=== PATIENT | female | born 1975 | race Caucasian/White ===

== ENCOUNTER 2019-10-02 15:37 | Emergency (ER) | payer SELFPAY ==
[2019-10-02 15:43] VITALS: BP 131/87; PULSE 88; RESP 18; TEMP 36.7; O2SAT 96
--- NOTE | 2019-10-02 16:16 | ED.GENADUL_ITS ---
Discharge Plan Disposition Patient Disposition: HOME Condition: Stable Discharge Details Chief Complaint: Orthopedic Clinical Impression: Contusion of elbow Primary Care Provider: Arlen Ryan ED Provider: Dena Honeycutt Home Meds and New Rx's Prescriptions: Continued amiloride 5 MG tablet 5 mg PO DAILY RF: 0 sumatriptan succinate 100 MG tablet 100 mg PO PRN PRNRF: 0 lisinopril 2.5 MG tablet 2.5 mg PO DAILY RF: 0 hydrochlorothiazide 12.5 MG tablet 12.5 mg PO DAILY RF: 0 naproxen 500 MG tablet 500 mg PO BID Qty: 60 RF: 0 potassium chloride [Klor-Con M10] 10 MEQ tablet,ER particles/crystals 20 meq PO DAILY Qty: 90 RF: 0 magnesium oxide 400 MG capsule 800 mg PO DAILY Qty: 90 RF: 0 pantoprazole [Protonix] 40 MG tablet,delayed release (DR/EC) 40 mg PO DAILY Qty: 30 RF: 0 oxycodone-acetaminophen 1 EACH tablet 1 ea PO QID PRN PRN (Reason: Pain) Qty: 10 RF: 0 ondansetron 4 MG tablet,disintegrating 4 mg PO QID PRN PRN (Reason: Nausea) Qty: 6 RF: 0 Discharge Instructions Instructions: Contusion in Adults (ED) Additional Instructions: Follow up with primary care provider in 3-5 days. Return to ED sooner if any worsening or concerns. Please take Tylenol or Ibuprofen with food every 4-6 hours as needed for pain and swelling. Rest ice compression elevation Referrals: Arlen Ryan [Primary Care Provider] - Discharge Data Discharge Date/Time-TO BE ENTERED AT DEPARTURE: 10/02/19 17:50 Medical Decision Making Radiology Report Call: [phone] assistance Online chat: [email or web address] Patient Name: CECILE HUNT Institution Name: [place] [address] Study Type: XR ELBOW COMPLETE MIN OF 3 VIEWS Ordered As: XR RIGHT ELBOW COMPLETE Date of Dictation: 02 Oct 2019 EST Date of Exam: 02 Oct 2019 EST Account Number: Patient : [id number] Patient Location: er Lead Fire Protection Engineer: Referring Physician: Dena HONEYCUTT This interpretation is based upon the receipt of 3 images. MILKING MACHINE MECHANIC (QA) DISCREPANCY? If there is a discrepancy between the preliminary and final interpretation, please notify [facility] via [email or web address]. If you do not have access to our QA portal, call our QA team at [phone] CONFIDENTIALITY STATEMENT This report is intended only for the use of the referring physician, and only in accordance with law, If you received this in error, call [phone] Page 1 of 1 PROCEDURE INFORMATION: Exam: XR Right Elbow Exam date and time: 10/02/2019 4:25 PM Age: 43 years old Clinical indication: Elbow; Right; Patient HX: Fall 14 days ago, pain. TECHNIQUE: Imaging protocol: XR Right elbow. Views: 3 or more views. COMPARISON: No relevant prior studies available. FINDINGS: Bones/joints: There is no evidence of acute fracture.There is no evidence of malalignment or dislocation. Soft tissues: Normal. IMPRESSION: There is no evidence of acute fracture.There is no evidence of malalignment or dislocation. Thank you for allowing us to participate in the care of your patient. Dictated and Authenticated by: Avery Roberts MD 10/02/2019 4:44 PM Eastern Time ([place] & [place]) No evidence of acute fracture, XR noted above. Patient given sling and nando wrap.Instructed on [facility] home care and follow up with PCP. HPI General Date/Time Provider Initiated Documentation: 10/02/19 16:13 . Limitations to Documentation: no limitations . Information obtained by: patient . HPI Narrative: 43-year-old female presents with right elbow contusion after a trip and fall on September 22 hitting her right elbow on the lip of cement. Denies any other complaints or injuries, no neck pain back pain or LOC. On exam she does have a contusion noted to the posterior part of her elbow. Has full range of motion distal pulses intact. Related Data Home Medications Medication Instructions Recorded Confirmed amiloride 5 mg PO DAILY 03/20/14 02/27/16 sumatriptan succinate 100 mg PO PRN PRN 01/05/15 02/27/16 hydrochlorothiazide 12.5 mg PO DAILY 10/05/15 02/27/16 lisinopril 2.5 mg PO DAILY 10/05/15 02/27/16 magnesium oxide 800 mg PO DAILY #90 capsule 10/06/15 02/27/16 naproxen 500 mg PO BID #60 tablet 10/06/15 02/27/16 pantoprazole [Protonix] 40 mg PO DAILY #30 tablet. 10/06/15 02/27/16 potassium chloride [Klor-Con M10] 20 meq PO DAILY #90 tabcr 10/06/15 02/27/16 ondansetron 4 mg PO QID PRN PRN #6 tabef 02/27/16 oxycodone-acetaminophen 1 ea PO QID PRN PRN #10 tablet 02/27/16 Previous Rx's Medication Instructions Recorded magnesium oxide 800 mg PO DAILY #90 capsule 10/06/15 naproxen 500 mg PO BID #60 tablet 10/06/15 pantoprazole [Protonix] 40 mg PO DAILY #30 tablet. 10/06/15 potassium chloride [Klor-Con M10] 20 meq PO DAILY #90 tabcr 10/06/15 ondansetron 4 mg PO QID PRN PRN #6 tabef 02/27/16 oxycodone-acetaminophen 1 ea PO QID PRN PRN #10 tablet 02/27/16 Allergies Allergy/AdvReac Type Severity Reaction Status Date / Time adhesive Allergy rash/bliste Unverified 10/02/19 15:48 rs Penicillins Allergy Hives Unverified 10/02/19 15:48 eggplant Allergy Skin Rash Uncoded 10/02/19 15:48 peppers Allergy Skin Rash Uncoded 10/02/19 15:48 potatoes Allergy Skin Rash Uncoded 10/02/19 15:48 tomatoes Allergy Skin Rash Uncoded 10/02/19 15:48 General Stated Complaint: Orthopedic PJ: 4 Review of Systems Narrative: Constitutional: Negative for weight loss, alert and oriented, well groomed, normal body habitus, appears comfortable. HEENT: Denies trauma, headaches, blurry vision, nasal discharge, sore throat, trouble swallowing. Chest: Denies chest pain, palpitations, irregular rhythm, hypertension. Respiratory: Denies Shortness of breath, cough, hemoptysis. GI: Denies abdominal pain, nausea, vomiting, diarrhea, constipation. : Denies dysuria, hematuria, flank pain, vaginal bleeding, rectal bleeding. Neuro: Denies dizziness, blurry vision, weakness, syncope, headache or facial numbness. Hematologic: Denies easy bruising, intolerance to heat or cold, hair loss. PFSH Social History Smoking/Tobacco Use Status: Never Drug use: Daily Substance use type: marijuana Do you feel safe at home: Yes Do you feel safe in your relationship?: Yes Exam Const General: cooperative Nutritional Appearance: average body habitus Orientation: alert, awake and oriented x3 Extrem Right upper extremity: full ROM, normal capillary refill and elbow/forearm Details: tenderness and ecchymosis; ROM normal, no abrasions, no crepitus and no deformity; no edema Course Vital Signs Vital signs: Vital Signs Temperature 36.7 C 10/02/19 15:43 Pulse 88 10/02/19 15:43 Respiratory Rate 18 10/02/19 15:43 Blood Pressure 131/87 10/02/19 15:43 Pulse Oximetry 96 10/02/19 15:43 Temperature 36.7 C 10/02/19 15:43 Temperature Source Skin 10/02/19 15:43 Pulse 88 10/02/19 15:43 Respiratory Rate 18 10/02/19 15:43 Respiratory Effort Non-Labored 10/02/19 15:47 Blood Pressure 131/87 10/02/19 15:43 Blood Pressure Position Sitting 10/02/19 15:43 Pulse Oximetry 96 10/02/19 15:43 Oxygen Delivery Method Room Air 10/02/19 15:43 Oxygen Flow Rate 0 10/02/19 15:43 Pain Level 7 10/02/19 15:43
--- NOTE | 2019-10-02 16:24 | DI.RAD_ITS ---
EXAM: XR ELBOW RT COMPLETE CLINICAL HISTORY: Fall, injury. TECHNIQUE: 2D digital imaging was performed. COMPARISON: No exams were available for comparison FINDINGS: BONES: No acute fracture is present. No bony destructive lesion is seen. JOINTS: The elbow is normally aligned. No joint effusion is seen. SOFT TISSUE: Normal. IMPRESSION: Unremarkable radiographs of the right elbow.
--- NOTE | 2019-10-02 16:43 | DI.VRAD_ITS ---
PROCEDURE INFORMATION: Exam: XR Right Elbow Exam date and time: 10/02/2019 4:25 PM Age: 43 years old Clinical indication: Elbow; Right; Patient HX: Fall 14 days ago, pain. TECHNIQUE: Imaging protocol: XR Right elbow. Views: 3 or more views. COMPARISON: No relevant prior studies available. FINDINGS: Bones/joints: There is no evidence of acute fracture.There is no evidence of malalignment or dislocation. Soft tissues: Normal. IMPRESSION: There is no evidence of acute fracture.There is no evidence of malalignment or dislocation. Dictated and Authenticated by: Avery Roberts MD. Ordering:GIANFRANCO Fernandes MD
[2019-10-02] MEDS: Ibuprofen 400 MG TAB PO (17:26)
[2019-10-02 17:36] VITALS: BP 131/87; PULSE 88; RESP 18; TEMP 36.7; O2SAT 96
== END 2019-10-02 17:50 | disposition home or self-care (01) ==
PROVIDERS: Emergency Provider Registered Nurse Emergency; PCP Naturopath
DX: S50.01XA Contusion of right elbow, initial encounter (principal); W01.0XXA Fall on same level from slipping, tripping and stumbling without subsequent striking against object, initial encounter
CPT/HCPCS: 99283; 73080; L3650

== ENCOUNTER 2020-06-19 19:22 | Outpatient (REF) | payer MEDICAID, SELFPAY ==
[2020-06-19 19:44] LABS: HCT 39.3 % (36.0-46.0); HGB 13.7 g/dL (11.2-15.7); MCH 31.6 pg (27.0-33.0); MCHC 34.9 % (32.0-36.0); MCV 90.6 fL (80-95); MPV 11.6 fL (8.0-11.0); Platelet Count 264 10^3/uL (130-400); RBC 4.34 10^6/uL (3.93-5.22); RDW 12.5 % (11.7-14.6); RDW-SD 41.2 fL; WBC 5.42 10^3/uL (4.4-10.8)
[2020-06-19 20:02] LABS: Anion Gap 6.9 mmol/L (3-11); BUN 12 mg/dL (7-18); C-Reactive Protein 0.24 mg/dL (0.0-0.3); CO2 31.1 mmol/L (21.0-32.0); CREATININE 0.84 mg/dL (0.55-1.02); Calcium 9.6 mg/dL (8.5-10.1); Chloride 102 mmol/L (98-107); Glucose 101 mg/dL (74-106); Sodium 140 mmol/L (136-145)
[2020-06-19 20:08] LABS: Potassium 2.9 mmol/L (3.5-5.1)
[2020-06-19 20:43] LABS: ESR 16 mm/hr (0-20)
[2020-06-21 15:07] LABS: ANA Interpretation Positive (Negative); ANA Titer Pattern 1:160 Speckled
== END 2020-06-19 19:42 ==
LOC: NCHCN 19:22
PROVIDERS: PCP Naturopath; Visit Provider Nurse Practitioner Family
DX: M25.59 Pain in other specified joint (principal)
CPT/HCPCS: 80048; 85027; 85652; 84443; 86038; 86140

== ENCOUNTER 2020-07-04 21:24 | Outpatient (REF) | payer MEDICAID, SELFPAY ==
[2020-07-04 19:44] LABS: Potassium 3.2 mmol/L (3.5-5.1)
== END 2020-07-04 21:44 ==
LOC: NCHCN 21:24
PROVIDERS: PCP Naturopath; Visit Provider Nurse Practitioner Family
DX: E87.6 Hypokalemia (principal)
CPT/HCPCS: 84132

== ENCOUNTER 2020-07-25 10:17 | Outpatient (REF) | payer MEDICAID, SELFPAY ==
[2020-07-25 19:29] LABS: Potassium 3.6 mmol/L (3.5-5.1)
== END 2020-07-25 10:37 ==
LOC: NCHCN 10:17
PROVIDERS: PCP Naturopath; Visit Provider Nurse Practitioner Family
DX: E87.6 Hypokalemia (principal)
CPT/HCPCS: 84132

== ENCOUNTER 2020-10-04 00:29 | Outpatient (CLI) | payer MEDICAID, SELFPAY ==
--- NOTE | 2020-10-04 | DI.MRI_ITS ---
EXAM: MR LUMBAR SPINE WO CLINICAL HISTORY: LUMBAR RADICULITIS,M54.16. TECHNIQUE: Multiplanar multisequence MRI of the Lumbar spine was performed. COMPARISON: CT ABD PELVIS WITH CONTRAST from 02/27/2016 FINDINGS: Bones: The last intervertebral disc space is designated the L5/S1 level for the numbering purpose of this examination. The vertebral body heights are well maintained. Alignment is satisfactory. Mild d egenerative endplate signal changes are seen from L1-L2 through L4-L5. There is a Schmorl's node in t he superior endplate of L4. Cord: The conus tip ends at the L1 level. It is of normal size and signal intensity. T12-L1: No disc herniations or bulges are present. No central spinal canal or neural foraminal stenos is. L1-2: No disc herniations or bulges are present. No central spinal canal or neural foraminal stenosis . L2-3: No disc herniations or bulges are present. No central spinal canal or neural foraminal stenosis . L3-4: There is disc desiccation and a small diffuse disc bulge. No central spinal canal or neural fo raminal stenosis. L4-5: There is disc desiccation and a small diffuse disc bulge. No central spinal canal or neural fo raminal stenosis. L5-S1: No disc herniations or bulges are present. No central spinal canal or neural foraminal stenosi s. Soft tissues: The visualized SI joints and sacrum are well maintained. The paraspinal soft tissues ar e unremarkable. IMPRESSION: Mild degenerative changes in the lumbar spine but no central spinal canal stenosis, focal disc hernia tion or neural foraminal stenosis. DATA REPOSITORY:
== END 2020-10-04 00:30 | disposition home or self-care (01) ==
LOC: DI 00:30
PROVIDERS: PCP Nurse Practitioner Family; Visit Provider Nurse Practitioner Family
DX: M47.816 Spondylosis without myelopathy or radiculopathy, lumbar region (principal); M54.16 Radiculopathy, lumbar region
CPT/HCPCS: 72148

== ENCOUNTER 2020-10-23 11:12 | Outpatient (REF) | payer MEDICAID, SELFPAY ==
[2020-10-23 16:55] LABS: Anion Gap 10.1 mmol/L (3-11); BUN 15 mg/dL (7-18); CO2 28.9 mmol/L (21.0-32.0); CREATININE 0.7 mg/dL (0.55-1.02); Calcium 9.1 mg/dL (8.5-10.1); Chloride 101 mmol/L (98-107); Glucose 97 mg/dL (74-106); Magnesium 1.9 mg/dL (1.8-2.4); Sodium 140 mmol/L (136-145)
[2020-10-23 17:27] LABS: Iron 76 ug/dL (50-170); Total Iron Binding Capacity 314 ug/dL (250-450); Transferrin Sat 24 % (15-50)
[2020-10-23 18:55] LABS: Potassium 2.9 mmol/L (3.5-5.1)
[2020-10-25 04:42] LABS: Vitamin D 25 Total 24.9 ng/ml (30-100)
== END 2020-10-23 11:13 | disposition home or self-care (01) ==
LOC: NCHCN 11:12
PROVIDERS: PCP Nurse Practitioner Family; Visit Provider Nurse Practitioner Family
DX: R53.83 Other fatigue (principal); E55.9 Vitamin D deficiency, unspecified
CPT/HCPCS: 80048; 82306; 83540; 83550; 83735

== ENCOUNTER 2020-11-02 13:50 | Outpatient (REF) | payer MEDICAID, SELFPAY ==
[2020-11-02 15:59] LABS: Potassium 3.6 mmol/L (3.5-5.1)
== END 2020-11-02 13:51 | disposition home or self-care (01) ==
LOC: NCHCN 13:50
PROVIDERS: PCP Nurse Practitioner Family; Visit Provider Nurse Practitioner Family
DX: E87.6 Hypokalemia (principal)
CPT/HCPCS: 84132

== ENCOUNTER 2020-11-27 09:29 | Outpatient (CLI) | payer MEDICAID, SELFPAY ==
[2020-11-27 09:38] VITALS: BP 118/82; PULSE 77; RESP 16; TEMP 36.5; O2SAT 97
[2020-11-27] MEDS: Omnipaque 240 MG/ML 50 ML BTL IJ (10:30)
[2020-11-27] MEDS: methylPREDNISolone ACETATE 80 MG/ML VIAL IJ (10:34)
--- NOTE | 2020-11-27 10:35 | DI.RAD_ITS ---
EXAM: XR PAIN CLINIC SACRIOILIAC 2V CLINICAL HISTORY: Dx: Sacroiliac Joint Dysfunction. TECHNIQUE: Fluoroscopy was provided for the referring physician for guidance with performing injecti on procedure. COMPARISON: No exams were available for comparison FINDINGS: Please see procedure note for details. RADIATION DOSE DELIVERED: Fluoro time 36 seconds.
--- NOTE | 2020-11-27 10:36 | PDOC.PAIN_ITS ---
Pain Clinic Procedure Note Procedure Note Procedure Note: INTRA-ARTICULAR SI JOINT INJECTION CECILE HUNT has been referred to the [facility] for intra- articular SI joint injection. pre-operative diagnosis: sacroiliac joint dysfunction post-operative diagnosis: same as above Patient was interviewed and the medical record reviewed. There were no medical, pharmacologic, radiographic or other structural contraindications to attempting fluoroscopically guided intra-articular SI joint injection. Risks and expected side effects as well as potential benefit of the procedure were reviewed and voiced concerns addressed. The printed consent form was signed and witnessed. Standard time-out procedure was performed. Patient was placed in the prone position on the fluoroscopy table and automated blood pressure cuff and pulse oximeter applied. The skin entry point for approaching right SI joints was identified under the most advantageous fluoroscopic view and marked. Following thorough Chlorhexadine preparation of the skin and draping and 1% lidocaine infiltration of the skin entry point and subcutaneous tissues, a 22 gauge spinal needle was placed under fluoroscopic guidance into right SI joints was identified under the most advantageous fluoroscopic view and marked. Following thorough Chlorhexadine preparation of the skin and draping and 1% lidocaine infiltration of the skin entry point and subcutaneous tissues, a 22 gauge spinal needle was placed under fluoroscopic guidance into right SI joint. Intra-articular placement was confirmed by a clear arthrogram resulting from the injection of 0.25ml Omnipaque 240, 1ml 1% lidocaine, and 40mg Depomedrol were injected intra-articularily with an initial reproduction of a significant component of the usual pain. Vital signs were stable throughout the procedure and were as recorded in the docflowsheet by the nursing staff. Follow up plans and appointments were discussed with the patient. Post procedure instruction was given as documented in nursing documentation and having met discharge criteria, and was discharged from the [facility]. COMMENTS: patient tolerated procedure well. Letitia Kilgore MD Pain Management CC: Angelica Murphy
[2020-11-27 10:43] VITALS: BP 124/76; PULSE 82; RESP 18; O2SAT 98
== END 2020-11-27 09:30 | disposition home or self-care (01) ==
LOC: PC 09:29
PROVIDERS: PCP Nurse Practitioner Family; Visit Provider Internal Medicine
DX: M53.3 Sacrococcygeal disorders, not elsewhere classified (principal)
CPT/HCPCS: 27096; 72200; J1040; Q9967

== ENCOUNTER 2020-12-18 14:58 | Outpatient (REF) | payer MEDICAID, SELFPAY ==
[2020-12-18 13:26] LABS: Potassium 3.3 mmol/L (3.5-5.1)
== END 2020-12-18 14:59 | disposition home or self-care (01) ==
LOC: NCHCN 14:58
PROVIDERS: PCP Nurse Practitioner Family; Visit Provider Nurse Practitioner Family
DX: E87.6 Hypokalemia (principal)
CPT/HCPCS: 84132

== ENCOUNTER 2021-01-16 15:20 | Outpatient (REF) | payer MEDICAID, SELFPAY ==
[2021-01-16 16:01] LABS: Potassium 3.6 mmol/L (3.5-5.1)
== END 2021-01-16 15:21 | disposition home or self-care (01) ==
LOC: NCHCN 15:20
PROVIDERS: PCP Nurse Practitioner Family; Visit Provider Nurse Practitioner Family
DX: E87.6 Hypokalemia (principal)
CPT/HCPCS: 84132

== ENCOUNTER 2021-01-17 13:57 | Outpatient (REF) | payer MEDICAID, SELFPAY ==
[2021-01-21 15:16] LABS: 2-Hydroxy Ethyl Flurazepam Not Detected ng/mL (Cutoff: 10); 3,4-methylenedioxyamphetamine Not Detected ng/mL (Cutoff: 100); 3,4-methylenedioxyethylampheta Not Detected ng/mL (Cutoff: 100); 3,4-methylenedioxymethamphetam Not Detected ng/mL (Cutoff: 100); 6-monoacetylmorphine Not Detected ng/mL (Cutoff: 25); Alpha-Hydroxy Midazolam Not Detected ng/mL (Cutoff: 10); Alpha-Hydroxy Triazolam Not Detected ng/mL (Cutoff: 10); Alpha-Hydroxyalprazolam Not Detected ng/mL (Cutoff: 10); Alpha-OH-alprazolam Glucuronid Not Detected ng/mL (Cutoff: 50); Alprazolam Not Detected ng/mL (Cutoff: 10); Amphetamine Not Detected ng/mL (Cutoff: 100); Barbiturates Negative ng/mL (Cutoff: 200); Buprenorphine Not Detected ng/mL (Cutoff: 5); Chlordiazepoxide Not Detected ng/mL (Cutoff: 10); Clobazam Not Detected ng/mL (Cutoff: 10); Clonazepam Not Detected ng/mL (Cutoff: 10); Cocaine Negative ng/mL (Cutoff: 150); Codeine Not Detected ng/mL (Cutoff: 25); Comment Normal; Diazepam Not Detected ng/mL (Cutoff: 10); Dihydrocodeine Not Detected ng/mL (Cutoff: 25); EDDP Not Detected ng/mL (Cutoff: 25); Ephedrine Not Detected ng/mL (Cutoff: 100); Fentanyl Not Detected ng/mL (Cutoff: 2); Flurazepam Not Detected ng/mL (Cutoff: 10); Hydrocodone Not Detected ng/mL (Cutoff: 25); Hydromorphone Not Detected ng/mL (Cutoff: 25); Hydromorphone-3-beta-glucuroni Not Detected ng/mL (Cutoff: 100); Lorazepam Not Detected ng/mL (Cutoff: 10); Lorazepam Glucuronide Not Detected ng/mL (Cutoff: 50); Meperidine Not Detected ng/mL (Cutoff: 25); Methadone Not Detected ng/mL (Cutoff: 25); Methamphetamine Not Detected ng/mL (Cutoff: 100); Methylphenidate Not Detected ng/mL (Cutoff: 20); Midazolam Not Detected ng/mL (Cutoff: 10); Morphine Not Detected ng/mL (Cutoff: 25); N-Desmethylclobazam Not Detected ng/mL (Cutoff: 200); N-desmethyltapentadol Not Detected ng/mL (Cutoff: 50); Naloxone Not Detected ng/mL (Cutoff: 25); Norbuprenorphine Not Detected ng/mL (Cutoff: 5); Norfentanyl Not Detected ng/mL (Cutoff: 2); Norhydrocodone Not Detected ng/mL (Cutoff: 25); Normeperidine Not Detected ng/mL (Cutoff: 25); Noroxycodone Not Detected ng/mL (Cutoff: 25); Noroxymorphone Not Detected ng/mL (Cutoff: 25); O-desmethyltramadol Not Detected ng/mL (Cutoff: 25); Oxazepam Glucuronide Not Detected ng/mL (Cutoff: 50); Phencyclidine (PCP) Not Detected ng/mL (Cutoff: 20); Phentermine Not Detected ng/mL (Cutoff: 100); Prazepam Not Detected ng/mL (Cutoff: 10); Propoxyphene Not Detected ng/mL (Cutoff: 25); Pseudoephedrine Not Detected ng/mL (Cutoff: 100); Ritalinic Acid Not Detected ng/mL (Cutoff: 100); Specific Gravity 1.004; Tapentadol Not Detected ng/mL (Cutoff: 25); Temazepam Not Detected ng/mL (Cutoff: 10); Temazepam Glucuronide Not Detected ng/mL (Cutoff: 50); Tetrahydrocannabinol Presumptive Positive ng/mL (Cutoff: 50); Tramadol Not Detected ng/mL (Cutoff: 25); Triazolam Not Detected ng/mL (Cutoff: 10); Zolpidem Phenyl-4-Carboxy acid Not Detected ng/mL (Cutoff: 10); pH 7.9
[2021-01-22 06:54] LABS: Carboxy-THC Interpretation Positive.; Delta-9 CarboxyThc by LC-MS/MS 224 ng/mL (Cutoff:<3)
== END 2021-01-17 13:58 | disposition home or self-care (01) ==
LOC: LBN 13:57
PROVIDERS: PCP Nurse Practitioner Family; Visit Provider Nurse Practitioner Family
DX: M47.816 Spondylosis without myelopathy or radiculopathy, lumbar region (principal); M53.3 Sacrococcygeal disorders, not elsewhere classified; Z79.899 Other long term (current) drug therapy
CPT/HCPCS: 80307; 80347; 80349; 80364

== ENCOUNTER 2021-02-01 14:52 | Outpatient (CLI) | payer MEDICAID, SELFPAY ==
--- NOTE | 2021-02-01 | DI.RAD_ITS ---
Exam(s) XR KNEE RT 3V AP,LAT,EKATERINA EXAM: XR KNEE RT 3V AP,LAT,EKATERINA CLINICAL HISTORY: RT KNEE PAIN M25.561. TECHNIQUE: 2D digital imaging was performed. COMPARISON: CR CHEST 2 VIEWS PA,LAT from 10/05/2015 FINDINGS: BONES: No acute fracture is present. No bony destructive lesion is seen. JOINTS: The knee is normally aligned. No joint effusion is seen. SOFT TISSUE: Normal. IMPRESSION: Unremarkable radiographs of the right knee. DATA REPOSITORY: RADIATION DOSE DELIVERED:
== END 2021-02-01 15:12 ==
PROVIDERS: PCP Nurse Practitioner Family; Visit Provider Nurse Practitioner Family
DX: M25.561 Pain in right knee (principal)
CPT/HCPCS: 73562

== ENCOUNTER 2021-02-19 09:44 | Outpatient (CLI) | payer MEDICAID, SELFPAY ==
--- NOTE | 2021-02-19 06:00 | DI.RAD_ITS ---
Exam(s) XR PAIN CLINIC LUMBAR SP 2V EXAM: XR PAIN CLINIC LUMBAR SP 2V CLINICAL HISTORY: Dx: Lumbar Spondylosis TECHNIQUE: 2D and realtime digital imaging was performed. COMPARISON: No exams were available for comparison FINDINGS: C-arm fluoroscopy was utilized by Dr. Kilgore during bilateral lumbar medial branch blocks. Hard copies s how needle placement bilaterally adjacent to the neural foramina at the L3-4, L4-5, and L5 S levels b ilaterally. IMPRESSION: RADIATION DOSE DELIVERED: rose marie Diaz= 14.2 mGy
[2021-02-19 10:07] VITALS: BP 123/70; PULSE 85; RESP 14; TEMP 36.6; O2SAT 100
[2021-02-19] MEDS: Omnipaque 240 MG/ML 50 ML BTL IJ (10:43)
[2021-02-19] MEDS: Bupivacaine 0.5% Pres-Free 10 ML VIAL IJ (10:44)
[2021-02-19 10:46] VITALS: BP 139/62; PULSE 76; RESP 17; O2SAT 99
--- NOTE | 2021-02-19 10:56 | PDOC.PAIN ---
Pain Clinic Procedure Note Procedure Note Procedure Note: Lumbar/Sacral Medial Branch Blocks Barbi Ivey has been referred to the [facility] for lumbar/sacral medial branch blocks. Pre-operative diagnosis: lumbar spondylosis Post-operative diagnosis: same as above COMMENTS: patient was evlauated by Ms Leigh Dodge APRN in pain clinic, notes and images were reviewed by me. patient is here for diagnostic lumbar medial branch nerve block. Patient was interviewed and the medical record reviewed. There were no medical, pharmacologic, radiographic or other structural contraindications to attempting fluoroscopically guided local anesthetic lumbar/sacral medial branch blocks. Risks and expected side effects as well as potential benefit of the procedure were reviewed and voiced concerns addressed. The printed consent form was signed and witnessed. Standard time-out procedure was performed. Patient was placed in the prone position on the fluoroscopy table and automated blood pressure cuff and pulse oximeter applied. The skin entry points for approaching the anatomic target points of the segmental medial branches of bilateral L3, L4, L5-DR were identified with anfluoroscopy and marked. Following thorough Chlorhexadine preparation of the skin and draping and 1% lidocaine infiltration of the skin entry points and subcutaneous tissues, a 22 gauge spinal needle was placed under fluoroscopic guidance down on to the target point for each respective segmental medial branch.Position was confirmed in A/P, oblique and lateral views with 0.25ml of omnipaque 240. Coult be this method .5ml 0.5% Bupivacaine was injected . Vital signs were stable throughout the procedure and were as recorded in the docflowsheet by the nursing staff. Follow up plans and appointments were discussed and was instructed to keep careful note of how the usual pain was modified by these injections. Specifically was asked to keep a pain diary for the next 24 hours using a numeric pain scale of 0-10 and report these results at the follow-up visit. Post procedure instruction was given as documented in the nursing documentation and having met discharge criteria. Patient was discharged from the Pain Management Center. Based on the medial branches blocked today, if the patient has adequate relief and we are able to proceed to radiofrequency ablation, the treatment should result in the denervation of the bilateral L4/5 and L5/S1. We would expect to denervate a total of 4 facets during the radiofrequency ablation. COMMENTS: pre-procedure VAS score 7 out of 10, post-procedure VAS score 6/10 Letitia Kilgore MD Pain Management CC: Angelica Murphy
== END 2021-02-19 09:45 | disposition home or self-care (01) ==
LOC: PC 09:45
PROVIDERS: PCP Nurse Practitioner Family; Visit Provider Internal Medicine
DX: M47.816 Spondylosis without myelopathy or radiculopathy, lumbar region (principal)
CPT/HCPCS: 64493; 64494; 72100; Q9967

== ENCOUNTER 2021-02-27 01:21 | Outpatient (CLI) | payer MEDICAID, SELFPAY ==
--- NOTE | 2021-02-27 | DI.MAMMO_ITS ---
Exam(s) MAMMO DIAGNOSTIC BI EXAM: MAMMO DIAGNOSTIC BI CLINICAL HISTORY: DIAGNOSTIC, RT BREAST LUMP. TECHNIQUE: Unilateral spot mammographic images were obtained with 3D [employer] and util izing computer aided detection (CAD). COMPARISON: Prior mammograms dating back to 2014, the most recent being 2015. This 45 year old patie nt feels a lump at approximately 6 o'clock position of right breast where she recently had a bruise w ith skin discoloration (which has decreased) but she does not recall actual trauma to the breast. Den ies fever and denies nipple discharge. FINDINGS: No new significant radiograph findings in left breast. The anterior aspect right breast 6 o'clock position subtle somewhat amorphous density which correspon ds to a palpable finding and the finding on the ultrasound today. There are no malignant-appearing mi crocalcification groups is region or elsewhere in either breast. No new architectural distortion or skin thickening-traction IMPRESSION: Asymmetric amorphous appearing density at 6 o'clock position, this corresponding to a thin fluid jodie ection a seen on today's ultrasound and exactly corresponding to her palpable finding. These findings have benign appearance. Appropriate follow-up is repeat right breast imaging in 3 months, earlier if clinically indicated. The patient was informed of the findings and follow-up recommendations prior to leaving the [facility]. BI-RADS Category 3 - 3 month - Probably Benign Finding: Recommend follow-up mammography in 3 months Breast Density - Category B - Scattered areas of fibroglandular density Breast density Category C or D implies that the patient has dense breast tissue. Dense breast tissue can make it harder to find cancer on a mammogram. Dense breast tissue is also associated with an incr eased risk of breast cancer. This information about the result of the mammogram report was provided to the patient to raise their awareness. Use this report when you speak with the patient about their risks for breast cancer, which includes their family history. At that time, you may recommend additional screening tests (Ultrasoun d or MRI) as these tests may add significant information. A negative radiographic report should not delay biopsy if a dominant or clinically suspicious mass is present. Up to ten percent of cancers are not identified on mammography. A negative report may reinforce clinical impression. Adenosis and dense breasts may obscure an underlying neoplasm. False positive reports average 6 to 10%. Patient will receive a letter notifying them of these results.
--- NOTE | 2021-02-27 | DI.US_ITS ---
Exam(s) US BREAST RT COMPLETE EXAM: US BREAST RT COMPLETE CLINICAL HISTORY: RT BREAST LUMP, F/U MAMMO. TECHNIQUE: Complete ultrasound of the RIGHT breast was performed including all 4 quadrants, the retr oareolar region, and the ipsilateral axilla. COMPARISON: Prior mammograms were reviewed. Today's diagnostic right breast mammogram was reviewed this 45-year-old patient feels a lump in her right breast, apparently in an area of previous skin dis coloration from apparent bruise. She denies fevers and denies nipple discharge. FINDINGS: At the 5-6 o'clock position there is a thin fluid collection which corresponds to the finding on the mammogram. This measures approximately 16 millimeters x 2.5 millimeters. No other focal findings in all 4 quadrants nor in the immediate retroareolar region. Ipsilateral right axilla is negative for significant adenopathy. IMPRESSION: Benign-appearing finding at 5-6 o'clock position as described above, this correspond to the finding o n the mammogram. Appropriate follow-up is repeat right breast ultrasound in 3 months, earlier if clinically indicated. BI-RADS Category 3 - 3 month - Probably Benign Finding: Recommend follow-up ultrasound in 3 months Breast Density - Category B - Scattered areas of fibroglandular density Breast density Category C or D implies that the patient has dense breast tissue. Dense breast tissue can make it harder to find cancer on a mammogram. Dense breast tissue is also associated with an incr eased risk of breast cancer. This information about the result of the mammogram report was provided to the patient to raise their awareness. Use this report when you speak with the patient about their risks for breast cancer, which includes their family history. At that time, you may recommend additional screening tests (Ultrasoun d or MRI) as these tests may add significant information. A negative radiographic report should not delay biopsy if a dominant or clinically suspicious mass is present. Up to ten percent of cancers are not identified on mammography. A negative report may reinforce clinical impression. Adenosis and dense breasts may obscure an underlying neoplasm. False positive reports average 6 to 10%. Patient will receive a letter notifying them of these results.
== END 2021-02-27 01:41 ==
PROVIDERS: PCP Nurse Practitioner Family; Visit Provider Nurse Practitioner Family
DX: N63.15 Unspecified lump in the right breast, overlapping quadrants (principal); R92.8 Other abnormal and inconclusive findings on diagnostic imaging of breast
CPT/HCPCS: 76642; 77062; 77066; G0279

== ENCOUNTER 2021-05-31 02:32 | Outpatient (CLI) | payer MEDICAID, SELFPAY ==
--- NOTE | 2021-05-31 | DI.US_ITS ---
Exam(s) US BREAST RT COMPLETE EXAM: US BREAST RT COMPLETE CLINICAL HISTORY: 3 MO F/U,F/U MAMMO,DENSITY TECHNIQUE: Ultrasound right breast performed using standard protocol. COMPARISON: US US BREAST RT COMPLETE from 02/27/2021 FINDINGS: No solid mass, hypoechoic foci, areas of abnormal shadowing, or areas of skin thickening. The linear thin fluid collection is again seen at the 5 o'clock position of the right breast. This may represen t a duct. There appears to be some internal debris. No definite mass is appreciated. IMPRESSION: 1. No definite evidence for malignancy. Stable appearance of the fluid collection at the 5 o'clock p osition of the right breast. This may represent a duct. 2. A 3 month follow-up right ultrasound is recommended. 3. Findings were discussed with the patient on the date of the examination. BI-RADS Category 3 - Probably Benign Finding: Recommend follow-up imaging in 3 months DATA REPOSITORY:
== END 2021-05-31 02:52 ==
PROVIDERS: PCP Nurse Practitioner Family; Visit Provider Nurse Practitioner Family
DX: R92.8 Other abnormal and inconclusive findings on diagnostic imaging of breast (principal)
CPT/HCPCS: 76642

== ENCOUNTER 2021-09-02 00:32 | Outpatient (CLI) | payer MEDICAID, SELFPAY ==
--- NOTE | 2021-09-02 | DI.US_ITS ---
Exam(s) US BREAST RT COMPLETE EXAM: US BREAST RT COMPLETE CLINICAL HISTORY: RT BREAST LUMP, N63.0, 3 MONTH F/U, R92.8 TECHNIQUE: Ultrasound right breast performed using standard protocol. COMPARISON: MG MG MAMMO DIAGNOSTIC BI from 02/27/2021 US US BREAST RT COMPLETE from 02/27/2021 US US BREAST RT COMPLETE from 02/27/2021 MG MG MAMMO DIAGNOSTIC BI from 02/27/2021 US US BREAST RT COMPLETE from 05/31/2021 US US BREAST RT COMPLETE from 05/31/2021 FINDINGS: No solid or cystic masses, hypoechoic foci, areas of abnormal shadowing, or areas of skin thickening. Previously noted elongated fluid collection or versus dilated duct is no longer seen. IMPRESSION: No sonographically suspicious finding. BI-RADS Category 1 - Negative Bilateral screening mammography is due in January 2022. DATA REPOSITORY:
== END 2021-09-02 00:52 ==
PROVIDERS: PCP Nurse Practitioner Family; Visit Provider Nurse Practitioner Family
DX: R92.8 Other abnormal and inconclusive findings on diagnostic imaging of breast (principal); N63.15 Unspecified lump in the right breast, overlapping quadrants
CPT/HCPCS: 76642

== ENCOUNTER 2021-10-09 01:49 | Outpatient (CLI) | payer MEDICAID, SELFPAY ==
[2021-10-09 10:01] LABS: Iron 87 ug/dL (50-170); Total Iron Binding Capacity 313 ug/dL (250-450)
[2021-10-09 10:10] LABS: ALT 32 U/L (14-59); AST 21 U/L (15-37); Albumin 3.7 g/dL (3.4-5.0); Alkaline Phosphatase 95 U/L (46-116); Anion Gap 9.4 mmol/L (3-11); BUN 17 mg/dL (7-18); Bilirubin, Total 0.5 mg/dL (0.2-1.0); CO2 30.6 mmol/L (21.0-32.0); CREATININE 0.7 mg/dL (0.55-1.02); Calcium 8.8 mg/dL (8.5-10.1); Chloride 102 mmol/L (98-107); Ferritin 46 ng/mL (8-252); Glucose 91 mg/dL (74-106); Potassium 3.2 mmol/L (3.5-5.1); Sodium 142 mmol/L (136-145); TSH 2.88 uIU/mL (0.36-3.74); Total Protein 7.1 g/dL (6.4-8.2)
== END 2021-10-09 01:50 | disposition home or self-care (01) ==
LOC: LBO 01:49
PROVIDERS: PCP Nurse Practitioner Family; Visit Provider Naturopath
DX: R53.83 Other fatigue (principal); E87.8 Other disorders of electrolyte and fluid balance, not elsewhere classified
CPT/HCPCS: 36415; 80053; 82728; 83540; 83550; 83735; 84443

== ENCOUNTER → 2022-03-10 01:41 | Outpatient (CLI) | payer MEDICAID, SELFPAY ==
--- NOTE | 2022-03-10 09:00 | DI.MAMMO_ITS ---
Exam(s) MAMMO SCREENING EXAM: MAMMO SCREENING CLINICAL HISTORY: SCREENING, Z12.39. TECHNIQUE: Bilateral full field digital CC and MLO mammographic images were obtained with 3D tomosyn thesis and utilizing computer aided detection (CAD). COMPARISON: Prior mammograms were reviewed, the most recent being 02/27/2021 and prior ultrasound ex aminations were reviewed, most recent being 09/29/2021. FINDINGS: There are no CAD designations. There are no new spiculated masses nor malignant appearing microcalcification groups. Previously present density anteriorly in the right breast has resolved, as has the previously present finding on ultrasound examination, as per the most recent ultrasound examination of 09/02/2021. The re are no new masses appearing microcalcification breast. There is no significant architectural distortion nor skin thickening-retraction. IMPRESSION: No radiographic evidence of malignancy. BI-RADS Category 1 - Negative Breast Density - Category B - Scattered areas of fibroglandular density Breast density Category C or D implies that the patient has dense breast tissue. Dense breast tissue can make it harder to find cancer on a mammogram. Dense breast tissue is also associated with an incr eased risk of breast cancer. This information about the result of the mammogram report was provided to the patient to raise their awareness. Use this report when you speak with the patient about their risks for breast cancer, which includes their family history. At that time, you may recommend additional screening tests (Ultrasoun d or MRI) as these tests may add significant information. A negative radiographic report should not delay biopsy if a dominant or clinically suspicious mass is present. Up to ten percent of cancers are not identified on mammography. A negative report may reinforce clinical impression. Adenosis and dense breasts may obscure an underlying neoplasm. False positive reports average 6 to 10%. Patient will receive a letter notifying them of these results.
== END ==
PROVIDERS: PCP Nurse Practitioner Family; Visit Provider Nurse Practitioner Family
DX: Z12.31 Encounter for screening mammogram for malignant neoplasm of breast (principal)
CPT/HCPCS: 77063; 77067

== ENCOUNTER 2023-04-08 11:43 | Outpatient (REF) | payer MEDICAID, SELFPAY ==
[2023-04-08 16:25] LABS: HCT 41.6 % (36.0-46.0); HGB 14.3 g/dL (11.2-15.7); MCH 30.6 pg (27.0-33.0); MCHC 34.4 % (32.0-36.0); MCV 89 fL (80-95); MPV 11.2 fL (8.0-11.0); Platelet Count 297 10^3/uL (130-400); RBC 4.67 10^6/uL (3.93-5.22); RDW 14.1 % (11.7-14.6); RDW-SD 45.5 fL; WBC 4.84 10^3/uL (4.4-10.8)
[2023-04-08 16:39] LABS: ALT 40 U/L (14-59); AST 29 U/L (15-37); Albumin 3.9 g/dL (3.4-5.0); Alkaline Phosphatase 95 U/L (46-116); Anion Gap 8.8 mmol/L (3-11); BUN 18 mg/dL (7-18); Bilirubin, Total 0.5 mg/dL (0.2-1.0); CO2 31.2 mmol/L (21.0-32.0); CREATININE 0.8 mg/dL (0.55-1.02); Calcium 9.3 mg/dL (8.5-10.1); Calculated LDL 153 mg/dL (<100); Chloride 102 mmol/L (98-107); Cholesterol 228 mg/dL (<200); Estimated GFR 90.83 (mL/min/1.73m2); Glucose 94 mg/dL (74-106); HDL Cholesterol 53 mg/dL (40-60); Potassium 3.1 mmol/L (3.5-5.1); Sodium 142 mmol/L (136-145); Triglyceride 111 mg/dL (<150)
[2023-04-09 10:57] LABS: Lyme Ab w Rflx to Lyme Confirm Negative (Negative)
[2023-04-10 21:33] LABS: Anaplasma phagocytophilum Negative (Negative); B. miyamotoi PCR Negative (Negative); Babesia divergens/MO-1 Negative (Negative); Babesia duncani Negative (Negative); Babesia microti Negative (Negative); Ehrlichia chaffeensis Negative (Negative); Ehrlichia ewingii/canis Negative (Negative); Ehrlichia muris eauclairensis Negative (Negative)
== END 2023-04-08 11:44 | disposition home or self-care (01) ==
LOC: NCHCN 11:43
PROVIDERS: PCP Orthopaedic Surgery Sports Medicine; Visit Provider Physician Assistant
DX: I10 Essential (primary) hypertension (principal); A93.8 Other specified arthropod-borne viral fevers
CPT/HCPCS: 80053; 80061; 85027; 87798; 86618

== ENCOUNTER 2023-06-03 16:29 | Outpatient (REF) | payer MEDICAID, SELFPAY ==
[2023-06-03 19:49] LABS: Anion Gap 11.2 mmol/L (3-11); BUN 19 mg/dL (7-18); CO2 26.8 mmol/L (21.0-32.0); Calcium 9.5 mg/dL (8.5-10.1); Chloride 102 mmol/L (98-107); Glucose 111 mg/dL (74-106); Sodium 140 mmol/L (136-145)
[2023-06-03 19:53] LABS: Estimated GFR 69.49 (mL/min/1.73m2)
[2023-06-03 20:05] LABS: Potassium 2.8 mmol/L (3.5-5.1)
== END 2023-06-03 16:30 | disposition home or self-care (01) ==
LOC: NCHCN 16:29
PROVIDERS: PCP Physician Assistant; Visit Provider Internal Medicine Gastroenterology
DX: E87.6 Hypokalemia (principal)
CPT/HCPCS: 80048

== ENCOUNTER 2023-06-08 15:06 | Outpatient (REF) | payer MEDICAID, SELFPAY ==
[2023-06-08 16:26] LABS: Anion Gap 11.9 mmol/L (3-11); BUN 17 mg/dL (7-18); CO2 23.1 mmol/L (21.0-32.0); CREATININE 0.9 mg/dL (0.55-1.02); Calcium 9.3 mg/dL (8.5-10.1); Chloride 105 mmol/L (98-107); Estimated GFR 78.86 (mL/min/1.73m2); Glucose 109 mg/dL (74-106); Magnesium 2.2 mg/dL (1.8-2.4); Potassium 3.7 mmol/L (3.5-5.1); Sodium 140 mmol/L (136-145)
== END 2023-06-08 15:07 | disposition home or self-care (01) ==
LOC: NCHCN 15:06
PROVIDERS: PCP Physician Assistant; Visit Provider Physician Assistant
DX: Z00.00 Encounter for general adult medical examination without abnormal findings (principal)
CPT/HCPCS: 80048; 83735

== ENCOUNTER 2023-06-26 06:09 | Day surgery (SDC) | payer MEDICAID, SELFPAY ==
--- NOTE | 2023-06-25 16:29 | HPE_ITS ---
Date of service: 06/25/23 Time of Service: 16:29 Assessment and Plan Assessment and plan (1) GERD (gastroesophageal reflux disease): Status: Chronic (2) Fibromyalgia: Status: Acute (3) Hypertension: (4) Allergic rhinitis: (5) Migraine headache: (6) Lyme disease: (7) Colon cancer screening: Status: Acute Assessment and plan: Plan: Colonoscopy & EGD w/ general & natural airway. Informed consent is obtained for the procedural (explained in simple layman's terms that?the pt and/or family could understand) explaining risks vs benefits and alternatives to the procedure and consequences if we do not do the procedure and need/rational for the procedure. Risks include but are not limited to: bleeding, infection, perforation of colon.? This would necessitate emergency surgery to repair the damage w/ possible ostomy; and other associated complications w/ the required surgery. ? Also complications of anesthesia including aspiration, CA/CVA/, inability to complete the procedure. I discussed with the?patient would they could expect during the procedure, post procedure and recovery time and risks.? The patient understands that they need to have a ride home after the procedure.? The patient was given all this information in writing and expressed understanding. If there are any questions or concerns please feel free to contact our office.? Generally Colonoscopy does not require antibiotics prophylaxis, History of Present Illness Narrative: Today 06/26/23 Patient is here today for colonoscopy for CRC acreening and EGD for GERD.??? They completed a bowel prep with just a clear yellow residual effluent.? They not having any chest pain or shortness of breath, currently.? They are not experiencing any fever or chills.? They deny any productive cough or upper respiratory tract infection signs or symptoms.? They are not having abdominal pain, or nausea and vomiting.? They have not had any changes in medications, past medical history or past surgical history since previously being seen in the office. They have not had any accidents or have been in the ER since the clinic pre-operative evaluation. ??I reviewed the procedure with the patient today, including risks and benefits of the procedure, and what they could expect at home for recovery.? All questions are answered to the patient?s satisfaction today, and they are stable to proceed with the proposed procedure. clinic visit 05/13 Certainly, Barbi's symptoms seems consistent with gastroesophageal reflux disease. I do think she would benefit from EGD to help rule out hiatal hernia, H. pylori, or other pathology that may result in the symptoms. She is also at an appropriate age to undergo screening colonoscopy. We talked about the risks and benefits of both of the procedures, especially as they relate to overall health care, as well as routine health maintenance. I think she has a good understanding of the procedures, and I see no contraindications to proceeding as planned. Is very nice to meet Barbi in the office today. She is referred here for gastroesophageal reflux disease, and my opinion regarding EGD and colonoscopy. By way of some history, she is 47 years old, and she has been experiencing dyspepsia, as well as sharp and gnawing pain mostly in mid thoracic region, but slightly to the left upper quadrant as well. She tells me it associated with basically every meal. Coffee in particular does seem to make it worse, as well as some potassium supplementation that she takes. Raymond crackers seem to help relieve some of the symptoms. She has had some mild improvement with the addition of a medication prescribed by her natural science curator. She does not know the name of that. She denies alcohol use or tobacco smoking. She denies a family history of esophageal cancers. With regards to her colorectal history, she denies melena, hematochezia, or unanticipated weight loss. She denies a family history of colon cancer. Review of Systems All systems reviewed & are unremarkable except as noted in HPI and below PFSH All Active Problems Screening for malignant neoplasm of colon performed (Acute) Colon cancer screening (Acute) GERD (gastroesophageal reflux disease) (Chronic) Fibromyalgia (Acute) Contusion of elbow (Acute) Medical History Aftercare following right shoulder joint replacement surgery Hypertension Allergic rhinitis Neck pain Migraine headache Nephrolithiasis Lumbar radiculitis Lyme disease Abnormal EKG Mitral insufficiency Arthralgia Positive antinuclear antibody Hip pain Fibromyalgia Hot flashes, menopausal Depression Hx of fracture of finger RRF Surgical History H/O: section H/O right wrist surgery Social History (Reviewed 06/25/23 @ 16:33 by LASHAE Mendoza Smoking/Tobacco Use Status: Never Smoking risk assessment performed?: Yes Alcohol Intake: current Alcohol Intake frequency: holidays/special occasions only Details: Not since taking gabapentin Drug use: Daily Substance use type: marijuana Household members: spouse and children Housing: house Number of Children: 3 current occupation: Not Employed Current gender identity: female What type of physical activity do you participate in: walking and independent ambulation Seatbelt use: always Do you feel safe at home: Yes Do you feel safe in your relationship?: Yes Meds Allergies and Home Medications Allergies Allergy/AdvReac Type Severity Reaction Status Date / Time amoxicillin Allergy Mild Verified 06/26/23 06:31 sulfamethoxazole Allergy Mild Verified 06/26/23 06:31 [From Bactrim] trimethoprim [From Bactrim] Allergy Mild Verified 06/26/23 06:31 Milk Containing Products Allergy Unknown Verified 06/26/23 06:31 (Dairy) adhesive Allergy rash/bliste Verified 06/26/23 06:31 rs Penicillins Allergy Hives Verified 06/26/23 06:31 eggplant Allergy Skin Rash Uncoded 06/26/23 06:31 peppers Allergy Skin Rash Uncoded 06/26/23 06:31 potatoes Allergy Skin Rash Uncoded 06/26/23 06:31 tomatoes Allergy Skin Rash Uncoded 06/26/23 06:31 Home Medications Medication Instructions Recorded Confirmed Type amiloride 5 mg tablet 5 mg PO DAILY 03/20/14 06/26/23 History sumatriptan succinate 100 mg tablet 100 mg PO PRN PRN 01/05/15 06/26/23 History magnesium oxide 800 mg (2 x 400 mg magnesium) PO 10/06/15 06/26/23 Rx DAILY #90 caps potassium chloride 10 mEq 20 meq (2 x 10 mEq) PO DAILY ##90 10/06/15 06/26/23 Rx tablet,extended release(part/cryst) (Klor-Con M) cholecalciferol (vitamin D3) 25 25 mcg PO DAILY 10/29/20 06/26/23 History mcg (1,000 unit) capsule hydrochlorothiazide 25 mg tablet 25 mg PO BID 10/29/20 06/26/23 History ibuprofen 800 mg tablet 800 mg PO TID PRN 10/29/20 06/26/23 History duloxetine 60 mg capsule,delayed 60 mg PO DAILY 11/07/20 06/26/23 History release potassium citrate 10 mEq (1,080 2,160 mg PO BID 01/17/21 05/13/23 History mg) tablet,extended release Naltrexone 6 mg PO DAILY 06/11/21 06/26/23 History buspirone 10 mg tablet 10 mg PO BID 05/13/23 06/26/23 History pregabalin 150 mg capsule (Lyrica) 150 mg PO BID 05/13/23 06/26/23 History Exam Const Other: PHYSICAL EXAM GENERAL APPEARANCE: Alert, healthy appearance, oriented, x 3,? in no acute distress HYDRATION: Well hydrated HEAD, EYES, EARS, NECK, THROAT: Head is normocephalic, pupils equal, round, kim ctive to light and accommodation, ocular movement intact, sclera clear and no jaundice. ?Dentition intact. No sore throat.? LUNGS: normal respiration/normal chest excursion. ?Clear to auscultation b ilaterally. ?No wheeze. ?HEART: Regular rate and rhythm. no murmurs ABDOMEN: soft and non-tender to palpation.? Normal bowel sounds.? Time Spent Time spent with Patient: <40 minutes Time was spent: preparing to see the patient(eg.review tests), obtaining and/or reviewing separately otained hiistory, ordering medications,tests, procedures, referring, communicating with other health administrator health care facility, indepentently interpreting results, counseling the patient and care coordination
--- NOTE | 2023-06-25 22:03 | PDOC.DSDIS_ITS ---
Date of service: 06/26/23 Time of Service: 08:30 Discharge Plan Disposition Patient Disposition: Home Condition: Good Discharge Details Reason For Visit: Stomach and colon scope Attending Provider: Vilma Praasd Primary Care Provider: Aníbal Christopher Home Meds and New Rx's Prescriptions: New pantoprazole [Protonix] 40 mg tablet,delayed release (DR/EC) 40 mg PO DAILY Qty: 30 12RF Continued pregabalin [Lyrica] 150 mg capsule 150 mg PO BID buspirone 10 mg tablet 10 mg PO BID hydrochlorothiazide 25 mg Tablet 25 mg PO BID ibuprofen 800 mg Tablet 800 mg PO TID PRN cholecalciferol (vitamin D3) 25 mcg (1,000 unit) Capsule 25 mcg PO DAILY duloxetine 60 mg capsule,delayed release(DR/EC) 60 mg PO DAILY potassium citrate 10 mEq (1,080 mg) tablet extended release 2,160 mg PO BID Naltrexone tablet 6 mg PO DAILY amiloride 5 MG tablet 5 mg PO DAILY sumatriptan succinate 100 MG tablet 100 mg PO PRN PRN potassium chloride [Klor-Con M10] 10 MEQ tablet,ER particles/crystals 20 meq PO DAILY Qty: 90 0RF magnesium oxide 400 MG capsule 800 mg PO DAILY Qty: 90 0RF Discontinued bisacodyl [Dulcolax (bisacodyl)] 5 mg tablet,delayed release (DR/EC) 5 mg PO ONCE Qty: 4 0RF polyethylene glycol 3350 17 gram/dose powder 17 g PO DAILY Qty: 238 0RF Discharge Instructions Additional Instructions: [facility] Colonoscopy Post- Op Instructions Instructions for Everyone who is given Anesthesia: For your safety, please do the following for the next twenty-four (24) hours: *Do Not operate a motor vehicle (car, truck, motorcycle, etc.) *Do Not drink alcoholic beverages or use any recreational drugs for the first 24 hours or while taking pain medications. The medications in your body may have a reaction that can be dangerous. *Do Not make any important decisions or sign any important papers. Findings: GERD Continue with lifestyle modifications: no alcohol, tobacco products, Aspirin or NSAID's (ibuprofen, Motrin, Naprosyn, aleve, etc), soda pop/any carbonated beverages, caffeine (including tea & chocolate), and acidic foods, (tomatoes, citrus, onions, peppermints) spicy or fried/fatty foods. Do not lie down for 30 minutes after eating, and do not eat 2 hours prior to bedtime. Avoid wearing tight fitting clothing/ belts diverticula-make sure you are moving your bowels on a regular basis and not straining to go to the bathroom. If you are find you are having issues with constipation or straining then it is recommended you start a fiber product product daily such as Metamucil Follow up: Repeat colonoscopy in 10 years time 1. No lifting over 20 pounds or strenuous activity for the first 24 hours after your procedure. After 24 hours there are no restrictions on your activity but you may feel fatigued for a few days. 2. After you arrive home you may have a light meal and return to your normal diet as you can tolerate it without feeling sick to your stomach. 3. You may have a bloated, gaseous feeling in your belly (abdomen) after a colonoscopy. Passing gas and belching will help. Walking or lying down on your left side with your knees flexed may relieve the discomfort. Call the office at [phone] (Office) or [phone] (Hospital) right away if you notice any of the following: a.Vomiting of blood or ?coffee ground stools?. b.Rectal bleeding 1Tbsp, blood clots or continuous bleeding. c.Severe belly (abdominal) pain. d.A hard distended belly (abdomen) and an inability to pass gas. 4. Please don?t expect to have a normal BM (bowel movement) for 2-3 days after your procedure. 5. If there are questions regarding the findings of your procedure, please contact your doctor 6. If you are unable to contact your doctor with a problem, contact the hospital at [phone]. 7. Continue all your regular medications unless directed otherwise. I understand the above instructions and have no questions. Signature of Patient or Adult Escort Name of Responsible Adult Escort Signature of Nurse Date/Time DIVERTICULAR DISEASE OVERVIEW???A diverticulum is a pouch-like structure that can form through points of weakness in the muscular wall of the colon (ie, at points where blood vessels pass through the wall). Diverticulosis affects men and women equally. The risk of diverticular disease increases with age. It occurs throughout the world but is seen more commonly in developed countries. WHAT IS DIVERTICULAR DISEASE? Diverticulosis???Diverticulosis merely describes the presence of diverticula. Diverticulosis is often found during a test done for other reasons, such as flexible sigmoidoscopy, colonoscopy, or barium enema. Most people with diverticulosis have no symptoms and will remain symptom free for the rest of their lives. A person with diverticulosis may have diverticulitis, or diverticular bleeding. Diverticulitis???Inflammation of a diverticulum (diverticulitis) occurs when there is thinning and breakdown of the diverticular wall. This may be caused by increased pressure within the colon or by hardened particles of stool, which can become lodged within the diverticulum. The symptoms of diverticulitis depend upon the degree of inflammation present. The most common symptom is pain in the left lower abdomen. Other symptoms can include nausea and vomiting, constipation, diarrhea, and urinary symptoms such as pain or burning when urinating or the frequent need to urinate. Diverticulitis is divided into simple and complicated forms. ?Simple diverticulitis, which accounts for 75 percent of cases, is not associated with complications and typically responds to medical treatment without surgery. ?Complicated diverticulitis occurs in 25 percent of cases and usually requires surgery. Complications associated with diverticulitis can include the following: ?Abscess ? a localized collection of pus ?Fistula ? an abnormal tract between two areas that are not normally connected (eg, bowel and bladder) ?Obstruction ? a blockage of the colon ?Peritonitis ? infection involving the space around the abdominal organ ?Sepsis ? overwhelming body-wide infection that can lead to failure of multiple organs Diverticular bleeding???Diverticular bleeding occurs when a small artery located within a diverticulum is eroded and bleeds into the colon. Diverticular bleeding usually causes painless bleeding from the rectum. In approximately 50 percent of cases, the person will see maroon or bright red bloo d with bowel movements. Is bleeding with a bowel movement normal?It is not normal to see blood in a bowel movement; this can be a sign of several conditions, most of which are not serious (eg, hemorrhoids) but some of which are serious and require immediate treatment. Anyone who sees blood after a bowel movement should consult with their healthcare provider to determine if further testing or evaluation is needed. DIVERTICULOSIS AND DIVERTICULITIS DIAGNOSIS???Diverticulosis is often found during tests performed for other reasons. ?Barium?enema ? This is an x-ray study that uses barium in an enema to view the outline of the lower intestinal tract. This is an older test and has been largely replaced by computed tomography (CT) scan. ?Flexible sigmoidoscopy ? This is an examination of the inside of the sigmoid colon with a thin, flexible tube that contains a camera. ?Colonoscopy ? This is an examination of the inside of the entire colon. ?CT scan ? A CT scan is often used to diagnose diverticulitis and its complications. If diverticulitis (not just diverticulosis) is suspected, the above three tests should not be used because of the risk of perforation. TREATMENT Diverticulosis???People with diverticulosis who do not have symptoms do not require treatment. However, most clinicians recommend increasing fiber in the diet, which can help to bulk the stools and possibly prevent the development of new diverticula, diverticulitis, or diverticular bleeding. Fiber is not proven to prevent these conditions in all patients but may help to control recurrent episodes in some. Increase fiber???Fruits and vegetables are a good source of fiber.? Fiber content of packaged foods can be calculated by reading the nutrition label. Seeds and nuts???Patients with diverticular disease have historically been advised to avoid whole pieces of fiber (such as seeds, corn, and nuts) because of concern that these foods could cause an episode of diverticulitis. However, this belief is completely unproven. We do not suggest that patients with diverticulosis avoid seeds, corn, or nuts. Diverticulitis???Treatment of diverticulitis depends upon how severe your symptoms are. Home treatment???If you have mild symptoms of diverticulitis (mild abdominal pain, usually left lower abdomen), you can be treated at home with a clear liquid diet and oral antibiotics. However, if you develop one or more of the following signs or symptoms, you should seek immediate medical attention: ?Temperature >100.1?F (38?C) ?Worsening or severe abdominal pain ?An inability to tolerate fluids Hospital treatment???If you have moderate to severe symptoms, you may be hospitalized for treatment. During this time, you are not allowed to eat or drink; antibiotics and fluids are given into a vein. If you develop an abscess of the colon, you may require drainage of the abscess (usually performed by placing a drainage tube across the abdominal wall) or by surgically opening the affected area. Surgery???If you develop a generalized infection in the abdomen (peritonitis), you will usually require an emergency operation. A two-part operation may be necessary in some cases. ?The first operation involves removal of the diseased colon and creation of a colostomy. A colostomy is an opening between the colon and the skin, where a bag is attached to collect waste from the intestine. The lower end of the colon is temporarily sewed closed to allow it to heal. ?Approximately three to six months later, a second operation is performed to reconnect the two parts of the colon and close the opening in the skin. You are then able to empty your bowels through the rectum. Sometimes patients require up to a year to recover from the first operation, depending on how sick they were. In non-emergency situations, the diseased area of the colon can be removed and the two ends of the colon can be reconnected in one operation, without the need for a colostomy. Surgery versus medical therapy???An operation to remove the diseased area of the colon may be necessary if you do not improve with medical therapy. After an episode of uncomplicated diverticulitis, elective surgery is generally not required as the risk of another attack or requiring emergency surgery is low. However, patients with persistent symptoms attributable to diverticulitis, a history of complicated diverticulitis, or a compromised immune system should be evaluated for possible surgery to prevent another attack. In such patients, another attack has been associated with a higher risk of complications or . Of course, the decision will also depend in part upon your other medical c onditions and ability to undergo surgery. In many cases, an elective operation can be performed laparoscopically, using small incisions, rather than the typical vertical (up and down) abdominal incisi on. Laparoscopic surgery usually allows you to recover more quickly and shortens the hospital stay. After diverticulitis resolves???After an episode of diverticulitis resolves, if you have not had a recent colonoscopy, the entire length of the colon should be evaluated to determine the extent of disease and to rule out the presence of abnormal lesions such as polyps or cancer. Recommended tests include colonoscopy, barium enema and sigmoidoscopy, or CT colonography. Diverticular bleeding???Most cases of diverticular bleeding resolve on their ow n. However, some people will need further testing or treatment to stop bleeding, which may include a colonoscopy, angiography (a treatment that blocks off the bleeding artery), bleeding scan, or surgery. DIVERTICULAR DISEASE PROGNOSIS Diverticulosis???Over time, diverticulosis may cause no problems or it may cause episodes of bleeding and/or diverticulitis. Approximately 15 to 25 percent of people with diverticulosis will develop diverticulitis, while 5 to 15 percent will develop diverticular bleeding. Diverticulitis???Approximately 85 percent of people with uncomplicated diverticulitis will respond to medical treatment, while approximately 15 percent of patients will need an operation. After successful treatment for a first attack of diverticulitis, one-third of patients will remain asymptomatic, one- third will have episodic cramps without diverticulitis, and one-third will go on to have a second attack of diverticulitis. The prognosis tends to remain similar following a second attack of diverticulitis. Only 10 percent of people remain symptom-free after a second attack. Subsequent attacks tend to be of similar severity, not increasing in severity as previously believed. High Fiber Diet What is Dietary Fiber? All fiber comes from plants, bushes, tari or trees.? Of course, the ones that we eat provide us with fruits, vegetables and grains.? There are many different types of fiber but the three that are most important to the health of the body are: Insoluble Fiber This fiber does not dissolve in water, nor is it fermented by the bacteria residing in the colon.? Rather, it retains water and in so doing, helps to promote a larger, bulkier and more regular bowel activity.? This, in turn, may be important in preventing disorder such as diverticulosis and hemorrhoids, and in sweeping out certain toxins and cancer causing carcinogens.? Sources of insoluble fiber are: ? whole grain wheat and other whole grains ? corn bran, including popcorn, unflavored and unsweetened ? nuts and seeds ? potatoes and the skins from most fruits from trees such as apples, bananas and avocados ? many green vegetables such as green beans, zucchini, celery and cauliflower ? some fruit plants such as tomatoes and kiwi Soluble Fiber These fibers are fermented or used by the colon bacteria as a food source or nourishment.? When these good bacteria grow and thrive, many health benefits occur in both the colon and the body.? Soluble fiber is present in some degree in most edible plant foods, but the ones with the most soluble fiber include: ? legumes such as peas and most beans, including soybeans ? oats, rye and barley ? many fruits such as berries, plums, apples bananas and pears ? certain vegetables such as broccoli and carrots ? most root vegetables ? psyllium husk supplement products Benefits of a High Fiber Diet The health benefits of a high fiber diet, consumed on a regular basis and reaching recommended amounts (below), are now fairly well-defined. There are some additional benefits in the early research stage with the prebiotic soluble fibers. What is now known regarding a high fiber diet include: Bowel Regularity A high fiber diet promotes regularity with a softer, bulkier and regular stool pattern. This decreases the chance of hemorrhoids, diverticulosis and perhaps colon cancer. Cholesterol and Reduced Triglycerides The soluble fibers are the ones that will reduce cholesterol levels when used on a regular basis. Psyllium husk and prebiotic soluble fiber will also reduce cholesterol. They may also reduce the incidence of coronary heart disease. Oats, flax seeds and legumes or beans are the recommended fibers. Colon Polyps and Cancer It is still not certain if a high fiber diet helps prevent colon cancer. Considerable research suggests that this may occur. Certainly it makes sense to increase regularity and so speed the movement of cancer causing carcinogens through the bowel. In addition, reducing a heavy meat diet reduces the bile flow from the liver in a favorable way. This, too, reduces the amount of carcinogens that reach and are manufactured in the colon. Finally, a high fiber diet, including prebiotic soluble fiber, increases the integrity and health of the wall of the colon. The risk of cancer may be reduced. Colon Wall Integrity A high fiber diet changes the bacterial makeup of the colon toward a more favorable balance. For instance, it is known that those people with obesity, diabetes type 2 and inflammatory bowel disease have a predominance of bad bacteria in the colon. This, in turn, may render the bowel wall weak and allow b acteria and, indeed, even toxins to seep through. A high fiber diet with a modest reduction in animal and meat products may return the bacterial makeup to a more positive balance. This, in particular, has been seen when the soluble fiber prebiotics are added to the diet. Blood Sugar Soluble fiber such as in legumes (beans), oats and in prebiotic fibers slows the absorption of blood sugar and so helps regulate the sugar in the blood. Insoluble fiber on a regular basis is associated with reduced risk of type 2 diabetes. Weight Loss High fiber diets are more filling and give a sense of fullness sooner than an animal and meat based diet does. In addition, the soluble prebiotic fibers have been shown to turn off the hunger hormones produced in the wall of the gut and to increase the hormones that give a sense of fullness. Those hormones are made in the wall of the gut. New medical research has shown that the bacterial makeup in the colon in overweight people is abnormal to the extent that they manufacture and absorb almost twice the number of calories through the colon wall as do normals. Prebiotic fibers (below) will help change this hormonal balancein a favorable way. Bacteria and the Function of the Colon The colon finishes the digestive process. Hopefully, the waste products move through in a nice regular manner. Insoluble fibers help this process by retaining water and so producing a bulkier, softer stool, which is easy to pass. The additional role of the colon is to provide a home for an enormous number of micro-organisms, mostly bacteria. Recent research has shown that there are over 1,000 species of bacteria with a total bacterial count ten times the number of cells in the body. These bacteria play a major role in keeping the colon wall itself healthy. In addition, these good bacteria produce a very strong immune system for the body. They significantly increase calcium absorption and bone density. They provide other documented benefits. It is the soluble fibers in the diet that are so effective in stimulating the growth of good colon bacteria. How Much is Enough? The amount of fiber in food is measured in grams.? National nutritional authorities recommend the following amounts of dietary fiber daily. Under Age 50? Over Age 50 Men? 38 grams? 30 grams Women??? 25 grams? 21 grams For a week or so, it is best to tally the amount of fiber you are consuming.? Boxed and packaged foods will have the amount of fiber per serving on the nutrition label. Which Fibers and Which Foods are Best? As noted, healthy fiber is only found in plants. The three major categories are whole grains, fruits and vegetables. Whole Grains Wheat, oats, barley, wild or brown rice, amaranth, buckwheat, bulgur, corn, millet, quinoa, rye, sorghum, teff and triticals. By far, wheat, oats and wild or brown rice are most common. Always buy whole grain products. White bread, baked goods and rolls almost always are made from wheat flour. Wheat flour is white because most of the fiber, vitamins and other nutrients have been removed. Try not buy enriched grains. What this means is that simple white flour has had vitamins added to it by the account financial manager. The word, enriched, implies a good and healthy product. On the contrary, enriched means that most of the fiber has been removed and a few vitamins added. Fruits Fruits come from trees such as apple and pear or from bushes or tari. You should eat a wide variety of fruits, preferably with every meal. In many cases, the skin of a fruit such as apple will contain much of the insoluble fiber while the pulp contains most of the soluble fiber. To the extent possible, buy organic fruits as these will have little or no pesticides. Always wash fruit. Vegetables Eat a wide variety of vegetables. They should be a mainstay of lunch and dinners. Frozen vegetables retain as much nutrition and fiber as fresh vegetables. As with fruit, try to buy organic to reduce any residual pesticide ingestion. Wash fresh vegetables thoroughly. Cruciferous vegetables such as broccoli, [place] sprouts and cauliflower contain certain chemicals such as sulforaphane. This substance has very strong anti-cancer properties and should be eaten frequently. Legumes, Beans, Peas and Soybeans These vegetables have plenty of soluble fiber and should be part of a varied vegetable intake. Beans, in particular, contain a certain type of fiber that may lead to harmless gas or bloating. Nuts and Seeds These are rich sources of fiber and are a good substitute for sweets such as candies and baked sweet goods. While nuts and seeds are rich in fiber, they also contain vegetable fat and so can and do add calories. Read the Labels As noted, fresh and frozen foods are usually better.? They have good nutrition and few, if any, chemicals added to them.? When buying packaged foods and, in particular grains, look for three things: ? The first word on the label should be whole, such as whole wheat or whole grain. ? Check out the calories and the amount of fiber in a serving. ? How many and what other additives or chemicals are added.? Fewer is always better.? Do you know what each additive does?? Some are added not for the benefit of the strategic buyer but rather for manufacturers.? These could and do include sugar, artificial flavor, chemicals to prevent oxidation and spoilage, emulsifiers to blend the product.? You have to be a wealth management consultant. Fiber Facts, Nuggets and Pearls ? For breakfast you can easily get the day started well by using a high fiber, whole grain cereal.? Check the labels.? Add fruit such as blueberries and bananas.? If you are an egg eater, use whole wheat or grain toast.? Adding wheat germ gives you a good fiber kick. ? Always use whole grain or wheat with rolls and sandwiches.? Does your fast food store not have them?? Perhaps you look elsewhere.? Eating an occasional black johnson or veggie burger provides variety. ? Snacks should consist of fruit and/or nuts.? While nuts are loaded with fiber, they are an energy rich food, meaning they have a lot of calories in a small packet. ? Fruit juices should contain pulp.? Clear juices such as clear orange, pear or apple juice contain little fiber and have a lot of fructose.? Prune juice is usually high in fiber. ? Homemade soups ? adding fresh or frozen vegetables to a chicken or vegetable stock is a good way to start homemade soup. ? Salads ? adding cooked and then chilled vegetables provide great flavoring to almost any salad.? Remember, a villarreal salad has lots of cooked corn in it.? Small slices of apples or oranges and nuts such as chopped walnuts or sliced almonds always adds taste, variety and fiber to almost any salad. ? Fruit ? Try to eat fruit of some type with almost every meal. ? Rethink how you place the various foods on your dinner plate.? Reducing the portions of the meat or animal food portion to the side with equal or more portions of vegetables, legumes and fruits portion always allows for more fiber.? There was never anything magic about making the meat or animal food portion the main part of the dinner plate.? Eating from smaller plates can, over time, trick your mind and intermediate manager habit of using a dinner plate.? Again, there is nothing magic in an 11, 12, or 13 inch dinner plate. Fiber Supplements There are a variety of fiber supplements available on the food or pharmacy shelves. Psyllium This soluble plant fiber has been used in [place] for over 2,000 years. It is a soluble fiber with mucilage in it. This acts to retain a lot of water and also is fermented by colon bacteria. When 7 grams a day are used, it does lower cholesterol. Metamucil in various forms is psyllium. Methyl Cellulose All the cellulose products come from finely ground wood chips which are then treated in a variety of ways such as boiling in acids. Methyl cellulose is an insoluble fiber which does dissolve in water. It is also an emulsifier, meaning it blends oils and water. Citrucel is methyl cellulose (MC). MC may not be appropriate for Crohn?s disease or ulcerative colitis as several medical studies have shown that certain emulsifiers dissolve the mucous lining of the colon in animals prone to Crohn?s disease. This then allows bacteria to invade the underlying tissue. Fiber and Gas Everyone has intestinal gas and that is a good thing.? It means that bacteria, hopefully the good ones, are thriving.? The normal amount of flatus passed each day depends on sex and what is eaten.? The normal number of flatus is 10-20 times a day.? When the bacteria that make intestinal gases are growing, it also means that other good bacteria are using the same fibers to grow and produce multiple health benefits, including the production of healthy short-chain fatty acids.? These substances are produced quietly in the colon and produce many health-related outcomes. Soluble fiber should always be used in a gradual manner.? If too much is consumed at any one time, then excess, but harmless, intestinal gas can occur.? People with irritable bowel syndrome are particularly prone to bloating and mild cramping.? In this instance, soluble fiber in the diet or supplement should be used in small doses and increased gradually. Finally, prebiotic fibers tend to cause the production of short-chain fatty acids which acidify the colon.? This, in turn, reduces or stops the growth of bacteria that make the smelly hydrogen sulfide gases that produce noxious flatus.? People who consume many vegetables with prebiotics or take a prebiotic fiber supplement often have non-odoriferous flatus. Fiber and Irritable Bowel Syndrome Irritable bowel syndrome (IBS) is one of the most common disorders of the lower digestive tract.? The symptoms of IBS can be quite varied.? They can be a mix of several symptoms such as constipation, diarrhea, crampy abdominal discomfort, bloating and gas.? An attack of IBS can be triggered by emotional tension and anxiety, poor dietary habits and certain medications.? It is now known that infections in the intestine can lead to long-term IBS symptoms.? Increased amounts of fiber in the diet can help relieve the symptoms of irritable bowel syndrome by producing soft, bulky stools.? This helps to normalize the time it takes for the stool to pass through the colon.? Recent medical research with newer techniques has shown some surprising and dramatic findings for IBS patients.? Specifically, there is a very significant and abnormal shift of bacteria from those that provide health benefits to those bad bacteria that we really do not want in the gut.? The technical name for this bad group of bacteria is called Firmicutes.? Along with this abnormal bacterial collection, there is a smoldering low-grade inflammation in the gut wall that may contribute to symptoms.? The goal for IBS patients should be to gradually increase the soluble dietary fibers in the diet so as to promote the growth of good bacteria and so suppress the bad ones along with the associated inflammation. IBS patients need to be careful of the amount of soluble fiber they consume.? The reason for this is that, while the good colon bacteria thrive on these fibers and produce health benefits, other gas-forming bacteria may generate excessive but harmless gas and subsequent bloating.? Thus, soluble plant fibers or a dietary prebiotic supplement should be taken in small initial doses and then gradually increased to tolerance. Fiber and Colon Polyps/Cancer Colon cancer is a major health problem. This disease is most common in Western cultures. It is not seen very often in rural cultures where the diet is mostly plant based. Usually, colon cancer starts out as a colon polyp, a benign mushroom-shaped growth. In time it grows, and in some people it becomes cancerous. Colon cancer is usually always curable if polyps are removed when found or if surgery is performed at an early stage. It is now known that people can inherit the risk of developing colon cancer, but diet is important, too. As noted, there is a very low rate of colon cancer in residents of countries where grains are unprocessed and retain their fiber. It seems that in the Western world, cancer-containing agents (carcinogens) remain in contact with the colon wall for a longer time and in higher concentrations. So, a large bulky stool may act to dilute these carcinogens by moving them through the bowel more quickly. Less carcinogenic exposure to the colon may mean fewer colon polyps and less cancer. A very current review of the entire world?s literature on the effect of fiber on colon polyps and cancer prevention has shown rather clearly that for every 10 grams of fiber added to the diet, there is a 10% reduction in incidence of colon cancer. So the recommended 30 gram fiber diet would result in a 30% less chance of getting these tumors. There are also substances produced in the colon by the good bacteria that seem to retard certain pre-cancer factors from developing. They are called short- chain fatty acids (SCFA). See above for description of SCFAs. A high fiber diet increases these substances. So, the combination of dietary fiber and the production of short-chain fatty acids have a clear health benefit. Fiber and Diverticulosis Prolonged, vigorous contraction of the colon over a long period of time may result in diverticulosis.? This increased pressure causes small and, eventually, larger ballooning pockets to form.? These pockets by themselves cause no problem.? However, sometimes they become infected (diverticulitis) or even break open (perforate) causing infection or inflammation within the abdomen (peritonitis).? A high fiber diet increases the bulk in the stool and thereby reduces the pressure within the colon.? By so doing, the formation of pockets may be reduced or possibly even stopped. In the past, many physicians were fearful that seeds as in tomatoes, nuts or berries were harmful and could get inside these pockets and rattle around, causing damage. We now know that this has never been the case and that these foods contain lots of fiber and are actually beneficial for diverticulosis patients. Certain bulking agents such as psyllium are traditional types of bulk producing supplements.? Psyllium is a soluble fiber.? Combining it with insoluble fiber as in wheat bran or corn bran (no gluten) can enhance this bulking effect even more.? A product containing a prebiotic, psyllium and wheat bran is probably a very good combination for bowel regularity. Prebiotin https://www.prebiotin.com/ Regularity/Diverticulosis is one such product. Starting a Fiber Supplement ?When consumed at recommended levels,?dietary fiber https://www.[facility] .org/healthy-lifestyle/ledofxngg-gkl-diackgt-eating/in-depth/fiber/art-68248092? mc_id=us&utm_source=newsnetwork&utm_medium=l&utm_content=content&utm_campaign=ak vibha&herbert=[facility]&placementsite=catawba&zeokb=530975 ?is widely recognized to have health benefits, including relief of?constipation https://www.[facility].org/diseases-conditions/constipation/symptom s-causes/syc-94627607?mc_id=us&utm_source=newsnetwork&utm_medium=l&utm_content=c ontent&utm_campaign=[facility]&herbert=[facility]&placementsite=catawba&zdmcd=47296 1 . Adult women 50 and younger should consume at least 25 grams of fiber a day. Women 51 and older should have at least 21 grams a day. Adult men need at least 38 grams of fiber a day if they are younger than 50 and at least 30 grams of fiber a day if they are 51 and older. Ninety percent of the [place] population consumes far below those recommendations, averaging only 15 grams of daily fiber. Fiber-rich foods include fruits, vegetables, whole grains and legumes. Many cereals, such as bran flakes, are good sources of fiber. Although fiber supplements can fill the daily fiber gap, they usually have only one type of fiber, rather than a variety of fibers and micronutrients, and they may not provide all the health benefits associated with fiber in food. Therefore, boost your fiber intake in your diet first by eating a wide variety of high-fiber foods. If you still can?t get enough fiber to meet the daily recommendation, consider using a supplement. Many fiber supplements can be used regularly intermediate manager. Fiber is classified as soluble or insoluble. Soluble fibers are more fermentable and may cause gas. Insoluble fibers move through the digestive system largely intact, and that can increase stool bulk. Most fiber supplements are exclusively soluble or insoluble fiber. For example, FiberCon (calcium polycarbophil) and Benefiber (wheat dextrin) are mainly soluble fiber. They tend to cause more bloating and flatulence. Citrucel (methylcellulose) is mainly insoluble fibers that are nonfermentable, so it?s less likely to contribute to bloating and gas. Psyllium husk (Metamucil and Konsyl) is rich in both soluble and insoluble fiber. Generally, fiber supplements with mainly insoluble fiber may be a better option for constipation. Before taking a fiber supplement, ask your health care provider or pharmacist to review your medications. Fiber supplements can decrease the absorption of certain medications, including drugs that treat thyroid disorders,?depression https://www.[facility].org/ diseases-conditions/depression/symptoms-causes/[facility]-[email or web address]?mc_id=us&utm_source= Run3Dnetwork&utm_medium=l&utm_content=content&utm_campaign=[facility]&herbert=[facility]&placementsite=catawba&ftyag=[id number] ,?diabetes https://www.[facility].org/diseases-conditions/diabetes/symptoms-causes/[facility] 1444?mc_id=us&utm_source=newsnetwork&utm_medium=l&utm_content=content&utm_ca mpaign=[facility]&herbert=[facility]&placementsite=catawba&ntvsf=402450 ,?high cholesterol https://www.[facility].org/diseases-conditions/btcf-ghrkb-nsdgeplxyxx/symptoms- causes/[facility]- [id number]?mc_id=us&utm_source=newsnetwork&utm_medium=l&utm_content=content&utm_ca mpaign=[facility]&herbert=[facility]&placementsite=c[place]ba&lxkcq=867874 ,?seizures https://www.[facility].org/diseases-conditions/seizure/symptoms-causes/[facility]93583 711?mc_id=us&utm_source=newsnetwork&utm_medium=l&utm_content=content&utm_campaig n=[facility]&herbert=[facility]&placementsite=[place]&towsu=639573 ?and various heart ailments. Even common medications such as aspirin, ibuprofen and penicillin can be affected by an increase in fiber. You may take your medicati ons one hour before or two hours after eating fiber to minimize the interaction. Some fiber supplements may not be appropriate for people with certain medical conditions. For example, if you have celiac disease, you may need to stay away from fiber products derived from wheat. If you have diabetes, you may need to use a flavorless formula to avoid extra sugar. Consult your health care provider for guidance about the appropriate fiber supplement. Go slow as you begin fiber therapy. Fiber supplements may cause abdominal bloating, cramping and flatulence, especially if you start at a high dose. Begin with a low dose, gradually increasing the amount of fiber. Don?t add more than 50 grams of fiber in a supplement per day, as that may affect how your body absorbs nutrients. Your health care provider can help determine what?s right for you. Drinking plenty of water and exercising regularly can help ease constipation, too. If increasing fiber doesn?t improve your symptoms, see your health care provider. Constipation can be a symptom of various underlying medical disorders, such as pelvic floor muscle dysfunction, slow gastrointestinal motility, anatomical abnormalities or endocrine dysfunction that may require different treatment.? Activity:: See above Diet:: See above Discharge Orders Discharge Orders: Discharge Order (Routine); Ordered 06/26/23 Ordered By: Vilma Prasad DS: Diagnosis Discharge Diagnosis (1) GERD (gastroesophageal reflux disease): Status: Chronic (2) Fibromyalgia: Status: Acute (3) Hypertension: (4) Allergic rhinitis: (5) Migraine headache: (6) Lyme disease: (7) Colon cancer screening: Status: Acute Asessment and Plan: The patient is seen and examined after their colonoscopy.? The patient has been able to pass gas.? They are not having abdominal pain.? They have been able to tolerate liquids and a snack.? They do not have any nausea or vomiting.? They are not having any chest pain or shortness of breath.??? They are not having any rectal bleeding. Their vital signs have been stable-see nursing notes. We discussed findings during their colonoscopy, and any biopsies that were done/polyps that were removed. The patient will be sent a letter with any biopsy results, and when to repeat the colonoscopy.-see discharge instructions. Patient was given explicit instructions to follow-up regarding colonoscopy-refer to discharge instructions.? We reviewed resumption of medications. Patient verbalized understanding and discharged in stable and satisfactory condition- See nursing notes. (8) Screening for malignant neoplasm of colon performed: Status: Acute (9) Diverticula of colon: Status: Acute
--- NOTE | 2023-06-25 22:08 | COLE_ITS ---
Date of service: 06/26/23 Time of Service: 08:30 Colonoscopy Report Date of procedure: 06/26/23 Pre-op diagnosis general: Colorectal cancer screening Surgeon: Vilma Prasad Anesthesia Type: General:No Airway Estimated blood loss (mL): 0 Pathology: none sent Complications: None Disposition: same day Prep: Miralax/Dulcolax Retraction Time: 8 Procedure Description: After informed consent was obtained the patient was taken to the procedure room and placed in a left decubitous position. Monitors were applied and a time out was done. The patients name, date of , procedure, allergies to medications and metal in their body was reviewed. The patient was then sedated. Once sedated and comfortable a rectal exam was done. External exam was normal. Internal exam revealed a normal sphincter tone and no palpable masses. The scope was then introduced and retrofelexed. No internal hemorrhoids were identified. The scope was then advanced to the cecum without difficulty. The TI and appendiceal orifice were identified. The prep was BBPS 3 in all segments for total of 9. The scope was then slowly retracted over 8 minutes back into the rectum. There are no polyps or AVMs visualized. She has a few small minute diverticula confined to the sigmoid colon.. The scope was removed and the patient was woken up and taken back to Same day surgery in stable condition. The patient tolerated the procedure well and there were no immediate c omplications. Follow up: The patient should follow up in 10 years unless they develop changes in bowel habits or other new gastrointestinal complaints.
--- NOTE | 2023-06-25 22:10 | ENDO_ITS ---
Date of service: 06/26/23 Time of Service: 08:25 Endoscopy Report DATE OF PROCEDURE: 06/26/23 PRE-OP DIAGNOSIS: GERD POST-OP DIAGNOSIS: other (Mild gastritis in the upper portion of the stomach. 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 Monitors were applied and a time out was done. The patients name, date of , procedure type, allergies to medications and metal in their body was reviewed. A bite block was placed and the patient was sedated. Once sedated and comfortable the gastroscope was advanced through the oropharynx which was grossly normal into the esophagus. The proximal and mid- esophagus were normal. In the distal esophagus there was there is no esophageal erosions, varices, diverticula or stricture. She has what appears to be x1 tongue of Muhammad's that is 0.5 cm at the 9 o'clock position. This is biopsied. the scope was advanced into the stomach and through the pylorus into the 3rd portion of the duodenum. The duodenum was noted to be normal. Biopsies were done, all specimen is retrieved and no bleeding is noted. The scope was retracted back into the stomach and biopsies were done to rule out H. pylori. There is some mild gastritis noted in the upper portion of the stomach along the greater curvature and up into the cardia and fundus. The scope was retroflexed. No hiatal hernia noted. The scope was retracted back into the esophagus and biopsies were done of the GE junction to rule out Muhammad's. The Z line was irregular. The GE junction was at 38 cm from the lips. The scope was removed and the patient was woken up and taken back to [facility] in stable condition.
[2023-06-26 06:15] VITALS: BP 138/97; PULSE 70; RESP 18; TEMP 36.2; O2SAT 96
[2023-06-26] MEDS: Lactated Ringers 1,000 ML 80 ML IV (06:51)
--- NOTE | 2023-06-26 07:19 | W.ANESPRE ---
General Info Date of Service Date Performed: 06/26/23 Height: 5 ft 4 in Weight: 86.8 kg Body Mass Index (BMI): 32.8 Surgical Procedure: Operation Date: 06/26/23 07:35 Proposed Procedure Side Surgeon p Colonoscopy/Gastroscopy Vilma Prasad, Meds Allergies and Home Medications Allergies Allergy/AdvReac Type Severity Reaction Status Date / Time amoxicillin Allergy Mild Verified 06/26/23 06:31 sulfamethoxazole Allergy Mild Verified 06/26/23 06:31 [From Bactrim] trimethoprim [From Bactrim] Allergy Mild Verified 06/26/23 06:31 Milk Containing Products Allergy Unknown Verified 06/26/23 06:31 (Dairy) adhesive Allergy rash/bliste Verified 06/26/23 06:31 rs Penicillins Allergy Hives Verified 06/26/23 06:31 eggplant Allergy Skin Rash Uncoded 06/26/23 06:31 peppers Allergy Skin Rash Uncoded 06/26/23 06:31 potatoes Allergy Skin Rash Uncoded 06/26/23 06:31 tomatoes Allergy Skin Rash Uncoded 06/26/23 06:31 Home Medication Medication Instructions Recorded amiloride 5 mg tablet 5 mg PO DAILY 03/20/14 sumatriptan succinate 100 mg tablet 100 mg PO PRN PRN 01/05/15 magnesium oxide 800 mg (2 x 400 mg magnesium) PO 10/06/15 DAILY #90 caps potassium chloride 10 mEq 20 meq (2 x 10 mEq) PO DAILY ##90 10/06/15 tablet,extended release(part/cryst) (Klor-Con M) cholecalciferol (vitamin D3) 25 25 mcg PO DAILY 10/29/20 mcg (1,000 unit) capsule hydrochlorothiazide 25 mg tablet 25 mg PO BID 10/29/20 ibuprofen 800 mg tablet 800 mg PO TID PRN 10/29/20 duloxetine 60 mg capsule,delayed 60 mg PO DAILY 11/07/20 release potassium citrate 10 mEq (1,080 2,160 mg PO BID 01/17/21 mg) tablet,extended release Naltrexone 6 mg PO DAILY 06/11/21 buspirone 10 mg tablet 10 mg PO BID 05/13/23 pregabalin 150 mg capsule (Lyrica) 150 mg PO BID 05/13/23 Current Visit Medications: Current Medications Generic Name Dose Route Start Last Admin Trade Name Freq PRN Reason Stop Dose Admin Hyoscyamine Sulfate 0.125 mg 06/26/23 10:10 Hyoscyamine 0.125 Mg Sl/Oral/Chew SL 07/26/23 10:09 DIRECTED PRN Ringer's Solution 1,000 mls @ 80 mls/hr 06/26/23 06:00 06/26/23 06:51 IV 06/26/23 23:59 80 mls/hr INFUSION DENNIS Administration IV Miscellaneous Supplies 1 each 06/26/23 06:00 Iv Access IV 06/26/23 23:59 DIRECTED DENNIS Ondansetron HCl 4 mg 06/26/23 10:16 Ondansetron 4 Mg/2 Ml Vial IVP 07/26/23 10:15 Q4H PRN PRN Nausea / Vomiting Sodium Chloride 0 ml 06/26/23 06:00 Normal Saline Flush 10 Ml Syr IV 06/26/23 23:59 PRN PRN Sodium Chloride 0 ml 06/26/23 06:00 Normal Saline 10 Ml Vial IJ 06/26/23 23:59 DIRECTED PRN Sterile Water 0 ml 06/26/23 06:00 Water,Injection,Sterile 10 Ml Vial IJ 06/26/23 23:59 DIRECTED PRN PFSH Active Problems Active Problems: Problem Status Onset Code Screening for malignant neoplasm of colon performed Z12.11 Colon cancer screening Z12.11 GERD (gastroesophageal reflux disease) K21.9 Fibromyalgia M79.7 Contusion of elbow S50.00XA Medical History Medical History Aftercare following right shoulder joint replacement surgery Hypertension Allergic rhinitis Neck pain Migraine headache Nephrolithiasis Lumbar radiculitis Lyme disease Abnormal EKG Mitral insufficiency Arthralgia Positive antinuclear antibody Hip pain Fibromyalgia Hot flashes, menopausal Depression Hx of fracture of finger RRF Surgical History Surgical History H/O: section H/O right wrist surgery Tobacco Smoking/Tobacco Use Status: Never Alcohol Alcohol Intake: current Alcohol intake frequency: holidays/special occasions only Details: Not since taking gabapentin Substance Use Substance use: Daily Substance use type: marijuana Vital Signs and Lab Results Vital Signs Most Recent Vital Signs in EMR: Most Recent Vital Signs Temp Pulse Resp BP Pulse Ox 36.2 C L 70 18 138/97 H 96 06/26/23 06:15 06/26/23 06:15 06/26/23 06:15 06/26/23 06:15 06/26/23 06:15 Lab Results Blood Type / Crossmatch: No Data to Display Complete Blood Count: No Data to Display Complete Metabolic Panel: Sodium 140 mmol/L (136-145) 06/08/23 08:10 Potassium 3.7 mmol/L (3.5-5.1) 06/08/23 08:10 Chloride 105 mmol/L (98-107) 06/08/23 08:10 Carbon Dioxide 23.1 mmol/L (21.0-32.0) 06/08/23 08:10 BUN 17 mg/dL (7-18) 06/08/23 08:10 Creatinine 0.9 mg/dL (0.55-1.02) 06/08/23 08:10 Est GFR (CKD-EPI 2020) 78.86 (mL/min/1.73m2) 06/08/23 08:10 Magnesium 2.2 mg/dL (1.8-2.4) 06/08/23 08:10 Calcium 9.3 mg/dL (8.5-10.1) 06/08/23 08:10 Glucose 109 mg/dL (74-106) H 06/08/23 08:10 Liver Function Panel: No Data to Display Coagulation Panel: No Data to Display Cardiac Panel: No Data to Display Arterial Blood Gas: No Data to Display Venous Blood Gas: No Data to Display Pancreas Panel: No Data to Display Thyroid Panel: No Data to Display Infectious Disease: No Data to Display Blood Cultures: No Data to Display Toxicology Panel: No Data to Display Panel: No Data to Display Anesthesia Assessment and Plan Anesthesia History Personal History: No History of Anesthesia Complications Family History: No Family History of Anesthesia Complications Exercise Tolerance Exercise Tolerance: Metabolic Equivalents>4 Pertinent Negatives Pertinent Negatives: No Symptoms of GERD Cardiac & Pulmonary Exam Cardiac Exam: Normal S1/S2 Heart Sounds Pulmonary Exam: Clear Bilateral Breath Sounds Implantable Cardiac Device Does patient have a Pacemaker or an ICD?: No Airway Exam Known Difficult Airway: No Mallampati Class: 2 Mouth Opening: Normal (> 3cm) Thyromental Distance: Greater than 3 cm Neck Range of Motion: Full ROM Neck Circumference: Normal Teeth Condition: Normal Dentition ASA Classification ASA Score: ASA 2 Emergency Case?: No NPO Status NPO Status: NPO Clears >2 hours, Solids >8 hours Status Status: Not Relevant due to Medical History Anesthesia Plan Resuscitation Status: Full Code Anesthesia Technique: General Anesthesia Airway Planned: Natural Airway Monitors Used: Standard Monitors
[2023-06-26 07:20] VITALS: BMI 32.8
--- NOTE | 2023-06-26 07:51 | STOM_PTH ---
PATIENT: Barbi Ivey LOC: [facility] U#:[id number] AGE/SX: 47/F ROOM: RE06/26/[address]: Vilma Prasad : 1975 BED: DIS: 06/26/2023 SPEC #: [id number] RECD: 06/26/23 12:21 STATUS: VIKAS RE #: [id number] WILLEM: 06/26/23 07:[address]: Vilma Prasad DEPT: Surgical Specimen RECD BY: Lizet Morris ENTERED: 06/26/23 12:23 SP TYPE: STOMACH OTHR DR: Aníbal Christopher Tissues: 1 - BIOPSY BOWEL 2 - BIOPSY BOWEL 3 - STOMACH BIOPSY 4 - STOMACH BIOPSY 5 - STOMACH BIOPSY 6 - ESOPHAGUS BIOPSY 7 - ESOPHAGUS BIOPSY Procedures: GROSS AND MICRO LEVEL 4 IMMUNOPEROXIDASE STAIN Comments: [id number]
[2023-06-26 08:23] VITALS: BP 115/81; PULSE 63; RESP 16; TEMP 36.4; O2SAT 95
--- NOTE | 2023-06-26 08:28 | W.ANESPOSTOP ---
Postoperative Evaluation Date, Time and Location Date Performed: 06/26/23 Time Performed: 08: Patient Location: Day [facility] Unit Vital Signs Most Recent Imported Vital Signs: Most Recent Vital Signs Temp Pulse Resp BP Pulse Ox 36.4 C L 63 16 115/81 95 06/26/23 08:23 06/26/23 08:23 06/26/23 08:23 06/26/23 08:23 06/26/23 08:23 Pain Score Most Recent Pain Score: Most Recent Pain Score Pain Level 0 06/26/23 08:23 Assessment Mental Status: Awake (Alert & Oriented to Patient Baseline) Airway and Respiratory Function: Patent airway with normal (patient baseline) respiratory exam Cardiovascular Function: Hemodynamically Stable Hydration Status: Adequately Hydrated Nausea & Vomiting: No Nausea or Vomiting Pain: Pt. Denies Any Pain Peripheral Nerve Block: Patient did not receive a nerve block
[2023-06-26 08:53] VITALS: BP 147/91; PULSE 53; RESP 16; TEMP 36.4; O2SAT 95
== END 2023-06-26 09:00 | disposition home or self-care (01) ==
LOC: SUR 06:11
PROVIDERS: PCP Physician Assistant; Visit Provider Surgery
PROC: (CPT 45378; principal; 2023-06-26 07:30)
DX: Z12.11 Encounter for screening for malignant neoplasm of colon; K21.9 Gastro-esophageal reflux disease without esophagitis; K57.30 Diverticulosis of large intestine without perforation or abscess without bleeding; K29.70 Gastritis, unspecified, without bleeding
CPT/HCPCS: 45378; 43239; 88305; 88361; J2001; J2704

== ENCOUNTER → 2023-08-06 01:16 | Outpatient (CLI) | payer MEDICAID, SELFPAY ==
--- NOTE | 2023-08-06 12:45 | DI.MAMMO_ITS ---
Exam(s) MAMMO SCREENING EXAM: MAMMO SCREENING CLINICAL HISTORY: Screening Z12.39 TECHNIQUE: Mammograms were interpreted according to the usual protocol including computer analysis w [employer] CAD system, tomosynthesis and C-view imaging. COMPARISON: 2014 through 2021 FINDINGS: The breasts are composed of mainly fatty density , Breast Density category A. No suspicious masses or suspicious microcalcifications are seen. No skin thickening or abnormal axillary lymph nodes are seen. There has been no significant change from prior exams. IMPRESSION: BI-RADS Category 1, Negative mammogram Yearly screening mammography is recommended. Breast Density - Category A, fatty density. A negative radiographic report should not delay biopsy if a dominant or clinically suspicious mass is present. Up to ten percent of cancers are not identified on mammography. A negative report may reinforce clinical impression. Adenosis and dense breasts may obscure an underlying neoplasm. False positive reports average 6 to 10%. Patient will receive a letter notifying them of these results.
== END ==
PROVIDERS: PCP Physician Assistant; Visit Provider Physician Assistant
DX: Z12.31 Encounter for screening mammogram for malignant neoplasm of breast (principal); R92.313 Mammographic fatty tissue density, bilateral breasts
CPT/HCPCS: 77063; 77067

== ENCOUNTER → 2023-08-19 01:26 | Outpatient (CLI) | payer MEDICAID, SELFPAY ==
--- NOTE | 2023-08-19 08:30 | DI.RAD_ITS ---
Exam(s) XR HIP RT COMPLETE AP PELVIS EXAM: XR HIP RT COMPLETE AP PELVIS CLINICAL HISTORY: PAIN IN RT HIP, M25.551, PAIN WITH PELVIC COMPRESSION. TECHNIQUE: 2D digital imaging was performed. COMPARISON: No exams were available for comparison FINDINGS: Two views. No evidence of pelvic nor hip fractures. No hip joint space narrowing. No osseous lesions. Additio nal lateral view of the right hip does not reveal joint space narrowing nor osteophytes. IMPRESSION: No significant osseous findings in the pelvis and hips. DATA REPOSITORY: RADIATION DOSE DELIVERED:
== END ==
PROVIDERS: PCP Physician Assistant; Visit Provider Nurse Practitioner Family
DX: M25.551 Pain in right hip (principal)
CPT/HCPCS: 73502

== ENCOUNTER 2023-08-24 18:37 | Emergency (ER) | payer MEDICAID, SELFPAY ==
[2023-08-24 18:41] VITALS: BP 118/75; PULSE 86; RESP 18; TEMP 36.8; O2SAT 97
--- NOTE | 2023-08-24 18:45 | DI.CT_ITS ---
Exam(s) CT RENAL COLIC WO EXAM: CT RENAL COLIC WO CLINICAL HISTORY: right flank pain. TECHNIQUE: Imaging Protocol: Axial computed tomography images with coronal and sagittal reformatted images were created and reviewed. CONTRAST MATERIAL: Noncontrast COMPARISON: CT ABD PELVIS WITH CONTRAST from 02/27/2016 FINDINGS: ABDOMEN: Lung Bases: Normal where visualized. Liver: Fatty infiltration no measurable mass. Gallbladder and biliary tract: No radiodense calculus or dilation. Pancreas: Normal density, no calcifications or inflammatory process. Spleen: Normal. Kidneys: Normal size, contour and axis. No radiodense stones or obstructive uropathy. No masses seen. Adrenal glands: No masses seen. Abdominal Aorta: Abdominal portion non-dilated. Soft tissues: Unremarkable. PELVIS: Bladder: Symmetric distention, no gross wall thickening. No evidence of stones.No visible mass. Bowel: No obstruction or bowel wall thickening. Mild sigmoid diverticulosis. No evidence of divertic ulitis. No evidence of appendicitis. Moderate quantity of stool. Reproductive: Unremarkable. Peritoneal cavity: No ascites, collection or mesenteric inflammatory response. Bones: Mild degenerative changes. Limbus vertebra at L4. IMPRESSION: No acute abnormality in the abdomen and pelvis. RADIATION DOSE DELIVERED: Total DLP DATA REPOSITORY: All CT scans at this facility are submitted to the National Radiology Data Registry (NRDR) Dose Index Registry (DIR) with the [employer] (ACR). RADIATION OPTIMIZATION: All CT scans at this facility use at least one of these dose optimization te chniques: automated exposure control; mA and/or kV adjustment per patient size (includes targeted exa ms where dose is matched to clinical indication); or iterative reconstruction.
[2023-08-24 19:38] LABS: Abs Immature Grans 0.01 10^3/uL (0.0-0.06); Absolute Basophil Count 0.05 10^3/uL (0.0-0.2); Absolute Eosinophil Count 0.19 10^3/uL (0.0-0.7); Absolute Lymphocyte Count 1.27 10^3/uL (1.2-3.4); Absolute Monocyte Count 0.65 10^3/uL (0.1-0.8); Absolute Neutrophil Count 5.16 10^3/uL (1.2-6.7); Basophils % 0.7; Eosinophils % 2.6; HCT 37.6 % (36.0-46.0); HGB 13.2 g/dL (11.2-15.7); Immature Grans % 0.1; Lymphocytes % 17.3; MCH 30.9 pg (27.0-33.0); MCHC 35.1 % (32.0-36.0); MCV 88 fL (80-95); MPV 10.8 fL (8.0-11.0); Monocytes % 8.9; Neutrophils % 70.4; Platelet Count 244 10^3/uL (130-400); RBC 4.27 10^6/uL (3.93-5.22); RDW 13.3 % (11.7-14.6); RDW-SD 42.7 fL; WBC 7.33 10^3/uL (4.4-10.8)
[2023-08-24] MEDS: Ketorolac 30 MG/ML VIAL IVP (19:48)
[2023-08-24] MEDS: Normal Saline 1,000 ML 1000 ML IV (19:49)
[2023-08-24 19:54] LABS: ALT 29 U/L (14-59); AST 16 U/L (15-37); Albumin 3.7 g/dL (3.4-5.0); Alkaline Phosphatase 95 U/L (46-116); Anion Gap 9.1 mmol/L (3-11); BUN 11 mg/dL (7-18); Bilirubin, Total 0.4 mg/dL (0.2-1.0); CO2 27.9 mmol/L (21.0-32.0); CREATININE 0.9 mg/dL (0.55-1.02); Calcium 8.8 mg/dL (8.5-10.1); Chloride 103 mmol/L (98-107); Estimated GFR 78.86 (mL/min/1.73m2); Glucose 101 mg/dL (74-106); Potassium 3.2 mmol/L (3.5-5.1); Sodium 140 mmol/L (136-145); Total Protein 7.1 g/dL (6.4-8.2)
[2023-08-24 19:57] LABS: Bilirubin Negative (Negative); Blood Negative (Negative); Clarity Clear (Clear); Glucose Negative (Negative); Ketones Negative (Negative); Leukocyte Esterase Negative (Negative); Nitrite Negative (Negative); Specific Gravity 1.015 (1.005-1.025); Urobilinogen 0.2 mg/dL (Up to 0.2); pH 7.5 (5-8)
--- NOTE | 2023-08-24 20:58 | DI.VRAD_ITS ---
PROCEDURE INFORMATION: Exam: CT Abdomen And Pelvis Without Contrast Exam date and time: 08/24/2023 7:50 PM Age: 47 years old Clinical indication: Abdominal pain TECHNIQUE: Imaging protocol: Computed tomography of the abdomen and pelvis without contrast. COMPARISON: CR XR HIP RT COMPLETE AP PELVIS 08/19/2023 8:27 AM FINDINGS: Lungs: Lung bases are clear. Liver: Diffuse hypoattenuation of the liver with scattered areas of focal fatty sparing consistent with hepatic steatosis. Liver is not enlarged. No obvious mass however lack of contrast limits evaluation. Gallbladder and bile ducts: No significant pericholecystic inflammatory stranding. No calcified stones. No ductal dilation. Pancreas: Unremarkable unhanced appearance of the pancreas. No ductal dilation. Spleen: Unremarkable unenhanced appearance of the spleen. No splenomegaly. Adrenal glands: No adrenal mass. Kidneys and ureters: Unremarkable unenhanced appearance. No hydronephrosis. No renal calcifications. Ureters are normal in course and caliber. Stomach and bowel: Stomach mildly distended by ingested material without focal gastric mural thickening. No evidence of bowel obstruction. Mild sigmoid diverticulosis without evidence of acute sigmoid diverticulitis. No focal bowel wall thickening. Appendix: No evidence of acute appendicitis. Intraperitoneal space: No free fluid in the abdomen or pelvis. No free air. Vasculature: There are mild scattered atherosclerotic calcifications of the abdominal aorta and its major branches, no abdominal aortic aneurysm. Lymph nodes: No pathologically enlarged lymph nodes. Urinary bladder: Unremarkable as visualized. Reproductive: Unremarkable as visualized. Bones/joints: Limbus vertebra of L4. Mild multilevel degenerative changes of the spine. No acute fracture. Soft tissues: No focal abnormality. IMPRESSION: 1. No acute, unenhanced CT finding of the abdomen or pelvis. 2. Hepatic steatosis. Dictated and Authenticated by: Sanchez Belcher MD. Ordering:LUCIA Walters MD
--- NOTE | 2023-08-24 21:06 | ED.GENADUL_ITS ---
Discharge Plan Disposition Patient Disposition: Home Discharge Details Clinical Impression: Acute right flank pain Primary Care Provider: Aníbal Christopher ED Provider: Romeo Diaz Home Meds and New Rx's Prescriptions: Continued buspirone 10 mg tablet 10 mg PO BID hydrochlorothiazide 25 mg Tablet 25 mg PO DAILY ibuprofen 800 mg Tablet 800 mg PO TID PRN duloxetine 60 mg capsule,delayed release(DR/EC) 60 mg PO DAILY amiloride 5 MG tablet 5 mg PO DAILY potassium chloride [Klor-Con M10] 10 MEQ tablet,ER particles/crystals 20 meq PO DAILY Qty: 90 0RF magnesium oxide 400 MG capsule 800 mg PO DAILY Qty: 90 0RF nabumetone 750 mg tablet 750 mg PO BID pantoprazole [Protonix] 40 mg tablet,delayed release (DR/EC) 40 mg PO DAILY Qty: 30 12RF Discharge Instructions Instructions: Flank Pain (ED) Additional Instructions: At this time your workup was negative for any emergent or life-threatening findings. You may continue to take your normally prescribed medication along with any irzc-vrc-thmltyl pain medication that you typically take. If you have any new or significant worsening of your condition feel free to return to the emergency department for reassessment otherwise follow-up with your primary care provider if not improving. Referrals: Aníbal Christopher [Primary Care Provider] - 1 week (As needed for reassessment if not improving) Medical Decision Making Patient presenting to the emergency department for chief complaint of right flank pain radiating into lower abdomen. Patient states that this started 2 days ago. She does state couple weeks ago she did fall injuring her right buttock and pelvis which has also been aggravated recently but this seems somewhat separate. Patient with past medical history of kidney stones, fibromyalgia, Lyme disease. Physical exam shows right CVA tenderness, mild right upper quadrant and lower quadrant tenderness with most tenderness noted was with CVA testing. Patient has clear lung sounds, not tachycardic, and normotensive with normal vital signs. Will check labs and renal study imaging given history of kidney stones and significant right CVA tenderness. Pending results will give fluids and ketorolac. Review of labs show a completely unremarkable CBC, CMP has slightly decreased potassium at 3.2 which will orally replete, patient is not and urine is unremarkable. CT imaging was performed and shows no acute abdominal findings. Patient reassessed and patient does state some improvement of overall symptoms. With history of fibromyalgia and Lyme disease do still consider potential muscle skeletal type pain so we will put lidocaine patches on area of most pain and outpatient follow-up with primary care provider. After discussion of diagnosis and plan of care patient has no further needs, questions, or concerns and states clear understanding to return to the emergency department for any worsening symptoms. This documentation was generated using [employer] dictation system, please disregard any oddities of phrase or misspellings. Imaging Data Radiologic Study: Imaging: X-Ray Radiologist's impression: Exam(s) PROCEDURE INFORMATION: Exam: CT Abdomen And Pelvis Without Contrast Exam date and time: 08/24/2023 7:50 PM Age: 47 years old Clinical indication: Abdominal pain TECHNIQUE: Imaging protocol: Computed tomography of the abdomen and pelvis without contrast. COMPARISON: CR XR HIP RT COMPLETE AP PELVIS 08/19/2023 8:27 AM FINDINGS: Lungs: Lung bases are clear. Liver: Diffuse hypoattenuation of the liver with scattered areas of focal fatty sparing consistent with hepatic steatosis. Liver is not enlarged. No obvious mass however lack of contrast limits evaluation. Gallbladder and bile ducts: No significant pericholecystic inflammatory stranding. No calcified stones. No ductal dilation. Pancreas: Unremarkable unhanced appearance of the pancreas. No ductal dilation. Spleen: Unremarkable unenhanced appearance of the spleen. No splenomegaly. Adrenal glands: No adrenal mass. Kidneys and ureters: Unremarkable unenhanced appearance. No hydronephrosis. No renal calcifications. Ureters are normal in course and caliber. Stomach and bowel: Stomach mildly distended by ingested material without focal gastric mural thickening. No evidence of bowel obstruction. Mild sigmoid diverticulosis without evidence of acute sigmoid diverticulitis. No focal bowel wall thickening. Appendix: No evidence of acute appendicitis. Intraperitoneal space: No free fluid in the abdomen or pelvis. No free air. Vasculature: There are mild scattered atherosclerotic calcifications of the abdominal aorta and its major branches, no abdominal aortic aneurysm. Lymph nodes: No pathologically enlarged lymph nodes. Urinary bladder: Unremarkable as visualized. Reproductive: Unremarkable as visualized. Bones/joints: Limbus vertebra of L4. Mild multilevel degenerative changes of the spine. No acute fracture. Soft tissues: No focal abnormality. IMPRESSION: 1. No acute, unenhanced CT finding of the abdomen or pelvis. 2. Hepatic steatosis. Dictated and Authenticated by: Sanchez Belcher MD. Lab Data Lab results reviewed: Yes I reviewed the patient's lab results. HPI General Mode of arrival: ambulatory . Date/Time Provider Initiated Documentation: 08/24/23 18:38 . Limitations to Documentation: no limitations . Information obtained by: patient and RN notes reviewed . History of Present Illness 47 year old F presents to the emergency department with the chief complaint of Right flank and back pain, described as moderate, and is localized to the back and abdomen. Patient started experiencing this day(s) (2) and it has been constant. No relieving factors improve symptom(s), No exacerbating factors reported . Patient did receive the following treatments prior to arrival, none Related Data Home Medications Medication Instructions Recorded Confirmed amiloride 5 mg tablet 5 mg PO DAILY 03/20/14 08/24/23 magnesium oxide 800 mg (2 x 400 mg magnesium) PO 10/06/15 08/24/23 DAILY #90 caps potassium chloride 10 mEq 20 meq (2 x 10 mEq) PO DAILY ##90 10/06/15 08/24/23 tablet,extended release(part/cryst) (Klor-Con M) hydrochlorothiazide 25 mg tablet 25 mg PO DAILY 10/29/20 08/24/23 ibuprofen 800 mg tablet 800 mg PO TID PRN 10/29/20 08/24/23 duloxetine 60 mg capsule,delayed 60 mg PO DAILY 11/07/20 08/24/23 release buspirone 10 mg tablet 10 mg PO BID 05/13/23 08/24/23 pantoprazole 40 mg tablet,delayed 40 mg PO DAILY #30 tabs 06/26/23 08/24/23 release (Protonix) nabumetone 750 mg tablet 750 mg PO BID 08/24/23 08/24/23 Previous Rx's Medication Instructions Recorded magnesium oxide 800 mg (2 x 400 mg magnesium) PO 10/06/15 DAILY #90 caps potassium chloride 10 mEq 20 meq (2 x 10 mEq) PO DAILY ##90 10/06/15 tablet,extended release(part/cryst) (Klor-Con M) pantoprazole 40 mg tablet,delayed 40 mg PO DAILY #30 tabs 06/26/23 release (Protonix) Allergies Allergy/AdvReac Type Severity Reaction Status Date / Time amoxicillin Allergy Mild Verified 08/24/23 18:43 sulfamethoxazole Allergy Mild Verified 08/24/23 18:43 [From Bactrim] trimethoprim [From Bactrim] Allergy Mild Verified 08/24/23 18:43 Milk Containing Products Allergy Unknown Verified 08/24/23 18:43 (Dairy) adhesive Allergy rash/bliste Verified 08/24/23 18:43 rs Penicillins Allergy Hives Verified 08/24/23 18:43 eggplant Allergy Skin Rash Uncoded 08/24/23 18:43 peppers Allergy Skin Rash Uncoded 08/24/23 18:43 potatoes Allergy Skin Rash Uncoded 08/24/23 18:43 tomatoes Allergy Skin Rash Uncoded 08/24/23 18:43 General Stated Complaint: FlankPain PJ: 3 Review of Systems Constitutional Constitutional: Reports chills and Reports poor appetite Cardiovascular Cardiovascular: Denies chest pain and Denies dyspnea Respiratory Respiratory: Denies cough and Denies dyspnea Gastrointestinal Gastrointestinal: Reports abdominal pain, Denies change in bowel habits, Denies diarrhea, Reports nausea and Denies vomiting Genitourinary Genitourinary: Denies hematuria, Denies dysuria, Denies pelvic pain, Reports flank pain and Denies urinary incontinence PFSH All Active Problems (Updated 08/24/23 @ 21:20 by Romeo Diaz NP) Acute right flank pain (Acute) Diverticula of colon (Acute) Screening for malignant neoplasm of colon performed (Acute) Colon cancer screening (Acute) GERD (gastroesophageal reflux disease) (Chronic) Fibromyalgia (Acute) Contusion of elbow (Acute) Medical History (Updated 08/24/23 @ 21:20 by Romeo Diaz NP) Aftercare following right shoulder joint replacement surgery Hypertension Allergic rhinitis Neck pain Migraine headache Nephrolithiasis Lumbar radiculitis Lyme disease Abnormal EKG Mitral insufficiency Arthralgia Positive antinuclear antibody Hip pain Fibromyalgia Hot flashes, menopausal Depression Hx of fracture of finger RRF Surgical History (Updated 06/29/23 @ 10:28 by Cathy Rubi) History of colonoscopy (~05/2023) History of esophagogastroduodenoscopy (~05/2023) Biopies taken H/O: section H/O right wrist surgery Social History Smoking/Tobacco Use Status: Never Smoking risk assessment performed?: Yes Alcohol Intake: current Alcohol Intake frequency: holidays/special occasions only Details: Not since taking gabapentin Drug use: Daily Substance use type: marijuana Household members: spouse and children Housing: house Number of Children: 3 current occupation: Not Employed Current gender identity: female What type of physical activity do you participate in: walking and independent ambulation Seatbelt use: always Do you feel safe at home: Yes Do you feel safe in your relationship?: Yes Exam Const General: cooperative Orientation: alert, awake and oriented x3 Resp Effort & Inspection: normal respiratory effort and able to speak in complete sentences Auscultation: clear to auscultation bilaterally Cardio Rate: regular rate Rhythm: regular rhythm Heart Sounds: S1 normal and S2 normal GI Palpation: soft, not firm, no guarding, no masses, no pulsatile masses, not rigid, no splenomegaly and tender in the RLQ and in the RUQ; not at McBurney's point, not suprapubicly, Elizondo's sign negative, psoas sign negative, with no r ebound tenderness and Rovsing's sign negative Auscultation: normal bowel sounds General: CVA tenderness on the right Back/Spine/Pelvis Back: no CVA tenderness Neuro General: patient alert, patient awake, patient oriented x3, gait normal and moves all extremities Course Vital Signs Vital signs: Vital Signs Temperature 36.8 C 08/24/23 18:41 Pulse 86 08/24/23 18:41 Respiratory Rate 18 08/24/23 18:41 Blood Pressure 118/75 08/24/23 18:41 Pulse Oximetry 97 08/24/23 18:41 Temperature 36.8 C 08/24/23 18:41 Temperature Source Oral 08/24/23 18:41 Pulse 86 08/24/23 18:41 Respiratory Rate 18 08/24/23 18:41 Respiratory Effort Normal, Non-Labored 08/24/23 18:50 Blood Pressure 118/75 08/24/23 18:41 Blood Pressure Position Sitting 08/24/23 18:41 Pulse Oximetry 97 08/24/23 18:41 Oxygen Delivery Method Room Air 08/24/23 18:41 Oxygen Flow Rate 0 08/24/23 18:41 Pain Level 6 08/24/23 19:48 Lab/Test Results Lab/Test Results: Laboratory Tests Range/Units 08/24/23 08/24/23 19:23 19:28 WBC (4.4-10.8) 10^3/uL 7.33 RBC (3.93-5.22) 10^6/uL 4.27 Hgb (11.2-15.7) g/dL 13.2 Hct (36.0-46.0) % 37.6 MCV (80-95) fL 88 MCH (27.0-33.0) pg 30.9 MCHC (32.0-36.0) % 35.1 RDW (11.7-14.6) % 13.3 Plt Count (130-400) 10^3/uL 244 MPV (8.0-11.0) fL 10.8 Immature Gran % 0.1 Neutrophils % 70.4 Lymphocytes % 17.3 Monocytes % 8.9 Eosinophils % 2.6 Basophils % 0.7 Nucleated RBC % (0.0-0.3) % 0.0 Absolute Neutrophils (1.2-6.7) 10^3/uL 5.16 Absolute Lymphocytes (1.2-3.4) 10^3/uL 1.27 Absolute Monocytes (0.1-0.8) 10^3/uL 0.65 Absolute Eosinophils (0.0-0.7) 10^3/uL 0.19 Absolute Basophils (0.0-0.2) 10^3/uL 0.05 Sodium (136-145) mmol/L 140 Potassium (3.5-5.1) mmol/L 3.2 L Chloride (98-107) mmol/L 103 Carbon Dioxide (21.0-32.0) mmol/L 27.9 Anion Gap (3-11) mmol/L 9.1 BUN (7-18) mg/dL 11 Creatinine (0.55-1.02) mg/dL 0.9 Est GFR (CKD-EPI 2020) (mL/min/1.73m2) 78.86 Glucose (74-106) mg/dL 101 Calcium (8.5-10.1) mg/dL 8.8 Total Bilirubin (0.2-1.0) mg/dL 0.4 AST (15-37) U/L 16 ALT (14-59) U/L 29 Alkaline Phosphatase (46-116) U/L 95 Total Protein (6.4-8.2) g/dL 7.1 Albumin (3.4-5.0) g/dL 3.7 Urine Color (Yellow) Yellow Urine Clarity (Clear) Clear Urine pH (5-8) 7.5 Ur Specific Allison (1.005-1.025) 1.015 Urine Protein (Negative) mg/dL Negative Urine Ketones (Negative) mg/dL Negative Urine Blood (Negative) Negative Urine Nitrite (Negative) Negative Urine Bilirubin (Negative) Negative Urine Urobilinogen (Up to 0.2) mg/dL 0.2 Ur Leukocyte Esterase (Negative) Negative Urine Glucose (Negative) mg/dL Negative POC- Test(urine) Negative
[2023-08-24] MEDS: Potassium Chloride 20 MEQ TABCR 40 MEQ PO (21:20)
[2023-08-24] MEDS: Lidocaine 5% Patch 2 PATCH TP (21:33)
[2023-08-24 21:34] VITALS: BP 157/102; PULSE 78; RESP 16; O2SAT 99
== END 2023-08-24 21:35 | disposition home or self-care (01) ==
PROVIDERS: Emergency Provider Nurse Practitioner Family; PCP Physician Assistant
DX: R10.9 Unspecified abdominal pain (principal)
CPT/HCPCS: 80053; 81025; 96361; 96374; 99284; 74176; 81003; 85025; J1885

== ENCOUNTER 2023-10-30 12:18 | Outpatient (REF) | payer MEDICAID, SELFPAY ==
--- NOTE | 2023-10-30 12:21 | PAPFT_PTH ---
PATIENT: Barbi Ivey LOC: [facility] U#:[id number] AGE/SX: 47/F ROOM: RE10/30/[address]: Jammie Jameson MD : 1975 BED: DIS: 10/30/2023 SPEC #: [id number] RECD: 10/30/23 13:09 STATUS: VIKAS REDamien #: [id number] WILLEM: 10/30/23 12:[address]: Jammie Jameson [facility]PT[facility] Cytology RECD BY: Lizet Morris ENTERED: 10/30/23 13:10 SP TYPE: PAPFT OTHR DR: Aníbal Christopher Tissues: 1 - CX/ENDOCX FOR PAP SMEARS Procedures: PAP THIN PREP/[facility] Screening HPV DNA PROBE Comments: [id number]
== END 2023-10-30 12:19 | disposition home or self-care (01) ==
LOC: LBN 12:18
PROVIDERS: PCP Physician Assistant; Visit Provider Obstetrics & Gynecology
DX: Z12.4 Encounter for screening for malignant neoplasm of cervix (principal); Z11.51 Encounter for screening for human papillomavirus (HPV)
CPT/HCPCS: 88142; 87624

== ENCOUNTER 2023-10-31 08:53 | Emergency (ER) | payer MEDICAID, SELFPAY ==
[2023-10-31] VITALS (38 sets, daily range): BP systolic 148–200; BP diastolic 84–121; PULSE 58–98; RESP 12–23; TEMP 36.5; O2SAT 94–96
--- NOTE | 2023-10-31 09:00 | RT.EKG_ITS ---
APPROVED REPORT Exam: Resting ECG Reason for Exam: chest pain Patient Location: E HR:64 bpm ECG Measurements Heart Rate 64 AXIS OR 153 P 16 QRSd 92 QRS 13 QT 426 T 28 QTc 440 Conclusion Sinus rhythm...normal P axis, V-rate 60- 99 sinus rhtyhm, normal axis, normal intervals, non ischemic
--- NOTE | 2023-10-31 09:14 | ED.GENADUL_ITS ---
Discharge Plan Disposition Patient Disposition: Home Condition: Stable Discharge Details Clinical Impression: Neck pain Primary Care Provider: Aníbal Christopher ED Provider: Yoav Bergeron Home Meds and New Rx's Prescriptions: Continued buspirone 10 mg tablet 10 mg PO BID hydrochlorothiazide 25 mg Tablet 25 mg PO DAILY ibuprofen 800 mg Tablet 800 mg PO TID PRN duloxetine 60 mg capsule,delayed release(DR/EC) 60 mg PO DAILY amiloride 5 MG tablet 5 mg PO DAILY potassium chloride [Klor-Con M10] 10 MEQ tablet,ER particles/crystals 20 meq PO DAILY Qty: 90 0RF magnesium oxide 400 MG capsule 800 mg PO DAILY Qty: 90 0RF pantoprazole [Protonix] 40 mg tablet,delayed release (DR/EC) 40 mg PO DAILY Qty: 30 12RF pregabalin [Lyrica] 75 mg capsule 75 mg PO BID Discharge Instructions Instructions: Cyclobenzaprine (By mouth), Noncardiac Chest Pain (ED), Neck Pain (ED) Additional Instructions: You were seen in the emergency department for your noncardiac chest pain, you have lateral neck pain and we are providing you with a muscle relaxer cyclobenzaprine. You can apply lidocaine patch to the area and perform gentle massage as well as warm compresses to the area. Please do not drive on the cyclobenzaprine. There was no evidence for blood clot in your lungs and multiple troponin tests were performed that confirmed this is not likely any cardiac chest pain, your EKG was normal and you have no signs of major infection. You do have elevated blood pressure which resolved here in the department. You had a recent reduction in your dose of hydrochlorothiazide, I suggest that you go back to 25 mg. Referrals: Aníbal Christopher [Primary Care Provider] - Discharge Data Discharge Date/Time-TO BE ENTERED AT DEPARTURE: 10/31/23 13:12 HPI General Date/Time Provider Initiated Documentation: 10/31/23 09:03 . HPI Narrative: 47 year-old female presents to ED today by POV/ambulating with a chief complaint of headache, L lateral neck pain, pain in breast/chest pain, with shortness of breath- notes that her BP is elevated, has been checking it serially- with recent dose reduction in her HCTZ with onset yesterday- but chest pain onset about 2 hours prior to arrival with some palpitations. Quality described as sharp pains, no radiation to near syncope, excessive sweating, vomiting, endorses fatigue, denies recent URI/fevers. Severity is described as moderate. Palliating factors include nothing specific attempted. Provoking factors include nothing specific. Events leading up to the incident/Associated Symptoms: Patient denies cardiac history. Patient not anticoagulated. Related Data Home Medications Medication Instructions Recorded Confirmed amiloride 5 mg tablet 5 mg PO DAILY 03/20/14 10/31/23 magnesium oxide 800 mg (2 x 400 mg magnesium) PO 10/06/15 10/31/23 DAILY #90 caps potassium chloride 10 mEq 20 meq (2 x 10 mEq) PO DAILY ##90 10/06/15 10/31/23 tablet,extended release(part/cryst) (Klor-Con M) hydrochlorothiazide 25 mg tablet 25 mg PO DAILY 10/29/20 10/31/23 ibuprofen 800 mg tablet 800 mg PO TID PRN 10/29/20 10/31/23 duloxetine 60 mg capsule,delayed 60 mg PO DAILY 11/07/20 10/31/23 release buspirone 10 mg tablet 10 mg PO BID 05/13/23 10/31/23 pantoprazole 40 mg tablet,delayed 40 mg PO DAILY #30 tabs 06/26/23 10/31/23 release (Protonix) pregabalin 75 mg capsule (Lyrica) 75 mg PO BID 10/31/23 10/31/23 Previous Rx's Medication Instructions Recorded magnesium oxide 800 mg (2 x 400 mg magnesium) PO 10/06/15 DAILY #90 caps potassium chloride 10 mEq 20 meq (2 x 10 mEq) PO DAILY ##90 10/06/15 tablet,extended release(part/cryst) (Klor-Con M) pantoprazole 40 mg tablet,delayed 40 mg PO DAILY #30 tabs 06/26/23 release (Protonix) Allergies Allergy/AdvReac Type Severity Reaction Status Date / Time amoxicillin Allergy Mild Hives Verified 10/31/23 09:59 sulfamethoxazole Allergy Mild hives Verified 10/31/23 09:59 [From Bactrim] trimethoprim [From Bactrim] Allergy Mild hives Verified 10/31/23 09:59 Milk Containing Products Allergy Unknown stomache Verified 10/31/23 09:59 (Dairy) issues adhesive Allergy rash/bliste Verified 10/31/23 09:59 rs Penicillins Allergy Hives Verified 10/31/23 09:59 eggplant Allergy Skin Rash Uncoded 10/31/23 09:59 peppers Allergy Skin Rash Uncoded 10/31/23 09:59 potatoes Allergy Skin Rash Uncoded 10/31/23 09:59 tomatoes Allergy Skin Rash Uncoded 10/31/23 09:59 General Stated Complaint: Chest Pain PJ: 2 Review of Systems All systems reviewed & are unremarkable except as noted in HPI and below Exam Narrative Exam Narrative: GENERAL APPEARANCE: Well-nourished, non-toxic, awake and alert, atraumatic, no acute distress. SKIN: Warm, pink, dry, intact, without rashes/lesions/ulcerations. HEAD: Normocephalic, atraumatic, normal hair distribution for gender/age. EYES: Pupils PERRLA, EOMs intact without nystagmus, normal conjunctiva, no exudates on lids/lashes. ENT: Nares patent, no circumoral cyanosis, no facial swelling NECK: Supple, trachea midline, painless cervical ROM, L lateral neck pain in L trapezius. LUNGS/CHEST: Lungs CTA bilaterally- no rhonchi/rales/wheezes diffusely, non- labored respirations, normal A/P diameter, symmetrical expansion, no chest wall deformity HEART (CV/PV): Regular rate and rhythm without murmur, no peripheral edema, mild JVD. ABDOMEN: Soft, non-distended, no guarding, no tenderness. MSK: Normal ROM, no swelling/deformity to bilateral UEs or LEs, moving all extremities without weakness, no cyanosis, spine midline without tenderness, normal curvature. NEURO: Mental Status AAOx4 - alert to person, place, time, events No facial droop, no forehead involvement. Motor: No focal weakness - strength 5/5 in bilateral UEs and LEs, proximal and distal, symmetric. Sensory: sensation intact to light touch globally. Gait normal: patient ambulated without ataxia into ED room. PSYCH: euthymic, cooperative, pleasant, appropriate speech Course Vital Signs Vital signs: Vital Signs Temperature 36.5 C 10/31/23 08:57 Pulse 66 10/31/23 08:57 Respiratory Rate 18 10/31/23 08:57 Blood Pressure 191/117 H 10/31/23 08:57 Pulse Oximetry 96 10/31/23 08:57 Temperature 36.5 C 10/31/23 08:57 Temperature Source Temporal Artery Scan 10/31/23 08:57 Pulse 66 10/31/23 08:57 Respiratory Rate 18 10/31/23 09:08 Respiratory Effort Short of Breath 10/31/23 09:08 Respiratory Depth Normal 10/31/23 09:08 Respiratory Pattern Normal 10/31/23 09:08 Blood Pressure 191/117 H 10/31/23 08:57 Blood Pressure Position Sitting 10/31/23 08:57 Pulse Oximetry 96 10/31/23 08:57 Oxygen Delivery Method Room Air 10/31/23 08:57 Oxygen Flow Rate 0 10/31/23 08:57 Medical Decision Making This dictation utilizes [id number] dictation software and may contain unedited grammatical errors. 47 y/o M presents to ED today with a chief complaint of constellation of complaints- FLORES, neck pain (lateral), palpitations, high BP readings. Denies cardiac history, non-exertional in nature, pleuritic. Patients' medical history: Hypertension, migraine headache, mitral insufficiency, fibromyalgia. Family and social history: non-smoker, eats well. Pertinent exam findings / vital signs include mild JVD, otherwise benign cardiac exam, lungs CTA, benign abdomen, neuro intact, nontoxic- hypertensive, resolving without intervention. Differential / pathologies of concern include hypertensive urgency, anxiety, costochondritis, ACS, PE, pneumonia. Diagnostic studies of: -CBC, CMP, troponin, BNP, lipase, D-dimer, TSH, EKG, chest x-ray. -delta troponin neg -BNP wnl -D-dimer neg -TSH mild elev -CBC no leukocytosis, no anemia -CMP no major electrolyte abnormalities -EKG NSR, normal axis, no ST changes, narrow QRS, no arrhythmia -CXR negative Interventions of: -IVF, cyclobenzaprine to go. ED Course/Assessment/Plan: 47-year-old female presents with hypertension, constellation of complaints, has been taking excessive BP readings, endorses lateral neck pain and headache as well as some chest pain with palpitations that is nonexertional. Counseled that this was noncardiac with multiple negative troponins, D-dimer not elevated do not suspect PE, no tachycardia. Patient has a clear chest x-ray, no signs of infection, I counseled on attempted relief for musculoskeletal neck and costochondral pain. Counseled on following up with PCP and discussion for possible echocardiogram with a heart score of the low risk. Findings not consistent with ACS, PE, pneumothorax, cardiac chest pain, pneumonia. Disposition of neck pain. Patient verbalized understanding of the plan and return to ED criteria and engaged in shared decision making. Medical Records Medical records reviewed: Yes I reviewed the patient's medical records. Imaging Data Radiologic Study: Attestation: I personally reviewed and interpreted this imaging study as follows: Imaging: X-Ray Radiologist's impression: XR CHEST 2V PA LATERAL EXAM: XR CHEST 2V PA LATERAL CLINICAL HISTORY: chest L shoulder pain TECHNIQUE: 2D digital imaging was performed. COMPARISON: CR CHEST 2 VIEWS PA,LAT from 10/05/2015 FINDINGS: HEART: Normal size. Aorta: Not dilated. PULMONARY VASCULATURE: Normal. LUNGS: Clear. PLEURAL SPACE: No pleural effusion or pneumothorax. BONE:Unremarkable for age. Soft tissues: Unremarkable. IMPRESSION: No acute abnormality. Lab Data Lab results reviewed: Yes I reviewed the patient's lab results. Labs: Laboratory Tests Range/Units 10/31/23 10/31/23 10/31/23 09:15 09:25 12:09 WBC (4.4-10.8) 10^3/uL 5.11 RBC (3.93-5.22) 10^6/uL 4.78 Hgb (11.2-15.7) g/dL 14.9 Hct (36.0-46.0) % 42.4 MCV (80-95) fL 89 MCH (27.0-33.0) pg 31.2 MCHC (32.0-36.0) % 35.1 RDW (11.7-14.6) % 13.7 Plt Count (130-400) 10^3/uL 250 MPV (8.0-11.0) fL 11.0 Immature Gran % 0.2 Neutrophils % 60.3 Lymphocytes % 25.6 Monocytes % 10.0 Eosinophils % 2.7 Basophils % 1.2 Nucleated RBC % (0.0-0.3) % 0.0 Absolute Neutrophils (1.2-6.7) 10^3/uL 3.08 Absolute Lymphocytes (1.2-3.4) 10^3/uL 1.31 Absolute Monocytes (0.1-0.8) 10^3/uL 0.51 Absolute Eosinophils (0.0-0.7) 10^3/uL 0.14 Absolute Basophils (0.0-0.2) 10^3/uL 0.06 D-Dimer (<500) ng/mlFEU 380 Sodium (136-145) mmol/L 140 Potassium (3.5-5.1) mmol/L 3.2 L Chloride (98-107) mmol/L 102 Carbon Dioxide (21.0-32.0) mmol/L 27.0 Anion Gap (3-11) mmol/L 11.0 BUN (7-18) mg/dL 13 Creatinine (0.55-1.02) mg/dL 0.8 Est GFR (CKD-EPI 2020) (mL/min/1.73m2) 90.83 Glucose (74-106) mg/dL 96 Calcium (8.5-10.1) mg/dL 9.1 Magnesium (1.8-2.4) mg/dL 1.9 Total Bilirubin (0.2-1.0) mg/dL 0.5 AST (15-37) U/L 23 ALT (14-59) U/L 35 Alkaline Phosphatase (46-116) U/L 117 H Troponin I Cancelled < 50 < 50 NT-Pro-B Natriuret Pep Cancelled 113 Total Protein (6.4-8.2) g/dL 7.6 Albumin (3.4-5.0) g/dL 3.9 Lipase Cancelled 26 TSH Cancelled 4.06 H Free T4 (0.76-1.46) ng/dL 0.86 Quality:SDOH Health Related Social Needs: No Data to Display PFSH All Active Problems (Updated 10/31/23 @ 12:54 by NATO Tian) Neck pain (Acute) Diverticula of colon (Acute) GERD (gastroesophageal reflux disease) (Chronic) Fibromyalgia (Acute) Contusion of elbow (Acute) Medical History (Updated 10/31/23 @ 12:54 by NATO Tian) Eating disorder Screening for malignant neoplasm of colon performed Colon cancer screening Aftercare following right shoulder joint replacement surgery Hypertension Allergic rhinitis Neck pain Migraine headache Nephrolithiasis Lumbar radiculitis Lyme disease Abnormal EKG Mitral insufficiency Arthralgia Positive antinuclear antibody Hip pain Fibromyalgia Hot flashes, menopausal Depression Hx of fracture of finger RRF Surgical History (Updated 10/30/23 @ 17:25 by Jammie Jameson MD) History of D&C x2 after SAB and MAB H/O laparoscopy BTL 08/10/2003 [facility] History of colonoscopy (~05/2023) History of esophagogastroduodenoscopy (~05/2023) Biopies taken H/O: section 1998, 2001 H/O right wrist surgery Family History (Updated 10/30/23 @ 17:27 by Jammie Jameson MD) Other Heart disease Hyperlipidemia Hypertension Osteoporosis Stroke Thyroid disorder Social History (Updated 10/30/23 @ 17:30 by Jammie Jameson MD) Smoking/Tobacco Use Status: Never Smoking risk assessment performed?: Yes Alcohol Intake: current Alcohol Intake frequency: holidays/special occasions only Details: Not since taking gabapentin Drug use: Daily Substance use type: marijuana Household members: spouse, significant other and children Housing: house Number of Children: 3 current occupation: Not Employed Current gender identity: female What type of physical activity do you participate in: walking and independent ambulation Seatbelt use: always Do you feel safe at home: Yes Do you feel safe in your relationship?: Yes Female Reproductive History Menstrual Age of Menarche: 12 Menopause type: natural Date of menopause: 08/31/17 History History 4 Para 2 Hx # Term Pregnancies 1 Multiple births Hx # Pregnancies 1 Ectopic pregnancies AB induced Hx Number of Living Children 2 AB spontaneous 2 Past Pregnancies Del. Date GA/Weeks # Preg Succ Route Wgt Sex Labor Lgth Anesth esia Location Prov Complic Unknown 8 No Unknown 13 No 02/20/99 No Yes Female [facility] 08/16/02 36 No Yes Male [place] Delivery Date: Last Updated by: Jammie Jameson MD SAB - D&C Delivery Date: Last Updated by: Jammie Jameson MD MAB - D&C
[2023-10-31 09:35] LABS: Abs Immature Grans 0.01 10^3/uL (0.0-0.06); Absolute Basophil Count 0.06 10^3/uL (0.0-0.2); Absolute Eosinophil Count 0.14 10^3/uL (0.0-0.7); Absolute Lymphocyte Count 1.31 10^3/uL (1.2-3.4); Absolute Monocyte Count 0.51 10^3/uL (0.1-0.8); Absolute Neutrophil Count 3.08 10^3/uL (1.2-6.7); Basophils % 1.2; Eosinophils % 2.7; HCT 42.4 % (36.0-46.0); HGB 14.9 g/dL (11.2-15.7); Immature Grans % 0.2; Lymphocytes % 25.6; MCH 31.2 pg (27.0-33.0); MCHC 35.1 % (32.0-36.0); MCV 89 fL (80-95); Neutrophils % 60.3; Platelet Count 250 10^3/uL (130-400); RBC 4.78 10^6/uL (3.93-5.22); RDW 13.7 % (11.7-14.6); RDW-SD 45.1 fL; WBC 5.11 10^3/uL (4.4-10.8)
[2023-10-31 10:00] LABS: ALT 35 U/L (14-59); AST 23 U/L (15-37); Albumin 3.9 g/dL (3.4-5.0); Alkaline Phosphatase 117 U/L (46-116); BUN 13 mg/dL (7-18); Bilirubin, Total 0.5 mg/dL (0.2-1.0); CREATININE 0.8 mg/dL (0.55-1.02); Calcium 9.1 mg/dL (8.5-10.1); Chloride 102 mmol/L (98-107); Estimated GFR 90.83 (mL/min/1.73m2); Glucose 96 mg/dL (74-106); Lipase 26 U/L (16-77); Magnesium 1.9 mg/dL (1.8-2.4); NT-proBNP 113 pg/mL (<300); Potassium 3.2 mmol/L (3.5-5.1); Sodium 140 mmol/L (136-145); TSH (W/Ref FT4) 4.06 uIU/mL (0.36-3.74); Total Protein 7.6 g/dL (6.4-8.2); Troponin I < 50 ng/L (< or =60)
--- NOTE | 2023-10-31 10:00 | DI.RAD_ITS ---
Exam(s) XR CHEST 2V PA LATERAL EXAM: XR CHEST 2V PA LATERAL CLINICAL HISTORY: chest L shoulder pain TECHNIQUE: 2D digital imaging was performed. COMPARISON: CR CHEST 2 VIEWS PA,LAT from 10/05/2015 FINDINGS: HEART: Normal size. Aorta: Not dilated. PULMONARY VASCULATURE: Normal. LUNGS: Clear. PLEURAL SPACE: No pleural effusion or pneumothorax. BONE:Unremarkable for age. Soft tissues: Unremarkable. IMPRESSION: No acute abnormality. DATA REPOSITORY: RADIATION DOSE DELIVERED:
[2023-10-31 10:04] LABS: D-Dimer 380 ng/mlFEU (<500)
[2023-10-31 10:16] LABS: FREE T4 0.86 ng/dL (0.76-1.46)
--- NOTE | 2023-10-31 11:48 | DI.VRAD_ITS ---
PROCEDURE INFORMATION: Exam: XR Chest Exam date and time: 10/31/2023 10:49 AM Age: 47 years old Clinical indication: Other: Chest L shoulder pain TECHNIQUE: Imaging protocol: Radiologic exam of the chest. Views: 2 views. COMPARISON: CT RENAL COLIC WO 08/24/2023 7:50 PM FINDINGS: Lungs: Slight opacity over right lung base, right perihilar region possibly due to overlap. Otherwise, no focal infiltrates seen of the lungs. Pleural spaces: No pneumothorax and no pleural effusion seen. Heart/Mediastinum: Heart size appears within normal. Vasculature: Tortuous aorta. Bones/joints: Mild degenerative changes spine. Intraperitoneal space: No free intraperitoneal air seen beneath the diaphragm. IMPRESSION: No acute findings seen of the chest. Dictated and Authenticated by: Theron Knight MD. Ordering:KENJI Cason MD
[2023-10-31 12:44] LABS: Troponin I < 50 ng/L (< or =60)
[2023-10-31] MEDS: Cyclobenzaprine 10 MG TAB, 3 TABS/BTL PO (13:10)
== END 2023-10-31 13:12 | disposition home or self-care (01) ==
PROVIDERS: Emergency Provider Physician Assistant; PCP Physician Assistant
DX: R51.9 Headache, unspecified (principal); M54.2 Cervicalgia; R07.9 Chest pain, unspecified; I10 Essential (primary) hypertension; E78.5 Hyperlipidemia, unspecified
CPT/HCPCS: 36415; 80053; 83690; 93005; 99285; 71046; 83735; 83880; 84439; 84443; 84484; 85025; 85379; 93010; 99284

== ENCOUNTER 2023-12-02 08:30 | Outpatient (REF) | payer MEDICAID, SELFPAY ==
[2023-12-02 15:42] LABS: ALT 39 U/L (14-59); AST 26 U/L (15-37); Albumin 3.9 g/dL (3.4-5.0); Alkaline Phosphatase 122 U/L (46-116); Anion Gap 12.1 mmol/L (3-11); BUN 18 mg/dL (7-18); Bilirubin, Total 0.4 mg/dL (0.2-1.0); CO2 26.9 mmol/L (21.0-32.0); CREATININE 0.8 mg/dL (0.55-1.02); Calcium 9.3 mg/dL (8.5-10.1); Calculated LDL 167 mg/dL (<100); Chloride 106 mmol/L (98-107); Cholesterol 258 mg/dL (<200); Estimated GFR 90.27 (mL/min/1.73m2); Glucose 97 mg/dL (74-106); HDL Cholesterol 56 mg/dL (40-60); Potassium 3.8 mmol/L (3.5-5.1); Sodium 145 mmol/L (136-145); Total Protein 7.1 g/dL (6.4-8.2); Triglyceride 179 mg/dL (<150)
== END 2023-12-02 08:31 | disposition home or self-care (01) ==
LOC: NCHCN 08:30
PROVIDERS: PCP Physician Assistant; Visit Provider Physician Assistant
DX: E78.5 Hyperlipidemia, unspecified (principal)
CPT/HCPCS: 80053; 80061

== ENCOUNTER → 2024-02-29 01:58 | Outpatient (CLI) | payer MEDICAID, SELFPAY ==
--- NOTE | 2024-02-29 | DI.RAD_ITS ---
Exam(s) XR LUMBAR SPINE COMPLETE EXAM: XR LUMBAR SPINE COMPLETE CLINICAL HISTORY: PAIN IN LUMBAR SPINE, M54.51, VERTEBROGENIC LOW BACK PAIN, M25.552. TECHNIQUE: 2D digital imaging was performed. COMPARISON: No exams were available for comparison FINDINGS: Five views. There is a defect in the anterosuperior aspect of the L4 vertebral body which may be remnant of limbu s vertebra. There is disc space narrowing at L3-4 level. Some disc space narrowing is also noted at T12-L1, L1-2 and L5-S1 levels. Facet joints exhibit minim al degenerative changes. None there is no scoliosis. No osseous lesions. Sacroiliac joints appear unremarkable. IMPRESSION: Multilevel disc space narrowing. Density projected over the right side of the sacrum is probably an undigested pill within bowel loops in the pelvis. DATA REPOSITORY: RADIATION DOSE DELIVERED:
--- NOTE | 2024-02-29 | DI.RAD_ITS ---
Exam(s) XR HIP LT COMPLETE AP PELVIS EXAM: XR HIP LT COMPLETE AP PELVIS CLINICAL HISTORY: PAIN LT LEG,HIP,LS SPINE,M79.605,H/O FALL,?FX. TECHNIQUE: 2D digital imaging was performed. COMPARISON: CR XR HIP RT COMPLETE AP PELVIS from 08/19/2023 FINDINGS: Two views. No evidence of pelvic nor hip fractures. No obvious degenerative changes in the hips. Additional la teral view of the left hip does not reveal osteophytes nor joint space narrowing. Sacroiliac joints appear unremarkable. A radiopaque density which is probably an undigested pill is noted in the central right side of the p percy. IMPRESSION: No acute osseous findings in the pelvis and hips. DATA REPOSITORY: RADIATION DOSE DELIVERED:
== END ==
PROVIDERS: PCP Physician Assistant; Visit Provider Naturopath
DX: M54.51 Vertebrogenic low back pain (principal); M79.605 Pain in left leg; M25.552 Pain in left hip
CPT/HCPCS: 72110; 73502

== ENCOUNTER 2024-05-23 09:44 | Outpatient (CLI) | payer MEDICAID, SELFPAY ==
[2024-05-23 10:11] LABS: ALT 34 U/L (14-59); AST 24 U/L (15-37); Albumin 3.9 g/dL (3.4-5.0); Alkaline Phosphatase 137 U/L (46-116); Anion Gap 11.5 mmol/L (3-11); BUN 13 mg/dL (7-18); Bilirubin, Total 0.74 mg/dL (0.2-1.0); CO2 28.5 mmol/L (21.0-32.0); CREATININE 0.8 mg/dL (0.55-1.02); Chloride 101 mmol/L (98-107); Estimated GFR 90.27 (mL/min/1.73m2); Glucose 105 mg/dL (74-106); Sodium 141 mmol/L (136-145); Total Protein 7.5 g/dL (6.4-8.2)
[2024-05-23 10:20] LABS: Potassium 2.8 mmol/L (3.5-5.1)
== END 2024-05-23 09:45 | disposition home or self-care (01) ==
LOC: LBO 09:44
PROVIDERS: PCP Physician Assistant; Visit Provider Naturopath
DX: R79.0 Abnormal level of blood mineral (principal)
CPT/HCPCS: 36415; 80053

== ENCOUNTER 2024-05-27 02:26 | Outpatient (CLI) | payer MEDICAID, SELFPAY ==
--- OUTSIDE RECORDS SUMMARY | 2024-05-27 02:33 | XMS_ITS | Clinical Summary ---
Author Organization [facility] Address [facility] [place] [address] Care Team Providers Care Medical Leader Name Role Phone SheriblakeAlex mascorrohanie FIORELLA Primary Care Provider + Allergies Active Allergy Reactions Criticality Noted Date Comments Adhesive Dermatitis Medium 09/08/2012 Rash and blisters. Fine with paper tape Lisinopril Other (See Comments) hypotension Penicillins Hives Medications Medication Sig Dispensed Refills Start Date End Date Status SUMAtriptan (IMITREX) 100 mg tablet Take by mouth as needed. Active cetirizine (ZYRTEC) 10 mg Tablet Take 10 mg by mouth daily. Active aMILoride (MIDAMOR) 5 mg TabletIndications:N ephrolithiasis,Hypo kalemia Take 1 tablet by mouth daily. 90 tablet 3 04/09/2016 Active potassium Citrate (UROCIT) 10 mEq (1,080 mg) Tablet Sustained ReleaseIndications: calcium oxalate renal calculi,calcium phosphate renal calculi Take 1 tablet by mouth 3 times daily (with meals). Indications: Calcium Oxalate Renal Calculi, Calcium Phosphate Renal Calculi 270 tablet 3 12/18/2016 Active hydroCHLOROthiazide (HYDRODIURIL) 12.5 mg TabletIndications:N ephrolithiasis Take 2 tablets by mouth 2 times daily. 120 tablet 11 03/27/2017 Active venlafaxine (Effexor) 25 mg Tablet Take 25 mg by mouth 3 times daily. Active fish oil-omega-3 fatty acids 1,000 mg Capsule Take 1 g by mouth daily. Active cholecalciferol, Vitamin D3, (Vitamin D-3) 125 mcg (5,000 unit) Tablet Take 5,000 Units by mouth. Active Active Problems Problem Noted Date Diagnosed Date Kidney stones 02/11/2017 Hypokalemia 02/11/2017 Hematuria 07/24/2015 Hypertension 03/26/2011 History of kidney stones 03/26/2011 Right shoulder pain 03/25/2011 Resolved Problems Problem Noted Date Diagnosed Date Resolved Date half-way current use of opiate analgesic 09/05/2011 10/17/2011 Family History Medical History Relation Comments Alcohol Use Disorder Father Nephrolithiasis Neg Hx Relation Status Comments Father Social History Tobacco Use Types Packs/Day Years Used Date Smoking Tobacco: Never Smokeless Tobacco: Never Alcohol Use Standard Drinks/Week Comments Yes 0 (1 standard drink = 0.6 oz pur e alcohol) occasional Sex and Gender Information Value Date Recorded Sex Assigned at Not on file Gender Identity Not on file Sexual Orientation Not on file Last Filed Vital Signs Vital Sign Reading Time Taken Comments Blood Pressure 121/70 03/13/2020 1:00 PM EDT Pulse 95 03/13/2020 1:00 PM EDT Temperature 36.8 ??C (98.3 ??F) 12/08/2017 10:26 AM E DT Respiratory Rate 20 03/13/2020 1:00 PM EDT Oxygen Saturation 98% 05/10/2019 4:28 PM EDT Inhaled Oxygen Concentration - - Weight 74.8 kg (165 lb) 03/13/2020 1:00 PM EDT Height 162.6 cm (5' 4) 03/13/2020 1:00 PM EDT Body Mass Index 28.32 03/13/2020 1:00 PM EDT Plan of Treatment Health Maintenance Due Date Last Done Comments CT Colonography 1974 Colonoscopy 1974 Colorectal Cancer Screening 1974 FIT DNA 1974 FIT 1974 Sigmoidoscopy (10 year) with FIT yearly 1974 Sigmoidoscopy 1974 HIV screen 1992 Hepatitis C Screening 1992 Lipid Screening 1992 Hepatitis B vaccine (0-59 yr s) (1) 1993 Tetanus/Diphtheria/Pertussis Vaccines (1 - Tdap) 1993 HPV test 2004 PAP Smear 2004 Breast Cancer Share Decision Needed 2014 Breast Cancer screening 2014 Covid-19 Vaccine (1 - 2022-2 4 season) 2024 Influenza (Flu) vaccine (1 o f 1 - Influenza standard series) 05/01/2024 Diabetes Screening (HgbA1C o r Glucose) Discontinued 03/13/2020, 12/08/2017, 02/11/2017, Additional history exists Medical Devices Implanted Type Area Officer Lieutenant Device Identifier Shelf Expiration Date Model / Serial / Lot Stent,Contour -[id number] cm ([id number]) - [id number] Implanted:Qty : 1 on 02/01/2015 by Justin Grayson MD at [facility] IMPLANTS Left: Ureter DO NOT USE [employer] - [id number] 10/28/2017 [id number] / / [id number] Explanted Type Area Officer Lieutenant Device Identifier Shelf Expiration Date Model / Serial / Lot Stent,Contour -[id number] cm ([id number]) - [id number] Implanted:Qty : 1 on 01/11/2015 by Emeka Hernandez Jr., MD at [facility] Explanted:Qty : 1 on 02/01/2015 by Justin Grayson MD at [facility] IMPLANTS Left: Ureter DO NOT USE [employer] - [id number] 05/14/2017 [id number] / / [id number] Procedures Procedure Name Priority Date/Time Associated Diagnosis Comments HC VENIPUNCTURE STAT 03/13/2020 1:48 PM EDT Nephrolithiasis from Last 3 Months or Most Recently Relevant to Health Maintenance Results * (ABNORMAL) Basic Metabolic Panel (non-fasting) (03/13/2020 1:48 PM EDT) Glucose 91 65 - 199 mg/dL [facility] Comment:Diabetes: >=200 mg/d L plus symptoms Blood Urea Nitrogen 14 8 - 18 mg/dL [facility] Creatinine 0.75 0.70 - 1.20 mg/dL [facility] Sodium 142 135 - 145 mmol/L [facility] Potassium 3.0(Criti dalia) 3.5 - 5.0 mmol/L [facility] Comment: Called by: OCTAVIO, Read back by: janina vazquez, Date/Time:03/13/20 14:41. Please note: ??Patients with WBC >100,000 may have falsely elevated Potassium levels. ??For accurate Potassium quantification in these patients send serum separator tube (gold top) for subsequent determinations. ??Contact the Clinical Chemistry Laboratory if there are any questions. Chloride 102 98 - 107 mmol/L [facility] Carbon Dioxide 31 22 - 31 mmol/L [facility] Anion Gap 9 5 - 15 mmol/L [facility] Calcium 9.5 8.5 - 10.5 mg/dL [facility] Est Glomerular Filtration Rate 96 >=60 mL/min/1. 73 m?? [facility] Comment: The eGFR was calculated using the CKD-EPI equation. As with all creatinine based estimates of kidney function, eGFR values calculated with the CKD-EPI equation are not accurate in patients with acute kidney failure, extremes of body mass or the acutely ill. [email or web address] eGFR 112 >=60 mL/min/1. 73 m?? [facility] Comment: The eGFR was calculated using the CKD-EPI equation. As with all creatinine based estimates of kidney function, eGFR values calculated with the CKD-EPI equation are not accurate in patients with acute kidney failure, extremes of body mass or the acutely ill. [email or web address] Blood specimen (specimen) 03/13/2020 1:48 PM EDT 03/13/2020 1:56 PM EDT Narrative Resulting Agency Comment Spec In Lab Emeka Hernandez Jr., MD CHEMISTRY ORDERABL ES [facility] [place] [address] from Last 3 Months or Most Recently Relevant to Health Maintenance Advance Directives * Full Code (Latest Code Status on File) Date Activated Date Inactivated Comments 02/01/2015 10:42 AM 02/02/2015 7:22 PM Question Answer Comments Does patient have decision m aking capacity? Yes, order is based on Patient wishes. Care Teams Medical Leader Relationship Specialty Start Date End Date Arlen Ryan ND PCP - General Naturopathic Medicine 04/09/16 [facility] [place] [address] [address] [place] [address] Dock ClerkStaking Technician Medicine 03/26/11
--- OUTSIDE RECORDS SUMMARY | 2024-05-27 02:33 | XMS_ITS | Encounter Summary ---
Author Organization [facility] Address [facility] [place] [address] Care Team Providers Care Stable Hand Name Role Phone ShelbyAlexArlen FIORELLA Primary Care Provider + Encounter Details Date Type Department Care Team (Late st Contact Info) Description 02/22/2019 [place] [id number] Emeka Hernandez Jr., MD [facility] [place] [address] Social History Tobacco Use Types Packs/Day Years Used Date Smoking Tobacco: Never Smokeless Tobacco: Never Alcohol Use Standard Drinks/Week Comments Yes 0 (1 standard drink = 0.6 oz pur e alcohol) occasional Sex and Gender Information Value Date Recorded Sex Assigned at Not on file Gender Identity Not on file Sexual Orientation Not on file documented as of this encounter Miscellaneous Notes * Telephone Encounter - Shu Centeno - 02/22/2019 3:00 PM EDT Called PT and LLMOM asking PT to please call back. [facility] T[facility]P. Looking at 05/10/19. documented in this encounter Plan of Treatment Not on file documented as of this encounter Visit Diagnoses Not on filedocumented in this encounter Care Teams Stable Hand Relationship Specialty Start Date End Date Wawrzyniak, Arlen, ND PCP - General Naturopathic Medicine 04/09/16 [facility] [address] [address] [place] [address] Roundhouse Firer/FiremanMove Coordinator Medicine 03/26/11 documented as of this encounter
--- OUTSIDE RECORDS SUMMARY | 2024-05-27 02:33 | XMS_ITS | Encounter Summary ---
Author Organization [facility] Address [facility] [place] [address] Care Team Providers Care Adjustment Clerk Name Role Phone Arlen Ryan ND Primary Care Provider + Encounter Details Date Type Department Care Team (Late st Contact Info) Description 12/08/2017 11:00 AM EDT Office [place] [address] Pramod Gregory MD [facility] [address] Nephrolithiasis Social History Tobacco Use Types Packs/Day Years Used Date Smoking Tobacco: Never Smokeless Tobacco: Never Alcohol Use Standard Drinks/Week Comments Yes 0 (1 standard drink = 0.6 oz pur e alcohol) occasional Sex and Gender Information Value Date Recorded Sex Assigned at Not on file Gender Identity Not on file Sexual Orientation Not on file documented as of this encounter Last Filed Vital Signs Vital Sign Reading Time Taken Comments Blood Pressure 120/69 12/08/2017 10:57 AM EDT Pulse 72 12/08/2017 10:57 AM EDT Temperature - - Respiratory Rate - - Oxygen Saturation - - Inhaled Oxygen Concentration - - Weight - - Height - - Body Mass Index - - documented in this encounter Progress Notes * Pramod Gregory MD - 12/08/2017 11:00 AM EDT 42 y/o woman for follow up of urolithiasis The patient has been feeling well with no stone episode since her last visit, short episode of flank pain recently that resolved, no complaint offered, no muscle cramps, no urine changes observed, a review of systems was negative Medications: Current Outpatient Prescriptions: ??? hydroCHLOROthiazide (HYDRODIURIL) 12.5 mg Tablet, Take 2 tablets by mouth 2 times daily., Disp:120 tablet, Rfl: 11 ??? potassium Citrate (UROCIT) 10 mEq (1,080 mg) Tablet Sustained Release, Take 1 tablet by mouth 3times daily (with meals). Indications: Calcium Oxalate Renal Calculi, Calcium Phosphate Renal Calculi, Disp: 270 tablet, Rfl: 3 ??? aMILoride (MIDAMOR) 5 mg Tablet, Take 1 tablet by mouth daily., Disp: 90 tablet, Rfl: 3 ??? cetirizine (ZYRTEC) 10 mg Tablet, Take 10 mg by mouth daily., Disp: , Rfl: ??? SUMAtriptan (IMITREX) 100 mg tablet, Take by mouth as needed., Disp: , Rfl: Allergies Allergen Reactions ??? Adhesive Dermatitis Rash and blisters. Fine with paper tape ??? Lisinopril Other (See Comments) hypotension ??? Penicillins Hives Physical exam: Most Recent Vitals: 12/08/17 1057 BP: 120/69 Pulse: 72 normal color Heart regular rhythm No edema Labs: Results for BARBI IVEY ( ) as of 12/08/2017 13:24 Ref. Range 12/08/2017 11:24 WBC Latest Ref Range: 4.0 - 9.5 x10(3)/mcL 7.4 RBC Latest Ref Range: 4.00 - 5.21 x10(6)/mcL 4.62 Hemoglobin Latest Ref Range: 11.7 - 15.5 gm/dL 14.5 Hematocrit Latest Ref Range: 35.7 - 45.8 % 42.4 MCV Latest Ref Range: 82.6 - 94.4 fL 91.8 MCH Latest Ref Range: 27.1 - 32.0 pg 31.4 MCHC Latest Ref Range: 31.7 - 35.0 gm/dL 34.2 RDWSD Latest Ref Range: 37.0 - 46.0 fL 42.5 RDWCV Latest Ref Range: 11.5 - 14.1 % 12.7 Platelets Latest Ref Range: 145 - 357 x10(3)/mcL 255 MPV Latest Ref Range: 7.6 - 12.9 fL 11.3 nRBC % Auto Latest Units: % 0.0 nRBC Abs Auto Latest Ref Range: 0.000 - 0.000 x10(3)/mcL 0.000 Neutr Abs (ANC) Latest Ref Range: 1.70 - 6.10 x10(3)/mcL 4.13 Neutrophils % Latest Units: % 55.9 Immature Gran % Latest Units: % 0.10 Lymphocytes % Latest Units: % 31.9 Monocytes % Latest Units: % 9.1 Eosinophils % Latest Units: % 2.2 Basophils % Latest Units: % 0.8 Sienna Gran Abs Latest Ref Range: 0.00 - 0.04 x10(3)/mcL 0.01 Lymphocytes Abs Latest Ref Range: 0.9 - 3.2 x10(3)/mcL 2.4 Monocyte Abs Latest Ref Range: 0.3 - 0.9 x10(3)/mcL 0.7 Eosinophils Abs Latest Ref Range: 0.0 - 0.4 x10(3)/mcL 0.2 Basophils Abs Latest Ref Range: 0.0 - 0.1 x10(3)/mcL 0.1 Sodium Latest Ref Range: 135 - 145 mmol/L 141 Potassium Latest Ref Range: 3.5 - 5.0 mmol/L 3.4 (L) Chloride Latest Ref Range: 98 - 107 mmol/L 97 (L) CO2 Latest Ref Range: 22 - 31 mmol/L 30 Anion Gap Latest Ref Range: 5 - 15 mmol/L 14 BUN Latest Ref Range: 8 - 18 mg/dL 14 Creatinine Latest Ref Range: 0.70 - 1.20 mg/dL 0.71 Estimated GFR Latest Ref Range: >=60 >60 Glucose Lvl Latest Ref Range: 65 - 199 mg/dL 93 Calcium Latest Ref Range: 8.5 - 10.5 mg/dL 9.3 Magnesium Latest Ref Range: 0.69 - 1.07 mmol/L 0.78 Renal ultrasound: RIGHT KIDNEY: Size (cm) L: 10.1 Cortical Thickness: mild upper pole thinning Cortical Echogenicity: Normal Hydronephrosis: No sonographic evidence ?? LEFT KIDNEY: Size (cm) L: 10.9 Cortical Thickness: Upper pole thinning Cortical Echogenicity: Normal Hydronephrosis: No sonographic evidence ?? URINARY BLADDER: Pre-void (cm) L: 1.7 AP: 2.4 TV: 4.9 Vol (ml): 10.5 ?? Comment: Partially distended, normal contour ?? IMPRESSION 1. No evidence for nephrolithiasis.2. There remains areas of renal cortical scarring most prominent in the upperpole with upper pole thinning.3. No evidence for pelvic caliectasis or hydronephrosis. A/P: Doing well with no nephrolithiasis on recent ultrasound Repeat labs with potassium check today, added magnesium as well, labs reveal borderline low potassium, added a potassium supplement to the patients medications, called and left message 24hr Litholink collection before next visit documented in this encounter Plan of Treatment Not on file documented as of this encounter Procedures Procedure Name Priority Date/Time Associated Diagnosis Comments HEMOGRAM Routine 12/08/2017 11:24 AM EDT Nephrolithiasis DIFFERENTIAL, AUTOMATED Routine 12/08/2017 11:24 AM EDT Nephrolithiasis CBC (WITH DIFF) Routine 12/08/2017 11:24 AM EDT Nephrolithiasis MAGNESIUM Routine 12/08/2017 11:24 AM EDT Nephrolithiasis BASIC METABOLIC PANEL Routine 12/08/2017 11:24 AM EDT Nephrolithiasis documented in this encounter Results * Differential, Automated (12/08/2017 11:24 AM EDT) Neutrophil % 55.9 % [facility] Neutrophil Absolute 4.13 1.70 - 6.10 x10(3)/[facility] Lymph % 31.9 % [facility] Lymphocytes Abs 2.4 0.9 - 3.2 x10(3)/[facility] Monocyte % 9.1 % [facility] Monocyte Abs 0.7 0.3 - 0.9 x10(3)/[facility] Eos % 2.2 % [facility] Eosinophils Abs 0.2 0.0 - 0.4 x10(3)/[facility] Basophil % 0.8 % [facility] Baso Absolute 0.1 0.0 - 0.1 x10(3)/[facility] Immature Gran % 0.10 % [facility] Comment: Immature granulocytes(IG's)percentage and absolute count will include metamyelocytes, myelocytes, and promyelocytes. Blood smears from CBCs yielding IG's will be scanned manually for concordance. If this scan disagrees with the automated IG or if promyelocytes are noted, a manual differential will be performed. Immature Gran Absolute 0.01 0.00 - 0.04 x10(3)/[facility] Blood specimen (specimen) 12/08/2017 11:24 AM EDT 12/08/2017 11:29 AM EDT Narrative Resulting Agency Comment Spec In Lab Pramod Gregory MD HEMATOLOGY ORDERABLE S [facility] [place] [address] * Hemogram (12/08/2017 11:24 AM EDT) White Blood Cell 7.4 4.0 - 9.5 x10(3)/[facility] Red Blood Cell 4.62 4.00 - 5.21 x10(6)/[facility] Hemoglobin 14.5 11.7 - 15.5 gm/dL [facility] Hematocrit 42.4 35.7 - 45.8 % [facility] Mean Cell Volume 91.8 82.6 - 94.4 fL [facility] Mean Cell Hemoglobin 31.4 27.1 - 32.0 pg [facility] Mean Cell Hemoglobin Concentration 34.2 31.7 - 35.0 gm/dL [facility] Platelet 255 145 - 357 x10(3)/[facility] RDW Standard Deviation 42.5 37.0 - 46.0 fL [facility] RDW coefficient of variation 12.7 11.5 - 14.1 % [facility] Mean Platelet Volume 11.3 7.6 - 12.9 fL [facility] NRBC% auto 0.0 % [facility] NRBC Absolute 0.000 0.000 - 0.000 x10(3)/[facility] Blood specimen (specimen) 12/08/2017 11:24 AM EDT 12/08/2017 11:29 AM EDT Narrative Resulting Agency Comment Spec In Lab Pramod Gregory MD HEMATOLOGY ORDERABLE S Performing Organization Address City/[facility]/ZIP Co de Phone Number [facility] [place] [address] * Magnesium (12/08/2017 11:24 AM EDT) Magnesium 0.78 0.69 - 1.07 mmol/L [facility] Blood specimen (specimen) 12/08/2017 11:24 AM EDT 12/08/2017 11:29 AM EDT Narrative Resulting Agency Comment Spec In Lab Pramod Gregory MD CHEMISTRY ORDERABLES Performing Organization Address [facility]/ZIP Co de Phone Number [facility] [place] [address] * (ABNORMAL) Basic Metabolic Panel (non-fasting) (12/08/2017 11:24 AM EDT) Glucose 93 65 - 199 mg/dL [facility] Comment:Diabetes: >=200 mg/d L plus symptoms Blood Urea Nitrogen 14 8 - 18 mg/dL [facility] Creatinine 0.71 0.70 - 1.20 mg/dL [facility] Sodium 141 135 - 145 mmol/L [facility] Potassium 3.4(L) 3.5 - 5.0 mmol/L [facility] Comment: Please note: ??Patients with WBC >100,000 may have falsely elevated Potassium levels. ??For accurate Potassium quantification in these patients send serum separator tube (gold top) for subsequent determinations. ??Contact the Clinical Chemistry Laboratory if there are any questions. Chloride 97(L) 98 - 107 mmol/L [facility] Carbon Dioxide 30 22 - 31 mmol/L [facility] Anion Gap 14 5 - 15 mmol/L [facility] Calcium 9.3 8.5 - 10.5 mg/dL [facility] Est Glomerular Filtration Rate >60 >=60 [facility] Comment: The reported eGFR should be multiplied by 1.2 for patients. The MDRD is not an appropriate measure of renal function for patients with body mass extremes or in patients with acute kidney failure. [email or web address] [email or web address] Blood specimen (specimen) 12/08/2017 11:24 AM EDT 12/08/2017 11:29 AM EDT Narrative Resulting Agency Comment Spec In Lab Pramod Gregory MD CHEMISTRY ORDERABLES [facility] [place] [address] documented in this encounter Visit Diagnoses Diagnosis Nephrolithiasis Calculus of kidney documented in this encounter Care Teams Adjustment Clerk Relationship Specialty Start Date End Date Arlen Ryan ND PCP - General Naturopathic Medicine 04/09/16 [facility] [address] [address] [place] [address] Ios ProgrammerRoll Edge Stitcher Hand Medicine 03/26/11 documented as of this encounter
--- OUTSIDE RECORDS SUMMARY | 2024-05-27 02:33 | XMS_ITS | Encounter Summary ---
Author Organization [facility] Address [facility] [address] [place] [address] Care Team Providers Care Retail And Restaurant Associate Name Role Phone Arlen Ryan FIORELLA Primary Care Provider + Encounter Details Date Type Department Care Team (Late st Contact Info) Description 04/09/2016 Orders Only [place]phrology [place] [address] Marlene Caputo MD [facility] [place] [address] Hypokalemia Social History Tobacco Use Types Packs/Day Years Used Date Smoking Tobacco: Never Smokeless Tobacco: Never Alcohol Use Standard Drinks/Week Comments Yes 0 (1 standard drink = 0.6 oz pur e alcohol) occasional Sex and Gender Information Value Date Recorded Sex Assigned at Not on file Gender Identity Not on file Sexual Orientation Not on file documented as of this encounter Plan of Treatment Not on file documented as of this encounter Results * (ABNORMAL) Basic Metabolic Panel (non-fasting) (04/09/2016 11:57 AM EDT) Glucose 87 65 - 199 mg/dL [facility] Comment:Diabetes: >=200 mg/d L plus symptoms Blood Urea Nitrogen 11 8 - 18 mg/dL [facility] Creatinine 0.73 0.70 - 1.20 mg/dL [facility] Comment: Please note that the pediatric reference intervals supplied above were not validated at [facility]. Results from pediatric patients should be interpreted in conjunction to the patient's age, height and muscle mass. Sodium 137 135 - 145 mmol/L [facility] Potassium 2.7(Criti dalia) 3.5 - 5.0 mmol/L [facility] Comment: Results rechecked-gisselle Called by: gisselle, Read back by: Dr. Caputo_, Date/Time:04/09/16 13:14. Please note: ??Patients with WBC >100,000 may have falsely elevated Potassium levels. ??For accurate Potassium quantification in these patients send serum separator tube (gold top) for subsequent determinations. ??Contact the Clinical Chemistry Laboratory if there are any questions. Chloride 95(L) 98 - 107 mmol/L [facility] Carbon Dioxide 28 22 - 31 mmol/L [facility] Anion Gap 14 5 - 15 mmol/L [facility] Calcium 9.4 8.5 - 10.5 mg/dL [facility] Est Glomerular Filtration Rate >60 >=60 [facility] Comment: This estimated GFR (eGFR) value was calculated using the MDRD equation which has been validated on patients between the ages of 18 and 70. The MDRD should not be used to assess kidney function in patients < 18 years of age or in patients with extremes of body mass, or in patients with acute kidney failure. This value should be multiplied by 1.2 for patients. For further information please copy and paste the following links into your internet browser. [email or web address]/DHnkdep [email or web address] Blood specimen (specimen) 04/09/2016 11:57 AM EDT 04/09/2016 12:22 PM EDT Narrative Resulting Agency Comment Spec In Lab Matthew Melvin MD CHEMISTRY ORDERAB LES [facility] [place] [address] documented in this encounter Visit Diagnoses Diagnosis Hypokalemia Hypopotassemia documented in this encounter Care Teams Retail And Restaurant Associate Relationship Specialty Start Date End Date WawrzynkaitlinArlen nails ND PCP - General Naturopathic Medicine 04/09/16 [facility] [address] [address] [place] [address] Health PsychologistCommercial Announcer Medicine 03/26/11 documented as of this encounter
--- OUTSIDE RECORDS SUMMARY | 2024-05-27 02:33 | XMS_ITS | Encounter Summary ---
Author Organization [facility] Address [facility] [place] [address] Care Team Providers Care Java Solutions Architect Name Role Phone Arlen Ryan ND Primary Care Provider + Reason for Visit * Reason Onset Date Comments Medication Refill 12/18/2016 Encounter Details Date Type Department Care Team (Late st Contact Info) Description 12/18/2016 [place] [address] Emeka Hernandez Jr., MD [facility] [place] [address] Nephrolithiasis Social History Tobacco Use Types Packs/Day [...] documented as of this encounter Visit Diagnoses Diagnosis Nephrolithiasis Calculus of kidney documented in this encounter Care Teams Java Solutions Architect Relationship Specialty Start Date End Date Arlen Ryan ND PCP - General Naturopathic Medicine 04/09/16 [facility] [address] [address] [place] [address] [employer] Slabs SawyerExerciser Medicine 03/26/11 documented as of this encounter
--- OUTSIDE RECORDS SUMMARY | 2024-05-27 02:33 | XMS_ITS | Encounter Summary ---
Author Organization [facility] Address [facility] [address] [place] [address] Care Team Providers Care Supervisor Intelligence Analyst Name Role Phone Arlen Ryan ND Primary Care Provider + Reason for Visit * Reason Comments Nephrolithiasis Encounter Details Date Type Department Care Team (Late st Contact Info) Description 12/08/2017 10:30 AM EDT [place] [address] Emeka Hernandez Jr., MD [facility] [place] [address] Nephrolithiasis Social History Tobacco Use Types Packs/Day [...] Time Taken Comments Blood Pressure 120/69 12/08/2017 10:26 AM EDT Pulse 74 12/08/2017 10:26 AM EDT Temperature 36.8 ??C (98.3 ??F) 12/08/2017 10:26 AM E DT Respiratory Rate - - Oxygen Saturation 96% 12/08/2017 10:26 AM EDT Inhaled Oxygen Concentration - - Weight - - Height - - Body Mass Index - - documented in this encounter Patient Instructions * Patient Instructions* Emeka Hernandez Jr., MD - 12/08/2017 10:30 AM EDT The following information is a good reference guide on reducing and maintaining a low oxalate diet. Low Oxalate Diet Kidney stones are caused by a buildup of minerals in the urine. Calcium, oxalate (OX-uh-layt), and uric acid may lead to kidney stones in some people. A low- oxalate diet is for people who have calcium oxalate kidney stones. Cutting back on high-oxalate foods and salt (sodium) and drinking plenty ofwater may help prevent kidney stones from forming. Here are some important points to remember: Oxalates are found in a wide variety of foods. Foods that come from animals usually have little or no oxalate Drink plenty of fluids. Drink more than 8 cups of fluid every day. Your urine should be as clear aswater. If it isn???t, drink more fluids. To help prevent oxalate stones from forming, limit oxalates to 40 to 50 mg per day. Use the chart below as a guide. Low-oxalate foods have less than 2mg of oxalate per serving. You can eat as much of these foods as you like. Moderate-oxalate foods have 2 to 6 mg of oxalate per serving. You should eat no more than three of these foods per day. High Oxalate foods have more than 7mg of oxalate per serving. Avoid these foods. Low oxalate foods: Drinks Low oxalate Moderate Oxalate High Oxalate -apple juice -coffee (limit to 8oz/day) -any juice made from high-oxalate fruits -beer, bottled or canned -cola (limit to 12oz per day -beer, draft -cider -cranberry juice -chocolate, plain -distilled alcohol -grape juice -chocolate milk -lynnette naun -orange juice -cocoa -grapefruit juice -orangeade -coffee powder (instant) -lemon juice -Ovaltine -lemonade/limeade -tea, brewed (made without peel) -stony river juice -milk (skim, 2%, whole) -orange soda -pineapple -root beer -water -wine Dairy Low Oxalate Moderate Oxalate High Oxalate -milk (skim, 2%,whole) -none -chocolate milk -buttermilk -yogurt with allowed fruit -cheese For calcium restrictions, limit above (low oxalate) to one serving per day Meat Low Oxalate Moderate Oxalate High Oxalate -beef, silverman, pork -beef kidney -none -eggs -liver -fish/shellfish -poultry Meat Substitutes, Beans, Nuts and Seeds Low Oxalate Moderate Oxalate High Oxalate -eggs -garbanzo beans, canned - almonds -lentils -campos - baked beans canned -water chestnuts -split rosa elena,cooked - tomato sauce - cashews - green beans, waxed and dried - peanut butter - peanuts - pecans - sesame seeds - sunflower seeds - tofu (soybean curd) - walnuts Fats and Oils Low Oxalate Moderate Oxalate High Oxalate -all -none -none Fruit Low Oxalate Moderate Oxalate High Oxalate -apples, peeled -apples with peals -blackberries -avocado -apricots -black raspberries -bananas -black currants -blueberries -cantaloupe -cranberries, dried -red currants -casaba -grapefruit -dewberies -cherries, yordy -oranges -figs, dried -coconut -peaches -grapes, purple -cranberries, canned -pears -gooseberries -grapes, green -pineapple -kiwi -honeydew -plums -lemon peel -mangoes -prunes -stony river peel -nectarines -orange peel -papaya -red raspberries -raisins -rhubarb -watermelon -strawberries -tangerines -any juice made from above fruits Breads and Starches Low Oxalate Moderate Oxalate High Oxalate -bread -barley, cooked -Fig Newtons -breakfast cereals -corn bread -fruit cake -noodles, egg or -corn tortilla -spencer crackers Macaroni -cornmeal -grits, white corn -rice, white or wild -cornstarch -kamut -flour, white or wheat -marmalade -oatmeal -soybean crackers -rice, brown -wheat germ -Unsalted saltine or soda -Crackers -Spaghetti in tomato sauce -sponge cake Vegetables Low Oxalate Moderate Oxalate High Oxalate -acorn squash -asparagus -beans -alfalfa sprouts -artichokes -beets -cabbage -brussel sprouts -celery -caulifower -broccoli -chives -peas, frozen and fresh -carrots -collards -peppers, red -corn -dandelion -radishes -cucumbers, peeled -eggplant -turnips, roots -kohlrabi -escarole -zucchini -lettuce -kale -squash -campos beans -leeks -mushrooms -mustard greens -onions -okra -potatoes,white -parsley -peas, canned -peppers, green -snow peas -pokeweed -tomato, fresh -rutabagas -tomoato sauce -sorrel -spinach -summer squash -sweet potatoes -Belgian chard -tomato soup -watercress -yams Condiments Low Oxalate Moderate Oxalate High Oxalate -any not listed -basil, fresh -cinnamon, ground -malt, powder -parsley, raw -pepper -pepper, more than 1tsp/day -lynnette -soy sauce documented in this encounter Progress Notes * Emeka Hernandez Jr., MD - 12/08/2017 10:30 AM EDT HPI: Ms Ivey is a very pleasant 42 yo woman who returns for urologic follow up to the multi-disciplinary metabolic stone clinic . She has a history notable for hypercalciuric mixed calcium phosphateurolithiasis. Metabolic evaluation has been notable for hypercalciuria, borderline normal urinary citrate, isolated low volume and hyperoxaluria. She had reduced oxalate and sodium intake and was rest arted on HCTZ as well as amiloride by Dr Melvin. 24 hour urine reviewed today confirms continuing overall improvement in her metabolic profile. Her most recent surgical intervention for stone was left PCNL 02/01/2015, notable for left renal lower pole staghorn stone. Postop CT confirmed she had been rendered stone free. Follow up Ct in 07/2015confirmed she remained stone free. She is managed with 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 During first week of November, she noted left sided back pain radiating anterior, no associated hematuria, mild nausea, no fever, no gross hematuria, improved but not fully resolved. Current stone related meds: HCTZ (12.5mg/d) as per Dr Melvin urocit k 10meq bid as per Dr Melvin Amiloride per Dr eMlvin Review of Systems Constitution: Negative for fever. Gastrointestinal: Negative for abdominal pain. Genitourinary: Negative for flank pain (resolved). Past medical history: HTN, urolithiasis. Past surgical history: right ureteroscopy; Left PCNL Family history: no fam hx of stones Social History: no tobacco, social EtOH. Son Devendra Physical Exam Constitutional: She is oriented to person, place, and time. She appears well- developed and well-nourished. No distress. HENT: Head: Normocephalic and atraumatic. Cardiovascular: Normal rate. Pulmonary/Chest: Effort normal. Abdominal: Soft. She exhibits no distension. There is no tenderness. There is no rebound and no guarding. Genitourinary: Genitourinary Comments: Scant left low back and CVA tenderness to percussion on left Neurological: She is alert and oriented to person, place, and time. Skin: Skin is warm and dry. She is not diaphoretic. Psychiatric: She has a normal mood and affect. Her behavior is normal. Stone analysis: 60% Calcium phosphate (apatite); 30% Magnesium ammonium phosphate (struvite); 10% Calcium oxalate dihydrate Imaging studies: I independently reviewed the renal ultrasound from today. This reveals no evidenceof hydronephrosis, hydroureter, or new stones. U/A: no leuk esterase, nitrite, or heme Date of Collection: 07/13/15 02/06/17 Volume (L/day): 3.01 2.46 Calcium (mg/day): 321 168 Oxalate (mg/day): 33 29 Citrate (mg/day): 550 660 uric acid (gm/day): 0.489 0.02 pH: 6.95 7.487 sodium (mmol/day): 194 150 sulfate (mmol/day): 32 28 UUN (gm/day): 6.7 8.97 ss CaOx: 5.02 2.93 ss CaPhos: 2 1.53 ssUA: 0.489 0.02 Impression/Plan: hypercalciuric nephro We reviewed that her pain is of unclear etiology. Given absence of stones or hydronephrosis and normal u/a today, we discussed that it is less likely to be related to stone or infection. I offered CTto better evaluate, but she declines. She will contact us if pain increases/recurs. Regarding metabolic management of stones, she will meet with Dr Gregory today for nephrology consultation. She will collect 24h urine prior to next visit. Declines nutrition consult today. I reviewed low oxalate diet and provided her with oxalate content of foods handout. Plan repeat renal u/s and follow up in 9 months (ordered today), sooner prn. documented in this encounter Plan of Treatment Not on file documented as of this encounter Visit Diagnoses Diagnosis Nephrolithiasis Calculus of kidney documented in this encounter Care Teams Supervisor Intelligence Analyst Relationship Specialty Start Date End Date Arlen Ryan ND PCP - General Naturopathic Medicine 04/09/16 [facility] [address] [address] [place] [address] Certified Coatings InspectorCustoms And Immigration Officer Medicine 03/26/11 documented as of this encounter
--- OUTSIDE RECORDS SUMMARY | 2024-05-27 02:33 | XMS_ITS | Encounter Summary ---
Author Organization [facility] Address [facility] [address] [place] [address] Care Team Providers Care Bicycle Fitter Name Role Phone Arlen Ryan ND Primary Care Provider + Encounter Details Date Type Department Care Team (Latest Contact Info) Description 03/13/2020 11:25 AM EDT - 03/13/2020 11:59 PM EDT Hospital [place] [address] Sowmya Hernandez Jr., MD [facility] [place] [address] Nephrolithiasis Discharge Disposition: Home Social History Tobacco Use Types Packs/Day Years Used Date Smoking Tobacco: Never Smokeless Tobacco: Never Alcohol Use Standard Drinks/Week Comments Yes 0 (1 standard drink = 0.6 oz pur e alcohol) occasional Sex and Gender Information Value Date Recorded Sex Assigned at Not on file Gender Identity Not on file Sexual Orientation Not on file documented as of this encounter Medications at Time of Discharge Medication Sig Dispensed Refills Start Date End Date venlafaxine (Effexor) 25 mg Tablet Take 25 mg by mouth 3 times daily. fish oil-omega-3 fatty acids 1,000 mg Capsule Take 1 g by mouth daily. cholecalciferol, Vitamin D3, (Vitamin D-3) 125 mcg (5,000 unit) Tablet Take 5,000 Units by mouth. hydroCHLOROthiazide (HYDRODIURIL) 12.5 mg TabletIndications:Nephr olithiasis Take 2 tablets by mouth 2 times daily. 120 tablet 11 03/27/2017 potassium Citrate (UROCIT) 10 mEq (1,080 mg) Tablet Sustained ReleaseIndications:calc ium oxalate renal calculi,calcium phosphate renal calculi Take 1 tablet by mouth 3 times daily (with meals). Indications: Calcium Oxalate Renal Calculi, Calcium Phosphate Renal Calculi 270 tablet 3 12/18/2016 aMILoride (MIDAMOR) 5 mg TabletIndications:Nephr olithiasis,Hypokalemia Take 1 tablet by mouth daily. 90 tablet 3 04/09/2016 cetirizine (ZYRTEC) 10 mg Tablet Take 10 mg by mouth daily. SUMAtriptan (IMITREX) 100 mg tablet Take by mouth as needed. documented as of this encounter Plan of Treatment Not on file documented as of this encounter Procedures Procedure Name Priority Date/Time Associated Diagnosis Comments US RETROPERITONEAL COMPLETE Routine 03/13/2020 11:51 AM EDT Nephrolithiasis documented in this encounter Results * US Retroperitoneal Complete (03/13/2020 11:51 AM EDT) Anatomical Region Laterality Modality Abdomen Ultrasound 03/13/2020 11:4 9 AM EDT Impressions 03/13/2020 12:09 PM EDT 1. No evidence for nephrolithiasis. Unchanged appearance to the scarring in the RIGHT upper pole. The small LEFT nonobstructing no calculus is not identified currently. 2. Partially distended normal contour bladder. Thank you for letting us participate in the care of this patient. For questions regarding this report, please contact the number below. ?Laurie Rowland, Staff Physician Electronically Signed Final Report ?? 03/13/2020 12:08 pm Narrative 03/13/2020 12:09 PM EDT Renal ? (Signed Final 03/13/2020 12:08 pm) PATIENT INFO: ID #: ? [id number] ?: ??[birth year] (44 yrs)(F) Name: ? BARBI IVEY ?Visit Date: 03/13/2020 11:49 am PERFORMED BY: Performed By: ? Karen Arellano RDMS Attending: ?Kashif MILNER, Laurie Cooper Resident: ? Heber MILNER, Zoie Padron Referred By: ?SOWMYA HERNANDEZ JR Location: ? [place] SERVICE(S) PROVIDED: ??URETRO - Retroperitoneal Complete - [id number] ? [id number] INDICATIONS: ???stones, ? hydronephrosis RIGHT KIDNEY: Size (cm) ?L: ??9.5 Cortical Thickness: ?Normal Cortical Echogenicity: ?? Normal Hydronephrosis: ?No sonographic evidence LEFT KIDNEY: Size (cm) ?L: ??10.6 Cortical Thickness: ?Normal Cortical Echogenicity: ?? Normal Hydronephrosis: ?No sonographic evidence Comment: ?mild separation to renal pelvis. URINARY BLADDER: Pre-void (cm) ? L: ??2.7 ? AP: ??3.3 ? TV: ??7.0 Vol (ml): ?32.7 Comment: ?Partially distended, normal contour Procedure Note Laurie Rowland MD - 03/13/2020 Renal (Signed Final 03/13/2020 12:08 pm) PATIENT INFO: ID #: [id number] : [birth year] (44 yrs)(F) Name: BARBI IVEY Visit Date: 03/13/2020 11:49 am PERFORMED BY: Performed By: Karen Arellano RDMS Attending: Laurie Rowland MD Resident: Zoie Buck MD Referred By: SOWMYA HERNANDEZ JR Location: [place] SERVICE(S) PROVIDED: URETRO - Retroperitoneal Complete - [id number] INDICATIONS: ?stones, ? hydronephrosis RIGHT KIDNEY: Size (cm) L: 9.5 Cortical Thickness: Normal Cortical Echogenicity: Normal Hydronephrosis: No sonographic evidence LEFT KIDNEY: Size (cm) L: 10.6 Cortical Thickness: Normal Cortical Echogenicity: Normal Hydronephrosis: No sonographic evidence Comment: mild separation to renal pelvis. URINARY BLADDER: Pre-void (cm) L: 2.7 AP: 3.3 TV: 7.0 Vol (ml): 32.7 Comment: Partially distended, normal contour IMPRESSION 1. No evidence for nephrolithiasis. Unchanged appearance to the scarring in the RIGHT upper pole. The small LEFT nonobstructing no calculus is not identified currently. 2. Partially distended normal contour bladder. Thank you for letting us participate in the care of this patient. For questions regarding this report, please contact the number below. Electronically signed by: Laurie Rowland MD, [facility] ([phone]), at 03/13/2020 12:02 PM Laurie Rowland, Staff Physician Electronically Signed Final Report 03/13/2020 12:08 pm Sowmya Hernandez Jr., MD IMG US GEN ORDERAB LES documented in this encounter Visit Diagnoses Diagnosis Nephrolithiasis Calculus of kidney documented in this encounter Care Teams Bicycle Fitter Relationship Specialty Start Date End Date Arlen Ryan ND PCP - General Naturopathic Medicine 04/09/16 [facility] [address] [address] [place] [address] Sammying Machine OperatorSkein Drier Medicine 03/26/11 documented as of this encounter
--- OUTSIDE RECORDS SUMMARY | 2024-05-27 02:33 | XMS_ITS | Encounter Summary ---
Author [facility] [place] [address] Care Team Providers Care Carbonation Tester Name Role Phone Arlen Ryan ND Primary Care Provider + Reason for Visit * Reason Onset Date Comments Medication Refill 01/08/2017 Encounter Details Date Type Department Care Team (Late st Contact Info) Description 01/08/2017 Refill [place]ph[place] [address] Matthew Melvin MD [facility] [place] [address] Nephrolithiasis Social History Tobacco Use Types Packs/Day [...] kidney documented in this encounter Care Teams Carbonation Tester Relationship Specialty Start Date End Date Arlen Ryan ND PCP - General Naturopathic Medicine 04/09/16 [facility] [address] [address] [place] [address] Unit CoordinatorHighway Technician Medicine 03/26/11 documented as of this encounter
--- OUTSIDE RECORDS SUMMARY | 2024-05-27 02:33 | XMS_ITS | Encounter Summary ---
Author Organization [facility] Address [facility] Marib[address] mu[address] [place] [address] Care Team Providers Care Security Dispatcher Name Role Phone Arlen Ryan ND Primary Care Provider + Reason for Visit * Reason Comments Nephrolithiasis Encounter Details Date Type Department Care Team (Late st Contact Info) Description 02/11/2017 10:00 AM EDT Office [place] [address] Sowmya Hernandez Jr., MD [facility] [place] [address] Nephrolithiasis Social History Tobacco Use Types Packs/Day Years Used Date Smoking Tobacco: Never Smokeless Tobacco: Never Alcohol Use Standard Drinks/Week Comments Yes 0 (1 standard drink = 0.6 oz pur e alcohol) occasional Sex and Gender Information Value Date Recorded Sex Assigned at Not on file Gender Identity Not on file Sexual Orientation Not on file documented as of this encounter Progress Notes * Sowmya Hernandez Jr., MD - 02/11/2017 10:00 AM EDT HPI: Ms Ivey is a pleasant 41 yo woman who returns for urologic follow up to the multi-disciplinary metabolic stone clinic . She has a history notable for hypercalciuric mixed calcium phosphate urolithiasis. Metabolic evaluation has been notable for hypercalciuria, borderline normal urinary citrate, isolated low volume and hyperoxaluria. She had reduced oxalate and sodium intake and was restarted on HCTZ as well as amiloride by Dr Melvin. 24 hour urine reviewed today confirms continuing overall improvement in her metabolic profile. Her most recent surgical intervention for stone was left PCNL 02/01/2015, notable for left renal lower pole staghorn stone. Postop CT confirmed she had been rendered stone free. Follow up Ct in 07/2015confirmed she remained stone free, although renal u/s 03/2016 suggested possible 4mm lower pole stone. She is managed with 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 In the interval since last visit, she has not had recurrent renal colic or stone passage. Today she feels well, denies medical complaints. Current stone related meds: HCTZ (12.5mg/d) as per Dr Melvin urocit k 10meq bid as per Dr Melvin Amiloride per Dr Melvin Review of Systems Constitution: Negative for chills and fever. Gastrointestinal: Negative for abdominal pain. Genitourinary: Negative for flank pain and hematuria. Past medical history: HTN, urolithiasis. Past surgical history: right ureteroscopy; Left PCNL Family history: no fam hx of stones Social History: no tobacco, social EtOH. Physical Exam Constitutional: She is oriented to person, place, and time. She appears well- developed and well-nourished. No distress. HENT: Head: Normocephalic and atraumatic. Cardiovascular: Normal rate. Pulmonary/Chest: Effort normal. Abdominal: Soft. She exhibits no distension. There is no tenderness. There is no rebound. Genitourinary: Genitourinary Comments: No CVA tenderness to percussion bilaterally Neurological: She is alert and oriented to person, place, and time. Skin: Skin is warm and dry. She is not diaphoretic. Psychiatric: She has a normal mood and affect. Her behavior is normal. Vitals reviewed. Stone analysis: 60% Calcium phosphate (apatite); 30% Magnesium ammonium phosphate (struvite); 10% Calcium oxalate dihydrate Imaging studies: I independently reviewed the renal ultrasound from today. This reveals no evidenceof hydronephrosis, hydroureter, or new stones. Date of Collection: 07/13/15 02/06/17 Volume (L/day): 3.01 2.46 Calcium (mg/day): 321 168 Oxalate (mg/day): 33 29 Citrate (mg/day): 550 660 uric acid (gm/day): 0.489 0.02 pH: 6.95 7.487 sodium (mmol/day): 194 150 sulfate (mmol/day): 32 28 UUN (gm/day): 6.7 8.97 ss CaOx: 5.02 2.93 ss CaPhos: 2 1.53 ssUA: 0.489 0.02 Impression/Plan: hypercalciuric nephrolithiasis - -currently stone free She is well, denies current complaints. She will continue current dietary interventions. Per Dr Melvin, she will have potassium citrate reduced in order to reduce urinary alkalinization. Plan repeat renal u/s in 1 year (ordered today), followup 1 year, sooner prn. documented in this encounter Plan of Treatment Not on file documented as of this encounter Results * US Retroperitoneal Complete (12/08/2017 8:55 AM EDT) Anatomical Region Laterality Modality Abdomen Ultrasound 12/08/2017 8:56 AM EDT Impressions 12/08/2017 9:19 AM EDT ??1. No evidence for nephrolithiasis.2. There remains areas of renal cortical scarring most prominent in the upperpole with upper pole thinning.3. No evidence for pelvic caliectasis or hydronephrosis. ? Laurie Rowlnad MD Electronically Signed Final Report ?? 12/08/2017 09:18 am Narrative 12/08/2017 9:19 AM EDT Renal ? (Signed Final 12/08/2017 09:18 am) PATIENT INFO: ID #: ? [id number] ?: ??[birth year] (42 yrs) Name: ? BARBI IVEY ?Visit Date: 12/08/2017 08:56 am PERFORMED BY: Performed By: ? Jennie Celaya RDMS Attending: ?Kashif MILNER, Laurie J. Referred By: ?SOWMYA HERNANDEZ Location: ? [place] SERVICE(S) PROVIDED: ??URETRO - Retroperitoneal Complete - [id number] ? [id number] INDICATIONS: ??? stones COMPARISON: US: 02/11/17 RIGHT KIDNEY: Size (cm) ?L: ??10.1 Cortical Thickness: ?mild upper pole thinning Cortical Echogenicity: ?? Normal Hydronephrosis: ?No sonographic evidence LEFT KIDNEY: Size (cm) ?L: ??10.9 Cortical Thickness: ?Upper pole thinning Cortical Echogenicity: ?? Normal Hydronephrosis: ?No sonographic evidence URINARY BLADDER: Pre-void (cm) ? L: ??1.7 ? AP: ??2.4 ? TV: ??4.9 Vol (ml): ?10.5 Comment: ?Partially distended, normal contour Procedure Note Laurie Rowland MD - 12/08/2017 Renal (Signed Final 12/08/2017 09:18 am) PATIENT INFO: ID #: [id number] : [birth year] (42 yrs) Name: BARBI IVEY Visit Date: 12/08/2017 08:56 am PERFORMED BY: Performed By: Jennie Celaya RDMS Attending: Laurie Rowland MD Referred By: SOWMYA HERNANDEZ JR Location: [place] SERVICE(S) PROVIDED: URETRO - Retroperitoneal Complete - [id number] INDICATIONS: ? stones COMPARISON: US: 02/11/17 RIGHT KIDNEY: Size (cm) L: 10.1 Cortical Thickness: mild upper pole thinning Cortical Echogenicity: Normal Hydronephrosis: No sonographic evidence LEFT KIDNEY: Size (cm) L: 10.9 Cortical Thickness: Upper pole thinning Cortical Echogenicity: Normal Hydronephrosis: No sonographic evidence URINARY BLADDER: Pre-void (cm) L: 1.7 AP: 2.4 TV: 4.9 Vol (ml): 10.5 Comment: Partially distended, normal contour IMPRESSION 1. No evidence for nephrolithiasis.2. There remains areas of renal cortical scarring most prominent in the upperpole with upper pole thinning.3. No evidence for pelvic caliectasis or hydronephrosis. Laurie Rowland MD Electronically Signed Final Report 12/08/2017 09:18 am Sowmya Hernandez Jr., MD IMG US GEN ORDERAB LES documented in this encounter Visit Diagnoses Diagnosis Nephrolithiasis Calculus of kidney Nephrolithiasis Calculus of kidney documented in this encounter Care Teams Security Dispatcher Relationship Specialty Start Date End Date Arlen Ryan ND PCP - General Naturopathic Medicine 04/09/16 [facility] [address] [address] [place] [address] Mechanical Facilities TechnicianAdvanced Manufacturing Engineer Medicine 03/26/11 documented as of this encounter
--- OUTSIDE RECORDS SUMMARY | 2024-05-27 02:33 | XMS_ITS | Encounter Summary ---
[place] [address] Care Team Providers Care Cylinder Dyer Name Role Phone Arlen Ryan ND Primary Care Provider + Reason for Visit * Reason Onset Date Comments Medication Refill 04/09/2016 Encounter Details Date Type Department Care Team (Late st Contact Info) Description 04/09/2016 Refill [place]ph[place] [address] Marlene Caputo MD [facility] [place] [address] Social History Tobacco Use Types Packs/Day Years [...] on filedocumented in this encounter Care Teams Cylinder Dyer Relationship Specialty Start Date End Date Arlen Ryan ND PCP - General Naturopathic Medicine 04/09/16 [facility] [address] [address] [place] [address] Director Global IntelligenceCensus Clerk Medicine 03/26/11 documented as of this encounter
--- OUTSIDE RECORDS SUMMARY | 2024-05-27 02:33 | XMS_ITS | Encounter Summary ---
Author Organization Formerly [facility] Address [facility] [address] [place] [address] Care Team Providers Care Tie Man Name Role Phone Arlen Ryan ND Primary Care Provider + Encounter Details Date Type Department Care Team (Latest Contact Info) Description 12/08/2017 8:19 AM EDT - 12/08/2017 11:59 PM EDT Hospital [place] [address] Sowmya Hernandez Jr., MD [facility] [place] [address] Nephrolithiasis Discharge Disposition: Home Social History Tobacco [...] Sig Dispensed Refills Start Date End Date hydroCHLOROthiazide (HYDRODIURIL) 12.5 mg TabletIndications:Neph rolithiasis Take 2 tablets by mouth 2 times daily. 120 tablet 11 03/27/2017 potassium Citrate (UROCIT) 10 mEq (1,080 mg) Tablet Sustained ReleaseIndications:dalia cium oxalate renal calculi,calcium phosphate renal calculi Take 1 tablet by mouth 3 times daily (with meals). Indications: Calcium Oxalate Renal Calculi, Calcium Phosphate Renal Calculi 270 tablet 3 12/18/2016 aMILoride (MIDAMOR) 5 mg TabletIndications:Neph rolithiasis,Hypokalemi a Take 1 tablet by mouth daily. 90 tablet 3 04/09/2016 cetirizine (ZYRTEC) 10 mg Tablet Take 10 mg by mouth daily. SUMAtriptan (IMITREX) 100 mg tablet Take by mouth as needed. potassium chloride SA (K-DUR;KLOR-CON) 10 mEq Tab Sust.Rel. Particle/CrystalIndica tions:Nephrolithiasis Take 1 tablet by mouth 2 times daily. 30 tablet 5 12/08/2017 03/13/2020 documented as of this encounter Plan of Treatment Not on file documented as of this encounter Procedures Procedure Name Priority Date/Time Associated Diagnosis Comments US RETROPERITONEAL COMPLETE Routine 12/08/2017 8:55 AM EDT Nephrolithiasis documented in this encounter Results * US Retroperitoneal Complete (12/08/2017 8:55 AM EDT) Anatomical Region Laterality Modality Abdomen Ultrasound 12/08/2017 8:56 AM EDT Impressions 12/08/2017 9:19 AM EDT ??1. No evidence for nephrolithiasis.2. There remains areas of renal cortical scarring most prominent in the upperpole with upper pole thinning.3. No evidence for pelvic caliectasis or hydronephrosis. ? Laurie Rowland MD Electronically Signed Final Report ?? 12/08/2017 09:18 am Narrative 12/08/2017 9:19 AM EDT Renal ? (Signed Final 12/08/2017 09:18 am) PATIENT INFO: ID #: ? [id number] ?: ??[birth year] (42 yrs) Name: ? BARBI IVEY ?Visit Date: 12/08/2017 08:56 am PERFORMED BY: Performed By: ? Jennie Celaya RDMS Attending: ?Kashif MILNER, Laurie Cooper Referred By: ?SOWMYA HERNANDEZ JR Location: ? [place] SERVICE(S) PROVIDED: ??URETRO - Retroperitoneal Complete - [id number] ? [id number] INDICATIONS: ??? stones COMPARISON: US: 02/11/17 RIGHT [...] 12/08/2017 09:18 am) PATIENT INFO: ID #: [id number] : [birth year] (42 yrs) Name: BARBI IEVY Visit Date: 12/08/2017 08:56 am PERFORMED BY: Performed By: Jennie Celaya RDMS Attending: Laurie Rowland MD Referred By: SOWMYA HERNANDEZ JR Location: [place] SERVICE(S) PROVIDED: URETRO - Retroperitoneal Complete - [id number] INDICATIONS: ? stones COMPARISON: US: 02/11/17 RIGHT [...] 12/08/2017 09:18 am [facility]a Hernandez Jr., [facility] ORDERAB LES documented in this encounter Visit Diagnoses Diagnosis Nephrolithiasis Calculus of kidney documented in this encounter Care Teams Tie Man Relationship Specialty Start Date End Date Arlen Ryan ND PCP - General Naturopathic Medicine 04/09/16 [facility] [address] [address] [place] [address] Saw SetterMachine Tool Dresser Medicine 03/26/11 documented as of this encounter
--- OUTSIDE RECORDS SUMMARY | 2024-05-27 02:33 | XMS_ITS | Encounter Summary ---
[place] [address] Care Team Providers Care Clinical Resource Manager Name Role Phone Arlen Ryan ND Primary Care Provider + Reason for Visit * Reason Onset Date Comments Medication Refill 03/27/2017 Encounter Details Date Type Department Care Team (Late st Contact Info) Description 03/27/2017 Refill Nephrology [place] [address] Fran Dhillon, [facility] [place] [address] Nephrolithiasis Social History Tobacco Use Types Packs/Day [...] kidney documented in this encounter Care Teams Clinical Resource Manager Relationship Specialty Start Date End Date Arlen Ryan ND PCP - General Naturopathic Medicine 04/09/16 [facility] [address] [address] [place] [address] Molded Rubber Goods CutterVending Machine Mechanic Medicine 03/26/11 documented as of this encounter
--- OUTSIDE RECORDS SUMMARY | 2024-05-27 02:33 | XMS_ITS | Encounter Summary ---
Author Organization [facility] Address [facility] Maribeth muñoz [place] [address] Care Team Providers Care Senior Regulatory Affairs Specialist Name Role Phone Arlen Ryan ND Primary Care Provider + Encounter Details Date Type Department Care Team (Late st Contact Info) Description 07/27/2017 [place] [phone] Emeka Hernandez Jr., MD [facility] [place] [address] Social History Tobacco Use Types Packs/Day Years [...] encounter Miscellaneous Notes * Telephone Encounter - Davie Houser RN - 07/27/2017 3:37 PM EST Verified patient name and date of Spoke with the pt who says that she has been having issues with her potassium being on the low sideand her PCP advising her to make a follow-up appointment with Dr Hernandez to discuss this and her diet.Pt transferred to [facility] to schedule an appointment. documented in this encounter Plan of Treatment Not on file documented as of this encounter Visit Diagnoses Not on filedocumented in this encounter Care Teams Senior Regulatory Affairs Specialist Relationship Specialty Start Date End Date Arlen Ryan ND PCP - General Naturopathic Medicine 04/09/16 [facility] [address] [address] [place] [address] Senior Management ConsultantDermatology Procedural Physician Medicine 03/26/11 documented as of this encounter
--- OUTSIDE RECORDS SUMMARY | 2024-05-27 02:33 | XMS_ITS | Encounter Summary ---
Author Organization [facility] Address [facility] [address] [address] Care Team Providers Care River Boat Captain Name Role Phone Arlen Ryan ND Primary Care Provider + Reason for Visit * Reason Comments Nephrolithiasis Encounter Details Date Type Department Care Team (Late st Contact Info) Description 03/13/2020 1:00 PM EDT Office [place] [address] Emeka Hernandez Jr., MD [facility] [place] [address] Nephrolithiasis Social History Tobacco Use Types Packs/Day [...] Pulse 95 03/13/2020 1:00 PM EDT Temperature - - Respiratory Rate 20 03/13/2020 1:00 PM EDT Oxygen Saturation - - Inhaled Oxygen Concentration - - Weight 74.8 kg (165 lb) 03/13/2020 1:00 PM EDT Height 162.6 cm (5' 4) 03/13/2020 1:00 PM EDT Body Mass Index 28.32 03/13/2020 1:00 PM EDT documented in this encounter Progress Notes * Emeka Hernandez Jr., MD - 03/13/2020 1:00 PM EDT Images from the original note were not included. HPI: Ms Ivey is a very pleasant 44 yo woman who returns for urologic follow up to the multi-disciplinary metabolic stone clinic. She has a history notable for hypercalciuric mixed calcium phosphate urolithiasis. Metabolic evaluation has been notable for hypercalciuria, borderline normal urinary citrate, isolated low volume and hyperoxaluria. She had reduced oxalate and sodium intake and was restarted on HCTZ as well as amiloride by Dr Melvin. Most recent 24 hour urine (2017) demonstrated continued overall improvement in her metabolic profile. Her most recent surgical intervention for stone was left PCNL 02/01/2015, notable for left renal lower pole staghorn stone. Postop CT confirmed she had been rendered stone free. Follow up Ct in 07/2015confirmed she remained stone free. She is managed with 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 in the interval since her last visit of May 2019, she has been doing well from a urologic standpoint. She specifically denies witnessed stone passage or suspected renal colic. She notes occasional increased urinary frequency and urgency. She also notes low back pain that is bilateral as well as central. She occasionally has left-sided hip pain as well. She has been seeing a chiropractor forthis after having hip films which she reports were negative. She is repeated a 24-hour urine. She notes that she has not been routinely taking the potassium citrate as the co-pays have jumped dramatically in [place]. Current stone related meds: HCTZ (25mg/bid) as per Dr Melvin urocit k 10meq bid as per Dr Melvin (has been on hold) Amiloride 5mg daily per Dr Melvin REVIEW OF SYSTEMS 03/13/2020 Constitutional Weight gain, Fatigue, lack of energy, Hot flashes, Pain Ear / nose / throat / mouth None of the above Eyes None of the above Respiratory None of the above Cardiovascular None of the above Gastrointestinal Constipation Skin, hair Dry skin Musculoskeletal Joint stiffness, Back pain, Joint pain, Other symptoms with joints or muscles Neurological Headaches Hematologic / Lymphatic None of the above Genitourinary Frequent urination, Urinary incontinence Past medical history: HTN, urolithiasis. Past surgical history: right ureteroscopy; Left PCNL Family history: no fam hx of stones Social History: no tobacco, social EtOH. Son Devendra Physical Exam Constitutional: She is oriented to person, place, and time. She appears well- developed and well-nourished. No distress. HENT: Head: Normocephalic and atraumatic. Cardiovascular: Normal rate. Pulmonary/Chest: Effort normal. No respiratory distress. Abdominal: Soft. She exhibits no distension. There is no abdominal tenderness. There is no rebound and no guarding. Genitourinary: Genitourinary Comments: Mild bilateral CVA (as well as paraspinous) tenderness to percussion bilaterally Neurological: She is [...] from today. This reveals no evidenceof hydronephrosis, hydroureter or stone. 24 hour urine Impression/Plan: history of hypercalciuric nephrolithiasis, now without evident stone Hypercalciuria--resolved Hypocitraturia -- mildly decreased. We reviewed options including resumption of potassium citrate as well as alternate citrate preparations. Due to the cost she wishes to hold off on this. We discussed the role of lemon juice and lemonade therapy. She will add 3 to 4 ounces of lemon juice to 3 to4 L of water to consume daily. We will plan repeat 24-hour urine to assess its efficacy. As she has not been taking potassium citrate we will recheck BMP today to assess her current serum potassium. Back pain: We reviewed that her back pain is of unclear etiology and that it was been persistent. Absence of stones on u/s suggests against nephrolithiasis as source. She will contact us if pain increases/recurs. She declines nephrology and nutrition consults today. Plan repeat renal u/s and 24 hour urine and BMP in 1 year, sooner prn. With urinary frequency and urgency, we will collect a urine for urinalysis and urine culture. She will follow-up by phone regarding these results. documented in this encounter Plan of Treatment Not on file documented as of this encounter Procedures Procedure Name Priority Date/Time Associated Diagnosis Comments HC VENIPUNCTURE STAT 03/13/2020 1:48 PM EDT Nephrolithiasis HC URINALYSIS ROUTINE Routine 03/13/2020 1:38 PM EDT Nephrolithiasis HC URINE CULTURE Routine 03/13/2020 1:38 PM EDT Nephrolithiasis documented in this encounter Results * (ABNORMAL) Basic Metabolic Panel (non-fasting) (03/13/2020 1:48 PM EDT) Glucose 91 65 - 199 mg/dL [facility] Comment:Diabetes: >=200 mg/d L plus symptoms Blood Urea Nitrogen 14 8 - 18 mg/dL [facility] Creatinine 0.75 0.70 - 1.20 mg/dL [facility] Sodium 142 135 - 145 mmol/L [facility] Potassium 3.0(Criti dalia) 3.5 - 5.0 mmol/L [facility] Comment: Called by: OCTAVIO, Read back by: janina vazquez, Date/Time:03/13/20 14:41. Please note: ??Patients with WBC >100,000 may have falsely elevated Potassium levels. ??For accurate Potassium quantification in these patients send serum separator tube (gold top) for subsequent determinations. ??Contact the Clinical Chemistry Laboratory if there are any questions. Chloride 102 98 - 107 mmol/L [facility] Carbon Dioxide 31 22 - 31 mmol/L [facility] Anion Gap 9 5 - 15 mmol/L [facility] Calcium 9.5 8.5 - 10.5 mg/dL [facility] Est Glomerular Filtration Rate 96 >=60 mL/min/1. 73 m?? [facility] Comment: The eGFR was calculated using the CKD-EPI equation. As with all creatinine based estimates of kidney function, eGFR values calculated with the CKD-EPI equation are not accurate in patients with acute kidney failure, extremes of body mass or the acutely ill. [email or web address] eGFR 112 >=60 mL/min/1. 73 m?? [facility] Comment: The eGFR was calculated using the CKD-EPI equation. As with all creatinine based estimates of kidney function, eGFR values calculated with the CKD-EPI equation are not accurate in patients with acute kidney failure, extremes of body mass or the acutely ill. [email or web address]://Adap.[email or web address]/[email or web address] Blood specimen (specimen) 03/13/2020 1:48 PM EDT 03/13/2020 1:56 PM EDT Narrative Resulting Agency Comment Spec In Lab Emeka Hernandez Jr., MD CHEMISTRY ORDERABL ES [facility] [place] [address] * _Urinalysis with microscopic (03/13/2020 1:38 PM EDT) Glucose, Urine Dipstick Negative Negative mg/dL [facility] Protein, Urine Dipstick Negative Negative mg/dL [facility] Bilirubin, Urine Dipstick Negative Negative mg/dL [facility] Comment: Clinical correlation required for positive Urine Bilirubin results as false positive may occur with some drugs and drug related products. If a false positive is suspected a serum total bilirubin should be considered if clinically indicated. Urobilinogen, Urine Dipstick Normal Normal mg/dL [facility] pH, Urn (dipstick) 7.5 5.0 - 8.0 [facility] Blood, Urine Dipstick Negative Negative mg/dL [facility] Ketone, Urine Dipstick Negative Negative mg/dL [facility] Nitrite, Urine Dipstick Negative Negative [facility] Leukocytes, Urine Dipstick Negative Negative [facility] Appearance, Urine Dipstick Clear Clear [facility] Specific [place] Urine Automated 1.013 1.006 - 1.030 [facility] Color, Urine Dipstick Yellow Yellow [facility] RBC, Urine 2 0 - 4 /HPF [facility] WBC, Urine 0 0 - 5 /HPF [facility] Hyaline Casts, Urine 1 0 - 2 /LPF [facility] Urine specimen (specimen) 03/13/2020 1:38 PM EDT 03/13/2020 2:57 PM EDT Narrative Resulting Agency Comment Spec In Lab Emeka Hernandez Jr., MD URINE ORDERABLES Performing Organization Address [facility] Co de Phone Number [facility] [place] [address] * (ABNORMAL) Urine culture Clean Catch Urine (03/13/2020 1:38 PM EDT) Urine Culture 10,000-49,000 cfu/ml mixed mucosal sarita Note: Culture shows multiple bacterial species suggesting mucosal contamination. If symptoms continue to indicate urinary tract infection, submit a new specimen. (A) [facility] Urine specimen obtained by clean catch procedure (specimen) 03/13/2020 1:38 PM EDT 03/13/2020 3:57 PM EDT Narrative Resulting Agency Comment Spec In Lab Emeka Hernandez Jr., MD MICROBIOLOGY - GEN ERAL ORDERABLES Performing Organization Address City/[facility] Co de Phone Number [facility] [place] [address] documented in this encounter Visit Diagnoses Diagnosis Nephrolithiasis Calculus of kidney documented in this encounter Care Teams River Boat Captain Relationship Specialty Start Date End Date Arlen Ryan ND PCP - General Naturopathic Medicine 04/09/16 [facility] [address] [address] [place] [address] Accounting Manager CpaGrip Assembler Medicine 03/26/11 documented as of this encounter
--- OUTSIDE RECORDS SUMMARY | 2024-05-27 02:33 | XMS_ITS | Encounter Summary ---
Author Organization [facility] [place] [address] Care Team Providers Care Bloom Conveyor Operator Name Role Phone Arlen Ryan ND Primary Care Provider + Encounter Details Date Type Department Care Team (Late st Contact Info) Description 03/16/2020 [place] [phone] David Mcneill LPN Social History Tobacco Use Types Packs/Day Years [...] on filedocumented in this encounter Care Teams Bloom Conveyor Operator Relationship Specialty Start Date End Date Arlen Ryan ND PCP - General Naturopathic Medicine 04/09/16 [facility] [address] [address] [place] [address] Housing DirectorSleeve Wheel Maker Medicine 03/26/11 documented as of this encounter
--- OUTSIDE RECORDS SUMMARY | 2024-05-27 02:33 | XMS_ITS | Encounter Summary ---
Author Organization [facility] [place] [address] Care Team Providers Care Community Engagement Representative Name Role Phone Arlen Ryan ND Primary Care Provider + Encounter Details Date Type Department Care Team (Late st Contact Info) Description 02/22/2019 Orders [place] [id number] David Mcneill LPN Nephrolithiasis Social History Tobacco Use Types Packs/Day [...] this encounter Results * US Retroperitoneal Complete (05/10/2019 3:42 PM EDT) Anatomical Region Laterality Modality Abdomen Ultrasound 05/10/2019 3:40 PM EDT Impressions 05/10/2019 4:04 PM EDT ?? No collecting system dilation bilaterally. Right upper and left lower pole renal cortical scar. 4 mm left nonobstructing interpolar renal calculus. Thank you for letting us participate in the care of this patient. For questions regarding this report, please contact the number below. ? Sweetie Banks, Staff Physician Electronically Signed Final Report ?? 05/10/2019 04:03 pm Narrative 05/10/2019 4:04 PM EDT Renal ?(Signed Final 05/10/2019 04:03 pm) PATIENT INFO: ID #: ? [id number] ?: ??[birth year] (43 yrs) Name: ? BARBI IVEY ?Visit Date: 05/10/2019 03:40 pm PERFORMED BY: Performed By: ? Drea MARRUFO, ??Lyn Attending: ?Darren MILNER, Sweetie Mendoza Referred By: ?SOWMYA HERNANDEZ JR Location: ? [place] SERVICE(S) PROVIDED: ??URETRO - Retroperitoneal Complete - [id number] ? [id number] INDICATIONS: ??stones RIGHT KIDNEY: Size (cm) ?L: ??9.2 Cortical Thickness: ?Mild upper pole scarring Cortical Echogenicity: ?? Normal Hydronephrosis: ?No sonographic evidence LEFT KIDNEY: Size (cm) ?L: ??10.6 Cortical Thickness: ?Lower pole scarring Cortical Echogenicity: ?? Normal Hydronephrosis: ?No sonographic evidence Comment: ?Single non-obstructing renal calculi seen, mid pole ? measuring 4 mm. URINARY BLADDER: Pre-void (cm) ? L: ??2.8 ? AP: ??1.3 ? TV: ??4.2 Vol (ml): ?8.0 Comment: ?Partially distended, normal contour Procedure Note Sweetie Banks MD - 05/10/2019 Renal (Signed Final 05/10/2019 04:03 pm) PATIENT INFO: ID #: [id number] : [birth year] (43 yrs) Name: BARBI IVEY Visit Date: 05/10/2019 03:40 pm PERFORMED BY: Performed By: Lyn Shepard RDMS Attending: Sweetie Banks MD Referred By: SOWMYA HERNANDEZ Location: [place] SERVICE(S) PROVIDED: URETRO - Retroperitoneal Complete - [id number] INDICATIONS: stones RIGHT KIDNEY: Size (cm) L: 9.2 Cortical Thickness: Mild upper pole scarring Cortical Echogenicity: Normal Hydronephrosis: No sonographic evidence LEFT KIDNEY: Size (cm) L: 10.6 Cortical Thickness: Lower pole scarring Cortical Echogenicity: Normal Hydronephrosis: No sonographic evidence Comment: Single non-obstructing renal calculi seen, mid pole measuring 4 mm. URINARY BLADDER: Pre-void (cm) L: 2.8 AP: 1.3 TV: 4.2 Vol (ml): 8.0 Comment: Partially distended, normal contour IMPRESSION No collecting system dilation bilaterally. Right upper and left lower pole renal cortical scar. 4 mm left nonobstructing interpolar renal calculus. Thank you for letting us participate in the care of this patient. For questions regarding this report, please contact the number below. Sweetie Banks, Staff Physician Electronically Signed Final Report 05/10/2019 04:03 pm Sowmya Hernandez Jr., MD [facility] GEN ORDERAB LES documented in this encounter Visit Diagnoses Diagnosis Nephrolithiasis Calculus of kidney Nephrolithiasis Calculus of kidney documented in this encounter Care Teams Community Engagement Representative Relationship Specialty Start Date End Date NancyArlen villafana FIORELLA PCP - General Naturopathic Medicine 04/09/16 [facility] [address] [address] [place] [address] Child Day Care TeacherHuman Resources Recruiter Medicine 03/26/11 documented as of this encounter
--- OUTSIDE RECORDS SUMMARY | 2024-05-27 02:33 | XMS_ITS | Encounter Summary ---
Author Organization [facility] Address [facility] [place] [address] Care Team Providers Care Lining Cementer Name Role Phone Arlen Ryan ND Primary Care Provider + Encounter Details Date Type Department Care Team (Late st Contact Info) Description 06/02/2019 [place] [phone] Emeka Hernandez Jr., MD [facility] [place] [address] Social History Tobacco Use Types Packs/Day Years [...] encounter Miscellaneous Notes * Telephone Encounter - Benny Gordillo - 06/02/2019 9:36 AM EDT LMOM - Need to schedule [facility] appt in about 5 mo (Oct 2019) with renal ultrasound and review of 24 hrurine. documented in this encounter Plan of Treatment Not on file documented as of this encounter Visit Diagnoses Not on filedocumented in this encounter Care Teams Lining Cementer Relationship Specialty Start Date End Date Arlen Ryan ND PCP - General Naturopathic Medicine 04/09/16 [facility] [address] [address] [place] [address] Controller MechanicMainframe Consultant Medicine 03/26/11 documented as of this encounter
--- OUTSIDE RECORDS SUMMARY | 2024-05-27 02:33 | XMS_ITS | Encounter Summary ---
Author Organization [facility] Address [facility] [address] [place] [address] Care Team Providers Care Independent Living Advisor Name Role Phone Arlen Ryan ND Primary Care Provider + Encounter Details Date Type Department Care Team (Latest Contact Info) Description 02/11/2017 8:55 AM EDT - 02/11/2017 11:59 PM EDT Hospital [place] [address] Sowmya Hernandez Jr., MD [facility] [address] Nephrolithiasis Discharge Disposition: Home Social History Tobacco [...] Sig Dispensed Refills Start Date End Date potassium Citrate (UROCIT) 10 mEq (1,080 mg) [...] Take by mouth as needed. potassium chloride (K-DUR/KLOR-CON) 20 mEq Tab Sust.Rel. Particle/CrystalIndica tions:Hypokalemia,Kidn ey stones Take 1 tablet by mouth daily. 30 tablet 11 02/11/2017 12/08/2017 hydroCHLOROthiazide (HYDRODIURIL) 12.5 mg TabletIndications:Neph rolithiasis Take 2 tablets by mouth 2 times daily. 120 tablet 3 01/08/2017 03/27/2017 potassium chloride (K-DUR/KLOR-CON) 20 mEq Tab Sust.Rel. Particle/Crystal Take 1 tablet by mouth 2 times daily. Take 1 tablets 3 times a day on the first day only. 30 tablet 04/09/2016 12/08/2017 oxyCODONE (ROXICODONE) 5 mg Tablet Take 1-2 tablets by mouth every 4 hours as needed for Pain. 30 tablet 0 02/02/2015 12/08/2017 documented as of this encounter Plan of Treatment Not on file documented as of this encounter Procedures Procedure Name Priority Date/Time Associated Diagnosis Comments US RETROPERITONEAL COMPLETE Routine 02/11/2017 9:24 AM EDT Nephrolithiasis documented in this encounter Results * US Retroperitoneal Complete (02/11/2017 9:24 AM EDT) Anatomical Region Laterality Modality Abdomen Ultrasound 02/11/2017 9:20 AM EDT Impressions 02/11/2017 9:45 AM EDT ??1. ??Previously noted 4 mm nonobstructing right lower pole calculus notvisualized on today's exam.2. ??No new renal calculi. No hydronephrosis.I have personally reviewed the image(s) and the residents interpretation andagree with the findings, Sweetie Banks at 02/11/2017 9:37 AM ?Sweetie Banks MD Electronically Signed Final Report ?? 02/11/2017 09:44 am Narrative 02/11/2017 9:45 AM EDT Renal ? (Signed Final 02/11/2017 09:44 am) PATIENT INFO: ID #: ? [id number] ?: ??[birth year] (41 yrs) Name: ? BARBI IVEY ?Visit Date: 02/11/2017 09:20 am PERFORMED BY: Performed By: ? Maryam MARRUFO, ??Patrizia Attending: ?Darren MILNER, Sweetie Mendoza Resident: ? Ang Rivero DO Referred By: ?SOWMYA HERNANDEZ JR Location: ? [place] SERVICE(S) PROVIDED: ??URETRO - Retroperitoneal Complete - [id number] ? [id number] INDICATIONS: ??? stones COMPARISON: Ultrasound: 04/09/16 RIGHT KIDNEY: Size (cm) ?L: ??10.9 Cortical Thickness: ?Normal Cortical Echogenicity: ?? Normal Hydronephrosis: ?No sonographic evidence LEFT KIDNEY: Size (cm) ?L: ??11.2 Cortical Thickness: ?Upper pole cortical thinning Cortical Echogenicity: ?? Normal Hydronephrosis: ?No sonographic evidence URINARY BLADDER: Pre-void (cm) ? L: ??5.6 ? AP: ??6.6 ? TV: ??8.3 Vol (ml): ?160.6 Comment: ?Partially distended, normal contour Procedure Note Sweetie Banks MD - 02/11/2017 Renal (Signed Final 02/11/2017 09:44 am) PATIENT INFO: ID #: [id number] : [birth year] (41 yrs) Name: BARBI IVEY Visit Date: 02/11/2017 09:20 am PERFORMED BY: Performed By: Patrizia Francisco RDMS Attending: Sweetie Banks MD Resident: Ang Rivero DO Referred By: SOWMYA HERNANDEZ JR Location: [place] SERVICE(S) PROVIDED: URETRO - Retroperitoneal Complete - [id number] INDICATIONS: ? stones COMPARISON: Ultrasound: 04/09/16 RIGHT KIDNEY: Size (cm) L: 10.9 Cortical Thickness: Normal Cortical Echogenicity: Normal Hydronephrosis: No sonographic evidence LEFT KIDNEY: Size (cm) L: 11.2 Cortical Thickness: Upper pole cortical thinning Cortical Echogenicity: Normal Hydronephrosis: No sonographic evidence URINARY BLADDER: Pre-void (cm) L: 5.6 AP: 6.6 TV: 8.3 Vol (ml): 160.6 Comment: Partially distended, normal contour IMPRESSION 1. Previously noted 4 mm nonobstructing right lower pole calculus notvisualized on today's exam.2. No new renal calculi. No hydronephrosis.I have personally reviewed the image(s) and the residents interpretation andagree with the findings, Sweetie Banks at 02/11/2017 9:37 AM Sweetie Banks MD Electronically Signed Final Report 02/11/2017 09:44 am Sowmya Hernandez Jr., MD IMG US GEN ORDERAB LES documented in this encounter Visit Diagnoses Diagnosis Nephrolithiasis Calculus of kidney documented in this encounter Care Teams Independent Living Advisor Relationship Specialty Start Date End Date Arlen Ryan ND PCP - General Naturopathic Medicine 04/09/16 [facility] [address] [address] [place] [address] Money ExaminerIsotope Technologist Medicine 03/26/11 documented as of this encounter
--- OUTSIDE RECORDS SUMMARY | 2024-05-27 02:33 | XMS_ITS | Encounter Summary ---
Author Organization [facility] Address [facility] [address] [place] [address] Care Team Providers Care Architectural Wood Model Maker Name Role Phone Arlen Ryan ND Primary Care Provider + Encounter Details Date Type Department Care Team (Latest Contact Info) Description 05/10/2019 3:25 PM EDT - 05/10/2019 11:59 PM EDT Hospital En[place] [address] Sowmya Hernandez Jr., MD [facility] [place] [address] Nephrolithiasis Discharge Disposition: Home Social History Tobacco [...] Associated Diagnosis Comments US RETROPERITONEAL COMPLETE Routine 05/10/2019 3:42 PM EDT Nephrolithiasis documented in this encounter [...] 04:03 pm) PATIENT INFO: ID #: ? [id number] ?: ??[birth year] (43 yrs) Name: ? BARBI IVEY ?Visit Date: 05/10/2019 03:40 pm PERFORMED BY: Performed By: ? Drea MARRUFO, ??Lyn Attending: ?Darren MILNER, Sweetie Mendoza Referred By: ?SOWMYA HERNANDEZ Location: ? [place] SERVICE(S) PROVIDED: ??URETRO - Retroperitoneal Complete - [id number] ? [id number] INDICATIONS: ??stones RIGHT KIDNEY: Size (cm) ?L: [...] 05/10/2019 04:03 pm) PATIENT INFO: ID #: [id number] : 73 (43 yrs) Name: BARBI IVEY Visit Date: 05/10/2019 03:40 pm PERFORMED BY: Performed By: Lyn Shepard RDMS Attending: Sweetie Banks MD Referred By: SOWMYA HERNANDEZ Location: [place] SERVICE(S) PROVIDED: URETRO - Retroperitoneal Complete - [id number] INDICATIONS: stones RIGHT KIDNEY: Size (cm) L: [...] 05/10/2019 04:03 pm Sowmya Hernandez Jr., MD IMG US GEN ORDERAB LES documented in this encounter Visit Diagnoses Diagnosis Nephrolithiasis Calculus of kidney documented in this encounter Care Teams Architectural Wood Model Maker Relationship Specialty Start Date End Date Arlen Ryan ND PCP - General Naturopathic Medicine 04/09/16 [facility] [address] [address] [place] [address] Audit OfficerCoronary Clinical Specialist Medicine 03/26/11 documented as of this encounter
--- OUTSIDE RECORDS SUMMARY | 2024-05-27 02:33 | XMS_ITS | Encounter Summary ---
Author Organization [facility] Address [facility] [address] [place] [address] Care Team Providers Care Environmental Sampler Name Role Phone Arlen Ryan ND Primary Care Provider + Encounter Details Date Type Department Care Team (Latest Contact Info) Description 04/09/2016 9:14 AM EDT - 04/09/2016 11:59 PM EDT Hospital Encounter [place] [address] Sowmya Hernandez Jr., MD [facility] [address] Nephrolithiasis Discharge Disposition: Home Social History Tobacco [...] Sig Dispensed Refills Start Date End Date aMILoride (MIDAMOR) 5 mg TabletIndications:Neph rolithiasis,Hypokalemi a Take 1 tablet by mouth daily. 90 tablet 3 04/09/2016 cetirizine (ZYRTEC) 10 mg Tablet Take 10 mg by mouth daily. SUMAtriptan (IMITREX) 100 mg tablet Take by mouth as needed. potassium Citrate (UROCIT) 10 mEq (1,080 mg) Tablet Sustained ReleaseIndications:dalia cium oxalate renal calculi,calcium phosphate renal calculi Take 1 tablet by mouth 3 times daily (with meals). Indications: Calcium Oxalate Renal Calculi, Calcium Phosphate Renal Calculi 270 tablet 3 04/09/2016 12/18/2016 hydrochlorothiazide (HYDRODIURIL) 12.5 mg Tablet Take 2 tablets by mouth 2 times daily. 180 tablet 3 04/09/2016 11/24/2016 potassium chloride (K-DUR/KLOR-CON) 20 mEq Tab Sust.Rel. [...] Associated Diagnosis Comments US RETROPERITONEAL COMPLETE Routine 04/09/2016 10:04 AM EDT Nephrolithiasis documented in this encounter Results * US Retroperitoneal Complete (04/09/2016 10:04 AM EDT) Anatomical Region Laterality Modality Abdomen Ultrasound 04/09/2016 10:0 2 AM EDT Impressions 04/09/2016 1:47 PM EDT ??Ultrasound Dictation: 1. ??Previously demonstrated 5 mm nonobstructing left lower pole renal calculus is not visualized on today's exam. No sonographically evident left nephrolithiasis today. Trace left-sided pelvicaliectasis. 2. ??Possible interval 4 mm right lower pole nonobstructing renal calculus. No right collecting system dilatation. 3. ??Bladder unremarkable for degree of distention. ?Arlen Vaughn MD Electronically Signed Final Report ?? 04/09/2016 01:47 pm Narrative 04/09/2016 1:47 PM EDT Renal ?(Signed Final 04/09/2016 01:47 pm) PATIENT INFO: ID #: ? [id number] ?: ??[birth year] (40 yrs) Name: ? BARBI IVEY ?Visit Date: 04/09/2016 10:02 am PERFORMED BY: Performed By: ? Marilee Vyas RDMS Attending: ?Johana MILNER, Arlen Ruth Referred By: ?SOWMYA HERNANDEZ MD SERVICE(S) PROVIDED: ??URETRO - Retroperitoneal Complete - [id number] ? [id number] INDICATIONS: ??? stone growth COMPARISON: Renal/bladder ultrasound 10/09/15. RIGHT KIDNEY: Size (cm) ?L: ??9.9 Cortical Thickness: ?Normal Cortical Echogenicity: ?? Normal Hydronephrosis: ?No sonographic evidence Comment ? 4 mm possible lower pole renal calculus. : LEFT KIDNEY: Size (cm) ?L: ??11.3 Cortical Thickness: ?Thinning/scarring ??mid-upper pole Cortical Echogenicity: ?? Normal Hydronephrosis: ?Trace pelvicaliectasis Comment ? No renal calculi seen. : URINARY BLADDER: Right Urinary Jet: Visualized Left Urinary Jet: ??Visualized Pre-void (cm) ? L: ??6.3 ? AP: ??5.7 ? TV: ??9.1 Vol (ml): ?171.1 Comment ? Partially distended, normal contour : Procedure Note Arlen Vaughn MD - 04/09/2016 Renal (Signed Final 04/09/2016 01:47 pm) PATIENT INFO: ID #: [id number] : [birth year] (40 yrs) Name: BARBI IVEY Visit Date: 04/09/2016 10:02 am PERFORMED BY: Performed By: Marilee Vyas RDMS Attending: Arlen Vaughn MD Referred By: SOWMYA HERNANDEZ MD SERVICE(S) PROVIDED: URETRO - Retroperitoneal Complete - [id number] INDICATIONS: ? stone growth COMPARISON: Renal/bladder ultrasound 10/09/15. RIGHT KIDNEY: Size (cm) L: 9.9 Cortical Thickness: Normal Cortical Echogenicity: Normal Hydronephrosis: No sonographic evidence Comment 4 mm possible lower pole renal calculus. : LEFT KIDNEY: Size (cm) L: 11.3 Cortical Thickness: Thinning/scarring mid-upper pole Cortical Echogenicity: Normal Hydronephrosis: Trace pelvicaliectasis Comment No renal calculi seen. : URINARY BLADDER: Right Urinary Jet: Visualized Left Urinary Jet: Visualized Pre-void (cm) L: 6.3 AP: 5.7 TV: 9.1 Vol (ml): 171.1 Comment Partially distended, normal contour : IMPRESSION Ultrasound Dictation: 1. Previously demonstrated 5 mm nonobstructing left lower pole renal calculus is not visualized on today's exam. No sonographically evident left nephrolithiasis today. Trace left-sided pelvicaliectasis. 2. Possible interval 4 mm right lower pole nonobstructing renal calculus. No right collecting system dilatation. 3. Bladder unremarkable for degree of distention. Arlen Vaughn MD Electronically Signed Final Report 04/09/2016 01:47 pm Sowmya Hernandez Jr., MD IMG US GEN ORDERAB LES documented in this encounter Visit Diagnoses Diagnosis Nephrolithiasis Calculus of kidney documented in this encounter Care Teams Environmental Sampler Relationship Specialty Start Date End Date Arlen Ryan ND PCP - General Naturopathic Medicine 04/09/16 [facility] [address] [address] [place] [address] Machine Maintenance ServicerRegistered Sales Assistant Medicine 03/26/11 documented as of this encounter
--- OUTSIDE RECORDS SUMMARY | 2024-05-27 02:33 | XMS_ITS | Encounter Summary ---
Author Organization [facility] Address [facility] [address] [place] [address] Care Team Providers Care Staking Technician Name Role Phone Arlen Ryan ND Primary Care Provider + Reason for Visit * Reason Comments Nephrolithiasis Encounter Details Date Type Department Care Team (Late st Contact Info) Description 05/10/2019 4:30 PM EDT [place] [address] Sowmya Hernandez Jr., MD [facility] [place] [address] Nephrolithiasis Social History Tobacco Use Types Packs/Day [...] Sign Reading Time Taken Comments Blood Pressure 126/89 05/10/2019 4:28 PM EDT Pulse 110 05/10/2019 4:28 PM EDT Temperature - - Respiratory Rate - - Oxygen Saturation 98% 05/10/2019 4:28 PM EDT Inhaled Oxygen Concentration - - Weight - - Height - - Body Mass Index - - documented in this encounter Progress Notes * Amor Ca MD - 05/10/2019 4:30 PM EDT HPI: Ms Ivey is a very pleasant 43 yo woman who returns for urologic follow [...] 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 She denies any stone passages. She has had some bilateral flank pain, mild in severity, dull in nature, variable in duration, and completely resolved without specific intervention. She has not had any witnessed stone passage, UTI, or hematuria. She has not yet repeated a 24 hour urine. Current stone related meds: HCTZ (25mg/bid) as per Dr Melvin urocit k 10meq bid as per Dr Melvin Amiloride per Dr Melvin Review of Systems Constitution: Negative for fever. Gastrointestinal: Negative for abdominal pain. Genitourinary: Negative for flank pain. Past medical history: HTN, urolithiasis. Past surgical history: right ureteroscopy; Left PCNL Family history: no fam hx of stones Social History: no tobacco, social EtOH. Son Devendra Physical Exam Constitutional: She is oriented to person, place, and time. She appears well- developed and well-nourished. No distress. HENT: Head: Normocephalic and atraumatic. Pulmonary/Chest: Effort normal. No respiratory distress. Abdominal: Soft. She exhibits no distension. There is no tenderness. There is no rebound and no guarding. Genitourinary: Genitourinary Comments: No CVA tenderness to [...] ultrasound from today. This reveals no evidenceof hydronephrosis. She has a left 4mm non-obstructing stone. Date of Collection: 07/13/15 02/06/17 Volume (L/day): 3.01 2.46 Calcium (mg/day): 321 168 Oxalate (mg/day): 33 29 Citrate (mg/day): 550 660 uric acid (gm/day): 0.489 0.02 pH: 6.95 7.487 sodium (mmol/day): 194 150 sulfate (mmol/day): 32 28 UUN (gm/day): 6.7 8.97 ss CaOx: 5.02 2.93 ss CaPhos: 2 1.53 ssUA: 0.489 0.02 Impression/Plan: hypercalciuric nephro We reviewed that her pain is of unclear etiology and that it was present at her last visit. We again offered CT to better evaluate, but she declines. She will contact us if pain increases/recurs. Possible left renal stone--We reviewed management options, including watchful waiting, shock wave lithotripsy, and ureteroscopy. We discussed the relative risks, benefits, stone-free success rate, and limitations of each. For now she declines surgical intervention and is content to monitor. We willthus plan 6 month follow up with renal ultrasound, sooner prn. She has been instructed to call or return in the interval if new signs or symptoms of stone passage/renal colic should develop. Regarding metabolic management of stones, she will meet with Dr Real today for nephrology consultation. She will collect 24h urine prior to next visit. Declines nutrition consult today. Plan repeat renal u/s and 24 hour urine and BMP and follow up in 3 months, sooner prn. STAFF ADDENDUM: I saw and examined Cecile Ivey with Dr. Ca, have independently reviewed her u/s, and concur with history, exam, impression, and plan as noted. SOWMYA HERNANDEZ JR, MD * Sowmya Hernandez Jr., MD - 05/10/2019 4:30 PM EDT I saw and examined Cecile Ivey with Dr. Ca and have independently reviewed her imagingstudies. I agree with history, exam, impression, and plan as noted. Ultrasound shows left non obstructing 4mm mid-renal stone. We reviewed mgmt options and she opts to simply monitor. We discussed role of updating 24h urine, with which she would like to proceed. I ordered repeat 24hurine and follow up renal u/s, and she will follow up in approximately 4-5 months, sooner if needed. documented in this encounter Plan of Treatment [...] 12:08 pm) PATIENT INFO: ID #: ? [id number] ?: ??[birth year] (44 yrs)(F) Name: ? CECILE IVEY ?Visit Date: 03/13/2020 11:49 am PERFORMED BY: Performed By: ? Karen Arellano RDMS Attending: ?Kashif MILNER, Laurie Cooper Resident: ? Heber MILNER, Zoie Padron Referred By: ?SOWMYA HERNANDEZ JR Location: ? [place] SERVICE(S) PROVIDED: ??URETRO - Retroperitoneal Complete - [id number] ? [id number] INDICATIONS: ???stones, ? hydronephrosis RIGHT KIDNEY: Size [...] 03/13/2020 12:08 pm) PATIENT INFO: ID #: [id number] : [birth year] (44 yrs)(F) Name: CECILE IVEY Visit Date: 03/13/2020 11:49 am PERFORMED BY: Performed By: Karen Arellano RDMS Attending: Laurie Rowland MD Resident: Zoie Buck MD Referred By: SOWMYA HERNANDEZ JR Location: [place] SERVICE(S) PROVIDED: URETRO - Retroperitoneal Complete - [id number] INDICATIONS: ?stones, ? hydronephrosis RIGHT KIDNEY: Size [...] this report, please contact the number below. Laurie Rowland, Staff Physician Electronically Signed Final Report 03/13/2020 12:08 pm Sowmya Hernandez Jr., MD [facility] GEN ORDERAB LES documented in this encounter Visit Diagnoses Diagnosis Nephrolithiasis Calculus of kidney Nephrolithiasis Calculus of kidney documented in this encounter Care Teams Staking Technician Relationship Specialty Start Date End Date AlisaAlex lopezFIORELLA pitt PCP - General Naturopathic Medicine 04/09/16 [facility] [address] [address] [place] [address] Package ReinspectorInsurance Job Titles Medicine 03/26/11 documented as of this encounter
--- OUTSIDE RECORDS SUMMARY | 2024-05-27 02:33 | XMS_ITS | Encounter Summary ---
Author Organization [facility] Address [facility] [address] mu[address] [address] Care Team Providers Care Vendor Management Consultant Name Role Phone Arlen Ryan ND Primary Care Provider + Encounter Details Date Type Department Care Team (Late st Contact Info) Description 04/09/2016 11:30 AM EDT [place] [address] Matthew Melvin MD [facility] [place] [address] Nephrolithiasis; Hypokalemia Social History Tobacco Use Types Packs/Day [...] Sign Reading Time Taken Comments Blood Pressure 114/77 04/09/2016 10:58 AM EDT Pulse 76 04/09/2016 10:58 AM EDT Temperature - - Respiratory Rate - - Oxygen Saturation - - Inhaled Oxygen Concentration - - Weight 86.2 kg (190 lb) 04/09/2016 10:58 AM EDT Height 162.6 cm (5' 4) 04/09/2016 10:58 AM EDT Body Mass Index 32.61 04/09/2016 10:58 AM EDT documented in this encounter Progress Notes * Marlene Caputo MD - 04/09/2016 11:30 AM EDT [facility] Nephrology/Metabolic renal stone Follow Up Barbi Ivey [id number] 1975 ID: 40 y.o. female for follow up of nephrolithiasis. Water intake is adequate. PAST MEDICAL HX: Past Medical History Diagnosis Date ??? Hypertension ??? Kidney stone Lyme disease Hypokalemia Subjective: There is no flank pain, back pain, belly pain, hematuria. ROS: -no fever, chills, night sweats -no headache, blurring of vision, diplopia -no dysphagia, hearing problems -no chest pain, palpitation, no NICHOLE, orthopnea -no cough or SOB -no abdominal pain, nausea, vomiting or diarrhea -no rash -no neuropathy -no LE swelling -no change in mood -no heat or cold intolerance Medications: Prior to Admission medications Medication Sig Start Date End Date Taking? Authorizing Provider hydrochlorothiazide (HYDRODIURIL) 12.5 mg Tablet Take 1 tablet by mouth 2 times daily. 10/09/15 Yes Matthew Melvin MD potassium Citrate (UROCIT) 10 mEq (1,080 mg) Tablet Sustained Release Take 2 tablets by mouth 2 times daily (with meals). Indications: Calcium Oxalate Renal Calculi, Calcium Phosphate Renal Calculi 10/09/15 Yes Matthew Melvin MD cetirizine (ZYRTEC) 10 mg Tablet Take 10 mg by mouth daily. Yes PROVIDER, HISTORICAL oxyCODONE (ROXICODONE) 5 mg Tablet Take 1-2 tablets by mouth every 4 hours as needed for Pain. 02/02/15 Yes Sweetie English PA SUMAtriptan (IMITREX) 100 mg tablet Take by mouth as needed. Yes PROVIDER, HISTORICAL amiloride (MIDAMOR) 5 mg tablet Take 1 tablet by mouth daily. 03/16/13 Yes Matthew Melvin MD Allergies / ADRs: Allergies Allergen Reactions ??? Adhesive Dermatitis Rash and blisters. Fine with paper tape ??? Lisinopril Other (See Comments) hypotension ??? Penicillins Hives PHYSICAL EXAM: Vitals: 04/09/16 1058 BP: 114/77 Pulse: 76 Gen - AAO x 3 in NAD Skin - No rash HEENT - Moist mucous membranes Chest: Lungs clear to auscultation, no wheezes/ rhonchi/ crackles. Heart - S1/S2 normal, no murmur, gallop, or rub. JVP not elevated. Abd - Soft. + BS. No bruit. Non tender. No organomegaly. Ext - Warm. No cyanosis. No dependent edema. Labs/ Imagin03/31/2016: 24 hour urine collection Vol 24; 2.24 SS Ca Ox 6.61 Ca 24: 260 Ox 24 Cit: 581 SS CaP : 3.06 PH: 7.09 SS UA: 0.03 UA 24: 0.333 Impression/ Plan: Nephrolithiasis, calcium phosphate/magnesium ammonium phosphate/calcium oxalate, with risk factors hypercalciuria, hyperoxaluria, hypocitraturia, and high urine sodium. Hypercalciuria is better, as is urinary sodium. Plan: Decrease K citrate from 4 tablets to 3 a day Increase HCTZ from 12.5 daily to 25 mg PO BID Continue active rehydration Continue amiloride Continue low protein diet Check BMP today. Repeat K critical low 2.7. KCl ordered. Follow up with PCP in 2-3 days. Follow up: 6 months Seen and Discussed w/ Dr. Olegario Caputo MD Nephrology Fellow ROSANNE LOPEZ MD [address] [address] * Matthew Melvin MD - 04/09/2016 11:30 AM EDT The relevant details regarding Barbi Ivey were reviewed with Dr. Caputo. The assessment and planwere formulated in discussion with me and I agree with them as documented, with the following additions. I have seen and examined the patient, providing the lira components as outlined below. I agree with Dr. Caputo's exam findings. She had run out of amiloride a number of days ago. Serum potassium islow at 2.7 mmol/l. Dr. Caputo called her, had her resume amiloride, start KCl and decrease dose of potassium citrate. Repeat electrolytes to be checked early next week. documented in this encounter Plan of Treatment Not on file documented as of this encounter Procedures Procedure Name Priority Date/Time Associated Diagnosis Comments BASIC METABOLIC PANEL Routine 04/09/2016 11:57 AM EDT Hypokalemia documented in this encounter Results * (ABNORMAL) Basic Metabolic Panel (non-fasting) (04/09/2016 11:57 AM EDT) Glucose 87 65 - 199 mg/dL [facility] Comment:Diabetes: >=200 mg/d L plus symptoms Blood Urea Nitrogen 11 8 - 18 mg/dL [facility] Creatinine 0.73 0.70 - 1.20 mg/dL [facility] Comment: Please note that the pediatric reference intervals supplied above were not validated [place] [facility]. Results from pediatric patients should be interpreted in conjunction to the patient's age, height and muscle mass. Sodium 137 135 - 145 mmol/L [facility] Potassium 2.7(Criti dalia) 3.5 - 5.0 mmol/L [facility] Comment: Results rechecked-gisselle Called by: gisselle, Read back by: Dr. Cruz, Date/Time:04/09/16 13:14. Please note: ??Patients with WBC >100,000 may have falsely elevated Potassium levels. ??For accurate Potassium quantification in these patients send serum separator tube (gold top) for subsequent determinations. ??Contact the Clinical Chemistry Laboratory if there are any questions. Chloride 95(L) 98 - 107 mmol/L [facility] Carbon Dioxide 28 22 - 31 mmol/L [facility] Anion Gap 14 5 - 15 mmol/L [facility] Calcium 9.4 8.5 - 10.5 mg/dL [facility] Est Glomerular Filtration Rate >60 >=60 [facility] Comment: This estimated GFR (eGFR) value [...] the following links into your internet browser. [email or web address] Blood specimen (specimen) 04/09/2016 11:57 AM EDT 04/09/2016 12:22 PM EDT Narrative Resulting Agency Comment Spec In Lab Matthew Melvin MD CHEMISTRY ORDERAB LES [facility] [place] [address] documented in this encounter Visit Diagnoses Diagnosis Nephrolithiasis Calculus of kidney Hypokalemia Hypopotassemia documented in this encounter Care Teams Vendor Management Consultant Relationship Specialty Start Date End Date Arlen Ryan ND PCP - General Naturopathic Medicine 04/09/16 [facility] [address] [address] [place] [address] Research InternSite Safety Coordinator Medicine 03/26/11 documented as of this encounter
--- OUTSIDE RECORDS SUMMARY | 2024-05-27 02:33 | XMS_ITS | Encounter Summary ---
Author Organization [facility] Address [facility] [address] [place] [address] Care Team Providers Care Instructional Design Manager Name Role Phone Arlen Ryan ND Primary Care Provider + Encounter Details Date Type Department Care Team (Late st Contact Info) Description 05/10/2019 5:00 PM EDT [place] [address] La Real MD [facility] [place] [address] Nephrolithiasis; Hypertension, unspecified type; Hypokalemia Social History Tobacco Use Types Packs/Day [...] as of this encounter Progress Notes * La Real MD - 05/10/2019 5:00 PM EDT Images from the original note were not included. I had the pleasure of seeing your patient Barbi Ivey 1975 [id number] Chief Complaint: This is a multidisciplinary metabolic stone clinic visit for this 43 y.o. year oldman/ woman . ?? History of Present Illness/Recent events including relevant review of systems: Barbi Ivey reports that had an episode of L flankpain in November 2018. Pain is improved but not resolved. Renal US today shows single non-obstructing stone L mid pole and no hydronephrosis. Maintaining good water intake. Reports home BP well controlled ?? 43 year old woman with history of hypercalciuric mixed calcium phosphate urolithiasis. Metabolicevaluation has been notable for hypercalciuria, borderline normal urinary citrate, isolated low volume and hyperoxaluria. She had reduced oxalate and sodium intake and was restarted on HCTZ as well as amiloride by Dr Melvin. Please see ' note for detailed urologic history. Her most recent surgical intervention for stone was left PCNL 02/01/2015, notable for left renal lower pole staghorn stone. Postop CT confirmed she had been rendered stone free. Follow up Ct in 07/2015 confirmed sheremained stone free. ?? She is managed with 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24 hour urine reviewed today confirms continuing overall improvement in her metabolic profile. 24-hour urine studies most recent 01/2018(see details below). Will repeat 24 hour studies prior to next visit. Note adequate water intake, relatively low K Intake, possible need for further alkalinization ?? Hypokalemia with normal magnesium, relatively low K intake, 44 mEq/24 h ( 1700 mmol/24), with supplementary KCl and HCTZ + amiloride. Positive FH hypokalemia in mother. Kelvin:renin ratio normal 2012 (see below). Recommend Continue amiloride. Recommend increase dietary potassium intake ?? Hypertension currently unclear duration well controlled ?? UTI for many years, Frequent in her 30s ?? M2 with toxemia both pregnancies. Prematurity at 36 weeks Patient Active Problem List Diagnosis Code ??? Right shoulder pain M25.511 ??? Hypertension I10 ??? History of kidney stones Z87.442 ??? Hematuria R31.9 ??? Kidney stones N20.0 ??? Hypokalemia E87.6 Medications Current Outpatient Medications on File Prior to Visit Medication Sig Dispense Refill ??? potassium chloride SA (K-DUR;KLOR-CON) 10 mEq Tab Sust.Rel. Particle/Crystal Take 1 tablet by mouth 2 times daily. 30 tablet 5 ??? hydroCHLOROthiazide (HYDRODIURIL) 12.5 mg Tablet Take 2 tablets by mouth 2 times daily. 120 tablet 11 ??? potassium Citrate (UROCIT) 10 mEq (1,080 mg) Tablet Sustained Release Take 1 tablet by mouth 3 times daily (with meals). Indications: Calcium Oxalate Renal Calculi, Calcium Phosphate Renal Calculi 270 tablet 3 ??? aMILoride (MIDAMOR) 5 mg Tablet Take 1 tablet by mouth daily. 90 tablet 3 ??? cetirizine (ZYRTEC) 10 mg Tablet Take 10 mg by mouth daily. ??? SUMAtriptan (IMITREX) 100 mg tablet Take by mouth as needed. No current facility-administered medications on file prior to visit. Non-steroidal anti-inflammatory medications: None Past Medical History, Family and Social History Reviewed in CIS and/or paper chart Physical Exam Barbi Ivey appears well B/P 126/89 The oropharynx and neck are unremarkable There is no peripheral edema and no sacral edema. The chest is clear to auscultation posteriorly R = L. The heart sound are S1 plus S2 with no rubs, murmurs or gallops. The abdomen is soft and nontender with no masses or organomegaly appreciated. Laboratory and other data: Results for BARBI IVEY ( ) as of 05/10/2019 17:08 Ref. Range 01/11/2014 12:48 01/10/2015 11:37 02/01/2015 10:38 02/02/2015 03:30 04/09/2016 11:57 02/11/2017 11:08 12/08/2017 11:24 Sodium Latest Ref Range: 135 - 145 mmol/L 141 138 143 137 137 137 141 Potassium Latest Ref Range: 3.5 - 5.0 mmol/L 3.1 (L) 3.7 3.6 3.6 2.7 (CRIT) 3.4 (L) 3.4 (L) Chloride Latest Ref Range: 98 - 107 mmol/L 104 100 104 98 95 (L) 95 (L) 97 (L) CO2 Latest Ref Range: 22 - 31 mmol/L 21 (L) 24 24 25 28 28 30 Anion Gap Latest Ref Range: 5 - 15 mmol/L 16 (H) 14 15 14 14 14 14 BUN Latest Ref Range: 8 - 18 mg/dL 11 11 12 6 (L) 11 16 14 Creatinine Latest Ref Range: 0.70 - 1.20 mg/dL 0.79 0.71 0.68 (L) 0.63 (L) 0.73 0.78 0.71 eGFR Latest Ref Range: >=60 >60 >60 >60 >60 >60 >60 >60 Glucose Lvl Latest Ref Range: 65 - 199 mg/dL 97 91 117 123 87 89 93 Calcium Latest Ref Range: 8.5 - 10.5 mg/dL 8.8 8.7 8.1 (L) 8.9 9.4 9.2 9.3 Magnesium Latest Ref Range: 0.69 - 1.07 mmol/L 0.78 Results for BARBI IVEY ( ) as of 05/21/2019 07:40 Ref. Range 03/23/2013 08:05 Aldosterone Latest Ref Range: <=21 ng/dL 22 (H) Renin Activity Latest Units: ng/ml/hr 3.6 Radiology studies: Images personally reviewed. RIGHT KIDNEY: Size (cm) L: 9.2 Cortical Thickness: Mild upper pole scarring Cortical Echogenicity: Normal Hydronephrosis: No sonographic evidence ?? LEFT KIDNEY: Size (cm) L: 10.6 Cortical Thickness: Lower pole scarring Cortical Echogenicity: Normal Hydronephrosis: No sonographic evidence ?? Comment: Single non-obstructing renal calculi seen, mid pole measuring 4 mm. Diagnosis, Medical decision making and Recommendations: ?? 43 year old woman with history of hypercalciuric mixed calcium phosphate urolithiasis. Metabolicevaluation has been notable for hypercalciuria, borderline normal urinary citrate, isolated low volume and hyperoxaluria. She had reduced oxalate and sodium intake and was restarted on HCTZ as well as amiloride by Dr Melvin. Please see ' note for detailed urologic history. Her most recent surgical intervention for stone was left PCNL 02/01/2015, notable for left renal lower pole staghorn stone. Postop CT confirmed she had been rendered stone free. Follow up Ct in 07/2015 confirmed sheremained stone free. ?? She is managed with 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24 hour urine reviewed today confirms continuing overall improvement in her metabolic profile. 24-hour urine studies most recent 01/2018(see details below). Will repeat 24 hour studies prior to next visit. Note adequate water intake, relatively low K Intake, possible need for further alkalinization ?? Hypokalemia with normal magnesium, relatively low K intake, 44 mEq/24 h ( 1700 mmol/24), with supplementary KCl and HCTZ + amiloride. Positive FH hypokalemia in mother. Kelvin:renin ratio normal 2012 (see below). Recommend Continue amiloride. Recommend increase dietary potassium intake ?? Hypertension currently unclear duration well controlled ?? UTI for many years, Frequent in her 30s ?? M2 with toxemia both pregnancies. Prematurity at 36 weeks ?? I have asked the patient to have medications renewed by your office as needed. ?? Followup stone clinic per urology. Labs ordered via [employer] and eDH Thank you for involving me in the care of this interesting patient CC: Arlen Ryan ND @PCPADD@ documented in this encounter Plan of Treatment Not on file documented as of this encounter Visit Diagnoses Diagnosis Nephrolithiasis Calculus of kidney Hypertension, unspecified type Hypokalemia Hypopotassemia documented in this encounter Care Teams Instructional Design Manager Relationship Specialty Start Date End Date Arlen Ryan ND PCP - General Naturopathic Medicine 04/09/16 [facility] [address] [address] [place] [address] Hose CementerCommutator Tester Medicine 03/26/11 documented as of this encounter
--- OUTSIDE RECORDS SUMMARY | 2024-05-27 02:33 | XMS_ITS | Encounter Summary ---
Author Organization [facility] [address] [place] [address] Care Team Providers Care Airline Security Representative Name Role Phone Arlen Ryan ND Primary Care Provider + Reason for Visit * Reason Comments Kidney Stone Encounter Details Date Type Department Care Team (Late st Contact Info) Description 02/11/2017 10:30 AM EDT [place] [address] Matthew Melvin MD [facility] [place] [address] Kidney stones; Hypokalemia Social History Tobacco Use Types Packs/Day [...] Sign Reading Time Taken Comments Blood Pressure 126/83 02/11/2017 9:56 AM EDT Pulse 75 02/11/2017 9:56 AM EDT Temperature - - Respiratory Rate - - Oxygen Saturation - - Inhaled Oxygen Concentration - - Weight - - Height - - Body Mass Index - - documented in this encounter Progress Notes * Fran Dhillon, - 02/11/2017 10:30 AM EDT [facility] Nephrology/Hypertension Follow Up Barbi Ivey [id number] 1975 Patient seen in follow-up of nephrolithiasis. ID: 41 y.o. female who presents for follow-up at stone clinic due to nephrolithiasis. Previous composition of kidney stone was 60% CaPhos, 30% MagAmmoniumPhos, and 10% CaOx. Patient was started on Potassium Chloride on previous stone clinic visit (03/2016) due to profound serum hypokalemia (K 2.7), however this was discontinued by PCP due to normal serum K levels on outpatient labs. Patient also had K Citrate decreased due to increased urinary pH from QID --> TID. Patient describes that she is compliant with her meds, but will occasionally miss a dose of K citrate. Patient describes feelingwell and denies any current medical complaints this AM. Patient denies flank pain, hematuria, passage of stone or gravel in urine. Patent remains on both HCTZ and amiloride. Patient had 24hr urine performed prior last month prior to this clinic visit. Results show --> hypercalciuria, borderline normal urinary citrate, and hyperoxaluria. Imaging today shows resolution of previously noted right lower pole non-obstructing stone. PAST MEDICAL HX: Past Medical History: Diagnosis Date ??? Hypertension ??? Kidney stone ROS: Per HPI Medications: Prior to Admission medications Medication Sig Start Date End Date Taking? Authorizing Provider hydroCHLOROthiazide (HYDRODIURIL) 12.5 mg Tablet Take 2 tablets by mouth 2 times daily. 01/08/17 YesSchMatthew gibbons MD potassium Citrate (UROCIT) 10 mEq (1,080 mg) Tablet Sustained Release Take 1 tablet by mouth 3 times daily (with meals). Indications: Calcium Oxalate Renal Calculi, Calcium Phosphate Renal Calculi 12/18/16 Yes Emeka Hernandez Jr., MD aMILoride (MIDAMOR) 5 mg Tablet Take 1 tablet by mouth daily. 04/09/16 Yes Matthew Melvin MD cetirizine (ZYRTEC) 10 mg Tablet Take 10 mg by mouth daily. Yes PROVIDER, HISTORICAL SUMAtriptan (IMITREX) 100 mg tablet Take by mouth as needed. Yes PROVIDER, HISTORICAL potassium chloride (K-DUR/KLOR-CON) 20 mEq Tab Sust.Rel. Particle/Crystal Take 1 tablet by mouth 2 times daily. Take 1 tablets 3 times a day on the first day only. 04/09/16 Marlene Caputo MD oxyCODONE (ROXICODONE) 5 mg Tablet Take 1-2 tablets by mouth every 4 hours as needed for Pain. Patient not taking: Reported on 02/11/2017 02/02/15 Sweetie English PA Allergies / ADRs: Allergies Allergen Reactions ??? Adhesive Dermatitis Rash and blisters. Fine with paper tape ??? Lisinopril Other (See Comments) hypotension ??? Penicillins Hives PHYSICAL EXAM: Vitals: 02/11/17 0956 BP: 126/83 Pulse: 75 Gen - AAO x 3 in NAD Skin - No rash HEENT - Moist mucous membranes Chest: Lungs clear to auscultation, no wheezes/ rhonchi/ crackles. Heart - S1/S2 normal, no murmur, gallop, or rub. JVP not elevated. Abd - Soft. + BS. No bruit. Non tender. No organomegaly. Ext - Warm. No cyanosis. No dependent edema. Labs/ Imaging: Recent Results (from the past 24 hour(s)) Basic Metabolic Panel (non-fasting) Result Value Ref Range Glucose Lvl 89 65 - 199 mg/dL BUN 16 8 - 18 mg/dL Creatinine 0.78 0.70 - 1.20 mg/dL Sodium 137 135 - 145 mmol/L Potassium 3.4 (L) 3.5 - 5.0 mmol/L Chloride 95 (L) 98 - 107 mmol/L CO2 28 22 - 31 mmol/L Anion Gap 14 5 - 15 mmol/L Calcium 9.2 8.5 - 10.5 mg/dL Estimated GFR >60 >=60 24hr Urine Collection (01/2017) Vol 2.46 liters SSCaOx 2.93 Ca24 168 mg Ox24 29 mg Cit 660 mg SSCaP 1.53 pH 7.48 SSUA 0.02 UA24 0.478 g Renal U/S (02/11/2017): 1. Previously noted 4 mm nonobstructing right lower pole calculus notvisualized on today's exam 2. No new renal calculi. No hydronephrosis Assessment/ Plan: 41 y/o WF with a history of hypercalciuric mixed calcium phosphate urolithiasis remains symptom free and presents for routine follow-up Nephrolithiasis: -composition of kidney stones includes --> CaPhos/ Magnesium Ammonium Phos/ CaOx -repeat 24hr urine shows --> hypercalciuria, hyperoxaluria, borderline decreased urinary citrate, with mildly elevated dietary sodium when comparing to last study. Urine was more alkaline (which will increase risk of CaP stone formation) even with the decrease of K citrate from QID --> TID last clinic visit -recommend decreasing K citrate from TID --> BID -will need to repeat serum K --> and labs this AM showed that patient is hypokalemic with serum K of 3.4. Will start patient on 20mEq daily of KCl -continue current dosing of HCTZ (25mg BID) -will also continue amiloride --> especially in light of serum hypokalemia -recommend continued low Na diet Follow up --> RTC in 1 year with repeat 24hr urine Seen and Discussed w/ Dr. Olegario Dhillon, DO Nephrology Fellow [facility] [address], [place] [address] * Matthew Melvin MD - 02/11/2017 10:30 AM EDT The relevant details regarding Barbi Ivey were reviewed with Dr. Dhillon. The assessment and plan were formulated in discussion with me and I agree with them as documented, with the following additions. I have seen and examined the patient, providing the lira components as outlined below. I agreewith Dr. Dhillon's exam findings. Plans as outlined. documented in this encounter Plan of Treatment Not on file documented as of this encounter Procedures Procedure Name Priority Date/Time Associated Diagnosis Comments BASIC METABOLIC PANEL Routine 02/11/2017 11:08 AM EDT Hypokalemia Kidney stones documented in this encounter Results * (ABNORMAL) Basic Metabolic Panel (non-fasting) (02/11/2017 11:08 AM EDT) Glucose 89 65 - 199 mg/dL [facility] Comment:Diabetes: >=200 mg/d L plus symptoms Blood Urea Nitrogen 16 8 - 18 mg/dL [facility] Creatinine 0.78 0.70 - 1.20 mg/dL [facility] Comment: Please note that the pediatric reference intervals supplied above were not validated at [facility]. Results from pediatric patients should be interpreted in conjunction to the patient's age, height and muscle mass. Sodium 137 135 - 145 mmol/L [facility] Potassium 3.4(L) 3.5 - 5.0 mmol/L [facility] Comment: Please note: ??Patients with WBC >100,000 may have falsely elevated Potassium levels. ??For accurate Potassium quantification in these patients send serum separator tube (gold top) for subsequent determinations. ??Contact the Clinical Chemistry Laboratory if there are any questions. Chloride 95(L) 98 - 107 mmol/L [facility] Carbon Dioxide 28 22 - 31 mmol/L [facility] Anion Gap 14 5 - 15 mmol/L [facility] Calcium 9.2 8.5 - 10.5 mg/dL [facility] Est Glomerular Filtration Rate >60 >=60 [facility] Comment: This estimated GFR [...] the following links into your internet browser. [email or web address] Blood specimen (specimen) 02/11/2017 11:08 AM EDT 02/11/2017 11:11 AM EDT Narrative Resulting Agency Comment Spec In Lab Matthew Melvin MD CHEMISTRY ORDERAB LES [facility] [place] [address] documented in this encounter Visit Diagnoses Diagnosis Kidney stones Calculus of kidney Hypokalemia Hypopotassemia documented in this encounter Care Teams Airline Security Representative Relationship Specialty Start Date End Date Arlen Ryan ND PCP - General Naturopathic Medicine 04/09/16 [facility] [address] [address] [place] [address] Grocery Store ManagerParts Expediter Medicine 03/26/11 documented as of this encounter
--- OUTSIDE RECORDS SUMMARY | 2024-05-27 02:33 | XMS_ITS | Encounter Summary ---
Author Organization [facility] [place] [address] Care Team Providers Care Rebar Worker Name Role Phone Arlen Ryan ND Primary Care Provider + Reason for Visit * Reason Onset Date Comments Medication Refill 11/24/2016 Encounter Details Date Type Department Care Team (Late st Contact Info) Description 11/24/2016 Refill Nephrology [place] [address] Matthew Melvin MD [facility] [place] [address] Social History Tobacco Use Types Packs/Day Years [...] on filedocumented in this encounter Care Teams Rebar Worker Relationship Specialty Start Date End Date Arlen yRan ND PCP - General Naturopathic Medicine 04/09/16 [facility] [address] [address] [place] [address] Hoop Riveting Machine OperatorVp Treasurer Medicine 03/26/11 documented as of this encounter
--- OUTSIDE RECORDS SUMMARY | 2024-05-27 02:33 | XMS_ITS | Encounter Summary ---
Author Organization [facility] Address [facility] [place] [address] Care Team Providers Care Mud Jack Nozzle Worker Name Role Phone Arlen Ryan ND Primary Care Provider + Encounter Details Date Type Department Care Team (Late st Contact Info) Description 03/13/2020 1:30 PM EDT [place] [address] La Real MD [facility] [place] [address] PATIENT NOT SEEN Social History Tobacco Use Types Packs/Day Years [...] Progress Notes * La Real MD - 03/13/2020 1:30 PM EDT This patient was not seen in this encounter. documented in this encounter Plan of Treatment Not on file documented as of this encounter Visit Diagnoses Diagnosis DH PATIENT NOT SEEN documented in this encounter Care Teams Mud Jack Nozzle Worker Relationship Specialty Start Date End Date Arlen Ryan ND PCP - General Naturopathic Medicine 04/09/16 [facility] [address] [address] [place] [address] Occupational Therapist Home BasedWelding Robot Operator Medicine 03/26/11 documented as of this encounter
--- OUTSIDE RECORDS SUMMARY | 2024-05-27 02:34 | XMS_ITS | Encounter Summary ---
Author Organization [facility] Address [facility] [place] [address] Care Team Providers Care Saddle Maker Name Role Phone Jim Wei MD Primary Care Provider [phone] Encounter Details Date Type Department Care Team (Late st Contact Info) Description 07/12/2014 9:30 AM EST - 07/12/2014 11:59 PM [facility] Hospital Encounter [place] [address] Urolithiasis Social History Tobacco Use Types Packs/Day Years Used Date Smoking Tobacco: Never Alcohol Use Standard Drinks/Week Comments Yes 0 (1 standard drink = 0.6 oz pur e alcohol) occasional Sex and Gender Information Value Date Recorded Sex Assigned at Not on file Gender Identity Not on file Sexual Orientation Not on file documented as of this encounter Medications at Time of Discharge Medication Sig Dispensed Refills Start Date End Date SUMAtriptan (IMITREX) 100 mg tablet Take by mouth as needed. nitrofurantoin, macrocrystal-monohydrat e, (MACROBID) 100 mg Capsule Take 100 mg by mouth 2 times daily. 10/09/2015 metoprolol succinate (TOPROL-XL) 25 mg Tablet Sustained Release 24 hr Take 25 mg by mouth daily. 10/09/2015 potassium chloride (K-DUR/KLOR-CON) 20 mEq Tab Sust.Rel. Particle/Crystal Take 20 mEq by mouth 2 times daily. 02/01/2015 potassium Citrate (UROCIT) 10 mEq Tablet Sustained ReleaseIndications:Neph rolithiasis Take 1 tablet by mouth 3 times daily. 270 tablet 10 07/12/2014 10/09/2015 topiramate (TOPAMAX) 25 mg tablet Take 50 mg by mouth 2 times daily. 01/10/2015 amiloride (MIDAMOR) 5 mg tabletIndications:Nephr olithiasis,Hypokalemia Take 1 tablet by mouth daily. 90 tablet 3 03/16/2013 04/09/2016 hydrochlorothiazide (HYDRODIURIL) 12.5 mg tablet 12.5 MG = 1 Tablet(s), PO, Twice daily 04/18/2010 10/09/2015 documented as of this encounter Plan of Treatment Not on file documented as of this encounter Procedures Procedure Name Priority Date/Time Associated Diagnosis Comments US RETROPERITONEAL COMPLETE Routine 07/12/2014 10:23 AM EST Urolithiasis documented in this encounter Results * US retroperitoneal complete (07/12/2014 10:23 AM EST) Anatomical Region Laterality Modality Abdomen Ultrasound 07/12/2014 10:2 3 AM EST Narrative 07/12/2014 12:24 PM EST Renal ?(Signed Final 07/12/2014 12:24 ? pm) Patient Info ID #: ? [id number] ?: ??[birth year] (38 yrs) Name: ? BARBI Stephani IVEY ?Visit Date: 07/12/2014 10:21 am Performed By Performed By: ?George Singletary RDMS Associate: ? Reagan Goetz MD Attending: ? Arlen Vaughn MD Referred By: ? SOWMYA HERNANDEZ MD Service(s) Provided ??URETRO - Retroperitoneal Complete - [id number] ? [id number] Indications ??? new stones Comparison Renal/bladder ultrasound 01/11/14; noncontrast CT abdomen/pelvis 07/20/13. Right Kidney Size (cm) ?L: ??10.2 Cortical Thickness: ?Normal Cortical Echogenicity: ?? Normal Hydronephrosis: ?No sonographic evidence Comment: ?No renal calculi seen. Left Kidney Size (cm) ?L: ??12.0 Cortical Thickness: ?Normal Cortical Echogenicity: ?? Normal Hydronephrosis: ?No sonographic evidence Comment: ?6 mm mid pole stone visualized. Urinary Bladder Pre-void (cm) ? L: ??6.1 ? AP: ??2.1 ? TV: ??5.3 Vol (ml): ?35.5 Comment: ?Partially distended, normal contour Impression Ultrasound - ??Retroperitoneal Complete - Summary 1. ??6 mm non-obstructing renal calculus in the interpolar region of the left kidney, not seen on the prior 01/11/14 ultrasound, but similar in appearance to the CT from 07/20/2013. 2. ??Normal right kidney and bladder. I ??viewed the images and agree with the above interpretation. ?Arlen Vaughn MD Electronically Signed Final Report ?? 07/12/2014 12:24 pm Film and interpretation reviewed by the attending Procedure Note Arlen Vaughn MD - 07/12/2014 Renal (Signed Final 07/12/2014 12:24 pm) Patient Info ID #: [id number] : [id number] (38 yrs) Name: BARBI IVEY Visit Date: 07/12/2014 10:21 am Performed By Performed By: George Singletary RDMS Associate: Reagan Goetz MD Attending: Arlen Vaughn MD Referred By: SOWMYA HERNANDEZ MD Service(s) Provided URETRO - Retroperitoneal Complete - [id number] Indications ? new stones Comparison Renal/bladder ultrasound 01/11/14; noncontrast CT abdomen/pelvis 07/20/13. Right Kidney Size (cm) L: 10.2 Cortical Thickness: Normal Cortical Echogenicity: Normal Hydronephrosis: No sonographic evidence Comment: No renal calculi seen. Left Kidney Size (cm) L: 12.0 Cortical Thickness: Normal Cortical Echogenicity: Normal Hydronephrosis: No sonographic evidence Comment: 6 mm mid pole stone visualized. Urinary Bladder Pre-void (cm) L: 6.1 AP: 2.1 TV: 5.3 Vol (ml): 35.5 Comment: Partially distended, normal contour Impression Ultrasound - Retroperitoneal Complete - Summary 1. 6 mm non-obstructing renal calculus in the interpolar region of the left kidney, not seen on the prior 01/11/14 ultrasound, but similar in appearance to the CT from 07/20/2013. 2. Normal right kidney and bladder. I viewed the images and agree with the above interpretation. Arlen Vaughn MD Electronically Signed Final Report 07/12/2014 12:24 pm Film and interpretation reviewed by the attending Sowmya Hernandez Jr., MD IMG US GEN ORDERAB LES documented in this encounter Visit Diagnoses Diagnosis Urolithiasis Urinary calculus, unspecified documented in this encounter Care Teams Saddle Maker Relationship Specialty Start Date End Date Jim Wei MD [address] [place] [address] PCP - General 07/23/10 10/08/15 [facility] [address] [address] [place] [address] Hybrid Corn BreederProduction Tester Medicine 03/26/11 documented as of this encounter
--- OUTSIDE RECORDS SUMMARY | 2024-05-27 02:34 | XMS_ITS | Encounter Summary ---
Author Organization [facility] [place] [address] Care Team Providers Care Community Marketing Manager Name Role Phone Jim Wei MD Primary Care Provider [phone] Reason for Referral * Diagnostic Test (Routine) - Closed Specialty Diagnoses / Procedures Referred By Contac t Referred To Contact Radiology Diagnoses History of kidney stones Hematuria Procedures CT Abdomen & Pelvis Wo Contrast (GENERIC) Mahad Mccullough MD [facility] [place] [address] [facility] [place] [address] Referral ID Status Reason Start Date Expiration Date V isits Requested Visits Authorized [id number] Closed Specialty Service Requested 07/24/2015 10/22/2015 1 1 Reason for Visit * Diagnostic Test (Routine) - Closed Specialty Diagnoses / Procedures Referred By Contac t Referred To Contact Radiology Diagnoses History of kidney stones Hematuria Procedures CT Abdomen & Pelvis Wo Contrast (GENERIC) Mahad Mccullough MD [facility] [place] [address] [facility] [place] [address] Referral ID Status Reason Start Date Expiration Date V isits Requested Visits Authorized [id number] Closed Specialty Service Requested 07/24/2015 10/22/2015 1 1 Encounter Details Date Type Department Care Team (Latest Contact Info) Description 07/24/2015 1:55 PM EST - 07/24/2015 11:59 PM EST Hospital Encounter CT Scan at [facility] [place] [address] Emeka Hernandez Jr., MD [facility] [place] [address] History of kidney stones; Hematuria Discharge Disposition: Home Social History Tobacco Use [...] Sig Dispensed Refills Start Date End Date cetirizine (ZYRTEC) 10 mg Tablet Take 10 mg by mouth daily. SUMAtriptan (IMITREX) 100 mg tablet Take by mouth as needed. docusate sodium (COLACE) 100 mg Capsule Take 1 capsule by mouth 2 times daily as needed for Constipation. 02/02/2015 10/09/2015 oxyCODONE (ROXICODONE) 5 mg Tablet Take 1-2 tablets by mouth every 4 hours as needed for Pain. 30 tablet 0 02/02/2015 12/08/2017 tamsulosin (FLOMAX) 0.4 mg Capsule, Sust. Release 24 hr Take 1 capsule by mouth daily. 30 tablet 0 02/02/2015 10/09/2015 oxybutynin (DITROPAN) 5 mg Tablet Take 1 tablet by mouth 3 times daily. 30 tablet 0 02/02/2015 10/09/2015 nitrofurantoin, macrocrystal-monohydrat e, (MACROBID) 100 mg Capsule Take 100 mg by mouth 2 times daily. 10/09/2015 metoprolol succinate (TOPROL-XL) 25 mg Tablet Sustained Release 24 hr Take 25 mg by mouth daily. 10/09/2015 potassium Citrate (UROCIT) 10 mEq Tablet Sustained ReleaseIndications:Neph rolithiasis Take 1 tablet by mouth 3 times daily. 270 tablet 10 07/12/2014 10/09/2015 amiloride (MIDAMOR) 5 mg tabletIndications:Nephr olithiasis,Hypokalemia Take 1 tablet by mouth daily. 90 tablet 3 03/16/2013 04/09/2016 hydrochlorothiazide (HYDRODIURIL) 12.5 mg tablet 12.5 MG = 1 Tablet(s), PO, Twice daily 04/18/2010 10/09/2015 documented as of this encounter Plan of Treatment Not on file documented as of this encounter Procedures Procedure Name Priority Date/Time Associated Diagnosis Comments CT ABDOMEN AND PELVIS WO CONTRAST Routine 07/24/2015 2:15 PM EST History of kidney stones Hematuria documented in this encounter Results * CT Abdomen & Pelvis Wo Contrast (GENERIC) (07/24/2015 2:15 PM EST) Anatomical Region Laterality Modality Abdomen, Pelvis Computed Tomogra phy Impressions 07/24/2015 2:25 PM EST IMPRESSION: No hydronephrosis or urolithiasis. Narrative 07/24/2015 2:25 PM EST EXAMINATION: CT ABDOMEN AND PELVIS WO CONTRAST CLINICAL HISTORY: left flank pain and hematuria, assess for stones TECHNIQUE: Helical CT of the abdomen and pelvis was performed without the use of intravenous contrast. ??Multiplanar reformatted images were generated. COMPARISON: Ultrasound of the kidneys 04/09/[address] scan of the abdomen and pelvis 02/02/2015. FINDINGS: Right kidney/ureter: No collecting system dilation or calculi.. ? Left kidney/ureter: No collecting system dilation or calculi.. ? This examination is limited for the evaluation of solid organs and vasculature structures due to the lack of intravenous contrast. Unenhanced images of the liver, spleen, pancreas, and adrenal glands are within normal limits. Gallbladder: Unremarkable. Lymph Nodes: No lymphadenopathy. GI tract: No bowel dilatation, mural thickening or mesenteric inflammation. Osseous structures: No suspicious lesions. Procedure Note Alvarado Castellon MD - 07/24/2015 EXAMINATION: CT ABDOMEN AND PELVIS WO CONTRAST CLINICAL HISTORY: left flank pain and hematuria, assess for stones TECHNIQUE: Helical CT of the abdomen and pelvis was performed without theuse of intravenous contrast. Multiplanar reformatted images were generated. COMPARISON: Ultrasound of the kidneys 04/09/[address] scan ofthe abdomen and pelvis 02/02/2015. FINDINGS: Right kidney/ureter: No collecting system dilation or calculi.. Left kidney/ureter: No collecting system dilation or calculi.. This examination is limited for the evaluation of solid organs andvasculature structures due to the lack of intravenous contrast. Unenhanced images of the liver, spleen, pancreas, and adrenal glands arewithin normal limits. Gallbladder: Unremarkable. Lymph Nodes: No lymphadenopathy. GI tract: No bowel dilatation, mural thickening or mesentericinflammation. Osseous structures: No suspicious lesions. IMPRESSION IMPRESSION: No hydronephrosis or urolithiasis. Emeka Hernandez Jr., MD IMG CT ORDERABLES documented in this encounter Visit Diagnoses Diagnosis History of kidney stones Personal history of urinary calculi Hematuria Hematuria, unspecified documented in this encounter Care Teams Community Marketing Manager Relationship Specialty Start Date End Date Jim Wei MD [address] [place] [address] PCP - General 07/23/10 10/08/15 [facility] [address] [address] [place] [address] Instrument TesterDeputy Director Medicine 03/26/11 documented as of this encounter
--- OUTSIDE RECORDS SUMMARY | 2024-05-27 02:34 | XMS_ITS | Encounter Summary ---
Author Organization [facility] Address [facility] [place] [address] Care Team Providers Care Gear Inspector Name Role Phone Jim Wei MD Primary Care Provider [phone] Encounter Details Date Type Department Care Team (Late st Contact Info) Description 01/09/2015 [place] [address] Kourtney Clark MD [facility] [place] [address] Social History Tobacco Use Types Packs/Day Years Used Date Smoking Tobacco: Never Alcohol Use Standard Drinks/Week Comments Yes 0 (1 standard drink = 0.6 oz pur e alcohol) occasional Sex and Gender Information Value Date Recorded Sex Assigned at Not on file Gender Identity Not on file Sexual Orientation Not on file documented as of this encounter Miscellaneous Notes * Telephone Encounter - Lori Castle LPN - 01/09/2015 4:54 PM EDT Patient stated that she wanted her antibiotic called into [facility] in [place], [place]. documented in this encounter Plan of Treatment Not on file documented as of this encounter Visit Diagnoses Not on filedocumented in this encounter Care Teams Gear Inspector Relationship Specialty Start Date End Date Jim Wei MD [address] [place] [address] PCP - General 07/23/10 10/08/15 [facility] [address] [address] [place] [address] SensitometristMedical Receptionist Medicine 03/26/11 documented as of this encounter
--- OUTSIDE RECORDS SUMMARY | 2024-05-27 02:34 | XMS_ITS | Encounter Summary ---
Author Organization [facility] Address [facility] [place] [address] Care Team Providers Care Sprinkler Fitter Name Role Phone Jim Wei MD Primary Care Provider [phone] Encounter Details Date Type Department Care Team (Late st Contact Info) Description 02/01/2015 7:37 AM EDT Anesthesia Event [place] [address] Jocelynn Aguilar MD [facility] [place] [address] Yoav Arnett, [facility] [place] [address] Anesthesia Record Procedure Summary Procedure Name Responsible Anesthesiologist Anesthesia Start Time Anesthesia Stop Time NEPHROLITHOTOMY, (PCNL) PERCUTANEOUS, COMPLEX (EG STONE > 2CM) (WRVU 20.91) (Left: Flank) Jocelynn Aguilar MD 02/01/15 0737 02/01/15 1009 Events Date Time Event Comment 02/01/2015 0702 0737 AN Verify 0737 Start 0737 An Start Data 0740 An Induction 0742 An Intubation 0749 Anesthesia Ready 1001 Extubation/LMA Out To Delete (skip) the Extubation event, click the X below. 1001 an stop data 1009 Stop Meds Name Total fentaNYL 100 mcg IV Lidocaine 50 mg Propofol 250 mg Rocuronium 50 mg PHENYLephrine 80 mcg Ondansetron 8 mg Dexamethasone 8 mg Neostigmine 3 mg Glycopyrrolate 0.4 mg clindamycin (CLEOCIN) 600mg in dextrose 5% 50mL 600 mg gentamicin (GARAMYCIN) 82 mg in sodium c hloride 0.9% 102.05 mL 82 mg PHENYLephrine INF 3,830 mcg HYDROmorphone 1.2 mg * Agents Name O2 Air N2O Sevoflurane (et) * Blood No blood administrations on file. Lines, Drains, and Airways Type Details Placement Removal Incision 01/11/15; urethral meatus; cystoscopy; 04/28/22 (LDA cleanup utility RA#[id number]); 1715 (LDA cleanup utility RA#[id number]) 01/11/15 0000 by Patrizia Finney RN 04/28/22 1715 by Slim Simon Urethral Catheter 02/01/15; Urologic surgery, Surgery longer than 2 hours; Physician order; indwelling double lumen catheter; latex, silicone coated; 20; inserted at this facility (Inserted by Dr. Grayson. ); 1; 10; 10; none; drainage bag to dependent drainage; 02/02/15; 1220 02/01/15 0000 by Jana Her RN 02/02/15 1220 by Luis Gibbs RN Incision 02/01/15; flank; 04/28/22 (LDA cleanup utility RA#[id number]); 1715 (LDA cleanup utility RA#[id number]) 02/01/15 0000 by Jana Her RN 04/28/22 1715 by Slim Simon Nephrostomy Tube 02/01/15; left flank ; drainage bag to dependent drainage; 24 [place] Beverly Catheter Inserted ; 02/02/15; 0935 02/01/15 0000 by Jana Her RN 02/02/15 0935 by Evelyn Waters RN (RETIRED) Peripheral IV Line - Single Lumen 02/01/15; 0653; metacarpal vein right (top of hand); 18 gauge; Vilma Reilly RN; distraction, intradermal injection, tolerated well, appears comfortable; 0; 02/02/15; 1524 02/01/15 0653 by Shu Gallagher RN 02/02/15 1524 by Evelyn Waters RN ETT Mask Ventilation: Ea sy (1); ETT Type: Cuffed, Oral; ETT Size: 7.5 mm; Notes: Asleep, Pre-O2, Stylette; Attempts: 2; ETT Placement Verified By: Auscultation, Capnometry, Visual; Secured at Teeth: 22 cm; Inserted by: bryson. Digitial intubation; Removal Date: 02/01/15; Removal Time: 1001 02/01/15 0742 by Yoav Arnett DO 02/01/15 1001 by Yoav Arnett DO documented in this encounter Social History Tobacco Use Types Packs/Day Years Used Date Smoking Tobacco: Never Smokeless Tobacco: Never Alcohol Use Standard Drinks/Week Comments Yes 0 (1 standard drink = 0.6 oz pur e alcohol) occasional Sex and Gender Information Value Date Recorded Sex Assigned at Not on file Gender Identity Not on file Sexual Orientation Not on file documented as of this encounter OR Notes * Anesthesia Postprocedure Evaluation - Yoav Arnett DO - 02/01/2015 10:19 AM EDT Patient: Barbi Ivey Procedure(s) Performed: Procedure(s): NEPHROLITHOTOMY, (PCNL) PERCUTANEOUS, OVER 2CM PERCUTANEOUS INTRO GUIDE WIRE TO ACCESS RENAL PELVIS,AND OR URETER, W\DILATION CYSTO, REMOVAL OF STENT, FOREIGN BODY OR CALCULUS, SIMPLE CYSTOURETEROSCOPY, DIAGNOSTIC Actual Anesthetic: general Patient location: PACU Post-op pain: Adequate analgesia Post-op nausea: no nausea or vomiting Last Vitals: Filed Vitals: 02/01/15 1015 BP: 106/58 Pulse: 75 Temp: Resp: 18 Post-op cardiovascular and respiratory status: is stable Level of consciousness: awake, alert and oriented Complications: no apparent complications and tolerated the procedure well Fluid Status: normal * Anesthesia Preprocedure Evaluation - Yoav Arnett DO - 01/31/2015 2:13 PM EDT Pre-Anesthesia Evaluation for: Barbi Ivey a 39 y.o. female. Procedure(s): NEPHROLITHOTOMY, (PCNL) PERCUTANEOUS, OVER 2CM PERCUTANEOUS INTRO GUIDE WIRE TO ACCESS RENAL PELVIS,AND OR URETER, W\DILATION CYSTO, REMOVAL OF STENT, FOREIGN BODY OR CALCULUS, SIMPLE CYSTOURETEROSCOPY, DIAGNOSTIC Patient Active Problem List Diagnosis ??? Hypertension ??? History of kidney stones ??? Right shoulder pain Past Medical History Diagnosis Date ??? Hypertension ??? Kidney stone Past Surgical History Procedure Laterality Date ??? section X2 ??? Orthopedic surgery Foot ??? Kidney stone surgery Extraction via cystoscopy ??? Lithotripsy ??? Cystoscopy, insert ureteral stent Left 01/11/2015 CYSTO, STENT PLACEMENT performed by Emeka Hernandez Jr., MD at [facility] MA[facility] OR History Substance Use Topics ??? Smoking status: Never Smoker ??? Smokeless tobacco: Not on file ??? Alcohol Use: Yes Comment: occasional History Drug Use No Allergies Allergen Reactions ??? Adhesive ??? Lisinopril Other (See Comments) hypotension ??? Penicillins Hives Medications: MAR and/or home medications have been reviewed. Physical Exam: There were no vitals filed for this visit. There is no weight on file to calculate BMI. Airway Assessment: Mallampati: II TM distance: >3 FB Neck ROM: full Cardiovascular Assessment: Rhythm: regular Pulmonary Assessment: (-) wheezes Dental Assessment: [facility] Assessment: Patient is wearing No contact(s). IV access: Peripheral line Anesthesia Plan: ASA 2 general, with a(n) intravenous induction 39 yr old female with a PM Hx of HTN, and nephrolithiasis presents for PCNL. Pt. . Denies recent URI, denies GERD, denies CP/SOB, reports good functional tolerance (able to ambulate 2 FOS without problems), and is appropriately NPO. Previous anesthetic: Easy mask. Plan: GETA with standard ASA monitors The patient was informed of the risks of anesthesia, and consent was obtained. The risks of anesthesia include, but are not limited to, PONV, pain, post- operative agitation, endotracheal tube placement if necessary, and other rare but serious complications such as major organ damage, allergies, intraoperative awareness, and dental/lip trauma. Additional risk of of blindness due to positioning Region - Other Informed Consent: Anesthetic plan and risks discussed with patient. Plan discussed with attending. Misc. Assessment: documented in this encounter Plan of Treatment Not on file documented as of this encounter Visit Diagnoses Not on filedocumented in this encounter Administered Medications Inactive Administered Medications - up to 3 most recent administrations Medication Order MAR Action Action Date Dose Rate Site clindamycin (CLEOCIN) 600mg in dextrose 5% 50mL 600 mg, Intravenous, EVERY 8 HOURS, First dose on Nithya 02/01/15 at 0700, Until Discontinued, Administer over 20 Minutes, Day of Surgery (Day of Procedure), Indication for (Active or Suspected): Prophylaxis Given 02/01/2015 7:49 AM EDT 600 mg dexamethasone (DECADRON) injection PRN, Starting on Nithya 02/01/15 at 0933, Until Nithya 02/01/15 at 1019, Anesthesia Intra-op, Routine Given 02/01/2015 9:33 AM EDT 8 mg fentaNYL 50 mcg/mL multi-dose injection PRN, Starting on Nithya 02/01/15 at 0740, Until Nithya 02/01/15 at 1019, Pain, Anesthesia Intra-op, Routine Given 02/01/2015 7:40 AM EDT 100 mcg gentamicin (GARAMYCIN) 82 mg in sodium chloride 0.9% 102.05 mL 82 mg (1 mg/kg/dose ? 82 kg Order-specific weight), Intravenous, ONCE, 1 dose, On Nithya 02/01/15 at 0700, Administer over 60 Minutes, This medication may have an associated drug lab level. Please check for lab orders., Day of Surgery (Day of Procedure), Indication for (Active or Suspected): Prophylaxis Given 02/01/2015 7:49 AM EDT 82 mg glycopyrrolate (ROBINUL) multi-dose injection PRN, Starting on Nithya 02/01/15 at 0933, Until Nithya 02/01/15 at 1019, Anesthesia Intra-op, Routine Given 02/01/2015 9:33 AM EDT 0.4 mg HYDROmorphone (DILAUDID) injection PRN, Starting on Nithya 02/01/15 at 0901, Until Nithya 02/01/15 at 1019, Pain, Anesthesia Intra-op, Routine Given 02/01/2015 9:35 AM EDT 0.4 mg Given 02/01/2015 9:33 AM EDT 0.4 mg Given 02/01/2015 9:01 AM EDT 0.4 mg lidocaine (PF) (XYLOCAINE) 100 mg/5 mL (2 %) injection PRN, Starting on Nithya 02/01/15 at 0740, Until Nithya 02/01/15 at 1019, Anesthesia Intra-op, Routine Given 02/01/2015 7:40 AM EDT 50 mg neostigmine (PROSTIGMINE) multi-dose injection PRN, Starting on Nithya 02/01/15 at 0933, Until Nithya 02/01/15 at 1019, Anesthesia Intra-op, Routine Given 02/01/2015 9:33 AM EDT 3 mg ondansetron (ZOFRAN) injection PRN, Starting on Nithya 02/01/15 at 0933, Until Nithya 02/01/15 at 1019, Nausea, Anesthesia Intra-op, Routine Given 02/01/2015 9:33 AM EDT 8 mg PHENYLephrine (EVA-SYNEPHRINE) 20 mg in sodium chloride 250 mL (standard ADULT & Amanda greater than 20kg) infusion CONTINUOUS PRN, Starting on Nithya 02/01/15 at 0830, Until Nithya 02/01/15 at 1019, Anesthesia Intra-op, Routine Rate/Dose Change 02/01/2015 8:43 AM EDT 40 mcg/min 30 mL/hr New Bag 02/01/2015 8:30 AM EDT 30 mcg/min 22.5 mL/hr PHENYLephrine HCl in NS (PF) (EVA-SYNEPHRINE) 0.8 mg/10 mL (80 mcg/mL) multi-dose injection Syrg PRN, Starting on Nithya 02/01/15 at 0822, Until Nithya 02/01/15 at 1019, Anesthesia Intra-op, Routine Given 02/01/2015 8:27 AM EDT 40 mcg Given 02/01/2015 8:22 AM EDT 40 mcg propofol (DIPRIVAN) 10 mg/mL bolus injection (Anesthesia) PRN, Starting on Nithya 02/01/15 at 0740, Until Nithya 02/01/15 at 1019, Anesthesia Intra-op Given 02/01/2015 7:40 AM EDT 250 mg rocuronium (ZEMURON) multi-dose injection PRN, Starting on Nithya 02/01/15 at 0740, Until Nithya 02/01/15 at 1019, Anesthesia Intra-op, Routine Given 02/01/2015 7:40 AM EDT 50 mg documented in this encounter Care Teams Sprinkler Fitter Relationship Specialty Start Date End Date Jim Wei MD [address] [place] [address] PCP - General 07/23/10 10/08/15 [facility] [address] [address] [place] [address] Archival Studies ProfessorHealth Information Assistant Medicine 03/26/11 documented as of this encounter
--- OUTSIDE RECORDS SUMMARY | 2024-05-27 02:34 | XMS_ITS | Encounter Summary ---
Author Organization [facility] Address [facility] [address] [place] [address] Care Team Providers Care Maintenance Team Member Name Role Phone Jim Wei MD Primary Care Provider [phone] Encounter Details Date Type Department Care Team (Latest Contact Info) Description 01/11/2015 1:08 PM EDT - 01/11/2015 4:00 PM EDT Hospital Encounter [place] [address] Sowmya Ingram Jr., MD [facility] [place] [address] Discharge Disposition: Home Social History Tobacco Use [...] Sign Reading Time Taken Comments Blood Pressure 143/92 01/11/2015 3:50 PM EDT RUE Pulse 73 01/11/2015 3:50 PM EDT Temperature 36.4 ??C (97.5 ??F) 01/11/2015 2:33 PM ED T Respiratory Rate 16 01/11/2015 3:48 PM EDT Oxygen Saturation 98% 01/11/2015 3:50 PM EDT Inhaled Oxygen Concentration - - Weight 81.6 kg (180 lb) 01/11/2015 1:40 PM EDT Height 162.6 cm (5' 4.02) 01/11/2015 1:40 PM ED T Body Mass Index 30.88 01/11/2015 1:40 PM EDT documented in this encounter Discharge Instructions * Discharge Instructions* Kylee Westbrook RN - 01/11/2015 3:27 PM EDT POST ANESTHESIA INSTRUCTIONS Go home, rest, use caution on stairs. Change positions slowly. Do not smoke if you are alone. Diet light to regular as tolerated today. If nausea occurs start with clear liquids and progress slowly. No driving, operating machinery, alcoholic beverages and no important decisions for 24 hours. Monitor IV site for signs and symptoms of infection: increasing redness, swelling, foul drainage, if occurs contact M.D. Patients who have had endotrachial tubes (this tube, used by anesthesia department, is passed down your throat after you are asleep, to ensure safe air passage during your operation). A sore throat is normal due to the tube. Cold liquids or soothing lozenges will help ease the discomfort. The generalized muscle aches are due to the medication given to you just before the tube is inserted. As the medication wears off, you may develop muscle soreness, which usually goes away in 12-24 hours. * Patient Instructions* KenanJustin Rhianna - 01/11/2015 2:34 PM EDT Instructions following Cystoscopic Surgery Wound Care: None needed Activity: As tolerated by your comfort level. Urination: You will likely have a small amount of blood in your urine for the next several days, upto 10-14 days. This is normal; however, if you are passing large amounts of blood clots or are bleeding an unable to urinate please call our office at [phone] before 5PM or [phone] after hours. Ureteral Stent Patients: You have a ureteral stent in place. It is normal for it to cause some irritation in your bladder. You may feel that you need to urinate often or with urgency, also there may be irritation when you urinate. This is normal. If you cannot tolerate this irritation or if you have severe back or side pain, you should call our office [phone] before 5PM or [phone] afterhours. Stent removal: The stent will be exchanged at the time of your stone surgery, February 01. Call Doctor for: Please call if you have copious blood in your urine, severe back or side pain, pain not controlled by pain medications, persistent nausea and vomiting, or for any fevers greater [id number] F. The number for questions is [phone] before 5 PM weekdays and [phone] after 5 PM and weekends. Pain Medication: No driving for 8 hours after any dose of opioid pain medication if one was prescribed for you. You may use ibuprofen (motrin, advil) in addition to this medication if your pain is not totally controlled by the opioid. Follow-up: Stone surgery on February 01. documented in this encounter Medications at Time of Discharge [...] times daily. 30 tablet 0 02/02/2015 10/09/2015 oxyCODONE (ROXICODONE) 5 mg Tablet Take 1 tablet by mouth every 4 hours as needed for Pain. 30 tablet 0 01/11/2015 02/02/2015 tamsulosin (FLOMAX) 0.4 mg Capsule, Sust. Release 24 hr Take 1 capsule by mouth daily. 30 tablet 3 01/11/2015 02/02/2015 nitrofurantoin, macrocrystal-monohydrat e, (MACROBID) 100 mg Capsule [...] 04/18/2010 10/09/2015 documented as of this encounter H&P Notes * Justin Grayson - 01/11/2015 1:31 PM EDT Patient Name: Cecile Ivey Patient Age: 39 y.o. Birthdate: 1975 Admit date: 01/11/2015 Attending Physician: Sowmya Ingram Jr., MD No interval change from yesterday's H and P OK to proceed with stent documented in this encounter Miscellaneous Notes * Op Note - Sowmya Ingram Jr., MD - 01/11/2015 9:01 PM EDT [facility] Operative Note Patient Name: Cecile Ivey : [id number] MR#: [id number] Case Date: 01/11/2015 Surgeon: Surgeon(s) and Role: * Sowmya Ingram Jr., MD - Primary * Justin Grayson MD - Resident-Surgeon Chief Preoperative diagnosis: LEFT STAGHORN STONE Postoperative diagnosis: same Procedure(s): CYSTO, STENT PLACEMENT Anesthesia: General Findings: Large left renal stone on fluoroscopy Stent placed with out difficulty Complications: None Fluids: 400 mL Estimated Blood Loss: None Drains: 7 Fr variable ureteral stent Disposition: awakened from anesthesia, extubated and taken to the recovery room in a stable condition, having suffered no apparent untoward event. Condition: doing well without problems Operative Indications: Mrs. Ivey had a branched staghorn stone which was scheduled for definitive surgery in the form of PCNL February 01, 2015. She is quite symptomatic from the stone currently and presented for stent placement. Operative Description: After the patient gave informed consent she was taken to the Operating Room where she underwent general anesthesia, was placed in dorsal lithotomy position, prepped, draped and given IV antibiotics. Timeout was performed where no concerns were raised. We entered the bladder with a 30 degree scope identifying a normal bladder with no lesions, trabeculations or stones. She had orthotopic ureteral orifices. We intubated the left ureteral orifice with a Pollack catheter, we shot a mail sorter and delivery fluoroscopy which clearly identified a large stone in the collecting system, we advanced the Pollack up to 28 cm at which length it was in the collecting system. We performed a pyelogram to identify a non-hydronephrotic but highly branching collecting system. We then placed a GlideWire through the Pollack, removed the Pollack and then placed a 7 Sinhala variable stent under fluoroscopic assisted guidance. Drainage was observed and good curl in the bladder. We emptied the bladder and concluded the case. * Brief Op Note - Sowmya Ingram Jr., MD - 01/11/2015 2:36 PM EDT Brief Operative Note Patient Name: Cecile Ivey : [id number] MR#: [id number] Case Date: 01/11/2015 Surgeon: Surgeon(s) and Role: * Sowmya Ingram Jr., MD - Primary * Justin Grayson MD - Resident-Surgeon Chief Preoperative diagnosis: LEFT STAGHORN STONE Postoperative diagnosis: same Procedure(s): CYSTO, STENT PLACEMENT Anesthesia: General Findings: Large left renal stone on fluoroscopy Stent placed with out difficulty Complications: None Fluids: 400 mL Estimated Blood Loss: None Drains: 7 Fr variable ureteral stent Disposition: awakened from anesthesia, extubated and taken to the recovery room in a stable condition, having suffered no apparent untoward event. Condition: doing well without problems (Please see the Surgical Encounter Summary for any Implant and Specimen details pertinent to this patient.) documented in this encounter Plan of Treatment Pending Results Name Type Priority Associated Diagnoses Date /Time XR Fluoro OR c-arm storage only Imaging Routine 01/11/2015 3:03 PM EDT Scheduled Orders Name Type Priority Associated Diagnoses Orde r Schedule XR Fluoro OR c-arm storage only Imaging Routine Once PRN (for Ra diant use) for 1 Occurrences starting 01/11/2015 until 01/11/2015 documented as of this encounter Procedures Procedure Name Priority Date/Time Associated Diagnosis Comments URINE CULTURE Routine 01/11/2015 2:30 PM EDT CYSTO, STENT PLACEMENT (WRVU 2.82) Yes 01/11/2015 1:54 PM EDT LEFT STAGHORN STONE IMPLANTABLE DEVICES SCAN 01/11/2015 12:00 AM EDT documented in this encounter Results * Urine culture Cystoscopic Urine (01/11/2015 2:30 PM EDT) Urine Culture ? Patient Name: CECILE IVEY ? Ordered By: SOWMYA INGRAM JR ? MR#: [id number] ?LOC: ??SDP ? /Sex: ??1975 (39 years), ? Female ? PROCEDURE: Urine Culture ?SOURCE: U Cysto ? COLLECTED: 01/11/2015 14:30 ? STARTED: 01/11/2015 15:14 ? FINAL REPORT ? Final Report ? Verified:2014 11:35 ? No growth (Less than 100 cfu/ml). ? PRELIMINARY REPORT ? Preliminary Report ? Verified:2014 14:23 ? No growth to date. ? [facility] Urine specimen (specimen) 01/11/2015 2:30 PM EDT 01/11/2015 3:14 PM EDT Narrative Resulting Agency Comment Spec In Lab Sowmya Ingram Jr., MD MICROBIOLOGY - GEN ERAL ORDERABLES [facility] * SCAN DOC: IMPLANTABLE DEVICES (01/11/2015 12:00 AM EDT) Scanning Provider MEDIA MGR SCAN EXT O RDR/RSLT documented in this encounter Visit Diagnoses Not on filedocumented in this encounter Administered Medications Inactive Administered Medications - up to 3 most recent administrations Medication Order MAR Action Action Date Dose Rate Site acetaminophen (TYLENOL) tablet 650 mg 650 mg, Oral, EVERY 4 HOURS PRN, Starting on Nithya 01/11/15 at 1516, Until Nithya 01/11/15 at 1921, Pain, Maximum dose of acetaminophen is 4000 mg from all sources in 24 hours., Routine Given 01/11/2015 3:24 PM EDT 650 mg fentaNYL (PF) 50 mcg/mL 2mL syringe 25 mcg, Intravenous, EVERY 5 MIN PRN, Pain, for breakthrough pain, Starting on Nithya 01/11/15 at 1438, Until Nithya 01/11/15 at 1601, Hold for respiratory rate less than 10 per minute. Maximum dose: 250 mcg over one hour., PACU Recovery Given 01/11/2015 3:02 PM EDT 25 mcg lactated ringers infusion 1,000 mL 1,000 mL, at 100 mL/hr, Intravenous, CONTINUOUS, Starting on Nithya 01/11/15 at 1400, Until Nithya 01/11/15 at 1601, Day of Surgery (Day of Procedure) New Bag 01/11/2015 1:48 PM EDT 1,000 mLs 100 mL/hr oxyCODONE (ROXICODONE) immediate release tablet 5 mg 5 mg, Oral, EVERY 4 HOURS PRN, Starting on Nithya 01/11/15 at 1516, Until Nithya 01/11/15 at 1921, Pain, mild to moderate pain (1-6), May give an additional 5 mg in 30 minutes once if pain not relieved., Routine Given 01/11/2015 3:24 PM EDT 5 mg documented in this encounter Active and Recently Administered Medications Times are shown in EDT. Scheduled Medication Order 01/09/2015 01/10/2015 01/11/2015 ciprofloxacin (CIPRO) 400mg in dextrose 5% 200mL (COMPLETED) 400 mg, Intravenous, ONCE, 1 dose, On Nithya 01/11/15 at 1400, Administer over 60 Minutes, Day of Surgery (Day of Procedure), Indication for (Active or Suspected): Prophylaxis, Restricted Antibiotic: Please indicate the most appropriate choice: Pre-approved Indication (State the indication in Comments field) 1408 (Given - Provid er: Anoop Hernandez MD) Continuous Medication Order 01/09/2015 01/10/2015 01/11/2015 lactated ringers infusion 1,000 mL (CANCELED) 1,000 mL, at 100 mL/hr, Intravenous, CONTINUOUS, Starting on Nithya 01/11/15 at 1400, Until Nithya 01/11/15 at 1601, Day of Surgery (Day of Procedure) 1348 (New Bag - Prov ider: Angelina Mesa RN)1411 (Anesthesia Volume Adjustment - Provider: Anoop Hernandez MD)1424 (Anesthesia Volume Adjustment - Provider: Anoop Hernandez MD) PRN Medication Order 01/09/2015 01/10/2015 01/11/2015 acetaminophen (TYLENOL) tablet 650 mg (CANCELED) 650 mg, Oral, EVERY 4 HOURS PRN, Starting on Ntihya 01/11/15 at 1516, Until Nithya 01/11/15 at 1921, Pain, Maximum dose of acetaminophen is 4000 mg from all sources in 24 hours., Routine 1524 (Given - Provid er: Kylee Westbrook RN) fentaNYL (PF) 50 mcg/mL 2mL syringe (CANCELED) 25 mcg, Intravenous, EVERY 5 MIN PRN, Pain, for breakthrough pain, Starting on Nithya 5/14/15 at 1438, Until Nithya 5/14/15 at 1601, Hold for respiratory rate less than 10 per minute. Maximum dose: 250 mcg over one hour., PACU Recovery 1502 (Given - Provid er: Kylee Westbrook RN) iohexol (OMNIPAQUE) 300 mg/mL solution (CANCELED) ONCE PRN, Starting on Nithya 514/15 at 1435, Until Nithya 5/14/15 at 1601, Intra-Operative (Intra-Procedure), Routine 1435 (Given - Provid er: Sowmya Ingram Jr., MD - Comment: diluted 1 to 1 with 0.9% normal saline) oxyCODONE (ROXICODONE) immediate release tablet 5 mg (CANCELED)(Linked Group 1) 5 mg, Oral, EVERY 4 HOURS PRN, Starting on Nithya 5/14/15 at 1516, Until Nithya 5/14/15 at 1921, Pain, mild to moderate pain (1-6), May give an additional 5 mg in 30 minutes once if pain not relieved., Routine 1524 (Given - Provid er: Kylee Westbrook RN) Linked Groups Order Group 1: oxyCODONE (ROXICODONE) immediate release tablet 5 mg (CANCELED)Jump to med 5 mg, Oral, EVERY 4 HOURS PRN, Starting on Nithya 5/14/15 at 1516, Until Nithya 5/14/15 at 1921, Pain, mild to moderate pain (1-6), May give an additional 5 mg in 30 minutes once if pain not relieved., Routine Or oxyCODONE (ROXICODONE) immediate release tablet 10 mg (CANCELED) 10 mg, Oral, EVERY 4 HOURS PRN, Starting on Nithya 5/14/15 at 1516, Until Nithya 5/14/15 at 1921, Pain, severe pain (7-10), May give an additional 5 mg in 30 minutes once if pain not relieved., Routine documented in this encounter Care Teams Maintenance Team Member Relationship Specialty Start Date End Date Jim Wei MD [address] [place] [address] PCP - General 07/23/10 10/08/15 [facility] [address] [address] [place] [address] Braiding Machine OperatorTank Tester Medicine 03/26/11 documented as of this encounter
--- OUTSIDE RECORDS SUMMARY | 2024-05-27 02:34 | XMS_ITS | Encounter Summary ---
Author Organization [place] [address] Care Team Providers Care French Comber Name Role Phone Jim Wei MD Primary Care Provider [phone] Encounter Details Date Type Department Care Team (Late st Contact Info) Description 01/14/2015 [place] [id number] Anoop Li MD [facility] [place] [address] Social History Tobacco Use Types Packs/Day Years Used Date Smoking Tobacco: Never Alcohol Use Standard Drinks/Week Comments Yes 0 (1 standard drink = 0.6 oz pur e alcohol) occasional Sex and Gender Information Value Date Recorded Sex Assigned at Not on file Gender Identity Not on file Sexual Orientation Not on file documented as of this encounter Miscellaneous Notes * Telephone Encounter - Anoop Li - 01/14/2015 7:54 AM EDT Patient called with stent pain with associated chills. No fever by home thermometer, chills associated with pain, negative culture from 01/11. She will take temp if she experiences chills again and call if it is elevated at which time we will culture and treat empirically. documented in this encounter Plan of Treatment Not on file documented as of this encounter Visit Diagnoses Not on filedocumented in this encounter Care Teams French Comber Relationship Specialty Start Date End Date Jim Wei MD [address] [place] [address] PCP - General 07/23/10 10/08/15 [facility] [address] [address] [place] [address] Turn OutDredge Mechanic Medicine 03/26/11 documented as of this encounter
--- OUTSIDE RECORDS SUMMARY | 2024-05-27 02:34 | XMS_ITS | Encounter Summary ---
Author Organization [facility] Address [facility] [place] [address] Care Team Providers Care Supervisor Powdered Metal Name Role Phone Jim Wei MD Primary Care Provider [phone] Encounter Details Date Type Department Care Team (Late st Contact Info) Description 01/09/2015 [place] [address] Kourtney Clark MD [facility] [place] [address] Social History Tobacco Use Types Packs/Day Years Used Date Smoking Tobacco: Never Alcohol Use Standard Drinks/Week Comments Yes 0 (1 standard drink = 0.6 oz pur e alcohol) occasional Sex and Gender Information Value Date Recorded Sex Assigned at Not on file Gender Identity Not on file Sexual Orientation Not on file documented as of this encounter Progress Notes * Lori Castle LPN - 01/09/2015 3:59 PM EDT Macrobid 100 mg BID x 7 days called in to patient pharmacy. documented in this encounter Plan of Treatment Not on file documented as of this encounter Visit Diagnoses Not on filedocumented in this encounter Care Teams Supervisor Powdered Metal Relationship Specialty Start Date End Date Jim Wei MD [address] [place], [place] [id number] PCP - General 07/23/10 10/08/15 [facility] [address] [address] [place] [address] Door ManagerSpray Gun Operator Medicine 03/26/11 documented as of this encounter
--- OUTSIDE RECORDS SUMMARY | 2024-05-27 02:34 | XMS_ITS | Encounter Summary ---
Author Organization [facility] Address [facility] [address] [place] [address] Care Team Providers Care Real Estate Transaction Coordinator Name Role Phone Jim Wei MD Primary Care Provider [phone] Reason for Visit * Reason Comments Nephrolithiasis Encounter Details Date Type Department Care Team (Late st Contact Info) Description 01/10/2015 10:30 AM EDT [place] [address] CLINIC, Emeka Baez Jr., MD [facility] [place] [address] Renal calculus, left Discharge Disposition: Home Social History Tobacco Use [...] Sign Reading Time Taken Comments Blood Pressure 137/42 01/10/2015 9:55 AM EDT Pulse 79 01/10/2015 9:55 AM EDT Temperature - - Respiratory Rate - - Oxygen Saturation 97% 01/10/2015 9:55 AM EDT Inhaled Oxygen Concentration - - Weight 81.6 kg (180 lb) 01/10/2015 9:55 AM EDT Height 162.6 cm (5' 4) 01/10/2015 9:55 AM EDT Body Mass Index 30.9 01/10/2015 9:55 AM EDT documented in this encounter Progress Notes * Emeka Hernandez Jr., MD - 01/10/2015 11:08 AM EDT I saw and examined Barbi Ivey with Dr. Grayson and have independently reviewed her imagingstudies. I agree with history, exam, impression, and plan as noted. Ct reveals new branched left renal stone, >2cm. We reviewed mgmt options. She wishes to proceed with PCNL. Given current discomfort, she wishes to have stent placed this week if possible. * Aleja Kaye, ZACHARY - 01/10/2015 11:05 AM EDT Nutrition Intervention for the Management of Kidney Stone Disease Assessment/Nutrition Diagnosis: Pt at increased nutritional lithogenic risk related to: - sub optimal fluid intake - sub optimal calcium intake not timed with meals - intake of high-oxalate foods (spcecially with low calcium intake) 24-hour Urine Results (mL/24 hours): 1.16 L urine output, high calcium oxalate Height: 162.6 cm (5'4) Weight: 81.6 kg (180 lbs) BMI: 31 Patient Interview: Patient believes she is lactose-intolerant and just recently found out she is allergic to a long list of vegetables (potatoes, tomatoes, eggplant, etc). She had lost her low oxalate list of foods and feels she has not been paying close attention to her diet, but knows she needs to now. Drinking almond milk and eating nuts and other high oxalate foods on a regular basis. Can tolerate yogurt and will try having this with some of her meals. Typical Dietary Intake: B: Cereal with almond milk OR yogurt with fruit, cup of coffee L: Tuna sandwich beltrán, spices, pickles OR leftovers (white rice and vegetables) D: Chicken, or steak sometimes pork, and rice, couscous or quinoa, green beans, corn asparagus, or salad (lettuce, olives, feta, cucumbers) Ice cream in the evening S: Fruit (pineapple, ihsan) or Nuts, 2-3 bottles of 22oz water daily - Based on reported fluid intake, patient consuming approximately 2 L/day Goal is to consume approximately 2-3 L/day Will monitor fluid intake at next encounter. Intervention: - Recommended timing of dietary calcium with meals (3-400 grams/serving) - Instructed pt on Low-Oxalate Food choices - Provided diet education materials on Low Oxalate Diet. Monitor/Evaluate: 1) Pt will reduce high oxalate food choices, try yogurt with meals and increase fluid intake. * Justin Grayson - 01/10/2015 10:38 AM EDT HPI: Ms. Ivey is a pleasant 39 year old woman who returns to [facility] evaluation regarding nephrolithiasis. On imaging in July of 2014 she was found to have a 6 mm non obstructing left renal stone which she opted to monitor. In early December, she developed intermittent severe left flank pain. This was initally brought on after garden work so she did not address it. Over the weekend this became worse so she went to [facility] ED where a CT scan showed a >2 cm branched stone (partial staghorn). Shewas discharged with ibuprofen which has partially helped with her pain. Her pain is very movement associated, but currently she is comfortable. She had been on hydrochlorothiazide but this was stopped by her neurologist as they suspected is cristian contributing to her migraines. She states she has not had any improvement in the migraines sincecoming off hydrocholrothiazide. She admits to not taking in large fluid volumes, although she has been actively working to increase her hydration. She has also had history of right flank pain of unknown etiology (prior CT was obtained, confirmingno evidence of right sided stones (Two non-obstructing left renal stones again noted)). Trace possible right pelviectasis was suggested, prompting IVP to assess for any sign of obstruction. IVP was normal, without sign of any abnormality on right. She has known hypercalciuric/hyperoxaluric stone disease. Metabolic evaluation has been notable forhypercalciuria, borderline normal urinary citrate, isolated low volume and hyperoxaluria. With dietary oxalate reduction, she had markedly decreased her urinary oxalate and her calcium oxalate supersaturation. With dietary changes (low sodium, lower protein diet) and HCTZ her hypercalciuria also improved. Due to hypokalemia, KCL was added, but ultimately, reduction in HCTZ and addition of amiloride had normalized her serum electrolytes. In light of this, Dr Melvin also assessed her for secondary hyperaldosteronism, which he then considered not likely after labwork returned. She did collect a 24 urine in November as well. Review of Systems Constitution: Negative for fever. Neuro: Migranes. No helped by metoprolol. Per patient, improved by chiropractor. Musculoskeletal: Positive for back pain. Gastrointestinal: Postive for abdominal pain. Genitourinary: S. Saprophiticus UTI diagnosed at [facility] Past medical history: HTN, urolithiasis. Past surgical history: right ureteroscopy. Family history: no fam hx of stones Social History: no tobacco, social EtOH. Physical Exam Constitutional: She is oriented to person, place, and time. She appears well- developed and well-nourished. No distress. HENT: Head: Normocephalic and atraumatic. Cardiovascular: Normal rate, S1,S2, No murmer, sinus rythm Pulmonary/Chest: Clear auscultation bilaterally. Abdominal: Soft. She exhibits no distension. Left upper quadrant tenderness. There is no rebound and no guarding. Genitourinary: Mild Left CVA discomfort to percussion Neurological: She is alert and oriented to person, place, and time. Skin: She is not diaphoretic. Psychiatric: She has a normal mood and affect. Her behavior is normal. Vitals reviewed. Imaging studies: I independently reviewed the CT from [facility]. This reveals a left renal pelvis branched stone with mild hydronephrosis. Laboratory studies: 24 hour urine: 12/18/14 02/09/13; 09/15/12 01/29/12 (prior 02/13/10, 10/04/09 and 08/14 2009): volume: 2.2 2.71 3.4, 1.98 liters (normal / decreased at 2.35 2.24 and 1.30 liters). Calcium: 258 292, 247, 121 (mildly elevated at 149 271 and 192 mg/day.) Oxalate: 31 39, 40, 54 ( 33 27 and 53 mg/day.) uric acid: 0.67 0.641, 621, 465 (normal at 733 454 and 396 mg/day.) citrate: 460 615, 525, 785 (normal at 522 564 and 544 mg/day.) PH: 6.64 7.655, 7.24, 7.268 (6.656 7.133 and 6.463.) sodium: 140 206, 101 (normal at 78, 156 and 105 mmol/day) supersaturations: calcium oxalate: 6.02 5.19, 4.5, 6.71 (prior markedly improved 3.64, previously elevated at 5.58 and 17.01) calcium phosphate: 2.41 2.35, 1.03, 1.36 (1.39 prior elevated at 2.43 and 2.38) uric acid: 0.17 0.01, 0.03 (normal at 0.17, 0.48 and 0.24) Impression/Plan: 1)Branched left renal stone. I had a long discussion with Barbi Ivey regarding the partial left renal staghorn stone. We discussed at length the natural history of untreated staghorn stones. We discussed management options and the established panel concensus and evidence-based AUA guidelines for management of staghorn calculi. She understands that active treatment is recommended. We discussed management options of watchful waiting, open surgery, PCNL, Ureteroscopy, and SWL and the relative risks and benefits. With regard to left percutaneous nephrolithotomy, we specifically discussed risks of bleeding, infection, injury to or loss of kidney, and injury to surrounding structures including nerves and vasculature, lung, pleura, bowel, and solid organs, as well as risks of anesthesia including heart attack,deep venous thrombosis, pulmonary embolus, stroke, or . We discussed that we may be unable to access the collecting system or may be unable to access or remove all of the stone on the day of initial tract dilation such that multiple stages may be required in order to address the large stone burden. She would like to attempt definitive removal of the left renal staghorn stone, understands the risks and benefits of the options, and has requested that we proceed with left PCNL. Urine will be sent for culture to aid in antibiotic selection. I have asked her to call with any additional questions. We discussed that PCNL cannot be performed in someone actively anticoagulated or taking antiplatelet agents. She has been instructed to not take any aspirin, aspirin containing compounds, or other antiplatelet or anticoagulant agents for the 10 days preoperatively. Given her current intermittent pain, she wishes to proceed with interval cystoscopy and left ureteral stent placement, which we will try to arrange within the next 72 hours. 2)Recurrent urolithiasis. With mild hypercalciuria again noted off of HCTZ, she will meet with Dr Melvin today to discuss restarting a thiazide in order to reduce her hypercalciuria. She will also have hardboard panel printer consultation today as well. documented in this encounter Plan of Treatment Not on file documented as of this encounter Visit Diagnoses Diagnosis Renal calculus, left Calculus of kidney documented in this encounter Care Teams Real Estate Transaction Coordinator Relationship Specialty Start Date End Date Jim Wei MD [address] [place] [address] PCP - General 07/23/10 10/08/15 [facility] [address] [address] [place] [address] Gse MechanicPatch Washer Medicine 03/26/11 documented as of this encounter
--- OUTSIDE RECORDS SUMMARY | 2024-05-27 02:34 | XMS_ITS | Encounter Summary ---
Author Organization [facility] Address [facility] [address] [place] [address] Care Team Providers Care Director Staffing Name Role Phone Belem Mike MD Primary Care Provider [phone] Encounter Details Date Type Department Care Team (Late st Contact Info) Description 02/01/2015 7:30 AM EDT - 02/01/2015 11:58 AM EDT [place] [id number] Emeka Hernandez Jr., MD [facility] [place] [address] NEPHROLITHOTOMY, (PCNL) PERCUTANEOUS, COMPLEX (EG STONE > 2CM) (WRVU 20.91) Social History Tobacco Use Types Packs/Day Years [...] Sign Reading Time Taken Comments Blood Pressure 113/74 02/01/2015 11:57 AM EDT Pulse 76 02/01/2015 11:57 AM EDT Temperature 36.5 ??C (97.7 ??F) 02/01/2015 11:57 AM E DT Respiratory Rate 16 02/01/2015 11:57 AM EDT Oxygen Saturation 95% 02/01/2015 11:57 AM EDT Inhaled Oxygen Concentration - - Weight 81.6 kg (180 lb) 02/01/2015 6:45 AM EDT Height 162.6 cm (5' 4.02) 02/01/2015 6:45 AM ED T Body Mass Index 30.88 02/01/2015 6:45 AM EDT documented in this encounter Discharge Summaries * Sweetie English PA - 02/02/2015 1:53 PM EDT Discharge Summary Patient Name: Barbi Ivey Patient Age: 39 y.o. Language: Prydeinig Race: White Ethnicity: Not nor Admit date: 02/01/2015 Discharge date: 02/02/2015 Attending Physician: Emeka Hernandez Jr., MD Discharge Physician: same Discharge Diagnoses (Hospital Problems) and Secondary Diagnoses (Chronic Problems): Left staghorn renal calculus Active Non-Hospital Problems Diagnosis ??? Hypertension ??? History of kidney stones ??? Right shoulder pain Operations/Major Procedures: Procedure(s): NEPHROLITHOTOMY, (PCNL) PERCUTANEOUS, OVER 2CM PERCUTANEOUS INTRO GUIDE WIRE TO ACCESS RENAL PELVIS,AND OR URETER, W\DILATION CYSTO, REMOVAL OF STENT, FOREIGN BODY OR CALCULUS, SIMPLE CYSTOURETEROSCOPY, DIAGNOSTIC 02/01/2015 History of Presentation (from Dr. Grayson's note 01/10/15): Ms. Ivey is a pleasant 39 year [...] this became worse so she went to [facility] ED where a CT scan showed a >2 cm branched stone (partial staghorn). Shewas discharged with ibuprofen which has partially helped with her pain. Her pain is very movement associated, but currently she is comfortable. Hospital Course: Patient was admitted electively to [facility] via the same day surgery program and underwent the above procedure. She tolerated surgery well and was tranferred from the PACU to the general floor in good condition a few hours after surgery. Patient's hospital course was uncomplicated. She remained afebrile, with stable vital signs throughout her hospital stay. Today, on POD# 1 she has met all criteria for discharge home: her pain is well controlled with medications by mouth, she is tolerating a regular diet, is voiding spontaneously without difficulties, and is up and ambulating without complications. She has been deemed safe for discharge. Vital Signs at Discharge: Weight: Wt Readings from Last 1 Encounters: 02/01/15 81.647 kg (180 lb) Height: Ht Readings from Last 1 Encounters: 02/01/15 162.6 cm (5' 4.02) BMI: Body mass index is 30.88 kg/(m^2). Last value Range last 24 hrs Temperature Temp: 36.7 ??C (98.1 ??F) Temp: [36.5 ??C (97.7 ??F)-37 ??C (98.6 ??F)] Heart Rate Heart Rate: 91 Heart Rate: [71-104] Blood Pressure BP: 124/79 mmHg BP: (117-129)/(57-79) Respiratory Rate Resp: 18 Resp: [16-18] SpO2 SpO2: 95 % SpO2: [94 %-98 %] Exam at Discharge: General: NAD CV: RRR Pulm: CTAB Abd: soft, appropriately tender, nondistended Incision: PCN site with ostomy bag, draining clear pink urine Ext: warm, well perfused Functional and Cognitive Status: Ambulating and cognitively intact. Important Studies and Lab Data: Lab Results Component Value Date WBC 12.5* 02/02/2015 RBC 4.09 02/02/2015 HGB 12.9 02/02/2015 HCT 37.2 02/02/2015 MCV 91.0 02/02/2015 MCH 31.5 02/02/2015 MCHC 34.7 02/02/2015 PLATELET 239 02/02/2015 RDWCV 12.5 02/02/2015 Lab Results Component Value Date NA 137 02/02/2015 K 3.6 02/02/2015 CL 98 02/02/2015 CO2 25 02/02/2015 BUN 6* 02/02/2015 CREATININE 0.63* 02/02/2015 GLUCOSE 123 02/02/2015 CALCIUM 8.9 02/02/2015 Studies: CT Abd/Pelvis without contrast 02/02/15 IMPRESSION: Status post left percutaneous nephrostomy tube placement with left nephroureteral stent. No residual calculi identified in the left renal pelvis or along the course of the left ureter. Pending labs: Kidney stone analysis Discharge Conditions/Prognosis: Stable Discharge to: Home Updated Allergies/ADRs: Allergies Allergen Reactions ??? Adhesive Dermatitis Rash and blisters. Fine with paper tape ??? Lisinopril Other (See Comments) hypotension ??? Penicillins Hives Immunizations Given this Hospitalization: There is no immunization history on file for this patient. Discharge Medications: Your Medications New Medications Dose Details docusate sodium 100 mg Cap Commonly known as: COLACE Take 1 capsule by mouth 2 times daily as needed for Constipation. 100 mg Refills: 0 oxybutynin 5 mg Tab Commonly known as: DITROPAN Take 1 tablet by mouth 3 times daily. 5 mg Quantity: 30 tablet Refills: 0 Continued medications with new dosing Dose Details oxyCODONE 5 mg Tab Commonly known as: ROXICODONE Take 1-2 tablets by mouth every 4 hours as needed for Pain. What changed: how much to take 5-10 mg Quantity: 30 tablet Refills: 0 Continued medications, unchanged Dose Details aMILoride 5 mg Tab Commonly known as: MIDAMOR Take 1 tablet by mouth daily. 5 mg Quantity: 90 tablet Refills: 3 hydrochlorothiazide 12.5 mg Tab Commonly known as: HYDRODIURIL 12.5 MG = 1 Tablet(s), PO, Twice daily Refills: 0 meTOPROLOL succinate 25 mg Tablet sr Commonly known as: TOPROL-XL Take 25 mg by mouth daily. 25 mg Refills: 0 nitrofurantoin (macrocrystal-monohydrate) 100 mg Cap Commonly known as: MACROBID Take 100 mg by mouth 2 times daily. 100 mg Refills: 0 potassium Citrate 10 mEq (1,080 mg) Tbsr Commonly known as: UROCIT Take 1 tablet by mouth 3 times daily. 10 mEq Quantity: 270 tablet Refills: 10 SUMAtriptan 100 mg Tab Commonly known as: IMITREX Take by mouth as needed. Refills: 0 tamsulosin 0.4 mg Cp24 Commonly known as: FLOMAX Take 1 capsule by mouth daily. 0.4 mg Quantity: 30 tablet Refills: 0 STOPPED Medications potassium chloride 20 mEq Tbtq Commonly known as: K-DUR/KLOR-CON Smoking Status at Discharge: History Smoking status ??? Never Smoker Smokeless tobacco ??? Never Used Instructions Given to Patient at Discharge: Patient Instructions DISCHARGE INSTRUCTIONS FOLLOWING PCNL Call your doctor for: ??? fevers greater than 100.5 ??? severe nausea or vomiting ??? increasing pain not controlled by pain medications ??? increasing redness or drainage from incisions ??? decreased urine output our if your catheter is no longer draining. The number for questions is [phone] before 5 PM weekdays and [phone] after 5 PM and weekends. Activity: Gradually increase activity with short frequent walks, three to four times a day. Avoid strenuous activities, like sports, lawn mowing, or heavy lifting more than 10-15 pounds. Wear loose, comfortable clothing that won't pull or kink the tube or tubes. Do not drive while taking pain medication, or until your doctor permits it. Bathing and dressing change: You should not shower for 48 hours after surgery. Do not soak your back in a bathtub. Drainage bag care: for patients with ostomy appliance over incision The drainage bag should be secured such that it never pulls on the nephrostomy tube. It is important to wash your hands before and after emptying the drainage bag to help prevent the spread of infection. The drainage bag should be emptied as needed. When the wound stops draining or it is manageablewith a dry gauze dressing, you can remove the bag. Diet: It is extremely important to drink plenty of fluids after surgery, especially water. You may resumeyour regular diet, unless otherwise instructed Medications: You may take Tylenol (acetaminophen) or Ibuprofen (Advil, Motrin) as directed [id number]. Take any prescriptions as directed. Follow up Appointments: Follow-up appointment will be scheduled with Dr. Hernandez in 2-3 weeks for a hospital check and stent removal. Appointment will be mailed to you. Please call [phone] (clinic number for appointments) to confirm date and time of your appointment if you do not receive it. You have a ureteral stent in place. It is important to remember that a stent is not a permanent device and must be removed in a timely fashion. Failure to remove a stent may result in the need for more procedures. General Instructions None Future Appointments Provider Department Dept Phone 02/22/2015 11:30 AM UROLOGY, PROCEDURE Urology [phone] 02/22/2015 11:40 AM Emeka Hernandez Jr., MD [facility] [phone] 06/13/2015 1:00 PM Matthew Melvin MD Nephrology [phone] 06/13/2015 1:30 PM Emeka Hernandez Jr., MD Urology [phone] Follow-Up: Future Appointments Date Time Provider Department Center 02/22/2015 11:30 AM UROLOGY, PROCEDURE [facility] 02/22/2015 11:40 AM Emeka Hernandez Jr., MD [facility] None 06/13/2015 1:00 PM Matthew Melvin MD [facility] 06/13/2015 1:30 PM Emeka Hernandez Jr., MD [facility] Primary Care Provider: BELEM MIKE MD [phone] Follow-up Recommendations for Providers: Please see discharge instructions. Call your doctor if: Please call your doctor immediately or go to an Emergency Department if you notice worsening pain not controlled by pain medications, uncontrolled headache, vision changes, chest pain, difficulty breathing, persistent nausea and vomiting, new redness or swelling in any extremities, new onset weakness or changes in sensation, or for any fevers greater than 101.3 F. Your care was managed by the Urology Team at [facility]. If you have any questions or concerns, please feel free to contact us. Provider Contact Information: Urology Clinic: [facility] (after business hours): documented in this encounter Discharge Instructions * Patient Instructions* Sweetie English PA - 02/02/2015 1:56 PM EDT DISCHARGE INSTRUCTIONS FOLLOWING PCNL Call your doctor for: ??? fevers greater than 100.5 ??? severe nausea or vomiting ??? increasing pain not controlled by pain medications ??? increasing redness or drainage from incisions ??? decreased urine output our if your catheter is no longer draining. The number for questions is [phone] before 5 PM weekdays and [phone] after 5 PM and weekends. Activity: Gradually increase activity with short frequent walks, three to four times a day. Avoid strenuous activities, like sports, lawn mowing, or heavy lifting more than 10-15 pounds. Wear loose, comfortable clothing that won't pull or kink the tube or tubes. Do not drive while taking pain medication, or until your doctor permits it. Bathing and dressing change: You should not shower for 48 hours after surgery. Do not soak your back in a bathtub. Drainage bag care: for patients with ostomy appliance over incision The drainage bag should be secured such that it never pulls on the nephrostomy tube. It is important to wash your hands before and after emptying the drainage bag to help prevent the spread of infection. The drainage bag should be emptied as needed. When the wound stops draining or it is manageablewith a dry gauze dressing, you can remove the bag. Diet: It is extremely important to drink plenty of fluids after surgery, especially water. You may resumeyour regular diet, unless otherwise instructed Medications: You may take Tylenol (acetaminophen) or Ibuprofen (Advil, Motrin) as directed [id number]. Take any prescriptions as directed. Follow up Appointments: Follow-up appointment will be scheduled with Dr. Hernandez in 2-3 weeks for a hospital check and stent removal. Appointment will be mailed to you. Please call [phone] (clinic number for appointments) to confirm date and time of your appointment if you do not receive it. You have a ureteral stent in place. It is important to remember that a stent is not a permanent device and must be removed in a timely fashion. Failure to remove a stent may result in the need for more procedures. documented in this encounter Medications at Time [...] 04/18/2010 10/09/2015 documented as of this encounter Progress Notes * Evelyn Waters RN - 02/02/2015 9:43 AM EDT Urology CARE TRANSPORT NURSE 0906 removed neph tube min bleeding at site uro-bag applied by CARE TRANSPORT NURSE Pt now OOB in chair -- escalante in place -- will monitor Pt alcides procedure well. Pre med with 5mg oxy PO and 4mg Zofran PO * Frida Pinon RN - 02/01/2015 10:28 AM EDT 1015-Arrival to PACU via bed form OR. Monitors on & alarms set appropriately. Drowsy but arouseable. Reoriented to all surroundings. VSS. L nephrostomy tube c/d/i-draining bloody fluid. Per MD, ok if this 'clots' off. Should call service if notice increase bloody output. Escalante cath draining clear bloody urine. Denies pain at present. 1030-STAT labs drawn & sent as ordered. 1130-Resting. Arouses easily. States nausea resolved. Only c/o soreness to L flank area. SHRIMPING [employer] CAPTAIN initiated w/teaching provided. L flank drsg remains c/d/i. Draining bloody drainage-min amts. Escalante draining lite red urine-no clots noted. Turned for skin assessment & alcides well. Family in to visit. To transfer to at this time. documented in this encounter H&P Notes * Emeka Hernandez Jr., MD - 02/01/2015 7:29 AM EDT Patient Name: Barbi Ivey Patient Age: 39 y.o. Birthdate: 1975 Admit date: 02/01/2015 Attending Physician: Emeka Hernandez Jr., MD See recent full H and P. She has had left ureteral stent placed, otherwise no interval chaand We discussed that PCNL cannot be performed in someone actively anticoagulated or taking antiplatelet agents. She has been instructed to not take any aspirin, aspirin containing compounds, or other antiplatelet or anticoagulant agents for the 10 days preoperatively. HPI: Ms. Ivey is a pleasant 39 [...] this became worse so she went to [facility] ED where a CT scan showed [...] pain. Genitourinary: S. Saprophiticus UTI diagnosed at [facility] Past medical history: HTN, urolithiasis. Past [...] studies: I independently reviewed the CT from [facility]. 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 She will also have senior officer consultation today as well. documented in this encounter Miscellaneous Notes * Plan of Care - Evelyn Waters RN - 02/02/2015 4:20 PM EDT Problem: General Plan of Care Goal: Plan of Care Review Outcome: Outcome (s) achieved Date Met: 02/02/15 02/02/15 3633 Coping/Psychosocial Response Interventions Plan of Care Reviewed with patient;friend Plan of Care Review Plan of Care Outcome Status outcome achieved Progress improving See prog note neph tube d/c 0930 Urostomy bag placed draining lg amts light pink fluid Escalante d/c and pt voiding well indep Ambulating indep Pain control with oxy 5mg PO Nausea decreased with zofran 4mg po AVSS AVS provided, teaching patient and patient's friend re: urosotomy mgmt with demo, and review. Pt verbalized understanding Supplies provided for home care urostomy Goal: Individualization and Mutuality Outcome: Outcome (s) achieved Date Met: 02/02/15 02/02/15 1615 Individualization Individualize the Plan of Care: s/p kidney stone removal/neph tube, escalante cath, pain / nause control Patient Specific Preferences pain tx, nausea tx Patient Specific Goals amb, remove escalante, mitigate pain, d/c teach for urosotomy bag mgmt Patient Specific Interventions see above Mutuality/Individual Preferences What anxieties, fears or concerns do you have about your health or care? none my friends/fam will be helpin gme What questions do you have about your health or care? answered by nurses and WIRE PULLER Goal: Fall Prevention-Safe Patient Handling Outcome: Outcome (s) achieved Date Met: 02/02/15 02/02/15 0602/02/15 1329 Safety Interventions Safety Precautions/Fall Reduction -- fall reduction program maintained;environmental modification;lighting adjusted for task/safety;nonskid shoes/slippers when out of bed;room near unit station;supervised activity Musculoskeletal Interventions Activity/Level of Assistance -- up in malin;up in room;ambulated;with stand by assist;with 1-person assist Positioning -- HOB up 30-45 degrees Muscle Strengthening -- activity/mobility promoted;sitting on edge of bed encouraged Self-Care Promotion -- hygiene assistance provided Mendenhall Fall Risk History of Falling -- 0 Secondary Diagnosis -- 15 Ambulatory Aids -- 0 Intravenous Therapy/Heparin/Saline Lock -- 0 Gait/Transferring -- 0 Mental Status -- 0 Score -- 15 Activity and Safety Assistive Device Other (held onto nurse's hand when oob to keep steady) -- OTHER Mendenhall Fall Risk -- Low Goal: Infection Control Outcome: Outcome (s) achieved Date Met: 02/02/15 02/01/15 1200 02/01/15 1237 02/02/15 1329 Safety Interventions Isolation Precautions -- standard precautions maintained -- Infection Prevention rest/sleep promoted;environmental surveillance;bronchial hygiene promoted -- -- Coping/Psychosocial Response Interventions Counseling -- -- reassurance provided;goal setting facilitated;personal strengths integrated Goal: Discharge Needs Assessment Outcome: Outcome (s) achieved Date Met: 02/02/15 02/02/15 1615 Discharge Needs Assessment Concerns Comments friends/fam will assist with home care Readmission Within the Last 30 Days no previous admission in last 30 days Equipment Needed After Discharge none Discharge Planning Comments see notes Current Health Anticipated Changes Related to Illness none Self-Care Equipment Currently Used at Home none Living Environment Transportation Available car;family or friend will provide * Op Note - Emeka Hernandez Jr., MD - 02/02/2015 4:10 PM EDT Operative Note Patient Name: Barbi Ivey : [id number] MR#: [id number] Case Date: 02/01/2015 Surgeon: Surgeon(s) and Role: * Justin Grayson MD - Resident-Surgeon Chief * Emeka Hernandez Jr., MD - Primary Preoperative diagnosis: LEFT STAGHORN STONE Postoperative diagnosis: LEFT STAGHORN STONE Procedure(s): NEPHROLITHOTOMY, (PCNL) PERCUTANEOUS, OVER 2CM PERCUTANEOUS INTRO GUIDE WIRE TO ACCESS RENAL PELVIS,AND OR URETER, W\DILATION CYSTO, REMOVAL OF STENT, FOREIGN BODY OR CALCULUS, SIMPLE CYSTOURETEROSCOPY, DIAGNOSTIC Anesthesia: General Findings: Left lower pole stag horn Single lower pole stab Complications: None Fluids: 1000 mL Estimated Blood Loss:200 ML Drains: 16 Fr Escalante 7 FR variable length stent, left 24 Fr Paulina Pollack catheter Disposition: awakened from anesthesia, extubated and taken to the recovery room in a stable condition, having suffered no apparent untoward event. Condition: doing well without problems Ms. Ivey has a known left lower pole partial staghorn stone that has caused her symptoms. She has been previously stented and now presents for definitive therapy in the form of PCNL. Operative Description: After the patient had given informed consent, she was taken to the Operating Room where she was placed under general anesthesia, given IV antibiotics, placed in the prone split leg position, prepped, and draped. A time out was performed, and no concerns were raised. We began by doing a prone flexible cystoscopy. We identified a normal bladder and intubated the left ureter with a glidewire up into the renal pelvis. We then advanced a flexible ureteroscope up the ureter into the renal pelvis. By injecting air, we identified the most posterior cayetano in the lower pole and placed our scope there. Then using a 25-degree bull's eye technique through Brodel plane we inserted the needle and observed it through the ureteroscopy entering into the cayetano. The glidewire was advanced through it, and then into the ureter, bladder, and out through the urethra. Through the angiographic catheter, this wire was exchanged out for a super-stiff wire. We then used an 8/10-Honduran dilator to dilate a tract down into the kidney over the super-stiff wire. We removed the inner 8-Honduran sheath and placed another glidewire down through the ureter, bladder, and out the urethra. Over a Pollack catheter, this was then exchanged for another super-stiff wire. We then used a NephroMax balloon dilator over one of the super-stiff wires to dilate up a tract. This was also observed under fluoroscopic and endoscopic direct vision. Once the access had been dilated, we removed the NephroMax balloon and inserted a rigid nephroscope and with lithoclast started fragmenting the stone. The stone was fairly soft and fragmented easily into larger chips, which we could then grab and move out with a two-prong grasper. All the major fragments were removed in this fashion. We then inserted a flexible nephroscope and then a flexible ureteroscope and surveyed the kidney and removed all remaining fragments. Then we used a retrograde ureteroscope and followed down the ureter identifying no further fragments. We finally did a retrograde ureteroscopy to exclude any fragments around the access entry. A mapping pyelogram was performed, and then a 7-Honduran variable-length ureteral stent was placed down into the bladder over a glidewire with a curl in the collecting system. She had a final retrograde showing some extravasation through the lower pole. We then placed a 24-Honduran Paulina catheter on a Pollack through it before removing the wire and securing with stitches. Appropriate dressing was applied, and the case was concluded. * Plan of Care - Lona Nguyen RN - 02/02/2015 11:49 AM EDT Problem: General Plan of Care Goal: Plan of Care Review Outcome: Ongoing (Interventions Implemented as Appropriate) 02/02/15 1148 Coping/Psychosocial Response Interventions Plan of Care Reviewed with patient Plan of Care Review Plan of Care Outcome Status ongoing (interventions implemented as appropriate) Progress improving Goal: Individualization and Mutuality Outcome: Ongoing (Interventions Implemented as Appropriate) 02/01/15 1200 Mutuality/Individual Preferences What anxieties, fears or concerns do you have about your health or care? none at this time What questions do you have about your health or care? I may have some before I go home What information would help us give you more personalized care? none at this time Goal: Fall Prevention-Safe Patient Handling Outcome: Ongoing (Interventions Implemented as Appropriate) 02/01/15 1200 02/01/15 1237 02/02/15 0259 Safety Interventions Safety Precautions/Fall Reduction fall reduction program maintained;family at bedside;low bed;nonskid shoes/slippers when out of bed -- -- Musculoskeletal Interventions Activity/Level of Assistance -- -- -- Positioning -- -- HOB up 15 degrees;left side Muscle Strengthening -- mobility in bed promoted -- Self-Care Promotion -- independence encouraged while providing assistance -- Mendenhall Fall Risk History of Falling 0 -- -- Secondary Diagnosis 15 -- -- Ambulatory Aids 0 -- -- Intravenous Therapy/Heparin/Saline Lock 20 -- -- Gait/Transferring 0 -- -- Mental Status 0 -- -- Score 35 -- -- Activity and Safety Assistive Device -- -- -- OTHER Mendenhall Fall Risk Med -- -- 02/02/15 0600 Safety Interventions Safety Precautions/Fall Reduction -- Musculoskeletal Interventions Activity/Level of Assistance up in malin Positioning -- Muscle Strengthening -- Self-Care Promotion -- Mendenhall Fall Risk History of Falling -- Secondary Diagnosis -- Ambulatory Aids -- Intravenous Therapy/Heparin/Saline Lock -- Gait/Transferring -- Mental Status -- Score -- Activity and Safety Assistive Device Other (held onto nurse's hand when oob to keep steady) OTHER Mendenhall Fall Risk -- Goal: Infection Control Outcome: Ongoing (Interventions Implemented as Appropriate) 02/01/15 1200 02/01/15 1237 Safety Interventions Isolation Precautions -- standard precautions maintained Infection Prevention rest/sleep promoted;environmental surveillance;bronchial hygiene promoted -- Coping/Psychosocial Response Interventions Counseling -- goal setting facilitated;problem solving facilitated Goal: Discharge Needs Assessment Outcome: Ongoing (Interventions Implemented as Appropriate) 02/01/15 1237 Discharge Needs Assessment Concerns to be Addressed other (see comments) (may need assistance if she goes home with any drains/cathete) Readmission Within the Last 30 Days no previous admission in last 30 days Equipment Needed After Discharge none Current Health Anticipated Changes Related to Illness none Self-Care Equipment Currently Used at Home none Living Environment Transportation Available family or friend will provide Comments: OUTCOME EVALUATION NOTE: OUTCOME SUMMARY: Pt.'s pain controlled with SHRIMPING BOAT CAPTAIN but also 5mg's oxycodone,pain averaged 6/10-but 4/10 when oxycodone used in addition to SHRIMPING [employer]TAIN. Pt. Had zofran overnight for ongoing nausea. Pt. oob twice overnight,gait steady though slow and guarded. Pt. On r/a ,lungs clear bilat. Pt. Neph tube clear punch red no clots,qs. Pt.'s escalante patent clear yellow sometimes pink urine. Combined uo. Qs. PLAN MOVING FORWARD: Pt. For later am d/c pending ct scan results from ct scan @ 0645.pt. Will also need to tolerate po without n/v INDIVIDUALIZED FALL PREVENTION: Assistance: ADL's with one assist Supervision: oob with one assist Surveillance: Masimo,bed alarm until first oob,purposeful rounding CPG GOAL OUTCOME EVALUATION: * Plan of Care - Virginia Shaffer RN - 02/01/2015 12:47 PM EDT Problem: General Plan of Care Goal: Plan of Care Review Outcome: Ongoing (Interventions Implemented as Appropriate) 02/01/15 1237 Coping/Psychosocial Response Interventions Plan of Care Reviewed with patient Plan of Care Review Plan of Care Outcome Status ongoing (interventions implemented as appropriate) Progress progress toward functional goals as expected OUTCOME EVALUATION NOTE: OUTCOME SUMMARY: Report received from Frida ESCOBEDO in PACU. Patient arrived to [facility] via bed. Is drowsybut appropriate when awakened and able to answer questions. Dressing is CDI. Neph tube and escalante patent and draining pink/red tinged urine. Able to use SHRIMPING BOAT CAPTAIN appropriately. PLAN MOVING FORWARD: POC reviewed, oriented to call choe system. Using SHRIMPING BOAT CAPTAIN. Taking ice chips. INDIVIDUALIZED FALL PREVENTION: Assistance: Assisted with bed mobility and as needed when OOB. Supervision: Independent after set up. Surveillance: Friends and family at bedside, continuous pulse ox, purposeful rounding. CPG GOAL OUTCOME EVALUATION: Goal: Individualization and Mutuality Outcome: Ongoing (Interventions Implemented as Appropriate) 02/01/15 1200 Mutuality/Individual Preferences What anxieties, fears or concerns do you have about your health or care? none at this time What questions do you have about your health or care? I may have some before I go home What information would help us give you more personalized care? none at this time Goal: Fall Prevention-Safe Patient Handling Outcome: Ongoing (Interventions Implemented as Appropriate) 02/01/15 1100 02/01/15 1200 02/01/15 1237 Safety Interventions Safety Precautions/Fall Reduction -- fall reduction program maintained;family at bedside;low bed;nonskid shoes/slippers when out of bed -- Musculoskeletal Interventions Activity/Level of Assistance -- -- bed rest Positioning HOB up 30 degrees -- -- Muscle Strengthening -- -- mobility in bed promoted Self-Care Promotion -- -- independence encouraged while providing assistance [place] Fall Risk History of Falling -- 0 -- Secondary Diagnosis -- 15 -- Ambulatory Aids -- 0 -- Intravenous Therapy/Heparin/Saline Lock -- 20 -- Gait/Transferring -- 0 -- Mental Status -- 0 -- Score -- 35 -- OTHER [place] Fall Risk -- Med -- Goal: Infection Control Outcome: Ongoing (Interventions Implemented as Appropriate) 02/01/15 1200 02/01/15 1237 Safety Interventions Isolation Precautions -- standard precautions maintained Infection Prevention rest/sleep promoted;environmental surveillance;bronchial hygiene promoted -- Coping/Psychosocial Response Interventions Counseling -- goal setting facilitated;problem solving facilitated Goal: Discharge Needs Assessment Outcome: Ongoing (Interventions Implemented as Appropriate) 02/01/15 1237 Discharge Needs Assessment Concerns to be Addressed other (see comments) (may need assistance if she goes home with any drains/cathete) Readmission Within the Last 30 Days no previous admission in last 30 days Equipment Needed After Discharge none Current Health Anticipated Changes Related to Illness none Self-Care Equipment Currently Used at Home none Living Environment Transportation Available family or friend will provide * Brief Op Note - Justin Grayson - 02/01/2015 10:18 AM EDT Brief Operative Note Patient Name: Barbi Ivey : [id number] MR#: [id number] Case Date: 02/01/2015 Surgeon: Surgeon(s) and Role: * Justin Grayson MD - Resident-Surgeon Chief * Emeka Hernandez Jr., MD - Primary Preoperative diagnosis: LEFT STAGHORN STONE Postoperative diagnosis: LEFT STAGHORN STONE Procedure(s): NEPHROLITHOTOMY, (PCNL) PERCUTANEOUS, OVER 2CM PERCUTANEOUS INTRO GUIDE WIRE TO ACCESS RENAL PELVIS,AND OR URETER, W\DILATION CYSTO, REMOVAL OF STENT, FOREIGN BODY OR CALCULUS, SIMPLE CYSTOURETEROSCOPY, DIAGNOSTIC Anesthesia: General Findings: Left lower pole stag horn Single lower pole stab Complications: None Fluids: 1000 mL Estimated Blood Loss:200 ML Drains: 16 Fr Escalante 7 FR variable length stent, left 24 Fr Paulina Pollack catheter Disposition: awakened from anesthesia, extubated and taken to the recovery room in a stable condition, having suffered no apparent untoward event. Condition: doing well without problems (Please see the Surgical Encounter Summary for any Implant and Specimen details pertinent to this patient.) Associated attestation - Emeka Hernandez Jr., MD - 02/01/2015 10:35 AM EDT I was present and I participated during the entire procedure. documented in this encounter Plan of Treatment Pending Results Name Type Priority Associated Diagnoses Date /Time XR Fluoro OR c-arm storage only Imaging Routine 02/01/2015 9:56 AM EDT Scheduled Orders Name Type Priority Associated Diagnoses Orde r Schedule XR Fluoro OR c-arm storage only Imaging Routine Once PRN (for Ra diant use) for 1 Occurrences starting 02/01/2015 until 02/01/2015 documented as of this encounter Procedures Procedure Name Priority Date/Time Associated Diagnosis Comments CT ABDOMEN AND PELVIS WO CONTRAST STAT 02/02/2015 7:12 AM EDT HEMOGRAM Timed 02/02/2015 3:30 AM EDT DIFFERENTIAL, AUTOMATED Timed 02/02/2015 3:30 AM EDT CBC (WITH DIFF) Timed 02/02/2015 3:30 AM EDT BASIC METABOLIC PANEL Timed 02/02/2015 3:30 AM EDT IMPLANTABLE DEVICES SCAN 02/02/2015 12:00 AM EDT ECG SCAN 02/02/2015 12:00 AM EDT HEMOGRAM STAT 02/01/2015 10:38 AM EDT DIFFERENTIAL, AUTOMATED STAT 02/01/2015 10:38 AM EDT CBC (WITH DIFF) STAT 02/01/2015 10:38 AM EDT BASIC METABOLIC PANEL STAT 02/01/2015 10:38 AM EDT KIDNEY STONE ANALYSIS Routine 02/01/2015 9:50 AM EDT CYSTOURETEROSCOPY, DIAGNOSTIC (WRVU 5.75) 02/01/2015 7:33 AM EDT LEFT STAGHORN STONE CYSTO, REMOVAL OF STENT, FOREIGN BODY OR CALCULUS, SIMPLE (WRVU 2.81) 02/01/2015 7:33 AM EDT LEFT STAGHORN STONE PERCUTANEOUS INTRO GUIDE WIRE TO ACCESS RENAL PELVIS,AND OR URETER, W\DILATION (WRVU 3.37) 02/01/2015 7:33 AM EDT LEFT STAGHORN STONE NEPHROLITHOTOMY, (PCNL) PERCUTANEOUS, COMPLEX (EG STONE > 2CM) (WRVU 20.91) 02/01/2015 7:33 AM EDT LEFT STAGHORN STONE ABO/RH TYPING STAT 02/01/2015 6:31 AM EDT ANTIBODY SCREEN STAT 02/01/2015 6:31 AM EDT TYPE AND SCREEN ([facility]) STAT 02/01/2015 6:31 AM EDT documented in this encounter Results * CT abdomen & pelvis WO contrast (02/02/2015 7:12 AM EDT) Anatomical Region Laterality Modality Abdomen, Pelvis Computed Tomogra phy 02/02/2015 7:12 AM EDT Impressions 02/02/2015 7:47 AM EDT IMPRESSION: Status post left percutaneous nephrostomy tube placement with left nephroureteral stent. No residual calculi identified in the left renal pelvis or along the course of the left ureter. Narrative 02/02/2015 7:47 AM EDT EXAMINATION: CT Abdomen / Pelvis Without Contrast CLINICAL HISTORY: s/p PCNL, check for residual stone, low dose please TECHNIQUE: Helical CT of the abdomen and pelvis was performed without the use of intravenous contrast COMPARISON: CT of the abdomen and pelvis from January 05, 2015 FINDINGS: Right kidney and ureter: No renal calculi or hydronephrosis. Left kidney and ureter: Status post left percutaneous nephrostomy tube placement with nephroureteral stent. There is a small amount of postprocedural air in the renal pelvis. No residual calculus identified in the renal pelvis or along the course of the left nephroureteral stent. Urinary bladder: Decompressed. Distal end of nephroureteral stent and Escalante catheter in place. This examination is limited for the evaluation of solid organs and vasculature structures due to the lack of intravenous contrast. There is minimal bilateral dependent atelectasis, right greater than left. Unenhanced images of the liver, spleen, pancreas, and adrenal glands are within normal limits. No lymphadenopathy. No ??free fluid in the abdomen or pelvis. ??No bowel dilatation or inflammatory changes. Osseous structures: Unremarkable. Procedure Note Angelica Obrien MD - 02/02/2015 EXAMINATION: CT Abdomen / Pelvis Without Contrast CLINICAL HISTORY: s/p PCNL, check for residual stone, low dose please TECHNIQUE: Helical CT of the abdomen and pelvis was performed without theuse of intravenous contrast COMPARISON: CT of the abdomen and pelvis from January 05, 2015 FINDINGS: Right kidney and ureter: No renal calculi or hydronephrosis. Left kidney and ureter: Status post left percutaneous nephrostomy tubeplacement with nephroureteral stent. There is a small amount of postprocedural airin the renal pelvis. No residual calculus identified in the renal pelvis or alongthe course of the left nephroureteral stent. Urinary bladder: Decompressed. Distal end of nephroureteral stent andFoley catheter in place. This examination is limited for the evaluation of solid organs andvasculature structures due to the lack of intravenous contrast. There is minimal bilateral dependent atelectasis, right greater thanleft. Unenhanced images of the liver, spleen, pancreas, and adrenal glands arewithin normal limits. No lymphadenopathy. No free fluid in the abdomen or pelvis. No bowel dilatation orinflammatory changes. Osseous structures: Unremarkable. IMPRESSION IMPRESSION: Status post left percutaneous nephrostomy tube placement with left nephroureteral stent. No residual calculi identified in the left renalpelvis or along the course of the left ureter. Emeka Hernandez Jr., MD IM CT ORDERABLES * (ABNORMAL) Differential, Automated (02/02/2015 3:30 AM EDT) Neutrophil % 88.9 % CERNER MILLENNIUM Neutrophil Absolute 11.15(H) 1.50 - 6.30 x10(3)/mc L CERNER MILLENNIUM Lymph % 6.4 % CERNER MILLENNIUM Lymphocytes Abs 0.8(L) 1.0 - 3.6 x10(3)/mc L CERNER MILLENNIUM Monocyte % 4.5 % CERNER MILLENNIUM Monocyte Abs 0.6 0.2 - 1.0 x10(3)/mc L CERNER MILLENNIUM Eos % 0.0 % CERNER MILLENNIUM Eosinophils Abs 0.0 0.0 - 0.5 x10(3)/mc L CERNER MILLENNIUM Basophil % 0.0 % CERNER MILLENNIUM Baso Absolute 0.0 0.0 - 0.2 x10(3)/mc L CERNER MILLENNIUM Immature Gran % 0.20 % CERN ER MILLENNIUM Comment: Immature granulocytes(IG's)percentage and absolute count will include metamyelocytes, myelocytes, and promyelocytes. Blood smears from CBCs yielding IG's will be scanned manually for concordance. If this scan disagrees with the automated IG or if promyelocytes are noted, a manual differential will be performed. Immature Gran Absolute 0.03 0.00 - 0.05 x10(3)/mc L CERNER MILLENNIUM Blood specimen (specimen) 02/02/2015 3:30 AM EDT 02/02/2015 4:06 AM EDT Narrative Resulting Agency Comment Spec In Lab Emeka Hernandez Jr., MD HEMATOLOGY ORDERAB LES Performing Organization Address [facility] Co de Phone Number CERNER MILLENNIUM * (ABNORMAL) Hemogram (02/02/2015 3:30 AM EDT) White Blood Cell 12.5(H) 4.0 - 10.0 x10(3)/mc L CERNER MILLENNIUM Red Blood Cell 4.09 3.93 - 5.22 x10(6)/mc L CERNER MILLENNIUM Hemoglobin 12.9 11.2 - 15.7 gm/dL CERNER MILLENNIUM Hematocrit 37.2 34.0 - 45.0 % CERNER MILLENNIUM Mean Cell Volume 91.0 79.0 - 94.0 fL CERNER MILLENNIUM Mean Cell Hemoglobin 31.5 26.6 - 32.2 pg CERNER MILLENNIUM Mean Cell Hemoglobin Concentration 34.7 32.0 - 36.5 gm/dL CERNER MILLENNIUM Platelet 239 145 - 370 x10(3)/mc L CERNER MILLENNIUM RDW Standard Deviation 41.7 35.0 - 46.0 fL CERNER MILLENNIUM RDW coefficient of variation 12.5 10.9 - 14.4 % CERNER MILLENNIUM Mean Platelet Volume 11.7 9.0 - 12.0 fL CERNER MILLENNIUM Blood specimen (specimen) 02/02/2015 3:30 AM EDT 02/02/2015 4:06 AM EDT Narrative Resulting Agency Comment Spec In Lab Emeka Hernandez Jr., MD HEMATOLOGY ORDERAB LES Performing Organization Address City/[facility]/ZIP Co de Phone Number CERINES REILLYENNIUM * (ABNORMAL) Basic Metabolic Panel (non-fasting) (02/02/2015 3:30 AM EDT) [facility] Glucose 123 65 - 199 mg/dL CERNER MILLENNIUM Comment:Diabetes: >=200 mg/d L plus symptoms Blood Urea Nitrogen 6(L) 8 - 18 mg/dL CERNER MILLENNIUM Creatinine 0.63(L) 0.70 - 1.20 mg/dL CERNER MILLENNIUM Comment: Please note that the pediatric reference intervals supplied above were not validated at [facility]. Results from pediatric patients should be interpreted in conjunction to the patient's age, height and muscle mass. Sodium 137 135 - 145 mmol/L CERNER MILLENNIUM Potassium 3.6 3.5 - 5.0 mmol/L CERNER MILLENNIUM Comment: Please note: ??Patients with WBC >100,000 may have falsely elevated Potassium levels. ??For accurate Potassium quantification in these patients send serum separator tube (gold top) for subsequent determinations. ??Contact the Clinical Chemistry Laboratory if there are any questions. Chloride 98 98 - 107 mmol/L CERNER MILLENNIUM Carbon Dioxide 25 22 - 31 mmol/L CERNER MILLENNIUM Anion Gap 14 5 - 15 mmol/L CERNER MILLENNIUM Calcium 8.9 8.5 - 10.5 mg/dL CERNER MILLENNIUM Est Glomerular Filtration Rate >60 >=60 CERNER MILLENNIUM Comment: This estimated GFR (eGFR) value was [...] the following links into your internet browser. [email or web address] Blood specimen (specimen) 02/02/2015 3:30 AM EDT 02/02/2015 4:06 AM EDT Narrative Resulting Agency Comment Spec In Lab Emeka Hernandez Jr., MD CHEMISTRY ORDERABL ES [facility] * SCAN DOC: IMPLANTABLE DEVICES (02/02/2015 12:00 AM EDT) Scanning Provider MEDIA MGR SCAN EXT O RDR/RSLT * SCAN DOC: ECG (02/02/2015 12:00 AM EDT) Scanning Provider MEDIA MGR SCAN EXT O RDR/RSLT * Differential, Automated (02/01/2015 10:38 AM EDT) Neutrophil % 67.6 % CERNER MILLENNIUM Neutrophil Absolute 4.23 1.50 - 6.30 x10(3)/mcL CERNER MILLENNIUM Lymph % 21.9 % CERNER MILLENNIUM Lymphocytes Abs 1.4 1.0 - 3.6 x10(3)/mcL CERNER MILLENNIUM Monocyte % 5.6 % CERNER MILLENNIUM Monocyte Abs 0.4 0.2 - 1.0 x10(3)/mcL CERNER MILLENNIUM Eos % 4.2 % CERNER MILLENNIUM Eosinophils Abs 0.3 0.0 - 0.5 x10(3)/mcL CERNER MILLENNIUM Basophil % 0.5 % CERNER MILLENNIUM Baso Absolute 0.0 0.0 - 0.2 x10(3)/mcL CERNER MILLENNIUM Immature Gran % 0.20 % CERN ER MILLENNIUM Comment: Immature granulocytes(IG's)percentage and absolute count will include metamyelocytes, myelocytes, and promyelocytes. Blood smears from CBCs yielding IG's will be scanned manually for concordance. If this scan disagrees with the automated IG or if promyelocytes are noted, a manual differential will be performed. Immature Gran Absolute 0.01 0.00 - 0.05 x10(3)/mcL CERNER MILLENNIUM Blood specimen (specimen) 02/01/2015 10:38 AM EDT 02/01/2015 10:38 AM EDT Narrative Resulting Agency Comment Spec In Lab Emeka Hernandez Jr., MD HEMATOLOGY ORDERAB LES CERNER MILLENNIUM * Hemogram (02/01/2015 10:38 AM EDT) [facility] White Blood Cell 6.2 4.0 - 10.0 x10(3)/mcL CERNER MILLENNIUM Red Blood Cell 3.98 3.93 - 5.22 x10(6)/mcL CERNER MILLENNIUM Hemoglobin 12.6 11.2 - 15.7 gm/dL CERNER MILLENNIUM Hematocrit 36.8 34.0 - 45.0 % CERNER MILLENNIUM Mean Cell Volume 92.5 79.0 - 94.0 fL CERNER MILLENNIUM Mean Cell Hemoglobin 31.7 26.6 - 32.2 pg CERNER MILLENNIUM Mean Cell Hemoglobin Concentration 34.2 32.0 - 36.5 gm/dL CERNER MILLENNIUM Platelet 201 145 - 370 x10(3)/mcL CERNER MILLENNIUM RDW Standard Deviation 43.1 35.0 - 46.0 fL CERNER MILLENNIUM RDW coefficient of variation 12.7 10.9 - 14.4 % CERNER MILLENNIUM Mean Platelet Volume 11.4 9.0 - 12.0 fL CERNER MILLENNIUM Blood specimen (specimen) 02/01/2015 10:38 AM EDT 02/01/2015 10:38 AM EDT Narrative Resulting Agency Comment Spec In Lab Emeka Hernandez Jr., MD HEMATOLOGY ORDERAB LES [facility] * (ABNORMAL) Basic Metabolic Panel (non-fasting) (02/01/2015 10:38 AM EDT) [facility] Glucose 117 65 - 199 mg/dL CERNER MILLENNIUM Comment:Diabetes: >=200 mg/d L plus symptoms Blood Urea Nitrogen 12 8 - 18 mg/dL [facility] MILL[facility] Creatinine 0.68(L) 0.70 - 1.20 mg/dL CERNER MILLENNIUM Comment: Please note that the pediatric reference intervals supplied above were not validated at [facility]. Results from pediatric patients should be interpreted in conjunction to the patient's age, height and muscle mass. Sodium 143 135 - 145 mmol/L [facility] MILLENNIUM Potassium 3.6 3.5 - 5.0 mmol/L CERNER MILLENNIUM Comment: Please note: ??Patients with WBC >100,000 may have falsely elevated Potassium levels. ??For accurate Potassium quantification in these patients send serum separator tube (gold top) for subsequent determinations. ??Contact the Clinical Chemistry Laboratory if there are any questions. Chloride 104 98 - 107 mmol/L CERNER MILLENNIUM Carbon Dioxide 24 22 - 31 mmol/L CERNER MILLENNIUM Anion Gap 15 5 - 15 mmol/L CERNER MILLENNIUM Calcium 8.1(L) 8.5 - 10.5 mg/dL CERNER MILLENNIUM Est Glomerular Filtration Rate >60 >=60 CERNER MILLENNIUM Comment: This estimated GFR (eGFR) value was [...] the following links into your internet browser. [email or web address] Blood specimen (specimen) 02/01/2015 10:38 AM EDT 02/01/2015 10:38 AM EDT Narrative Resulting Agency Comment Spec In Lab Emeka Hernandez Jr., MD CHEMISTRY ORDERABL ES [facility] * Kidney Stone Analysis (02/01/2015 9:50 AM EDT) Kidney Stone Analysis (MAY) Test ?Result ?Flag ??Unit ??RefValue Kidney Stone Analysis ??Source: ? Left Kidney ??1st Constituent: 60% Calcium phosphate (apatite) ??2nd Constituent: 30% Magnesium ammonium phosphate (struvite) ??3rd Constituent: 10% Calcium oxalate dihydrate ??Comment calcium carbonate present Test Performed by: [place] [address] [employer] Supervisor: Foreign Guerrero II, M.D., Ph.D. [facility] Calculus specimen (specimen) Other / Unknown 02/01/2015 9:50 AM EDT 02/01/2015 11:29 AM EDT Narrative Resulting Agency Comment Spec In Lab Emeka Hernandez Jr., MD LAB SEND OUT ORDER JU Performing Organization Address [facility] Co de Phone Number [facility]ER FREDERICK * Antibody screen (02/01/2015 6:31 AM EDT) Ab Screen Interp Negative [facility]ER[facility] Expires at [id number] on: [id number] [facility] Blood specimen (specimen) 02/01/2015 6:31 AM EDT 02/01/2015 6:38 AM EDT Narrative Resulting Agency Comment Spec In Lab Emeka Hernandez Jr., MD BLOOD BANK LAB ORD ERABLES Performing Organization Address [facility] de Phone Number ASTER FREDERICK * ABO/Rh Typing (02/01/2015 6:31 AM EDT) ABORH Type O Neg [facility] Blood specimen (specimen) 02/01/2015 6:31 AM EDT 02/01/2015 6:38 AM EDT Narrative Resulting Agency Comment Spec In Lab Emeka Hernandez Jr., MD BLOOD BANK LAB ORD ERABLES Performing Organization Address [facility] Co de Phone Number [facility] FR[facility] documented in this encounter Visit Diagnoses Not on filedocumented in this encounter Administered Medications Inactive Administered Medications - up to 3 most recent administrations Medication Order MAR Action Action Date Dose Rate Site aMILoride (MIDAMOR) tablet 5 mg 5 mg, Oral, DAILY, First dose on Nithya 02/01/15 at 1300, Until Discontinued, Routine Given 02/02/2015 9:08 AM EDT 5 mg Given 02/01/2015 3:03 PM EDT 5 mg BUpivacaine (PF) (MARCAINE) 0.5 % (5 mg/mL) injection ONCE PRN, Starting on Nithya 02/01/15 at 1004, Until Nithya 02/01/15 at 1142, Intra-Operative (Intra-Procedure), Routine Given 02/01/2015 10:04 AM EDT 10 mLs 19- Surgical Site docusate sodium (COLACE) capsule 100 mg 100 mg, Oral, 2 TIMES DAILY, First dose on Nithya 02/01/15 at 1215, Until Discontinued, Recovery (Recovery-Hospital Unit), Routine Given 02/02/2015 9:00 AM EDT 100 mg Given 02/01/2015 9:58 PM EDT 100 mg Given 02/01/2015 1:54 PM EDT 100 mg hydrochlorothiazide (HYDRODIURIL) tablet 12.5 mg 12.5 mg, Oral, 2 TIMES DAILY, First dose on Nithya 02/01/15 at 1300, Until Discontinued, Recovery (Recovery-Hospital Unit), Routine Given 02/02/2015 9:08 AM ED T 12.5 mg Given 02/01/2015 3:01 PM EDT 12.5 mg HYDROmorphone (DILAUDID) 1 mg/mL SHRIMPING [employer]AT CAPTAIN 30 mL Intravenous, SHRIMPING BOAT CAPTAIN ONLY, Starting on Nithya 02/01/15 at 1100, Until Thu02/02/15 at 1922, Recovery (Recovery-Hospital Unit) New Syringe/Cartridge 02/01/2015 11:00 AM EDT HYDROmorphone (DILAUDID) syringe 0.2-0.4 mg 0.2-0.4 mg, Intravenous, EVERY 5 MIN PRN, Pain, Starting on Nithya 02/01/15 at 0955, Until Nithya 02/01/15 at 1142, For moderate pain (4-6) give: 0.2 mg every 5 minute prn For severe pain (7-10) give: 0.4 mg every 5 minutes prn Maximum dose: 4 mg per hour Hold for respiratory rate less than 10 per minute., PACU Recovery Given 02/01/2015 10:54 AM EDT 0.2 mg Given 02/01/2015 10:36 AM EDT 0.2 mg iohexol (OMNIPAQUE) 300 mg/mL solution ONCE PRN, Starting on Nithya 02/01/15 at 0910, Until Nithya 02/01/15 at 1142, Intra-Operative (Intra-Procedure), Routine Given 02/01/2015 9:10 AM EDT 250 mLs 19- Surgical Site lactated ringers infusion 1,000 mL 1,000 mL, at 100 mL/hr, Intravenous, CONTINUOUS, Starting on Nithya 02/01/15 at 0700, Until Nithya 02/01/15 at 1142, Day of Surgery (Day of Procedure) New Bag 02/01/2015 6:53 AM EDT 1,000 mLs 100 mL/hr lidocaine-EPINEPHrine 1 %-1:200,000 injection ONCE PRN, Starting on Nithya 02/01/15 at 1005, Until Nithya 02/01/15 at 1142, Intra-Operative (Intra-Procedure), Routine Given 02/01/2015 10:05 AM EDT 10 mLs 19- Surgical Site ondansetron (ZOFRAN) injection 4 mg 4 mg, Intravenous, EVERY 8 HOURS PRN, Starting on Nithya 02/01/15 at 1042, Until Thu02/02/15 at 1922, Nausea, May repeat times one in 30 minutes if ineffective. If multiple antiemetics are ordered, use ondansetron first., Recovery (Recovery-Hospital Unit) Given 02/02/2015 1:56 AM EDT 4 mg Given 02/01/2015 5:16 PM EDT 4 mg ondansetron (ZOFRAN) tablet 4 mg 4 mg, Oral, EVERY 8 HOURS PRN, Starting on Nithya 02/01/15 at 1042, Until Thu02/02/15 at 1922, Nausea, Vomiting, If multiple antiemetics are ordered, use ondansetron first. PO Preferred. If patient unable to take PO, may give IV if ordered. May repeat times one in 45 minutes if ineffective., Recovery (Recovery-Hospital Unit), Routine Given 02/02/2015 9:06 AM EDT 4 mg oxyCODONE (ROXICODONE) immediate release tablet 5 mg 5 mg, Oral, EVERY 4 HOURS PRN, Starting on Nithya 02/01/15 at 1042, Until Thu02/02/15 at 1922, Pain, Recovery (Recovery-Hospital Unit), Routine Given 02/02/2015 1:29 PM EDT 5 mg Given 02/02/2015 9:05 AM EDT 5 mg Given 02/02/2015 3:04 AM EDT 5 mg potassium chloride (K-DUR/KLOR-CON) extended release tablet 20 mEq 20 mEq, Oral, 2 TIMES DAILY, First dose on Nithya 02/01/15 at 1215, Until Discontinued, 20 mEq tablet may be dissolved in water for administration, Recovery (Recovery-Hospital Unit), Routine Given 02/01/2015 1:55 PM EDT 20 mEq potassium Citrate (UROCIT) tablet SR TbSR 10 mEq 10 mEq, Oral, 3 TIMES DAILY, First dose on Nithya 02/01/15 at 1500, Until Discontinued, Recovery (Recovery-Hospital Unit), Routine Given 02/02/2015 2:48 PM EDT 1 0 mEq Given 02/02/2015 9:09 AM EDT 10 mEq Given 02/01/2015 10:42 PM EDT 10 mEq sodium chloride 0.9 % flush 5 mL 5 mL, Intravenous, 2 TIMES DAILY, First dose on Nithya 02/01/15 at 1215, Until Discontinued, Recovery (Recovery-Hospital Unit), Routine Given 02/02/2015 9:10 AM EDT 5 mLs Given 02/01/2015 9:58 PM EDT 5 mLs sodium chloride 0.9% 500 mL IV bolus Intravenous, ONCE, 1 dose, On Thu02/02/15 at 1230 Given 02/02/2015 12:21 PM EDT sodium chloride 0.9% infusion 125 mL/hr, Intravenous, CONTINUOUS, Starting on Nithya 02/01/15 at 1100, Until Thu02/02/15 at 1922, Recovery (Recovery-Hospital Unit) New Bag 02/02/2015 10:20 AM EDT 125 mL/hr 125 m L/hr New Bag 02/02/2015 2:04 AM EDT 125 mL/hr 125 mL/hr New Bag 02/01/2015 6:54 PM EDT 125 mL/hr 125 mL/hr SUMAtriptan (IMITREX) tablet 50 mg 50 mg, Oral, EVERY 8 HOURS PRN, Starting on Nithya 02/01/15 at 1155, Until Thu02/02/15 at 1922, Migraine, Recovery (Recovery-Hospital Unit), STAT Given 02/01/2015 10:44 PM EDT 50 mg tamsulosin (FLOMAX) capsule 0.4 mg 0.4 mg, Oral, NIGHTLY, First dose on Nithya 02/01/15 at 2100, Until Discontinued, Recovery (Recovery-Hospital Unit), Routine Given 02/01/2015 9:57 PM EDT 0.4 mg documented in this encounter Active and Recently Administered Medications Times are shown in EDT. Scheduled Medication Order 01/31/2015 02/01/2015 02/02/2015 aMILoride (MIDAMOR) tablet 5 mg (CANCELED) 5 mg, Oral, DAILY, First dose on Nithya 02/01/15 at 1300, Until Discontinued, Routine 1503 (Given - Provider: Virginia Shaffer RN) 0908 (Given - Provider: Evelyn Waters, FANNY) clindamycin (CLEOCIN) 600mg in dextrose 5% 50mL (CANCELED) 600 mg, Intravenous, EVERY 8 HOURS, First dose on Nithya 02/01/15 at 0700, Until Discontinued, Administer over 20 Minutes, Day of Surgery (Day of Procedure), Indication for (Active or Suspected): Prophylaxis 0700 (Due)0749 (Given - Provider: Yoav Arnett DO) docusate sodium (COLACE) capsule 100 mg 100 mg, Oral, 2 TIMES DAILY, First dose on Nithya 02/01/15 at 1215, Until Discontinued, Recovery (Recovery-Hospital Unit), Routine 1354 (Given - Provider: Virginia Shaffer RN)2158 (Given - Provider: Lona Nguyen RN) 0900 (Given - Provider: Evelyn Waters, FANNY) gentamicin (GARAMYCIN) 82 mg in sodium chloride 0.9% 102.05 mL (COMPLETED) 82 mg (1 mg/kg/dose ? 82 kg Order-specific weight), Intravenous, ONCE, 1 dose, On Nithya 02/01/15 at 0700, Administer over 60 Minutes, This medication may have an associated drug lab level. Please check for lab orders., Day of Surgery (Day of Procedure), Indication for (Active or Suspected): Prophylaxis 0749 (Given - Provider: Yoav Arnett DO) hydrochlorothiazide (HYDRODIURIL) tablet 12.5 mg (CANCELED) 12.5 mg, Oral, 2 TIMES DAILY, First dose on Nithya 02/01/15 at 1300, Until Discontinued, Recovery (Recovery-Hospital Unit), Routine 1501 (Given - Provider: Virginia Shaffer RN)2100 (Not Given - Provider: Lona Nguyen RN - Reason: See comment - Comment: pt. refused takes once a day, had prior today) 0908 (Given - Provider: Evelyn Waters RN) potassium chloride (K-DUR/KLOR-CON) extended release tablet 20 mEq (CANCELED) 20 mEq, Oral, 2 TIMES DAILY, First dose on Nithya 02/01/15 at 1215, Until Discontinued, 20 mEq tablet may be dissolved in water for administration, Recovery (Recovery-Hospital Unit), Routine 1355 (Given - Provider: Virginia Shaffer RN)2100 (Not Given - Provider: Lona Nguyen RN - Reason: Medication Discontinued) potassium Citrate (UROCIT) tablet SR TbSR 10 mEq (CANCELED) 10 mEq, Oral, 3 TIMES DAILY, First dose on Nithya 02/01/15 at 1500, Until Discontinued, Recovery (Recovery-Hospital Unit), Routine 1500 (Not Given - Provider: Virginia Shaffer RN - Reason: Medication not available)2242 (Given - Provider: Lona Nguyen RN) 0909 (Given - Provider: Evelyn Waters RN)1448 (Given - Provider: Evelyn Waters RN) sodium chloride 0.9 % flush 5 mL (CANCELED) 5 mL, Intravenous, 2 TIMES DAILY, First dose on Nithya 02/01/15 at 1215, Until Discontinued, Recovery (Recovery-Hospital Unit), Routine 1215 (Not Given - Provider: Virginia Shaffer RN - Reason: See comment - Comment: IV infusing)2158 (Given - Provider: Lona Nguyen RN) 0910 (Given - Provider: Evelyn Waters RN) sodium chloride 0.9% 500 mL IV bolus (COMPLETED) Intravenous, ONCE, 1 dose, On Thu02/02/15 at 1230 1221 (Given - Provid er: Luis Gibbs RN) tamsulosin (FLOMAX) capsule 0.4 mg (CANCELED) 0.4 mg, Oral, NIGHTLY, First dose on Nithya 02/01/15 at 2100, Until Discontinued, Recovery (Recovery-Hospital Unit), Routine 2157 (Given - Provider: Lona Nguyen, FANNY) Continuous Medication Order 01/31/2015 02/01/2015 02/02/2015 HYDROmorphone (DILAUDID) 1 mg/mL SHRIMPING BOAT CAPTAIN 30 mL (CANCELED) Intravenous, SHRIMPING [employer]AT [employer]TAIN ONLY, Starting on Nithya 02/01/15 at 1100, Until Thu02/02/15 at 1922, Recovery (Recovery-Hospital Unit) 1100 (New Syringe/Cartridge - Provider: Frida Pinon, FANNY) lactated ringers infusion 1,000 mL (CANCELED) 1,000 mL, at 100 mL/hr, Intravenous, CONTINUOUS, Starting on Nithya 02/01/15 at 0700, Until Nithya 02/01/15 at 1142, Day of Surgery (Day of Procedure) 0653 (New Bag - Provider: Shu Gallagher RN) sodium chloride 0.9% infusion (CANCELED) 125 mL/hr, Intravenous, CONTINUOUS, Starting on Nithya 02/01/15 at 1100, Until Thu02/02/15 at 1922, Recovery (Recovery-Hospital Unit) 1046 (New Bag - Provider: Frida Pinon, FANNY)1854 (New Bag - Provider: Virginia Shaffer, FANNY) 0204 (New Bag - Provider: Lona Nguyen, FANNY)1020 (New Bag - Provider: Evelyn Waters, RN) PRN Medication Order 01/31/2015 02/01/2015 02/02/2015 BUpivacaine (PF) (MARCAINE) 0.5 % (5 mg/mL) injection (CANCELED) ONCE PRN, Starting on Nithya 02/01/15 at 1004, Until Nithya 02/01/15 at 1142, Intra-Operative (Intra-Procedure), Routine 1004 (Given - Provider: Emeka Hernandez Jr., MD - Comment: Bupivacaine 0.5 % mixed 1:1 with Lidocaine 1% with epinephrine 1:200,000. Total of 20 cc of local aministered.) HYDROmorphone (DILAUDID) syringe 0.2-0.4 mg (CANCELED) 0.2-0.4 mg, Intravenous, EVERY 5 MIN PRN, Pain, Starting on Nithya 6/15 at 0955, Until Nithya 6//15 at 1142, For moderate pain (4-6) give: 0.2 mg every 5 minute prn For severe pain (7-10) give: 0.4 mg every 5 minutes prn Maximum dose: 4 mg per hour Hold for respiratory rate less than 10 per minute., PACU Recovery 1036 (Given - Provider: Frida Pinon, FANNY)1054 (Given - Provider: Frida Pinon RN) iohexol (OMNIPAQUE) 300 mg/mL solution (CANCELED) ONCE PRN, Starting on Nithya 615 at 0910, Until Nithya 6/15 at 1142, Intra-Operative (Intra-Procedure), Routine 0910 (Given - Provider: Emeka Hernandez Jr., MD - Comment: Mixed 1:1 with saline.) lidocaine-EPINEPHrine 1 %-1:200,000 injection (CANCELED) ONCE PRN, Starting on Nithya 615 at 1005, Until Nithya 6//15 at 1142, Intra-Operative (Intra-Procedure), Routine 1005 (Given - Provider: Emeka Hernandez Jr., MD - Comment: Bupivacaine 0.5 % mixed 1:1 with Lidocaine 1% with epinephrine 1:200,000. Total of 20 cc of local aministered.) ondansetron (ZOFRAN) injection 4 mg (CANCELED)(Linked Group 1) 4 mg, Intravenous, EVERY 8 HOURS PRN, Starting on Nithya 615 at 1042, Until Thu02/02/15 at 1922, Nausea, May repeat times one in 30 minutes if ineffective. If multiple antiemetics are ordered, use ondansetron first., Recovery (Recovery-Hospital Unit) 1716 (Given - Provider: Virginia Shaffer RN) 0156 (Given - Provider: Lona Nguyen RN)0906 (See Alternative - Provider: Evelyn Waters RN) ondansetron (ZOFRAN) tablet 4 mg (CANCELED)(Linked Group 1) 4 mg, Oral, EVERY 8 HOURS PRN, Starting on Nithya 6/4/15 at 1042, Until Thu02/02/15 at 1922, Nausea, Vomiting, If multiple antiemetics are ordered, use ondansetron first. PO Preferred. If patient unable to take PO, may give IV if ordered. May repeat times one in 45 minutes if ineffective., Recovery (Recovery-Hospital Unit), Routine 1716 (See Alternative - Provider: Virginia Shaffer, RN) 0156 (See Alternative - Provider: Lona Nguyen RN)0906 (Given - Provider: Evelyn Waters RN) oxyCODONE (ROXICODONE) immediate release tablet 5 mg 5 mg, Oral, EVERY 4 HOURS PRN, Starting on Nithya 02/01/15 at 1042, Until Thu02/02/15 at 1922, Pain, Recovery (Recovery-Hospital Unit), Routine 1849 (Given - Provider: Virginia Shaffer RN) 0304 (Given - Provider: Lona Nguyen RN)0905 (Given - Provider: Evelyn Waters RN)1329 (Given - Provider: Maria D Jackson RN) SUMAtriptan (IMITREX) tablet 50 mg (CANCELED) 50 mg, Oral, EVERY 8 HOURS PRN, Starting on Nithya 02/01/15 at 1155, Until Thu02/02/15 at 1922, Migraine, Recovery (Recovery-Hospital Unit), STAT 2244 (Given - Provider: Lona Nguyen RN - Comment: migraine hd. ache 02/07) Linked Groups Order Group 1: ondansetron (ZOFRAN) tablet 4 mg (CANCELED)Jump to med 4 mg, Oral, EVERY 8 HOURS PRN, Starting on Nithya 02/01/15 at 1042, Until 02/02/15 at 1922, Nausea, Vomiting, If multiple antiemetics are ordered, use ondansetron first. PO Preferred. If patient unable to take PO, may give IV if ordered. May repeat times one in 45 minutes if ineffective., Recovery (Recovery-Hospital Unit), Routine Or ondansetron (ZOFRAN) injection 4 mg (CANCELED)Jump to med 4 mg, Intravenous, EVERY 8 HOURS PRN, Starting on Nithya 02/01/15 at 1042, Until 02/02/15 at 1922, Nausea, May repeat times one in 30 minutes if ineffective. If multiple antiemetics are ordered, use ondansetron first., Recovery (Recovery-Hospital Unit) documented in this encounter Care Teams Director Staffing Relationship Specialty Start Date End Date Belem Mike MD [address] [place] [address] PCP - General 07/23/10 10/08/15 [facility] [address] [address] [place] [address] Product TrainerPlate [employer] 03/26/11 documented as of this encounter
--- OUTSIDE RECORDS SUMMARY | 2024-05-27 02:34 | XMS_ITS | Encounter Summary ---
Author Organization [facility] Address [facility] [address] [place] [address] Care Team Providers Care Senior Android Developer Name Role Phone Jim Wei MD Primary Care Provider [phone] Encounter Details Date Type Department Care Team (Late st Contact Info) Description 01/09/2015 [place] [id number] Kourtney Clark MD [facility] [place] [address] Social History Tobacco Use Types Packs/Day Years Used Date Smoking Tobacco: Never Alcohol Use Standard Drinks/Week Comments Yes 0 (1 standard drink = 0.6 oz pur e alcohol) occasional Sex and Gender Information Value Date Recorded Sex Assigned at Not on file Gender Identity Not on file Sexual Orientation Not on file documented as of this encounter Miscellaneous Notes * Telephone Encounter - Aleisha Stevenson LNA - 01/09/2015 2:02 PM EDT Called patient to discuss urine culture results From [facility] on 01/05/2015. Patient is having pain from her kidney stones on the right side, as well as frequency, urgency and burning. Per Dr. Clark patient will take macrobid 100 mg po bid for seven days. Patient agreed, and will give us a call if her symptoms aren't resolving. 10,000-50,000 Staphylococcus saprophyticus < 10,000 gram positive mixed sarita. documented in this encounter Plan of Treatment Not on file documented as of this encounter Visit Diagnoses Not on filedocumented in this encounter Care Teams Senior Android Developer Relationship Specialty Start Date End Date Jim Wei MD [address] [place] [address] PCP - General 07/23/10 10/08/15 [facility] [address] [address] [place] [address] Truck SpotterWet Process Assistant [facility] 03/26/11 documented as of this encounter
--- OUTSIDE RECORDS SUMMARY | 2024-05-27 02:34 | XMS_ITS | Encounter Summary ---
Author Organization [facility] Address [facility] [address] [place] [address] Care Team Providers Care Senior Art Director Name Role Phone Jim Wei MD Primary Care Provider [phone] Reason for Visit * Reason Comments Nephrolithiasis Encounter Details Date Type Department Care Team (Latest Contact Info) Description 02/22/2015 11:40 AM EDT Procedure [place] [address] Sowmya Ingram Jr., MD [facility] [place] [address] Kidney stone on left side (Primary Dx) Discharge Disposition: Home Social History Tobacco Use [...] Sign Reading Time Taken Comments Blood Pressure 135/89 02/22/2015 11:38 AM EDT Pulse 84 02/22/2015 11:38 AM EDT Temperature - - Respiratory Rate 20 02/22/2015 11:38 AM EDT Oxygen Saturation 98% 02/22/2015 11:38 AM EDT Inhaled Oxygen Concentration - - Weight 81.6 kg (180 lb) 02/22/2015 11:38 AM EDT Height 162.6 cm (5' 4) 02/22/2015 11:38 AM EDT Body Mass Index 30.9 02/22/2015 11:38 AM EDT documented in this encounter Patient Instructions * Patient Instructions* David Mcneill LPN - 02/22/2015 11:55 AM EDT Instructions following Cystoscopy Activity: As tolerated by your comfort level. Fluids: You should increase your water today. Avoid coffee, tea and cola. You do not need to ounces of water today. Urination: You will likely have a small amount of blood in your urine for the next several days. This is normal; however, if you are passing large amounts of blood clots or are unable to void please call our office at [phone] before 5PM or [phone] after hours. Please call if: * you have copious blood in your urine * fevers greater than 101.3 F * you are unable to void The number for questions is [phone] before 5 PM weekdays and [phone] after 5 PM and weekends. Follow-up: With Dr Ingram 4 to 6 weeks documented in this encounter Procedure Notes * Sowmya Ingram Jr., MD - 02/22/2015 12:17 PM EDTAssociated Order(s): CYSTO, STENT REMOVAL Pre-Procedure Diagnose(s): Kidney stone on left side Barbi Ivey returns for left ureteral stent removal after undergoing left pcnl. This pleasant 39 y.o. year old female underwent left pcnl on 02/01/15. Intraoperative findings were notable for lower pole left renal staghorn stone. She was rendered stone free --confirmed on CT --andpresents today for planned stent removal. She has known hypercalciuric/hyperoxaluric stone disease. Metabolic evaluation has been notable forhypercalciuria, borderline normal urinary citrate, isolated low volume and hyperoxaluria. She has reduced oxalate and sodium intake and was restarted on HCTZ as well as amiloride by Dr Melvin. Past medical history: HTN, urolithiasis. Past surgical history: right ureteroscopy; Left PCNL Family history: no fam hx of stones Social History: no tobacco, social EtOH. Stone analysis: 60% Calcium phosphate (apatite); 30% Magnesium ammonium phosphate (struvite); 10% Calcium oxalate dihydrate We discussed the procedure, risks and planned benefit. We discussed the need to remove the stent asthey cannot stay in indefinitely, as well as the risk of possible need for stent or nephrostomy replacement if there was any residual or future ureteral obstruction. Informed consent was obtained. Barbi Ivey was taken to the cystoscopy room and prepped and draped by our urology nurse. Prophylactic antibiotic administration was confirmed. Topical viscous lidocaine gel was applied to the urethra for local anesthetic. A timeout was performed. Flexible cystoscopy was performed. The urethra was without abnormality. The bladder was entered and inspected. No focal mucosal abnormality was seen.The stent was seen emanating from the left ureteral orifice. It was grasped and extracted. It was inspected and found to be intact. She tolerated the procedure well. I instructed Barbi Ivey of the need to return in approximately 6-8 weeks for renal ultrasound toensure that there is no residual hydronephrosis. I cautioned her to contact us immediately with increasing pain, fever, or chills as this could suggest obstruction and may need to be further evaluated on an urgent or emergent basis. I have asked her to call with any additional questions. documented in this encounter Plan of Treatment Not on file documented as of this encounter Procedures Procedure Name Priority Date/Time Associated Diagnosis Comments CYSTO, STENT REMOVAL Routine 02/22/2015 12:44 PM EDT Kidney stone on left side documented in this encounter Results * US retroperitoneal complete (04/09/2015 2:41 PM EDT) Anatomical Region Laterality Modality Abdomen Ultrasound 04/09/2015 2:41 PM EDT Narrative 04/09/2015 2:47 PM EDT Renal ?(Signed Final 04/09/2015 02:46 ? pm) Patient Info ID #: ? [id number] ?: ??[birth year] (39 yrs) Name: ? BARBI IVEY ?Visit Date: 04/09/2015 02:41 pm Performed By Performed By: ?Diamond Vargas RDMS Attending: ? David MILNER, Tracy Cooper Referred By: ? SOWMYA INGRAM MD Service(s) Provided ??URETRO - Retroperitoneal Complete - [id number] ? [id number] Indications ??? hydro or stone Right Kidney Size (cm) ?L: ??10.8 Cortical Thickness: ?Normal Cortical Echogenicity: ?? Normal Hydronephrosis: ?No sonographic evidence Left Kidney Size (cm) ?L: ??10.9 Cortical Thickness: ?Normal Cortical Echogenicity: ?? Normal Hydronephrosis: ?No sonographic evidence Urinary Bladder Pre-void (cm) ? L: ??0.7 ? AP: ??3.2 ? TV: ??4.1 Vol (ml): ?4.8 Comment: ?Partially distended, normal contour Impression Normal study. No stones or hydronephrosis ? Tracy Hernandez MD Electronically Signed Final Report ?? 04/09/2015 02:46 pm Procedure Note Tracy Hernandez MD - 04/09/2015 Renal (Signed Final 04/09/2015 02:46 pm) Patient Info ID #: [id number] : [id number] (39 yrs) Name: BARBI IVEY Visit Date: 04/09/2015 02:41 pm Performed By Performed By: Diamond Vargas RDMS Attending: Tracy Hernandez MD Referred By: SOWMYA INGRAM MD Service(s) Provided URETRO - Retroperitoneal Complete - [id number] Indications ? hydro or stone Right Kidney Size (cm) L: 10.8 Cortical Thickness: Normal Cortical Echogenicity: Normal Hydronephrosis: No sonographic evidence Left Kidney Size (cm) L: 10.9 Cortical Thickness: Normal Cortical Echogenicity: Normal Hydronephrosis: No sonographic evidence Urinary Bladder Pre-void (cm) L: 0.7 AP: 3.2 TV: 4.1 Vol (ml): 4.8 Comment: Partially distended, normal contour Impression Normal study. No stones or hydronephrosis Tracy Hernandez MD Electronically Signed Final Report 04/09/2015 02:46 pm Sowmya Ingram Jr., MD IM US GEN ORDERAB LES * Cysto, Stent Removal, clinic (02/22/2015 12:44 PM EDT) Narrative Sowmya Ingram Jr., MD - 02/22/2015 12:44 PM EDT Sowmya Ingram Jr., MD ? 02/22/2015 12:44 PM Barbi Ivey returns for left ureteral stent removal after undergoing left pcnl. This pleasant ??39 y.o. year old female underwent left pcnl on 02/01/15. ??Intraoperative findings were notable for lower pole left renal staghorn stone. ??She was rendered stone free --confirmed on CT --and presents today for planned stent removal. She has known hypercalciuric/hyperoxaluric stone disease. Metabolic evaluation has been notable for hypercalciuria, borderline normal urinary citrate, isolated low volume and hyperoxaluria. She has reduced oxalate and sodium intake and was restarted on HCTZ as well as amiloride by Dr Melvin. Past medical history: HTN, urolithiasis. Past surgical history: right ureteroscopy; Left PCNL Family history: no fam hx of stones Social History: no tobacco, social EtOH. Stone analysis: 60% Calcium phosphate (apatite); 30% Magnesium ammonium phosphate (struvite); 10% Calcium oxalate dihydrate We discussed the procedure, risks and planned benefit. We discussed the need to remove the stent as they cannot stay in indefinitely, as well as the risk of possible need for stent or nephrostomy replacement if there was any residual or future ureteral obstruction. Informed consent was obtained. Barbi Ivey was taken to the cystoscopy room and prepped and draped by our urology nurse. ??Prophylactic antibiotic administration was confirmed. ??Topical viscous lidocaine gel was applied to the urethra for local anesthetic. A timeout was performed. ??Flexible cystoscopy was performed. ??The urethra was without abnormality. ??The bladder was entered and inspected. ??No focal mucosal abnormality was seen. ??The stent was seen emanating from the left ureteral orifice. ??It was grasped and extracted. ?? It was inspected and found to be intact. ??She tolerated the procedure well. ?? I instructed ??Barbi Loni ??of the need to return in approximately 6-8 weeks for renal ultrasound to ensure that there is no residual hydronephrosis. ??I cautioned her to contact us immediately with increasing pain, fever, or chills as this could suggest obstruction and may need to be further evaluated on an urgent or emergent basis. ??I have asked her to call with any additional questions. Sowmya Ingram Jr., MD URO PROCEDURE W RF L ORDERABLES documented in this encounter Visit Diagnoses Diagnosis Kidney stone on left side- Primary Calculus of kidney Kidney stone on left side Calculus of kidney documented in this encounter Care Teams Senior Art Director Relationship Specialty Start Date End Date Jim Wei MD [address] [place] [address] PCP - General 07/23/10 10/08/15 [facility] [address] [address] [place] [address] Rice Drier OperatorAcquisitions Editor Medicine 03/26/11 documented as of this encounter
--- OUTSIDE RECORDS SUMMARY | 2024-05-27 02:34 | XMS_ITS | Encounter Summary ---
Author Organization Formerly [facility] Address [facility] [address] [address] Care Team Providers Care Button Sewer Hand Name Role Phone Law Santiago MD Primary Care Provider [phone] Encounter Details Date Type Department Care Team (Latest Contact Info) Description 10/09/2015 12:58 PM EST - 10/09/2015 11:59 PM [facility] Hospital [place] [address] Sowmya Hernandez Jr., MD [facility] [place] [address] Recurrent nephrolithiasis Discharge Disposition: Home Social History Tobacco Use [...] mg tablet Take by mouth as needed. hydrochlorothiazide (HYDRODIURIL) 12.5 mg Tablet Take 1 tablet by mouth 2 times daily. 180 tablet 3 10/09/2015 04/09/2016 potassium Citrate (UROCIT) 10 mEq (1,080 mg) Tablet Sustained ReleaseIndications:dalia cium oxalate renal calculi,calcium phosphate renal calculi Take 2 tablets by mouth 2 times daily (with meals). Indications: Calcium Oxalate Renal Calculi, Calcium Phosphate Renal Calculi 360 tablet 3 10/09/2015 04/09/2016 oxyCODONE (ROXICODONE) 5 mg Tablet Take 1-2 tablets by mouth every 4 hours as needed for Pain. 30 tablet 0 02/02/2015 12/08/2017 amiloride (MIDAMOR) 5 mg tabletIndications:Neph rolithiasis,Hypokalemi a Take 1 tablet by mouth daily. 90 tablet 3 03/16/2013 04/09/2016 documented as of this encounter Plan of Treatment Not on file documented as of this encounter Procedures Procedure Name Priority Date/Time Associated Diagnosis Comments US RETROPERITONEAL COMPLETE Routine 10/09/2015 1:22 PM EST Recurrent nephrolithiasis documented in this encounter Results * US Retroperitoneal Complete (10/09/2015 1:22 PM EST) Anatomical Region Laterality Modality Abdomen Ultrasound 10/09/2015 1:18 PM EST Impressions 10/09/2015 1:37 PM EST Impression Ultrasound - ??Retroperitoneal Complete - Summary Approximately 5 mm nonobstructing left inferior pole renal calculus. ??No other sonographically evident renal or bladder calculi. ??No hydronephrosis. I ??viewed the images and agree with the above interpretation. ? Arlen Vaughn MD Electronically Signed Final Report ?? 10/09/2015 01:37 pm Narrative 10/09/2015 1:37 PM EST Renal ?(Signed Final 10/09/2015 01:37 pm) Patient Info ID #: ? [id number] ?: ??[birth year] (39 yrs) Name: ? BARBI IVEY ?Visit Date: 10/09/2015 01:18 pm Performed By Performed By: ? Saranya Love RDMS Attending: ?Johana MILNER, Arlen Ruth Associate: ?Leslie MILNER, Kian Cooper Referred By: ?SOWMYA HERNANDEZ MD Service(s) Provided ??URETRO - Retroperitoneal Complete - [id number] ? [id number] Indications ??? new stone grwth Comparison Renal/bladder ultarsound 04/09/2015. Right Kidney Size (cm) ?L: ??10.2 Cortical Thickness: ?Normal Cortical Echogenicity: ?? Normal Hydronephrosis: ?No sonographic evidence Comment: ?No renal calculi seen. Left Kidney Size (cm) ?L: ??11.5 Cortical Thickness: ?Normal Cortical Echogenicity: ?? Normal Hydronephrosis: ?No sonographic evidence Comment: ?Nonobstructing inferior pole renal calculus ? measuring 5 mm. Urinary Bladder Pre-void (cm) ? L: ??3.0 ? AP: ??1.6 ? TV: ??4.2 Vol (ml): ?10.6 Comment: ?Partially distended, normal contour Procedure Note Arlen Vaughn MD - 10/09/2015 Renal (Signed Final 10/09/2015 01:37 pm) Patient Info ID #: [id number] : [birth year] (39 yrs) Name: BARBI IVEY Visit Date: 10/09/2015 01:18 pm Performed By Performed By: Saranya Love RDMS Attending: Arlen Vaughn MD Associate: Kian Nelson MD Referred By: SOWMYA HERNANDEZ MD Service(s) Provided URETRO - Retroperitoneal Complete - [id number] Indications ? new stone grwth Comparison Renal/bladder ultarsound 04/09/2015. Right Kidney Size (cm) L: 10.2 Cortical Thickness: Normal Cortical Echogenicity: Normal Hydronephrosis: No sonographic evidence Comment: No renal calculi seen. Left Kidney Size (cm) L: 11.5 Cortical Thickness: Normal Cortical Echogenicity: Normal Hydronephrosis: No sonographic evidence Comment: Nonobstructing inferior pole renal calculus measuring 5 mm. Urinary Bladder Pre-void (cm) L: 3.0 AP: 1.6 TV: 4.2 Vol (ml): 10.6 Comment: Partially distended, normal contour IMPRESSION Impression Ultrasound - Retroperitoneal Complete - Summary Approximately 5 mm nonobstructing left inferior pole renal calculus. No other sonographically evident renal or bladder calculi. No hydronephrosis. I viewed the images and agree with the above interpretation. Arlen Vaughn MD Electronically Signed Final Report 10/09/2015 01:37 pm Sowmya Hernandez Jr., MD IMG US GEN ORDERAB LES documented in this encounter Visit Diagnoses Diagnosis Recurrent nephrolithiasis Calculus of kidney documented in this encounter Care Teams Button Sewer Hand Relationship Specialty Start Date End Date Law Santiago MD PCP - General Family Medicine 10/09/15 04/08/16 [facility] [address] [address] [place] [address] Maintenance Department ManagerRouter Operator Radial Medicine 03/26/11 documented as of this encounter
--- OUTSIDE RECORDS SUMMARY | 2024-05-27 02:34 | XMS_ITS | Encounter Summary ---
Author Organization Formerly [facility] [place] [address] Care Team Providers Care Veterinarian Name Role Phone Jim Wei MD Primary Care Provider [phone] Encounter Details Date Type Department Care Team (Late st Contact Info) Description 02/08/2015 [place] [phone] Romel Pedersen MD [facility] [place] [address] Social History Tobacco Use Types Packs/Day Years [...] encounter Miscellaneous Notes * Telephone Encounter - Romel Pedersen - 02/08/2015 10:23 AM EDT Patient had inquiry about pain meds. Called, no answer, left a message Romel Pedersen MD [phone] documented in this encounter Plan of Treatment Not on file documented as of this encounter Visit Diagnoses Not on filedocumented in this encounter Care Teams Veterinarian Relationship Specialty Start Date End Date Jim Wei MD [address] [place] [address] PCP - General 07/23/10 10/08/15 [facility] [address] [address] [place] [address] Interchange AgentProbation Supervisor Medicine 03/26/11 documented as of this encounter
--- OUTSIDE RECORDS SUMMARY | 2024-05-27 02:34 | XMS_ITS | Encounter Summary ---
Author Organization [facility] Address [facility] [address] [address] Care Team Providers Care Printing Engineer Name Role Phone Jim Wei MD Primary Care Provider [phone] Encounter Details Date Type Department Care Team (Late st Contact Info) Description 01/05/2015 [place] [phone] Emeka Hernandez Jr., MD [facility] [place] [address] Social History Tobacco Use Types Packs/Day Years [...] Procedure Name Priority Date/Time Associated Diagnosis Comments FILM LIBRARY STORAGE ONLY CT ABDOMEN Routine 01/05/2015 10:05 AM EDT documented in this encounter Results * Film Library- Storage only CT Abdomen (01/05/2015 10:05 AM EDT) Anatomical Region Laterality Modality Abdomen Other 01/05/2015 10:0 5 AM EDT Narrative 01/08/2015 10:32 AM EDT This is a Non-reportable exam Procedure Note DAXA, UNSIGNED REPORT - 01/08/2015 This is a Non-reportable exam Emeka Hernandez Jr., MD [facility] FILM LIBRARY O RDERABLES documented in this encounter Visit Diagnoses Not on filedocumented in this encounter Care Teams Printing Engineer Relationship Specialty Start Date End Date Jim Wei MD [address] [place] [address] PCP - General 07/23/10 10/08/15 [facility] [address] [address] [place] [address] Sensor TechnicianDemonstrator Electric Gas Appliances Medicine 03/26/11 documented as of this encounter
--- OUTSIDE RECORDS SUMMARY | 2024-05-27 02:34 | XMS_ITS | Encounter Summary ---
Author Organization [facility] Address [facility] [address] [place] [address] Care Team Providers Care Marketing Teacher Name Role Phone Jim Wei MD Primary Care Provider [phone] Encounter Details Date Type Department Care Team (Late st Contact Info) Description 01/11/2015 2:43 PM EDT - 01/11/2015 4:03 PM EDT Surgery [place] [phone] Sowmya Ingram Jr., MD [facility] [place] [address] CYSTO, STENT PLACEMENT (WRVU 2.82) Social History Tobacco Use Types Packs/Day Years [...] away in 12-24 hours. * Patient Instructions* Justin Grayson - 01/11/2015 2:34 PM EDT Instructions following [...] to urinate please call our office at [phone] before 5PM or [phone] after hours. Ureteral Stent Patients: You have [...] side pain, you should call our office [phone] before 5PM or [phone] afterhours. Stent removal: The stent will be exchanged at the time of your stone surgery, February 01. Call Doctor for: Please call if you have copious blood in your urine, severe back or side pain, pain not controlled by pain medications, persistent nausea and vomiting, or for any fevers greater dojj520.3 F. The number for questions is [phone] before 5 PM weekdays and [phone] after 5 PM and weekends. Pain Medication: [...] - 01/11/2015 1:31 PM EDT Patient Name: Barbi Ivey Patient Age: 39 y.o. Birthdate: 1975 Admit date: 01/11/2015 Attending Physician: Sowmya Ingram Jr., MD No interval change from yesterday's H and P OK to proceed with stent documented in this encounter Miscellaneous Notes * Op Note - Sowmya Ingram Jr., MD - 01/11/2015 9:01 PM EDT [facility] [place] Patient Name: Barbi Ivey : [id number] MR#: [id number] Case Date: 01/11/2015 Surgeon: Surgeon(s) and Role: * Sowmya Ingram Jr., MD - Primary * Justin Garyson MD - Resident-Surgeon Chief Preoperative diagnosis: LEFT [...] with a Pollack catheter, we shot a iuss analyst fluoroscopy which clearly identified a large stone in the collecting system, we advanced the Pollack up to 28 cm at which length it was in the collecting system. We performed a pyelogram to identify a non-hydronephrotic but highly branching collecting system. We then placed a GlideWire through the Pollack, removed the Pollack and then placed a 7 Kazakh variable stent under fluoroscopic assisted guidance. Drainage was observed and good curl in the bladder. We emptied the bladder and concluded the case. * Brief Op Note - Sowmya Ingram Jr., MD - 01/11/2015 2:36 PM EDT Brief Operative Note Patient Name: Barbi Ivey : [id number] MR#: [id number] Case Date: 01/11/2015 Surgeon: Surgeon(s) and Role: [...] PM EDT) Urine Culture ? Patient Name: BARBI IVEY ? Ordered By: SOWMYA INGRAM JR ? MR#: [id number] ?LOC: ??SDP ? /Sex: ??1975 (39 years), [...] Given 01/11/2015 3:02 PM EDT 25 mcg iohexol (OMNIPAQUE) 300 mg/mL solution ONCE PRN, Starting on Nithya 01/11/15 at 1435, Until Nithya 01/11/15 at 1601, Intra-Operative (Intra-Procedure), Routine Given 01/11/2015 2:35 PM EDT 50 mLs 19- Surgical Site lactated ringers infusion [...] EVERY 4 HOURS PRN, Starting on Nithya 15 at 1516, Until Nithya 15 at 1921, Pain, Maximum dose of acetaminophen [...] solution (CANCELED) ONCE PRN, Starting on Nithya 01/11/15 at 1435, Until Nithya 15 at 1601, Intra-Operative (Intra-Procedure), Routine 1435 (Given - Provid er: Sowmya Ingram Jr., MD - Comment: diluted 1 to 1 with 0.9% normal saline) oxyCODONE (ROXICODONE) immediate release tablet 5 mg (CANCELED)(Linked Group 1) 5 mg, Oral, EVERY 4 HOURS PRN, Starting on Nithay 01/11/15 at 1516, Until Nithya 15 at 1921, Pain, mild to moderate pain (1-6), May give an additional 5 mg in 30 minutes once if pain not relieved., Routine 1524 (Given - Provid er: Kylee Westbrook RN) Linked Groups Order Group 1: oxyCODONE (ROXICODONE) immediate release tablet 5 mg (CANCELED)Jump to med 5 mg, Oral, EVERY 4 HOURS PRN, Starting on Nithya 15 at 1516, Until Nithya 5/15 at 1921, Pain, mild to moderate pain (1-6), May give an additional 5 mg in 30 minutes once if pain not relieved., Routine Or oxyCODONE (ROXICODONE) immediate release tablet 10 mg (CANCELED) 10 mg, Oral, EVERY 4 HOURS PRN, Starting on Nithya 01/11/15 at 1516, Until Nithya 01/11/15 at 1921, Pain, severe pain (7-10), May give an additional 5 mg in 30 minutes once if pain not relieved., Routine documented in this encounter Care Teams Marketing Teacher Relationship Specialty Start Date End Date Jim Wei MD [address] [place] [address] PCP - General 07/23/10 10/08/15 [facility] [address] [address] [place] [address] Transportation LeadWeb Retailer Medicine 03/26/11 documented as of this encounter
--- OUTSIDE RECORDS SUMMARY | 2024-05-27 02:34 | XMS_ITS | Encounter Summary ---
Author Organization [facility] [place] [address] Care Team Providers Care Scale Model Maker Name Role Phone Jim Wei MD Primary Care Provider [phone] Encounter Details Date Type Department Care Team (Late st Contact Info) Description 02/02/2015 Telephone [place] [phone] Kourtney Clark MD [facility] [place] [address] Social History Tobacco Use Types Packs/Day Years [...] encounter Miscellaneous Notes * Telephone Encounter - Kourtney Clark - 02/02/2015 8:49 PM EDT Pt s/p PCNL yesterday, discharged earlier today. Took her temp and it was 100.2. No other sxs: no redness, chills, nausea, etc. Told her to watch overnight, call back if fevers overnight or any othersymptoms and she would need to come in to the ED and get IV antibiotics. Patient agreed to plan, all questions answered. documented in this encounter Plan of Treatment Not on file documented as of this encounter Visit Diagnoses Not on filedocumented in this encounter Care Teams Scale Model Maker Relationship Specialty Start Date End Date Jim Wei MD [address] [place] [address] PCP - General 07/23/10 10/08/15 [facility] [address] [address] [place] [address] Well Drill Operator Helper Cable ToolGlobal Recruiter Medicine 03/26/11 documented as of this encounter
--- OUTSIDE RECORDS SUMMARY | 2024-05-27 02:34 | XMS_ITS | Encounter Summary ---
Author Organization [facility] Address [facility] [address] [address] Care Team Providers Care Outpatient Dietitian Name Role Phone Jim Wei MD Primary Care Provider [phone] Reason for Visit * Reason Comments Nephrolithiasis Encounter Details Date Type Department Care Team (Latest Contact Info) Description 07/12/2014 10:30 AM EST [place] [address] CLINIC, Sowmya Baez Jr., MD [facility] [address] Nephrolithiasis Discharge Disposition: Home Social History Tobacco [...] Sign Reading Time Taken Comments Blood Pressure 129/76 07/12/2014 10:47 AM EST Pulse 75 07/12/2014 10:47 AM EST Temperature - - Respiratory Rate - - Oxygen Saturation - - Inhaled Oxygen Concentration - - Weight 83 kg (183 lb) 07/12/2014 10:47 AM EST Height 162.6 cm (5' 4) 07/12/2014 10:47 AM EST Body Mass Index 31.41 07/12/2014 10:47 AM EST documented in this encounter Progress Notes * Sowmya Ingram Jr., MD - 07/12/2014 10:58 AM EST HPI: Ms. Ivey is a very pleasant 38 year old woman who [facility] evaluation regarding nephrolithiasis. She has also had history of right flank pain of unknown etiology( prior CT was obtained, confirming no evidence of right sided stones (Two non-obstructing left renal stones again noted)). Trace possible right pelviectasis was suggested, prompting IVP to assess for any sign of obstruction. IVP was normal, without sign of any abnormality on right. Her right sidedpain has fully resolved and has not recurred. She has known hypercalciuric/hyperoxaluric stone disease. Metabolic [...] reduction in HCTZ and addition of amiloride have normalized her serum electrolytes. In light of this, Dr Melvin also assessed her for secondary hyperaldosteronism, which he then considered not likely after labwork returned. She was started on topamax for migraine headaches. We discussed increased risk of stones, although repeat imaging showed no evidence of new stones at that time. In the interval since her last visit, she has been working towards reducing her topamax dose. She had a recent UTI, which has symptomatically resolved. Review of Systems Constitution: Negative for fever. Musculoskeletal: Positive for back pain. Gastrointestinal: Negative for abdominal pain. Genitourinary: Recent UTI, symptomatically resolved Past medical history: HTN, urolithiasis. Past surgical history: right ureteroscopy. Family history: no fam hx of stones Social History: no tobacco, social EtOH. UROLOGIC MEDICATIONS: Hydrochlorothiazide 12.5 mg daily Amiloride 5mg daily Physical Exam Constitutional: She is oriented to person, place, and time. She appears well- developed and well-nourished. No distress. HENT: Head: Normocephalic and atraumatic. Cardiovascular: Normal rate. Pulmonary/Chest: Effort normal. Abdominal: Soft. She exhibits no distension. There is no tenderness. There is no rebound and no guarding. Genitourinary: Mild bilateral CVA discomfort to percussion Neurological: She is alert and oriented to person, place, and time. Skin: She is not diaphoretic. Psychiatric: She has a normal mood and affect. Her behavior is normal. Vitals reviewed. Imaging studies: I independently reviewed the renal ultrasound from today. This reveals no evidenceof hydronephrosis or hydroureter. A 5mm left lower pole renal stone is noted, nonobstructing. Laboratory studies: 24 hour urine: 02/09/13; 09/15/12 01/29/12 (prior 02/13/10, 10/04/09 and 08/14 2009): volume: 2.71 3.4, 1.98 liters (normal / decreased at 2.35 2.24 and 1.30 liters). Calcium:292, 247, 121 (mildly elevated at 149 271 and 192 mg/day.) Oxalate: 39, 40, 54 ( 33 27 and 53 mg/day.) uric acid:0.641, 621, 465 (normal at 733 454 and 396 mg/day.) citrate: 615, 525, 785 (normal at 522 564 and 544 mg/day.) PH: 7.655, 7.24, 7.268 (6.656 7.133 and 6.463.) sodium: 206, 101 (normal at 78, 156 and 105 mmol/day) supersaturations: calcium oxalate: 5.19, 4.5, 6.71 (prior markedly improved 3.64, previously elevated at 5.58 and 17.01) calcium phosphate: 2.35, 1.03, 1.36 (1.39 prior elevated at 2.43 and 2.38) uric acid: 0.01, 0.03 (normal at 0.17, 0.48 and 0.24) Most recent 24h urine (12/21/13) scanned into eD -- notable for low urine volume (<2liters) and markedly decreased urinary citrate; calcium improved U/A: Trace heme, trace leukocyte esterase, no nitrite Impression/Plan: 1)Urolithiasis -- Single non-obstructing left renal stone. We reviewed mgmt options, she wishes to simply monitor for now. We reviewed follow up plan -- will obtain repeat imaging in 6 months, soonerprn. Plan reimaging at next visit in 6 months 2) Hypercalciuric borderline hypocitraturic urolithiasis. Hypercalciuria improved at last evaluation. We discussed need to maintain hydration to keep 2-3 liters daily urine output. 3)Recent UTI, completing antibiotics. Urine sent for follow up u/a and culture documented in this encounter Miscellaneous Notes * Addendum Note - Lorena Mukherjee LPN - 07/12/2014 1:19 PM ESTAddended by: LORENA MUKHERJEE on: 07/12/2014 01:19 PM Modules accepted: Orders documented in this encounter Plan of Treatment Not on file documented as of this encounter Procedures Procedure Name Priority Date/Time Associated Diagnosis Comments URINALYSIS WITH REFLEX CULTURE Routine 07/12/2014 1:19 PM EST Nephrolithiasis URINE CULTURE Routine 07/12/2014 1:19 PM EST Nephrolithiasis documented in this encounter Results * US retroperitoneal complete (01/10/2015 9:36 AM EDT) Anatomical Region Laterality Modality Abdomen Ultrasound 01/10/2015 9:36 AM EDT Narrative 01/10/2015 10:21 AM EDT Renal ?(Signed Final 01/10/2015 10:21 ? am) Patient Info ID #: ? [id number] ?: ??[birth year] (39 yrs) Name: ? BARBI Styles GILBERT ?Visit Date: 01/10/2015 09:31 am Performed By Performed By: ?George Singletary RDMS Attending: ? Bob MILNER, Meet Lundy Referred By: ? SOWMYA INGRAM MD Service(s) Provided ??URETRO - Retroperitoneal Complete - [id number] ? [id number] Indications ??? stone growth Comparison Outside CT scan: 01/05/15, Ultrasound: 07/12/14 Right Kidney Size (cm) ?L: ??10.7 Cortical Thickness: ?Normal Cortical Echogenicity: ?? Normal Hydronephrosis: ?No sonographic evidence Comment: ?Echogenic areas with twinkle artifiact noted within ? the right kidney. The largest area measuring 6.0 ? mm. Left Kidney Size (cm) ?L: ??11.3 Cortical Thickness: ?Normal Cortical Echogenicity: ?? Normal Hydronephrosis: ?Mild Comment: ?Stones noted within the left kidney; the largest ? measuring 1.6 cm and located within the renal ? pelvis. Urinary Bladder Pre-void (cm) ? L: ??2.7 ? AP: ??1.7 ? TV: ??4.5 Vol (ml): ?10.8 Comment: ?Partially distended, normal contour Impression Ultrasound - ??Retroperitoneal Complete - Summary: 16 mm. stone left renal pelvis, unchanged c/w CT 01/05/15. Mild hydronephrosis. Right kidney no definite stones (as on CT) but several echogenic foci with color twinkling present, probably artifact. Bladder OK. I ??viewed the images and agree with the above interpretation. ? Meet Rojas MD Electronically Signed Final Report ?? 01/10/2015 10:21 am Procedure Note Meet Rojas MD - 01/10/2015 Renal (Signed Final 01/10/2015 10:21 am) Patient Info ID #: [id number] : [birth year] (39 yrs) Name: BARBI IVEY Visit Date: 01/10/2015 09:31 am Performed By Performed By: George Singletary RDMS Attending: Meet Rojas MD Referred By: SOWMYA INGRAM MD Service(s) Provided URETRO - Retroperitoneal Complete - [id number] Indications ? stone growth Comparison Outside CT scan: 01/05/15, Ultrasound: 07/12/14 Right Kidney Size (cm) L: 10.7 Cortical Thickness: Normal Cortical Echogenicity: Normal Hydronephrosis: No sonographic evidence Comment: Echogenic areas with twinkle artifiact noted within the right kidney. The largest area measuring 6.0 mm. Left Kidney Size (cm) L: 11.3 Cortical Thickness: Normal Cortical Echogenicity: Normal Hydronephrosis: Mild Comment: Stones noted within the left kidney; the largest measuring 1.6 cm and located within the renal pelvis. Urinary Bladder Pre-void (cm) L: 2.7 AP: 1.7 TV: 4.5 Vol (ml): 10.8 Comment: Partially distended, normal contour Impression Ultrasound - Retroperitoneal Complete - Summary: 16 mm. stone left renal pelvis, unchanged c/w CT 01/05/15. Mild hydronephrosis. Right kidney no definite stones (as on CT) but several echogenic foci with color twinkling present, probably artifact. Bladder OK. I viewed the images and agree with the above interpretation. Meet Rojas MD Electronically Signed Final Report 01/10/2015 10:21 am Sowmya Ingram Jr., MD [facility] GEN ORDERAB LES * Urine culture Clean Catch Urine (07/12/2014 1:19 PM EST) Urine Culture ? Patient Name: BARBI IVEY ? Ordered By: SOWMYA INGRAM JR ? MR#: [id number] ?LOC: ??5B ? /Sex: ?? 5 (38 years), ? Female ? PROCEDURE: Urine Culture ?SOURCE: U CC ? COLLECTED: 07/12/2014 13:19 ? STARTED: 07/12/2014 15:09 ? FINAL REPORT ? Final Report ? Verified: 15:04 ? No growth (Less than 1,000 cfu/ml). ? ____ CERNER MILLENNIUM Urine specimen obtained by clean catch procedure (specimen) 07/12/2014 1:19 PM EST 07/12/2014 3:09 PM EST Narrative Resulting Agency Comment Spec In Lab Sowmya Ingram Jr., MD MICROBIOLOGY - GEN ERAL ORDERABLES [facility] * ([facility]NORMAL) Urinalysis with microscopic (07/12/2014 1:19 PM EST) Glucose, Urine Dipstick Negative Negative mg/dL CERNER MILLENNIUM Protein, Urine Dipstick Negative Negative mg/dL CERNER MILLENNIUM Bilirubin, Urine Dipstick Negative Negative mg/dL CERNER MILLENNIUM Comment: Clinical correlation required for positive Urine Bilirubin results as false positive may occur with some drugs and drug related products. If a false positive is suspected a serum total bilirubin should be considered if clinically indicated. Urobilinogen, Urine Dipstick Normal Normal mg/dL CERNER MILLENNIUM pH, Urn (dipstick) 8.0 5.0 - 8.0 CERNER MILLENNIUM Blood, Urine Dipstick Small(A) Negative mg/dL CERNER MILLENNIUM Ketone, Urine Dipstick Negative Negative mg/dL CERNER MILLENNIUM Nitrite, Urine Dipstick Negative Negative CERNER MILLENNIUM Leukocytes, Urine Dipstick Negative Negative mcL CERNER MILLENNIUM Appearance, Urine Dipstick Cloudy(A) Clear CERNER MILLENNIUM Specific [place] Urine Automated 1.011 1.002 - 1.030 CERNER MILLENNIUM Color, Urine Dipstick Yellow Yellow CERNER MILLENNIUM RBC, Urine Not Present 0 - 4 /HPF CERNER MILLENNIUM WBC, Urine Not Present 0 - 5 /HPF CERNER MILLENNIUM Bacteria, Urine Rare(A) None /HPF CERN ER MILLENNIUM Squamous Epithelial Cells, Urine 1 <=4 /HPF CERNER MILLENNIUM Amorphous Crystals, Urine Occasional(A ) None /HPF CERNER MILLENNIUM Urine specimen (specimen) 07/12/2014 1:19 PM EST 07/12/2014 2:58 PM EST Narrative Resulting Agency Comment Spec In Lab Sowmya Ingram Jr., MD URINE ORDERABLES CERNER MILLENNIUM documented in this encounter Visit Diagnoses Diagnosis Nephrolithiasis Calculus of kidney Nephrolithiasis Calculus of kidney documented in this encounter Care Teams Outpatient Dietitian Relationship Specialty Start Date End Date Jim Wei MD [address] [place] [address] PCP - General 07/23/10 10/08/15 [facility] [address] [address] [place] [address] [place] Worker HelperPopcorn Attendant Medicine 03/26/11 documented as of this encounter
--- OUTSIDE RECORDS SUMMARY | 2024-05-27 02:34 | XMS_ITS | Encounter Summary ---
Author Organization [facility] [place] [address] Care Team Providers Care Anodic Operator Name Role Phone Jim Wei MD Primary Care Provider [phone] Encounter Details Date Type Department Care Team (Late st Contact Info) Description 01/11/2015 1:32 PM EDT Anesthesia Event [place] [address] Jocelynn Aguilar MD [facility] [address] [place]HESI[place]Y [place] [address] Anoop Hernandez MD [facility] DR [place]ESTHESIOLOGY [place] [address] Anesthesia Record Procedure Summary Procedure Name Responsible Anesthesiologist Anesthesia Start Time Anesthesia Stop Time CYSTO, STENT PLACEMENT (WRVU 2.82) (Left: Bladder) Jocelynn Aguilar MD 01/11/15 1332 01/11/15 1434 Events Date Time Event Comment 01/11/2015 1329 1332 AN Verify 1332 Start 1357 An Start Data 1401 An Induction 1403 An Intubation 1403 Anesthesia Ready 1413 Procedure Start 1427 Extubation/LMA Out 1428 an stop data 1434 Stop Meds Name Total Midazolam 2 mg fentaNYL 25 mcg IV Lidocaine 40 mg Propofol 250 mg Ondansetron 4 mg Dexamethasone 8 mg ciprofloxacin (CIPRO) 400mg in dextrose 5% 200mL 400 mg lactated ringers infusion 1,000 mL 400 m L * Agents Name O2 Air N2O Isoflurane (et) * Blood No blood administrations on file. Lines, Drains, and Airways Type Details Placement Removal Incision 01/11/15; urethral meatus; cystoscopy; 04/28/22 (LDA cleanup utility RA#[id number]); 1715 (LDA cleanup utility RA#[id number]) 01/11/15 0000 by Patrizia Finney RN 04/28/22 1715 by Slim Simon (RETIRED) Peripheral IV Line - Single Lumen 01/11/15; 1346; metacarpal vein right (top of hand); [id number] catheter system; 20 gauge, 1 in length; Alycia ESCOBEDO; distraction, intradermal injection; 01/11/15; 1542 01/11/15 1346 by Angelina Mesa RN 01/11/15 1542 by Kylee Westbrook RN Supraglottic Mask Ventilation: Ea martina (1); LMA Type: iGel; LMA Size: 4; Inserted by: David; Removal Date: 01/11/15; Removal Time: 1427 01/11/15 1403 by Anoop Hernandez MD 01/11/15 1427 by Anoop Hernandez MD documented in this encounter Social History Tobacco [...] OR Notes * Anesthesia Postprocedure Evaluation - Anoop eHrnandez MD - 01/11/2015 3:41 PM EDT Patient: Barbi Ivey Procedure(s) Performed: Procedure(s): CYSTO, STENT PLACEMENT Actual Anesthetic: general Patient location: PACU Post-op pain: Adequate analgesia Post-op nausea: no nausea or vomiting Last Vitals: Filed Vitals: 01/11/15 1502 BP: 141/93 Pulse: 67 Temp: Resp: 16 Post-op cardiovascular and respiratory status: is stable Level of consciousness: awake, alert and oriented Complications: no apparent complications and tolerated the procedure well Fluid Status: normal * Anesthesia Preprocedure Evaluation - Anoop Hernandez MD - 01/10/2015 3:48 PM EDT Pre-Anesthesia Evaluation for: Barbi Ivey a 39 y.o. female. Procedure(s): CYSTO, STENT PLACEMENT Patient Active Problem List Diagnosis ??? Hypertension ??? History of kidney stones ??? Right shoulder pain Past Medical History Diagnosis Date ??? Hypertension ??? Kidney stone Past Surgical History Procedure Laterality Date ??? section X2 ??? Orthopedic surgery Foot ??? Kidney stone surgery Extraction via cystoscopy ??? Lithotripsy History Substance Use Topics ??? Smoking status: [...] file to calculate BMI. Airway Assessment: Mallampati: I TM distance: >3 FB Neck ROM: full Cardiovascular Assessment: Pulmonary Assessment: [facility]: Anesthesia Plan: ASA 2 general, with a(n) intravenous induction 39 year old female with large left renal stone for cysto/stent. PMH includes nephrolithiasis, migraines, and HTN. No problems with prior anesthesia. Denies cardiopulmonary disease. Denies GERD. Appropriately NPO. Discussed plan for GA/LMA Region - Other Informed Consent: Anesthetic plan and risks discussed with patient. Plan discussed with resident. Misc. Assessment: documented in this encounter Plan of Treatment Not on file documented as of this encounter Visit Diagnoses Not on filedocumented in this encounter Administered Medications Inactive Administered Medications - up to 3 most recent administrations Medication Order MAR Action Action Date Dose Rate Site ciprofloxacin (CIPRO) 400mg in dextrose 5% 200mL 400 mg, Intravenous, ONCE, 1 dose, On Nithya 01/11/15 at 1400, Administer over 60 Minutes, Day of Surgery (Day of Procedure), Indication for (Active or Suspected): Prophylaxis, Restricted Antibiotic: Please indicate the most appropriate choice: Pre-approved Indication (State the indication in Comments field) Given 01/11/2015 2:08 PM EDT 400 mg dexamethasone (DECADRON) injection PRN, Starting on Nithya 01/11/15 at 1408, Until Nithya 01/11/15 at 1435, Anesthesia Intra-op, Routine Given 01/11/2015 2:08 PM EDT 8 mg fentaNYL 50 mcg/mL multi-dose injection PRN, Starting on Nithya 01/11/15 at 1407, Until Nithya 01/11/15 at 1435, Pain, Anesthesia Intra-op, Routine Given 01/11/2015 2:07 PM EDT 25 mcg lidocaine (PF) (XYLOCAINE) 100 mg/5 mL (2 %) injection PRN, Starting on Nithya 01/11/15 at 1401, Until Nithya 01/11/15 at 1435, Anesthesia Intra-op, Routine Given 01/11/2015 2:01 PM EDT 40 mg midazolam (PF) (VERSED) 1 mg/mL multi-dose injection PRN, Starting on Nithya 01/11/15 at 1333, Until Nithya 01/11/15 at 1435, Sleep, Anesthesia Intra-op, Routine Given 01/11/2015 1:33 PM EDT 2 mg ondansetron (ZOFRAN) injection PRN, Starting on Nithya 01/11/15 at 1420, Until Nithya 01/11/15 at 1435, Nausea, Anesthesia Intra-op, Routine Given 01/11/2015 2:20 PM EDT 4 mg propofol (DIPRIVAN) 10 mg/mL bolus injection (Anesthesia) PRN, Starting on Nithya 01/11/15 at 1401, Until Nithya 01/11/15 at 1435, Anesthesia Intra-op Given 01/11/2015 2:01 PM EDT 250 mg documented in this encounter Care Teams Anodic Operator Relationship Specialty Start Date End Date Jim Wei MD [address] [place] [address] PCP - General 07/23/10 10/08/15 [facility] [address] [address] [place] [address] Tour ActorPlanner/Scheduler Medicine 03/26/11 documented as of this encounter
--- OUTSIDE RECORDS SUMMARY | 2024-05-27 02:34 | XMS_ITS | Encounter Summary ---
Author Organization [facility] Address [facility] [address] [place] [address] Care Team Providers Care Environmental Journalist Name Role Phone Rosanne Lopez MD Primary Care Provider [phone] Reason for Visit * Reason Comments Nephrolithiasis Encounter Details Date Type Department Care Team (Late st Contact Info) Description 10/09/2015 2:30 PM EST [place] [address] Matthew Melvin MD [facility] [address] Nephrolithiasis Social History Tobacco Use Types Packs/Day [...] as of this encounter Progress Notes * Matthew Melvin MD - 10/09/2015 2:13 PM EST Nephrology/Hypertension Clinic Follow-up Note [id number] ID: 39 y.o.year-old female for follow up of nephrolithiasis. Past Medical History: Nephrolithiasis ?? Hypertension Migraine ? Outpatient Encounter Prescriptions as of 10/09/2015 Medication Sig Dispense Refill ??? cetirizine (ZYRTEC) 10 mg Tablet Take 10 mg by mouth daily. ??? oxyCODONE (ROXICODONE) 5 mg Tablet Take 1-2 tablets by mouth every 4 hours as needed for Pain. 30 tablet 0 ??? [DISCONTINUED] docusate sodium (COLACE) 100 mg Capsule Take 1 capsule by mouth 2 times daily asneeded for Constipation. ??? [DISCONTINUED] tamsulosin (FLOMAX) 0.4 mg Capsule, Sust. Release 24 hr Take 1 capsule by mouth daily. 30 tablet 0 ??? [DISCONTINUED] oxybutynin (DITROPAN) 5 mg Tablet Take 1 tablet by mouth 3 times daily. 30 tablet 0 ??? potassium Citrate (UROCIT) 10 mEq Tablet Sustained Release Take 1 tablet by mouth 3 times daily. 270 tablet 10 ??? [DISCONTINUED] nitrofurantoin, macrocrystal-monohydrate, (MACROBID) 100 mg Capsule Take 100 mg by mouth 2 times daily. ??? [DISCONTINUED] metoprolol succinate (TOPROL-XL) 25 mg Tablet Sustained Release 24 hr Take 25 mgby mouth daily. ??? SUMAtriptan (IMITREX) 100 mg tablet Take by mouth as needed. ??? amiloride (MIDAMOR) 5 mg tablet Take 1 tablet by mouth daily. 90 tablet 3 ??? hydrochlorothiazide (HYDRODIURIL) 12.5 mg tablet 12.5 MG = 1 Tablet(s), PO, Twice daily No facility-administered encounter medications on file as of 10/09/2015. Allergies Allergen Reactions ??? Adhesive Dermatitis Rash and blisters. Fine with paper tape ??? Lisinopril Other (See Comments) hypotension ??? Penicillins Hives HPI: She was last seen by Nephrology in 01/12. She underwent left PCNL in 02/[address] Hernandez in 07/15. She collected a 24 hour urine through [facility] on 07/13/15. She has not had flank pain or hematuria. She has been taking hydrochlorothiazide 12.5 mg only once daily rather than twice daily. SH: She has new cross country skis but has not been able to use them. ROS: She was diagnosed with Lyme Disease. She was on doxycycline but it was stopped because of chest pain of uncertain cause. She is to have an echocardiogram. She held potassium citrate while taking doxycycline but is now back on the potassium citrate; she admits to frequently forgetting mid day dose. The remainder of a 10-point review of systems was negative. PE: Vitals 10/09/2015 SYSTOLIC 118 DIASTOLIC 77 BP Location PULSE 98 TEMPERATURE RESPIRATIONS 16 Height (Gambian) 5' 4 Height (Metric) 162.6 cm Weight (Gambian) 190 lbs Weight (Metric) 86.183 kg BODY MASS INDEX 32.6 kg/m2 General: WDWN young woman in no distress Eye: EOMs intact ENT: Moist mucous membranes Neck: JVP normal CV: RRR. No murmur or gallop Resp: Lungs clear Back: No CVA tenderness Abd: Soft, non-tender Lymph: No cervical or submandibular adenopathy Ext: No pretibial edema Skin: No rash Neuro: Gait normal Labs: 24 hour urine collected 07/13/15 through [facility]: volume 3 liters, calcium 321 mg, oxalate 33 mg,citrate 550 mg, uric acid 489; sodium 194 mmol; pH 6.95. SS CaOx 5.02, SS CaP 2.00, SS uric acid 0.04. PCR 0.7. I viewed independently the renal ultasound that showed only a possible stone in left kidney. Assessment: Nephrolithiasis, calcium phosphate/magnesium ammonium phosphate/calcium oxalate, with risk factors hypercalciuria, hyperoxaluria, hypocitraturia, and high urine sodium. Hypercalciuria is worse, as isurinary sodium. Recommendations: 1. She will see Aleja Kaye RD, [place], today concerning sodium intake. 2. Return to hydrochlorothiazide 12.5 mg twice daily. 3. Change potassium citrate to 20 mEq twice daily. 4. Check basic metabolic profile in 2-3 weeks. 5. Repeat 24 hour urine through [facility] in 6-8 weeks. 6. [facility]. CC: ROSANNE LOPEZ MD @PCPADD@ documented in this encounter Plan of Treatment Not on file documented as of this encounter Procedures Procedure Name Priority Date/Time Associated Diagnosis Comments LAB SCAN 04/07/2016 12:00 AM EDT documented in this encounter Results * SCAN DOC: LAB (04/07/2016 12:00 AM EDT) Scanning Provider MEDIA MGR SCAN EXT O RDR/RSLT documented in this encounter Visit Diagnoses Diagnosis Nephrolithiasis Calculus of kidney documented in this encounter Care Teams Environmental Journalist Relationship Specialty Start Date End Date Rosanne Lopez MD PCP - General Family Medicine 10/09/15 04/08/16 [facility] [address] [address] [place] [address] Print Line TailerCustoms Compliance Analyst Medicine 03/26/11 documented as of this encounter
--- OUTSIDE RECORDS SUMMARY | 2024-05-27 02:34 | XMS_ITS | Encounter Summary ---
Author Organization [facility] Address [facility] [address] [place] [address] Care Team Providers Care Lemon Grower Name Role Phone Jim Wei MD Primary Care Provider [phone] Reason for Visit * Reason Comments Nephrolithiasis Encounter Details Date Type Department Care Team (Late st Contact Info) Description 04/24/2015 10:00 AM EDT [place] [address] Sowmya Ingram Jr., MD [facility] [place] [address] Recurrent nephrolithiasis Discharge Disposition: Home Social History [...] Sign Reading Time Taken Comments Blood Pressure 120/79 04/24/2015 10:28 AM EDT Pulse 81 04/24/2015 10:28 AM EDT Temperature 36.6 ??C (97.8 ??F) 04/24/2015 10:28 AM E DT Respiratory Rate 18 04/24/2015 10:28 AM EDT Oxygen Saturation 98% 04/24/2015 10:28 AM EDT Inhaled Oxygen Concentration - - Weight 81.6 kg (180 lb) 04/24/2015 10:28 AM EDT Height 162.6 cm (5' 4) 04/24/2015 10:28 AM EDT Body Mass Index 30.9 04/24/2015 10:28 AM EDT documented in this encounter Progress Notes * Sowmya Ingram Jr., MD - 04/24/2015 10:57 AM EDT HPI: Barbi Ivey returns for follow up regarding recurrent urolithiasis. This pleasant 39 year old woman underwent left pcnl on 02/01/15. Intraoperative findings were notablefor lower pole left renal staghorn stone. She [...] appears well- developed and well-nourished. No distress. Cardiovascular: Normal rate. Pulmonary/Chest: Effort normal. Abdominal: Soft. She exhibits no distension. There is no tenderness. There is no rebound and no guarding. Genitourinary: No CVA tenderness to percussion bilaterally Neurological: She is alert and oriented to person, place, and time. Skin: She is not diaphoretic. Psychiatric: She has a normal mood and affect. Her behavior is normal. Vitals reviewed. Stone analysis: 60% Calcium phosphate (apatite); 30% Magnesium ammonium phosphate (struvite); 10% Calcium oxalate dihydrate Imaging studies: I independently reviewed the renal ultrasound from 04/09/15. This reveals no evidence of hydronephrosis, hydroureter, or new/residual stones. Impression/Plan: Stone free s/p left PCNL. We will plan reimaging in 6 months with repeat renal u/s to assess for new stones She is scheudled to collect 2 24h urines to follow metabolic stone proclivity Continue HCTZ (12.5mg/d) as per Dr Melvin Continue urocit k 10meq bid as per Dr Melvin Follow up in multi-disciplinary metabolic stone clinic In 6 months, sooner prn documented in this encounter Plan of Treatment [...] 01:37 pm) Patient Info ID #: ? [id number] ?: ??[birth year] (39 yrs) Name: ? BARBI IVEY ?Visit Date: 10/09/2015 01:18 pm Performed By Performed By: ? Saranya Love RDMS Attending: ?Johana MILNER, Arlen Ruth Associate: ?Leslie MILNER, Kian Cooper Referred By: ?SOWMYA INGRAM MD Service(s) Provided ??URETRO - Retroperitoneal Complete - [id number] ? [id number] Indications ??? new stone grwth Comparison Renal/bladder [...] 10/09/2015 01:37 pm) Patient Info ID #: [id number] : [id number] (39 yrs) Name: BARBI IVEY Visit Date: 10/09/2015 01:18 pm Performed By Performed By: Saranya Love RDMS Attending: Arlen Vaughn MD Associate: Kian Nelson MD Referred By: SOWMYA INGRAM MD Service(s) Provided URETRO - Retroperitoneal Complete - [id number] Indications ? new stone grwth Comparison Renal/bladder [...] Signed Final Report 10/09/2015 01:37 pm Sowmya Ingram Jr., MD IMG US GEN ORDERAB LES documented in this encounter Visit Diagnoses Diagnosis Recurrent nephrolithiasis Calculus of kidney Recurrent nephrolithiasis Calculus of kidney documented in this encounter Care Teams Lemon Grower Relationship Specialty Start Date End Date Jim Wei MD [address] [place] [address] PCP - General 07/23/10 10/08/15 [facility] [address] [address] [place] [address] Glue Size Machine OperatorGeneral Lot Attendant Medicine 03/26/11 documented as of this encounter
--- OUTSIDE RECORDS SUMMARY | 2024-05-27 02:34 | XMS_ITS | Encounter Summary ---
Author Organization [facility] Address [facility] [address] [place] [address] Care Team Providers Care Screening Representative Name Role Phone Belem Mike MD Primary Care Provider [phone] Encounter Details Date Type Department Care Team (Latest Contact Info) Description 02/01/2015 6:08 AM EDT - 02/02/2015 5:20 PM EDT Hospital Encounter [place] [id number] Emeka Hernandez Jr., MD [facility] [place] [address] Discharge Disposition: Home Social History Tobacco Use [...] Sign Reading Time Taken Comments Blood Pressure 124/79 02/02/2015 12:40 PM EDT Pulse 91 02/02/2015 9:05 AM EDT Temperature 36.7 ??C (98.1 ??F) 02/02/2015 12:40 PM E DT Respiratory Rate 18 02/02/2015 12:40 PM EDT Oxygen Saturation 95% 02/02/2015 12:40 PM EDT Inhaled Oxygen Concentration - - Weight 81.6 kg (180 lb) 02/01/2015 6:45 AM EDT Height 162.6 cm (5' 4.02) 02/01/2015 6:45 AM ED T Body Mass Index 30.88 02/01/2015 6:45 AM EDT documented in this encounter Discharge Summaries * Sweetie English PA - 02/02/2015 1:53 PM EDT Discharge Summary Patient Name: Barbi Ivey Patient Age: 39 y.o. Language: Guamanian Race: White Ethnicity: Not nor Admit date: [...] this became worse so she went to [facility] ED where a CT scan showed a >2 cm branched stone (partial staghorn). Shewas discharged with ibuprofen which has partially helped with her pain. Her pain is very movement associated, but currently she is comfortable. Hospital Course: Patient was admitted electively to [facility] via the same day surgery program and [...] longer draining. The number for questions is [phone] before 5 PM weekdays and [phone] after 5 PM and weekends. Activity: Gradually [...] (acetaminophen) or Ibuprofen (Advil, Motrin) as directed [id number]. Take any prescriptions as directed. Follow up Appointments: Follow-up appointment will be scheduled with Dr. Hernandez in 2-3 weeks for a hospital check and stent removal. Appointment will be mailed to you. Please call [phone] (clinic number for appointments) to confirm date [...] Phone 02/22/2015 11:30 AM UROLOGY, PROCEDURE Urology [phone] 02/22/2015 11:40 AM Emeka Hernandez Jr., MD [facility] [phone] 06/13/2015 1:00 PM Matthew Melvin MD Nephrology [phone] 06/13/2015 1:30 PM Emeka Hernandez Jr., MD Urology [phone] Follow-Up: Future Appointments Date Time Provider Department Center 02/22/2015 11:30 AM UROLOGY, PROCEDURE [facility] 02/22/2015 11:40 AM Emeka Hernandez Jr., MD [facility] None 06/13/2015 1:00 PM Matthew Melvin MD [facility] 06/13/2015 1:30 PM Emeka Hernandez Jr., MD [facility] Primary Care Provider: BELEM MIKE MD [phone] Follow-up Recommendations for Providers: Please see discharge [...] was managed by the Urology Team at [facility]. If you have any questions or concerns, please feel free to contact us. Provider Contact Information: Urology Clinic: [facility] (after business hours): documented in this encounter [...] longer draining. The number for questions is [phone] before 5 PM weekdays and [phone] after 5 PM and weekends. Activity: Gradually [...] (acetaminophen) or Ibuprofen (Advil, Motrin) as directed [id number]. Take any prescriptions as directed. Follow up Appointments: Follow-up appointment will be scheduled with Dr. Hernandez in 2-3 weeks for a hospital check and stent removal. Appointment will be mailed to you. Please call [phone] (clinic number for appointments) to confirm date [...] RN - 02/02/2015 9:43 AM EDT Urology FRAME OPENER 0936 removed neph tube min bleeding at site uro-bag applied by FRAME OPENER Pt now OOB in chair -- escalante [...] Only c/o soreness to L flank area. MODEL AND MOLD MAKER PLASTER initiated w/teaching provided. L flank drsg remains [...] this became worse so she went to [facility] ED where a CT scan showed a [...] pain. Genitourinary: S. Saprophiticus UTI diagnosed at [facility] Past medical history: HTN, urolithiasis. Past surgical [...] studies: I independently reviewed the CT from [facility]. This reveals a left renal pelvis branched [...] reduce her hypercalciuria. She will also have mounting machine operator consultation today as well. documented in this encounter Miscellaneous Notes * Plan of Care - Evelyn Waters RN - 02/02/2015 4:20 PM EDT Problem: General Plan of Care Goal: Plan of Care Review Outcome: Outcome (s) achieved Date Met: 02/02/15 02/02/15 5113 Coping/Psychosocial Response Interventions Plan of Care Reviewed [...] health or care? answered by nurses and CIVIL ENGINEERING TEACHER Goal: Fall Prevention-Safe Patient Handling Outcome: Outcome [...] Operative Note Patient Name: Barbi Ivey : [id number] MR#: [id number] Case Date: 02/01/2015 Surgeon: Surgeon(s) and Role: [...] FR variable length stent, left 24 Fr [place] Pollack catheter Disposition: awakened from anesthesia, extubated [...] a super-stiff wire. We then used an 8/10-Armenian dilator to dilate a tract down into the kidney over the super-stiff wire. We removed the inner 8-Armenian sheath and placed another glidewire down through [...] mapping pyelogram was performed, and then a 7-Armenian variable-length ureteral stent was placed down into the bladder over a glidewire with a curl in the collecting system. She had a final retrograde showing some extravasation through the lower pole. We then placed a 24-Armenian Beverly catheter on a Pollack through it before [...] NOTE: OUTCOME SUMMARY: Pt.'s pain controlled with MODEL AND MOLD MAKER PLASTER but also 5mg's oxycodone,pain averaged 6/10-but 4/10 when oxycodone used in addition to MODEL AND MOLD MAKER PLASTER. Pt. Had zofran overnight for ongoing nausea. [...] Outcome: Ongoing (Interventions Implemented as Appropriate) 02/01/15 123 Coping/Psychosocial Response Interventions Plan of Care Reviewed with patient Plan of Care Review Plan of Care Outcome Status ongoing (interventions implemented as appropriate) Progress progress toward functional goals as expected OUTCOME EVALUATION NOTE: OUTCOME SUMMARY: Report received from Frida ESCOBEDO in PACU. Patient [facility] via bed. Is drowsybut appropriate when awakened and able to answer questions. Dressing is CDI. Neph tube and escalante patent and draining pink/red tinged urine. Able to use MODEL AND MOLD MAKER PLASTER appropriately. PLAN MOVING FORWARD: POC reviewed, oriented to call choe system. Using MODEL AND MOLD MAKER PLASTER. Taking ice chips. INDIVIDUALIZED FALL PREVENTION: Assistance: [...] Outcome: Ongoing (Interventions Implemented as Appropriate) 02/01/15 123 Discharge Needs Assessment Concerns to be Addressed [...] Operative Note Patient Name: Barbi Ivey : [id number] MR#: [id number] Case Date: 02/01/2015 Surgeon: Surgeon(s) and Role: [...] FR variable length stent, left 24 Fr Beverly Pollack catheter Disposition: awakened from anesthesia, extubated [...] 02/01/2015 6:31 AM EDT TYPE AND SCREEN ([facility]/GREG) STAT 02/01/2015 6:31 AM EDT documented in [...] MD HEMATOLOGY ORDERAB LES Performing Organization Address City/[facility]/ZIP Co de Phone Number CERNER TOMMIEENNIUM * (ABNORMAL) Hemogram (02/02/2015 3:30 AM EDT) [...] Emeka Hernandez Jr., MD HEMATOLOGY ORDERAB LES CERINES REILLYENNIUM * (ABNORMAL) Basic Metabolic Panel (non-fasting) (02/02/2015 3:30 AM EDT) Glucose 123 65 - 199 mg/dL CERNER MILLENNIUM Comment:Diabetes: >=200 mg/d L plus symptoms Blood Urea Nitrogen 6(L) 8 - 18 mg/dL CERNER MILLENNIUM Creatinine 0.63(L) 0.70 - 1.20 mg/dL CERNER MILLENNIUM Comment: Please note that the pediatric reference intervals supplied above were not validated at [facility]. Results from pediatric patients should be interpreted [...] the following links into your internet browser. [email or web address] Blood specimen (specimen) 02/02/2015 3:30 AM EDT 02/02/2015 4:06 AM EDT Narrative Resulting Agency Comment Spec In Lab Emeka Hernandez Jr., MD CHEMISTRY ORDERABL ES CERINES FREDERICK * SCAN DOC: IMPLANTABLE DEVICES (02/02/2015 12:00 [...] Emeka Hernandez Jr., MD HEMATOLOGY ORDERAB LES CERINES REILLYENNIUM * Hemogram (02/01/2015 10:38 AM EDT) White Blood Cell 6.2 4.0 - 10.0 [...] Emeka Hernandez Jr., MD HEMATOLOGY ORDERAB LES [facility] * (ABNORMAL) Basic Metabolic Panel (non-fasting) (02/01/2015 10:38 AM EDT) [facility] Glucose 117 65 - 199 mg/dL CERNER MILLENNIUM Comment:Diabetes: >=200 mg/d L plus symptoms Blood Urea Nitrogen 12 8 - 18 mg/dL CERNER MILLENNIUM Creatinine 0.68(L) 0.70 - 1.20 mg/dL CERNER MILLENNIUM Comment: Please note that the pediatric reference intervals supplied above were not validated at [facility]. Results from pediatric patients should be interpreted in conjunction to the patient's age, height and muscle mass. Sodium 143 135 - 145 mmol/L CERNER MILLENNIUM Potassium [...] the following links into your internet browser. [email or web address] Blood specimen (specimen) 02/01/2015 10:38 AM EDT [...] ??Comment calcium carbonate present Test Performed by: [place] [address] Coupon Manifest Clerk: Foreign Guerrero II, M.D., Ph.D. ASTER FREDERICK Calculus specimen (specimen) Other / Unknown 02/01/2015 9:50 AM EDT 02/01/2015 11:29 AM EDT Narrative Resulting Agency Comment Spec In Lab Emeka Hernandez Jr., MD LAB SEND OUT ORDER JU ASTER FREDERICK * Antibody screen (02/01/2015 6:31 AM EDT) Ab Screen Interp Negative ASTER FREDERICK Expires at 2359 on: [id number] ASTER FREDERICK Blood specimen (specimen) 02/01/2015 6:31 AM EDT 02/01/2015 6:38 AM EDT Narrative Resulting Agency Comment Spec In Lab Emeka Hernandez Jr., MD BLOOD BANK LAB ORD ERABLES Performing Organization Address City/[facility] Co de Phone Number ASTER FREDERICK * ABO/Rh Typing (02/01/2015 6:31 AM EDT) ABORH Type O Neg ASTER FREDERICK Blood specimen (specimen) 02/01/2015 6:31 AM EDT 02/01/2015 6:38 AM EDT Narrative Resulting Agency Comment Spec In Lab Emeka Hernandez Jr., MD BLOOD BANK LAB ORD ERABLES Performing Organization Address City/[facility] Co de Phone Number ASTER FREDERICK documented [...] Given 02/01/2015 3:03 PM EDT 5 mg docusate sodium (COLACE) capsule 100 mg 100 mg, Oral, 2 TIMES DAILY, First dose on Nithya 02/01/15 at 1215, Until Discontinued, Recovery (Recovery-Hospital Unit), Routine Given 02/02/2015 9:00 AM EDT 1 00 mg Given 02/01/2015 9:58 PM EDT 100 mg Given 02/01/2015 1:54 PM EDT 100 mg hydrochlorothiazide (HYDRODIURIL) tablet 12.5 mg 12.5 mg, Oral, 2 TIMES DAILY, First dose on Nithya 02/01/15 at 1300, Until Discontinued, Recovery (Recovery-Hospital Unit), Routine Given 02/02/2015 9:08 AM ED T 12.5 mg Given 02/01/2015 3:01 PM EDT 12.5 mg HYDROmorphone (DILAUDID) 1 mg/mL MODEL AND MOLD MAKER PLASTER 30 mL Intravenous, MODEL AND MOLD MAKER PLASTER ONLY, Starting on Nithya 02/01/15 at 1100, [...] Given 02/01/2015 10:36 AM EDT 0.2 mg lactated ringers infusion 1,000 mL 1,000 mL, at 100 mL/hr, Intravenous, CONTINUOUS, Starting on Nithya 02/01/15 at 0700, Until Nithya 02/01/15 at 1142, Day of Surgery (Day of Procedure) New Bag 02/01/2015 6:53 AM EDT 1,000 mLs 100 mL/hr ondansetron (ZOFRAN) injection 4 mg 4 mg, [...] Discontinued, Routine 1503 (Given - Provider: Virginia Shaffer, FANNY) 0908 (Given - Provider: Evelyn Waters RN) clindamycin (CLEOCIN) 600mg in dextrose 5% 50mL (CANCELED) 600 mg, Intravenous, EVERY 8 HOURS, First dose on Nithya 6/4/15 at 0700, Until Discontinued, Administer over 20 Minutes, Day of Surgery (Day of Procedure), Indication for (Active or Suspected): Prophylaxis 0700 (Due)0749 (Given - Provider: Yoav Arnett DO) docusate sodium (COLACE) capsule 100 mg 100 mg, Oral, 2 TIMES DAILY, First dose on Nithya /12/13 at 1215, Until Discontinued, Recovery (Recovery-Hospital Unit), Routine 1354 (Given - Provider: Virginia Shaffer RN)2158 (Given - Provider: Lona Nguyen RN) 0900 (Given - Provider: Evelyn Waters RN) gentamicin (GARAMYCIN) 82 mg in sodium chloride 0.9% 102.05 mL (COMPLETED) 82 mg (1 mg/kg/dose ? 82 kg Order-specific weight), Intravenous, ONCE, 1 dose, On Nithya /12/13 at 0700, Administer over 60 Minutes, This [...] 2 TIMES DAILY, First dose on Nithya /15 at 1215, Until Discontinued, 20 mEq tablet may be dissolved in water for administration, Recovery (Recovery-Hospital Unit), Routine 1355 (Given - Provider: Virginia Shaffer, FANNY)2100 (Not Given - Provider: Lona Nguyen RN - Reason: Medication Discontinued) potassium Citrate (UROCIT) tablet SR TbSR 10 mEq (CANCELED) 10 mEq, Oral, 3 TIMES DAILY, First dose on Nithya 02/01/15 at 1500, Until Discontinued, Recovery (Recovery-Hospital Unit), Routine 1500 (Not Given - Provider: Virginia Shaffer RN - Reason: Medication not available)2242 (Given - Provider: Lona Nguyen RN) 0909 (Given - Provider: Evelyn Waters, RN)1448 (Given - Provider: Evelyn Waters, RN) sodium chloride 0.9 % flush 5 mL (CANCELED) 5 mL, Intravenous, 2 TIMES DAILY, First dose on Nithya 02/01/15 at 1215, Until Discontinued, Recovery (Recovery-Hospital Unit), Routine 1215 (Not Given - Provider: Virginia Shaffer RN - Reason: See comment - Comment: IV infusing)2158 (Given - Provider: Lona Nguyen RN) 0910 (Given - Provider: Evelyn Waters, FANNY) sodium chloride 0.9% 500 mL IV bolus (COMPLETED) Intravenous, ONCE, 1 dose, On Thu02/02/15 at 1230 1221 (Given - Provid er: Luis Gibbs RN) tamsulosin (FLOMAX) capsule 0.4 mg (CANCELED) 0.4 mg, Oral, NIGHTLY, First dose on Nithya 02/01/15 at 2100, Until Discontinued, Recovery (Recovery-Hospital Unit), Routine 2157 (Given - Provider: Lona Nguyen RN) Continuous Medication Order 01/31/2015 02/01/2015 02/02/2015 HYDROmorphone (DILAUDID) 1 mg/mL MODEL AND MOLD MAKER PLASTER 30 mL (CANCELED) Intravenous, MODEL AND MOLD MAKER PLASTER ONLY, Starting on Nithya 02/01/15 at 1100, Until Thu02/02/15 at 1922, Recovery (Recovery-Hospital Unit) 1100 (New Syringe/Cartridge - Provider: Frida Pinon RN) lactated ringers infusion 1,000 mL (CANCELED) 1,000 [...] 0204 (New Bag - Provider: Lona Nguyen, RN)1020 (New Bag - Provider: Evelyn Waters, RN) [...] PACU Recovery 1036 (Given - Provider: Frida Pinon RN)1054 (Given - Provider: Frida Pinon RN) iohexol (OMNIPAQUE) 300 mg/mL solution (CANCELED) ONCE PRN, Starting on Nithya 02/01/15 at 0910, Until Nithya 02/01/15 at 1142, Intra-Operative (Intra-Procedure), Routine 0910 (Given - Provider: Emeka Hernandez Jr., MD - Comment: Mixed 1:1 with saline.) lidocaine-EPINEPHrine 1 %-1:200,000 injection (CANCELED) ONCE PRN, Starting on Nithya 02/01/15 at 1005, Until Nithya 6 at 1142, Intra-Operative (Intra-Procedure), Routine 1005 (Given - Provider: Emeka Hernandez Jr., MD - Comment: Bupivacaine 0.5 % mixed 1:1 with Lidocaine 1% with epinephrine 1:200,000. Total of 20 cc of local aministered.) ondansetron (ZOFRAN) injection 4 mg (CANCELED)(Linked Group 1) 4 mg, Intravenous, EVERY 8 HOURS PRN, Starting on Nithya 6 at 1042, Until 02/02/15 at 1922, Nausea, May repeat times one in 30 minutes if ineffective. If multiple antiemetics are ordered, use ondansetron first., Recovery (Recovery-Hospital Unit) 1716 (Given - Provider: Virginia Shaffer RN) 0156 (Given - Provider: Lona Nguyen RN)0906 (See Alternative - Provider: Evelyn Waters, FANNY) ondansetron (ZOFRAN) tablet 4 mg (CANCELED)(Linked Group 1) 4 mg, Oral, EVERY 8 HOURS PRN, Starting on Nithya 6 at 1042, Until 02/02/15 at 1922, Nausea, Vomiting, If multiple antiemetics are ordered, use ondansetron first. PO Preferred. If patient unable to take PO, may give IV if ordered. May repeat times one in 45 minutes if ineffective., Recovery (Recovery-Hospital Unit), Routine 1716 (See Alternative - Provider: Virginia Shaffer RN) 0156 (See Alternative - Provider: Lona Nguyen RN)0906 (Given - Provider: Evelyn Waters, FANNY) oxyCODONE (ROXICODONE) immediate release tablet 5 mg 5 mg, Oral, EVERY 4 HOURS PRN, Starting on Nithya 6 at 1042, Until 02/02/15 at 1922, Pain, Recovery (Recovery-Hospital Unit), Routine 1849 (Given - Provider: Virginia Shaffer, FANNY) 0304 (Given - Provider: Lona Nguyen RN)0905 (Given - Provider: Evelyn Waters RN)1329 (Given - Provider: Maria D Jackson RN) SUMAtriptan (IMITREX) tablet 50 mg (CANCELED) 50 mg, Oral, EVERY 8 HOURS PRN, Starting on Nithya 02/01/15 at 1155, Until 02/02/15 at 1922, Migraine, Recovery (Recovery-Hospital Unit), STAT [...] Unit) documented in this encounter Care Teams Screening Representative Relationship Specialty Start Date End Date Belem Mike MD [address] [place] [address] PCP - General 07/23/10 10/08/15 [facility] [address] [address] [place] [address] Sales Promotion CoordinatorResidential Building Inspector Medicine 03/26/11 documented as of this encounter
--- OUTSIDE RECORDS SUMMARY | 2024-05-27 02:34 | XMS_ITS | Encounter Summary ---
Author Organization [facility] Address [facility] [place] [address] Care Team Providers Care News Commentator Name Role Phone Belem Mike MD Primary Care Provider [phone] Encounter Details Date Type Department Care Team (Late st Contact Info) Description 07/12/2014 11:00 AM EST [place] [address] Pramod Gregory MD [facility] [place] [address] Nephrolithiasis Discharge Disposition: Home Social History Tobacco [...] Time Taken Comments Blood Pressure 129/76 07/12/2014 11:42 AM EST Pulse - - Temperature - - Respiratory Rate - - Oxygen Saturation - - Inhaled Oxygen Concentration - - Weight - - Height - - Body Mass Index - - documented in this encounter Progress Notes * Pramod Gregory MD - 07/12/2014 11:44 AM EST The patient was examined together with the renal fellow Gem and I agree with the above note which accurately reflects our findings and assessment, the patient has stopped potassium citrate months ago and the 24hr urine collection was not repeated, drinking less fluid than previously, optionswere discussed, recommended to resume citrate, prescription was written, recommeded lemonade therapy, RTc with 24hr urine collection. * Romeo Macias T - 07/12/2014 10:16 AM EST Nephrology/Hypertension/Metabolic Stone Clinic Follow-up Note [id number] ID: 38 y.o.year-old female for follow up of nephrolithiasis. Past Medical History: Nephrolithiasis Hypertension Migraine Past Surgical History Procedure Laterality Date ??? section X2 ??? Orthopedic surgery Foot ??? Kidney stone surgery Extraction via cystoscopy ??? Lithotripsy Outpatient Encounter Prescriptions as of 07/12/2014 Medication Sig Dispense Refill ??? potassium Citrate (UROCIT) 10 mEq Tablet Sustained Release Take 1 tablet by mouth 3 times daily. 270 tablet 10 ??? topiramate (TOPAMAX) 25 mg tablet Take 50 mg by mouth 2 times daily. ??? SUMAtriptan (IMITREX) 100 mg tablet Take by mouth as needed. ??? amiloride (MIDAMOR) 5 mg tablet Take 1 tablet by mouth daily. 90 tablet 3 ??? hydrochlorothiazide (HYDRODIURIL) 12.5 mg tablet 12.5 MG = 1 Tablet(s), PO, Twice daily No facility-administered encounter medications on file as of 07/12/2014. Allergies Allergen Reactions ??? Adhesive ??? Lisinopril Other (See Comments) hypotension ??? Penicillins Hives Subjective: Bilateral juan antoino pains within the past week. It is intermittent and dull. Some dysuria and urinary frequency. No hematuria. Uses Advil about 3 tablets with every migraine episode. Still on topamax for migraine prophylaxis. Drinks about 2-2.5 L of water daily. Has not done the 24-hr urine analysis for this visit. ROS: 10- organ systems reviewed and found to be negative. PE: Vitals 07/12/2014 BP 129/76 Pulse 74 Resp 16 Height to cm. 162.6 cm Height in inches 5' 4 Weight (Uzbek) 172 lbs Weight (Metric) 78 kg BMI (Calculated) 29.6 BSA (Calculated - sq m) 1.88 SpO2 General: well looking Eye: Conjunctivae and sclerae clear ENT: Oropharynx benign Neck: JVP normal CV: RRR. S1, S2 normal Resp: Lungs clear Back: No CVA tenderness Abd: Soft, non-tender Lymph: No cervical or submandibular adenopathy Ext: No pretibial edema Skin: No rash Neuro: Gait normal Labs: Lab Results Component Value Date CREATININE 0.79 01/11/2014 BUN 11 01/11/2014 NA 141 01/11/2014 K 3.1* 01/11/2014 CL 104 01/11/2014 CO2 21* 01/11/2014 Results for BARBI IVEY ( ) as of 01/12/2014 10:24 Ref. Range 03/23/2013 08:05 Aldosterone Latest Range: <=21 ng/dL 22 (H) Renin Activity No range found 3.6 Renal ultrasound reviewed. Left kidney nephrolithiasis. Assessment: Nephrolithiasis, calcium phosphate 90%, calcium oxalate dihydrate 10%, with risk factors boderline hyperoxaluria and hypocitraturia. Recommendations: - 24- hr urine chemistry with litholink -potassium citrate 10 meq tid -2.5 -3 L fluid intake daily. Seen and d/w Dr. Gregory. Romeo Macias MD Nephrology Fellow Pager #[phone] CC: BELEM MIKE MD @PCPADD@ documented in this encounter Plan of Treatment Not on file documented as of this encounter Visit Diagnoses Diagnosis Nephrolithiasis Calculus of kidney documented in this encounter Care Teams News Commentator Relationship Specialty Start Date End Date Belem Mike MD [address] [place] [address] PCP - General 07/23/10 10/08/15 [facility] [address] [address] [place] [address] Long Lines OperatorStereo Plotter Operator Medicine 03/26/11 documented as of this encounter
--- OUTSIDE RECORDS SUMMARY | 2024-05-27 02:34 | XMS_ITS | Encounter Summary ---
Author Organization [facility] [place] [address] Care Team Providers Care Patch Setter Name Role Phone Jim Wei MD Primary Care Provider [phone] Encounter Details Date Type Department Care Team (Late st Contact Info) Description 01/08/2015 [place] [id number] Justin Grayson MD [facility] [place] [place] [address] Social History Tobacco Use Types Packs/Day Years Used Date Smoking Tobacco: Never Alcohol Use Standard Drinks/Week Comments Yes 0 (1 standard drink = 0.6 oz pur e alcohol) occasional Sex and Gender Information Value Date Recorded Sex Assigned at Not on file Gender Identity Not on file Sexual Orientation Not on file documented as of this encounter Miscellaneous Notes * Telephone Encounter - Justin Grayson - 01/08/2015 12:04 PM EDT Addendum at 1204PM. Received and reviewd CT scan. Mrs. Ivey has a partial staghorn stone, 20 mm in longest dimension. I informed her that she will not be able to pass this stone naturally and that a surgical intervention will be needed, likely a PCNL. I deferred final decision making to her appointment with Dr. Hernandez in 2 days. In the interim I offered her oxycodone or ureteral stenting if pain is not controlled. She stated that at this time point she was going to wait and see, but was appreciative of the option to come here and be treated should that approach fail. * Telephone Encounter - Justin Grayson - 01/08/2015 8:53 AM EDT Mrs. Ivey has known two non obstructive renal stone, last documented in 07/2014 by us. Due to see Dr. Hernandez in routine follow up in two days on 01/10. Went to [facility] ED on Thursday due to left flank pain and was told she had a quarter of an inch kidney stone flopping around in her kidney. Sent home on ibuprofen. Will as [facility] to electronically send us the images and will call her when I have had a chance to review them. documented in this encounter Plan of Treatment Not on file documented as of this encounter Visit Diagnoses Not on filedocumented in this encounter Care Teams Patch Setter Relationship Specialty Start Date End Date Jim Wei MD [address] [place] [address] PCP - General 07/23/10 10/08/15 [facility] [address] [address] [place] [address] Mold BuilderEngine Lathe Set Up Operator Tool Medicine 03/26/11 documented as of this encounter
--- OUTSIDE RECORDS SUMMARY | 2024-05-27 02:34 | XMS_ITS | Encounter Summary ---
Author Organization [facility] Address [facility] [address] [place] [address] Care Team Providers Care Store Team Member Name Role Phone Jim Wei MD Primary Care Provider [phone] Encounter Details Date Type Department Care Team (Latest Contact Info) Description 04/09/2015 2:28 PM EDT - 04/09/2015 11:59 PM EDT Hospital [place] [address] CLINIC, Sowmya Baez Jr., MD [facility] [place] [address] Kidney stone on left side Discharge Disposition: Home Social History Tobacco Use [...] Associated Diagnosis Comments US RETROPERITONEAL COMPLETE Routine 04/09/2015 2:41 PM EDT Kidney stone on left side documented in this encounter Results * US retroperitoneal complete (04/09/2015 2:41 PM EDT) Anatomical Region Laterality Modality Abdomen Ultrasound 04/09/2015 2:41 PM EDT Narrative 04/09/2015 2:47 PM EDT Renal ?(Signed Final 04/09/2015 02:46 ? pm) Patient Info ID #: ? [id number] ?: ??[birth year] (39 yrs) Name: ? BARBI FRANCISCOIR ?Visit Date: 04/09/2015 02:41 pm Performed By Performed By: ?Sam MARRUFO, Diamond Attending: ? David MILNER, Tracy Cooper Referred By: ? SOWMYA HERNANDEZ MD Service(s) Provided ??URETRO - Retroperitoneal Complete - [id number] ? [id number] Indications ??? hydro or stone Right Kidney [...] 04/09/2015 02:46 pm) Patient Info ID #: [id number] : [birth year] (39 yrs) Name: BARBI IVEY Visit Date: 04/09/2015 02:41 pm Performed By Performed By: Diamond Vargas RDMS Attending: Tracy Hernandez MD Referred By: SOWMYA HERNANDEZ MD Service(s) Provided URETRO - Retroperitoneal Complete - [id number] Indications ? hydro or stone Right Kidney [...] Electronically Signed Final Report 04/09/2015 02:46 pm Sowyma Hernandez Jr., MD IMG US GEN ORDERAB LES documented in this encounter Visit Diagnoses Diagnosis Kidney stone on left side Calculus of kidney documented in this encounter Care Teams Store Team Member Relationship Specialty Start Date End Date Jim Wei MD [address] [place] [address] PCP - General 07/23/10 10/08/15 [facility] [address] [address] [place] [address] Electrician SubstationCognos Report Developer Medicine 03/26/11 documented as of this encounter
--- OUTSIDE RECORDS SUMMARY | 2024-05-27 02:34 | XMS_ITS | Encounter Summary ---
Author Organization [place] [address] Care Team Providers Care Luncheonette Manager Name Role Phone Jim Wei MD Primary Care Provider [phone] Encounter Details Date Type Department Care Team (Late st Contact Info) Description 02/06/2015 [place] [phone] Kourtney Clark MD [facility] [place] [address] Social History Tobacco Use Types Packs/Day Years [...] * Telephone Encounter - Kourtney Clark - 02/06/2015 10:40 AM EDT Ms. Ivey is s/p PCNL on 02/01. Developed a rash (reaction to adhesive tape) with blisters. No infection or fevers, patient is just uncomfortable. Using OTC anti- itch cream. Advised against that (steroids will impair wound healing), and told them to leave the area open to air and use vaseline or bacitracin if needed. They will try that. documented in this encounter Plan of Treatment Not on file documented as of this encounter Visit Diagnoses Not on filedocumented in this encounter Care Teams Luncheonette Manager Relationship Specialty Start Date End Date Jim Wei MD [address] [place] [address] PCP - General 07/23/10 10/08/15 [facility] [address] [address] [place] [address] Nutrition AssociateLopper Medicine 03/26/11 documented as of this encounter
--- OUTSIDE RECORDS SUMMARY | 2024-05-27 02:34 | XMS_ITS | Encounter Summary ---
Author Organization [facility] Address [facility] Marib[address] [place] [address] Care Team Providers Care Produce Buyer Name Role Phone Law Santiago MD Primary Care Provider [phone] Reason for Visit * Reason Comments Nephrolithiasis Encounter Details Date Type Department Care Team (Late st Contact Info) Description 10/09/2015 2:00 PM EST Office [place] [address] Sowmya Hernandez Jr., MD [facility] [place] [address] Nephrolithiasis Social History Tobacco Use Types Packs/Day [...] Sign Reading Time Taken Comments Blood Pressure 118/77 10/09/2015 1:55 PM EST Pulse 98 10/09/2015 1:55 PM EST Temperature - - Respiratory Rate 16 10/09/2015 1:55 PM EST Oxygen Saturation - - Inhaled Oxygen Concentration - - Weight 86.2 kg (190 lb) 10/09/2015 1:55 PM EST Height 162.6 cm (5' 4) 10/09/2015 1:55 PM EST Body Mass Index 32.61 10/09/2015 1:55 PM EST documented in this encounter Progress Notes * Aleja Kaye RD - 10/09/2015 2:44 PM EST Nutrition Intervention for the Management of Kidney Stone Disease Assessment/Nutrition Diagnosis: Pt at increased nutritional lithogenic risk related to: - excessive sodium intake - low fruit/vegetable intake 24-hour Urine Results (mL/24 hours): Na 194, pH 6.95 Estimated body mass index is 32.6 kg/(m^2) as calculated from the following: Height as of this encounter: 162.6 cm (5' 4). Weight as of this encounter: 86.183 kg (190 lb). Patient Interview: Cecile feels she has been doing well dietarily and has been mindful of sodium intake, feeling confused about high sodium content in urine analysis. Discussed bagels, soup and cheese in her diet may be contributing to sodium. Typical Dietary Intake: B: Coffee with cream or Tea, Bagel (Sai honey oat and wheat 460 mg per bagel) with cream cheese,Yogurt or granola with milk L: Leftovers from the night before - rice and protein, cheese and crackers, grilled cheese and soup, water D: Protein, pasta (butter parmesan cheese or pesto) or plain rice, vegetable or two or a leafy green salad, water S: Shasta or Banana, dried fruit - Based on reported fluid intake, patient consuming approximately >2 L/day Goal is to consume approximately 2-3 L/day Will monitor fluid intake at next encounter. Intervention: - Instructed pt on Low Sodium Food Choices (under 2 grams/day) - Provided diet education materials on sodium restricted diet. Monitor/Evaluate: 1) Pt will limit sodium intake to 2000 mg per day or 500 mg per meal. 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 Metabolic evaluation has been notable for hypercalciuria, borderline normal urinary citrate, isolated low volume and hyperoxaluria. She has reduced oxalate and sodium intake and was restarted on HCTZ as well as amiloride by Dr Melvin. Mot recent intervention was left pcnl on 02/01/15. Intraoperative findings were notable for lower pole leftrenal staghorn stone. She was rendered stone free --confirmed on CT. Follow up Ct in 07/2015 confirmed she remained stone free. She is managed with 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 In the interval since last visit, she has not had recurrent renal colic or stone passage. She was diagnosed with lyme disease, is on doxycycline. Current stone related meds: HCTZ (12.5mg/d) as [...] Soft. She exhibits no distension. There is tenderness (scanr epigastric discomfort). There is no rebound and no guarding. [...] independently reviewed the renal ultrasound from today. It shows no hydronephrosis or hydroureter. No right sided stones. Possible left miguel angel lstone noted, although not particularlyhyperechoic and does not clearly have posterior shadowing. Date of Collection: 07/13/15 Volume (L/day): 3.01 Calcium (mg/day): 321 Oxalate (mg/day): 33 Citrate (mg/day): 550 uric acid (gm/day): 0.489 pH: 6.95 sodium (mmol/day): 194 sulfate (mmol/day): 32 UUN (gm/day): 6.7 ss CaOx: 5.02 ss CaPhos: 2 ssUA: 0.489 Impression/Plan: hypercalciuric nephrolithiasis We discussed further evaluation and mgmt for possible left renal stone. As it is not definitely a stone (may represent artifact) and she is asymptomatic she declines any intervention. Similarly, she will hold off on further imaging for now unless symptoms arise. Plan repeat miguel angel jessica/s in 6-9 months,sooner prn. Regarding hypercalciuria, will discuss increasing thiazide in consult with Dr Melvin today. Additionally will consult with Hamilton Kaye regarding dietary interventions including reduced sodium intake. Follow up in multi-disciplinary metabolic stone clinic in 6-9 months with repeat renal u/s. documented in this encounter Plan of Treatment [...] 01:47 pm) PATIENT INFO: ID #: ? [id number] ?: ??[birth year] (40 yrs) Name: ? CECILE IVEY ?Visit Date: 04/09/2016 10:02 am PERFORMED BY: Performed By: ? Marilee Vyas RDMS Attending: ?Johana MILNER, Arlen [place] Referred By: ?SOWMYA HERNANDEZ MD SERVICE(S) PROVIDED: ??URETRO - Retroperitoneal Complete - [id number] ? [id number] INDICATIONS: ??? stone growth COMPARISON: Renal/bladder ultrasound [...] 04/09/2016 01:47 pm) PATIENT INFO: ID #: [id number] : [birth year] (40 yrs) Name: CECILE IVEY Visit Date: 04/09/2016 10:02 am PERFORMED BY: Performed By: Marilee Vyas RDMS Attending: Arlen Vaughn MD Referred By: SOWMYA HERNANDEZ MD SERVICE(S) PROVIDED: URETRO - Retroperitoneal Complete - [id number] INDICATIONS: ? stone growth COMPARISON: Renal/bladder ultrasound [...] kidney documented in this encounter Care Teams Produce Buyer Relationship Specialty Start Date End Date Law Santiago MD PCP - General Family Medicine 10/09/15 04/08/16 [facility] [address] [address] [place] [address] Nuclear Equipment Design EngineerHosiery Mater Medicine 03/26/11 documented as of this encounter
--- OUTSIDE RECORDS SUMMARY | 2024-05-27 02:34 | XMS_ITS | Encounter Summary ---
Author Organization [facility] Address [facility] [place] [address] Care Team Providers Care Steel Box Toe Inserter Name Role Phone Jim Wei MD Primary Care Provider [phone] Encounter Details Date Type Department Care Team (Latest Contact Info) Description 01/10/2015 9:16 AM EDT - 01/10/2015 11:59 PM EDT Hospital [place] [address] Nephrolithiasis Social History Tobacco Use Types Packs/Day [...] mg tablet Take by mouth as needed. oxyCODONE (ROXICODONE) 5 mg Tablet Take 1 tablet by mouth every 4 hours as needed for Pain. 30 tablet 0 01/11/2015 02/02/2015 tamsulosin (FLOMAX) 0.4 mg Capsule, Sust. Release 24 hr Take 1 capsule by mouth daily. 30 tablet 3 01/11/2015 02/02/2015 hydrochlorothiazide (HYDRODIURIL) 12.5 mg Tablet Take 1 tablet by mouth daily. 30 tablet 12 01/10/2015 01/11/2015 nitrofurantoin, macrocrystal-monohydrat e, (MACROBID) 100 mg Capsule [...] Associated Diagnosis Comments US RETROPERITONEAL COMPLETE Routine 01/10/2015 9:36 AM EDT Nephrolithiasis documented in this encounter Results * US retroperitoneal complete (01/10/2015 9:36 AM EDT) Anatomical Region Laterality Modality Abdomen Ultrasound 01/10/2015 9:36 AM EDT Narrative 01/10/2015 10:21 AM EDT Renal ?(Signed Final 01/10/2015 10:21 ? am) Patient Info ID #: ? [id number] ?: ??[birth year] (39 yrs) Name: ? BARBI IVEY ?Visit Date: 01/10/2015 09:31 am Performed By Performed By: ?George Singletary RDMS Attending: ? Bob MILNER, Meet Lundy Referred By: ? SOWMYA HERNANDEZ MD Service(s) Provided ??URETRO - Retroperitoneal Complete - [id number] ? [id number] Indications ??? stone growth Comparison Outside CT [...] 01/10/2015 10:21 am) Patient Info ID #: [id number] : [birth year] (39 yrs) Name: BARBI IVEY Visit Date: 01/10/2015 09:31 am Performed By Performed By: George Singletary RDMS Attending: Meet Rojas MD Referred By: SOWMYA HERNANDEZ MD Service(s) Provided URETRO - Retroperitoneal Complete - [id number] Indications ? stone growth Comparison Outside CT [...] Signed Final Report 01/10/2015 10:21 am Sowmya Hernandez Jr., MD IMG US GEN ORDERAB LES documented in this encounter Visit Diagnoses Diagnosis Nephrolithiasis Calculus of kidney documented in this encounter Care Teams Steel Box Toe Inserter Relationship Specialty Start Date End Date Jim Wei MD [address] [place] [address] PCP - General 07/23/10 10/08/15 [facility] [address] [address] [place] [address] Fishing Vessel MateCamera Machinist Medicine 03/26/11 documented as of this encounter
--- OUTSIDE RECORDS SUMMARY | 2024-05-27 02:34 | XMS_ITS | Encounter Summary ---
Author Organization [facility] Address [facility] Maribeth muñoz [place] [address] Care Team Providers Care Director Of Culture Name Role Phone Arlen Ryan ND Primary Care Provider + Reason for Visit * Reason Comments Nephrolithiasis Encounter Details Date Type Department Care Team (Late st Contact Info) Description 04/09/2016 11:00 AM EDT [place] [address] Sowmya Hernandez Jr., MD [facility] [place] [address] Nephrolithiasis Social History Tobacco Use Types Packs/Day [...] Notes * Sowmya Hernandez Jr., MD - 04/09/2016 11:00 AM EDT HPI: Ms Ivey is a pleasant 40 yo woman who returns to multi-disciplinary metabolic stone clinic for urologic follow up regarding hypercalciuric mixed calcium phosphate urolithiasis. Metabolic evaluation has been notable for hypercalciuria, borderline normal urinary citrate, isolated low volume and hyperoxaluria. She had reduced oxalate and sodium intake and was restarted on HCTZ as well as amiloride by Dr Melvin. Her most recent surgical intervention for stone was left PCNL 02/01/2015, notable for left renal lower pole staghorn stone. Postop CT confirmed she had been rendered stone free. Follow up Ct in 07/2015confirmed she remained stone free. She is managed with 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 Inthe interval since last visit, she has not had recurrent renal colic or stone passage. She is also under treatment for chronic Lyme disease. Current stone related meds: HCTZ (12.5mg/d) as per Dr Melvin urocit k 10meq bid as per Dr Melvin Amiloride per Dr Melvin Review of Systems Gastrointestinal: Negative for abdominal pain. Genitourinary: Negative for flank pain and hematuria. Past medical history: HTN, urolithiasis. Past surgical history: right ureteroscopy; Left PCNL Family history: no fam hx of stones Social History: no tobacco, social EtOH. Physical Exam Constitutional: She is oriented to person, place, and time. She appears well- developed and well-nourished. No distress. HENT: Head: Normocephalic. Cardiovascular: Normal rate. Pulmonary/Chest: Effort normal. Abdominal: [...] from today. It shows no hydronephrosis or hydroureter or left sided stones. A possible, minimally shadowing 4mm right renal lower pole stone is suggested. Date of Collection: 07/13/15 Volume (L/day): 3.01 Calcium (mg/day): 321 Oxalate (mg/day): 33 Citrate (mg/day): 550 uric acid (gm/day): 0.489 pH: 6.95 sodium (mmol/day): 194 sulfate (mmol/day): 32 UUN (gm/day): 6.7 ss CaOx: 5.02 ss CaPhos: 2 ssUA: 0.489 Impression/Plan: hypercalciuric nephrolithiasis We reviewed both further diagnostic as well as mgmt options for the potential right renal stone. Wediscussed possible false positive ultrasound and role of CT to better define. She declines further imaging or intervention at this time. Plan repeat renal u/s in 6-9 months, sooner if needed. She will see Dr Melvin today to further discuss thiazide management as well as repeating chemistries to monitor thiazide therapy. documented in this encounter Plan of Treatment [...] 09:44 am) PATIENT INFO: ID #: ? [id number] ?: ??[birth year] (41 yrs) Name: ? BARBI FRANCISCOIR ?Visit Date: 02/11/2017 09:20 am PERFORMED BY: Performed By: ? Maryam MARRUFO, ??Patrizia Attending: ?Darren MILNER, Sweetie Mendoza Resident: ? Ang Rivero DO Referred By: ?SOWMYA HERNANDEZ JR Location: ? [place] SERVICE(S) PROVIDED: ??URETRO - Retroperitoneal Complete - [id number] ? [id number] INDICATIONS: ??? stones COMPARISON: Ultrasound: 04/09/16 RIGHT [...] 02/11/2017 09:44 am) PATIENT INFO: ID #: [id number] : [birth year] (41 yrs) Name: BARBI IVEY Visit Date: 02/11/2017 09:20 am PERFORMED BY: Performed By: Patrizia Francisco RDMS Attending: Sweetie Banks MD Resident: Ang Rivero DO Referred By: SOWMYA HERNANDEZ JR Location: [place] SERVICE(S) PROVIDED: URETRO - Retroperitoneal Complete - [id number] INDICATIONS: ? stones COMPARISON: Ultrasound: 04/09/16 RIGHT [...] kidney documented in this encounter Care Teams Director Of Culture Relationship Specialty Start Date End Date Arlen Ryan ND PCP - General Naturopathic Medicine 04/09/16 [facility] [address] [address] [place] [address] Doubler OperatorBending Frame Operator Medicine 03/26/11 documented as of this encounter
--- OUTSIDE RECORDS SUMMARY | 2024-05-27 02:34 | XMS_ITS | Encounter Summary ---
Author Organization [facility] Address [facility] [address] [place] [address] Care Team Providers Care Tile Layer Supervisor Name Role Phone Belem Mike MD Primary Care Provider [phone] Reason for Visit * Reason Comments Nephrolithiasis Encounter Details Date Type Department Care Team (Late st Contact Info) Description 01/10/2015 11:00 AM EDT [place] [address] César De La Rosa MD [facility] [place] [address] Romeo Macias MD [facility] [place] [address] Nephrolithiasis Discharge Disposition: Home Social History Tobacco [...] as of this encounter Progress Notes * César De La Rosa MD - 01/10/2015 3:31 PM EDT The relevant details regarding Barbi Stephani Ivey were reviewed with Dr. Macias. The assessment and plan were formulated in discussion with me and I agree with them as documented, with the following additions. I have seen and examined the patient, providing the lira components as outlined below. I agree with Dr. Macias's exam findings. Patient with hypercalciuria, hyperoxaluria and more recently hypocitraturia as major risk factors for nephrolithiasis. She will restart HCTZ, continue amiloride and take potassium citrate on a regular basis. She will repeat a 24 hour urine collection through [facility] in [address] Hernandez. * Romeo Macias - 01/10/2015 10:43 AM EDT Nephrology/Hypertension/Metabolic Stone Clinic Follow-up Note [id number] ID: 39 y.o.year-old female for follow up of nephrolithiasis. Past Medical History: Nephrolithiasis Hypertension Migraine Past Surgical History Procedure Laterality Date ??? section X2 ??? Orthopedic surgery Foot ??? Kidney stone surgery Extraction via cystoscopy ??? Lithotripsy Outpatient Encounter Prescriptions as of 01/10/2015 Medication Sig Dispense Refill ??? nitrofurantoin, macrocrystal-monohydrate, (MACROBID) 100 mg Capsule Take 100 mg by mouth 2 times daily. ??? metoprolol succinate (TOPROL-XL) 25 mg Tablet Sustained Release 24 hr Take 25 mg by mouth daily. ??? potassium chloride (K-DUR/KLOR-CON) 20 mEq Tab Sust.Rel. Particle/Crystal Take 20 mEq by mouth 2 times daily. ??? potassium Citrate (UROCIT) 10 mEq Tablet Sustained Release Take 1 tablet by mouth 3 times daily. 270 tablet 10 ??? [DISCONTINUED] topiramate (TOPAMAX) 25 mg tablet Take 50 mg by mouth 2 times daily. ??? SUMAtriptan (IMITREX) 100 mg tablet Take by mouth as needed. ??? amiloride (MIDAMOR) 5 mg tablet Take 1 tablet by mouth daily. 90 tablet 3 ??? hydrochlorothiazide (HYDRODIURIL) 12.5 mg tablet 12.5 MG = 1 Tablet(s), PO, Twice daily No facility-administered encounter medications on file as of 01/10/2015. Allergies Allergen Reactions ??? Adhesive ??? Lisinopril Other (See Comments) hypotension ??? Penicillins Hives Subjective: Stopped taking HCTZ because neurologist thought that might be worsening her migraine headaches. Stopping HCTZ did not improve migraines. Has not passed any stone or gravel since last visit. Intermittent hematuria. Also has intermittent left flank pain. Takes about 44 ounces of water daily. Off topamax for migraine headaches. ROS: 10- organ systems reviewed and found to be negative. PE: Vitals 07/12/2014 BP 129/76 Pulse 74 Resp 16 Height to cm. 162.6 cm Height in inches 5' 4 Weight (Colombian) 172 lbs Weight (Metric) 78 kg BMI (Calculated) 29.6 BSA (Calculated - sq m) 1.88 SpO2 General: comfortable Eye: Conjunctivae and sclerae clear ENT: Oropharynx benign Neck: JVP normal CV: RRR. S1, S2 normal Resp: Lungs clear Back: has left CVA tenderness without guarding Abd: Soft, non-tender Lymph: No cervical or submandibular adenopathy Ext: No pretibial edema Skin: No rash Neuro: Gait normal Labs: Lab Results Component Value Date CREATININE 0.71 01/10/2015 BUN 11 01/10/2015 NA 138 01/10/2015 K 3.7 01/10/2015 CL 100 01/10/2015 CO2 24 01/10/2015 Results for BARBI IVEY ( ) as of 01/12/2014 10:24 Ref. Range 03/23/2013 08:05 Aldosterone Latest Range: <=21 ng/dL 22 (H) Renin Activity No range found 3.6 Renal ultrasound reviewed. Increase size of left kidney stone 24-hr urine: volume 2.1, calcium 258, citrate 460, pH 6.639, Na+ 140, Assessment: Nephrolithiasis, calcium phosphate 90%, calcium oxalate dihydrate 10%, with risk factors boderline hyperoxaluria and hypocitraturia. Recommendations: - restart 12.5 mg HCTZ daily. Check potassium level today. -change potassium citrate to 10 meq bid - continue 2.5 -3 L fluid intake daily. -repeat 24-hr urine 8 weeks. -pending percutaneous stone removal to be scheduled by urologist. Seen and d/w Dr. Olegario Macias MD Nephrology Fellow Pager #[phone] CC: BELEM MIKE MD @PCPADD@ documented in this encounter Miscellaneous Notes * Addendum Note - César De La Rosa MD - 01/10/2015 3:38 PM EDTAddended by: CÉSAR DE LA ROSA on: 01/10/2015 03:38 PM Modules accepted: Level of Service * Addendum Note - Benitez Castellon - 01/10/2015 11:34 AM EDTAddended by: BENITEZ CASTELLON on: 01/10/2015 11:34 AM Modules accepted: Orders documented in this encounter Plan of Treatment Not on file documented as of this encounter Procedures Procedure Name Priority Date/Time Associated Diagnosis Comments LAB SCAN 08/03/2015 12:00 AM EST BASIC METABOLIC PANEL Routine 01/10/2015 11:37 AM EDT Nephrolithiasis documented in this encounter Results * SCAN DOC: LAB (08/03/2015 12:00 AM EST) Scanning Provider MEDIA MGR SCAN EXT O RDR/RSLT * Basic Metabolic Panel (non-fasting) (01/10/2015 11:37 AM EDT) [facility] Glucose 91 60 - 199 mg/dL CERNER MILLENNIUM Comment:Diabetes: >=200 mg/d L plus symptoms Blood Urea Nitrogen 11 8 - 18 mg/dL CERNER MILLENNIUM Creatinine 0.71 0.70 - 1.20 mg/dL CERNER MILLENNIUM Comment: Please note that the pediatric reference intervals supplied above were not validated at [facility]. Results from pediatric patients should be interpreted in conjunction to the patient's age, height and muscle mass. Sodium 138 135 - 145 mmol/L CERNER MILLENNIUM Potassium 3.7 3.5 - 5.0 mmol/L CERNER MILLENNIUM Comment: Please note: ??Patients with WBC >100,000 may have falsely elevated Potassium levels. ??For accurate Potassium quantification in these patients send serum separator tube (gold top) for subsequent determinations. ??Contact the Clinical Chemistry Laboratory if there are any questions. Chloride 100 98 - 107 mmol/L CERNER MILLENNIUM Carbon Dioxide 24 22 - 31 mmol/L CERNER MILLENNIUM Anion Gap 14 5 - 15 mmol/L CERNER MILLENNIUM Calcium 8.7 8.5 - 10.5 mg/dL CERNER MILLENNIUM Est [...] the following links into your internet browser. [email or web address] Blood specimen (specimen) 01/10/2015 11:37 AM EDT 01/10/2015 11:50 AM EDT Narrative Resulting Agency Comment Spec In Lab César De La Rosa MD CHEMISTRY [facility]AB [facility] documented in this encounter Visit Diagnoses Diagnosis Nephrolithiasis Calculus of kidney documented in this encounter Care Teams Tile Layer Supervisor Relationship Specialty Start Date End Date Belem Mike MD [address] [place] [address] PCP - General 07/23/10 10/08/15 [facility] [address] [address] [place] [address] Personal Computer Network EngineerRn Midwife Medicine 03/26/11 documented as of this encounter
--- OUTSIDE RECORDS SUMMARY | 2024-05-27 02:34 | XMS_ITS | Encounter Summary ---
Author Organization [facility] Address [facility] [address] [place] [address] Care Team Providers Care Interventional Radiology Tech Name Role Phone Jim Wei MD Primary Care Provider [phone] Encounter Details Date Type Department Care Team (Late st Contact Info) Description 01/10/2015 Orders Only Nephrology [place] [id number] Matthew Melvin MD [facility] [place] [address] Nephrolithiasis Social History Tobacco Use Types Packs/Day [...] documented as of this encounter Results * Basic Metabolic Panel (non-fasting) (01/10/2015 11:37 AM EDT) [facility] Glucose 91 60 - 199 mg/dL [facility] Comment:Diabetes: >=200 mg/d L plus symptoms Blood Urea Nitrogen 11 8 - 18 mg/dL [facility] Creatinine 0.71 0.70 - 1.20 mg/dL CERNER MILLENNIUM Comment: Please note that the pediatric reference intervals supplied above were not validated at [facility]. Results from pediatric patients should be interpreted [...] the following links into your internet browser. [email or web address] Blood specimen (specimen) 01/10/2015 11:37 AM EDT 01/10/2015 11:50 AM EDT Narrative Resulting Agency Comment Spec In Lab Matthew Melvin MD CHEMISTRY ORDERAB LES ASTER FREDERICK documented in this encounter Visit Diagnoses Diagnosis Nephrolithiasis Calculus of kidney documented in this encounter Care Teams Interventional Radiology Tech Relationship Specialty Start Date End Date Jim Wei MD [address] [place] [address] PCP - General 07/23/10 10/08/15 [facility] [address] [address] [place] [address] Elevator ConstructorEngineering Clerk Medicine 03/26/11 documented as of this encounter
--- OUTSIDE RECORDS SUMMARY | 2024-05-27 02:34 | XMS_ITS | Encounter Summary ---
Author Organization [facility] [place] [address] Care Team Providers Care Car Sweeper Name Role Phone Jim Wei MD Primary Care Provider [phone] Reason for Referral * Diagnostic Test (Routine) - Closed Specialty Diagnoses / Procedures Referred By Contac t Referred To Contact Radiology Diagnoses History of kidney stones Hematuria Procedures CT Abdomen & Pelvis Wo Contrast (GENERIC) Mahad Mccullough MD [facility] [place] [address] [facility] [place] [address] Referral ID Status Reason Start Date Expiration Date V isits Requested Visits Authorized [id number] Closed Specialty Service Requested 07/24/2015 10/22/2015 1 1 Reason for Visit * Reason Comments Hematuria Nephrolithiasis Encounter Details Date Type Department Care Team (Late st Contact Info) Description 07/24/2015 11:40 AM EST [place] [address] Sowmya Ingram Jr., MD [facility] [place] [address] History of kidney stones; Hematuria Social History Tobacco Use Types Packs/Day Years [...] of this encounter Progress Notes * Sowmya Ingram Jr., MD - 07/24/2015 3:11 PM EST I saw and examined Barbi Ivey with Dr. Mccullough and have independently reviewed her imaging studies. I agree with history, exam, impression, and plan as noted. No evidence of stone on CT. She willfollow up with her PCP for her back pain with radiation down her leg. * Mahad Mccullough - 07/24/2015 12:01 PM EST HPI: Barbi Ivey returns for follow up regarding recurrent urolithiasis and new onset hematuria. This pleasant 39 year old woman underwent left pcnl on 02/01/15. Intraoperative findings were notablefor lower pole left renal staghorn stone. She was rendered stone free --confirmed on CT. She has known hypercalciuric/hyperoxaluric stone disease. Metabolic evaluation has been notable forhypercalciuria, borderline normal urinary citrate, isolated low volume and hyperoxaluria. She has reduced oxalate and sodium intake and was restarted on HCTZ as well as amiloride by Dr Melvin. In interim since last being seen in Urology clinic, reporting left flank pain and report of microscopic blood in her urine. Had her urine dipped with PCP which was notable for blood only. No fevers/chills, no passage of further stone fragments. She is having 7/10 left flank pain, radiating down to her left abdomen. Also reporting left lower back pain with radiation down the leg with numbness. Review of Systems Constitution: Negative for chills and fever. Cardiovascular: Negative for chest pain. Respiratory: Negative for cough and shortness of breath. Gastrointestinal: Negative for abdominal pain, diarrhea, nausea and vomiting. Genitourinary: Positive for flank pain and hematuria. Past medical history: HTN, urolithiasis. Past surgical history: right ureteroscopy; Left PCNL Family history: no fam hx of stones Social History: no tobacco, social EtOH. Physical Exam Constitutional: She is oriented to person, place, and time. She appears well- developed and well-nourished. HENT: Head: Normocephalic and atraumatic. Cardiovascular: Normal rate. Pulmonary/Chest: Effort normal and breath sounds normal. Abdominal: Soft. She exhibits no distension. There is no tenderness. There is no rebound and no guarding. +left CVA tenderness, none on right. Tenderness in right side of abdomen Musculoskeletal: Left lower back pain on palpation Neurological: She is alert and oriented to person, place, and time. Psychiatric: She has a normal mood and affect. Her behavior is normal. Vitals reviewed. U/A: No leuk esterase, nitrite, or heme. Stone analysis: 60% Calcium phosphate (apatite); 30% Magnesium ammonium phosphate (struvite); 10% Calcium oxalate dihydrate Imaging studies: I independently reviewed the CT A/P from today. It shows no hydronephrosis, kidneystones, or ureteral stones bilaterally. Impression/Plan: history of nephrolithiasis Presents today for unplanned follow up in regards to new left side flank pain and reported hematuria. CVA tenderness on exam, UA negative. She was sent down for a CT A/P which showed no evidence of stones or hydronephrosis. Her left flank and low back pain may be related to a musculoskeletal or neurologic issue. CT reviewed - -reveals no evidence of residual urolithiasis or hydronephrosis. No specific causefor pain identified. I have instructed her to follow up with her PCP to assess for other sources ofher back pain. I informed her that if pain persists/increases, she may need to present to the ER aswell. She is scheudled to collect 2 24h urines to follow metabolic stone proclivity and will follow up inmulti-disciplinary metabolic stone clinic. From a metabolic standpoint: Continue HCTZ (12.5mg/d) as per Dr Melvin Continue urocit k 10meq bid as per Dr Melvin Follow up in multi-disciplinary metabolic stone clinic in October 2015. STAFF ADDENDUM: I saw and examined Barbi Ivey with Dr. Mccullough and have independently reviewed her imaging studies. I agree with history, exam, impression, and plan as noted. SOWMYA INGRAM JR, MD documented in this encounter Plan of Treatment Not on file documented as of this encounter Results * CT Abdomen & [...] structures: No suspicious lesions. Procedure Note Alvarado Catsellon MD - 07/24/2015 EXAMINATION: CT ABDOMEN AND [...] lesions. IMPRESSION IMPRESSION: No hydronephrosis or urolithiasis. Sowmya Ingram Jr., MD IMG CT ORDERABLES documented in this encounter Visit Diagnoses Diagnosis History of kidney stones Personal history of urinary calculi Hematuria Hematuria, unspecified History of kidney stones Personal history of urinary calculi Hematuria Hematuria, unspecified documented in this encounter Care Teams Car Sweeper Relationship Specialty Start Date End Date Jim Wei MD [address] [place] [address] PCP - General 07/23/10 10/08/15 [facility] [address] [address] [place] [address] Assembler Flexible LeadsJacket Changer Medicine 03/26/11 documented as of this encounter
--- OUTSIDE RECORDS SUMMARY | 2024-05-27 02:35 | XMS_ITS | Encounter Summary ---
Author Organization [facility] Address [facility] [address] [place] [address] Care Team Providers Care Slat Basket Top Maker Name Role Phone Jim Wei MD Primary Care Provider [phone] Encounter Details Date Type Department Care Team (Late st Contact Info) Description 02/01/2014 [place] [phone] Emeka Hernandez Jr., MD [facility] [place] [address] Social History Tobacco Use Types Packs/Day Years Used Date Smoking Tobacco: Never Alcohol Use Standard Drinks/Week Comments Yes 0 (1 standard drink = 0.6 oz pur e alcohol) occasional Sex and Gender Information Value Date Recorded Sex Assigned at Not on file Gender Identity Not on file Sexual Orientation Not on file documented as of this encounter Miscellaneous Notes * Telephone Encounter - Vilma Smith LPN - 02/01/2014 9:31 AM EDT [facility] calls today reporting that the order for BMP from Rashard Raphael and David is unreadable. New order printed and faxed. documented in this encounter Plan of Treatment Not on file documented as of this encounter Visit Diagnoses Diagnosis History of kidney stones- Primary Personal history of urinary calculi documented in this encounter Care Teams Slat Basket Top Maker Relationship Specialty Start Date End Date Jim Wei MD [address] [place] [address] PCP - General 07/23/10 10/08/15 [facility] [address] [address] [place] [address] Ac/Dc RewinderTong Hooker Medicine 03/26/11 documented as of this encounter
--- OUTSIDE RECORDS SUMMARY | 2024-05-27 02:35 | XMS_ITS | Encounter Summary ---
Author Organization [facility] Address [facility] [place] [address] Care Team Providers Care Log Roper Name Role Phone Jim Wei MD Primary Care Provider [phone] Encounter Details Date Type Department Care Team (Latest Contact Info) Description 03/16/2013 10:10 AM EDT - 03/16/2013 11:59 PM EDT Hospital En[place] [address] Calculus of kidney Social History Tobacco Use Types Packs/Day Years [...] Sig Dispensed Refills Start Date End Date Potassium Citrate (UROCIT) 10 mEq TbSRIndications:Nephrol ithiasis,Hypokalemia Take 1 tablet by mouth 2 times daily. 180 tablet 3 03/16/2013 07/20/2013 potassium chloride (K-DUR/KLOR-CON) 20 mEq extended release tabletIndications:Nephr olithiasis,Hypokalemia Take 2 tablets by mouth 3 times daily. 540 tablet 3 03/16/2013 07/20/2013 amiloride (MIDAMOR) 5 mg tabletIndications:Nephr olithiasis,Hypokalemia Take 1 tablet by mouth daily. 90 tablet 3 03/16/2013 04/09/2016 hydrochlorothiazide (HYDRODIURIL) 12.5 mg tablet 12.5 MG = 1 Tablet(s), PO, Twice daily 04/18/2010 10/09/2015 documented as of this encounter Plan of Treatment Not on file documented as of this encounter Procedures Procedure Name Priority Date/Time Associated Diagnosis Comments US RETROPERITONEAL COMPLETE STAT 03/16/2013 10:55 AM EDT Calculus of kidney documented in this encounter Results * US retroperitoneal complete (03/16/2013 10:55 AM EDT) Anatomical Region Laterality Modality Abdomen Ultrasound 03/16/2013 10:5 5 AM EDT Narrative 03/16/2013 11:16 AM EDT ? Renal ? (Signed Final 03/16/2013 11:16 am) Patient Info ID: ? [id number] ? : ??[birth year] (37 yrs) Name: ? BARBI IVEY ? Visit Date: 03/16/2013 10:53 am Performed By Performed By: ?Maryam SHARMACA, ??Patrizia Associate: ? Abhinav MILNER, Peter Mathew Attending: ? Arlen Vaughn MD Referred By: ? SOWMYA HERNANDEZ MD Service(s) Provided URETRO - Retroperitoneal Complete - [id number] ? [id number] Indications History of kidney stones Comparison CT abd/pelvis and renal ultrasound dated 09/08/2012 Right Kidney Size (cm) ?L: ??10.6 Cortical Thickness: ?Normal Cortical Echogenicity: ?? Normal Hydronephrosis: ?No sonographic evidence Comment: ?No renal calculi visualized. Left Kidney Size (cm) ?L: ??11.3 Cortical Thickness: ?Normal Cortical Echogenicity: ?? Normal Hydronephrosis: ?No sonographic evidence Comment: ?No renal calculi visualized. Urinary Bladder Pre-void (cm) ? L: ??6.2 ? AP: ??3.5 ? TV: ??7.9 Vol (ml): ?89.8 Comment: ?Partially distended, unremarkable for degree of ? distention. Impression Ultrasound - ??Retroperitoneal Complete - Summary Normal renal and bladder ultrasound. ??The 4 mm left interpolar renal stone seen on the prior CT is not visualized on the current ultrasound nor on the prior Aug 2012 ultrasound at the time of the prior CT. I ??viewed the images and agree with the above interpretation. Thank you for allowing us to participate in the care of BARBI IVEY. Please do not hesitate to call if you have any questions. ? Arlen Vaughn MD Electronically Signed Final Report ?? 03/16/2013 11:16 am Film and interpretation reviewed by the attending Procedure Note Arlen Vaughn MD - 03/16/2013 Renal (Signed Final 03/16/2013 11:16 am) Patient Info ID: [id number] : [birth year] (37 yrs) Name: BARBI IVEY Visit Date: 03/16/2013 10:53 am Performed By Performed By: Patrizia Francisco RDMS Associate: Peter La MD Attending: Arlen Vaughn MD Referred By: SOWMYA HERNANDEZ MD Service(s) Provided URETRO - Retroperitoneal Complete - [id number] Indications History of kidney stones Comparison CT abd/pelvis and renal ultrasound dated 09/08/2012 Right Kidney Size (cm) L: 10.6 Cortical Thickness: Normal Cortical Echogenicity: Normal Hydronephrosis: No sonographic evidence Comment: No renal calculi visualized. Left Kidney Size (cm) L: 11.3 Cortical Thickness: Normal Cortical Echogenicity: Normal Hydronephrosis: No sonographic evidence Comment: No renal calculi visualized. Urinary Bladder Pre-void (cm) L: 6.2 AP: 3.5 TV: 7.9 Vol (ml): 89.8 Comment: Partially distended, unremarkable for degree of distention. Impression Ultrasound - Retroperitoneal Complete - Summary Normal renal and bladder ultrasound. The 4 mm left interpolar renal stone seen on the prior CT is not visualized on the current ultrasound nor on the prior Aug 2012 ultrasound at the time of the prior CT. I viewed the images and agree with the above interpretation. Thank you for allowing us to participate in the care of BARBI IVEY. Please do not hesitate to call if you have any questions. Arlen Vaughn MD Electronically Signed Final Report 03/16/2013 11:16 am Film and interpretation reviewed by the attending Sowmya Hernandez Jr., MD IMG US GEN ORDERAB LES documented in this encounter Visit Diagnoses Diagnosis Calculus of kidney documented in this encounter Care Teams Log Roper Relationship Specialty Start Date End Date Jim Wei MD [address] [place] [address] PCP - General 07/23/10 10/08/15 [facility] [address] [address] [place] [address] German ProfessorOracle Application Consultant Medicine 03/26/11 documented as of this encounter
--- OUTSIDE RECORDS SUMMARY | 2024-05-27 02:35 | XMS_ITS | Encounter Summary ---
Author Organization [facility] Address [facility] Marib[address] [place] [address] Care Team Providers Care Laser Set Up Operator Name Role Phone Jim Wei MD Primary Care Provider [phone] Encounter Details Date Type Department Care Team (Late st Contact Info) Description 03/28/2013 Telephone [place]phrology [place] [id number] Matthew Melvin MD [facility] [place] [address] Social History Tobacco Use Types Packs/Day Years Used Date Smoking Tobacco: Never Alcohol Use Standard Drinks/Week Comments Yes 0 (1 standard drink = 0.6 oz pur e alcohol) occasional Sex and Gender Information Value Date Recorded Sex Assigned at Not on file Gender Identity Not on file Sexual Orientation Not on file documented as of this encounter Miscellaneous Notes * Telephone Encounter - Matthew Melvin MD - 03/28/2013 6:18 PM EDT Repeat plasma aldosterone and PRA showed that PRA was not suppressed; nathaniel was in normal range. I called the patient and asked her to do the followin. Stop HCTZ entirely for 3 days, then resume at HCTZ 12.5 mg once daily; 2. Continue KCL and K-citrate for three days, then discontinue; and 3. Start amiloride 5 mg once daily after 3 days. We will repeat electrolytes in 3 weeks. The goal is to decrease urine calcium without significant hypokalemia (by reducing HCTZ dose and starting amiloride)and without increasing high urine pH (by discontinuing potassium citrate). I will call her again when the lab results are received. documented in this encounter Plan of Treatment Not on file documented as of this encounter Visit Diagnoses Not on filedocumented in this encounter Care Teams Laser Set Up Operator Relationship Specialty Start Date End Date Jim Wei MD [address] [place] [address] PCP - General 07/23/10 10/08/15 [facility] [address] [address] [place] [address] Vessel BuilderScientific Informatics Analyst Medicine 03/26/11 documented as of this encounter
--- OUTSIDE RECORDS SUMMARY | 2024-05-27 02:35 | XMS_ITS | Encounter Summary ---
Author Organization [facility] Address [facility] [address] [place] [address] Care Team Providers Care Broadcast Operations Manager Name Role Phone Jim Wei MD Primary Care Provider [phone] Encounter Details Date Type Department Care Team (Late st Contact Info) Description 01/13/2014 [place] [id number] Nubia Perez MD [facility] [place] [address] Social History Tobacco Use Types Packs/Day Years Used Date Smoking Tobacco: Never Alcohol Use Standard Drinks/Week Comments Yes 0 (1 standard drink = 0.6 oz pur e alcohol) occasional Sex and Gender Information Value Date Recorded Sex Assigned at Not on file Gender Identity Not on file Sexual Orientation Not on file documented as of this encounter Progress Notes * Aleisha Stevenson LNA - 01/13/2014 1:18 PM EDT Urine culture on 01/11/2014 will be a no treat per Dr. Perez COLLECTED: 01/11/2014 17:44 STARTED: 01/11/2014 17:44 FINAL REPORT Final Report Verified:01/12/2014 15:15 1,000-9,000 cfu/ml Gram Positive organisms , probable contaminant documented in this encounter Plan of Treatment Not on file documented as of this encounter Visit Diagnoses Not on filedocumented in this encounter Care Teams Broadcast Operations Manager Relationship Specialty Start Date End Date Jim Wei MD [address] [place] [address] PCP - General 07/23/10 10/08/15 [facility] [address] [address] [place] [address] Irrigation Tax Assessor CollectorDetective Precinct Medicine 03/26/11 documented as of this encounter
--- OUTSIDE RECORDS SUMMARY | 2024-05-27 02:35 | XMS_ITS | Encounter Summary ---
Author Organization [facility] Address [facility] [address] [place] [address] Care Team Providers Care Records Officer Name Role Phone Jim Wei MD Primary Care Provider [phone] Reason for Visit * Reason Comments Nephrolithiasis Encounter Details Date Type Department Care Team (Late st Contact Info) Description 06/22/2012 10:40 AM EDT [place] [address] Sowmya Ingram Jr., MD [facility] [place] [address] Calculus of kidney; History of kidney stones Discharge Disposition: Home Social History Tobacco Use [...] Sign Reading Time Taken Comments Blood Pressure 129/91 06/22/2012 10:36 AM EDT Pulse 98 06/22/2012 10:36 AM EDT Temperature - - Respiratory Rate - - Oxygen Saturation - - Inhaled Oxygen Concentration - - Weight 74.8 kg (165 lb) 06/22/2012 10:36 AM EDT Height 162.6 cm (5' 4) 06/22/2012 10:36 AM EDT Body Mass Index 28.32 06/22/2012 10:36 AM EDT documented in this encounter Progress Notes * Sowmya Ingram Jr., MD - 06/22/2012 11:04 AM EDT Subjective: Patient ID: Cecile Ivey is a 36 y.o. female. HPI Ms. Ivey is a very pleasant 36 years old woman who returns for urologic follow up regarding her hypercalciuric/hyperoxaluric stone disease. Metabolic evaluation was notable for hypercalciuria, borderline normal urinary citrate, isolated low volume and hyperoxaluria. With dietary oxalate reduction, she had markedly decreased her urinary oxalate and her calcium oxalate supersaturation. With dietary changes (low sodium, lower protein diet) and HCTZ, her hypercalciuria also improved. In the interval since last visit, she has not passed any additional stones. She is comfortable and denies any current lateralizing abd/flank pain, hematuria, nausea, vomiting, or fever. Her last u/s in 02/2012 showed no evidence of urinary tract stones orhydronephrosis. We added supplemental KCl for her hypokalemia and she has been tolerating this well. Past medical history: HTN, urolithiasis. Past surgical history: right ureteroscopy. Family history: no fam hx of stones Social History: no tobacco, social EtOH. Dietary History: Greater than 2 liters fluid intake/day; lower sodium intake; moderate purine/animal protein intake; low oxalate intake; improving dairy intake UROLOGIC MEDICATIONS: Urocit-K 10 10 mEq Tablet Sustained Release 10 MEQ = 2 Tablet(s) / Oral Twice daily Hydrochlorothiazide 12.5 mg Tablet 12.5 MG = 1 Tablet(s) / Oral Twice daily Potassium Chloride 10meq bid Review of Systems As above otherwise unchanged since last visit of 02/2012 Objective: Physical Exam Vitals reviewed. Constitutional: She is oriented to person, place, and time. She appears well- developed and well-nourished. No distress. HENT: Head: Normocephalic and atraumatic. Cardiovascular: Normal rate. Pulmonary/Chest: Effort normal. No respiratory distress. Abdominal: Soft. She exhibits no distension. No tenderness. She has no rebound and no guarding. Genitourinary: No CVA tenderness to percussion Neurological: She is alert and oriented to person, place, and time. Skin: Skin is warm and dry. She is not diaphoretic. Psychiatric: She has a normal mood and affect. Her behavior is normal. Laboratory studies: 24 hour urine: 01/29/12 (prior 02/13/10, 10/04/09 and 08/14 2009): volume: 1.98 liters (normal / decreased at 2.35 2.24 and 1.30 liters). calcium: improved 121 (mildly elevated at 149 271 and 192 mg/day.) oxalate: 54 ( 33 27 and 53 mg/day.) uric acid: 465 (normal at 733 454 and 396 mg/day.) citrate: 785 (normal at 522 564 and 544 mg/day.) pH: 7.268 (6.656 7.133 and 6.463.) sodium: 101 (normal at 78, 156 and 105 mmol/day) supersaturations: calcium oxalate: 6.71 (prior markedly improved 3.64, previously elevated at 5.58 and 17.01) calcium phosphate:1.36 (1.39 prior elevated at 2.43 and 2.38) uric acid: 0.03 (normal at 0.17, 0.48 and 0.24) Results for CECILE IVEY ( ) as of 06/22/2012 11:06 Ref. Range 06/22/2012 09:24 Sodium Latest Range: 135-145 mmol/L 139 Potassium Latest Range: 3.5-5.0 mmol/L 3.3 (L) Chloride Latest Range: 98-107 mmol/L 103 CO2 Latest Range: 22-31 mmol/L 24 Anion Gap Latest Range: 5-15 mmol/L 12 BUN Latest Range: 8-18 mg/dL 13 Creatinine Latest Range: 0.70-1.20 mg/dL 0.69 (L) Estimated GFR Latest Range: >=60 >60 Glucose Lvl Latest Range: 60-199 mg/dL 84 Calcium Latest Range: 8.5-10.5 mg/dL 8.8 Assessment and Plan: Impression/Plan: 1)Urolithiasis -- hypercalciuric borderline hypocitraturic urolithiasis. - BMP today notable for improving hypokalemia, although it remains suboptimal. We discussed means to supplement potassium, including diet and Rx. Would not further increase potassium citrate as her urine pH should not be pushed any higher. She agrees with increasing KCl Rx. -Increased KCl to 20 meq bid -I asked her to have BMP rechecked in 1-2 weeks. She will coordinate to have this done locally withher PCP, but will return here if she cannot do it locally. -She will return to see me in 3 months with repeat bmp and renal u/s. documented in this encounter Plan of Treatment Not on file documented as of this encounter Procedures Procedure Name Priority Date/Time Associated Diagnosis Comments BASIC METABOLIC PANEL STAT 06/22/2012 9:24 AM EDT Calculus of kidney documented in this encounter Results * US retroperitoneal complete (09/08/2012 3:06 PM EST) Anatomical Region Laterality Modality Abdomen Ultrasound 09/08/2012 3:06 PM EST Narrative 09/08/2012 3:21 PM EST ? Renal ? (Signed Final 09/08/2012 03:20 pm) Patient Info ID: ? [id number] ? : ??[birth year] (36 yrs) Name: ? CECILE IVEY ? Visit Date: 09/08/2012 02:50 pm Performed By Performed By: ?Patrizia Francisco RDMS Associate: ? Aida MILNER, [place] Attending: ? Meet Rojas MD Referred By: ? SOWMYA INGRAM MD Service(s) Provided URETRO - Retroperitoneal Complete - [id number] ? [id number] Indications History of stones Comparison Ultrasound: 03/16/12 Right Kidney Size (cm) ?L: ??11.2 Cortical Thickness: ?Normal Cortical Echogenicity: ?? Normal Hydronephrosis: ?No sonographic evidence Comment: ?No renal calculus. Left Kidney Size (cm) ?L: ??11.8 Cortical Thickness: ?Normal Cortical Echogenicity: ?? Normal Hydronephrosis: ?No sonographic evidence Comment: ?No renal calculus. Urinary Bladder Pre-void (cm) ? L: ??9.5 ? AP: ??7.2 ? TV: ??9.8 Vol (ml): ?351 Comment: ?Partially distended, normal contour Impression Ultrasound - ??Retroperitoneal Complete - Summary Normal renal and bladder ultrasound. ??NO stones. I ??viewed the images and agree with the above interpretation. Thank you for allowing us to participate in the care of CECILE IVEY. Please do not hesitate to call if you have any questions. ? Meet Rojas MD Electronically Signed Final Report ?? 09/08/2012 03:20 pm Film and interpretation reviewed by the attending Procedure Note Meet Rojas MD - 09/08/2012 Renal (Signed Final 09/08/2012 03:20 pm) Patient Info ID: [id number] : [birth year] (36 yrs) Name: CECILE IVEY Visit Date: 09/08/2012 02:50 pm Performed By Performed By: Patrizia Francisco [facility] Associate: [place] Parra MD Attending: Meet Rojas MD Referred By: SOWMYA INGRAM MD Service(s) Provided URETRO - Retroperitoneal Complete - [id number] Indications History of stones Comparison Ultrasound: 03/16/12 Right Kidney Size (cm) L: 11.2 Cortical Thickness: Normal Cortical Echogenicity: Normal Hydronephrosis: No sonographic evidence Comment: No renal calculus. Left Kidney Size (cm) L: 11.8 Cortical Thickness: Normal Cortical Echogenicity: Normal Hydronephrosis: No sonographic evidence Comment: No renal calculus. Urinary Bladder Pre-void (cm) L: 9.5 AP: 7.2 TV: 9.8 Vol (ml): 351 Comment: Partially distended, normal contour Impression Ultrasound - Retroperitoneal Complete - Summary Normal renal and bladder ultrasound. NO stones. I viewed the images and agree with the above interpretation. Thank you for allowing us to participate in the care of CECILE IVEY. Please do not hesitate to call if you have any questions. Meet Rojas MD Electronically Signed Final Report 09/08/2012 03:20 pm Film and interpretation reviewed by the attending Sowmya Ingram Jr., MD [facility] GEN ORDERAB LES * (ABNORMAL) Basic Metabolic Panel (non-fasting) (06/22/2012 9:24 AM EDT) Glucose 84 60 - 199 mg/dL CERNER MILLENNIUM Comment:Diabetes: >=200 mg/d L plus symptoms Blood Urea Nitrogen 13 8 - 18 mg/dL CERNER MILLENNIUM Creatinine 0.69(L) 0.70 - 1.20 mg/dL CERNER MILLENNIUM Comment: Please note that the pediatric reference intervals supplied above were not validated at [facility]. Results from pediatric patients should be interpreted in conjunction to the patient's age, height and muscle mass. Sodium 139 135 - 145 mmol/L CERNER MILLENNIUM Potassium 3.3(L) 3.5 - 5.0 mmol/L CERNER MILLENNIUM Comment: Please note: ??Patients with WBC >100,000 may have falsely elevated Potassium levels. ??For accurate Potassium quantification in these patients send serum separator tube (gold top) for subsequent determinations. ??Contact the Clinical Chemistry Laboratory if there are any questions. Chloride 103 98 - 107 mmol/L CERNER MILLENNIUM Carbon Dioxide 24 22 - 31 mmol/L CERNER MILLENNIUM Anion Gap 12 5 - 15 mmol/L CERNER MILLENNIUM Calcium 8.8 8.5 - 10.5 mg/dL CERNER MILLENNIUM Est Glomerular Filtration Rate >60 >=60 CERNER MILLENNIUM Comment: The National Kidney Disease Education Program (NKDEP) has recommended all laboratories report estimated GFR (eGFR) along with plasma creatinine measurements to assist you with recognition of early kidney disease. Caveats: ??Plasma creatinine should be at steady-state (unchanged within the past week). For patients multiply eGFR by 1.2. The MDRD equation was developed using patients between the ages of 18 and 70 years. ?? The MDRD equation has not been validated for patients < 18 years of age and should not be used to assess renal function in the pediatric population. ??The MDRD eGFR equation will also overestimate the true GFR of patients above the age of 70. ??This overestimation is variable but increases with age. At present, NKDEP does NOT recommend using the MDRD equation for drug dosing purposes and pharmacists should continue to use their current dosing methods. In addition, numerical eGFR values greater than 60 ml/min/1.73 square meters should be treated as > 60, and not an exact number due to greater inaccuracies at these higher values. Per NKDEP, they classify normal renal function as any GFR >60ml/min/1.73 square meters; chronic kidney disease when GFR <60, and renal failure when GFR <15. ??This calculation may not be valid for patients with atypical muscle mass (very lean or obese), acute renal failure, and in patients with diabetic kidney disease. References: http://nkdep.nih.gov/resources/NKDEP_Suggestn4Labs_0606_508.pdf http://www.kidney.org/professionals/kls/pdf/faq_gfr.pdf Sonia K, Puneet NA, Marcia AK, Shashank TS, Pavithra AD, Omkar ROBINSON. Relative performance of the MDRD and CKD-EPI equations for estimating glomerular filtration rate among patients with varied clinical presentations. Clin J Am Soc Nephrol;6:1963-72. Blood specimen (specimen) 06/22/2012 9:24 AM EDT 06/22/2012 9:49 AM EDT Narrative Resulting Agency Comment Spec In Lab Sowmya Ingram Jr., MD CHEMISTRY ORDERABL ES Performing Organization Address City/State/[facility] Co de Phone Number [facility] documented in this encounter Visit Diagnoses Diagnosis Calculus of kidney History of kidney stones Personal history of urinary calculi Calculus of kidney documented in this encounter Care Teams Records Officer Relationship Specialty Start Date End Date Jim Wei MD [address] [place] [address] PCP - General 07/23/10 10/08/15 [facility] [address] [address] [place] [address] Stage Settings PainterMachine Erector Medicine 03/26/11 documented as of this encounter
--- OUTSIDE RECORDS SUMMARY | 2024-05-27 02:35 | XMS_ITS | Encounter Summary ---
Author Organization [facility] Address [facility] Maribeth muñ[place] [address] Care Team Providers Care Chief Juvenile Probation Officer Name Role Phone Jim Wei MD Primary Care Provider [phone] Reason for Visit * Reason Comments Right Shoulder Pain Cervicalgia Encounter Details Date Type Department Care Team (Late st Contact Info) Description 10/17/2011 11:45 AM EST Follow-[place] [address] Nacho Almonte MD [facility] [place] [address] Right shoulder pain (Primary Dx) Discharge Disposition: Home Social History [...] Sign Reading Time Taken Comments Blood Pressure 152/109 10/17/2011 11:31 AM EST Pulse 102 10/17/2011 11:31 AM EST Temperature - - Respiratory Rate - - Oxygen Saturation 99% 10/17/2011 11:31 AM EST Inhaled Oxygen Concentration - - Weight - - Height - - Body Mass Index - - documented in this encounter Progress Notes * Nacho Almonte MD - 10/17/2011 2:22 PM EST Patient returns for followup for right shoulder pain associated with neck pain following a workers compensation injury. She is doing much better the patient is off of the opioids. She still has pain along the upper border of the trapezius from the base of the neck out towards the shoulder. She brings up the abnormalities on her cervical MRI. I went back and reviewed those MRIs. From last year. There certainly a C3-4 disc osteophyte complex not impinging upon the cord or any root but there was some narrowing of the C3-4 neural foramen the radiologist noted on the left but I also noted not onlythe left but the right side. This could be irritating the right C4 nerve which would be coming out and innervating that upper fibers of the trapezius where her pain is. While I didn't think there wasany further injections at my last visit I was talking about myofascial pain I had been planning allalong to consider doing a cervical epidural steroid if the trigger points did not help and I think it's time to do the cervical epidural steroid injection now that she is near medical end point. We will over the risk bruising soreness infection nerve injury including paralysis quadriplegia no relief of her pain worsening of her pain reaction to medication and headache. She would like to try that and see if that helps at all. There is question about repeating a new cervical MRI being that this is now 1-year-old. I don't think we need to do that for the cervical epidural steroid injection but we'll probably have to do it before we send her to a spine surgeon to it appears clearly that they'regoing to continue looking for resolution of the ongoing pain issue. We'll see what happens first with a cervical epidural steroid injection. We spent approximately 25 minutes of direct [id number] time with the patient and her of which more than 15 minutes was spent discussing the workers compensation case, her shoulder pain her muscle pain in her neck pain and coming to the conclusion to proceed ahead with this injection. documented in this encounter Plan of Treatment Not on file documented as of this encounter Visit Diagnoses Diagnosis Right shoulder pain- Primary Pain in joint, shoulder region documented in this encounter Care Teams Chief Juvenile Probation Officer Relationship Specialty Start Date End Date Jim Wei MD [address] [place] [address] PCP - General 07/23/10 10/08/15 [facility] [address] [address] [place] [address] Adult ManagerCustomer Care Associate Medicine 03/26/11 documented as of this encounter
--- OUTSIDE RECORDS SUMMARY | 2024-05-27 02:35 | XMS_ITS | Encounter Summary ---
[place] [address] Care Team Providers Care Logistics Team Lead Name Role Phone Jim Wei MD Primary Care Provider [phone] Reason for Visit * Reason Onset Date Comments Post Procedure Call 06/19/2011 Encounter Details Date Type Department Care Team (Late st Contact Info) Description 06/19/2011 Telephone [place] [phone] Katelyn Quinn RN Post Procedure Call Social History Tobacco Use Types Packs/Day Years Used Date Smoking Tobacco: Never Alcohol Use Standard Drinks/Week Comments Yes 0 (1 standard drink = 0.6 oz pur e alcohol) occasional Sex and Gender Information Value Date Recorded Sex Assigned at Not on file Gender Identity Not on file Sexual Orientation Not on file documented as of this encounter Miscellaneous Notes * Telephone Encounter - Katelyn Quinn RN - 06/19/2011 3:03 PM EDT Pain Management Center Post-Procedure Phone Note Patient: Barbi Ivey [id number] Post-procedure phone call from patient to report she response to the u/s guided anterior scalene trigger point injection procedure performed on 06/16/2011 in the Pain Management Center by Nacho Almonte MD. Patient reports that after the procedure she experienced: _x_ Pain relief that reduced pain from pre-procedure level of 6/10 to post- procedure level of 6/10 1 hour - 7/10 2 hour - 6/10 3 hour - 7/10 4 hour - 7/10 Based on the information provided above and after discussion with the patient, the following actions will be taken: Per Dr. Almonte - Barbi will follow up in the office with Dr. Almonte in approximately 3 weeks. Barbi has an appointment scheduled for 07/02/2011. Patient has the appropriate phone number and understands that she may contact the Pain Management Center at any time with questions or concerns. Katelyn Quinn RN documented in this encounter Plan of Treatment Not on file documented as of this encounter Visit Diagnoses Not on filedocumented in this encounter Care Teams Logistics Team Lead Relationship Specialty Start Date End Date Jim Wei MD [address] [place] [address] PCP - General 07/23/10 10/08/15 [facility] [address] [address] [place] [address] Metal MachinistBeef Trimmer Medicine 03/26/11 documented as of this encounter
--- OUTSIDE RECORDS SUMMARY | 2024-05-27 02:35 | XMS_ITS | Encounter Summary ---
[place] [address] Care Team Providers Care Print Color Matcher Name Role Phone Jim Wei MD Primary Care Provider [phone] Encounter Details Date Type Department Care Team (Late st Contact Info) Description 08/06/2011 [facility] [place] [id number] Benigno Montilla MD [facility] [place] [address] Social History Tobacco Use Types Packs/Day Years [...] on filedocumented in this encounter Care Teams Print Color Matcher Relationship Specialty Start Date End Date Jim Wei MD [address] [place] [address] PCP - General 07/23/10 10/08/[address] [facility] [address] [address] [place] [address] Server ProgrammerFront End Software Developer Medicine 03/26/11 documented as of this encounter
--- OUTSIDE RECORDS SUMMARY | 2024-05-27 02:35 | XMS_ITS | Encounter Summary ---
Author Organization Counts Include [facility] Address [facility] [address] [place] [address] Care Team Providers Care Salesperson Parts Name Role Phone Jim Wei MD Primary Care Provider [phone] Encounter Details Date Type Department Care Team (Latest Contact Info) Description 03/23/2013 7:43 AM EDT - 03/23/2013 11:59 PM EDT Hospital [place] [address] Matthew Melvin MD [facility] [place] [address] Hypokalemia Discharge Disposition: Home Social History Tobacco Use [...] Procedure Name Priority Date/Time Associated Diagnosis Comments ALDOSTERONE Routine 03/23/2013 8:05 AM EDT Hypokalemia RENIN ACTIVITY Routine 03/23/2013 8:05 AM EDT Hypokalemia documented in this encounter Results * (ABNORMAL) Aldosterone (03/23/2013 8:05 AM EDT) Pathologist [facility] Aldosterone (DECEMBER) 22(H) <=21 ng/dL [facility] Comment: Reference range based on upright A.M. collection from subjects on ad lewis sodium uptake. Test Performed by: [place] [address] Cement Tester Assistant: Charles Zimmerman III, M.D. Blood specimen (specimen) 03/23/2013 8:05 AM EDT 03/23/2013 9:08 AM EDT Narrative Resulting Agency Comment Spec In Lab Matthew Melvin MD LAB SEND OUT PAIGE KUMAR [facility] Organization Address City/State/ZIP Co de Phone Number [facility] * Renin Activity (03/23/2013 8:05 AM EDT) [facility] Renin Activity (DECEMBER) 3.6 ng/ml/hr [facility] Comment: -- REFERENCE VALUE -- (Peripheral vein specimen) Na-deplete, upright: ??Mean: 10.8 ??Range: 2.9-24 Na-replete, upright: ??Mean: 1.9 ??Range: <=0.6-4.3 Test Performed by: [address] [address] Cement Tester Assistant: Charles R. Cockerill, III, M.D. Blood specimen (specimen) 03/23/2013 8:05 AM EDT 03/23/2013 9:08 AM EDT Narrative Resulting Agency Comment Spec In Lab Matthew Melvin MD LAB SEND OUT PAIGE KUMAR Performing Organization Address City/State/[facility] Co va Phone Number [facility] documented in this encounter Visit Diagnoses Diagnosis Hypokalemia Hypopotassemia documented in this encounter Care Teams Salesperson Parts Relationship Specialty Start Date End Date Jim Wei MD [address] [place] [address] PCP - General 07/23/10 10/08/15 [facility] [address] [address] [place] [address] Inside Sales Territory ManagerMelter Supervisor Oxygen Furnace Medicine 03/26/11 documented as of this encounter
--- OUTSIDE RECORDS SUMMARY | 2024-05-27 02:35 | XMS_ITS | Encounter Summary ---
Author Organization [facility] Address [facility] Marib[address] mu[address] [address] Care Team Providers Care Wedger And Gluer Name Role Phone Jim Wei MD Primary Care Provider [phone] Encounter Details Date Type Department Care Team (Late st Contact Info) Description 09/08/2012 [place] [id number] Emeka Hernandez Jr., MD [facility] [place] [address] Calculus of kidney (Primary Dx) Social History Tobacco Use Types Packs/Day Years [...] Results * (ABNORMAL) Basic Metabolic Panel (non-fasting) (09/08/2012 3:24 PM EST) Glucose 85 60 - 199 mg/dL [facility] Comment:Diabetes: >=200 mg/d L plus symptoms Blood Urea Nitrogen 10 8 - 18 mg/dL [facility] Creatinine 0.71 0.70 - 1.20 mg/dL [facility] Comment: Please note that the pediatric reference intervals supplied above were not validated at [facility]. Results from pediatric patients should be interpreted in conjunction to the patient's age, height and muscle mass. Sodium 140 135 - 145 mmol/L [facility] Potassium 3.0(Criti dalia) 3.5 - 5.0 mmol/L [facility] Comment: Result rechecked. Called by: OLEG, Read back by: Mary Vásquez, Date/Time:09/08/12 16:34. Please note: ??Patients with WBC >100,000 may have falsely elevated Potassium levels. ??For accurate Potassium quantification in these patients send serum separator tube (gold top) for subsequent determinations. ??Contact the Clinical Chemistry Laboratory if there are any questions. Chloride 100 98 - 107 mmol/L [facility] Carbon Dioxide 28 22 - 31 mmol/L [facility]EN[facility] Anion Gap 12 5 - 15 mmol/L [facility] Calcium 9.2 8.5 - 10.5 mg/dL [facility]ILLENNIUM Est [...] J Am Soc Nephrol;6:1963-72. Blood specimen (specimen) 09/08/2012 3:24 PM EST 09/08/2012 3:28 PM EST Narrative Resulting Agency Comment Spec In Lab Emeka Hernandez Jr., MD CHEMISTRY ORDERABL ES Performing Organization Address City/State/ZIP Co tn Phone Number [facility] documented in this encounter Visit Diagnoses Diagnosis Calculus of kidney- Primary documented in this encounter Care Teams Wedger And Gluer Relationship Specialty Start Date End Date Jim Wei MD [address] [place] [address] PCP - General 07/23/10 10/08/15 [facility] [address] [address] [place] [address] [employer] Equipment OperatorCommander Internal Affairs Medicine 03/26/11 documented as of this encounter
--- OUTSIDE RECORDS SUMMARY | 2024-05-27 02:35 | XMS_ITS | Encounter Summary ---
Author Organization [facility] Address [facility] Maribeth mu[address] [address] Care Team Providers Care Behavioral Therapy Coordinator Name Role Phone Jim Wei MD Primary Care Provider [phone] Reason for Visit * Reason Comments Nephrolithiasis Encounter Details Date Type Department Care Team (Late st Contact Info) Description 10/11/2013 2:20 PM EST [place] [address] Sowmya Ingram Jr., MD [facility] [place] [address] Urolithiasis (Primary Dx) Discharge Disposition: Home Social History [...] Sign Reading Time Taken Comments Blood Pressure 129/92 10/11/2013 2:38 PM EST Pulse 108 10/11/2013 2:38 PM EST Temperature - - Respiratory Rate 18 10/11/2013 2:38 PM EST Oxygen Saturation - - Inhaled Oxygen Concentration - - Weight 79.4 kg (175 lb) 10/11/2013 2:38 PM EST Height 162.6 cm (5' 4) 10/11/2013 2:38 PM EST Body Mass Index 30.04 10/11/2013 2:38 PM EST documented in this encounter Progress Notes * Sowmya Ingram Jr., MD - 10/11/2013 3:15 PM EST HPI: Ms. Ivey is a very pleasant 37 year old woman who returns for evaluation regarding nephrolithiasis, as well as history of right sided flank pain of unclear etiology. At her prior visit, CT was obtained, confirming no evidence of right sided stones (Two non-obstructing left renal stones again noted). Trace possible right pelviectasis was suggested, prompting IVP to assess for any sign of obstruction. IVP was normal, without sign of any abnormality on right. Her right sided pain has fully resolved and has not recurred. [...] then considered not likely after labwork returned. Finally, in the interval since her last visit, she was started on topamax for migraine headaches. Review of Systems Constitution: Negative for fever. [...] appears well- developed and well-nourished. No distress. Pulmonary/Chest: Effort normal. Abdominal: Soft. She exhibits no distension. There is no tenderness. There is no rebound and no guarding. Genitourinary: No CVA tenderness to percussion bilaterally Neurological: She is alert and oriented to person, place, and time. Skin: She is not diaphoretic. Psychiatric: She has a normal mood and affect. Her behavior is normal. Imaging studies: I independently reviewed her IVP and CT from 07/20/13, with findings as noted above Laboratory studies: 24 hour urine: 02/09/13; 09/15/12 [...] 0.03 (normal at 0.17, 0.48 and 0.24) Serum Chemistry Studies: (07/14/13 -- [facility]) serum Ca--8.5; potassium 3.5 Impression/Plan: 1)Urolithiasis -- No interval renal colic. Plan reimaging at next visit in 3-4 months 2) Hypercalciuric borderline hypocitraturic urolithiasis. Plan repeat 24h urine. We discussed that topamax may deplete citrate and raise urine pH, thus may exacerbate her stone proclivity. For now she would like to continue it, will await repeat 24 h urine to assess effects of topamax. She will follow up in metabolic stone clinic Spring 2013. I have ordered a renal u/s and a bmp for that visit. documented in this encounter Plan of Treatment Not on file documented as of this encounter Results * US retroperitoneal complete (01/11/2014 1:20 PM EDT) Anatomical Region Laterality Modality Abdomen Ultrasound 01/11/2014 1:20 PM EDT Narrative 01/11/2014 1:58 PM EDT ? Renal ? (Signed Final 01/11/2014 01:57 pm) Patient Info ID: ? [id number] ? : ??[birth year] (38 yrs) Name: ? BARBI IVEY ? Visit Date: 01/11/2014 01:20 pm Performed By Performed By: ?Rashel MARRUFO, Pam Associate: ? Goodman MILNER, Mahad Attending: ? Jennifer MILNER, Alvarado Ruth Referred By: ? SOWMYA INGRAM MD Service(s) Provided URETRO - Retroperitoneal Complete - [id number] ? [id number] Indications History of kidney stones Comparison CT Abdomen and Pelvis: 07/20/2013 Right Kidney Size (cm) ?L: ??11.1 Cortical Thickness: ?Normal Cortical Echogenicity: ?? Normal Hydronephrosis: ?No sonographic evidence Left Kidney Size (cm) ?L: ??11.1 Cortical Thickness: ?Normal Cortical Echogenicity: ?? Normal Hydronephrosis: ?No sonographic evidence Urinary Bladder Pre-void (cm) ? L: ??4.7 ? AP: ??4.6 ? TV: ??8 Vol (ml): ?90.6 Comment: ?Partially distended, normal contour Impression Ultrasound - ??Retroperitoneal Complete - Summary Normal renal and bladder ultrasound. ??No renal calculus seen. I ??viewed the images and agree with the above interpretation. Thank you for allowing us to participate in the care of BARBI IVEY. Please do not hesitate to call if you have any questions. ? Alvarado Rodriguez MD Electronically Signed Final Report ?? 01/11/2014 01:57 pm Film and interpretation reviewed by the attending Procedure Note Alvarado Rodriguez MD - 01/11/2014 Renal (Signed Final 01/11/2014 01:57 pm) Patient Info ID: [id number] : [birth year] (38 yrs) Name: BARBI IVEY Visit Date: 01/11/2014 01:20 pm Performed By Performed By: Pam Kiser RDMS Associate: Mahad Judge MD Attending: Alvarado Rodriguez MD Referred By: SOWMYA INGRAM MD Service(s) Provided URETRO - Retroperitoneal Complete - [id number] Indications History of kidney stones Comparison CT Abdomen and Pelvis: 07/20/2013 Right Kidney Size (cm) L: 11.1 Cortical Thickness: Normal Cortical Echogenicity: Normal Hydronephrosis: No sonographic evidence Left Kidney Size (cm) L: 11.1 Cortical Thickness: Normal Cortical Echogenicity: Normal Hydronephrosis: No sonographic evidence Urinary Bladder Pre-void (cm) L: 4.7 AP: 4.6 TV: 8 Vol (ml): 90.6 Comment: Partially distended, normal contour Impression Ultrasound - Retroperitoneal Complete - Summary Normal renal and bladder ultrasound. No renal calculus seen. I viewed the images and agree with the above interpretation. Thank you for allowing us to participate in the care of BARBI IVEY. Please do not hesitate to call if you have any questions. Alvarado Rodriguez MD Electronically Signed Final Report 01/11/2014 01:57 pm Film and interpretation reviewed by the attending Sowmya Ingram Jr., MD IMG US GEN ORDERAB LES * (ABNORMAL) Basic Metabolic Panel (non-fasting) (01/11/2014 12:48 PM EDT) Glucose 97 60 - 199 mg/dL [facility] Comment:Diabetes: >=200 mg/d L plus symptoms Blood Urea Nitrogen 11 8 - 18 mg/dL [facility] Creatinine 0.79 0.70 - 1.20 mg/dL [facility] Comment: Please note that the pediatric reference intervals supplied above were not validated at [facility]. Results from pediatric patients should be interpreted in conjunction to the patient's age, height and muscle mass. Sodium 141 135 - 145 mmol/L [facility]ILLENNI[facility] Potassium 3.1(L) 3.5 - 5.0 mmol/L [facility] Comment: Please note: ??Patients with WBC >100,000 may have falsely elevated Potassium levels. ??For accurate Potassium quantification in these patients send serum separator tube (gold top) for subsequent determinations. ??Contact the Clinical Chemistry Laboratory if there are any questions. Chloride 104 98 - 107 mmol/L [facility] MILLENNIUM Carbon Dioxide 21(L) 22 - 31 mmol/L [facility]ILLENNI[facility] Anion Gap 16(H) 5 - 15 mmol/L [facility]ILL[facility] Calcium [...] the following links into your internet browser. http://www.nkdep.nih.gov/lab-evaluation.shtml http://www.kidney.org/professionals/ Blood specimen (specimen) 01/11/2014 12:48 PM EDT 01/11/2014 12:52 PM EDT Narrative Resulting Agency Comment Spec In Lab Sowmya Ingram Jr., MD CHEMISTRY ORDERABL ES [facility] documented in this encounter Visit Diagnoses Diagnosis Urolithiasis- Primary Urinary calculus, unspecified Urolithiasis Urinary calculus, unspecified documented in this encounter Care Teams Behavioral Therapy Coordinator Relationship Specialty Start Date End Date Jim Wei MD [address] [place] [address] PCP - General 07/23/10 10/08/15 [facility] [address] [address] [place] [address] Labor MediatorAlmond Huller Medicine 03/26/11 documented as of this encounter
--- OUTSIDE RECORDS SUMMARY | 2024-05-27 02:35 | XMS_ITS | Encounter Summary ---
Author Organization [facility] [place] [address] Care Team Providers Care Warp Doffer Name Role Phone Jim Wei MD Primary Care Provider [phone] Encounter Details Date Type Department Care Team (Late st Contact Info) Description 01/11/2014 12:57 PM EDT - 01/11/2014 11:59 PM EDT Hospital [place] [address] Urolithiasis Social History Tobacco Use Types Packs/Day [...] mg tablet Take by mouth as needed. topiramate (TOPAMAX) 25 mg tablet Take 50 mg by mouth 2 times daily. 01/10/2015 amiloride (MIDAMOR) 5 mg tabletIndications:Nephro lithiasis,Hypokalemia Take 1 tablet by mouth daily. 90 tablet 3 03/16/2013 04/09/2016 hydrochlorothiazide (HYDRODIURIL) 12.5 mg tablet 12.5 MG = 1 Tablet(s), PO, Twice daily 04/18/2010 10/09/2015 documented as of this encounter Plan of Treatment Not on file documented as of this encounter Procedures Procedure Name Priority Date/Time Associated Diagnosis Comments US RETROPERITONEAL COMPLETE Routine 01/11/2014 1:20 PM EDT Urolithiasis documented in this encounter Results * US retroperitoneal complete (01/11/2014 1:20 PM EDT) Anatomical Region Laterality Modality Abdomen Ultrasound 01/11/2014 1:20 PM EDT Narrative 01/11/2014 1:58 PM EDT ? Renal ? (Signed Final 01/11/2014 01:57 pm) Patient Info ID: ? [id number] ? : ??[birth year] (38 yrs) Name: ? BARBI IVEY ? Visit Date: 01/11/2014 01:20 pm Performed By Performed By: ?Rashel MARRUFO, Pam Associate: ? Goodman MILNER, Mahad Attending: ? Jennifer MILNER, Alvarado Ruth Referred By: ? SOWMYA HERNANDEZ MD Service(s) Provided URETRO - Retroperitoneal Complete - [id number] ? [id number] Indications History of kidney stones Comparison CT [...] Final 01/11/2014 01:57 pm) Patient Info ID: [id number] : [birth year] (38 yrs) Name: BARBI IVEY Visit Date: 01/11/2014 01:20 pm Performed By Performed By: Pam Kiser RDMS Associate: Mahad Judge MD Attending: Alvarado Rodriguez MD Referred By: SOWMYA HERNANDEZ MD Service(s) Provided URETRO - Retroperitoneal Complete - [id number] Indications History of kidney stones Comparison CT [...] unspecified documented in this encounter Care Teams Warp Doffer Relationship Specialty Start Date End Date Jim Wei MD [address] [address] PCP - General 07/23/10 10/08/15 [facility] [address] [address] [place] [address] Eligibility WorkerCredit Specialist Medicine 03/26/11 documented as of this encounter
--- OUTSIDE RECORDS SUMMARY | 2024-05-27 02:35 | XMS_ITS | Encounter Summary ---
[place] [address] Care Team Providers Care Coal Chute Worker Name Role Phone Jim Wei MD Primary Care Provider [phone] Reason for Visit * Reason Onset Date Comments Post Procedure Call 06/17/2011 Encounter Details Date Type Department Care Team (Late st Contact Info) Description 06/17/2011 Telephone [place] [id number] Huyen Luis RN Post Procedure Call Social History Tobacco [...] encounter Miscellaneous Notes * Telephone Encounter - Huyen Luis RN - 06/17/2011 5:04 PM EDT I have attempted without success to contact this patient by phone to return their call regarding response to Ultrasound guided trigger point injection of anterior scalene muscle. documented in this encounter Plan of Treatment Not on file documented as of this encounter Visit Diagnoses Not on filedocumented in this encounter Care Teams Coal Chute Worker Relationship Specialty Start Date End Date Jim Wei MD [address] [place] [address] PCP - General 07/23/10 10/08/15 [facility] [address] [address] [place] [address] Backup Administrative CoordinatorSewer Builder Medicine 03/26/11 documented as of this encounter
--- OUTSIDE RECORDS SUMMARY | 2024-05-27 02:35 | XMS_ITS | Encounter Summary ---
Author Organization [facility] Address [facility] [address] [place] [address] Care Team Providers Care Shank Archer Name Role Phone Jim Wei MD Primary Care Provider [phone] Reason for Visit * Reason Comments Follow-up Encounter Details Date Type Department Care Team (Late st Contact Info) Description 09/08/2012 3:00 PM EST Follow-[place] [address] Sowmya Hernandez Jr., MD [facility] [place] [address] Calculus of kidney (Primary Dx) Discharge Disposition: Home Social History [...] Sign Reading Time Taken Comments Blood Pressure 136/94 09/08/2012 3:39 PM EST Pulse 88 09/08/2012 3:39 PM EST Temperature - - Respiratory Rate 20 09/08/2012 3:39 PM EST Oxygen Saturation 97% 09/08/2012 3:39 PM EST Inhaled Oxygen Concentration - - Weight 77.1 kg (170 lb) 09/08/2012 3:39 PM EST Height 162.6 cm (5' 4) 09/08/2012 3:39 PM EST Body Mass Index 29.18 09/08/2012 3:39 PM EST documented in this encounter Progress Notes * Lori Ro RD - 09/08/2012 4:33 PM EST Met with this pt to discuss diet as it relates to the prevention of kidney stone formation. Diet Recall: -glass of water with medications first thing in the morning and 1-2 cups coffee with 1/2 and 1/2 B: onion bagel with cream cheese OR white toast with PB -glass of water L: tuna sandwich with beltrán and celery on white bread with either some chips on the side or some soup - canned or homemade S: cheese stick D: Fish, Lean Beef, Chicken with noodles made with olive oil from scratch, white rice or potato, vegetable choices are often beets or broccoli - water or red wine S: popcorn or fruit, sometimes ice cream or brownies. Interview: Pt states has been out of work for 3 years so he is home more and they snack a lot together. Also, due to financial constraints they grow their own vegetables then freeze, jar or pickle to last through the winter. Pt has identified that he feel lactose intolerant and milk goes right through her however she is ok with yogurt, cottage cheese and hard cheese. Pt also states like nuts a lotand chocolate covered almonds. Intervention: 1. Plan to have 3 servings of calcium rich foods throughout the day. One serving with each meal. 2. Plan to reduce high oxalate foods. Plan: 1. Pt is willing to have one calcium rich food choice at meal to meet RDI for Calcium intake. Choices are yogurt, cottage cheese and hard cheese. 2. Pt has been given a new handout of foods and their oxalate content. She will post on her refrigerator and is confident that she just needs to get refocused. -This pt has the knowledge and knows what she needs to do. I am confident that this interview will help to re-focus her on her diet intake and she will be successful. Lori Mcnair. Jayjay SHARMA LD * Sowmya Hernandez Jr., MD - 09/08/2012 4:32 PM EST HPI: Ms. Ivey is a very pleasant 36 [...] and she has been tolerating this well. Since her last visit, for the last month she has noted right flank pain, 7-8/10 in severity, worse at night, alleviated by applying pressure to it. She notes associated nausea, looser BM. Review of Systems Constitution: Negative for fever. Gastrointestinal: Positive for nausea. Genitourinary: Positive for flank pain. Negative for hematuria. Past medical history: HTN, urolithiasis. Past [...] Oral Twice daily Potassium Chloride 10meq bid Physical Exam [vitalsreviewed. Constitutional: She is oriented to person, place, and time. She appears well- developed and well-nourished. No distress. HENT: Head: Normocephalic and atraumatic. Cardiovascular: Normal rate and regular rhythm. Pulmonary/Chest: Effort normal. No respiratory distress. She has no wheezes. She has no rales. Abdominal: Soft. She exhibits no distension and no mass. There is tenderness (scant R mid tendernss). There is no rebound and no guarding. Genitourinary: Scant right cva tenderness to percussion Musculoskeletal: She exhibits no edema. Neurological: She is alert and oriented to person, place, and time. Skin: Skin is warm and dry. She is not diaphoretic. Psychiatric: She has a normal mood and affect. Her behavior is normal. Imaging studies: I independently reviewed the renal ultrasound from today. This reveals no evidenceof hydronephrosis, hydroureter, or new stones. Laboratory studies: 24 hour urine: 01/29/12 (prior [...] 0.03 (normal at 0.17, 0.48 and 0.24) BMP Results for CECILE IVEY ( ) as of 09/08/2012 18:46 Ref. Range 09/08/2012 15:24 Sodium Latest Range: 135-145 mmol/L 140 Potassium Latest Range: 3.5-5.0 mmol/L 3.0 (CRIT) Chloride Latest Range: 98-107 mmol/L 100 CO2 Latest Range: 22-31 mmol/L 28 Anion Gap Latest Range: 5-15 mmol/L 12 BUN Latest Range: 8-18 mg/dL 10 Creatinine Latest Range: 0.70-1.20 mg/dL 0.71 Estimated GFR Latest Range: >=60 >60 Glucose Lvl Latest Range: 60-199 mg/dL 85 Calcium Latest Range: 8.5-10.5 mg/dL 9.2 Impression/Plan: 1)Urolithiasis -- hypercalciuric borderline hypocitraturic urolithiasis. - BMP today notable for hypokalemia. We discussed means to supplement potassium, including diet andRx. As prior, would not further increase potassium citrate as her urine pH should not be pushed anyhigher. She agrees with increasing KCl Rx. -She will double her current KCl to 20 meq bid -She will return to see me in 6months with repeat bmp and renal u/s. 2)Given right flank pain but absence of hydro on u/s and absence of hematuria on u/a today, we discussed possibility that pain is non- tract vs possibility of small ureteral stone that is not currently obstructing. She is concerned about the latter and requests CT, understanding that it may be negative. After discussing pros/cons/risks, she would like to proceed with CT and I have ordered it. If no obvious source is noted, she will see her PCP to investigate other sources of her pain. ADDENDUM: I have independently reviewed CT-- no evidence of right sided hydronephrosis, hydroureter, or urinary tract stones. Small nonobstructing 2-3 mm left renal stone noted. I called her at home and cell; left message reviewing this documented in this encounter Plan of Treatment Not on file documented as of this encounter Procedures Procedure Name Priority Date/Time Associated Diagnosis Comments BASIC METABOLIC PANEL STAT 09/08/2012 3:24 PM EST Calculus of kidney documented in this encounter Results * Basic Metabolic Panel (non-fasting) (07/20/2013 12:55 PM EST) Glucose 92 60 - 199 mg/dL CERNER MILLENNIUM Comment:Diabetes: >=200 mg/d L plus symptoms Blood Urea Nitrogen 12 8 - 18 mg/dL CERNER MILLENNIUM Creatinine 0.70 0.70 - 1.20 mg/dL CERNER MILLENNIUM Comment: Please note that the pediatric reference intervals supplied above were not validated at [facility]. Results from pediatric patients should be interpreted in conjunction to the patient's age, height and muscle mass. Sodium 136 135 - 145 mmol/L CERNER MILLENNIUM Potassium 3.5 3.5 - 5.0 mmol/L CERNER MILLENNIUM Comment: Please note: ??Patients with WBC >100,000 may have falsely elevated Potassium levels. ??For accurate Potassium quantification in these patients send serum separator tube (gold top) for subsequent determinations. ??Contact the Clinical Chemistry Laboratory if there are any questions. Chloride 101 98 - 107 mmol/L CERNER MILLENNIUM Carbon Dioxide 24 22 - 31 mmol/L CERNER MILLENNIUM Anion Gap 11 5 - 15 mmol/L CERNER MILLENNIUM Calcium 9.1 8.5 - 10.5 mg/dL CERNER MILLENNIUM Est [...] internet browser. http://www.nkdep.nih.gov/lab-evaluation.shtml http://www.kidney.org/professionals/ Blood specimen (specimen) 07/20/2013 12:55 PM EST 07/20/2013 1:02 PM EST Narrative Resulting Agency Comment Spec In Lab Sowmya Hernandez Jr., MD CHEMISTRY ORDERABL ES CERINES MILLENNIUM * US retroperitoneal complete (03/16/2013 10:55 AM EDT) Anatomical Region Laterality Modality Abdomen Ultrasound 03/16/2013 10:5 5 AM EDT Narrative 03/16/2013 11:16 AM EDT ? Renal ? (Signed Final 03/16/2013 11:16 am) Patient Info ID: ? [id number] ? : ??[birth year] (37 yrs) Name: ? CECILE IVEY ? Visit Date: 03/16/2013 10:53 am Performed By Performed By: ?Maryam [facility], ??Patrizia Associate: ? Abhinav MILNER, Peter Mathew Attending: ? Johana MILNER, Arlen Ruth Referred By: ? SOWMYA HERNANDEZ MD Service(s) Provided URETRO - Retroperitoneal Complete - [id number] ? [id number] Indications History of kidney stones Comparison CT [...] Final 03/16/2013 11:16 am) Patient Info ID: [id number] : [birth year] (37 yrs) Name: CECILE IVEY Visit Date: 03/16/2013 10:53 am Performed By Performed By: Patrizia Francisco RDMS Associate: Peter La MD Attending: Arlen Vaughn MD Referred By: SOWMYA HERNANDEZ MD Service(s) Provided URETRO - Retroperitoneal Complete - [id number] Indications History of kidney stones Comparison CT [...] MD IMG US GEN ORDERAB LES * CT abdomen & pelvis WO contrast (09/08/2012 5:05 PM EST) Anatomical Region Laterality Modality Abdomen, Pelvis Computed Tomogra phy 09/08/2012 5:05 PM EST Narrative 09/08/2012 6:[address] Abdomen / Pelvis Without Contrast Clinical History Please evaluate for kidney stone--right flank pain Comparison None. Technique Noncontrast scans of the abdomen and pelvis. Findings There is a 4 mm calculus in the left kidney, interpolar region. ??No hydronephrosis or ureterectasis. ??No distal ureteral or bladder calculi noted. ?? Premenopausal uterus present. ??No lymphadenopathy or perinephric stranding. ?? Lung bases appear clear. Impression A tiny 4 mm left renal calculus, otherwise normal noncontrast CT. Procedure Note Meet Rojas MD - 09/08/[address] Abdomen / Pelvis Without Contrast Clinical History Please evaluate for kidney stone--right flank pain Comparison None. Technique Noncontrast scans of the abdomen and pelvis. Findings There is a 4 mm calculus in the left kidney, interpolar region. No hydronephrosis or ureterectasis. No distal ureteral or bladder calculinoted. Premenopausal uterus present. No lymphadenopathy or perinephricstranding. Lung bases appear clear. Impression A tiny 4 mm left renal calculus, otherwise normal noncontrast CT. Sowmya Hernandez Jr., MD IMG CT ORDERABLES * (ABNORMAL) Basic Metabolic Panel (non-fasting) (09/08/2012 3:24 PM EST) [facility] Glucose 85 60 - 199 mg/dL CERNER MILLENNIUM Comment:Diabetes: >=200 mg/d L plus symptoms Blood Urea Nitrogen 10 8 - 18 mg/dL CERNER MILLENNIUM Creatinine 0.71 0.70 - 1.20 mg/dL CERNER MILLENNIUM Comment: Please note that the pediatric reference intervals supplied above were not validated at [facility]. Results from pediatric patients should be interpreted [...] Resulting Agency Comment Spec In Lab Sowmya Hernandez Jr., MD CHEMISTRY ORDERABL ES Performing Organization Address City/State/[facility] Co tn Phone Number [facility] documented in this encounter Visit Diagnoses Diagnosis Calculus of kidney- Primary Calculus of kidney Calculus of kidney documented in this encounter Care Teams Shank Archer Relationship Specialty Start Date End Date Jim Wei MD [address] [place] [address] PCP - General 07/23/10 10/08/15 [facility] [address] [address] [place] [address] JtacIndustrial Safety Engineer Medicine 03/26/11 documented as of this encounter
--- OUTSIDE RECORDS SUMMARY | 2024-05-27 02:35 | XMS_ITS | Encounter Summary ---
Author Organization [facility] Address [facility] [address] [place] [address] Care Team Providers Care Laundrette Owner Name Role Phone Jim Wei MD Primary Care Provider [phone] Encounter Details Date Type Department Care Team (Late st Contact Info) Description 09/08/2012 3:30 [place] [address] Matthew Melvin MD [facility] [place] [address] Hypokalemia (Primary Dx) Social History Tobacco Use Types [...] Progress Notes * Matthew Melvin MD - 09/08/2012 3:27 PM EST Nephrology/Hypertension Clinic Follow-up Note [id number] ID: 36 y.o.year-old female for follow up of nephrolithiasis. Past Medical History: Nephrolithiasis Hypertension Current Outpatient Prescriptions on File Prior to Visit Medication Sig Dispense Refill ??? potassium chloride (K-DUR/KLOR-CON) 20 mEq extended release tablet Take 20 mEq by mouth 2 timesdaily. ??? Potassium Citrate (UROCIT) 10 mEq TbSR Take 10 mEq by mouth daily. ??? venlafaxine (EFFEXOR-XR) 37.5 mg 24 hr capsule Take 37.5 mg by mouth daily. ??? SUMAtriptan (IMITREX) 50 mg tablet Take 50 mg by mouth as needed. ??? hydrochlorothiazide (HYDRODIURIL) 12.5 mg tablet 12.5 MG = 1 Tablet(s), PO, Twice daily The exact doses and frequency of each of the two potassium preparations is not clear. Allergies Allergen Reactions ??? Lisinopril Other (See Comments) hypotension ??? Penicillins Hives S: Metabolic evaluation in the past showed hypercalciuria, borderline normal urinary citrate, isolatedlow volume and hyperoxaluria. Stone analysis in 07/09 showed calcium phosphate 90%, calcium oxalatemonohydrate 10%. With dietary oxalate reduction, she had decreased urinary oxalate and calcium oxalate supersaturation. With dietary changes (low sodium, lower protein diet) and HCTZ, hypercalciuria also improved. KCl was added to her medications because of low serum potassium and high urine pH, rather than increasing potassium citrate. [facility] data show urinary calcium excretion to be on high side, with values of 225 mg (presumably before start of therapy), 192, 271, 149 and recent value of 1 21 mg/day. About one month ago, she noted right back/flank pain. It persisted and has worsened in the past fewdays. She says the pain is a sharp jab that radiates to upper abdomen but not to groin. She has hadnausea and has taken analgesics for pain. She has not had hematuria or dysuria but she has had someurgency with passing only small amounts of urine. No fever. She has had kidney infections, most recently last December. She thinks she has done well with drinkingwater but she has done less well with oxalate-containing foods. She had preeclampsia with her son about 10 years ago and has remained hypertensive; controlled on hydrochlorothiazide. Apparently, HCTZ was started in 2008. There are numerous reported low serum potassium levels, e.g., 2.3, 2.4 mmol/l in 2008, apparently before HCTZ was started? Review of Litholinkdata show urine potassium excretion varying from 33-86 mmol/day (44, 40, 33, 72 and 86 mmol/day; however, the serum potassium levels at these times are not available). She has not been evaluated as to cause of hypokalemia. A 10-point review of systems was otherwise negative. She can take hard cheeses and non-fat yoghurt but does not tolerate milk (it goes right through me). O: BP 136/94, P 88. Weight 170 lbs. BMI 29.2 General: WDWN woman in no distress Eye: EOMs intact ENT: Oropharynx benign Neck: No JVD CV: RRR. S1, S2 normal Resp: Lungs clear Back: +/- tenderness right flank Abd: Soft, non-tender Lymph: No cervical or submandibular adenopathy Ext: No pretibial edema Skin: No rash Neuro: ORTIZ. Gait normal Labs: Urine dipstick: pH 7, neg leukocytes, neg nitrite, neg protein, neg glucose, neg ketones, neg blood. Most recent 24 hour urine data ([facility], 01/29/12): volume 2 liters, calcium 121, oxalate 54, citrate 785, uric acid 465 mg; soidum 101 mmol; pH 7.27; SS CaOx 6.71, SS CaP 1.36, SS uric acid 0.03. PCR 0.8. Results for BARBI IVEY ( ) as of 09/09/2012 16:50 Ref. Range 09/08/2012 15:24 Sodium Latest Range: [...] 85 Calcium Latest Range: 8.5-10.5 mg/dL 9.2 URETRO - Retroperitoneal Complete - 09/08/12 Right Kidney Size (cm) L: 11.2 Cortical [...] Summary Normal renal and bladder ultrasound. No stones. Assessment: 1. Nephrolithiasis, calcium phosphate 90%, calcium oxalate dihydrate 10%, with risk factors hypercalciuria, hyperoxaluria, alkaline urine. SS CaOx has improved as has SS CaP though urine pH has increased; oxalate excretion has again increased. 2. History of hypertension and hypokalemia. Recommendations: 1. KCl dose increased. We need to confirm doses of KCl and potassium citrate with her. 2. Plasma aldosterone and renin activity. These can be obtained through Dr. Wei's office. I have spoken with Dr. Wei and have mailed the patient lab orders. I will contact the patient when I receive these results. 3. Repeat 24 hour urine through [facility] in 6 weeks. 4. Return in 3 months. CC: Jim Wei MD @[email or web address]@ documented in this encounter Plan of Treatment Not on file documented as of this encounter Visit Diagnoses Diagnosis Hypokalemia- Primary Hypopotassemia documented in this encounter Care Teams Laundrette Owner Relationship Specialty Start Date End Date Jim Wei MD [address] [place] [address] PCP - General 07/23/10 10/08/15 [facility] [address] [address] [place] [address] Edi Programmer Analyst[employer]ate Roller Medicine 03/26/11 documented as of this encounter
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
--- OUTSIDE RECORDS SUMMARY | 2024-05-27 02:35 | XMS_ITS | Encounter Summary ---
Author Organization [facility] Address [facility] [address] [place] [address] Care Team Providers Care Dump Motor Operator Name Role Phone Jim Wei MD Primary Care Provider [phone] Encounter Details Date Type Department Care Team (Late st Contact Info) Description 03/29/2013 Orders Only [place] [address] Matthew Melvin MD [facility] [place] [address] Hypokalemia (Primary Dx) Social History Tobacco Use [...] Hypopotassemia documented in this encounter Care Teams Dump Motor Operator Relationship Specialty Start Date End Date Jim Wei MD [address] [place], [place] [id number] PCP - General 07/23/10 10/08/15 [facility] [address] [address] [place] [address] Psychiatry Adult PhysicianClinical Research Specialist Medicine 03/26/11 documented as of this encounter
--- OUTSIDE RECORDS SUMMARY | 2024-05-27 02:35 | XMS_ITS | Encounter Summary ---
Author Organization [facility] Address [facility] [address] [place] [address] Care Team Providers Care Communication Electronic Technician Name Role Phone Jim Wei MD Primary Care Provider [phone] Reason for Visit * Reason Comments Nephrolithiasis Encounter Details Date Type Department Care Team (Late st Contact Info) Description 01/11/2014 2:00 PM EDT [place] [address] CLINIC, Sowmya Baez Jr., MD [facility] [place] [address] Urolithiasis (Primary Dx) Discharge Disposition: Home Social [...] Sign Reading Time Taken Comments Blood Pressure 132/86 01/11/2014 1:45 PM EDT Pulse 74 01/11/2014 1:45 PM EDT Temperature - - Respiratory Rate 16 01/11/2014 1:45 PM EDT Oxygen Saturation - - Inhaled Oxygen Concentration - - Weight 78 kg (172 lb) 01/11/2014 1:45 PM EDT Height 162.6 cm (5' 4) 01/11/2014 1:45 PM EDT Body Mass Index 29.52 01/11/2014 1:45 PM EDT documented in this encounter Progress Notes * Sowmya Ingram Jr., MD - 01/11/2014 2:18 PM EDT HPI: Ms. Ivey is a very pleasant 38 year old woman who returns for evaluation [...] migraine headaches. We discussed increased risk of stones and she opted to return with repeat imaging to assess for stone growth, as well as 24h urine. Review of Systems As above, otherwise unchanged since last visit of 10/11/13 Past medical history: HTN, urolithiasis. Past surgical history: right ureteroscopy. Family history: no fam hx of stones Social History: no tobacco, social EtOH. UROLOGIC MEDICATIONS: Hydrochlorothiazide 12.5 mg daily Amiloride 5mg daily Physical Exam Vitals reviewed. Constitutional: She is oriented to person, place, and time. She appears well- developed and well-nourished. No distress. HENT: Head: Normocephalic and atraumatic. Cardiovascular: Normal rate. Pulmonary/Chest: Effort normal. Abdominal: Soft. She exhibits no distension. There is no tenderness. There is no rebound. Genitourinary: No flank tenderness to percussion Neurological: She is alert and oriented to person, place, and time. Skin: She is not diaphoretic. Psychiatric: She has a normal mood and affect. Her behavior is normal. Imaging studies: I independently reviewed the renal ultrasound from today. This reveals no evidenceof hydronephrosis, hydroureter, or new stones. Laboratory studies: 24 hour urine: 02/09/13; 09/15/12 [...] Most recent 24h urine (12/21/13) scanned into [facility] -- notable for low urine volume (<2liters) and markedly decreased urinary citrate; calcium improved Impression/Plan: 1)Urolithiasis -- No interval renal colic. No evidence of current stones. We reviewed follow up plan -- will obtain repeat imaging in 6 months, sooner prn. Plan reimaging at next visit in 3-4 months 2) Hypercalciuric borderline hypocitraturic urolithiasis. Hypercalciuria now resolved. We discussedneed to increase hydration to 2-3 liters daily urine output. She has met with Dr Raphael who has recommended urocit k to maintain serum potassium and replete low citrate. He has also ordered follow up24h urine. She will follow up in metabolic stone clinic in 6 months. I have ordered a renal u/s chris bmp for that visit. documented in this encounter Plan of Treatment Not on file documented as of this encounter Procedures Procedure Name Priority Date/Time Associated Diagnosis Comments URINE CULTURE Routine 01/11/2014 5:44 PM EDT Urolithiasis BASIC METABOLIC PANEL STAT 01/11/2014 12:48 PM EDT Urolithiasis documented in this encounter Results * US retroperitoneal complete (07/12/2014 10:23 AM EST) Anatomical Region Laterality Modality Abdomen Ultrasound 07/12/2014 10:2 3 AM EST Narrative 07/12/2014 12:24 PM EST Renal ?(Signed Final 07/12/2014 12:24 ? pm) Patient Info ID #: ? [id number] ?: ??[birth year] (38 yrs) Name: ? BARBI IVEY ?Visit Date: 07/12/2014 10:21 am Performed By Performed By: ?George Singletary RDMS Associate: ? Reagan oGetz MD Attending: ? Johana MILNER, Arlen Ruth Referred By: ? SOWMYA INGRAM MD Service(s) Provided ??URETRO - Retroperitoneal Complete - [id number] ? [id number] Indications ??? new stones Comparison Renal/bladder ultrasound [...] 07/12/2014 12:24 pm) Patient Info ID #: [id number] : [id number] (38 yrs) Name: BARBI IVEY Visit Date: 07/12/2014 10:21 am Performed By Performed By: George Singletary RDMS Associate: Reagan Goetz MD Attending: Arlen Vaughn MD Referred By: SOWMYA INGRAM MD Service(s) Provided URETRO - Retroperitoneal Complete - [id number] Indications ? new stones Comparison Renal/bladder ultrasound [...] MD IMG US GEN ORDERAB LES * Urine culture Clean Catch Urine (01/11/2014 5:44 PM EDT) Urine Culture ? Patient Name: BARBI IVEY ? Ordered By: SOWMYA INGRAM JR ? MR#: [id number] ?LOC: ??5B ? /Sex: ??1975 (38 years), ? Female ? PROCEDURE: Urine Culture ?SOURCE: U CC ? COLLECTED: 01/11/2014 17:44 ? STARTED: 01/11/2014 17:44 ? FINAL REPORT ? Final Report ? Verified:2013 15:15 ? 1,000-9,000 cfu/ml Gram Positive organisms , probable contaminant ? CERNER MILLENNIUM Urine specimen obtained by clean catch procedure (specimen) 01/11/2014 5:44 PM EDT 01/11/2014 5:44 PM EDT Narrative Resulting Agency Comment Spec In Lab Sowmya Ingram Jr., MD MICROBIOLOGY - GEN ERAL ORDERABLES CERNER MILLENNIUM * (ABNORMAL) Basic Metabolic Panel (non-fasting) (01/11/2014 12:48 PM EDT) [facility] Glucose 97 60 - 199 mg/dL CERNER MILLENNIUM Comment:Diabetes: >=200 mg/d L plus symptoms Blood Urea Nitrogen 11 8 - 18 mg/dL CERNER MILLENNIUM Creatinine 0.79 0.70 - 1.20 mg/dL CERNER MILLENNIUM Comment: Please note that the pediatric reference intervals supplied above were not validated at [facility]. Results from pediatric patients should be interpreted [...] Sowmya Ingram Jr., MD CHEMISTRY ORDERABL ES [facility] documented in this encounter Visit Diagnoses Diagnosis Urolithiasis- Primary Urinary calculus, unspecified Urolithiasis Urinary calculus, unspecified documented in this encounter Care Teams Communication Electronic Technician Relationship Specialty Start Date End Date Jim Wei MD [address] [place] [address] PCP - General 07/23/10 10/08/15 [facility] [address] [address] [place] [address] Supervisor [employer] FabricationVideotape Operator Medicine 03/26/11 documented as of this encounter
--- OUTSIDE RECORDS SUMMARY | 2024-05-27 02:35 | XMS_ITS | Encounter Summary ---
[place] [address] Care Team Providers Care Audit Practice Intern Name Role Phone Jim Wei MD Primary Care Provider [phone] Encounter Details Date Type Department Care Team (Late st Contact Info) Description 07/21/2011 Notes [place] [address] Alisha Alcala RN Social History Tobacco Use Types Packs/Day Years Used Date Smoking Tobacco: Never Alcohol Use Standard Drinks/Week Comments Yes 0 (1 standard drink = 0.6 oz pur e alcohol) occasional Sex and Gender Information Value Date Recorded Sex Assigned at Not on file Gender Identity Not on file Sexual Orientation Not on file documented as of this encounter Progress Notes * Alisha Alcala RN - 07/21/2011 11:04 AM EST PA request faxed from Emile [facility]est[facility] for Cymbalta prescribed by Dr. Almonte for Ms. Ivey's shoulder pain. Unable to reach her envelope machine adjuster, Mr. Garcia, as the number was incorrect. Call placed to her director of casework services, Kylee Otoole, and she will call for the PA. She also gave me Mr. Garcia's correct number and I will contact Flory Simental to amend her note. documented in this encounter Plan of Treatment Not on file documented as of this encounter Visit Diagnoses Not on filedocumented in this encounter Care Teams Audit Practice Intern Relationship Specialty Start Date End Date Jim Wei MD [address] [place] [address] PCP - General 07/23/10 10/08/15 [facility] [address] [address] [place] [address] Waste Collection DriverLeather Stripping Machine Operator Medicine 03/26/11 documented as of this encounter
--- OUTSIDE RECORDS SUMMARY | 2024-05-27 02:35 | XMS_ITS | Encounter Summary ---
Author Organization [facility] Address [facility] [address] [place] [address] Care Team Providers Care Leather Coverer Name Role Phone Jim Wei MD Primary Care Provider [phone] Encounter Details Date Type Department Care Team (Latest Contact Info) Description 09/08/2012 4:55 PM EST - 09/08/2012 11:59 PM [facility] Hospital Encounter [place] [address] Emeka Hernandez Jr., MD [facility] [place] [address] Discharge Disposition: Home Social History Tobacco Use [...] Dispensed Refills Start Date End Date potassium chloride (K-DUR/KLOR-CON) 20 mEq extended release tablet Take 20 mEq by mouth 2 times daily. 03/16/2013 Potassium Citrate (UROCIT) 10 mEq TbSR Take 10 mEq by mouth daily. 03/16/2013 venlafaxine (EFFEXOR-XR) 37.5 mg 24 hr capsule Take 37.5 mg by mouth daily. 03/16/2013 SUMAtriptan (IMITREX) 50 mg tablet Take 50 mg by mouth as needed. 03/16/2013 hydrochlorothiazide (HYDRODIURIL) 12.5 mg tablet 12.5 MG = 1 Tablet(s), PO, Twice daily 04/18/2010 10/09/2015 documented as of this encounter Plan of Treatment Not on file documented as of this encounter Visit Diagnoses Not on filedocumented in this encounter Care Teams Leather Coverer Relationship Specialty Start Date End Date Jim Wei MD [address] [place] [address] PCP - General 07/23/10 10/08/15 [facility] [address] [address] [place] [address] Edi CoordinatorOrganic Preparation Analyst Medicine 03/26/11 documented as of this encounter
--- OUTSIDE RECORDS SUMMARY | 2024-05-27 02:35 | XMS_ITS | Encounter Summary ---
Author Organization [facility] [place] [address] Care Team Providers Care Design Printer Balloon Name Role Phone Jim Wei MD Primary Care Provider [phone] Encounter Details Date Type Department Care Team (Latest Contact Info) Description 09/08/2012 4:55 PM [facility] Hospital [place] [id number] Calculus of kidney Social History Tobacco Use [...] CT ABDOMEN AND PELVIS WO CONTRAST STAT 09/08/2012 5:05 PM EST Calculus of kidney documented in this encounter Results * CT [...] left renal calculus, otherwise normal noncontrast CT. Emeka Hernandez Jr., MD IMG CT ORDERABLES documented in this encounter Visit Diagnoses Diagnosis Calculus of kidney documented in this encounter Care Teams Design Printer Balloon Relationship Specialty Start Date End Date Jim Wei MD [address] [place] [address] PCP - General 07/23/10 10/08/15 [facility] [address] [address] [place] [address] Advertising CopywriterScout Executive Medicine 03/26/11 documented as of this encounter
--- OUTSIDE RECORDS SUMMARY | 2024-05-27 02:35 | XMS_ITS | Encounter Summary ---
Author Organization [facility] Address [facility] [place] [address] Care Team Providers Care Scholarship Counselor Name Role Phone Jim Wei MD Primary Care Provider [phone] Encounter Details Date Type Department Care Team (Latest Contact Info) Description 03/16/2012 9:22 AM EDT - 03/16/2012 11:59 PM EDT Hospital Encounter [place] [address] History of kidney stones Social History Tobacco Use Types Packs/Day Years [...] Refills Start Date End Date potassium chloride SA (K-DUR;KLOR-CON) 20 mEq tablet Take 1 tablet by mouth 2 times daily for 30 days. 60 tablet 11 03/16/2012 04/15/2012 venlafaxine (EFFEXOR-XR) 37.5 mg 24 hr capsule Take 37.5 mg by mouth daily. 03/16/2013 SUMAtriptan (IMITREX) 50 mg tablet Take 50 mg by mouth as needed. 03/16/2013 traMADol (ULTRAM) 50 mg tabletIndications:Right shoulder pain Take 1 tablet by mouth 2 times daily as needed for Pain. 60 tablet 1 09/05/2011 09/08/2012 hydrochlorothiazide (HYDRODIURIL) 12.5 mg tablet 12.5 MG = 1 Tablet(s), PO, Twice daily 04/18/2010 10/09/2015 documented as of this encounter Plan of Treatment Not on file documented as of this encounter Procedures Procedure Name Priority Date/Time Associated Diagnosis Comments US RETROPERITONEAL COMPLETE Routine 03/16/2012 11:50 AM EDT History of kidney stones documented in this encounter Results * US retroperitoneal complete (03/16/2012 11:50 AM EDT) Anatomical Region Laterality Modality Abdomen Ultrasound 03/16/2012 11:5 0 AM EDT Narrative 03/17/2012 9:31 AM EDT ? Renal ? (Signed Final 03/16/2012 12:06 pm) Patient Info ID: ? [id number] ? : ??[birth year] (36 yrs) Name: ? BARBI IVEY ? Visit Date: 03/16/2012 11:56 am Performed By Performed By: ?Chantale Jack RDMS Attending: ? Bob MILNER, Meet Lundy Referred By: ? SOWMYA HERNANDEZ MD Service(s) Provided URETRO - Retroperitoneal Complete - [id number] ? [id number] Indications ? stones, ?hydro Right Kidney Size (cm) ?L: ??10.5 Cortical Thickness: ?Normal Cortical Echogenicity: ?? Normal Hydronephrosis: ?No sonographic evidence Left Kidney Size (cm) ?L: ??10.2 Cortical Thickness: ?Normal Cortical Echogenicity: ?? Normal Hydronephrosis: ?No sonographic evidence Urinary Bladder Pre-void (cm) ? L: ??1.9 ? AP: ??3.9 ? TV: ??5.7 Vol (ml): ?22.1 Comment: ?Partially distended, normal contour Impression Ultrasound - ??Retroperitoneal Complete - Summary Normal renal and bladder ultrasound. No stones seen. I ??viewed the images and agree with the above interpretation. Thank you for allowing us to participate in the care of BARBI IVEY. Please do not hesitate to call if you have any questions. ? Meet Rojas MD Electronically Signed Final Report ?? 03/16/2012 12:06 pm Procedure Note Meet Rojas MD - 03/17/2012 Renal (Signed Final 03/16/2012 12:06 pm) Patient Info ID: [id number] : [birth year] (36 yrs) Name: BARBI IVEY Visit Date: 03/16/2012 11:56 am Performed By Performed By: Chantale Jack [facility] Attending: Meet Rojas MD Referred By: SOWMYA HERNANDEZ MD Service(s) Provided URETRO - Retroperitoneal Complete - [id number] Indications ? stones, ?hydro Right Kidney Size (cm) L: 10.5 Cortical Thickness: Normal Cortical Echogenicity: Normal Hydronephrosis: No sonographic evidence Left Kidney Size (cm) L: 10.2 Cortical Thickness: Normal Cortical Echogenicity: Normal Hydronephrosis: No sonographic evidence Urinary Bladder Pre-void (cm) L: 1.9 AP: 3.9 TV: 5.7 Vol (ml): 22.1 Comment: Partially distended, normal contour Impression Ultrasound - Retroperitoneal Complete - Summary Normal renal and bladder ultrasound. No stones seen. I viewed the images and agree with the above interpretation. Thank you for allowing us to participate in the care of BARBI IVEY. Please do not hesitate to call if you have any questions. Meet Rojas MD Electronically Signed Final Report 03/16/2012 12:06 pm Sowmya Hernandez Jr., MD IM US GEN ORDERAB LES documented in this encounter Visit Diagnoses Diagnosis History of kidney stones Personal history of urinary calculi documented in this encounter Care Teams Scholarship Counselor Relationship Specialty Start Date End Date Jim Wei MD [address] [place] [address] PCP - General 07/23/10 10/08/15 [facility] [address] [address] [place] [address] Dry Charge Process AttendantAcid Adjuster Medicine 03/26/11 documented as of this encounter
--- OUTSIDE RECORDS SUMMARY | 2024-05-27 02:35 | XMS_ITS | Encounter Summary ---
Author Organization [facility] Address [facility] [address] [place] [address] Care Team Providers Care Linux Admin Engineer Name Role Phone Belem Mike MD Primary Care Provider [phone] Reason for Visit * Reason Comments Nephrolithiasis Encounter Details Date Type Department Care Team (Latest Contact Info) Description 03/16/2013 11:00 AM EDT [place] [address] Matthew Melvin MD [facility] [address] [place] [address] Nephrolithiasis (Primary Dx); Hypokalemia Discharge Disposition: Home Social History Tobacco Use Types Packs/Day Years Used Date Smoking Tobacco: Never Alcohol Use Standard Drinks/Week Comments Yes 0 (1 standard drink = 0.6 oz pur e alcohol) occasional Sex and Gender Information Value Date Recorded Sex Assigned at Not on file Gender Identity Not on file Sexual Orientation Not on file documented as of this encounter Patient Instructions * Patient Instructions* Matthew Melvin MD - 03/16/2013 12:32 PM EDT Please increase potassium chloride to 40 MEq three times daily for the next 10 days; you will be decreasing potassium citrate to 10 mEq twice daily. In 10 days, return potassium chloride to 20 mEq once daily and start amiloride 5 mg daily. You will remain on HCTZ 12.5 mg twice daily. documented in this encounter Progress Notes * Matthew Melvin MD - 03/16/2013 12:15 PM EDT Nephrology/Hypertension Clinic Follow-up Note [id number] ID: 37 y.o.year-old female for follow up of nephrolithiasis. Past Medical History: Nephrolithiasis Hypertension Outpatient Encounter Prescriptions as of 03/16/2013 Medication Sig Dispense Refill ??? potassium chloride (K-DUR/KLOR-CON) 20 mEq extended release tablet Take 20 mEq by mouth 2 timesdaily. ??? Potassium Citrate (UROCIT) 10 mEq TbSR Take 10 mEq by mouth daily. ??? DISCONTD: venlafaxine (EFFEXOR-XR) 37.5 mg 24 hr capsule Take 37.5 mg by mouth daily. ??? DISCONTD: SUMAtriptan (IMITREX) 50 mg tablet Take 50 mg by mouth as needed. ??? hydrochlorothiazide (HYDRODIURIL) 12.5 mg tablet 12.5 MG = 1 Tablet(s), PO, Twice daily Allergies Allergen Reactions ??? Adhesive ??? Lisinopril Other (See Comments) hypotension ??? Penicillins Hives HPI: She had a twinge of right-sided flank pain which cleared before she would have gone for medical attention. She has remained on thiazide and two forms of potassium. As noted previously, she has had unprovoked hypokalemia in the past, including during . She has required a large amount of potassium supplementation while on HCTZ and has still had subnormal serum potassium levels. No hematuria, dysuria or passage of stones or gravel. No recurrence of pain. She is trying to follow dietary restrictions but has trouble following oxalate restrictions. SH: She is working more 20-25 hours per week. ROS: She continues to have migraine headaches, occurring several times a month. The remainder of a 10-point review of systems was negative. PE: Vitals 03/16/2013 SYSTOLIC 143 DIASTOLIC 92 PULSE 73 RESPIRATIONS 16 Height (Maldivian) 5' 4 Height (Metric) 162.6 cm Weight (Maldivian) 162 lbs Weight (Metric) 73.483 kg BODY MASS INDEX 27.79 kg/m2 General: WDWN woman in no distress Eye: Conjunctivae and sclerae clear ENT: Oropharynx benign Neck: JVP normal CV: RRR. S1, S2 normal Resp: Lungs clear Back: No CVA tenderness Abd: Soft, non-tender Lymph: No cervical or submandibular adenopathy Ext: No pretibial edema Skin: No rash Neuro: Gait normal Labs: Results for BARBI IVEY ( ) as of 03/16/2013 18:24 Ref. Range 03/16/2013 10:55 03/16/2013 11:11 Sodium Latest Range: 135-145 mmol/L 139 Potassium Latest Range: 3.5-5.0 mmol/L 3.2 (L) Chloride Latest Range: 98-107 mmol/L 101 CO2 Latest Range: 22-31 mmol/L 23 Anion Gap Latest Range: 5-15 mmol/L 15 BUN Latest Range: 8-18 mg/dL 12 Creatinine Latest Range: 0.70-1.20 mg/dL 0.60 (L) Estimated GFR Latest Range: >=60 >60 Glucose Lvl Latest Range: 60-199 mg/dL 78 Calcium Latest Range: 8.5-10.5 mg/dL 9.3 24 hour urine ([facility], 02/09/13): volume 2.7 liters, calcium 292, oxalate 39, citrate 615, uric acid 641 mg; sodium 206 mmol; pH 7.66. SS CaOx 5.19, SS CaP 2.35. PCR 1.2 I independently viewed the renal ultrasound that revealed no calculi. Assessment: 1. Nephrolithiasis, calcium phosphate 90%, calcium oxalate dihydrate 10%, with risk factors hypercalciuria, hyperoxaluria, alkaline urine. SS CaOx has improved as has SS CaP though urine pH has increased; oxalate excretion has again increased. 2. History of hypertension and hypokalemia. Previous PRA and plasma aldosterone were elevated. Recommendations: 1. Reduce potassium citrate to 10 mEq twice daily. Increase KCl to 40 mEq three times daily for 10 days, then decrease to 20 mEq daily and start amiloride 5 mg daily. 2. Repeat plasma renin and aldosterone. Repeat electrolytes in 3 weeks. Consider discontinuation ofpotassium citrate altogether and use KCl as needed. 3. Dietary counseling today with special emphasis on reduced sodium intake. 4. 24 hour urine in 06/12. 4. Return visit to be determined based on 1 and 2 above. CC: BELEM MIKE MD @PCPADD@ documented in this encounter Plan of Treatment Not on file documented as of this encounter Procedures Procedure Name Priority Date/Time Associated Diagnosis Comments BASIC METABOLIC PANEL Routine 03/16/2013 11:11 AM EDT Nephrolithiasis documented in this encounter Results * (ABNORMAL) Basic Metabolic Panel (non-fasting) (03/16/2013 11:11 AM EDT) [facility] Glucose 78 60 - 199 mg/dL CERNER MILLENNIUM Comment:Diabetes: >=200 mg/d L plus symptoms Blood Urea Nitrogen 12 8 - 18 mg/dL CERNER MILLENNIUM Creatinine 0.60(L) 0.70 - 1.20 mg/dL CERNER MILLENNIUM Comment: Please note that the pediatric reference intervals supplied above were not validated at [facility]. Results from pediatric patients should be interpreted in conjunction to the patient's age, height and muscle mass. Sodium 139 135 - 145 mmol/L CERNER MILLENNIUM Potassium 3.2(L) 3.5 - 5.0 mmol/L CERNER MILLENNIUM Comment: Please note: ??Patients with WBC >100,000 may have falsely elevated Potassium levels. ??For accurate Potassium quantification in these patients send serum separator tube (gold top) for subsequent determinations. ??Contact the Clinical Chemistry Laboratory if there are any questions. Chloride 101 98 - 107 mmol/L CERNER MILLENNIUM Carbon Dioxide 23 22 - 31 mmol/L CERNER MILLENNIUM Anion Gap 15 5 - 15 mmol/L CERNER MILLENNIUM Calcium 9.3 8.5 - 10.5 mg/dL CERNER MILLENNIUM Est [...] internet browser. http://www.nkdep.nih.gov/lab-evaluation.shtml http://www.kidney.org/professionals/ Blood specimen (specimen) 03/16/2013 11:11 AM EDT 03/16/2013 11:22 AM EDT Narrative Resulting Agency Comment Spec In Lab Matthew Melvin MD CHEMISTRY ORDERAB LES Performing Organization Address City/State/[facility] Co de Phone Number [facility] documented in this encounter Visit Diagnoses Diagnosis Nephrolithiasis- Primary Calculus of kidney Hypokalemia Hypopotassemia documented in this encounter Care Teams Linux Admin Engineer Relationship Specialty Start Date End Date Belem Mike MD [address] [place] [address] PCP - General 07/23/10 10/08/15 [facility] [address] [address] [place] [address] Road Grader OperatorShower Attendant Medicine 03/26/11 documented as of this encounter
--- OUTSIDE RECORDS SUMMARY | 2024-05-27 02:35 | XMS_ITS | Encounter Summary ---
[place] [address] Care Team Providers Care Hardwood Floor Installer Name Role Phone Jim Wei MD Primary Care Provider [phone] Reason for Visit * Reason Onset Date Comments Post Procedure Call 06/17/2011 Encounter Details Date Type Department Care Team (Late st Contact Info) Description 06/17/2011 Telephone Pain [place] [id number] Huyen Luis RN Post Procedure Call Social [...] Encounter - Huyen Luis RN - 06/17/2011 3:45 PM EDT I have attempted without success to contact this patient by phone to return their call. Message left for patient to call back regarding her response. documented in this encounter Plan of Treatment Not on file documented as of this encounter Visit Diagnoses Not on filedocumented in this encounter Care Teams Hardwood Floor Installer Relationship Specialty Start Date End Date Jim Wei MD [address] [place] [address] PCP - General 07/23/10 10/08/15 [facility] [address] [address] [place] [address] Gas BlenderBinder Coverstitch Medicine 03/26/11 documented as of this encounter
--- OUTSIDE RECORDS SUMMARY | 2024-05-27 02:35 | XMS_ITS | Encounter Summary ---
Author Organization [facility] Address [facility] [place] [address] Care Team Providers Care Industrial Staff Nurse Name Role Phone Jim Wei MD Primary Care Provider [phone] Encounter Details Date Type Department Care Team (Latest Contact Info) Description 07/20/2013 1:21 PM EST - 07/20/2013 11:59 PM EST Hospital Encounter XRay at [address] [place] [address] Nephrolithiasis Social History Tobacco Use Types Packs/Day [...] mg tablet Take by mouth as needed. amiloride (MIDAMOR) 5 mg tabletIndications:Nephro lithiasis,Hypokalemia Take 1 tablet by mouth daily. 90 tablet 3 03/16/2013 04/09/2016 hydrochlorothiazide (HYDRODIURIL) 12.5 mg tablet 12.5 MG = 1 Tablet(s), PO, Twice daily 04/18/2010 10/09/2015 documented as of this encounter Miscellaneous Notes * Miscellaneous - Provider, Giuseppe - 07/25/2013 10:47 AM EST documented in this encounter Plan of Treatment Not on file documented as of this encounter Procedures Procedure Name Priority Date/Time Associated Diagnosis Comments XR IVP NEPHROSTOMY WITH BOLUS Routine 07/20/2013 2:41 PM EST Nephrolithiasis documented in this encounter Results * XR IVP nephrostomy with bolus (07/20/2013 2:41 PM EST) Anatomical Region Laterality Modality Abdomen N/A Radiographic Felicity ging 07/20/2013 2:41 PM EST Narrative 07/20/2013 4:01 PM EST Examination IVP W/NEPH-MALACHI W/BOLUS Clinical History right pelviectasis and right flank pain, ? obstruction or delayed drainage. No stone on CT Comparison ? 1. CT A/P scan (same day 07/20/2013) at 10:36 a.m. ? 2. CT A/P 09/08/2012. ? 3. IVP 07/11/2009. Technique Precontrast surgical garment inspector view of the kidneys, ureter, and bladder was performed along with 3 tomosynthesis views of the kidneys. The patient was injected with 80 cc's Omnipaque 300 intravenous contrast without complication and 5 min and 10 min post-contrast KUB radiographs were obtained and viewed. Findings A 7 mm collection of renal calculi are identified in the lower pole of the left kidney on precontrast views. These correspond with renal calculi seen on the same-day CT. No radio-opaque right renal calculi are identified. Post-contrast views demonstrate slightly dilute contrast within the renal pelvises and ureters which likely reflects hydration status. ??However, there is no evidence of pelviectasis, genitourinary filling defect or obstruction. The kidneys, ureters, and bladder are in normal anatomic position. Contrast passes promptly into an unremarkable bladder. Impression ? 1. Nonobstructive left lower pole renal calculi as seen on the most recent CT. ? 2. No evidence of obstruction or genitourinary filling defect. Film and interpretation reviewed by the attending Procedure Note Lucille Kline MD - 07/20/2013 Examination IVP W/NEPH-MALACHI W/BOLUS Clinical History right pelviectasis and right flank pain, ? obstruction or delayeddrainage. No stone on CT Comparison 1. CT A/P scan (same day 07/20/2013) at 10:[address] A/P 09/08/2012. 3. IVP 07/11/2009. Technique Precontrast surgical garment inspector view of the kidneys, ureter, and bladder was performedalong with 3 tomosynthesis views of the kidneys. The patient was injected with80 cc's Omnipaque 300 intravenous contrast without complication and 5 min and10 min post-contrast KUB radiographs were obtained and viewed. Findings A 7 mm collection of renal calculi are identified in the lower pole of theleft kidney on precontrast views. These correspond with renal calculi seen onthe same-day CT. No radio-opaque right renal calculi are identified.Post-contrast views demonstrate slightly dilute contrast within the renal pelvises and ureters which likely reflects hydration status. However, there is noevidence of pelviectasis, genitourinary filling defect or obstruction. The kidneys, ureters, and bladder are in normal anatomic position. Contrast passespromptly into an unremarkable bladder. Impression 1. Nonobstructive left lower pole renal calculi as seen on the mostrecent CT. 2. No evidence of obstruction or genitourinary filling defect. Film and interpretation reviewed by the attending Emeka Hernandez Jr., MD IMG DX ORDERABLES documented in this encounter Visit Diagnoses Diagnosis Nephrolithiasis Calculus of kidney documented in this encounter Administered Medications Inactive Administered Medications - up to 3 most recent administrations Medication Order MAR Action Action Date Dose Rate Site iohexol (OMNIPAQUE) injection 80 mL 80 mL, Intravenous, ONCE, 1 dose, On Thu07/20/13 at 1430, Routine Given 07/20/2013 2:30 PM EST 80 mLs documented in this encounter Care Teams Industrial Staff Nurse Relationship Specialty Start Date End Date Jim Wei MD [address] [place] [address] PCP - General 07/23/10 10/08/15 [facility] [address] [address] [place] [address] Talkback HostStaffing Mgr Medicine 03/26/11 documented as of this encounter
--- OUTSIDE RECORDS SUMMARY | 2024-05-27 02:35 | XMS_ITS | Encounter Summary ---
[place] [address] Care Team Providers Care Public Health Engineer Name Role Phone Jim Wei MD Primary Care Provider [phone] Encounter Details Date Type Department Care Team (Late st Contact Info) Description 12/21/2013 External Results [place] [address] Social History Tobacco Use Types Packs/Day Years [...] Procedure Name Priority Date/Time Associated Diagnosis Comments CREATININE, URINE, 24 HOUR Routine 12/08/2013 documented in this encounter Results * Creatinine, urine, 24 hour (12/08/2013) Urine specimen (specimen) Historical Provider URINE ORDERABLES documented in this encounter Visit Diagnoses Not on filedocumented in this encounter Care Teams Public Health Engineer Relationship Specialty Start Date End Date Jim Wei MD [address] [place] [address] PCP - General 07/23/10 10/08/15 [facility] [address] [address] [place] [address] Compensation ManagerTrial Consultant Medicine 03/26/11 documented as of this encounter
--- OUTSIDE RECORDS SUMMARY | 2024-05-27 02:35 | XMS_ITS | Encounter Summary ---
Author Organization [facility] Address [facility] [address] [place] [address] Care Team Providers Care Ticket Taker Ferryboat Name Role Phone Jim Wei MD Primary Care Provider [phone] Encounter Details Date Type Department Care Team (Late st Contact Info) Description 06/16/2011 Orders [place] [address] Nacho Almonte MD [facility] [place] [address] Social History Tobacco Use Types Packs/Day Years [...] Associated Diagnosis Comments FILM LIBRARY STORAGE ONLY PAIN CLINIC ULTRASOUND Routine 06/16/2011 4:36 PM EDT documented in this encounter Results * FILM LIBRARY- STORAGE ONLY PAIN CLINIC ULTRASOUND (06/16/2011 4:36 PM EDT) 06/16/2011 4:36 PM EDT Narrative LEE - 01/24/2014 11:33 AM EDT This is a non-reportable exam. Procedure Note Scooter Hussein - 01/24/2014 This is a non-reportable exam. Nacho Almonte MD [facility] FILM LIBRARY ORD ERABLES RAD [address] [facility] [place] [address] documented in this encounter Visit Diagnoses Not on filedocumented in this encounter Care Teams Ticket Taker Ferryboat Relationship Specialty Start Date End Date Jim Wei MD [address] [place] [address] PCP - General 07/23/10 10/08/15 [facility] [address] [address] [place] [address] Aircraft RefuelerSuppression Crew Leader Medicine 03/26/11 documented as of this encounter
--- OUTSIDE RECORDS SUMMARY | 2024-05-27 02:35 | XMS_ITS | Encounter Summary ---
Author Organization [facility] Address [facility] [address] [place] [address] Care Team Providers Care Supervisor Pit And Auxiliaries Name Role Phone Jim Wei MD Primary Care Provider [phone] Reason for Visit * Reason Comments Nephrolithiasis Encounter Details Date Type Department Care Team (Late st Contact Info) Description 07/20/2013 9:30 AM EST [place] [address] Sowmya Ingram Jr., MD [facility] [place] [address] Nephrolithiasis (Primary Dx); Calculus of kidney Discharge Disposition: Home Social History Tobacco Use [...] Reading Time Taken Comments Blood Pressure 141/101 07/20/2013 9:21 AM EST Pulse 83 07/20/2013 9:21 AM EST Temperature - - Respiratory Rate 16 07/20/2013 9:21 AM EST Oxygen Saturation - - Inhaled Oxygen Concentration - - Weight 77.1 kg (170 lb) 07/20/2013 9:21 AM EST Height 162.6 cm (5' 4) 07/20/2013 9:21 AM EST Body Mass Index 29.18 07/20/2013 9:21 AM EST documented in this encounter Progress Notes * Sowmya Ingram Jr., MD - 07/20/2013 9:47 AM EST HPI: Ms. Ivey is a very pleasant 37 year old woman who returns for evaluation for new right sided flank pain. She has known hypercalciuric/hyperoxaluric stone disease. Metabolic [...] then considered not likely after labwork returned. Prompting today's visit, she began to have right CVA pain 2-3 weeks ago, 5-9/10 in severity. Pain radiates anteriorly, intermittent in occurrence, colicky in nature, currently 5/10 in severity. She denies associated hematuria, but notes nausea. She saw her PCP last week who ordered a renal u/s, performed 07/18/13. This revealed right hydronephrosis and CT was recommended to assess for urolithiasis Review of Systems : As above, otherwise unchanged since last visit Past medical history: HTN, urolithiasis. Past surgical history: right ureteroscopy. Family history: no fam hx of stones Social History: no tobacco, social EtOH. UROLOGIC MEDICATIONS: Hydrochlorothiazide 12.5 mg daily Amiloride 5mg daily Physical Exam Vitals reviewed. Constitutional: She is oriented to person, place, and time. She appears well- developed and well-nourished. No distress. HENT: Head: Normocephalic and atraumatic. Eyes: No scleral icterus. Cardiovascular: Normal rate and regular rhythm. Pulmonary/Chest: Effort normal. No respiratory distress. She has no wheezes. Abdominal: Soft. She exhibits no distension. There is tenderness (RUQ and RLQ tenderness to percussion). There is no rebound. Genitourinary: Mild right CVA tenderness to percussion Musculoskeletal: She exhibits no edema and no tenderness. Neurological: She is alert and oriented to person, place, and time. Skin: Skin is warm and dry. She is not diaphoretic. No erythema. Psychiatric: She has a normal mood and affect. Imaging studies: I independently reviewed her renal u/s report from [facility], with results of right hydronephrosis without definite intra-renal stone. Laboratory studies: 24 hour urine: 02/09/13; 09/15/12 [...] and 0.24) Serum Chemistry Studies: (07/14/13 -- [facility]) serum Ca--8.5; potassium 3.5 Impression/Plan: 1)Urolithiasis -- suspect possible right renal colic, possible right ureteral stone. We discussed diagnostic options including CT, cysto/retrograde/ureteroscopy, or watchful waiting. She opts for CT.I ordered it and she will return after it is performed. 2) Hypercalciuric borderline hypocitraturic urolithiasis. We will plan repeat renal u/s in 6 months, follow up in metabolic stone clinic Spring 2013. ADDENDUM: She returned after CT, which I independently reviewed with her. There was no evidence of right sided renal or ureteral stones. Two non-obstructing left renal stones again noted. No right sided hydronephrosis, but note is made of right renal pelvis appearing slightly more full than on prior CT. We discussed this, and based upon report she would like to proceed with functional imaging to assess for any evidence of functional obstruction. I have ordered BMP and IVP after discussing options, relative risks, benefits, and limitations. documented in this encounter Plan of Treatment Scheduled Orders Name Type Priority Associated Diagnoses Orde r Schedule Basic Metabolic Panel (non-fasting) Lab STAT Nephrolithiasis Expected: 07/20/2013 (Approximate), Expires: 07/20/2014 documented as of this encounter Procedures Procedure Name Priority Date/Time Associated Diagnosis Comments URINE CULTURE Routine 07/20/2013 1:58 PM EST Nephrolithiasis BASIC METABOLIC PANEL STAT 07/20/2013 12:55 PM EST Calculus of kidney URINALYSIS WITH REFLEX CULTURE Routine 07/20/2013 12:00 PM EST Nephrolithiasis documented in this encounter [...] 09/08/2012. ? 3. IVP 07/11/2009. Technique Precontrast organic extractions technician view of the kidneys, ureter, and bladder [...] A/P 09/08/2012. 3. IVP 07/11/2009. Technique Precontrast organic extractions technician view of the kidneys, ureter, and bladder [...] the attending Sowmya Ingram Jr., MD IMG DX ORDERABLES * Urine culture Clean Catch Urine (07/20/2013 1:58 PM EST) Urine Culture ? Patient Name: BARBI IVEY ? Ordered By: SOWMYA INGRAM JR ? MR#: [id number] ?LOC: ??5B ? /Sex: ??1975 (37 years), ? Female ? PROCEDURE: Urine Culture ?SOURCE: U CC ? COLLECTED: 07/20/2013 13:58 ? STARTED: 07/20/2013 13:58 ? FINAL REPORT ? Final Report ? Verified:07/22/20 13 08:50 ? 50,000-99,000 cfu/ml Staphylococcus saprophyticus ? Susceptibility testing not routinely performed for Staphylococcus species ? and other Gram Positive ? organisms from urine. ? PRELIMINARY REPORT ? Preliminary Report ? Verified:07/21/20 13 08:27 ? 50,000-99,000 cfu/ml Coagulase negative Staphylococcus species ? Susceptibility testing not routinely performed for Staphylococcus species ? and other Gram Positive ? organisms from urine. ? CERNER MILLENNIUM Urine specimen obtained by clean catch procedure (specimen) 07/20/2013 1:58 PM EST 07/20/2013 1:58 PM EST Narrative Resulting Agency Comment Spec In Lab Sowmya Ingram Jr., MD MICROBIOLOGY - GEN ERAL ORDERABLES CERNER MILLENNIUM * Basic Metabolic Panel (non-fasting) (07/20/2013 12:55 PM EST) Glucose 92 60 - 199 mg/dL CERNER MILLENNIUM Comment:Diabetes: >=200 mg/d L plus symptoms Blood Urea Nitrogen 12 8 - 18 mg/dL CERNER MILLENNIUM Creatinine 0.70 0.70 - 1.20 mg/dL CERNER MILLENNIUM Comment: Please note that the pediatric reference intervals supplied above were not validated at [facility]. Results from pediatric patients should be interpreted [...] the following links into your internet browser. http://www.Lenskart.comdep.nih.gov/lab-evaluation.shtml http://www.kidney.org/professionals/ Blood specimen (specimen) 07/20/2013 12:55 PM EST 07/20/2013 1:02 PM EST Narrative Resulting Agency Comment Spec In Lab Sowmya Ingram Jr., MD CHEMISTRY ORDERABL ES Performing Organization Address [place] Co de Phone Number CERNER MILLENNIUM * Urinalysis with microscopic (07/20/2013 12:00 PM EST) Glucose, Urine Dipstick Negative Negative mg/dL CERNER MILLENNIUM Protein, Urine Dipstick Negative mg/dL CERNER MILLENNIUM Bilirubin, Urine Dipstick Negative Negative mg/dL CERNER MILLENNIUM Comment: Clinical correlation required for positive Urine Bilirubin results as false positive may occur with some drugs and drug related products. If a false positive is suspected a serum total bilirubin should be considered if clinically indicated. Urobilinogen, Urine Dipstick Normal mg/dL CERNER MILLENNIUM pH, Urn (dipstick) 6.5 5.0 - 8.0 CERNER MILLENNIUM Blood, Urine Dipstick Negative mg/dL CERNER MILLENNIUM Ketone, Urine Dipstick Negative mg/dL CERNER MILLENNIUM Nitrite, Urine Dipstick Negative CERNER MILLENNIUM Leukocytes, Urine Dipstick Negative mcL CERNER MILLENNIUM Appearance, Urine Dipstick Clear Clear CERNER MILLENNIUM Specific [place] Urine Automated 1.009 1.002 - 1.030 CERNER MILLENNIUM Color, Urine Dipstick Light Yellow Yellow CERNER MILLENNIUM RBC, Urine <1 0 - 4 /HPF CERNER MILLENNIUM WBC, Urine 2 0 - 5 /HPF CERNER MILLENNIUM Squamous Epithelial Cells, Urine 1 <=4 /HPF CERNER MILLENNIUM Urine specimen (specimen) 07/20/2013 12:00 PM EST 07/20/2013 1:37 PM EST Narrative Resulting Agency Comment Spec In Lab Sowmya Ingram Jr., MD URINE ORDERABLES Performing Organization Address [place] Co de Phone Number CERNER MILLENNIUM * CT abdomen & pelvis WO contrast (07/20/2013 10:40 AM EST) Anatomical Region Laterality Modality Abdomen, Pelvis Computed Tomogra phy 07/20/2013 10:4 0 AM EST Narrative 07/20/2013 10:[address] Abdomen / Pelvis Without Contrast Clinical History Right flank pain and mild right hydro on outside u/s dated 07/18/2013 evaluate for kidney stone Comparison 09/08/2012. Technique Non contrast helical CT of the abdomen and pelvis was performed. Multiplanar formatted images were reviewed. Findings Limited unenhanced images of the portions of the liver and spleen included in the field of view are unremarkable without focal lesions. ??Gallbladder decompressed without adjacent inflammation. ??Unenhanced images of the pancreas and adrenal glands are within normal limits. The right renal pelvis is slightly more full than on the comparison study, however no hydronephrosis or hydroureter seen and there are no right renal calculi. 2 nonobstructing left lower pole renal calculi are noted which each measure approximately 3-4 mm; 1 was present on prior study. ??No left renal collecting system dilatation, nephromegaly, or adjacent stranding. No abdominal or pelvic lymphadenopathy. ??No free fluid, bowel dilatation, or inflammatory process of bowel or mesentery. ??Uterus and adnexa are within normal limits for the patient's age. Review of osseous structures demonstrates no suspicious lytic or sclerotic osseous lesions. Impression ? 1. 2 nonobstructing left lower pole renal calculi. Procedure Note Camille Lewis MD - 07/20/[address] Abdomen / Pelvis Without Contrast Clinical History Right flank pain and mild right hydro on outside u/s dated 07/18/2013 evaluate for kidney stone Comparison 09/08/2012. Technique Non contrast helical CT of the abdomen and pelvis was performed.Multiplanar formatted images were reviewed. Findings Limited unenhanced images of the portions of the liver and spleen includedin the field of view are unremarkable without focal lesions. Gallbladder decompressed without adjacent inflammation. Unenhanced images of thepancreas and adrenal glands are within normal limits. The right renal pelvis is slightly more full than on the comparison study, however no hydronephrosis or hydroureter seen and there are no right renal calculi. 2 nonobstructing left lower pole renal calculi are noted which eachmeasure approximately 3-4 mm; 1 was present on prior study. No left renalcollecting system dilatation, nephromegaly, or adjacent stranding. No abdominal or pelvic lymphadenopathy. No free fluid, bowel dilatation,or inflammatory process of bowel or mesentery. Uterus and adnexa are within normal limits for the patient's age. Review of osseous structures demonstrates no suspicious lytic or sclerotic osseous lesions. Impression 1. 2 nonobstructing left lower pole renal calculi. Sowmya Ingram Jr., MD IMG CT ORDERABLES documented in this encounter Visit Diagnoses Diagnosis Nephrolithiasis- Primary Calculus of kidney Calculus of kidney Nephrolithiasis Calculus of kidney Nephrolithiasis Calculus of kidney documented in this encounter Care Teams Supervisor Pit And Auxiliaries Relationship Specialty Start Date End Date Jim Wei MD [address] [place] [address] PCP - General 07/23/10 10/08/15 [facility] [address] [address] [place] [address] Newspaper Carriers SupervisorAlodize Machine Helper Medicine 03/26/11 documented as of this encounter
--- OUTSIDE RECORDS SUMMARY | 2024-05-27 02:35 | XMS_ITS | Encounter Summary ---
Author Organization [facility] Address [facility] [address] [place] [address] Care Team Providers Care Forestry Patrolman Name Role Phone Jim Wei MD Primary Care Provider [phone] Reason for Visit * Reason Onset Date Comments Flank Pain 07/21/2013 Encounter Details Date Type Department Care Team (Late st Contact Info) Description 07/21/2013 [place] [address] Nura Ramirez MD [facility] [place] [address] Flank Pain Social History Tobacco Use Types Packs/Day Years Used Date Smoking Tobacco: Never Alcohol Use Standard Drinks/Week Comments Yes 0 (1 standard drink = 0.6 oz pur e alcohol) occasional Sex and Gender Information Value Date Recorded Sex Assigned at Not on file Gender Identity Not on file Sexual Orientation Not on file documented as of this encounter Miscellaneous Notes * Telephone Encounter - Nura Ramirez MD - 07/21/2013 10:03 AM EST Patient called with results of her IVP/labs. Patient is having persistent pressure/urinary frequency, but no dysuria. IVP is normal - contrast taken up and excreted symmetrically. Labs WNL K - 3.5 Urine culture: 50-99K Coag neg staph Given patient's persistent symptoms. I will treat her for 7 days with Bactrim. If she continues to have this pain other causes of back pain should be excluded. documented in this encounter Plan of Treatment Not on file documented as of this encounter Visit Diagnoses Not on filedocumented in this encounter Care Teams Forestry Patrolman Relationship Specialty Start Date End Date Jim Wei MD [address] [place] [address] PCP - General 07/23/10 10/08/15 [facility] [address] [address] [place] [address] Shoes Hand SewerSpecial Agent In Charge Medicine 03/26/11 documented as of this encounter
--- OUTSIDE RECORDS SUMMARY | 2024-05-27 02:35 | XMS_ITS | Encounter Summary ---
Author Organization [facility] Address [facility] [address] [place] [address] Care Team Providers Care Geochemical Manager Name Role Phone Jim Wei MD Primary Care Provider [phone] Encounter Details Date Type Department Care Team (Late st Contact Info) Description 03/29/2013 Telephone [place]ph[place] [id number] Matthew Melvin MD [facility] [place] [address] Social History Tobacco Use Types Packs/Day Years [...] Telephone Encounter - Matthew Melvin MD - 03/29/2013 9:19 PM EDT I spoke to the patient again today. Because of uncertainty as to her current serum potassium, I modified the potassium regimen slightly. She will stop potassium citrate after today and take 40 mEq KCl each of the next two days. She will then stop potassium supplementation in three days when she starts back on HCTZ 12.5 mg once daily and start amiloride 5 mg daily. documented in this encounter Plan of Treatment Not on file documented as of this encounter Visit Diagnoses Not on filedocumented in this encounter Care Teams Geochemical Manager Relationship Specialty Start Date End Date Jim Wei MD [address] [place] [address] PCP - General 07/23/10 10/08/15 [facility] [address] [address] [place] [address] Director Of Family Service CenterRn Diabetes Medicine 03/26/11 documented as of this encounter
--- OUTSIDE RECORDS SUMMARY | 2024-05-27 02:35 | XMS_ITS | Encounter Summary ---
Author Organization [facility] Address [facility] [address] [place] [address] Care Team Providers Care Human Resources Technician Name Role Phone Jim Wei MD Primary Care Provider [phone] Encounter Details Date Type Department Care Team (Late st Contact Info) Description 07/18/2013 Orders [place] [address] Emeka Hernandez Jr., MD [facility] [place] [address] Social History Tobacco Use Types Packs/Day Years Used Date Smoking Tobacco: Never Alcohol Use Standard Drinks/Week Comments Yes 0 (1 standard drink = 0.6 oz pur e alcohol) occasional Sex and Gender Information Value Date Recorded Sex Assigned at Not on file Gender Identity Not on file Sexual Orientation Not on file documented as of this encounter Plan of Treatment Pending Results Name Type Priority Associated Diagnoses Date /Time Film Library- Storage only Ultrasound Study Imaging Routine 07/18/2013 9:45 AM EST documented as of this encounter Visit Diagnoses Not on filedocumented in this encounter Care Teams Human Resources Technician Relationship Specialty Start Date End Date Jim Wei MD [address] [place] [address] PCP - General 07/23/10 10/08/15 [facility] [address] [address] [place] [address] Dye Winch OperatorTractor Mechanic Medicine 03/26/11 documented as of this encounter
--- OUTSIDE RECORDS SUMMARY | 2024-05-27 02:35 | XMS_ITS | Encounter Summary ---
Author Organization [facility] Address [facility] [address] [place] [address] Care Team Providers Care Director Of Catering Sales Name Role Phone Jim Wei MD Primary Care Provider [phone] Encounter Details Date Type Department Care Team (Latest Contact Info) Description 09/08/2012 2:17 PM EST - 09/08/2012 4:54 PM [facility] Hospital En[place] [address] CL[address], DR ESTEVEZ Calculus of kidney Social History Tobacco Use [...] Associated Diagnosis Comments US RETROPERITONEAL COMPLETE STAT 09/08/2012 3:06 PM EST Calculus of kidney documented in this encounter Results * US retroperitoneal complete (09/08/2012 3:06 PM EST) Anatomical Region Laterality Modality Abdomen Ultrasound 09/08/2012 3:06 PM EST Narrative 09/08/2012 3:21 PM EST ? Renal ? (Signed Final 09/08/2012 03:20 pm) Patient Info ID: ? [id number] ? : [birth year] (36 yrs) Name: ? BARBI IVEY ? Visit Date: 09/08/2012 02:50 pm Performed By Performed By: ?Patrizia Francisco [facility] Associate: ? Davie Parra MD Attending: ? Meet Rojas MD Referred By: ? SOWMYA HERNANDEZ MD Service(s) Provided URETRO - Retroperitoneal Complete - [id number] ? [id number] Indications History of stones Comparison Ultrasound: 03/16/12 [...] Final 09/08/2012 03:20 pm) Patient Info ID: [id number] : [birth year] (36 yrs) Name: BARBI IVEY Visit Date: 09/08/2012 02:50 pm Performed By Performed By: Patrizia Francisco [facility] Associate: Davie Parra MD Attending: Meet Rojas MD. Referred By: SOWMYA HERNANDEZ MD Service(s) Provided URETRO - Retroperitoneal Complete - [id number] Indications History of stones Comparison Ultrasound: 03/16/12 [...] in this encounter Care Teams Director Of Catering Sales Relationship Specialty Start Date End Date Jim Wei MD [address] [place] [address] PCP - General 07/23/10 10/08/15 [facility] [address] [address] [place] [address] Glass Block InstallerSiebel Architect Medicine 03/26/11 documented as of this encounter
--- OUTSIDE RECORDS SUMMARY | 2024-05-27 02:35 | XMS_ITS | Encounter Summary ---
Author Organization [facility] Address [facility] [address] [place] [address] Care Team Providers Care Industrial Gas Servicer Name Role Phone Jim Wei MD Primary Care Provider [phone] Encounter Details Date Type Department Care Team (Late st Contact Info) Description 03/17/2013 Orders Only [place] [id number] Matthew Melvin MD [facility] [place] [address] Hypokalemia (Primary Dx) Social History Tobacco Use [...] as of this encounter Results * (ABNORMAL) Aldosterone (03/23/2013 8:05 AM EDT) Aldosterone (DECEMBER) 22(H) <=21 ng/dL Stephani [facility] Comment: Reference range based on upright A.M. collection from subjects on ad lewis sodium uptake. Test Performed by: [address] [address] Machine Attendant: Charles Zimmerman III, M.D. Blood specimen (specimen) 03/23/2013 8:05 AM EDT 03/23/2013 9:08 AM EDT Narrative Resulting Agency Comment Spec In Lab Matthew Melvin MD LAB SEND OUT PAIGE KUMAR Performing Organization Address [facility] de Phone Number [facility] * Renin Activity (03/23/2013 8:05 AM EDT) Renin Activity (DECEMBER) 3.6 ng/ml/hr [facility] Comment: -- REFERENCE VALUE -- (Peripheral vein specimen) Na-deplete, upright: ??Mean: 10.8 ??Range: 2.9-24 Na-replete, upright: ??Mean: 1.9 ??Range: <=0.6-4.3 Test Performed by: [address] [address] Machine Attendant: Charles Zimmerman III, M.D. Blood specimen (specimen) 03/23/2013 8:05 AM EDT 03/23/2013 9:08 AM EDT Narrative Resulting Agency Comment Spec In Lab Matthew Melvin MD LAB SEND OUT PAIGE TELLEZJOVANNI Performing Organization Address [facility] de Phone Number [facility] documented in this encounter Visit Diagnoses Diagnosis Hypokalemia- Primary Hypopotassemia documented in this encounter Care Teams Industrial Gas Servicer Relationship Specialty Start Date End Date Jim Wei MD [address] [place] [address] PCP - General 07/23/10 10/08/15 [facility] [address] [address] [place] [address] Recruitment OfficerRecruiting Scheduler Medicine 03/26/11 documented as of this encounter
--- OUTSIDE RECORDS SUMMARY | 2024-05-27 02:35 | XMS_ITS | Encounter Summary ---
Author Organization [facility] Address [facility] [place] [address] Care Team Providers Care Lockstitcher Name Role Phone Belem Mike MD Primary Care Provider [phone] Encounter Details Date Type Department Care Team (Late st Contact Info) Description 01/11/2014 1:30 PM EDT [place] [address] Sai Raphael MD [facility] [place] [address] Nephrolithiasis (Primary Dx); Hypocitraturia Discharge Disposition: Home Social History Tobacco Use Types Packs/Day Years Used Date Smoking Tobacco: Never Alcohol Use Standard Drinks/Week Comments Yes 0 (1 standard drink = 0.6 oz pur e alcohol) occasional Sex and Gender Information Value Date Recorded Sex Assigned at Not on file Gender Identity Not on file Sexual Orientation Not on file documented as of this encounter Progress Notes * Sai Raphael MD - 01/16/2014 2:56 PM EDT Renal Staff Addendum Patient seen and examined with Dr. Fields. I agree with the above note which represents our joint assessment and plan with the following additions: Renal US viewed personally and shows no sign visible kidney stones. Discussed the increased risk of nephrolithiasis on topamax. She and Dr. Mike were aware of the issue when the medication was started and she feels the improvement in her headaches is worth the risk of nephrolithiasis. Counseled to maintain at least 2.5L/d water intake. Will try urocit K given the fall in urinary citrate following topamax initiation. Discussed with Dr. Hernandez; we will see her back in 6 months or sooner prn. * Linnea Fields MD - 01/11/2014 1:47 PM EDT Nephrology/Hypertension/[facility] Follow-up Note [id number] ID: 38 y.o.year-old female for follow up of nephrolithiasis. Past Medical History: Nephrolithiasis Hypertension Migraine Past Surgical History Procedure Date ??? section X2 ??? Orthopedic surgery Foot ??? Kidney stone surgery Extraction via cystoscopy ??? Lithotripsy Outpatient Encounter Prescriptions as of 01/11/2014 Medication Sig Dispense Refill ??? potassium Citrate (UROCIT-K 10) 10 mEq TbSR Take 1 tablet by mouth 2 times daily for 30 days. 60 tablet 0 ??? topiramate (TOPAMAX) 25 mg tablet Take [...] (See Comments) hypotension ??? Penicillins Hives Subjective: She comes in follow up; finished antibiotics for uti Recently. Topamax has been started for migraines since August. She is currently on hctz, amiloride; while her urocit was weaned off. She reports that her last 24 h collection was on a bad day when she was not able to drink her usual amount of fluids. SH: She is working more 20-25 hours per week. ROS: Her migraine headaches have improved after topamax (she understands the risk of increased stone formation from it). The remainder of a 10-point review of systems was negative. PE: Vitals 01/11/2014 BP 132/86 Pulse 74 Resp 16 Height to cm. 162.6 cm Height in inches 5' 4 Weight (Uzbek) 172 lbs Weight (Metric) 78 kg BMI (Calculated) 29.6 BSA (Calculated - sq m) 1.88 SpO2 General: WDWN woman in no distress Eye: [...] (H) Renin Activity No range found 3.6 24 hour urine ([facility], 02[facility]): volume 2.7 liters, calcium 292, oxalate 39, citrate 615, uric acid 641 mg; sodium 206 mmol; pH 7.66. SS CaOx 5.19, SS CaP 2.35. PCR 1.2 24 h urine (12/07/2013): vol 1.16 ca 154 ox 35 ss Ca Ox 8.6 citrate 297 ss Ca P 3.67 pH 6.9 Renal usg:Normal renal and bladder ultrasound. No renal calculus seen. Assessment: 1. Nephrolithiasis, calcium phosphate 90%, calcium oxalate dihydrate 10%, with risk factors boderline hyperoxaluria (improved), alkaline urine (improved). Hypercalcuria has improved with HCTZ. SS CaOx has increased as has SS Ca P. Her urine volume has decreased (pt reports not a typical day). 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 History of hypertension and hypokalemia. 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 Continue rest of meds same -repeat BMP in 1 month (lab requisition form sent to [facility], [facility] per pt'srequest) -encouraged to drink water >3 liters/day -stressed on low oxalate diet -repeat litho link study before her next visit in 6 months time Seen and d/w Dr Ijeoma Fields Nephrology Fellow Pager #[phone] CC: BELEM MIKE MD @[email or web address]@ documented in this encounter Plan of Treatment Not on file documented as of this encounter Visit Diagnoses Diagnosis Nephrolithiasis- Primary Calculus of kidney Hypocitraturia Other nonspecific finding on examination of urine documented in this encounter Care Teams Lockstitcher Relationship Specialty Start Date End Date Belem Mike MD [address] [place] [address] PCP - General 07/23/10 10/08/15 [facility] [address] [address] [place] [address] Director Mobile Media SolutionsLoan Administrator Medicine 03/26/11 documented as of this encounter
--- OUTSIDE RECORDS SUMMARY | 2024-05-27 02:35 | XMS_ITS | Encounter Summary ---
Author Organization [facility] Address [facility] [address] [place] [address] Care Team Providers Care Community Outreach Coordinator Name Role Phone Jim Wei MD Primary Care Provider [phone] Reason for Visit * Reason Comments Nephrolithiasis Encounter Details Date Type Department Care Team (Latest Contact Info) Description 03/16/2013 11:30 AM EDT [place] [address] CLINIC, Emeka Baez Jr., MD [facility] [place] [address] Nephrolithiasis (Primary Dx) Discharge Disposition: Home Social History [...] Reading Time Taken Comments Blood Pressure 143/92 03/16/2013 11:25 AM EDT Pulse 73 03/16/2013 11:25 AM EDT Temperature - - Respiratory Rate 16 03/16/2013 11:25 AM EDT Oxygen Saturation - - Inhaled Oxygen Concentration - - Weight 73.5 kg (162 lb) 03/16/2013 11:25 AM EDT Height 162.6 cm (5' 4) 03/16/2013 11:25 AM EDT Body Mass Index 27.81 03/16/2013 11:25 AM EDT documented in this encounter Progress Notes * Lori Ro LD - 03/16/2013 1:18 PM EDT Follow up Note for Nutrition related to Kidney Stone Prevention Met with Mrs. Ivey to review dietary intake. Previous goals: 1) Dietary calcium (yogurt/cottage cheese as she does not drink milk) timed with meals 2) Reducing foods high in Oxalate Interview: Mrs. Ivey has purchased a 40 ounce water bottle and carries it with her everywhere. Most days she drinks 80 ounces of water. She reports that her sodium intake has increased lately with an increase in olives, eating out and potato chips. Goals/Interventions: 1. Reviewed a low sodium diet, discussed tips and provided a 2 gram sodium booklet 2. Encouraged Barbi to continue with increased water intake. 3. Discussed adding lemon juice to water for added citrate. Pt agrees Will follow up in 9 months. * Emeka Hernandez Jr., MD - 03/16/2013 12:05 PM EDT Ms. Ivey is a very pleasant 37 years old woman who returns for urologic [...] showed no evidence of urinary tract stones or hydronephrosis. We added supplemental KCl for her hypokalemia and she has been tolerating this well. 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 Since her last visit she had an episode of right CVA pain 3-4 weeks ago, mild in severity, 2 days duration, then resolved after hydration. No associated gross hematuria, nausea, emesis, or fevers. Past medical history: HTN, urolithiasis. Past surgical history: right ureteroscopy. Family history: no fam hx of stones Social History: no tobacco, social EtOH. Dietary History: Greater than 2 liters fluid intake/day; lower sodium intake; moderate purine/animal protein intake; low oxalate intake; improving dairy intake UROLOGIC MEDICATIONS: Urocit-K 10 20 mEq po bid Hydrochlorothiazide 12.5 mg Tablet 12.5 MG = 1 Tablet(s) / Oral Twice daily Potassium Chloride 40meq bid Review of Systems Constitution: Negative for chills and fever. Gastrointestinal: Negative for abdominal pain. Genitourinary: Negative for flank pain and hematuria. Physical Exam Constitutional: She is oriented to [...] normal. Imaging studies: I independently reviewed her CT from 09/08/12-- no evidence of right sided hydronephrosis, hydroureter, or urinary tract stones. Small nonobstructing 2-3 mm left renal stone noted. Laboratory studies: 24 hour urine: 02/09/13; 09/15/12 [...] at 0.17, 0.48 and 0.24) Results for BARBI IVEY ( ) as of 03/16/2013 12:11 Ref. Range 03/16/2013 11:11 Sodium Latest Range: 135-145 mmol/L [...] 78 Calcium Latest Range: 8.5-10.5 mg/dL 9.3 Impression/Plan: 1)Urolithiasis -- hypercalciuric borderline hypocitraturic urolithiasis. No definite stones seen onu/s today. Currently asymptomatic. No intervention required since 2008. We will plan repeat renal u/s in 9 months, follow up at that time. - BMP today still notable for hypokalemia. Dr Melvin proceeding with further evaluation Hypercalciuria may be related to hypernatriuria--will see Lori Ro for dietary consultation. * Denis Garcia - 03/16/2013 7:44 AM EDT See note documented in this encounter Plan of Treatment Not on file documented as of this encounter Visit Diagnoses Diagnosis Nephrolithiasis- Primary Calculus of kidney documented in this encounter Care Teams Community Outreach Coordinator Relationship Specialty Start Date End Date Jim Wei MD [address] [place] [address] PCP - General 07/23/10 10/08/15 [facility] [address] [address] [place] [address] Hyster DriverClay Dry Press Helper Medicine 03/26/11 documented as of this encounter
--- OUTSIDE RECORDS SUMMARY | 2024-05-27 02:35 | XMS_ITS | Encounter Summary ---
[place] [address] Care Team Providers Care Banana Handler Name Role Phone Belem Mike MD Primary Care Provider [phone] Reason for Visit * Reason Comments Joint Pain Encounter Details Date Type Department Care Team ([facility] Contact Info) Description 09/05/2011 11:45 AM EST Follow[place] [address] Angelina Medina, NAVAL DESIGNER [address] [facility] [address]1 [place] [address] Right shoulder pain; halfway current use of opiate analgesic Discharge Disposition: Home Social History Tobacco Use [...] Sign Reading Time Taken Comments Blood Pressure 102/64 09/05/2011 12:29 PM EST Pulse 84 09/05/2011 12:29 PM EST Temperature - - Respiratory Rate 16 09/05/2011 12:29 PM EST Oxygen Saturation - - Inhaled Oxygen Concentration - - Weight - - Height - - Body Mass Index - - documented in this encounter Progress Notes * Angelina Medina APRN - 09/05/2011 12:25 PM EST Problem:chronic shoulder, neck and hand pain CC:I'm still doing PT. Subjective: Ms. Ivey is a 35 y.o. year-old female who returns to the Pain Clinic for evaluation and a medication refill. She reports essentially no change in her chronic pain. She had CTR on the right which has not fully healed but feels this has reduced her pain to 4-5/10. She has reduced her morphine to a single dose qhs. She would like to be switched to a milder medicine. Pain Location:right neck, shoulder, wrist. Pain Relief: adequate Side Effects:mild constipation Pain Quality:burning in shoulder, heaviness and throbbing in the neck. Depression: a little better because of improvement in pain Anxiety: improved on lower dose of Neurontin Sleep: variable Smoking: never Alcohol: unclear Functional Status: Attending PT, caring for her family. Objective: Ms. Ivey is pleasant, []overweight [x]well-developed []thin and in no significant distress. Eye contact is good. Speech is fluent and clear. Cognition is intact. Ambulation is []antalgic []symmetric swing and stance [x] not observed. Affect is appropriate. Mood is [x]euthymic []depressed. Cardiac is with normal rate and regular rhythm. Holds right arm in slightly protective posture. Assessment: Chronic right upper extremity and neck pain. Plan: This encounter lasted 40 minutes with 25 minutes spent in [id number] education and counseling regarding options for managing pain and coordination of care as described below. We discussed options to reduce her medication. We ultimately settled on a plan whereby she will take an occasional tramadol and wean off the MS Contin. She will continue with PT and would like to speak with Dr. Almonte about further injections. I discussed the following: []the natural history of chronic pain [x]the limited efficacy of opioids [x]measures to manage constipation [x]safe storage and disposal of medication [x]association between depression and chronic pain []sleep hygiene techniques She left a urine sample for toxicology. All questions were answered. The medication list was updated per patient's verbal report. Prescriptions dispensed: 1) MS Contin 15 mg qhs, #15 2) Tramadol 50 mg twice daily prn pain, #60 with 1 refill. RTC: 6-[address] Almonte Copy:BELEM MIKE MD documented in this encounter Plan of Treatment Not on file documented as of this encounter Procedures Procedure Name Priority Date/Time Associated Diagnosis Comments DRUG SCREEN WITH CONFIRMATION, URINE (SEND OUT) Routine 09/05/2011 1:00 PM EST halfway current use of opiate analgesic documented in this encounter Results * Drug Screen with Confirmation, Urine (09/05/2011 1:00 PM EST) U TATE w/Conf ? HI ? Expected Test ? Result ?LO ??Units ??Values --------- Pain Clinic Drug Screen, U ??Amphetamines ? Negative ?ng/mL ??Cutoff: 1000 ??MDMA (Ecstasy) ? Negative ?ng/mL ??Cutoff: 500 ??Barbiturates ? Negative ?ng/mL ??Cutoff: 200 ??Benzodiazepines ?Negative ?ng/mL ??Cutoff: 200 ??Cocaine Metabolite ? Negative ?ng/mL ??Cutoff: 300 ??Methadone ?Negative ?ng/mL ??Cutoff: 300 ??Opiates ?Positive ?ng/mL ??Cutoff: 300 ??Phencyclidine ?Negative ?ng/mL ??Cutoff: 25 ??Propoxyphene ? Negative ?ng/mL ??Cutoff: 300 ??Tetrahydrocanna binols ?Negative ?ng/mL ??Cutoff: 50 ??Ethanol ?Negative ?mg/dL ??Cutoff: 10 Results from this test are presumptive; for positive results refer to the corresponding drug confirmation for the definitive result. This report is intended for use in clinical monitoring and management of patients. It is not intended for use in employment-relate d drug testing. ??Confirmation - Opiates ?? Positive ??Codeine ?Negative ?ng/mL ??<100 ??Hydrocodone ?Negative ?ng/mL ??<100 ??Hydromorphone ?Negative ?ng/mL ??<100 ??Morphine ? 1419 ?ng/mL ??<100 Presence of morphine at low concentration (< 2000 ng/mL) may be due to poppy seed ingestion. ??Oxycodone ?Negative ?ng/mL ??<100 ??Oxymorphone ?Negative ?ng/mL ??<100 This report is intended for use in clinical monitoring and management of patients. It is not intended for use in employment-relate d drug testing. Test Performed by: [facility] [address] [address] Client Insights Consultant: Lizet Cid, Ph.D. [facility] Urine specimen (specimen) 09/05/2011 1:00 PM EST 09/05/2011 1:56 PM EST Nacho Almonte MD URINE ORDERABLES Performing Organization Address City/State/ZIP Co dc Phone Number [facility] documented in this encounter Visit Diagnoses Diagnosis Right shoulder pain Pain in joint, shoulder region halfway current use of opiate analgesic Encounter for long-term (current) use of other medications documented in this encounter Care Teams Banana Handler Relationship Specialty Start Date End Date Belem Mike MD [address] [place] [address] PCP - General 07/23/10 10/08/15 [facility] [address] [address] [place] [address] Research Environmental EngineerCuff Folder Medicine 03/26/11 documented as of this encounter
--- OUTSIDE RECORDS SUMMARY | 2024-05-27 02:35 | XMS_ITS | Encounter Summary ---
Author Organization [facility] Address [facility] [address] [address] Care Team Providers Care Placement Assistant Name Role Phone Jim Wei MD Primary Care Provider [phone] Encounter Details Date Type Department Care Team (Latest Contact Info) Description 03/16/2013 Orders Only Nephrology [place] [id number] Matthew Melvin MD [facility] [place] [address] Nephrolithiasis (Primary Dx) Social History Tobacco Use Types [...] Metabolic Panel (non-fasting) (03/16/2013 11:11 AM EDT) [facility] Glucose 78 60 - 199 mg/dL CERNER MILLENNIUM Comment:Diabetes: >=200 mg/d L plus symptoms Blood Urea Nitrogen 12 8 - 18 mg/dL [facility] Creatinine 0.60(L) 0.70 - 1.20 mg/dL CERNER MILLENNIUM Comment: Please note that the pediatric reference intervals supplied above were not validated at [facility]. Results from pediatric patients should be interpreted [...] kidney documented in this encounter Care Teams Placement Assistant Relationship Specialty Start Date End Date Jim Wei MD [address] [place] [address] PCP - General 07/23/10 10/08/15 [facility] [address] [address] [place] [address] Farm RancherDrawing Kiln Operator Medicine 03/26/11 documented as of this encounter
--- OUTSIDE RECORDS SUMMARY | 2024-05-27 02:35 | XMS_ITS | Encounter Summary ---
Author Organization [facility] Address [facility] Maribeth mu[address] [address] Care Team Providers Care Vat Washer Name Role Phone Jim Wei MD Primary Care Provider [phone] Reason for Visit * Reason Onset Date Comments Results 10/14/2012 Encounter Details Date Type Department Care Team (Late st Contact Info) Description 10/14/2012 Telephone [place] [address] Matthew Melvin MD [facility] [place] [address] Results Social History Tobacco Use Types Packs/Day Years [...] Telephone Encounter - Matthew Melvin MD - 10/14/2012 5:18 PM EST The patient called me back after we had tried to reach each other to review recent lab results. Blood work done at [facility] on 09/24/12 showed normal electrolytes (, potassium 4, chloride 103, CO2 27.6 mmol/l); a plasma aldosterone was 43 ng/dl and plasma renin activity was 5.8 ng/ml/h (both elevated). She collected a 24 hour urine through [facility] (1/16/13) that showed a volume of 3.4 liters, calcium 247, oxalate 40, citrate 525, and uric acid 621 mg; sodium was 124 mmol; pH 7.24. SS CaOx 4.50, SS CaP 1.03. Serum potassium has improved with increase in potassium dosage. The urine calcium is slightly elevated as is urine pH but SS CaOx and SS CaP are acceptable because of adequate urine output. The hormonal levels suggest secondary hyperaldosteronism? For now I asked her to maintain present dose of HCTZ (12.5 mg twice daily) and potassium (KCL 40 mEq twice daily; potassium citrate 20 mEq twice daily). She will collect a repeat 24 hour urine prior to next [facility] appointment. documented in this encounter Plan of Treatment Not on file documented as of this encounter Visit Diagnoses Not on filedocumented in this encounter Care Teams Vat Washer Relationship Specialty Start Date End Date Jim Wei MD [address] [place] [address] PCP - General 07/23/10 10/08/15 [facility] [address] [address] [place] [address] Industrial Tech InstructorResearcher Medicine 03/26/11 documented as of this encounter
--- OUTSIDE RECORDS SUMMARY | 2024-05-27 02:35 | XMS_ITS | Encounter Summary ---
[place] [address] Care Team Providers Care Silverlight Developer Name Role Phone Jim Wei MD Primary Care Provider [phone] Encounter Details Date Type Department Care Team (Latest Contact Info) Description 07/20/2013 10:23 AM EST - 07/20/2013 1:20 PM [facility] Hospital [place]counter [place] [address] Nephrolithiasis Social History Tobacco Use Types Packs/Day [...] CT ABDOMEN AND PELVIS WO CONTRAST Routine 07/20/2013 10:40 AM EST Nephrolithiasis documented in this encounter Results * CT [...] 2 nonobstructing left lower pole renal calculi. Emeka Hernandez Jr., MD IMG CT ORDERABLES documented in this encounter Visit Diagnoses Diagnosis Nephrolithiasis Calculus of kidney documented in this encounter Care Teams Silverlight Developer Relationship Specialty Start Date End Date Jim Wei MD [address] [place] [address] PCP - General 07/23/10 10/08/15 [facility] [address] [address] [place] [address] Health UnderwriterSettlement Processor Medicine 03/26/11 documented as of this encounter
--- OUTSIDE RECORDS SUMMARY | 2024-05-27 02:35 | XMS_ITS | Encounter Summary ---
Author Organization [facility] Address [facility] [address]ibeth mu[address] [address] Care Team Providers Care Senior Housekeeper Name Role Phone Jim Wei MD Primary Care Provider [phone] Reason for Visit * Reason Comments Nephrolithiasis Encounter Details Date Type Department Care Team (Late st Contact Info) Description 03/16/2012 9:40 AM EDT [place] [address] Sowmya Ingram Jr., MD [facility] [place] [address] Calculus of kidney; History of kidney stones [...] Sign Reading Time Taken Comments Blood Pressure 136/87 03/16/2012 9:56 AM EDT Pulse 71 03/16/2012 9:56 AM EDT Temperature - - Respiratory Rate - - Oxygen Saturation - - Inhaled Oxygen Concentration - - Weight 74.8 kg (165 lb) 03/16/2012 9:56 AM EDT Height 162.6 cm (5' 4) 03/16/2012 9:56 AM EDT Body Mass Index 28.32 03/16/2012 9:56 AM EDT documented in this encounter Progress Notes * Sindy Isabel LPN - 03/16/2012 11:21 AM EDTAddended by: SINDY ISABEL on: 03/16/2012 Modules accepted: Orders * Kenyatta Arias LNA - 03/16/2012 11:19 AM EDTAddended by: KENYATTA ARIAS on: 03/16/2012 Modules accepted: Orders * Sowmya Ingram Jr., MD - 03/16/2012 10:17 AM EDT Subjective: Patient ID: Cecile Ivey is a 36 y.o. female. HPI Chief Complaint: hypercalciuric/hyperoxaluric urolithiasis History of Present Illness: Ms. Ivey is a very pleasant 36 [...] abd/flank pain, hematuria, nausea, vomiting, or fever. She has occ'lright flank discomfort, sore in nature, 2/10 in severity, lasting minutes in duration. She had right pyelonephritis in December 2011, now resolved. Past medical history: HTN, urolithiasis. Past surgical [...] = 1 Tablet(s) / Oral Twice daily Review of Systems As above otherwise unchanged since last visit of 05/14/2011 Objective: Physical Exam Vitals reviewed. Constitutional: She is oriented to person, place, and time. She appears well- developed and well-nourished. No distress. HENT: Head: Normocephalic and atraumatic. Cardiovascular: Normal rate. Pulmonary/Chest: Effort normal. No respiratory distress. Abdominal: Soft. She exhibits no distension and no mass. No tenderness. She has no rebound and no guarding. Genitourinary: No CVA tenderness to percussion, except scant right flank discomfort Musculoskeletal: She exhibits no edema and no tenderness. Neurological: She is alert and oriented to person, place, and time. Skin: Skin is warm and dry. She is not diaphoretic. Psychiatric: She has a normal mood and affect. Her behavior is normal. Laboratory studies: Results for CECILE IVEY ( ) as of 03/16/2012 10:18 Ref. Range 03/16/2012 09:21 Sodium Latest Range: 135-145 mmol/L 139 Potassium Latest Range: 3.5-5.0 mmol/L 3.0 (CRIT) Chloride Latest Range: 98-107 mmol/L 102 CO2 Latest Range: 22-31 mmol/L 27 Anion Gap Latest Range: 5-15 mmol/L 10 BUN Latest Range: 8-18 mg/dL 11 Creatinine Latest Range: 0.70-1.20 mg/dL 0.73 Estimated GFR Latest Range: >=60 >60 Glucose Lvl Latest Range: 60-199 mg/dL 90 Calcium Latest Range: 8.5-10.5 mg/dL 9.1 Laboratory studies: 24 hour urine: 01/29/12 (prior [...] 0.03 (normal at 0.17, 0.48 and 0.24) Imaging Studies: Ultrasound has been ordered but not yet performed Assessment and Plan: Impression/Plan: 1)Urolithiasis -- hypercalciuric borderline hypocitraturic urolithiasis. - BMP today notable for hypokalemia. We discussed means to supplement potassium, including diet andRx. Would not further increase potassium citrate as her urine pH should not be pushed any higher. She would prefer KCl Rx, and states she has had recurrent low potassium requiring supplementation with KCl this last year. -I asked her to have BMP rechecked in 1 week. She will coordinate to have this done locally with her PCP, but will return here if she cannot do it locally. -She will return to see me in 3 months with repeat bmp 2)History of Left renal stone--nonobstructing, asymptomatic -she will continue to monitor for now -await today's renal u/s documented in this encounter Plan of Treatment Not on file documented as of this encounter Procedures Procedure Name Priority Date/Time Associated Diagnosis Comments URINE CULTURE Routine 03/16/2012 11:15 AM EDT History of kidney stones BASIC METABOLIC PANEL Routine 03/16/2012 9:21 AM EDT Calculus of kidney documented in this encounter Results * (ABNORMAL) Basic Metabolic Panel (non-fasting) (06/22/2012 9:24 AM EDT) Glucose 84 60 - 199 mg/dL [facility] Comment:Diabetes: >=200 mg/d L plus symptoms Blood Urea Nitrogen 13 8 - 18 mg/dL [facility] Creatinine 0.69(L) 0.70 - 1.20 mg/dL [facility] Comment: Please note that the pediatric reference intervals supplied above were not validated at [facility]. Results from pediatric patients should be interpreted [...] Sowmya Ingram Jr., MD CHEMISTRY ORDERABL ES [facility] * Urine culture Clean Catch Urine (03/16/2012 11:15 AM EDT) Urine Culture ? Patient Name: CECILE IVEY ? Ordered By: SOWMYA INGRAM JR ? MR#: [id number] ?LOC: ??5B ? /Sex: ?? 5 (36 years), ? Female ? PROCEDURE: Urine Culture ?SOURCE: T CC ? COLLECTED: 03/16/2012 11:15 ? STARTED: 03/16/2012 14:14 ? FINAL REPORT ? Final Report ? Verified: 08:26 ? No growth (Less than 1,000 cfu/ml). ? ____ [facility] Urine specimen obtained by clean catch procedure (specimen) 03/16/2012 11:15 AM EDT 03/16/2012 2:14 PM EDT Narrative Resulting Agency Comment Spec In Lab Sowmya Ingram Jr., MD MICROBIOLOGY - GEN ERAL ORDERABLES [facility] * (ABNORMAL) Basic Metabolic Panel (non-fasting) (03/16/2012 9:21 AM EDT) Glucose 90 60 - 199 mg/dL [facility] Comment:Diabetes: >=200 mg/d L plus symptoms Blood Urea Nitrogen 11 8 - 18 mg/dL [facility] Creatinine 0.73 0.70 - 1.20 mg/dL [facility] Comment: Please note that the pediatric reference intervals supplied above were not validated at [facility]. Results from pediatric patients should be interpreted in conjunction to the patient's age, height and muscle mass. Sodium 139 135 - 145 mmol/L [facility] Potassium 3.0(Criti dalia) 3.5 - 5.0 mmol/L [facility] Comment: Called by: , Read back by: Dr. Sowmya Ingram, Date/Time:03/16/12 10:17. Please note: ??Patients with WBC >100,000 may have falsely elevated Potassium levels. ??For accurate Potassium quantification in these patients send serum separator tube (gold top) for subsequent determinations. ??Contact the Clinical Chemistry Laboratory if there are any questions. Chloride 102 98 - 107 mmol/L [facility] Carbon Dioxide 27 22 - 31 mmol/L [facility] Anion Gap 10 5 - 15 mmol/L [facility] Calcium [...] J Am Soc Nephrol;6:1963-72. Blood specimen (specimen) 03/16/2012 9:21 AM EDT 03/16/2012 9:28 AM EDT Narrative Resulting Agency Comment Spec In Lab Sowmya Ingram Jr., MD CHEMISTRY ORDERABL ES [facility] documented in this encounter Visit Diagnoses Diagnosis Calculus of kidney History of kidney stones Personal history of urinary calculi documented in this encounter Care Teams Senior Housekeeper Relationship Specialty Start Date End Date Jim Wei MD [address] [place] [address] PCP - General 07/23/10 10/08/15 [facility] [address] [address] [place] [address] Line Camera OperatorBiomedical Equipment Tech Medicine 03/26/11 documented as of this encounter
--- OUTSIDE RECORDS SUMMARY | 2024-05-27 02:35 | XMS_ITS | Encounter Summary ---
Author Organization Counts Include [facility] Address [facility] [address] [place] [address] Care Team Providers Care Tar Pot Man Name Role Phone Jim Wei MD Primary Care Provider [phone] Encounter Details Date Type Department Care Team (Late st Contact Info) Description 03/16/2012 Orders [place] [id number] Emeka Hernandez Jr., MD [facility] [place] [address] Calculus of kidney (Primary Dx) Social History [...] Results * (ABNORMAL) Basic Metabolic Panel (non-fasting) (03/16/2012 9:21 AM EDT) [facility] Glucose 90 60 - 199 mg/dL [facility] Comment:Diabetes: >=200 mg/d L plus symptoms Blood Urea Nitrogen 11 8 - 18 mg/dL [facility] Creatinine 0.73 0.70 - 1.20 mg/dL [facility] Comment: Please note that the pediatric reference intervals supplied above were not validated at [facility]. Results from pediatric patients should be interpreted in conjunction to the patient's age, height and muscle mass. Sodium 139 135 - 145 mmol/L [facility] Potassium 3.0(Criti dalia) 3.5 - 5.0 mmol/L [facility] Comment: Called by: , Read back by: Dr. Emeka Hernandez, Date/Time:03/16/12 10:17. Please note: ??Patients with WBC [...] MD CHEMISTRY ORDERABL ES Performing Organization Address City/State/[facility] Co mt Phone Number [facility] documented in this encounter Visit Diagnoses Diagnosis Calculus of kidney- Primary documented in this encounter Care Teams Tar Pot Man Relationship Specialty Start Date End Date Jim Wei MD [address] [place] [address] PCP - General 07/23/10 10/08/15 [facility] [address] [address] [place] [address] Wine PasteurizerConcept Artist Medicine 03/26/11 documented as of this encounter
--- OUTSIDE RECORDS SUMMARY | 2024-05-27 02:36 | XMS_ITS | Clinical Summary ---
Author Organization [facility] Address [address] [place] [address] Care Team Providers Care Community Service Worker Name Role Phone Angelica Murphy TINY Primary Care Provider [phone] Allergies Active Allergy Reactions Criticality Noted Date Comments Adhesive Eggplant Urinary Obstruction 06/18/2021 Lisinopril Other (See Comments) 04/24/2022 hypotension Penicillins Hives Low 01/30/2011 Medications Medication Sig Dispensed Refills Start Date End Date Status hydrochlorothiazide (HYDRODIURIL) 25 mg tablet Take 25 mg by mouth 2 times daily. Active POTASSIUM CITRATE ORAL Take 10 mEq by mouth 3 times daily. Active cyclobenzaprine (FLEXERIL) 10 mg tablet Take 10 mg by mouth 3 times daily. Active cholecalciferol, Vitamin D3, 1,000 unit tablet Take 1,000 Units by mouth daily. Active aMILoride (MIDAMOR) 5 mg tablet Take 5 mg by mouth daily. Active venlafaxine (EFFEXOR) 75 mg tablet Take 75 mg by mouth daily. Active naltrexone HCl (NALTREXONE ORAL) Take 6 mg by mouth daily. Active UNABLE TO FIND Med Name: Mitochondrial take 3 caps daily Active LORazepam (ATIVAN) 0.5 mg tablet Take 0.5 mg by mouth as needed for Anxiety. Active DULoxetine (CYMBALTA) 60 mg capsule Take 60 mg by mouth daily. Active SUMAtriptan (IMITREX) 100 mg tablet Take by mouth as needed. Active pregabalin (LYRICA) 75 mg capsule 04/22/2022 Active omega-3 fatty acids 1,000 mg capsule capsule Take 1 g by mouth daily. Active magnesium oxide (MAG-OX) 400 mg (241.3 mg magnesium) tablet TAKE ONE TABLET BY MOUTH EVERY DAY WITH MEALS 04/16/2022 Active cellulose, bulk, 100 % powder 03/14/2022 Active busPIRone (BUSPAR) 5 mg tablet Take 5 mg by mouth 2 times daily. 04/16/2022 Active oxyCODONE (ROXICODONE) 5 mg immediate release tablet Take 1 Tablet by mouth every 4 hours as needed for Pain. Daily Max: 30 mg 20 Tablet 09/12/2022 Active indomethacin (INDOCIN) 25 mg capsule Take 1 Capsule by mouth 3 times daily. 30 Capsule 09/12/2022 Active ondansetron (ZOFRAN) 4 mg tablet Take 1 Tablet by mouth daily as needed for Nausea. 10 Tablet 09/12/2022 Active methocarbamoL (ROBAXIN) 500 mg tablet Take 1 Tablet by mouth 4 times daily. 25 Tablet 09/22/2022 Active Active Problems Problem Noted Date Diagnosed Date Arthralgia of left lower leg 07/21/2022 Overview: Added automatically from request for surgery [id number] Surgical History Surgery Date Site/Laterality Comments SHOULDER SURGERY Right CARPAL TUNNEL RELEASE Right HIP ARTHROSCOPY 09/12/2022 Left Medical History Medical History Date Comments Nephrolithiasis Lyme disease Anxiety and depression Family History Medical History Relation Comments Heart Disease Mother Atrial Fibrillat ion Hypertension Mother Relation Status Comments Mother Social History Tobacco Use Types Packs/Day Years Used Date Smoking Tobacco: Never Smokeless Tobacco: Never Tobacco Cessation:Counseling Given: Not Answered Alcohol Use Standard Drinks/Week Comments Yes 0 (1 standard drink = 0.6 oz pure alcohol) Occasionally 1-2 drinks in a month Interpersonal Safety Answer Date Record ed Physically Hurt Never 08/05/2020 Verbally Threaten Not on file 08/05/2020 Sex and Gender Information Value Date Recorded Sex Assigned at Female 10/17/2020 14:51 EST Gender Identity Female 08/28/2020 15:56 EST Sexual Orientation Bisexual 10/17/2020 14 :51 EST Obstetrics History Last Filed Vital Signs Vital Sign Reading Time Taken Comments Blood Pressure 112/70 09/12/2022 1200 EST Pulse 76 09/12/2022 0655 EST Temperature 36.8 ??C (98.3 ??F) 09/12/2022 1200 EST Respiratory Rate 16 09/12/2022 1200 EST Oxygen Saturation 94% 09/12/2022 1200 EST Inhaled Oxygen Concentration - - Weight 91.4 kg (201 lb 9.6 oz) 09/12/[address] Height 162.6 cm (5' 4) 09/12/2022 0655 EST Body Mass Index 34.6 09/12/2022 0655 EST Plan of Treatment Health Maintenance Due Date Last Done Comments Hepatitis C Screen 1975 Hepatitis B Vaccine (1 of 3 - 19+ 3-dose series) 11/29 COVID-19 Vaccine (2022- season) 2023 Medical Devices Implanted Type Area Supervisor Reclamation Device Identifier Shelf Expiration Date Model / Serial / Lot [place] Suture Fiberwire 1.8mm Q Fix [id number] - [id number] Implanted:Qty : 1 on 09/12/2022 by Farzad Garza MD at [facility] [place] Left: Hip [employer] [id number] 05/29/2025 [id number] / / [id number] [place] Suture Fiberwire 1.8mm Q Fix [id number] - [id number] Implanted:Qty : 1 on 09/12/2022 by Farzad Garza MD at [facility] [place] Left: Hip [employer] [id number] 05/16/2025 [id number] / / [id number] [place] Suture Fiberwire 1.8mm Q Fix [id number] - [id number] Implanted:Qty : 1 on 09/12/2022 by Farzad Garza MD at [facility] [place] Left: Hip [employer] [id number] 05/16/2025 [id number] / / [id number] Advance Directives For more information, please contact: [phone] * Full Code (Latest Code Status on File) Date Activated Date Inactivated Comments 09/12/2022 6:39 09/12/2022 14:41 Question Answer Comments When the patient has NO PULSE: Full Code / CPR Who Made the Decision? Patient Care Teams Community Service Worker Relationship Specialty Start Date End Date [place] [address] PCP - General 08/05/21
--- OUTSIDE RECORDS SUMMARY | 2024-05-27 02:36 | XMS_ITS | Encounter Summary ---
Author Organization [facility] Address [address] [place] [address] Care Team Providers Care Salsa Dance Instructor Name Role Phone Angelica Murphy TINY Primary Care Provider [phone] Encounter Details Date Type Department Care Team (Late st Contact Info) Description 04/08/2023 Lab Requisition [facility] Pathology & Laboratory Medicine - [facility] [address] [place] [address] Outr Resulting Lab, Provider Social History Tobacco Use Types Packs/Day Years [...] Sexual Orientation Bisexual 10/17/2020 14 :51 EST documented as of this encounter Functional Status Functional Status Response Date of Assess ment Because of a physical, menta l, or emotional condition, does this person have difficulty doing errands alone such as visiting a doctor's office or shopping? Yes 08/28/2020 Cognitive Status Response Date of Assessm ent Because of a physical, menta l, or emotional condition, does this person have serious difficulty concentrating, remembering, or making decisions? Yes 08/28/2020 documented as of this encounter Plan of Treatment Not on file documented as of this encounter Procedures Procedure Name Priority Date/Time Associated Diagnosis Comments LYME AB Routine 04/08/2023 10:46 EDT documented in this encounter Results * LYME AB (04/08/2023 10:46 EDT) Lyme Ab Negative Negative 04/09/2023 10:[address] [facility] Blood VENOUS BLOOD / Unknown 04/08/2023 10:46 EDT 04/08/2023 21:35 EDT Provider Outr Resulting Lab IMMUNOLOGY A ND SEROLOGY ORDERABLES [facility] [address] [place] [address] documented in this encounter Visit Diagnoses Not on filedocumented in this encounter Care Teams Salsa Dance Instructor Relationship Specialty Start Date End Date Angelica Murphy [place] [address] [place] [address] PCP - General 08/05/21 documented as of this encounter
--- OUTSIDE RECORDS SUMMARY | 2024-05-27 02:36 | XMS_ITS | Encounter Summary ---
Author Organization [facility] Address [address] [place] [address] Care Team Providers Care Food And Nutrition Services Supervisor Name Role Phone Angelica Murphy TINY Primary Care Provider [phone] Reason for Visit * Reason Comments Chronic Pain Encounter Details Date Type Department Care Team (Latest Contact Info) Description 05/13/2022 13:[address] [facility] Comprehensive Pain Program - [address] [place] [address] Julia Montez, PhD [address] [place] [address] [address] [place] [address] Anxiety about health (Primary Dx); Adjustment disorder with anxiety Social History Tobacco Use Types Packs/Day Years [...] Sexual Orientation Bisexual 10/17/2020 14 :51 EST COVID-19 Exposure Response Date Recorded In the last 10 days, have yo u been in contact with someone who was confirmed or suspected to have Coronavirus/COVID-19? No / Unsure 04/24/2022 10:59 EDT documented as of this encounter Functional Status [...] Yes 08/28/2020 documented as of this encounter Miscellaneous Notes * Group Note - Julai Montez, PhD - 05/13/2022 2245 EDT Date: 05/13/2022 Start Time: 13:15 End Time: 14:45 [facility] Session 12 of 12 COMMENCEMENT 90-minute group Number of participants: 5 (5 in person and 0 virtual) Topic: Continuing Your Journey Session Goals: 1. Celebrate Committed Action in past week and troubleshoot barriers 2. Compare two letters to pain written at beginning and end of program 3. Review elements of program that were helpful and changes experienced 4. Share short-term SMART goals with group 5. Acknowledge Endings - Celebrate Continuations Individual Notes: Arrival: prompt Participation throughout session: engaged Compared Letters to Pain written today at the end of the program to letters written at week one. Acknowledged feeling more hope. Plan moving forward includes keep on track in. She realized it has been helpful to recognize the way she contributes in her household despite having pain. 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 She hopes to return to work perhaps at some point as well. Reflected on the program, discussing elements that were meaningful. Explored thoughts and feelings about the group ending. Diagnostic impression: ICD-10-CM ICD-9-CM 1. Anxiety about health F41.8 300.09 2. Adjustment disorder with anxiety F43.22 309.24 Rationale for frequency and duration of therapy: Barbi successfully completed the [facility] Living portion of treatment at the [facility]. Alumni group sessions are offered as part of ongoing follow-up, and they were encouraged to participate to maintain momentum gained during the past 12 weeks. Given list of individual Recommendations from our Integrative Team provided in writing, along with a list of community resources. Was encouraged to schedule a momentum meeting at [facility], if not already completed, to assist in the transition back to the primary residential. Ongoing Home Practice: ??? Review Momentum Plan Workbook ??? Use My GamePlan Civil Structural Designer to set specific goals and track related activities ??? Schedule one-on-one health coaching session to help complete GamePlan Civil Structural Designer and/or Momentum Plan Workbook ??? Bring Momentum Plan Workbook to share with your primary care physician ??? Practice relaxation training and/or mindfulness at least once a day ??? Practice your favorite mental yoga techniques to unhook from unhelpful thoughts ??? Refer to the book, Living Beyond Your Pain, as a reminder of what we covered ??? Attend monthly alumni sessions to maintain momentum and receive support documented in this encounter Plan of Treatment Not on file documented as of this encounter Visit Diagnoses Diagnosis Anxiety about health- Primary Adjustment disorder with anxiety documented in this encounter Care Teams Food And Nutrition Services Supervisor Relationship Specialty Start Date End Date Angelica Murphy [place] [address] PCP - General 08/05/21 documented as of this encounter
--- OUTSIDE RECORDS SUMMARY | 2024-05-27 02:36 | XMS_ITS | Encounter Summary ---
Author Organization [facility] Address [address] [place] [address] Care Team Providers Care Sr. Operations Manager Name Role Phone Angelica Murphy TINY Primary Care Provider [phone] Reason for Visit * Auth/Cert (Routine) Specialty Diagnoses / Procedures Referred By Stephanie price Referred To Contact Diagnoses Arthralgia of left lower leg Arthralgia of left lower leg [M25.562] Procedures GA ARTHROSCOPY HIP W/LABRAL REPAIR GA ARTHROSCOPY HIP W/ACETABULOPLASTY GA HIP SCOPE/REMV BODY,SYNOVECTOMY GA HIP SCOPE/REMV BODY,PLASTY/RESECTN ARTHROSCOPY W/ LABRAL REPAIR ARTHROSCOPY HIP W/ACETABULOPLASTY ARTHROSCOPY, HIP, SURGICAL; W/SYNOVECTOMY CHONDROPLASTY, HIP, ARTHROSCOPIC Referral ID Status Reason Start Date Expiration Date Visits Re quested Visits Authorized [id number] 1 1 Encounter Details Date Type Department Care Team (Late st Contact Info) Description 09/12/2022 7:30 EST - 09/12/2022 9:50 EST Surgery [facility] [place] [facility] [place] [address] [place] [address] Farzad Garza MD [address] [facility] [address] [place] [id number] ARTHROSCOPY W/ LABRAL REPAIR [22275 (CPT??)] Surgery Details Date/Time Status Location OR Service Patient Class Case Cl ass Case Type Trauma Case? 09/12/22 0730 Posted [facility] [place] [facility] H - Elective Panel 1 Procedure LRB Anes Op Region Wound Class Comments ARTHROSCOPY W/ LABRAL REPAIR Left General Hip C lass I/ Clean ARTHROSCOPY HIP W/ACETABULOPLASTY Left General Hip Class I/ Clean ARTHROSCOPY, HIP, SURGICAL; W/SYNOVECTOMY Left General Hip Class I/ Clean CHONDROPLASTY, HIP, ARTHROSCOPIC Left General Hip Class I/ Clean Surgeon Surgeon Role Service Panel Farzad Garza MD Primary Orthopedics 1 Special Needs [facility] documented in this encounter Social History Tobacco [...] suspected to have Coronavirus/COVID-19? No / Unsure 09/12/2022 6:50 EST documented as of this encounter Last Filed Vital Signs Vital Sign Reading Time Taken Comments Blood Pressure 123/79 09/12/2022 0945 EST Pulse 76 09/12/2022 0655 EST Temperature 36.1 ??C (97 ??F) 09/12/2022 0908 EST Respiratory Rate 18 09/12/2022 0945 EST Oxygen Saturation 94% 09/12/2022 0945 EST Inhaled Oxygen Concentration - - Weight 91.4 kg (201 lb 9.6 oz) 09/12/[address] Height 162.6 cm (5' 4) 09/12/2022 0655 EST Body Mass Index 34.6 09/12/2022 0655 EST documented in this encounter Functional Status Functional Status Response [...] Yes 08/28/2020 documented as of this encounter Discharge Instructions * Discharge Instructions* Farzad Garza MD - 09/12/2022 7:18 EST Operative Hip Arthroscopy Patient Information Packet Post-Operative Care Instructions In this packet, we have complied some information to make your recovery easier after surgery. If you have any questions, please don't hesitate to call the office and we will try our best to answer your questions are quickly and completely as possible. Medications You will be provided with specific prescriptions for medications at your pre- operative appointment.These medications may include specific pain medications, medications to relieve muscle spasm, anxiety, and insomnia, nausea, and medication to help prevent blood clots. In all cases, please take these medications according to the respective instructions. Post-Operative medications Medication Dosage Frequency Reason Oxycodone 5mg 1-2 tab per 3-4 hours Pain Robaxin 500mg 1-2 tabs per 6 hours Muscle spasm Ondansetron (Zofran) 4mg 1 per 6-8 hours Nausea Indomethacin 25mg 3 tabs per day 10 days HO/DVT prevention Aspirin 325mg Daily DVT prevention Acetaminophen (Tylenol) 500mg 1-2 tabs per 8 hours DVT prevention Prescription pain Medication Take this medication with food and water. Please do not: Mix with alcohol or marijuana Drive while taking prescription pain medication Take any additional Tylenol if on Vicodin, Percocet, or Wing unless instructed to by a doctor No more than 3000mg (3g) of Tylenol per 24 hour period Post-Operative Care Instructions Crutch Use Foot flat weight bearing (about 20lbs of weight) for 21 days (3 weeks) with crutches Your physical therapist will assist you with these post-operative instructions and a doing weaning from the crutches after the above-noted period of time Hip Brace Is recommended that you wear a hip brace for 3 weeks to protect the hip repair. You need to wear the brace while walking and up and active. You do not need to wear the brace when lying down, sleeping, laying on your stomach, showering (once off pain medication and confident in weight bearing restriction compliance) Range of Motion restrictions The postoperative hip brace will protect the labral repair and additional surgical procedures from the extremes of range of motion. aCTIVE fOOT/calf Pumps 10 up and down pumps of feet every hour while awake. Please perform these particularly when at rest, in a vehicle, or on an airplane Breathing Exercises You will be provided with an incentive spirometer after surgery. Please use this to perform 10 deep breaths every hour while awake. Icing AND eLEVATION Ice your hip, particularly in the first several weeks. Icing may be performed by applying ice in a 30 minutes on/off pattern. Always have a protective layer between your skin and the ice. Elevation of the leg aids in preventing swelling and with pain control. Dressing Changes / SHowering Leave bulky dressing in pace for at least 72 hours, do not shower for this period of time May remove after this period, leave tegaderm dressing in place May shower, do not scrub dressing/incision May remove tegaderm at one week postoperatively, shower, leave incision open to air Steri-strips will fall off on own; please do not scrub wound; no lotions/ointments Sutures Removable sutures or rosy If these were used to close your incision, they will be removed at 10-14 days from surgery during your first follow-up appointment. Please do not try to remove them on your own unless instructed to do so. physical therapy You will be provided with a physical therapy prescription. Please contact us if questions It is extremely important to remain complaint with the instructions. Physical therapy typically begins in the first few days after surgery. fOLLOW-UP aPPOINTMENTS You will be scheduled for a follow-up appointment prior to your surgery. If this has not been done,please contact the office to schedule your appointment. At this visit, your surgeon and the staff will ensure that the incision is healing well, will remove sutures if necessary, will review post-operative instructions and operative findings, and answer any and all questions that you may have. Questions / Problems Call our office or present to your primary doctor or an emergency room if the following occur: Fever (greater than 101.8 degrees F), chills, sweats Non-clear drainage from the incision and/or significant redness surrounding incision Calf swelling, redness, pain, chest pain, difficulty breathing documented in this encounter Medications at Time of Discharge Medication Sig Dispensed Refills Start Date End Date aMILoride (MIDAMOR) 5 mg tablet Take 5 mg by mouth daily. busPIRone (BUSPAR) 5 mg tablet Take 5 mg by mouth 2 times daily. 04/16/2022 cellulose, bulk, 100 % powder 03/14/2022 cholecalciferol, Vitamin D3, 1,000 unit tablet Take 1,000 Units by mouth daily. cyclobenzaprine (FLEXERIL) 10 mg tablet Take 10 mg by mouth 3 times daily. DULoxetine (CYMBALTA) 60 mg capsule Take 60 mg by mouth daily. hydrochlorothiazide (HYDRODIURIL) 25 mg tablet Take 25 mg by mouth 2 times daily. indomethacin (INDOCIN) 25 mg capsule Take 1 Capsule by mouth 3 times daily. 30 Capsule 09/12/2022 LORazepam (ATIVAN) 0.5 mg tablet Take 0.5 mg by mouth as needed for Anxiety. magnesium oxide (MAG-OX) 400 mg (241.3 mg magnesium) tablet TAKE ONE TABLET BY MOUTH EVERY DAY WITH MEALS 04/16/2022 naltrexone HCl (NALTREXONE ORAL) Take 6 mg by mouth daily. omega-3 fatty acids 1,000 mg capsule capsule Take 1 g by mouth daily. ondansetron (ZOFRAN) 4 mg tablet Take 1 Tablet by mouth daily as needed for Nausea. 10 Tablet 09/12/2022 oxyCODONE (ROXICODONE) 5 mg immediate release tablet Take 1 Tablet by mouth every 4 hours as needed for Pain. Daily Max: 30 mg 20 Tablet 09/12/2022 POTASSIUM CITRATE ORAL Take 10 mEq by mouth 3 times daily. pregabalin (LYRICA) 75 mg capsule 04/22/2022 SUMAtriptan (IMITREX) 100 mg tablet Take by mouth as needed. UNABLE TO FIND Med Name: Mitochondrial take 3 caps daily venlafaxine (EFFEXOR) 75 mg tablet Take 75 mg by mouth daily. aspirin 325 mg tablet Take 1 Tablet by mouth daily for 14 days. Begin after indomethicin completes 14 Tablet 09/12/2022 09/26/2022 methocarbamoL (ROBAXIN) 500 mg tablet Take 1 Tablet by mouth 4 times daily. 25 Tablet 09/12/2022 09/22/2022 documented as of this encounter Ordered Prescriptions Prescription Sig Dispensed Refills Start Date End Da te ondansetron (ZOFRAN) 4 mg tablet Take 1 Tablet by mouth daily as needed for Nausea. 10 Tablet 09/12/2022 indomethacin (INDOCIN) 25 mg capsule Take 1 Capsule by mouth 3 times daily. 30 Capsule 09/12/2022 oxyCODONE (ROXICODONE) 5 mg immediate release tablet Take 1 Tablet by mouth every 4 hours as needed for Pain. Daily Max: 30 mg 20 Tablet 09/12/2022 aspirin 325 mg tablet Take 1 Tablet by mouth daily for 14 days. Begin after indomethicin completes 14 Tablet 09/12/2022 09/26/2022 methocarbamoL (ROBAXIN) 500 mg tablet Take 1 Tablet by mouth 4 times daily. 25 Tablet 09/12/2022 09/22/2022 documented in this encounter Discharge Disposition Disposition Code Departure Means Destination Home or Self [facility] documented in this encounter H&P Notes * Farzad Garza MD - 09/12/2022 0741 EST The preoperative history and physical which was performed within 30 days of this procedure has been reviewed and the clinically appropriate elements of the physical examination have been repeated. There are no changes to the documented history and physical or if so such changes are documented below General Exam: GENERAL APPEARANCE: no acute distress, pleasant, cooperative. CHEST: normal shape and expansion. HEART: regular rate and rhythm, no murmurs. LUNGS: clear to auscultation, unlabored. ABDOMEN: no deformity, distention, no obvious distress Farzad Garza MD 09/12/2022 7:41 Source Note - Farzad Garza MD - 09/12/2022 7:12 EST The patient presents today for reevaluation. Over the interval, diagnostic and therapeutic injection was placed. The patient temporary good relief from this injection but her symptoms have returned. Please see prior notes for full HPI. Is interested in surgery at this time given that she has failedimprove or prolonged nonoperative management. ?? She continues to have pain localized over the posterior lateral aspect of the left hip, the deep gluteal region, as well as the deep anterior groin region. ??MRI has been obtained over the interval and is suspicious for labral tear as well as wear at the chondral labral junction. ?? A 10-point review of systems has been reviewed and all are negative unless noted above. ?? Past Medical History: Diagnosis Date ??? Anxiety and depression ? Lyme disease ? Nephrolithiasis ? Social History ?? Tobacco Use ??? Smoking status: Never ??? Smokeless tobacco: Never Substance Use Topics ??? Alcohol use: Yes ? Comment: Occasionally 1-2 drinks in a month ?? Past Surgical History: Procedure Laterality Date ??? CARPAL TUNNEL RELEASE Right ? SHOULDER SURGERY Right ? Allergies Allergen Reactions ??? Adhesive ? Eggplant Urinary Obstruction ??? Lisinopril Other (See Comments) ? hypotension ??? Penicillins Hives ?? Medications Prior to Today's Visit Medication Sig ??? aMILoride (MIDAMOR) 5 mg tablet Take 5 mg by mouth daily. ??? busPIRone (BUSPAR) 5 mg tablet Take 5 mg by mouth 2 times daily. ??? cellulose, bulk, 100 % powder ? cholecalciferol, Vitamin D3, 1,000 unit tablet Take 1,000 Units by mouth daily. ??? cyclobenzaprine (FLEXERIL) 10 mg tablet Take 10 mg by mouth 3 times daily. ??? DULoxetine (CYMBALTA) 60 mg capsule Take 60 mg by mouth daily. ??? hydrochlorothiazide (HYDRODIURIL) 25 mg tablet Take 25 mg by mouth 2 times daily. ??? LORazepam (ATIVAN) 0.5 mg tablet Take 0.5 mg by mouth as needed for Anxiety. ??? magnesium oxide (MAG-OX) 400 mg (241.3 mg magnesium) tablet TAKE ONE TABLET BY MOUTH EVERY DAY WITH MEALS ??? naltrexone HCl (NALTREXONE ORAL) Take 6 mg by mouth daily. (Patient not taking: No sig reported) ??? omega-3 fatty acids 1,000 mg capsule capsule Take 1 g by mouth daily. ??? POTASSIUM CITRATE ORAL Take 10 mEq by mouth 3 times daily. ??? pregabalin (LYRICA) 75 mg capsule ? SUMAtriptan (IMITREX) 100 mg tablet Take by mouth as needed. ??? UNABLE TO FIND Med Name: Mitochondrial take 3 caps daily ??? venlafaxine (EFFEXOR) 75 mg tablet Take 75 mg by mouth daily. (Patient not taking: No sig reported) ?? No facility-administered medications prior to visit. ? OBJECTIVE: LMP 08/28/2017 On physical exam, the patient is found to be an alert and cooperative female who appears to be alert and oriented x 3. She is well-developed, well-nourished and in no significant distress. Breathing is unlabored. Skin is warm pink and dry to inspection and palpation. ?? Left hip: Overlying skin intact. ??No gross deformity. ??Mild tenderness palpation over the greatertrochanteric bursa, which the patient reports is much improved from prior examinations. ??Mild tenderness palpation of the iliopsoas. ??Positive anterior impingement sign. ??Positive FADIR/mildly positive??TAMEKA. ??Distally neurovascular intact throughout ?? MRI again reviewed which demonstrates an anterior superior labral tear ?? ASSESSMENT: Left hip BETTIE and labral tear ?? PLAN: ?? This patient has met my surgical selection criteria. A supervised course of conservative treatment to include modification of activities for over 6 months, physical therapy, and nonsteroidal anti-inflammatories without improvement has been met. The patient exhibits pain in the groin upon physical examination that interferes with activities of daily living. They have a positive anterior impingement test.I have recommended hip arthroscopy for this patient. The outline of the surgical procedure, surgical risks, benefits and postoperative recovery course were outlined in detail using models and/or an animation video. We discussed: bleeding, infection, blood clots, scar formation, persistent pain, stiffness, bursitis, LFCN and pudental nerve palsy, need for further surgery, anesthetic risk and/or medical complications. Questions were solicited and answered. The patient verbalized understanding of the above and surgical consent was signed. The patient was given a referral for physical therapy and a post-operative protocol for their procedure. Patient understands the expectations around post- operative physical therapy and that this is an important component of their recovery. They were instructed to schedule their first post-operativeappointment prior to the day of surgery. They were instructed that this should be scheduled for 1-2days from the date of surgery. The patient is being prescribed a prescription opioid for the treatment of acute post-operative pain related to this surgery. The patient has been advised to take the smallest dose possible to control their pain and as their pain improves to take smaller doses and increase the time between doses inorder to wean off this medication. In addition to this medication, non-opioid medications have beenprescribed for adjunct treatment of their pain. Non-pharmacological treatment such as ice, elevation and activity modification have been recommended as appropriate. The Acute Opioid Informed Consent form has been completed and sent to medical records for scanning to chart * Farzad Garza MD - 09/12/2022 0712 EST The patient presents today for reevaluation. Over the interval, diagnostic and therapeutic injection was placed. The patient temporary good relief from this injection but her symptoms have returned. Please see prior notes for full HPI. Is interested in surgery at this time given that she has failedimprove or prolonged nonoperative management. ?? She continues to have pain localized over the posterior lateral aspect of the left hip, the deep gluteal region, as well as the deep anterior groin region. ??MRI has been obtained over the interval and is suspicious for labral tear as well as wear at the chondral labral junction. ?? A 10-point review of systems has been reviewed and all are negative unless noted above. ?? Past Medical History: Diagnosis Date ??? Anxiety and depression ? Lyme disease ? Nephrolithiasis ? Social History ?? Tobacco Use ??? Smoking status: Never ??? Smokeless tobacco: Never Substance Use Topics ??? Alcohol use: Yes ? Comment: Occasionally 1-2 drinks in a month ?? Past Surgical History: Procedure Laterality Date ??? CARPAL TUNNEL RELEASE Right ? SHOULDER SURGERY Right ? Allergies Allergen Reactions ??? Adhesive ? Eggplant Urinary Obstruction ??? Lisinopril Other (See Comments) ? hypotension ??? Penicillins Hives ?? Medications Prior to Today's Visit Medication Sig ??? aMILoride (MIDAMOR) 5 mg tablet Take 5 mg by mouth daily. ??? busPIRone (BUSPAR) 5 mg tablet Take 5 mg by mouth 2 times daily. ??? cellulose, bulk, 100 % powder ? cholecalciferol, Vitamin D3, 1,000 unit tablet Take 1,000 Units by mouth daily. ??? cyclobenzaprine (FLEXERIL) 10 mg tablet Take 10 mg by mouth 3 times daily. ??? DULoxetine (CYMBALTA) 60 mg capsule Take 60 mg by mouth daily. ??? hydrochlorothiazide (HYDRODIURIL) 25 mg tablet Take 25 mg by mouth 2 times daily. ??? LORazepam (ATIVAN) 0.5 mg tablet Take 0.5 mg by mouth as needed for Anxiety. ??? magnesium oxide (MAG-OX) 400 mg (241.3 mg magnesium) tablet TAKE ONE TABLET BY MOUTH EVERY DAY WITH MEALS ??? naltrexone HCl (NALTREXONE ORAL) Take 6 mg by mouth daily. (Patient not taking: No sig reported) ??? omega-3 fatty acids 1,000 mg capsule capsule Take 1 g by mouth daily. ??? POTASSIUM CITRATE ORAL Take 10 mEq by mouth 3 times daily. ??? pregabalin (LYRICA) 75 mg capsule ? SUMAtriptan (IMITREX) 100 mg tablet Take by mouth as needed. ??? UNABLE TO FIND Med Name: Mitochondrial take 3 caps daily ??? venlafaxine (EFFEXOR) 75 mg tablet Take 75 mg by mouth daily. (Patient not taking: No sig reported) ?? No facility-administered medications prior to visit. ? OBJECTIVE: [facility] 08/28/2017 On physical exam, the patient is found to be an alert and cooperative female who appears to be alert and oriented x 3. She is well-developed, well-nourished and in no significant distress. Breathing is unlabored. Skin is warm pink and dry to inspection and palpation. ?? Left hip: Overlying skin intact. ??No gross deformity. ??Mild tenderness palpation over the greatertrochanteric bursa, which the patient reports is much improved from prior examinations. ??Mild tenderness palpation of the iliopsoas. ??Positive anterior impingement sign. ??Positive FADIR/mildly positive??TAMEKA. ??Distally neurovascular intact throughout ?? MRI again reviewed which demonstrates an anterior superior labral tear ?? ASSESSMENT: Left hip BETTIE and labral tear ?? PLAN: ?? This patient has met my surgical selection criteria. A supervised course of conservative treatment to include modification of activities for over 6 months, physical therapy, and nonsteroidal anti-inflammatories without improvement has been met. The patient exhibits pain in the groin upon physical examination that interferes with activities of daily living. They have a positive anterior impingement test.I have recommended hip arthroscopy for this patient. The outline of the surgical procedure, surgical risks, benefits and postoperative recovery course were outlined in detail using models and/or an animation video. We discussed: bleeding, infection, blood clots, scar formation, persistent pain, stiffness, bursitis, LFCN and pudental nerve palsy, need for further surgery, anesthetic risk and/or medical complications. Questions were solicited and answered. The patient verbalized understanding of the above and surgical consent was signed. The patient was given a referral for physical therapy and a post-operative protocol for their procedure. Patient understands the expectations around post- operative physical therapy and that this is an important component of their recovery. They were instructed to schedule their first post-operativeappointment prior to the day of surgery. They were instructed that this should be scheduled for 1-2days from the date of surgery. The patient is being prescribed a prescription opioid for the treatment of acute post-operative pain related to this surgery. The patient has been advised to take the smallest dose possible to control their pain and as their pain improves to take smaller doses and increase the time between doses inorder to wean off this medication. In addition to this medication, non-opioid medications have beenprescribed for adjunct treatment of their pain. Non-pharmacological treatment such as ice, elevation and activity modification have been recommended as appropriate. The Acute Opioid Informed Consent form has been completed and sent to medical records for scanning to chart documented in this encounter OR Notes * OR Surgeon - Farzad Garza MD - 09/12/2022 0934 EST OPERATIVE REPORT PATIENT NAME: Barbi Ivey DATE OF : 73 SURGEON: Latrice Garza MD BROADCAST ENGINEER: Taylor Tovar DATE OF SURGERY: 09/12/22 PREOPERATIVE DIAGNOSIS: 1. Left hip femoral acetabular impingement 2. Left hip labral tear 3. Left hip chondromalacia 4. Leftt hip synovitis POSTOPERATIVE DIAGNOSIS: 1. Left hip femoral acetabular impingement 2. Left hip labral tear 3. Left hip chondromalacia at the chondral labral junction associated with labral tear 4. Left hip diffuse grade I chondromalacia in the parafoveal weightbearing area of the femoral head 5. Left hip synovitis 6. Left hip ligamentum teres fraying PROCEDURES PERFORMED: 1. Left hip labral repair with three suture anchors 2. Left hip labral debridement 3. Left hip arthroscopic acetabuloplasty 4. Left hip acetabular chondroplasty at the regional labral tear 5. Left hip partial synovectomy 6. Left hip parallel capsulotomy capsular closure ANESTHESIA: General IVF: Please see anesthesia report EBL: Minimal TRACTION TIME: 45 Minutes SPECIMENS: None DRAINS: None IMPLANTS: S&N 1.8mm Q fix anchors x 3 DISPOSITION: Stable to PACU INDICATIONS FOR PROCEDURE: The patient is a pleasant 46 year-old who presents with a chief complaint of chronic left hip pain.This is failed to improve with prolonged nonoperative management. They were diagnosed with clinicalfemoral acetabular impingement as well as a labral tear. They were offered surgery and elected to proceed. The risks and benefits of the procedure were discussed in detail with the patient who voicedtheir understanding and elected to proceed with surgery. Written informed consent was obtained. PROCEDURE IN DETAIL: The patient was met in the preoperative holding area where the consent was again reviewed. They voiced understanding elected to proceed. The left lower extremity was marked with ink. They brought to the operating room where general anesthesia was induced without complication. They are positioned karo hip arthroscopy table. The operative side arm was brought over the chest and well-padded to avoidany pressure points or tension on the shoulder. The nonoperative side arm was rested in a well-padded arm board. A well-padded perineal post was placed and bilateral feet wrapped in cotton padding and foam boots in place securely in the traction boots. Then, the operative leg was abductor and traction was applied. It was then a deducted to distract femoral head from the acetabulum. This was confirmed with a vacuum sign on intraoperative fluoroscopy. Landmarks were drawn in the operative hip. The operative hip was prepped and draped in the usual standard sterile fashion. An orthopedic timeout was conducted to confirm correct patient name, operative site and procedure be performed. Antibiotics were infused. We began the procedure by establishing a standard anterolateral arthroscopic portal. This was performed under intraoperative fluoroscopic guidance. The skin was incised with an 11 blade scalpel just anterior and distal to the tip of the greater trochanter and a spinal needle was advanced into the joint. Insufflation of approximately 20 mL of sterile saline with good return confirmed the intra-articular position of the needle. Next, a nitinol wire was passed through the spinal needle and a cannula was passed over the guidewire and into the hip joint. The arthroscope was placed into the joint using the anterior lateral portal. Next, the anterior triangular interval was identified under dry arthroscopy. Using intraoperative fluoroscopic guidance as well as arthroscopic visualization, the mid anterior portal was created in asimilar fashion. The arthroscope was then placed through the mid anterior portal to visualize the en try point of the anterior lateral portal compartment was not the labrum. Arthroscopic fluid was then turned on. A parallel capsulotomy was performed with the [place] blade approximately 1 cm distal labrum to connect the mid anterior and anterolateral arthroscopic portals. Care was taken to avoid cutting the iliofemoral ligament. OPERATIVE FINDINGS: There was a labral tear from approximately the 10:00 o'clock to 12:00 o'clock positions. There is alocalized pincer deformity. There is no significant cam based impingement. There was an area of chondromalacia and wave sign at the chondral labral junction. There was diffuse grade I chondromalacia in the parafoveal region of the femoral head. There was significant synovitis throughout the joint. There was synovitis as well as fraying of the ligamentum teres. No loose bodies were identified. ACETABULOPLASTY FOR PINCER LESION: The hip was evaluated in the interval between the proximal capsule and labrum was developed using mechanical shaver and radiofrequency probe. This exposed the acetabular rim from approximately the 11:00 to 3 o'clock position. An acetabuloplasty was performed with 4.5 mm bur to completely eliminate the localized pincer lesion. ACETABULAR CHONDROPLASTY: Regarding the above-noted chondral wear, a combination mechanical shaver and radiofrequency wand were utilized to perform an acetabular chondroplasty back to a stable margin. LABRAL DEBRIDEMENT: Labral debridement was performed using a combination of a radiofrequency probe and a mechanical shaver. There is minimal debridement and appropriate tissue volume for a repair at the conclusion of the debridement. LABRAL REPAIR: A three anchor labral repair was performed. This was performed with 1.8 mm Q fix anchors. These were placed around the labrum and a loop fashion. Arthroscopic knots were tied. There is anatomic reduction of the labrum to the acetabulum without significant eversion or inversion. SYNOVECTOMY: Using the radiofrequency device and mechanical shaver, partial synovectomy was performed to remove the regions of inflamed tissue throughout the hip joint condyloid fossa. At this point, traction was let down and under dynamic examination the labrum appeared to be stablewithout motion. There is no significant cam based impingement or deformity identified. CAPSULAR CLOSURE: Attention at this time was turned capsular closure. Sutures were passed through the capsular leaflets. Arthroscopic knots were tied. This provided excellent reduction and fixation of the capsule. Attention was then turned to wound closure. All wounds were thoroughly irrigated. They are closed in layered fashion with 2-0 Vicryl suture and 3-0 nylon stitch. Sterile dressings were applied. The patient was placed in a brace. There woke from anesthesia without complication. All sponge and needle counts were correct at the end the case. A skilled first officer was necessary to complete the procedure in a technically safe and efficient manner. POSTOPERATIVE PLAN: The patient will be foot flat weightbearing on the affected extremity. They were provided with all necessary postoperative instructions, follow-up information, and medications. It is our expectation that we will see the patient back in the office in 10 to 14 days, or earlier if there are any concerns. * Preprocedure Instructions - Sandra Almonte RN - 09/10/2022 1117 EST Pre-procedure instructions reviewed with patient. Patient able to verbalize good understanding of information as presented. * Preprocedure Instructions - Sandra Almonte RN - 09/10/2022 1100 EST Barbi Stephani Ivey has been instructed as follows regarding medication administration for the day of the scheduled procedure. Date of Surgery: 09/11/22 Instructions for Taking Medications Day of Surgery Medication Dose and frequency Last Dose Hold Day of Surgery Take Day of Surgery aMILoride (MIDAMOR) 5 mg tablet Take 5 mg by mouth daily. hold busPIRone (BUSPAR) 5 mg tablet Take 5 mg by mouth 2 times daily. take cellulose, bulk, 100 % powder hold cholecalciferol, Vitamin D3, 1,000 unit tablet Take 1,000 Units by mouth daily. hold cyclobenzaprine (FLEXERIL) 10 mg tablet Take 10 mg by mouth 3 times daily. take DULoxetine (CYMBALTA) 60 mg capsule Take 60 mg by mouth daily. take hydrochlorothiazide (HYDRODIURIL) 25 mg tablet Take 25 mg by mouth 2 times daily. hold LORazepam (ATIVAN) 0.5 mg tablet Take 0.5 mg by mouth as needed for Anxiety. As needed magnesium oxide (MAG-OX) 400 mg (241.3 mg magnesium) tablet TAKE ONE TABLET BY MOUTH EVERY DAY WITHMEALS Takes at night naltrexone HCl (NALTREXONE ORAL) Take 6 mg by mouth daily. Patient not taking: No sig reported No longer taking omega-3 fatty acids 1,000 mg capsule capsule Take 1 g by mouth daily. hold POTASSIUM CITRATE ORAL Take 10 mEq by mouth 3 times daily. hold pregabalin (LYRICA) 75 mg capsule take SUMAtriptan (IMITREX) 100 mg tablet Take by mouth as needed. As needed UNABLE TO FIND Med Name: Mitochondrial take 3 caps daily Not taking venlafaxine (EFFEXOR) 75 mg tablet Take 75 mg by mouth daily. Patient not taking: No sig reported take documented in this encounter Miscellaneous Notes * Brief Op Note - Farzad Garza MD - 09/12/2022 0930 EST Date: 09/12/2022 [place] [facility] [place]: Barbi Ivey, : 1975, Diagnosis Pre-Op Diagnosis Codes: * Arthralgia of left lower leg [M25.562] Post-op Diagnosis * Arthralgia of left lower leg [M25.562] Procedures * ARTHROSCOPY W/ LABRAL REPAIR * ARTHROSCOPY HIP W/ACETABULOPLASTY * ARTHROSCOPY, HIP, SURGICAL; W/SYNOVECTOMY * CHONDROPLASTY, HIP, ARTHROSCOPIC Surgeons * Farzad Garza MD - Primary Procedure Summary Anesthesia: General ASA: II Estimated Blood Loss: No Blood Loss Documented Total IV Fluids: as per anesthesia report mL LDAs: Peripheral IV 09/12/22 0723 Posterior;Right Hand (Active) Wound 09/12/22 Incision Anterior;Left Hip Full thickness (Active) [REMOVED] Non-Surgical Airway (Removed) Implants Type Name Action Serial No. [place] ANCHOR SUTURE FIBERWIRE 1.8MM Q FIX [id number] - [id number] Implanted [place] ANCHOR SUTURE FIBERWIRE 1.8MM Q FIX [id number] - [id number] Implanted [place] ANCHOR SUTURE FIBERWIRE 1.8MM Q FIX [id number] - [id number] Implanted Staff: Content Production Specialist: Kecia Walters RN Nurse Staff Industrial: Azalea Erickson Relief Content Production Specialist: Stefania Meraz RN OR TECH: Brenna Hoyt Hotel Valet Attendant: Taylor Tovar Indications: Barbi Ivey is an 46 y.o. female who is having surgery for Arthralgia of left lower leg [M25.562] Findings: as per operative dictation Complications: None; patient tolerated the procedure well. Disposition: PACU - hemodynamically stable. Condition: stable Specimens Collected: No specimens collected during this procedure. Attending Attestation: I was present and scrubbed for the entire procedure Farzad Garza MD documented in this encounter Plan of Treatment Not on file documented as of this encounter Procedures Procedure Name Priority Date/Time Associated Diagnosis Comments ECG REPORT - SCANNED 09/17/2022 12:29 EST CHONDROPLASTY, HIP, ARTHROSCOPIC 09/12/2022 7:27 EST Arthralgia of left lower leg Special Needs [place] ARTHROSCOPY, HIP, SURGICAL; W/SYNOVECTOMY 09/12/2022 7:27 EST Arthralgia of left lower leg Special Needs [place] ARTHROSCOPY HIP W/ACETABULOPLASTY 09/12/2022 7:27 EST Arthralgia of left lower leg Special Needs [place] ARTHROSCOPY W/ LABRAL REPAIR 09/12/2022 7:27 EST Arthralgia of left lower leg Special Needs [place] documented in this encounter Results * ECG REPORT - SCANNED (09/17/2022 12:29 EST) 09/17/2022 12:2 9 EST Scan 2 Lawn Sprinkler Servicer PROCEDURE/MINOR JIGAR GICAL ORDERABLES documented in this encounter Visit Diagnoses Diagnosis Arthralgia of left lower leg- Primary Pain in joint, lower leg Arthralgia of left lower leg Pain in joint, lower leg documented in this encounter Admitting Diagnoses Diagnosis Arthralgia of left lower leg Pain in joint, lower leg documented in this encounter Administered Medications Inactive Administered Medications - up to 3 most recent administrations Medication Order MAR Action Action Date Dose Rate Site acetaminophen (TYLENOL) tablet 975 mg 975 mg (rounded from 1,000 mg), oral, PRE-OP ONCE, 1 dose, On Thu09/12/22 at 0700, Routine, Preprocedure Given 09/12/2022 7:25 EST 975 mg bupivacaine HCl 0.5 % (5 mg/mL) injection PRN, Starting on Thu09/12/22 at 0817, Until Thu09/12/22 at 0907, Routine, Intraprocedure Given 09/12/2022 8:17 EST 10 mL Left H ip chlorhexidine gluconate 2 % cloth 1 Each 1 Each, topical, PRE-OP MULTIPLE, Starting on Thu09/12/22 at 0639, Until Thu09/12/22 at 0907, Other, Routine, Preprocedure Given 09/12/2022 7:35 EST 1 Each Left Hip diazePAM (VALIUM) tablet 5 mg 5 mg, oral, PRE-OP ONCE, 1 dose, On Thu09/12/22 at 0700, Routine, Preprocedure Given 09/12/2022 7:31 EST 5 mg diphenhydrAMINE (BENADRYL) injection 6.25 mg 6.25 mg, intravenous, ONCE PRN, 1 dose, Starting on Thu09/12/22 at 0916, Until Thu09/12/22 at 1436, Nausea/Vomiting, Routine, Recovery (only) fentaNYL citrate (PF) injection 50 mcg 50 mcg, intravenous, EVERY 5 MIN PRN, Starting on Thu09/12/22 at 0916, Until Thu09/12/22 at 1436, Pain, Moderate-Severe Pain (Scale 4-10), Routine, Recovery (only) Given 09/12/2022 10:21 EST 50 mcg glycopyrrolate (ROBINUL) injection 0.2 mg 0.2 mg, intravenous, EVERY 3 MINUTES PRN, Starting on Thu09/12/22 at 0916, Until Thu09/12/22 at 1436, BRADYCARDIA, Routine, Recovery (only) HYDROmorphone (PF) (DILAUDID) 0.5 mg/0.5 mL syringe 0.5 mg 0.5 mg, intravenous, EVERY 5 MIN PRN, Starting on Thu09/12/22 at 0916, Until Thu09/12/22 at 1436, Pain, Moderate-Severe Pain (Scale 4-10), Routine, Recovery (only) lactated ringers (LR) infusion 25 mL/hr, intravenous, CONTINUOUS, Starting on Thu09/12/22 at 0700, Until Thu09/12/22 at 1436, Routine, Preprocedure New Bag 09/12/2022 7:24 EST 25 mL/hr 25 mL/hr lactated ringers (LR) infusion at 100 mL/hr, 1,000 mL, intravenous, PACU CONTINUOUS, Starting on Thu09/12/22 at 0945, Until Thu09/12/22 at 1436, Routine, Recovery (only) lactated Ringers 3,000 mL with EPINEPHrine (ADRENALIN) 1 mL PRN, Starting on Thu09/12/22 at 0815, Until Thu09/12/22 at 0907, Routine, Intraprocedure Given 09/12/2022 8:19 EST 3,000 mL Left H ip Given 09/12/2022 8:15 EST 3,000 mL Left Hip lactated ringers BOLUS 500 mL 500 mL, intravenous, ONCE PRN, 1 dose, Starting on Thu09/12/22 at 0916, Until Thu09/12/22 at 0910, Other, SBP below 100 or MAP below 60, Routine, Recovery (only) Given 09/12/2022 9:10 EST 500 mL meperidine (PF) (DEMEROL) injection 12.5 mg 12.5 mg, intravenous, EVERY 5 MIN PRN, 2 doses, Starting on Thu09/12/22 at 0916, Until Thu09/12/22 at 1436, SHIVERING, Routine, Recovery (only) methocarbamoL (ROBAXIN) tablet 1,000 mg 1,000 mg, oral, Once (Time Specified), 1 dose, On Thu09/12/22 at 0700, Routine, Preprocedure Given 09/12/2022 7:2 6 EST 1,000 mg ondansetron (PF) (ZOFRAN) injection 4 mg 4 mg, intravenous, ONCE PRN, 1 dose, Starting on Thu09/12/22 at 0916, Until Thu09/12/22 at 1436, Nausea, Routine, Recovery (only) oxyCODONE (ROXICODONE) immediate release tablet 5 mg 5 mg, oral, EVERY 30 MINUTES PRN, 2 doses, Starting on Thu09/12/22 at 0916, Until Thu09/12/22 at 0956, Pain, Routine, Recovery (only) Given 09/12/2022 9:56 EST 5 mg Given 09/12/2022 9:51 EST 5 mg Phenylephrine 0.8 mg/10 ml vial 80 mcg 80 mcg, intravenous, EVERY 3 MINUTES PRN, Starting on Thu09/12/22 at 0916, Until Thu09/12/22 at 1436, Other, SBP below 100 mmHg or MAP below 60 mmHg, Routine, Recovery (only) documented in this encounter Active and Recently Administered Medications Times are shown in EST. Scheduled Medication Order 09/10/2022 09/11/2022 09/12/2022 acetaminophen (TYLENOL) tablet 975 mg (COMPLETED) 975 mg (rounded from 1,000 mg), oral, PRE-OP ONCE, 1 dose, On Thu09/12/22 at 0700, Routine, Preprocedure 0725 (Given - Provid er: Ann Perez RN) ceFAZolin in dextrose 5 % (ANCEF) IVPB DUPLEX 2,000 mg (COMPLETED) 2,000 mg, intravenous, Administer over 30 Minutes, PRE-OP ONCE, 1 dose, On Thu09/12/22 at 0700, Type of Therapy: Prophylaxis, Suspected Indication (Select all that apply): Surgical prophylaxis, Routine, Preprocedure 0724 (Hold - Provide r: Ann Perez RN - Reason: Other - Comment: hang and hold for ORPenicillin allergy causing hives but no anaphylaxis symptoms-Gila Gold MD aware)0769 (Given - Provider: Carlos Gold MD) diazePAM (VALIUM) tablet 5 mg (COMPLETED) 5 mg, oral, PRE-OP ONCE, 1 dose, On Thu09/12/22 at 0700, Routine, Preprocedure 0731 (Given - Provid er: Ann Perez RN) methocarbamoL (ROBAXIN) tablet 1,000 mg (COMPLETED) 1,000 mg, oral, Once (Time Specified), 1 dose, On Thu09/12/22 at 0700, Routine, Preprocedure 0726 (Given - Provid er: Ann Perez RN) Continuous Medication Order 09/10/2022 09/11/2022 09/12/2022 lactated ringers (LR) infusion 25 mL/hr, intravenous, CONTINUOUS, Starting on Thu09/12/22 at 0700, Until Thu09/12/22 at 1436, Routine, Preprocedure 0724 (New Bag - Prov ider: Ann Perez RN) lactated ringers (LR) infusion at 100 mL/hr, 1,000 mL, intravenous, PACU CONTINUOUS, Starting on Thu09/12/22 at 0945, Until Thu09/12/22 at 1436, Routine, Recovery (only) 1037 (Continued Infu parker - Provider: Sahara Glover RN) PRN Medication Order 09/10/2022 09/11/2022 09/12/2022 bupivacaine HCl 0.5 % (5 mg/mL) injection (CANCELED) PRN, Starting on Thu09/12/22 at 0817, Until Thu09/12/22 at 0907, Routine, Intraprocedure 0817 (Given - Provid er: Farzad Garza MD - Comment: lot: [id number] exp: 02/2023) chlorhexidine gluconate 2 % cloth 1 Each (CANCELED) 1 Each, topical, PRE-OP MULTIPLE, Starting on Thu09/12/22 at 0639, Until Thu09/12/22 at 0907, Other, Routine, Preprocedure 0735 (Given - Provid er: Ann Perez RN) diphenhydrAMINE (BENADRYL) injection 6.25 mg 6.25 mg, intravenous, ONCE PRN, 1 dose, Starting on Thu09/12/22 at 0916, Until Thu09/12/22 at 1436, Nausea/Vomiting, Routine, Recovery (only) fentaNYL citrate (PF) injection 50 mcg 50 mcg, intravenous, EVERY 5 MIN PRN, Starting on Thu09/12/22 at 0916, Until Thu09/12/22 at 1436, Pain, Moderate-Severe Pain (Scale 4-10), Routine, Recovery (only) 1021 (Given - Provid er: Sahara Glover RN) glycopyrrolate (ROBINUL) injection 0.2 mg 0.2 mg, intravenous, EVERY 3 MINUTES PRN, Starting on Thu09/12/22 at 0916, Until Thu09/12/22 at 1436, BRADYCARDIA, Routine, Recovery (only) HYDROmorphone (PF) (DILAUDID) 0.5 mg/0.5 mL syringe 0.5 mg 0.5 mg, intravenous, EVERY 5 MIN PRN, Starting on Thu09/12/22 at 0916, Until Thu09/12/22 at 1436, Pain, Moderate-Severe Pain (Scale 4-10), Routine, Recovery (only) lactated Ringers 3,000 mL with EPINEPHrine (ADRENALIN) 1 mL (CANCELED) PRN, Starting on Thu09/12/22 at 0815, Until Thu09/12/22 at 0907, Routine, Intraprocedure 0815 (Given - Provid er: Farzad Garza MD)0819 (Given - Provider: Farzad Garza MD) lactated ringers BOLUS 500 mL (COMPLETED) 500 mL, intravenous, ONCE PRN, 1 dose, Starting on Thu09/12/22 at 0916, Until Thu09/12/22 at 0910, Other, SBP below 100 or MAP below 60, Routine, Recovery (only) 0910 (Given - Provid er: Sahara Glover RN) meperidine (PF) (DEMEROL) injection 12.5 mg 12.5 mg, intravenous, EVERY 5 MIN PRN, 2 doses, Starting on Thu09/12/22 at 0916, Until Thu09/12/22 at 1436, SHIVERING, Routine, Recovery (only) ondansetron (PF) (ZOFRAN) injection 4 mg 4 mg, intravenous, ONCE PRN, 1 dose, Starting on Thu09/12/22 at 0916, Until Thu09/12/22 at 1436, Nausea, Routine, Recovery (only) oxyCODONE (ROXICODONE) immediate release tablet 5 mg (COMPLETED) 5 mg, oral, EVERY 30 MINUTES PRN, 2 doses, Starting on Thu09/12/22 at 0916, Until Thu09/12/22 at 0956, Pain, Routine, Recovery (only) 0951 (Given - Provid er: Sahara Glover RN)0956 (Given - Provider: Sahara Glover RN - Comment: 10mg given for pain 02/07) Phenylephrine 0.8 mg/10 ml vial 80 mcg 80 mcg, intravenous, EVERY 3 MINUTES PRN, Starting on Thu09/12/22 at 0916, Until Thu09/12/22 at 1436, Other, SBP below 100 mmHg or MAP below 60 mmHg, Routine, Recovery (only) documented in this encounter Orders Medications Ordered That Mc ht Not Have Been Administered Count Last Ordered Date First Ordered Date ceFAZolin in dextrose 5 % (A NCEF) IVPB DUPLEX 2,000 mg 1 09/12/2022 diphenhydrAMINE (BENADRYL) i njection 6.25 mg 1 09/12/2022 glycopyrrolate (ROBINUL) injection 0.2 mg 1 09/12/2022 HYDROmorphone (PF) (DILAUDID ) 0.5 mg/0.5 mL syringe 0.5 mg 1 09/12/2022 lactated ringers (LR) infusion 1 09/12/2022 lidocaine (PF) 10 mg/mL (1 % ) injection 2 mg 1 09/12/2022 meperidine (PF) (DEMEROL) in jection 12.5 mg 1 09/12/2022 ondansetron (PF) (ZOFRAN) injection 4 mg 1 09/12/2022 Phenylephrine 0.8 mg/10 ml vial 80 mcg 1 Discharge Count Last Ordered Date First Orde red Date DISCHARGE PATIENT 1 09/12/2022 documented in this encounter Care Teams Sr. Operations Manager Relationship Specialty Start Date End Date Angelica Murphy FNP [facility] [place] [address] PCP - General 08/05/21 documented as of this encounter
--- OUTSIDE RECORDS SUMMARY | 2024-05-27 02:36 | XMS_ITS | Encounter Summary ---
Author Organization [facility] Address [address] [place] [address] Care Team Providers Care Motor Analyst Name Role Phone Angelica Murphy TINY Primary Care Provider [phone] Reason for Visit * Auth/Cert (Routine) Specialty Diagnoses / Procedures Referred By Stephanie price Referred To Contact Diagnoses Arthralgia of left lower leg Arthralgia of left lower leg [M25.562] Procedures [place] ARTHROSCOPY HIP W/LABRAL REPAIR [place] ARTHROSCOPY HIP W/ACETABULOPLASTY WA HIP SCOPE/REMV BODY,SYNOVECTOMY WA HIP SCOPE/REMV BODY,PLASTY/RESECTN ARTHROSCOPY W/ LABRAL REPAIR ARTHROSCOPY HIP W/ACETABULOPLASTY ARTHROSCOPY, HIP, SURGICAL; W/SYNOVECTOMY CHONDROPLASTY, HIP, ARTHROSCOPIC Referral ID Status Reason Start Date Expiration Date Visits Re quested Visits Authorized [id number] 1 1 Encounter Details Date Type Department Care Team (Late st Contact Info) Description 09/12/2022 6:26 EST - 09/12/2022 12:21 EST Hospital Encounter [facility] Operating [address] [place] [address] Farzad Garza MD [address] [place] [address] Discharge Disposition: Home or Self Care Social History Tobacco Use Types Packs/Day Years [...] additional Tylenol if on Vicodin, Percocet, or [place] unless instructed to by a doctor No [...] Code Departure Means Destination Home or Self Usp documented in this encounter H&P Notes * [...] facility-administered medications prior to visit. ? OBJECTIVE: [facility] 08/28/2017 On physical exam, the patient is [...] OF : 73 SURGEON: Latrice Garza MD TOOLING SUPERVISOR: Taylor Tovar DATE OF SURGERY: 09/12/22 PREOPERATIVE [...] arm was brought over the chest and well- padded to avoidany pressure points or tension on the shoulder. The nonoperative side arm was rested in a well-padded arm board. A well-padded perineal post was placed and bilateral feet wrapped in cotton padding and foam boots in place securely in the traction boots. Then, the operative leg was abductor and tracti on was applied. It was then a deducted [...] A parallel capsulotomy was performed with the [place] blade approximately 1 cm distal labrum to [...] at the end the case. A skilled hospital clinic assistant was necessary to complete the procedure in [...] Almonte RN - 09/10/2022 1100 EST Barbi Ivey has been instructed as follows regarding [...] - 09/12/2022 0930 EST Date: 09/12/2022 Location: [facility] [place] Name: Barbi Ivey, : 1975, Diagnosis [...] (Removed) Implants Type Name Action Serial No. [place] ANCHOR SUTURE FIBERWIRE 1.8MM Q FIX [id number] - [id number] Implanted [place] ANCHOR SUTURE FIBERWIRE 1.8MM Q FIX [id number] - [id number] Implanted [place] ANCHOR SUTURE FIBERWIRE 1.8MM Q FIX [id number] - [id number] Implanted Staff: Inspector Water Pollution Control: Kecia Wlaters RN Corporate Giving Manager: Azalea Erickson Relief Inspector Water Pollution Control: Stefania Meraz RN OR TECH: Brenna Hoyt Government Relations Director: Taylor Tovar Indications: Barbi Ivey is an [...] EST) 09/17/2022 12:2 9 EST Scan 2 It Security Project Manager PROCEDURE/MINOR JIGAR GICAL ORDERABLES documented in this encounter Visit Diagnoses Diagnosis Arthralgia of left lower leg- Primary Pain in joint, lower leg documented in [...] Preprocedure Given 09/12/2022 7:25 EST 975 mg chlorhexidine gluconate 2 % cloth 1 Each [...] Thu09/12/22 at 1436, Routine, Recovery (only) lactated ringers BOLUS 500 mL 500 mL, [...] Thu09/12/22 at 0700, Routine, Preprocedure Given 09/12/2022 7:26 EST 1,000 mg ondansetron (PF) (ZOFRAN) injection [...] hives but no anaphylaxis symptoms-Gila Gold MD aware)0744 (Given - Provider: Carlos Gold MD) diazePAM [...] er: Farzad Garza MD - Comment: lot: [id number] exp: 02/2023) chlorhexidine gluconate 2 % cloth [...] Count Last Ordered Date First Ordered Date bupivacaine HCl 0.5 % (5 mg/mL) injection 09/12/2022 ceFAZolin in dextrose 5 % (A NCEF) IVPB DUPLEX 2,000 mg 09/12/2022 diphenhydrAMINE (BENADRYL) i njection 6.25 mg 09/12/2022 glycopyrrolate (ROBINUL) injection 0.2 mg 09/12/2022 HYDROmorphone (PF) (DILAUDID ) 0.5 mg/0.5 mL syringe 0.5 mg 1 09/12/2022 lactated ringers (LR) infusion 1 09/12/2022 lactated Ringers 3,000 mL wi th EPINEPHrine (ADRENALIN) 1 mL 1 09/12/2022 lidocaine (PF) 10 mg/mL (1 % ) injection 2 mg 1 09/12/2022 meperidine (PF) (DEMEROL) in jection 12.5 mg 1 09/12/2022 ondansetron (PF) (ZOFRAN) injection 4 mg 1 09/12/2022 Phenylephrine 0.8 mg/10 ml vial 80 mcg 1 Discharge Count Last Ordered Date First Orde red Date DISCHARGE PATIENT 1 09/12/2022 documented in this encounter Care Teams Motor Analyst Relationship Specialty Start Date End Date [place] [address] PCP - General 08/05/21 documented as of this encounter
--- OUTSIDE RECORDS SUMMARY | 2024-05-27 02:36 | XMS_ITS | Encounter Summary ---
Author Organization [facility] Address [address] [place] [address] Care Team Providers Care Pack Operator Name Role Phone Angelica Murphy TINY Primary Care Provider [phone] Reason for Visit * Reason Comments Chronic Pain Encounter Details Date Type Department Care Team (Latest Contact Info) Description 05/20/2022 10:00 EDT Office Visit [facility] Comprehensive Pain Program - [address] [place] [address] Julia Montez, PhD [address] [place] [address] [address] [place] [address] Anxiety about health (Primary Dx); Chronic pain syndrome Social History Tobacco Use Types Packs/Day Years [...] suspected to have Coronavirus/COVID-19? No / Unsure 05/19/2022 11:34 EDT documented as of this encounter Functional [...] Yes 08/28/2020 documented as of this encounter Progress Notes * Julia Montez, PhD - 05/20/2022 1000 EDT Comprehensive Pain Program Psychotherapy Appointment SUBJECTIVE: Continuing with the pain protocol. Eye Movement Desensitization and Reprocessing (EMDR) Presenting issue / Target memory: Pain reduction/management. Image: rubber mallet pounding on rotting board Negative belief: I am incapable. Subjective Units of Disturbance (SUDS) / Pain Level 0 (none or neutral) to 10 (highest disturbance) SUDS/Pain Level at beginning of session: 7 SUDS/Pain Level at end of session: 7 Desired positive belief: I am capable. Initial Validity of Cognition (VoC), 1 (completely false) to 7 (completely true): 3 VoC at end of session: n/a Issues/Associations that arose during processing to re-evaluate at a later time: n/a Sharp pain arose during session (image of knife) Noted that the board became less rotten as session progressed; the mallet became smaller; knife became less bothersome. OBJECTIVE: Arrived: prompt Session length: 55 minutes. Regarding response to bilateral stimulation, appeared to effectively respond to tactile/visual bilateral stimulation via electronic pulsers with lights. Preferred Tempo: 7 speed, 5 intensity Stabilization exercise at end of session: secure, calm place and container ASSESSMENT: Diagnostic Impression: ICD-10-CM ICD-9-CM 1. Anxiety about health F41.8 300.09 2. Chronic pain syndrome G89.4 338.4 Treatment Process: fully engaged Obstacles to treatment: n/a Rationale for frequency and duration of therapy: we are proceeding with a short- term course of EMDRtreatment. Stability when leaving session: good. Recommendations: Proceed with EMDR sessions to observe efficacy of treatment method. Home practice: Keep log to record memories, dreams, sensations, and feelings that may arise in between sessions. Bring to next session. Use container method as needed. Practice secure place imagery and mindfulness daily. PLAN: Continue with time-limited EMDR treatment using a pain protocol. documented in this encounter Plan of Treatment Not on file documented as of this encounter Visit Diagnoses Diagnosis Anxiety about health- Primary Chronic pain syndrome documented in this encounter Care Teams Pack Operator Relationship Specialty Start Date End Date Angelica Murphy [place] [address] [place] [address] PCP - General 08/05/21 documented as of this encounter
--- OUTSIDE RECORDS SUMMARY | 2024-05-27 02:36 | XMS_ITS | Encounter Summary ---
Author Organization [facility] Address [facility] [address] [place] [address] Care Team Providers Care Medicine Teacher Name Role Phone Jim Wei MD Primary Care Provider [phone] Reason for Visit * Reason Comments Bursitis thoracic right side Encounter Details Date Type Department Care Team (Late st Contact Info) Description 03/25/2011 1:15 PM EDT Office [place] [address] Nacho Almonte MD [facility] [place] [address] Right shoulder pain (Primary Dx) Discharge Disposition: [...] Sign Reading Time Taken Comments Blood Pressure 167/100 03/25/2011 2:09 PM EDT Pulse 84 03/25/2011 2:09 PM EDT Temperature - - Respiratory Rate - - Oxygen Saturation 100% 03/25/2011 2:09 PM EDT Inhaled Oxygen Concentration - - Weight 70.8 kg (156 lb) 03/25/2011 2:09 PM EDT Height 162.6 cm (5' 4) 03/25/2011 2:09 PM EDT Body Mass Index 26.78 03/25/2011 2:09 PM EDT documented in this encounter Progress Notes * Nacho Almonte MD - 03/26/2011 8:47 AM EDT Images from the original note were not included. Subjective: Patient ID: Barbi Ivey is a 35 y.o. female. I have been asked by Dr. Gonzalez to consult on right shoulder pain for .Barbi Ivey Chief complaint right shoulder pain HPI History: This problem has been going on for over a year now there is no particular injury, except for one time a client pulled the patient's arm and she felt a pop in her shoulder. 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 The patient is left-handed but uses her right arm for most of her strength activities. She did develop this not paravertebrally on the right side approximately mid scapular level with pain going up into the trapezius muscle all the way up into the neck, and out over the deltoid and into the upper arm, as well as overall the pectoral muscles. There is also a needle sharp pain sometimes alongthe chest wall and axillary pain. Otherwise the pain is described as a constant burning pain with afeeling of a hammer chipping away at the bones in her shoulder. Intermittently the whole arm will go numb and tingling down to all fingers. She was initially treated with 3 injections of steroid in the muscle between the scapula and the spine, which made things 3 times worse. She then had an injection of the bursa between the scapula inferiorly and the chest wall, which she states did nothing forher at night even for a few minutes with the local anesthetic. She's been undergoing extensive physical therapy from April 09 through February 08 which is included use of the stem and TENS home tractionultrasound iontophoresis. Today I had diaphoresis over the deltoid area did help a bit, but she's never tried Lidoderm patches. TENS made things worse. The home traction unit seems to help a bit, however she cannot utilize that currently because lying on her back on an a flat hard surface causes severe pain between the shoulder blade and the spine. She has been titrated up to 1200 mg 3 times a day of Neurontin which does help that sharp kneeling pain in her axilla but not much of the burning pain. Naprosyn was of no benefit Percocet 5/325 did help a little bit for a couple of hours but she was limited to taking only 2 a day for a while. She is due to have an arthroscopic debridement of the inferior scapula bursa surgically in a few weeks. Current outpatient prescriptions ordered prior to encounter Medication Sig Dispense Refill ??? Potassium Citrate (UROCIT-K 10) 10 mEq TbSR 20 MEQ = 2 Tablet(s), PO, Twice daily ??? hydrochlorothiazide (HYDRODIURIL) 12.5 mg tablet 12.5 MG = 1 Tablet(s), PO, Twice daily Allergies Allergen Reactions ??? Penicillins Hives ??? Lisinopril History Social History ??? Marital Status: Spouse Name: N/A Number of Children: N/A ??? Years of Education: N/A Occupational History ??? Not on file. Social History Main Topics ??? Smoking status: Never Smoker ??? Smokeless tobacco: Not on file ??? Alcohol Use: Yes occasional ??? Drug Use: No ??? Sexually Active: Not on file Other Topics Concern ??? Not on file Social History Narrative Patient is with 2 children she smokes occasionally drinks alcohol never used drugs. 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 Past Medical History Diagnosis Date ??? Hypertension Past Surgical History Procedure Date ??? section X2 ??? Orthopedic surgery Foot ??? Kidney stone surgery Extraction via cystoscopy Review of Systems Constitutional: Positive for unexpected weight change ( weight gain on amitriptyline). HENT: Positive for neck pain ( see present illness). Negative for ear pain, trouble swallowing and dental problem. Eyes: The patient has noted droopiness of the right eyelid when looking in the mirror for the past few months Respiratory: Negative for cough, shortness of breath and wheezing. Cardiovascular: Negative for chest pain and palpitations. Gastrointestinal: Positive for constipation ( occasional). Genitourinary: Status post kidney stone extraction Musculoskeletal: Positive for myalgias ( see present illness). Neurological: Positive for dizziness ( occasional when standing up), numbness ( see present illness) and headaches ( occasional). Negative for seizures and syncope. Hematological: Negative for adenopathy. Does not bruise/bleed easily. Psychiatric/Behavioral: Some anxiety, no depression Objective: Physical Exam Constitutional: She is oriented to person, place, and time. She appears well- developed and well-nourished. HENT: Head: Normocephalic. Eyes: Conjunctivae are normal. Musculoskeletal: Normal range of motion. Right shoulder: She exhibits tenderness, bony tenderness, pain and spasm. She exhibits no crepitus ( there is no crepitus with abduction of the shoulder blade and no particular winging of the scapula). Arms: Lymphadenopathy: She has no cervical adenopathy. Neurological: She is alert and oriented to person, place, and time. She has normal strength. No sensory deficit ( full sensation to light touch throughout the upper and lower extremity.). Reflex Scores: Tricep reflexes are 1+ on the right side and 1+ on the left side. Bicep reflexes are 1+ on the right side and 1+ on the left side. Brachioradialis reflexes are 1+ on the right side and 1+ on the left side. There is giveaway weakness about the shoulder girdle muscles secondary to pain otherwise distal strength on the right extremity is normal on the left extremity is fully normal Skin: Skin is warm and dry. Psychiatric: She has a normal mood and affect. Her behavior is normal. Judgment and thought contentnormal. Radiology. For the appointment was made less than 24 hours previously and patient was unable to obtain copies of the films. MRI of the shoulder by report shows some mild subacromial subdeltoid bursitis and suspicious injury to the collateral humeral joint capsular attachments of the humerus. Patient reports she's had an MRI of the neck which was reported as normal but I have no copies of the films. Nerve conduction studies show mild to moderate right carpal tunnel syndrome with normal ulnar nerves radial nerves no evidence of thoracic outlet syndrome no evidence of cervical radiculopathy. On EMG though there was no studies of the scalene muscles performed. Assessment and Plan: No problem-specific visit notes found for this encounter. Assessment: Right shoulder pain probably overuse myofascial in nature. There appears to be some intermittent symptoms of possible thoracic outlet syndrome with marked tenderness and spasm of the scalene muscles. At some point a trigger point injection with a little bit of local into the scalene muscles may be useful to see if she would benefit from some Botox injection. This would only explain the degree of intermittent numbness and tingling in her entire arm. There is marked enstheopathy of all he attachments of the muscles of the shoulder girdle to the spine and joints. Recommendations: 1. I believe the patient needs some additional pain relief to assist in her care at this point in time. I am going to try her on OxyContin 10-20 mg every 12 hours to see if we can get some better pain control for her so that she can slowly increase movement about the shoulder and relieve some of this pain. I think we may have to limit some of her strengthening exercises and go to more passive activity to rest the muscles and gently stretch them before really aggressively bringing in a strengthening activity. 2. Since she has responded to iontophoresis I am going to try some Lidoderm patches up to 3 at a time particularly over the area of the rhomboids and trapezius to see if we can get some better pain control. 3. We will see how she does following the planned orthopedic surgery and do further adjustments at that point in time. 4. I seen acupuncture give very nice results and shoulder problems and in fact the patient has responded to acupuncture in the past about her knee. I think a trial of acupuncture of at least 8 treatments to see if she will begin to respond is worthwhile. I do not think 8 treatments will correct theproblem, but if there is some improvement then I would continue to extend the treatment with the hopes of getting her to a point where she can have the treatments once monthly in the future. 5. At some point I think she would deserve a trial of Cymbalta to help modulate this pain. I did not start her today so as not to confuse the issues of starting many medications at the same time, nordo interfere with upcoming surgery. 6. Again at some point, I will refer her to our psychologist for cognitive behavioral therapy of limited intervention as I believe she will have some degree of chronic shoulder pain for a long time. I will follow her up in one to 2 months time hopefully after the time of her surgery to add additional therapy as suggested above into her therapy. documented in this encounter Miscellaneous Notes * Miscellaneous - Con, Assistant Farm Operations Manager - 04/03/2011 3:05 PM EDT documented in this encounter Plan of Treatment Not on file documented as of this encounter Visit Diagnoses Diagnosis Right shoulder pain- Primary Pain in joint, shoulder region documented in this encounter Care Teams Medicine Teacher Relationship Specialty Start Date End Date Jim Wei MD [address] [place] [address] PCP - General 07/23/10 10/08/15 documented as of this encounter
--- OUTSIDE RECORDS SUMMARY | 2024-05-27 02:36 | XMS_ITS | Encounter Summary ---
Author Organization [facility] Address [facility] [address] [place] [address] Care Team Providers Care Supervisor Toy Assembly Name Role Phone Jim Wei MD Primary Care Provider [phone] Reason for Visit * Reason Comments Cervicalgia Encounter Details Date Type Department Care Team (Late st Contact Info) Description 06/16/2011 7:30 AM EDT Office [place] [address] Nacho Almonte MD [facility] [place] [address] Muscle spasms of head or neck (Primary Dx) Discharge Disposition: Home Social History [...] Sign Reading Time Taken Comments Blood Pressure 138/67 06/16/2011 8:56 AM EDT Pulse 71 06/16/2011 8:56 AM EDT Temperature - - Respiratory Rate - - Oxygen Saturation 100% 06/16/2011 8:56 AM EDT Inhaled Oxygen Concentration - - Weight - - Height - - Body Mass Index - - documented in this encounter Patient Instructions * Patient Instructions* Katelyn Quinn RN - 06/16/2011 9:00 AM EDT Pain Management Center Discharge Instructions: You were seen by Dr. Nacho Almonte MD who performed right anterior scalene injection. [x] You may resume your normal activities: today. You may shower today. DO NOT tub bathe, use whirlpools, hot tubs or pool therapy for 2 days. RemoveBand-Aid(s) later today/tomorrow. Do not drive until tomorrow. Use caution walking/climbing stairs as you may be unsteady on your feet. You may use your usual medications, including pain medications, as directed, unless otherwise instructed. You may use an ice pack as needed for the first 24 hours, on for 20 minutes then off for 20 minutes. Do not apply heat today. Attempt to empty your bladder 4-6 hours after your procedure. You received the following medications: Sensorcaine. During regular business hours, please phone the Pain Management Center at for appointments or with any questions or if the following or other troubling symptoms develop: 1) Prolonged dizziness or weakness (more than 1 day). 2) Localized swelling, redness or drainage at the injection site(s). 3) Temperature of 101 degrees that lasts for more than 4 hours. After 5 PM or on weekends, call and ask for Pain Clinic provider on-call. If you are unable to reach the Pain Management Center and have a complication, please call your Primary Care Provider or proceed to your local emergency department. Special instructions:Pain Management Center Post -Procedure Pain Log Patient: Barbi Ivey [id number] It is important for you to keep track of your pain after your procedure that took place 06/16/2011.This information will help your Provider to determine how to help reduce your pain. Today you had a procedure for pain in your right anterior scalene injection. Your pain level before the procedure in this area was 6/10. Your pain level immediately after your procedure was 6/10. Time Pain Score Comments 1 hour 2 hours 3 hours 4 hours Please call the nurse in the Pain Management Center a day or two after your procedure and report the information above. She will assess your response to the procedure, and will recommend appropriate follow-up. Katelyn Quinn RN documented in this encounter Progress Notes * Nacho Almonte MD - 06/16/2011 4:43 PM EDT I was the attending physician supervising the resident in the above care and I was present with theresident for the entire procedure. * Katelyn Quinn RN - 06/16/2011 8:48 AM EDT Pre-Procedure Screening Questions: 1. Status: No 2. 3. 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 Yes 4. Patient taking antibiotics at present? No 5. NPO per Pain Management Center protocol? No 6. 7. Patient diabetic: No __ borderline (not treated with medications) __ managed with oral medications __ managed with injected medications 8. Patient routinely taking anticoagulants ? No Date stopped Current INR Patient Vital Signs documented in Doc Flowsheets associated with this encounter. Patient Discharge Instructions were reviewed with patient and copy provided to patient. documented in this encounter Procedure Notes * Haresh Judge MD - 06/16/2011 4:17 PM EDTAssociated Order(s): TRIGGER POINT INJECTION - 1 OR 2 MUSCLES Procedure(s): TRIGGER POINT INJECTION - 1 OR 2 MUSCLES Pre-Procedure Diagnose(s): Muscle spasms of head or neck Pain clinic ultrasound-guided trigger point injection Patient is here for ultrasound-guided anterior scalene muscle trigger point injection. Informed consent was signed and questions were answered. Patient rested supine on the exam table with her head turned to the left. The right neck was prepped and draped in sterile manner and anterior scalene muscle was palpated and identified using ultrasound guidance. A 2 inch Stimuplex ultrasound needle was placed in the long axis view to the anterior scalene muscle. 1.5 cc of 0.5% bupivacaine was injected after negative aspiration. The needle was withdrawn necklace cleaned and Band-Aid was placed. There were no complications. Patient will present for followup in pain clinic in 3-4 weeks. If this does not work we will consider using Botox injections to the spasms muscle. Haresh Judge, pain medicine fellow [id number] documented in this encounter Miscellaneous Notes * Miscellaneous - Con, Health Consultant - 06/25/2011 8:33 AM EDT documented in this encounter Plan of Treatment Not on file documented as of this encounter Results * TRIGGER POINT INJECTION - 1 OR 2 MUSCLES (06/16/2011 4:18 PM EDT) Nacho Almonte MD NEUROLOGY ORDERABLES documented in this encounter Visit Diagnoses Diagnosis Muscle spasms of head or neck- Primary Spasm of muscle documented in this encounter Administered Medications Inactive Administered Medications - up to 3 most recent administrations Medication Order MAR Action Action Date Dose Rate Site BUpivacaine (PF) (MARCAINE) 0.5 % (5 mg/mL) injection 7.5 mg 7.5 mg, Intrapleural, ONCE, 1 dose, On Thu06/16/11 at 1630, Routine Given 06/16/2011 4:30 PM EDT 7.5 mg lidocaine (PF) (XYLOCAINE) 10 mg/mL (1 %) injection 10 mg 10 mg, Subcutaneous, ONCE, 1 dose, On Thu06/16/11 at 1630, Routine Given 06/16/2011 4:30 PM EDT 10 mg documented in this encounter Care Teams Supervisor Toy Assembly Relationship Specialty Start Date End Date Jim Wei MD [address] [place] [address] PCP - General 07/23/10 10/08/15 [facility] [address] [address] [place] [address] Field ExaminerFloor Layer Tile Medicine 03/26/11 documented as of this encounter
--- OUTSIDE RECORDS SUMMARY | 2024-05-27 02:36 | XMS_ITS | Encounter Summary ---
Author Organization [facility] Address [address] [place] [address] Care Team Providers Care Hot Dip Plating Supervisor Name Role Phone Angelica Murphy TINY Primary Care Provider [phone] Encounter Details Date Type Department Care Team (Latest Contact Info) Description 07/21/2022 Travel Social History Tobacco Use Types Packs/Day Years [...] suspected to have Coronavirus/COVID-19? No / Unsure 07/21/2022 10:08 EST documented as of this encounter Functional [...] on filedocumented in this encounter Care Teams Hot Dip Plating Supervisor Relationship Specialty Start Date End Date Angelica Murphy FNP [place] [address] PCP - General 08/05/21 documented as of this encounter
--- OUTSIDE RECORDS SUMMARY | 2024-05-27 02:36 | XMS_ITS | Encounter Summary ---
Author Organization [facility] Address [facility] [address] [place] [address] Care Team Providers Care Lead Printer Name Role Phone Jim Wei MD Primary Care Provider [phone] Encounter Details Date Type Department Care Team (Late st Contact Info) Description 05/28/2011 Notes Only [place] [address] Nacho Almonte MD [facility] [place] [address] Social History Tobacco Use Types Packs/Day Years Used Date Smoking Tobacco: Never Alcohol Use Standard Drinks/Week Comments Yes 0 (1 standard drink = 0.6 oz pur e alcohol) occasional Sex and Gender Information Value Date Recorded Sex Assigned at Not on file Gender Identity Not on file Sexual Orientation Not on file documented as of this encounter Progress Notes * Nacho Almonte MD - 05/28/2011 9:14 AM EDT I reviewed the cervical MRI of Barbi Ivey from August of 2010 the radiologist indicated the degenerative changes at C3-4 and C5-6. They noted at the C3-4 was particularly to the left of the midline is a disc osteophyte complex. In my viewing of the films I noted some neural foraminal narrowing on the right side at the C3-4 level. This could potentially be effecting the right C4 nerve and therefore possibly causing some right shoulder pain. We'll consider possible cervical epidural steroidinjections and/or a cervical medial branch blocks in the future. documented in this encounter Plan of Treatment Not on file documented as of this encounter Visit Diagnoses Not on filedocumented in this encounter Care Teams Lead Printer Relationship Specialty Start Date End Date Jim Wei MD [address] [place] [address] PCP - General 07/23/10 10/08/15 [facility] [address] [address] [place] [address] Tool Machine Setup OperatorFraud Investigator Medicine 03/26/11 documented as of this encounter
--- OUTSIDE RECORDS SUMMARY | 2024-05-27 02:36 | XMS_ITS | Encounter Summary ---
Author Organization [facility] Address [address] [place] [address] Care Team Providers Care Black Topper Name Role Phone Angelica Murphy TINY Primary Care Provider Reason for Referral * PT/OT/ST (Routine/Next Available) - Closed Specialty Diagnoses / Procedures Referred By Stephanie price Referred To Contact Diagnoses S/P hip arthroscopy Farzad Garza MD [address] [place] [id number] Referral ID Status Reason Start Date Expiration Date V isits Requested Visits Authorized [id number] Closed Specialty Services Required 09/25/2022 1 1 Question Answer Reason for Request: s/p left hip scope SITE Nishant Shrestha PT [phone] Reason for Visit * Reason Onset Date Comments Referral Request 09/25/2022 Encounter Details Date Type Department Care Team (Late st Contact Info) Description 09/25/2022 Telephone [facility] [address], [address] [place] [address] Farzad Garza MD [address] [id number] Referral Request Social History Tobacco Use Types Packs/Day Years [...] suspected to have Coronavirus/COVID-19? No / Unsure 09/22/2022 9:53 EST documented as of this encounter Functional [...] encounter Miscellaneous Notes * Telephone Encounter - Maria L Kiser LPN - 09/25/2022 1334 EST Nishant Shrestha PT called [facility] asking for a referral be sent. Barbi is there now. Referral placed as requested. documented in this encounter Plan of Treatment Scheduled Referrals Name Type Priority Associated Diagnoses Order Schedule AMB CONS/FOLLOW UP PHYSICAL THERAPY - OUTSIDE OF NETWORK Outpatient Referral Routine/Next Available S/P hip arthroscopy Expected: 10/02/2022 (Approximate), Expires: 09/25/2023 documented as of this encounter Visit Diagnoses Diagnosis S/P hip arthroscopy- Primary documented in this encounter Care Teams Black Topper Relationship Specialty Start Date End Date [place] [address] PCP - General 08/05/21 documented as of this encounter
--- OUTSIDE RECORDS SUMMARY | 2024-05-27 02:36 | XMS_ITS | Encounter Summary ---
[place] [address] Care Team Providers Care Gasoline Catalyst Operator Name Role Phone Jim Wei MD Primary Care Provider [phone] Encounter Details Date Type Department Care Team (Late st Contact Info) Description 04/01/2011 [place] [id number] Samina Figueroa, RN Social History Tobacco Use Types Packs/Day [...] on filedocumented in this encounter Care Teams Gasoline Catalyst Operator Relationship Specialty Start Date End Date Jim Wei MD [address] [place] [address] PCP - General 07/23/10 10/08/15 [facility] [address] [address] [place] [address] Multiple Punch Press OperatorUniversity Services Program Associate Medicine 03/26/11 documented as of this encounter
--- OUTSIDE RECORDS SUMMARY | 2024-05-27 02:36 | XMS_ITS | Encounter Summary ---
Author Organization [facility] Address [facility] [place] [address] Care Team Providers Care Electronic Systems Security Assessment Name Role Phone Jim Wei MD Primary Care Provider [phone] Encounter Details Date Type Department Care Team (Late st Contact Info) Description 09/11/2010 Orders [place] [address] Nacho Almonte MD [facility] [place] [address] Social History Tobacco Use Types Packs/Day Years Used Date Smoking Tobacco: Never Assessed Sex and Gender Information Value Date Recorded Sex Assigned at Not on file Gender Identity Not on file Sexual Orientation Not on file documented as of this encounter Plan of Treatment Not on file documented as of this encounter Procedures Procedure Name Priority Date/Time Associated Diagnosis Comments FILM LIBRARY STORAGE ONLY MR SPINE Routine 09/11/2010 5:35 PM EST documented in this encounter Results * FILM LIBRARY- STORAGE ONLY MR SPINE (09/11/2010 5:35 PM EST) 09/11/2010 5:35 PM EST Narrative RAD - 01/04/2014 7:06 PM EDT This is a non-reportable exam. Procedure Note Scooter Hussein - 01/04/2014 This is a non-reportable exam. Nacho Almonte MD IMG FILM LIBRARY ORD ERABLES [facility] [address] [facility] [place] [address] documented in this encounter Visit Diagnoses Not on filedocumented in this encounter Care Teams Electronic Systems Security Assessment Relationship Specialty Start Date End Date Jim Wei MD [address] [place] [address] PCP - General 07/23/10 10/08/15 [facility] [address] [address] [place] [address] ReinspectorStocking Inspector Medicine 03/26/11 documented as of this encounter
--- OUTSIDE RECORDS SUMMARY | 2024-05-27 02:36 | XMS_ITS | Encounter Summary ---
Author Organization [facility] Address [address] [place] [address] Care Team Providers Care Loan Processor Name Role Phone Angelica Murphy TINY Primary Care Provider Encounter Details Date Type Department Care Team (Late st Contact Info) Description 06/26/2023 Lab Requisition [facility] [address] [place] [address] Vilma Prasad, DO [address] [place], [place] [id number] Diverticulosis of large intestine without perforation or abscess without bleeding; Encounter for screening for malignant neoplasm of colon; Lyme disease, unspecified; Allergic rhinitis, unspecified; Fibromyalgia; Gastro-esophageal reflux disease without esophagitis Social History Tobacco Use Types Packs/Day Years [...] Procedure Name Priority Date/Time Associated Diagnosis Comments SURGICAL PATHOLOGY Today 06/26/2023 7: 51 EDT Diverticulosis of large intestine without perforation or abscess without bleeding Encounter for screening for malignant neoplasm of colon Lyme disease, unspecified Allergic rhinitis, unspecified Fibromyalgia Gastro-esophageal reflux disease without esophagitis documented in this encounter Results * SURGICAL PATHOLOGY (06/26/2023 7:51 EDT) Note to Patient The following pathology results have been interpreted by your pathologist and may be available to you before your health provider has had the opportunity to review them. Please allow time for your provider to receive these results and explore management options, if applicable. 07/01/2023 14:46 EDT [facility] Final Diagnosis A. SMALL INTESTINE, PROXIMAL JEJUNUM, BIOPSY: - Small bowel mucosa with no specific pathologic features. B. DUODENUM, BULB, BIOPSY: - Duodenal bulb mucosa with no specific pathologic features. C. STOMACH, ANTRUM, BIOPSY: - Gastric antral mucosa with reactive (chemical) gastropathy. - Negative for Helicobacter pylori organisms on H+E stained sections. D. STOMACH, GREATER CURVE, BIOPSY: - Gastric antral mucosa with reactive (chemical) gastropathy. - Negative for Helicobacter pylori organisms on H+E stained sections. E. STOMACH, FUNDUS, BIOPSY: - Gastric body mucosa with chronic gastritis. - Immunohistochemical staining for Helicobacter pylori is negative. F. GASTROESOPHAGEAL JUNCTION, AT 38 CM, BIOPSY: - Squamocolumnar junctional mucosa with mild reactive changes. - Negative for intestinal metaplasia; Negative for dysplasia. G. ESOPHAGUS, DISTAL, BIOPSY: - Reactive squamous mucosa. 07/01/2023 14:46 EDT [facility] Diagnosis Comment ANTIBODY(CLONE)(BLOCK ):RESULT H pylori (Rabbit Monoclonal (SP48), Sharpes) (E1): Negative NOTE: One or more of the reagents used in immunoperoxidase testing in this case may not have been cleared or approved by the U.S. Food and Drug Administration (FDA). The FDA has determined that such clearance or approval is not necessary. These tests are used for clinical purposes. They should not be regarded as investigational or for research. These reagents' performance characteristics have been determined by [facility] and/or by the referring laboratory. The positive and negative controls worked appropriately. If immunoperoxidase staining has been performed on alcohol fixed cytology specimens, which has not been fully validated, the assays should be interpreted with caution and correlated with clinical data. This laboratory is certified under the Clinical Laboratory Improvement Amendments of 1988 (CLIA-88) as qualified to perform high complexity clinical laboratory testing. 07/01/2023 14:46 [facility] Attestation By the signature below, the attending physician certifies that they have 1) personally conducted a gross and/or microscopic examination of the described specimen(s), and/or personally interpreted the results of laboratory testing of the described specimen(s), and 2) personally rendered or confirmed the above diagnosis. 07/01/2023 14:46 [facility] at 1446 Clinical History Gastritis, GERD, diverticulosis; clinical diagnosis code: K21.9, M79.7, I10, J30.9, G43.909, A69.20, Z12.11, K57.30 07/01/2023 14:46 [facility] Gross Description A. Received in formalin labelled with proper patient identification (initials A, M) and proximal jejunum biopsy is a 0.3 x 0.3 x 0.3 cm graham irregular soft tissue fragment. Entirely submitted in A1. B. Received in formalin labelled with proper patient identification (initials A, M) and duodenal bulb biopsy is a 0.3 x 0.3 x 0.3 cm graham irregular soft tissue fragment. Entirely submitted in B1. C. Received in formalin labelled with proper patient identification (initials A, M) and antrum biopsy is a 0.6 x 0.2 x 0.2 cm graham irregular soft tissue fragment. Entirely submitted in C1. D. Received in formalin labelled with proper patient identification (initials A, M) and greater curve biopsy is a 0.3 x 0.3 x 0.3 cm graham irregular soft tissue fragment. Entirely submitted in D1. E. Received in formalin labelled with proper patient identification (initials A, M) and fundus biopsy is a 0.5 x 0.2 x 0.2 cm graham irregular soft tissue fragment. Entirely submitted in E1. F. Received in formalin labelled with proper patient identification (initials A, M) and GE junction biopsy are 3 graham irregular soft tissue fragments ranging from 0.3 x 0.3 x 0.3 cm to 0.5 x 0.2 x 0.2 cm. Entirely submitted in F1. G. Received in formalin labelled with proper patient identification (initials A, M) and distal esophagus biopsy is a 0.5 x 0.2 x 0.2 cm graham irregular soft tissue fragment. Entirely submitted in G1. [employer] LUCIANO(ASCP) 06/29/2023 7:39 07/01/2023 14:46 EDT [facility] Performing Lab [facility] 07/01/2023 14:46 EDT [facility] Scanned Images 07/01/2023 14:46 EDT [facility] Tissue ESOPHAGEAL STRUCTURE / Unknown 06/26/2023 7:51 EDT 06/26/2023 17:33 EDT Tissue specimen (specimen) STRUCTURE OF SMALL INTESTINE / Unknown 06/26/2023 7:51 EDT 06/26/2023 17:33 EDT Tissue specimen (specimen) STOMACH STRUCTURE / Unknown 06/26/2023 7:51 EDT 06/26/2023 17:33 EDT Tissue specimen (specimen) STOMACH STRUCTURE / Unknown 06/26/2023 7:51 EDT 06/26/2023 17:33 EDT Tissue specimen (specimen) STOMACH STRUCTURE / Unknown 06/26/2023 7:51 EDT 06/26/2023 17:33 EDT Tissue specimen (specimen) ESOPHAGEAL STRUCTURE / Unknown 06/26/2023 7:51 EDT 06/26/2023 17:33 EDT Tissue specimen (specimen) ESOPHAGEAL STRUCTURE / Unknown 06/26/2023 7:51 EDT 06/26/2023 17:33 EDT Vilma Prasad DO PATHOLOGY ORDERABLES [facility] [address] [place] [address] documented in this encounter Visit Diagnoses Diagnosis Diverticulosis of large intestine without perforation or abscess without bleeding Diverticulosis of colon (without mention of hemorrhage) Encounter for screening for malignant neoplasm of colon Special screening for malignant neoplasms, colon Lyme disease, unspecified Allergic rhinitis, unspecified Fibromyalgia Mylagia and myositis, unspecified Gastro-esophageal reflux disease without esophagitis Esophageal reflux documented in this encounter Care Teams Loan Processor Relationship Specialty Start Date End Date Angelica [place] [address] PCP - General 08/05/21 documented as of this encounter
--- OUTSIDE RECORDS SUMMARY | 2024-05-27 02:36 | XMS_ITS | Encounter Summary ---
Author Organization [facility] Address [address] [place] [address] Care Team Providers Care Broommaker Name Role Phone Angelica Murphy TINY Primary Care Provider [phone] Reason for Visit * Auth/Cert (Routine) Specialty Diagnoses / Procedures Referred By Stephanie price Referred To Contact Diagnoses Arthralgia of left lower leg Arthralgia of left lower leg [M25.562] Procedures TX ARTHROSCOPY HIP W/LABRAL REPAIR TX ARTHROSCOPY HIP W/ACETABULOPLASTY TX HIP SCOPE/REMV BODY,SYNOVECTOMY TX HIP SCOPE/REMV BODY,PLASTY/RESECTN ARTHROSCOPY W/ LABRAL REPAIR ARTHROSCOPY HIP W/ACETABULOPLASTY ARTHROSCOPY, HIP, SURGICAL; W/SYNOVECTOMY CHONDROPLASTY, HIP, ARTHROSCOPIC Referral ID Status Reason Start Date Expiration Date Visits Re quested Visits Authorized [id number] 1 1 Encounter Details Date Type Department Care Team (Late st Contact Info) Description 09/12/2022 7:[address] [facility] [place] Operating Room [address] [place] [id number] Carlos Gold MD [address] [place] [address] Gibran Clements MD [address] [place] [address] Anesthesia Record Procedure Summary Procedure Name Responsible Anesthesiologist Anesthesia Start Time Anesthesia Stop Time ARTHROSCOPY W/ LABRAL REPAIR (Left: Hip) Carlos Gold MD 09/12/22 0746 09/12/22 0908 Events Date Time Event Comment 09/12/2022 0746 An Start The patient was re-evaluated immediately before moderate or deep sedation use, before anesthesia induction, or before the anesthesia procedure. 0746 An Start Data 0753 An Induction The patient was reevaluated immediately before moderate or deep sedation use and before anesthesia induction. 0757 An Intubation 0803 Anesthesia Ready 0903 An Extubation 0903 an stop data 0908 Handoff to RN I completed my handoff to the receiving nurse during which we: 1. Identified the patient 2. Identified the responsible provider 3. Reviewed the pertinent medical history 4. Discussed the surgical course 5. Reviewed intra-op anesthesia management and issues during anesthesia 6. Set expectations for post-procedure period 7. Allowed opportunity for questions and acknowledgement of understanding. 0908 An Stop Meds Name Total dexaMETHasone (DECADRON) inj ection 4 mg/mL (for IV doses up to 10mg) 8 mg ePHEDrine vial 50 mg/mL 10 mg fentanyl citrate (PF) injection 100 mcg glycopyrrolate injection 0.2 mg ketAMINE 10 mg/mL vial 20 mg midazolam (versed) 1 mg/mL 2 mL vial 2 m g ondansetron (PF) (ZOFRAN) injection 4 mg lidocaine 2% (PF) injection glass vial 5 0 mg phenylephrine injection 320 mcg propOFol (DIPRIVAN) injection 200 mg rocuronium 10 mg/mL vial 50 mg sugammadex 100 mg/mL 2 mL vial 200 mg lactated ringers (LR) infusion Cannot be calculated dexmedetomidine injection 20 mcg ceFAZolin in dextrose 5 % (ANCEF) IVPB D UPLEX 2,000 mg 2,000 mg ketOROLAC injection 30 mg * Agents Name Insp Sevoflurane Exp Sevoflurane O2 N2O Air * Blood No blood administrations on file. Lines, Drains, and Airways Type Details Placement Removal Wound 09/12/22; 724; Inci parker; Anterior, Left; Hip; Y; Full thickness 09/12/22 0725 by Kecia Walters RN Peripheral IV 09/12/22; 0723; 20; Posterior, Right; Hand; Inserted by RN; 1; None; 2% Chlorhexidine with IPA; 09/12/22; 1215; Per order; No complications 09/12/22 0723 by Ann Perez RN 09/12/22 1215 by Sahara Glover RN Non-Surgical Airway 09/12/22; 0801 (shekhar alu via procedure documentation); 09/12/22; 0903 09/12/22 0801 by Carlos Gold MD 09/12/22 0903 by Carlos Gold MD documented in this encounter Social History [...] 6:50 EST documented as of this encounter Functional [...] Yes 08/28/2020 documented as of this encounter OR Notes * Anesthesia Postprocedure Evaluation - Carlos Gold MD - 09/12/2022 0908 EST Patient: Barbi Ivey Vital signs were reviewed with the recovery nurse. [facility] Vitals Value Taken Time BP 97/57 09/12/22 0908 Temp 09/12/22 0908 Resp 17 09/12/22 0908 Pulse From Oximetry 71 BPM 09/12/22 0908 SpO2 95 % 09/12/22 0908 Heart Rate 71 BPM 09/12/22 0908 Vitals shown include unvalidated device data. Last Pain Score - Numeric Pain Level (Scale 1-10): 7 Type of Anesthesia - general Anesthesia Post Evaluation Post-procedure vitals reviewed and are stable. Level of consciousness: awake Temperature status: normothermia Respiratory status: airway patent Cardiovascular status: acceptable Hydration status: adequate Nausea/Vomiting: none Pain management: adequate Post-Op Assessment: patient tolerated procedure well with no complications and patient satisfied with anesthesia care Patient participation: able to participate Disposition: outpatient/home Anesthesia Complications: No apparent anesthesia complications * Anesthesia Procedure Notes - Carlos Gold MD - 09/12/2022 0758 EST Associated Order(s): Airway Airway Date/Time: 09/12/2022 7:54 Urgency: elective Airway not difficult General Information and Staff Patient location during procedure: OR Anesthesiologist: Carlos Gold MD Performed: anesthesiologist Indications and Patient Condition Indications for airway management: anesthesia Sedation level: GA Preoxygenated: yes Patient position: sniffing Ventilation assessment: 1 - Easy Final Airway Details Final airway type: endotracheal airway Successful airway: ETT Cuffed: yes Successful intubation technique: video laryngoscopy [place] Facilitating devices/methods: intubating stylet Endotracheal tube insertion site: oral Blade: Simi Blade size: #3 ETT size (mm): 6.5 Cormack-Lehane Classification: grade I - full view of glottis Placement verified by: chest auscultation and capnometry Cuff volume (mL): 5 Measured from: lips ETT to lips (cm): 19 Number of attempts at approach: 1 Number of other approaches attempted: 1 * Anesthesia Preprocedure Evaluation - Carlos Gold MD - 09/11/2022 0830 EST Anesthesia Preprocedure Evaluation Patient Medical History, including Anesthesia History reviewed. Chart and Nursing Notes reviewed, including NPO status and Medication History. Additional ROS/History Findings: No current facility-administered medications on file prior to encounter. Current Outpatient Medications on File Prior to Encounter Medication Sig Dispense Refill ??? aMILoride (MIDAMOR) 5 mg tablet Take 5 mg by mouth daily. ??? busPIRone (BUSPAR) 5 mg tablet Take 5 mg by mouth 2 times daily. ??? cellulose, bulk, 100 % powder ??? cholecalciferol, Vitamin D3, 1,000 unit tablet Take [...] daily. ??? pregabalin (LYRICA) 75 mg capsule ??? SUMAtriptan (IMITREX) 100 mg tablet Take by mouth as needed. ??? UNABLE TO FIND Med Name: Mitochondrial take 3 caps daily ??? venlafaxine (EFFEXOR) 75 mg tablet Take 75 mg by mouth daily. (Patient not taking: No sig reported) No current facility-administered medications for this encounter. Current Outpatient Medications Medication ??? aMILoride (MIDAMOR) 5 mg tablet ??? busPIRone (BUSPAR) 5 mg tablet ??? cellulose, bulk, 100 % powder ??? cholecalciferol, Vitamin D3, 1,000 unit tablet ??? cyclobenzaprine (FLEXERIL) 10 mg tablet ??? DULoxetine (CYMBALTA) 60 mg capsule ??? hydrochlorothiazide (HYDRODIURIL) 25 mg tablet ??? LORazepam (ATIVAN) 0.5 mg tablet ??? magnesium oxide (MAG-OX) 400 mg (241.3 mg magnesium) tablet ??? naltrexone HCl (NALTREXONE ORAL) ??? omega-3 fatty acids 1,000 mg capsule capsule ??? POTASSIUM CITRATE ORAL ??? pregabalin (LYRICA) 75 mg capsule ??? SUMAtriptan (IMITREX) 100 mg tablet ??? UNABLE TO FIND ??? venlafaxine (EFFEXOR) 75 mg tablet Allergies Allergen Reactions ??? Adhesive ??? Eggplant Urinary Obstruction ??? Lisinopril Other (See Comments) hypotension ??? Penicillins Hives Past Medical History: Diagnosis Date ??? Anxiety and depression ??? Lyme disease ??? Nephrolithiasis Relevant Problems No relevant active problems Past Surgical History: Procedure Laterality Date ??? CARPAL TUNNEL RELEASE Right ??? SHOULDER SURGERY Right Past Anesthetics 02/01/15 urology [place] [facility] [place] [facility] Mask Ventilation: Easy (1); ETT Type: Cuffed, Oral; ETT Size: 7.5 mm; Notes: Asleep, Pre-O2, Stylette; Attempts: 2; ETT Placement Verified By: Auscultation, Capnometry, Visual; Secured at Teeth: 22 cm; Inserted by: massey. Digitial intubation [] No history of complications from anesthesia []No family history of allergic reactions to anesthesia Review of Systems SOCIAL HISTORY: Social History Tobacco Use Smoking Status Never Smokeless Tobacco Never Social History Substance and Sexual Activity Drug Use Yes ??? Types: Marijuana Social History Substance and Sexual Activity Alcohol Use Yes Comment: Occasionally 1-2 drinks in a month No results found for: GLUCOSEPOC Lab Results Component Value Date WBC 7.97 07/11/2002 HGB 11.5 (L) 07/11/2002 HCT 32.7 (L) 07/11/2002 MCV 92 07/11/2002 PLT 173 07/11/2002 Lab Results Component Value Date NA 136 08/05/2021 K 3.4 (L) 08/05/2021 KEXT 3.6 01/16/2021 CL 99 08/05/2021 CLEXT 101 10/23/2020 CO2 28 08/05/2021 CO2EXT 28.9 10/23/2020 Lab Results Component Value Date BUN 13 08/05/2021 Lab Results Component Value Date CREATININE 0.79 08/05/2021 CREATININEEX 0.7 10/23/2020 No results found for: INR, PROTIME No results found for: PTT UPT: [] Patient declines test No results found for: PREGUR COVID: [] None on file No results found for: COVIDUV Blood Type: No results found for: ABO, LABRH, LABANTI, SPECEXP EKG: [] N/A ECHO: [] N/A Cardiac Stress: 10/25/15 1. Myocardial perfusion imaging: Moderate size, moderate intensity fixed anteroseptal defect. Dense breast shadow noted on raw imaging. Defect resolves with attenuation correction. Normal anterior wall motion. Defect c/w breast artifact. 2. The calculated left ventricular ejection fraction after stress: 71%. No left ventricular regional motion abnormality. Ht 162.6 cm (64) Wt 89.4 kg (197 lb) LMP 08/28/2017 BMI 33.81 kg/m?? Pulse From Oximetry: -- Physical Exam Airway Mallampati: II TM distance: <3 FB Neck ROM: full Cardiovascular Rhythm: regular Rate: normal Dental Pulmonary Breath sounds clear to auscultation Abdominal - normal exam Anesthesia Plan ASA 2 Anesthesia Type - general Block for post-op pain? Yes Post procedure pain management: fascia iliaca prn pacu. PAT Note Notes from 08/12/22 through 09/11/22 No notes of this type exist for this encounter. documented in this encounter Plan of Treatment Not on file documented as of this encounter Procedures Procedure Name Priority Date/Time Associated Diagnosis Comments ANESTHESIA INTUBATION Routine 09/12/2022 7:54 EST documented in this encounter Results * TX AN ELECTIVE ENDOTRACHEAL AIRWAY (09/12/2022 7:54 EST) Narrative [facility] POINT OF CARE - 09/12/2022 7:54 EST Carlos Gold MD ? 09/12/2022 ??8:01 Airway Date/Time: 09/12/2022 7:54 Urgency: elective Airway not difficult General Information and Staff Patient location during procedure: OR Anesthesiologist: Carlos Gold MD Performed: anesthesiologist Indications and Patient Condition Indications for airway management: anesthesia Sedation level: GA Preoxygenated: yes Patient position: sniffing Ventilation assessment: 1 - Easy Final Airway Details Final airway type: endotracheal airway Successful airway: ETT Cuffed: yes Successful intubation technique: video laryngoscopy [place] Facilitating devices/methods: intubating stylet Endotracheal tube insertion site: oral Blade: Simi Blade size: #3 ETT size (mm): 6.5 Cormack-Lehane Classification: grade I - full view of glottis Placement verified by: chest auscultation and capnometry Cuff volume (mL): 5 Measured from: lips ETT to lips (cm): 19 Number of attempts at approach: 1 Number of other approaches attempted: 1 R Justus Gold MD ANESTHESIA ORDERABL ES [facility] POINT OF CARE documented in this encounter Visit Diagnoses Not on filedocumented in this encounter Administered Medications Inactive Administered Medications - up to 3 most recent administrations Medication Order MAR Action Action Date Dose Rate Site ceFAZolin in dextrose 5 % (ANCEF) IVPB DUPLEX 2,000 mg 2,000 mg, intravenous, Administer over 30 Minutes, PRE-OP ONCE, 1 dose, On Thu09/12/22 at 0700, Type of Therapy: Prophylaxis, Suspected Indication (Select all that apply): Surgical prophylaxis, Routine, Preprocedure Given 09/12/2022 7:44 EST 2,000 mg dexAMETHasone (DECADRON) injection intravenous, PRN, Starting on Thu09/12/22 at 0748, Until Thu09/12/22 at 0908, Routine, Anesthesia Intraprocedure Given 09/12/2022 7:48 EST 8 mg dexmedeTOMIDine (PRECEDEX) injection intravenous, PRN, Starting on Thu09/12/22 at 0754, Until Thu09/12/22 at 0908, Routine, Anesthesia Intraprocedure Given 09/12/2022 7:54 EST 20 mcg ePHEDrine injection intravenous, PRN, Starting on Thu09/12/22 at 0817, Until Thu09/12/22 at 0908, Routine, Anesthesia Intraprocedure Given 09/12/2022 8:17 EST 10 mg fentaNYL citrate (PF) injection intravenous, PRN, Starting on Thu09/12/22 at 0748, Until Thu09/12/22 at 0908, Routine, Anesthesia Intraprocedure Given 09/12/2022 7:48 EST 100 mcg glycopyrrolate (ROBINUL) injection intravenous, PRN, Starting on Thu09/12/22 at 0817, Until Thu09/12/22 at 0908, Routine, Anesthesia Intraprocedure Given 09/12/2022 8:17 EST 0.2 mg ketAMINE (KETALAR) IV injection vial intravenous, PRN, Starting on Thu09/12/22 at 0748, Until Thu09/12/22 at 0908, Routine, Anesthesia Intraprocedure Given 09/12/2022 7:48 EST 20 mg ketOROLAC (TORADOL) injection intravenous, PRN, Starting on Thu09/12/22 at 0854, Until Thu09/12/22 at 0908, Routine, Anesthesia Intraprocedure Given 09/12/2022 8:54 EST 30 mg lactated ringers (LR) infusion intravenous, FA IP EQF CONTINUOUS PRN FOR ONE STEP MEDS, Starting on Thu09/12/22 at 0747, Until Thu09/12/22 at 0908, Routine, Anesthesia Intraprocedure New Bag 09/12/2022 7:47 EST lidocaine (PF) 20 mg/mL (2 %) injection intravenous, PRN, Starting on Thu09/12/22 at 0754, Until Thu09/12/22 at 0908, Routine, Anesthesia Intraprocedure Given 09/12/2022 7:54 EST 50 mg midazolam (PF) (VERSED) injection intravenous, PRN, Starting on Thu09/12/22 at 0748, Until Thu09/12/22 at 0908, Routine, Anesthesia Intraprocedure Given 09/12/2022 7:48 EST 2 mg ondansetron (PF) (ZOFRAN) injection intravenous, PRN, Starting on Thu09/12/22 at 0854, Until Thu09/12/22 at 0908, Routine, Anesthesia Intraprocedure Given 09/12/2022 8:54 EST 4 mg phenylephrine (EVA-SYNEPHRINE) injection intravenous, PRN, Starting on Thu09/12/22 at 0807, Until Thu09/12/22 at 0908, Routine, Anesthesia Intraprocedure Given 09/12/2022 8:45 EST 80 mcg Given 09/12/2022 8:35 EST 80 mcg Given 09/12/2022 8:17 EST 80 mcg propOFol (DIPRIVAN) injection intravenous, PRN, Starting on Thu09/12/22 at 0754, Until Thu09/12/22 at 0908, Routine, Anesthesia Intraprocedure Given 09/12/2022 7:54 EST 200 mg rocuronium (ZEMURON) injection intravenous, PRN, Starting on Thu09/12/22 at 0754, Until Thu09/12/22 at 0908, Routine, Anesthesia Intraprocedure Given 09/12/2022 7:54 EST 50 mg sugammadex (BRIDION) injection intravenous, PRN, Starting on Thu09/12/22 at 0855, Until Thu09/12/22 at 0908, Routine, Anesthesia Intraprocedure Given 09/12/2022 8:55 EST 200 mg documented in this encounter Care Teams Broommaker Relationship Specialty Start Date End Date Angelica Murphy [place] [address] [place] [address] PCP - General 08/05/21 documented as of this encounter
--- OUTSIDE RECORDS SUMMARY | 2024-05-27 02:36 | XMS_ITS | Encounter Summary ---
Author Organization [facility] Address [address] [place] [address] Care Team Providers Care Patient Clerical Assistant Name Role Phone Angelica Murphy TINY Primary Care Provider [phone] Reason for Visit * Reason Comments Chronic Pain Encounter Details Date Type Department Care Team (Latest Contact Info) Description 05/13/2022 10:00 EDT Office Visit [facility] Comprehensive Pain Program - [address] [place] [address] Julia Montez, PhD [address] [place] [address] [address] [place] [address] Anxiety about health (Primary Dx); [...] Progress Notes * Julia Montez, PhD - 05/13/2022 1000 EDT Comprehensive Pain Program Psychotherapy Appointment SUBJECTIVE: Eye Movement Desensitization and Reprocessing (EMDR) Presenting issue / Target memory: Pain in her mid-spine, right side down to foot. Tingly, zingy, burning sensation. Image: red-orange fire. Negative belief: I am incapable. Subjective Units of Disturbance (SUDS) / Pain Level 0 (none or neutral) to 10 (highest disturbance) SUDS/Pain Level at beginning of session: 7.5-8 SUDS/Pain Level at end of session: 7 (and she didn't think it could go any lower today) Desired positive belief: I am capable. Initial Validity of Cognition (VoC), 1 (completely false) to 7 (completely true): 3 VoC at end of session: not assessed Issues/Associations that arose during processing to re-evaluate at a later time: After fire sensation diminished, she became more aware of a knife stabbing pain in her hip, which also began to subside, as more of a throbbing sensation. OBJECTIVE: Arrived: prompt Session length: 55 minutes. Regarding response to bilateral stimulation, appeared to effectively respond to tactile/visual bilateral stimulation via electronic pulsers with lights. Preferred Tempo: 7 speed, 5 intensity Stabilization exercise at end of session: feeling calm, with fire subsided to a low, steady burn. ASSESSMENT: Diagnostic Impression: ICD-10-CM ICD-9-CM 1. Anxiety [...] imagery and mindfulness daily. PLAN: Continue with EMDR session, as I have available within the week (given graduation status after today). documented in this encounter Plan of Treatment Not on file documented as of this encounter Visit Diagnoses Diagnosis Anxiety about health- Primary Chronic pain syndrome documented in this encounter Care Teams Patient Clerical Assistant Relationship Specialty Start Date End Date Angelica Murphy [place] [address] [address] PCP - General 08/05/21 documented as of this encounter
--- OUTSIDE RECORDS SUMMARY | 2024-05-27 02:36 | XMS_ITS | Encounter Summary ---
Author Organization [facility] Address [facility] [address] [place] [address] Care Team Providers Care Furnace Combustion Analyst Name Role Phone Jim Wei MD Primary Care Provider [phone] Reason for Visit * Reason Comments Medication Refill Encounter Details Date Type Department Care Team (Late st Contact Info) Description 05/09/2011 [place] [address] Nacho Almonte MD [facility] [place] [address] Right shoulder pain (Primary Dx) Social History Tobacco Use Types [...] encounter Miscellaneous Notes * Telephone Encounter - Deana Perez LPN - 05/09/2011 10:16 AM EDT [facility] Medication Refill Request Phone Note Patient: Barbi Ivey [id number] Received call from Barbi Ivey requesting refill of the following medication Lidoderm Patch. Patient states that she has been tolerating this medication well with no troublesome side effects. After discussing with Nacho Almonte MD the following action was taken: _x_ Refill called into the patient???s pharmacy of choice. Refer to medication record for specific information. Patient knows how to contact the Pain Management Center and understands that she may do so at any time should she have further questions or concerns. Deana Perze LPN documented in this encounter Plan of Treatment Not on file documented as of this encounter Visit Diagnoses Diagnosis Right shoulder pain- Primary Pain in joint, shoulder region documented in this encounter Care Teams Furnace Combustion Analyst Relationship Specialty Start Date End Date Jim Wei MD [address] [place] [address] PCP - General 07/23/10 10/08/15 [facility] [address] [address] [place] [address] WebmasterTransitional Kindergarten Teacher Medicine 03/26/11 documented as of this encounter
--- OUTSIDE RECORDS SUMMARY | 2024-05-27 02:36 | XMS_ITS | Encounter Summary ---
Author Organization [facility] Address [address] [place] [address] Care Team Providers Care Retail Sales Teammate Name Role Phone Angelica Murphy TINY Primary Care Provider [phone] Reason for Visit * Reason Comments Post-OP Follow Up Encounter Details Date Type Department Care Team (Late st Contact Info) Description 09/22/2022 9:45 EST Post-op Visit [facility] [address] [place] [address] Farzad Garza MD [address] [place], [place] [id number] Left hip pain (Primary Dx) Social History Tobacco Use [...] Yes 08/28/2020 documented as of this encounter Ordered Prescriptions Prescription Sig Dispensed Refills Start Date End Da te methocarbamoL (ROBAXIN) 500 mg tablet Take 1 Tablet by mouth 4 times daily. 25 Tablet 09/22/2022 documented in this encounter Progress Notes * Farzad Garza MD - 09/22/2022 0945 EST The patient presents today approximately 10 days status post left hip arthroscopy labral repair. She is recovering well. She begins physical therapy this . No infectious symptoms reported. Pain controlled. No changes in sensation. A 10-point review of systems has been reviewed and all are negative unless noted above. Past Medical History: Diagnosis Date ??? Anxiety and depression ??? Lyme disease ??? Nephrolithiasis Social History Tobacco Use ??? Smoking status: Never ??? Smokeless tobacco: Never Substance Use Topics ??? Alcohol use: Yes Comment: Occasionally 1-2 drinks in a month Past Surgical History: Procedure Laterality Date ??? CARPAL TUNNEL RELEASE Right ??? HIP ARTHROSCOPY Left 09/12/2022 ??? SHOULDER SURGERY Right Allergies Allergen Reactions ??? Adhesive ??? Eggplant Urinary Obstruction ??? Lisinopril Other (See Comments) hypotension ??? Penicillins Hives Medications Prior to Today's Visit Medication Sig ??? aMILoride (MIDAMOR) 5 mg tablet Take 5 mg by mouth daily. ??? aspirin 325 mg tablet Take 1 Tablet by mouth daily for 14 days. Begin after indomethicin completes ??? busPIRone (BUSPAR) 5 mg tablet Take 5 mg by mouth 2 times daily. ??? cellulose, bulk, 100 % powder (Patient not taking: No sig reported) ??? cholecalciferol, Vitamin D3, 1,000 unit tablet Take 1,000 Units by mouth daily. ??? cyclobenzaprine (FLEXERIL) 10 mg tablet Take 10 mg by mouth 3 times daily. ??? DULoxetine (CYMBALTA) 60 mg capsule Take 60 mg by mouth daily. ??? hydrochlorothiazide (HYDRODIURIL) 25 mg tablet Take 25 mg by mouth 2 times daily. ??? indomethacin (INDOCIN) 25 mg capsule Take 1 Capsule by mouth 3 times daily. ??? LORazepam (ATIVAN) 0.5 mg tablet Take 0.5 mg by mouth as needed for Anxiety. ??? magnesium oxide (MAG-OX) 400 mg (241.3 mg magnesium) tablet TAKE ONE TABLET BY MOUTH EVERY DAY WITH MEALS ??? methocarbamoL (ROBAXIN) 500 mg tablet Take 1 Tablet by mouth 4 times daily. ??? naltrexone HCl (NALTREXONE ORAL) Take 6 mg by mouth daily. (Patient not taking: No sig reported) ??? omega-3 fatty acids 1,000 mg capsule capsule Take 1 g by mouth daily. ??? ondansetron (ZOFRAN) 4 mg tablet Take 1 Tablet by mouth daily as needed for Nausea. ??? oxyCODONE (ROXICODONE) 5 mg immediate release tablet Take 1 Tablet by mouth every 4 hours as needed for Pain. Daily Max: 30 mg ??? POTASSIUM CITRATE ORAL Take 10 mEq by mouth 3 times daily. ??? pregabalin (LYRICA) 75 mg capsule ??? SUMAtriptan (IMITREX) 100 mg tablet Take by mouth as needed. (Patient not taking: No sig reported) ??? UNABLE TO FIND Med Name: Mitochondrial take 3 caps daily ??? venlafaxine (EFFEXOR) 75 mg tablet Take 75 mg by mouth daily. (Patient not taking: No sig reported) No facility-administered medications prior to visit. OBJECTIVE: LMP 08/28/2017 On physical exam, the patient is found to be an alert and cooperative female who appears to be alert and oriented x 3. She is well-developed, well-nourished and in no significant distress. Breathing is unlabored. Skin is warm pink and dry to inspection and palpation. Sutures removed. Overlying skin intact. Surgical incisions healing well. No signs of infection. Distally neurovascular intact ASSESSMENT: 10 days status post left hip arthroscopy with labral repair, recovering well PLAN: The patient is recovering well. We reviewed her physical therapy protocol moving forward. Shevoices her understanding. All questions answered in detail. She will follow-up in approximately 4 to 5 weeks. I spent a total of 15 minutes on the date of this encounter meeting with the patient and reviewing documentation/coordinating care as described in the above note. Farzad Garza MD 09/22/2022 documented in this encounter Plan of Treatment Not on file documented as of this encounter Visit Diagnoses Diagnosis Left hip pain- Primary Pain in joint, pelvic region and thigh documented in this encounter Discontinued Medications Medication Sig Discontinue Reason Start Date End Da te methocarbamoL (ROBAXIN) 500 mg tablet Take 1 Tablet by mouth 4 times daily. Reorder 09/12/2022 09/22/2022 documented as of this encounter Care Teams Retail Sales Teammate Relationship Specialty Start Date End Date Angelica Murphy [place] [address] PCP - General 08/05/21 documented as of this encounter
--- OUTSIDE RECORDS SUMMARY | 2024-05-27 02:36 | XMS_ITS | Encounter Summary ---
Author Organization [facility] Address [facility] [place] [address] Care Team Providers Care Boilers Inspector Name Role Phone Arlen Ryan ND Primary Care Provider + Encounter Details Date Type Department Care Team (Late st Contact Info) Description 07/11/2009 Orders Only Urology at [facility] [place] [address] Emeka Hernandez Jr., MD [facility] [place] [place] [address] Social History Tobacco Use Types Packs/Day Years Used Date Smoking Tobacco: Never Assessed Sex and Gender Information Value Date Recorded Sex Assigned at Not on file Gender Identity Not on file Sexual Orientation Not on file documented as of this encounter Plan of Treatment Not on file documented as of this encounter Procedures Procedure Name Priority Date/Time Associated Diagnosis Comments SURGICAL PATHOLOGY REPORT Routine 07/11/2009 9:29 AM EST documented in this encounter Results * Surgical Pathology Report (07/11/2009 9:29 AM EST) Surgical Pathology Report [id number] ? Location: [facility] The signing pathologist has (i) examined the relevant preparation(s) for the specimen(s) and (ii) rendered or confirmed the diagnosis(es). . ?Pathology Surgical Pathology Final Report Clinical Information Specimen Submitted: A - Right ureteral stone, pelvis Clinical History: Not provided Clinical Diagnosis: Right ureteral stone Gross Description Labeled/Fixative: ? Right ureteral stone, fresh. Quantity/Size: ?Two, 0.3 cm and 0.6 cm. Tissue Description: ?? Brown, ovoid calculi. Sections/Process: ? Submitted for chemical analysis. ??aje/SNS Diagnosis Right ureteral calculus ??(see Comment). CR-0 07/16/09 [facility] 07/16/09 Verified by: ? Saleem MILNER, Vinh Hines. ?Pathologist ?(Electronic Signature) The attending pathologist whose signature appears on this report has reviewed all diagnostic slides and has edited the gross and/or microscopic portion of the report in rendering the final pathologic diagnosis. Comment The Report of Stone Analysis, order # [id number], has been received from the [facility], [address], [place], [place] ??[address]. For the full text of the [place] report please refer to Non-DH Documentation Pathology in the Clinical Information System (CIS). ASTER FREDERICK 07/11/2009 9:29 AM EST Emeka Hernandez Jr., MD PATHOLOGY/CYTOLOGY ORDERABLES ASTER FREDERICK documented in this encounter Visit Diagnoses Not on filedocumented in this encounter Care Teams Boilers Inspector Relationship Specialty Start Date End Date Arlen Ryan ND PCP - General Naturopathic Medicine 04/09/16 [facility] [address] [address] [place] [address] Real Estate EconomistInsurance Office Manager Medicine 03/26/11 documented as of this encounter
--- OUTSIDE RECORDS SUMMARY | 2024-05-27 02:36 | XMS_ITS | Encounter Summary ---
Author Organization [facility] Address [facility] [address] [place] [address] Care Team Providers Care Dump Grounds Checker Name Role Phone Jim Wei MD Primary Care Provider [phone] Encounter Details Date Type Department Care Team (Late st Contact Info) Description 01/07/2011 [place] [address] Emeka Hernandez Jr., MD [facility] [place] [address] Urolithiasis (Primary Dx) Social History Tobacco Use Types Packs/Day Years Used Date Smoking Tobacco: Never Assessed Sex and Gender Information Value Date Recorded Sex Assigned at Not on file Gender Identity Not on file Sexual Orientation Not on file documented as of this encounter Plan of Treatment Not on file documented as of this encounter Results * US retroperitoneal complete (04/02/2011 10:23 AM EDT) Anatomical Region Laterality Modality Abdomen Ultrasound 04/02/2011 10:2 3 AM EDT Narrative 04/02/2011 10:27 AM EDT ?Adult Renal Report ? (Signed Final 04/02/2011 10:26 am) Patient Info ID: ? [id number] ? : ??[birth year] (35 yrs) Name: ? BARBI IVEY ? Visit Date: 04/02/2011 10:20 am Procedures URETRO - Retroperitoneal Complete - [id number] ? [id number] Indications Urolithiasis Right Kidney Size (cm) ?L: ??10.3 Cortical Thickness: ?Normal Cortical Echogenicity: ?? Normal Hydronephrosis: ?No sonographic evidence Left Kidney Size (cm) ?L: ??10.5 Cortical Thickness: ?Normal Cortical Echogenicity: ?? Normal Hydronephrosis: ?No sonographic evidence Comment: ?Renal calculus Urinary Bladder Pre-void (cm) ? L: ??2.8 ? AP: ??6.1 ? TV: ??3.5 Vol (ml): ?31.3 Comment: ?Partially distended, normal contour Impression Ultrasound - ??Retroperitoneal Complete - Summary 6 mm. Left renal stone. ??No obstruction. Normal right kidney and bladder. I ??viewed the images and agree with the above interpretation. Thank you for allowing us to participate in the care of BARBI IVEY. Please do not hesitate to call if you have any questions. ?Meet Rojas MD Electronically Signed Final Report ?? 04/02/2011 10:26 am Procedure Note Meet Rojas MD - 04/02/2011 Adult Renal Report (Signed Final 04/02/2011 10:26 am) Patient Info ID: [id number] : [birth year] (35 yrs) Name: BARBI IVEY Visit Date: 04/02/2011 10:20 am Procedures URETRO - Retroperitoneal Complete - [id number] Indications Urolithiasis Right Kidney Size (cm) L: 10.3 Cortical Thickness: Normal Cortical Echogenicity: Normal Hydronephrosis: No sonographic evidence Left Kidney Size (cm) L: 10.5 Cortical Thickness: Normal Cortical Echogenicity: Normal Hydronephrosis: No sonographic evidence Comment: Renal calculus Urinary Bladder Pre-void (cm) L: 2.8 AP: 6.1 TV: 3.5 Vol (ml): 31.3 Comment: Partially distended, normal contour Impression Ultrasound - Retroperitoneal Complete - Summary 6 mm. Left renal stone. No obstruction. Normal right kidney and bladder. I viewed the images and agree with the above interpretation. Thank you for allowing us to participate in the care of BARBI IVEY. Please do not hesitate to call if you have any questions. Meet Rojas MD Electronically Signed Final Report 04/02/2011 10:26 am Emeka Hernandez Jr., MD IMG US GEN ORDERAB LES documented in this encounter Visit Diagnoses Diagnosis Urolithiasis- Primary Urinary calculus, unspecified Urolithiasis Urinary calculus, unspecified documented in this encounter Care Teams Dump Grounds Checker Relationship Specialty Start Date End Date Jim Wei MD [address] [place] [address] PCP - General 07/23/10 10/08/15 documented as of this encounter
--- OUTSIDE RECORDS SUMMARY | 2024-05-27 02:36 | XMS_ITS | Encounter Summary ---
Author Organization [facility] Address [address] [place] [address] Care Team Providers Care Sole Dyer Name Role Phone Angelica Murphy TINY Primary Care Provider [phone] Reason for Visit * Radiology Services (Routine/Next Available) - Authorization Not Required Specialty Diagnoses / Procedures Referred By Stephanie price Referred To Contact Diagnoses Left hip pain Procedures FL GUIDED LOCALIZATION, ASPIRATION, INJECTION, BIOPSY Farzad Garza MD [address] [place] [address] [facility] [place]erral ID Status Reason Start Date Expiration Date Visits Requested Visits Authorized [id number] Authorization Not Required 05/19/2022 1 1 Encounter Details Date Type Department Care Team (Latest Contact Info) Description 06/06/2022 13:44 EDT - 06/06/2022 23:59 EDT Hospital Encounter [facility] Xray [address] [place] [address] Discharge Disposition: Home or Self Care Social [...] Recorded In the last 10 days, have papa u been in contact with someone who [...] Yes 08/28/2020 documented as of this encounter Medications at [...] 25 mg by mouth 2 times daily. LORazepam (ATIVAN) 0.5 mg tablet Take 0.5 mg by mouth as needed for Anxiety. magnesium oxide (MAG-OX) 400 mg (241.3 mg magnesium) tablet TAKE ONE TABLET BY MOUTH EVERY DAY WITH MEALS 04/16/2022 naltrexone HCl (NALTREXONE ORAL) Take 6 mg by mouth daily. omega-3 fatty acids 1,000 mg capsule capsule Take 1 g by mouth daily. POTASSIUM CITRATE ORAL Take 10 mEq by mouth 3 times daily. pregabalin (LYRICA) 75 mg capsule 04/22/2022 SUMAtriptan (IMITREX) 100 mg tablet Take by mouth as needed. UNABLE TO FIND Med Name: Mitochondrial take 3 caps daily venlafaxine (EFFEXOR) 75 mg tablet Take 75 mg by mouth daily. documented as of this encounter Discharge Disposition Disposition Code Departure Means Destination Home or Self Care documented in this encounter Plan of Treatment Not on file documented as of this encounter Procedures Procedure Name Priority Date/Time Associated Diagnosis Comments FL GUIDED LOCALIZATION, ASPIRATION, INJECTION, BIOPSY Routine 06/06/2022 14:52 EDT Left hip pain documented in this encounter Visit Diagnoses Not on filedocumented in this encounter Administered Medications Inactive Administered Medications - up to 3 most recent administrations Medication Order MAR Action Action Date Dose Rate Site iohexoL (OMNIPAQUE 300) injection 10 mL 10 mL, intra-articular, Once in imaging, 1 dose, Starting on Thu06/06/22 at 1350, Until Thu06/06/22 at 1453, Routine Given 06/06/2022 14:53 EDT 10 mL Left Hip lidocaine 1 % injection 10 mL 10 mL, intra-articular, Once in imaging, 1 dose, Starting on Thu06/06/22 at 1351, Until Thu06/06/22 at 1453, Routine Given 06/06/2022 14:53 EDT 10 mL Left Hip triamcinolone acetonide (KENALOG-40) injection 40 mg 40 mg, intra-articular, Once in imaging, 1 dose, Starting on Thu06/06/22 at 1351, Until Thu06/06/22 at 1453, Routine Given 06/06/2022 14:53 EDT 40 mg Left Hip documented in this encounter Care Teams Sole Dyer Relationship Specialty Start Date End Date Angelica Murphy [place] [address] PCP - General 08/05/21 documented as of this encounter
--- OUTSIDE RECORDS SUMMARY | 2024-05-27 02:36 | XMS_ITS | Encounter Summary ---
Author Organization [facility] Address [address] [place] [address] Care Team Providers Care Skidway Worker Name Role Phone Angelica Murphy TINY Primary Care Provider [phone] Reason for Visit * Reason Onset Date Comments Physical Therapy 09/17/2022 Encounter Details Date Type Department Care Team (Late st Contact Info) Description 09/17/2022 Telephone [facility] Medicine [address] [place] [address] Zoie Lovell, FANNY Physical Therapy Social History Tobacco Use Types Packs/Day Years [...] encounter Miscellaneous Notes * Telephone Encounter - America Reyes RN - 09/17/2022 1518 EST Attempted to call ms. Ivey - no answer and voice mail message left relaying that Dr. Garza likes folks to start PT as soon as possible after surgery but anywhere in the first couple of weeks is okay. Requested that she call back with any other questions / concerns and to let us know if an updated PT referral is needed. * Telephone Encounter - Zoie Lovell RN - 09/17/2022 1108 EST T/C VM received from patient inquiring on when [facility] would like her to start PT post op. Requesting acall back documented in this encounter Plan of Treatment Not on file documented as of this encounter Visit Diagnoses Not on filedocumented in this encounter Care Teams Skidway Worker Relationship Specialty Start Date End Date Angelica [place] [address] PCP - General 08/05/21 documented as of this encounter
--- OUTSIDE RECORDS SUMMARY | 2024-05-27 02:36 | XMS_ITS | Encounter Summary ---
[place] [address] Care Team Providers Care Corporate Vp Advertising & Online Name Role Phone Jim Wei MD Primary Care Provider [phone] Reason for Visit * Reason Comments Other Encounter Details Date Type Department Care Team (Late st Contact Info) Description 06/11/2011 [place]phone [place] [phone] Shaunna Westbrook RN Other Social History Tobacco Use Types Packs/Day Years Used Date Smoking Tobacco: Never Alcohol Use Standard Drinks/Week Comments Yes 0 (1 standard drink = 0.6 oz pur e alcohol) occasional Sex and Gender Information Value Date Recorded Sex Assigned at Not on file Gender Identity Not on file Sexual Orientation Not on file documented as of this encounter Miscellaneous Notes * Telephone Encounter - Shaunna Westbrook RN - 06/11/2011 2:22 PM EDT [facility] Procedure Information Phone Note Patient: Barbi Ivey [id number] Barbi Ivey called today requesting information about her upcoming Ultrasound guided anterior scalene injection procedure to be performed in the [facility] by Nacho Almonte MD on 06/16/11. Patient???s questions regarding this procedure were answered to her satisfaction. Patient indicatedthat she understood information discussed. She will call to reschedule her 06/16/11 appointment if her BP remains elevated. She has an appointment with her PCP tomorrow, 06/12/11 to address the hypertension. She stated her most recent BP was 139/110. Barbi Ivey knows how to contact the [facility] staff and understands that she may do so at any time should she have further questions or concerns. Shaunna Westbrook, RN documented in this encounter Plan of Treatment Not on file documented as of this encounter Visit Diagnoses Not on filedocumented in this encounter Care Teams Corporate Vp Advertising & Online Relationship Specialty Start Date End Date Jim Wei MD [address] [place] [address] PCP - General 07/23/10 10/08/15 [facility] [address] [address] [place] [address] Bowling TeacherDistrict Captain Medicine 03/26/11 documented as of this encounter
--- OUTSIDE RECORDS SUMMARY | 2024-05-27 02:36 | XMS_ITS | Encounter Summary ---
Author Organization [facility] Address [address] [place] [address] Care Team Providers Care Web Content Manager Name Role Phone Angelica Murphy TINY Primary Care Provider [phone] Encounter Details Date Type Department Care Team (Latest Contact Info) Description 05/19/2022 Travel Social History Tobacco Use Types Packs/Day [...] on filedocumented in this encounter Care Teams Web Content Manager Relationship Specialty Start Date End Date Angelica Murphy [place] [address] PCP - General 08/05/21 documented as of this encounter
--- OUTSIDE RECORDS SUMMARY | 2024-05-27 02:36 | XMS_ITS | Encounter Summary ---
Author Organization [facility] Address [address] [place] [address] Care Team Providers Care Roll Dough Divider Name Role Phone Angelica Murphy TINY Primary Care Provider [phone] Reason for Referral * Radiology Services (Routine/Next Available) - Authorization Not Required Specialty Diagnoses / Procedures Referred By Stephanie price Referred To Contact Diagnoses Radial styloid tenosynovitis (de quervain) Procedures FL C-ARM WITH IMAGES FL C-ARM MINI WITH IMAGES Sagar José MD [address] [place] [id number] [facility] [place] Referral ID Status Reason Start Date Expiration Date Visits Requested Visits Authorized [id number] Authorization Not Required 09/11/2022 1 1 Reason for Visit * Auth/Cert (Routine) Specialty Diagnoses / Procedures Referred By Stephanie price Referred To Contact Diagnoses Arthralgia of left lower leg Arthralgia of left lower leg [M25.562] Procedures [place] ARTHROSCOPY HIP W/LABRAL REPAIR [place] ARTHROSCOPY HIP W/ACETABULOPLASTY [place] HIP SCOPE/REMV BODY,SYNOVECTOMY [place] HIP SCOPE/REMV BODY,PLASTY/RESECTN ARTHROSCOPY W/ LABRAL REPAIR ARTHROSCOPY HIP W/ACETABULOPLASTY ARTHROSCOPY, HIP, SURGICAL; W/SYNOVECTOMY CHONDROPLASTY, HIP, ARTHROSCOPIC Referral ID Status Reason Start Date Expiration Date Visits Re quested Visits Authorized [id number] 1 1 Encounter Details Date Type Department Care Team (Latest Contact Info) Description 09/12/2022 6:27 EST - 09/12/2022 23:59 EST Hospital Encounter [facility] Xray [address] [place] [address] Radial styloid tenosynovitis (de quervain) Discharge Disposition: Home or Self Care Social [...] 09/12/2022 09/22/2022 documented as of this encounter Discharge Disposition Disposition Code Departure Means Destination Home or Self Care documented in this encounter Plan of Treatment Not on file documented as of this encounter Procedures Procedure Name Priority Date/Time Associated Diagnosis Comments FL C-ARM WITH IMAGES Routine 09/12/2022 11:33 EST Radial styloid tenosynovitis (de quervain) documented in this encounter Results * FL C-ARM WITH IMAGES (09/12/2022 11:33 EST) Narrative 09/12/2022 11:33 EST This is a non-reportable exam. Sagar José MD IMG FLUOROSCOPY PAIGE KUMAR documented in this encounter Visit Diagnoses Diagnosis Radial styloid tenosynovitis (de quervain) documented in this encounter Care Teams Roll Dough Divider Relationship Specialty Start Date End Date Angelica Murphy FNP [address] [place] [address] PCP - General 08/05/21 documented as of this encounter
--- OUTSIDE RECORDS SUMMARY | 2024-05-27 02:36 | XMS_ITS | Encounter Summary ---
Author Organization [facility] Address [facility] [address] [address] Care Team Providers Care Juice Packaging Machines Setter Name Role Phone Jim Wei MD Primary Care Provider [phone] Reason for Visit * Reason Comments Nephrolithiasis urolithiasis Encounter Details Date Type Department Care Team (Late st Contact Info) Description 04/02/2011 11:00 AM EDT [place] [address] CLINIC, Sowmya Baez Jr., MD [facility] [place] [address] History of kidney stones (Primary Dx) Discharge Disposition: Home Social History [...] Sign Reading Time Taken Comments Blood Pressure 119/73 04/02/2011 10:46 AM EDT Pulse 80 04/02/2011 10:46 AM EDT Temperature - - Respiratory Rate - - Oxygen Saturation - - Inhaled Oxygen Concentration - - Weight 71.2 kg (157 lb) 04/02/2011 10:46 AM EDT Height 162.6 cm (5' 4) 04/02/2011 10:46 AM EDT Body Mass Index 26.95 04/02/2011 10:46 AM EDT documented in this encounter Patient Instructions * Patient Instructions* Sowmya Ingram Jr., MD - 04/02/2011 11:48 AM EDT Please collect 24 h urine at least 1 month prior to your next visit. Please call with any interval questions or problems. documented in this encounter Progress Notes * Sowmya Ingram Jr., MD - 04/02/2011 11:30 AM EDT Chief Complaint: hypercalciuric/hyperoxaluric urolithiasis History of Present Illness: Ms. Ivey is a very pleasant 35 years old woman who returns for urologic follow up regarding her stone disease. In December 2010, she had urinary frequency and right flank ache, 6/10 in severity, without associated fevers. She was diagnosed with a UTI (culture info not available), and took an antibiotic(?cipro) for 10 days. She had improvement in her symptoms after antibiotic therapy. Metabolic evaluation was notable for hypercalciuria, borderline [...] stones. She is comfortable and denies any lateralizing abd/flank pain, hematuria, nausea, vomiting, or fever. She notes occ'l increased urinary frequency, but denies specific dysuria. Review of systems: Right shoulder injury with right upper back pain and bursa surgery planned; weight gain with medications, otherwise unchanged since last visit of 03/2010 Past medical history: HTN, urolithiasis. Past surgical history: right ureteroscopy. Family history: no fam hx of stones Social History: no tobacco, social EtOH. Dietary History: Greater than 2 liters fluid intake/day; lower sodium intake; moderate purine/animal protein intake; low oxalate intake; improving dairy intake UROLOGIC MEDICATIONS: DRUG DOSE/ROUTE FREQUENCY Urocit-K 10 10 mEq Tablet Sustained Release 10 MEQ = 1 Tablet(s) / Oral Twice daily Hydrochlorothiazide 12.5 mg Tablet 12.5 MG = 1 Tablet(s) / Oral Twice daily Physical exam: General: She is sitting up comfortably, in no acute distress. Alert and oriented x3, pleasant and cooperative to exam, without undue anxiety, normal affect and mood. Abdomen: s/nd/nt. No rebound or guarding. She has no CVA tenderness to percussion . Laboratory studies: Urinalysis reveals no leukocyte esterase, nitrite, or heme. Laboratory studies: 24 hour urine: 02/13/10 (prior 10/04/09 and 08/14 2009): volume: 2.35 liters (normal / decreased at 2.24 and 1.30 liters). calcium: 149 (mildly elevated at 271 and 192 mg/day.) oxalate: 33 ( 27 and 53 mg/day.) uric acid: 733 (normal at 454 and 396 mg/day.) citrate: 522 (normal at 564 and 544 mg/day.) pH: 6.656 (7.133 and 6.463.) sodium: 78 (normal at 156 and 105 mmol/day) supersaturations: calcium oxalate: markedly improved 3.64 (prior elevated at 5.58 and 17.01) calcium phosphate: 1.39 (elevated at 2.43 and 2.38) uric acid: 0.17 (normal at 0.48 and 0.24) Imaging Studies: I have independently reviewed the renal u/s from today. It reveals no hydronephrosis or hydroureter. 5-6mm nonobstructing left renal stone noted. Impression/Plan: 1)Urolithiasis -- improved hypercalciuric borderline hypocitraturic urolithiasis. -will check BMP today to assess electrolytes -plan repeat 24 h urine prior to next year's visit 2)Left renal stone--nonobstructing, asymptomatic -discussed mgmt options of SWL, ureteroscopy, watchful waiting -she will monitor for now, declines intervention, will call if symptomatic - reimaging with repeat ultrasound next summer 3)Suspected UTI--resolved -will repeat urine culture today at her request given mild urinary frequency (?related to increasedfluid intake as well) HPI Review of Systems Physical Exam documented in this encounter Plan of Treatment Not on file documented as of this encounter Procedures Procedure Name Priority Date/Time Associated Diagnosis Comments BASIC METABOLIC PANEL Routine 04/02/2011 12:07 PM EDT History of kidney stones URINE CULTURE Routine 04/02/2011 11:56 AM EDT History of kidney stones documented in this encounter Results * US retroperitoneal complete (03/16/2012 11:50 AM EDT) Anatomical Region Laterality Modality Abdomen Ultrasound 03/16/2012 11:5 0 AM EDT Narrative 03/17/2012 9:31 AM EDT ? Renal ? (Signed Final 03/16/2012 12:06 pm) Patient Info ID: ? [id number] ? : ??[birth year] (36 yrs) Name: ? BARBI IVEY ? Visit Date: 03/16/2012 11:56 am Performed By Performed By: ?Chantale Jack RDMS Attending: ? Bob MILNER, Meet Lundy Referred By: ? SOWMYA INGRAM MD Service(s) Provided URETRO - Retroperitoneal Complete - [id number] ? [id number] Indications ? stones, ?hydro Right Kidney Size [...] Final 03/16/2012 12:06 pm) Patient Info ID: [id number] : [birth year] (36 yrs) Name: BARBI IVEY Visit Date: 03/16/2012 11:56 am Performed By Performed By: Chantale Jack [facility] Attending: Meet Rojas MD Referred By: SOWMYA INGRAM MD Service(s) Provided URETRO - Retroperitoneal Complete - [id number] Indications ? stones, ?hydro Right Kidney Size [...] Signed Final Report 03/16/2012 12:06 pm Sowmya Ingram Jr., MD [facility] GEN ORDERAB LES * (ABNORMAL) Basic metabolic panel (04/02/2011 12:07 PM EDT) Glucose 91 60 - 199 mg/dL CERNER MILLENNIUM Comment:Diabetes: >=200 mg/d L plus symptoms Blood Urea Nitrogen 7(L) 8 - 18 mg/dL CERNER MILLENNIUM Creatinine 0.59(L) 0.70 - 1.20 mg/dL CERNER MILLENNIUM Sodium 139 135 - 145 mmol/L CERNER [...] - 107 mmol/L CERNER MILLENNIUM Carbon Dioxide 31 22 - 31 mmol/L CERNER MILLENNIUM Anion Gap 6 5 - 15 mmol/L CERNER MILLENNIUM Calcium 9.4 8.5 - 10.5 mg/dL CERNER MILLENNIUM Est Glomerular Filtration Rate >60 >=60 CERNER MILLENNIUM Comment: The National Kidney Disease Education Program (NKDEP) has recommended all laboratories report estimated GFR (eGFR) along with plasma creatinine measurements to assist you with recognition of early kidney disease. Caveats: ??Plasma creatinine should be at steady-state (unchanged within the past week). For patients multiply eGFR by 1.2.MDRD equation has not been validated for pediatric patients and is only valid for patients with age >= 18 years. At present, NKDEP does NOT recommend using [...] with diabetic kidney disease. References: http://nkdep.nih.gov/resources/NKDEP_Suggestn4Labs_0606_508.pdf http://www.kidney.org/professionals/kls/pdf/faq_gfr.pdf Blood specimen (specimen) 04/02/2011 12:07 PM EDT 04/02/2011 12:25 PM EDT Sowmya Ingram Jr., MD CHEMISTRY ORDERABL ES [facility] * Urine culture Clean Catch Urine (04/02/2011 11:56 AM EDT) Urine Culture ? Patient Name: BARBI IVEY ? Ordered By: SOWMYA INGRAM JR ? MR#: [id number] ?LOC: ??5B ? /Sex: ?? 5 (35 years), ? Female ? PROCEDURE: Urine Culture ?SOURCE: U CC ? COLLECTED: 04/02/2011 11:56 ? STARTED: 04/02/2011 14:16 ? FINAL REPORT ? Final Report ? Verified: 08:07 ? No growth (Less than 1,000 cfu/ml). ? ____ [facility] Urine specimen obtained by clean catch procedure (specimen) 04/02/2011 11:56 AM EDT 04/02/2011 2:16 PM EDT Sowmya Ingram Jr., MD MICROBIOLOGY - GEN ERAL ORDERABLES [facility] documented in this encounter Visit Diagnoses Diagnosis History of kidney stones- Primary Personal history of urinary calculi History of kidney stones Personal history of urinary calculi documented in this encounter Care Teams Juice Packaging Machines Setter Relationship Specialty Start Date End Date Jim Wei MD [address] [place] [address] PCP - General 07/23/10 10/08/[address] [facility] [address] [address] [place] [address] Store AdministratorOnline Communications Specialist Medicine 03/26/11 documented as of this encounter
--- OUTSIDE RECORDS SUMMARY | 2024-05-27 02:36 | XMS_ITS | Encounter Summary ---
Author Organization [facility] Address [address] [place] [address] Care Team Providers Care Information Technology Data Analyst Name Role Phone Angelica Murphy TINY Primary Care Provider [phone] Encounter Details Date Type Department Care Team (Latest Contact Info) Description 09/10/2022 Travel Social History Tobacco Use Types Packs/Day [...] suspected to have Coronavirus/COVID-19? No / Unsure 09/10/2022 11:05 EST documented as of this encounter Functional [...] on filedocumented in this encounter Care Teams Information Technology Data Analyst Relationship Specialty Start Date End Date Angelica Murphy [place] [address] PCP - General 08/05/21 documented as of this encounter
--- OUTSIDE RECORDS SUMMARY | 2024-05-27 02:36 | XMS_ITS | Encounter Summary ---
Author Organization [facility] Address [address] [place] [address] Care Team Providers Care Network Infrastructure Architect Name Role Phone Angelica Murphy TINY Primary Care Provider [phone] Encounter Details Date Type Department Care Team (Latest Contact Info) Description 09/12/2022 Travel Social History Tobacco Use Types Packs/Day [...] on filedocumented in this encounter Care Teams Network Infrastructure Architect Relationship Specialty Start Date End Date Angelica Murphy F[place] [address] PCP - General 08/05/21 documented as of this encounter
--- OUTSIDE RECORDS SUMMARY | 2024-05-27 02:36 | XMS_ITS | Encounter Summary ---
Author Organization [facility] Address [address] [place] [address] Care Team Providers Care Simplex Printer Installer Name Role Phone Angelica Murphy TIYN Primary Care Provider [phone] Encounter Details Date Type Department Care Team (Latest Contact Info) Description 09/22/2022 Travel Social History Tobacco Use Types Packs/Day [...] on filedocumented in this encounter Care Teams Simplex Printer Installer Relationship Specialty Start Date End Date Angelica Murphy [place] [address] PCP - General 08/05/21 documented as of this encounter
--- OUTSIDE RECORDS SUMMARY | 2024-05-27 02:36 | XMS_ITS | Encounter Summary ---
Author Organization [facility] Address [address] [place] [address] Care Team Providers Care Ribbon Hanking Machine Operator Name Role Phone Angelica Murphy TINY Primary Care Provider [phone] Reason for Visit * Reason Onset Date Comments Appointment Related 05/12/2022 Encounter Details Date Type Department Care Team (Late st Contact Info) Description 05/12/2022 Telephone [facility] Rehabilitation Therapy - Medical Office Building [address] [place] [phone] Therapy, Physical Appointment Related Social History Tobacco Use Types Packs/Day Years [...] encounter Miscellaneous Notes * Telephone Encounter - Gerri Peterson - 05/12/2022 0834 EDT Telephone Information for Cancelled Appointments The patient responded to televox to cancel their appointment with Saranya Roy OT on 05/13/22 at 1100 The patient has no follow up appointments scheduled at this time Gerri Peterson 05/12/2022 documented in this encounter Plan of Treatment Not on file documented as of this encounter Visit Diagnoses Not on filedocumented in this encounter Care Teams Ribbon Hanking Machine Operator Relationship Specialty Start Date End Date Angelica Murphy [place] [address] [place] [address] PCP - General 08/05/21 documented as of this encounter
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
--- OUTSIDE RECORDS SUMMARY | 2024-05-27 02:36 | XMS_ITS | Encounter Summary ---
Author Organization [facility] Address [address] [place] [address] Care Team Providers Care Aerosol Line Operator Name Role Phone Angelica Murphy TINY Primary Care Provider [phone] Reason for Referral * Radiology Services (Routine/Next Available) - Authorization Not Required Specialty Diagnoses / Procedures Referred By Stephanie price Referred To Contact Diagnoses Left hip pain Procedures FL GUIDED LOCALIZATION, ASPIRATION, INJECTION, BIOPSY Farzad Garza MD [address] [address] [facility] Referral ID Status Reason Start Date Expiration Date Visits Requested Visits Authorized [id number] Authorization Not Required 05/19/2022 1 1 Reason for Visit * Reason Comments Follow-up Encounter Details Date Type Department Care Team (Late st Contact Info) Description 05/19/2022 11:30 EDT Office Visit [facility] - [facility] Orthopedics & Sport Medicine [address] [place] [address] Farzad Garza MD [address] [facility] [address] [place] [id number] Left hip pain (Primary Dx) Social History [...] as of this encounter Progress Notes * Farzad Garza MD - 05/19/2022 1130 EDT The patient presents today for surgical consultation. Please see prior notes for full HPI from our physician appeals assistant. At her last assessment, greater trochanteric bursal injection was placed. This was partially helpful in relieving her pain. She continues to have pain localized over the posterior lateral aspect of the left hip, the deep gluteal region, as well as the deep anterior groin region.MRI has been obtained over the interval and is suspicious for labral tear as well as wear at the chondral labral junction. She has not performed physical therapy yet, but this is scheduled to start this week. No acute trauma reported over the interval. A 10-point review of systems has been reviewed and all are negative unless noted above. Past Medical History: Diagnosis Date ??? Anxiety and depression ??? Lyme disease ??? Nephrolithiasis Social History Tobacco Use ??? Smoking status: Never Smoker ??? Smokeless tobacco: Never Used Substance Use Topics ??? Alcohol use: Yes Comment: Occasionally 1-2 drinks in a month Past Surgical History: Procedure Laterality Date ??? CARPAL TUNNEL RELEASE Right ??? SHOULDER SURGERY Right Allergies Allergen Reactions [...] mg by mouth daily. (Patient not taking: Reported on 11/13/2021) ??? omega-3 fatty acids 1,000 mg capsule [...] mg by mouth daily. (Patient not taking: Reported on 08/05/2021) No facility-administered medications prior to visit. OBJECTIVE: LMP 08/28/2017 On physical exam, the patient is found to be an alert and cooperative female who appears to be alert and oriented x 3. She is well-developed, well-nourished and in no significant distress. Breathing is unlabored. Skin is warm pink and dry to inspection and palpation. Left hip: Overlying skin intact. No gross deformity. Mild tenderness palpation over the greater trochanteric bursa, which the patient reports is much improved from prior examinations. Mild tendernesspalpation of the iliopsoas. Positive anterior impingement sign. Positive FADIR/mildly positive TAMEKA. Distally neurovascular intact throughout Prior radiographs and MRI reviewed. There is suspicion for an anterior superior labral tear with wear the chondral labral junction. ASSESSMENT: Generalized left hip tendinitis and greater trochanteric bursitis in the setting of underlying BETTIE and labral tear PLAN: I had detailed discussion with the patient today. We discussed the natural history of above-noted diagnosis. At this point, I would recommend physical therapy as many patients improved with a trial of therapy. We will plan to keep a close eye on the patient's condition and see her back in 2 months to reevaluate. Additionally, a guided intra-articular injection of the left hip would be beneficial from a therapeutic as well as a diagnostic standpoint. We have ordered this for her today. Shevoices understanding. All questions answered in detail. I spent a total of 20 minutes on the date of this encounter meeting with the patient and reviewing documentation/coordinating care as described in the above note. Farzad Garza MD 05/19/2022 documented in this encounter Plan of Treatment Not on file documented as of this encounter Procedures Procedure Name Priority Date/Time Associated Diagnosis Comments FL GUIDED LOCALIZATION, ASPIRATION, INJECTION, BIOPSY Routine 06/06/2022 14:52 EDT Left hip pain documented in this encounter Results * FL GUIDED INJECT/ASPIR LEFT HIP (06/06/2022 14:52 EDT) Anatomical Region Laterality Modality Radio Fluoroscop y 06/06/2022 15:5 3 EDT Impressions 06/06/2022 15:53 EDT Technically successful left hip joint injection. Narrative 06/06/2022 15:53 EDT INDICATION: hip pain. COMPARISON: Left hip radiograph 02/21/2020. TECHNIQUE: The procedure and its risks were discussed with the patient and oral and written consent were obtained. The left groin was prepped and draped in sterile fashion and local anesthesia was provided with 1% lidocaine. Multiple initial attempts at entering the hip joint resulted in bursa location. Eventual positioning of the needle tip to an intra-articular location was accomplished with a 22- gauge spinal needle. Intra-articular needle tip location was documented with the administration of trace amounts of Omnipaque 300. Following intra-articular tip positioning, 40 mg of triamcinolone and 3 milliliters of 1% lidocaine was administered without difficulty. The patient tolerated the procedure well and was discharged from the department without complication. 1.37 minutes of fluoroscopy time was utilized. Procedure Note Bhupinder Handy MD - 06/06/2022 INDICATION: hip pain. COMPARISON: Left hip radiograph 02/21/2020. TECHNIQUE: The procedure and its risks were discussed with the patient andoral and written consent were obtained. The left groin was prepped anddraped in sterile fashion and local anesthesia was provided with 1%lidocaine. Multiple initial attempts at entering the hip joint resulted inbursa location. Eventual positioning of the needle tip to anintra-articular location was accomplished with a 22-gauge spinal needle.Intra-articular needle tip location was documented with the administrationof trace amounts of Omnipaque 300. Following intra-articular tippositioning, 40 mg of triamcinolone and 3 milliliters of 1% lidocaine wasadministered without difficulty. The patient tolerated the procedure welland was discharged from the department without complication. 1.37 minutes of fluoroscopy time was utilized. IMPRESSION Technically successful left hip joint injection. Farzad Garza MD IMG FLUOROSCOPY PAIGE KUMAR documented in this encounter Visit Diagnoses Diagnosis Left hip pain- Primary Pain in joint, pelvic region and thigh documented in this encounter Care Teams Aerosol Line Operator Relationship Specialty Start Date End Date Angelica [place] [address] PCP - General 08/05/21 documented as of this encounter
--- OUTSIDE RECORDS SUMMARY | 2024-05-27 02:36 | XMS_ITS | Encounter Summary ---
Author Organization [facility] Address [facility] [place] [address] Care Team Providers Care Overhead Crane Operator Name Role Phone Jim Wei MD Primary Care Provider [phone] Encounter Details Date Type Department Care Team (Late st Contact Info) Description 06/16/2011 Orders [place] [id number] Nacho Almonte MD [facility] [place] [address] Social History Tobacco Use Types Packs/Day Years [...] on filedocumented in this encounter Care Teams Overhead Crane Operator Relationship Specialty Start Date End Date Jim Wei MD [address] [place] [address] PCP - General 07/23/10 10/08/15 [facility] [address] [address] [place] [address] Employment CoachCurriculum Developer Medicine 03/26/11 documented as of this encounter
--- OUTSIDE RECORDS SUMMARY | 2024-05-27 02:36 | XMS_ITS | Encounter Summary ---
Author Organization [facility] Address [address] [place] [address] Care Team Providers Care Rate Clerk Name Role Phone Angelica Murphy TINY Primary Care Provider Reason for Visit * Reason Onset Date Comments DME 09/02/2022 Encounter Details Date Type Department Care Team (Late st Contact Info) Description 09/02/2022 Telephone [facility] Orthopedics & Sport Medicine [address], [address] [place] [address] Zoie Lovell, FANNY DME Social History Tobacco Use Types Packs/Day Years [...] encounter Miscellaneous Notes * Telephone Encounter - Zoie Lovell RN - 09/02/2022 1107 EST T/C VM received from patient inquiring about hip [facility] and when they will be receiving this brace. T/C placed to Arturo Correa to inquire about this hip brace fitting. No answer VM left notifying him patient is in need of this brace fitting soon as her surgery is scheduled for 09/12/22. Left call back number in case he had any further questions. T/C placed back to patient, notified patient that Arturo Correa should be in contact with patient for brace fitting soon- provided her with contact information in case she wanted to reach out to him directly, patient verbalized understanding. documented in this encounter Plan of Treatment Not on file documented as of this encounter Visit Diagnoses Not on filedocumented in this encounter Care Teams Rate Clerk Relationship Specialty Start Date End Date Angelica Murphy [place] [address] PCP - General 08/05/21 documented as of this encounter
--- OUTSIDE RECORDS SUMMARY | 2024-05-27 02:36 | XMS_ITS | Encounter Summary ---
Author Organization [facility] [address] Care Team Providers Care Die Attacher Name Role Phone Jim Wei MD Primary Care Provider [phone] Encounter Details Date Type Department Care Team (Late st Contact Info) Description 04/02/2011 9:46 AM EDT - 04/02/2011 11:59 PM EDT Hospital [place] [address] Urolithiasis Social History Tobacco Use Types Packs/Day [...] Sig Dispensed Refills Start Date End Date OXYcodone (OXYCONTIN) 10 mg CR tabletIndications:Right shoulder pain Take 1-2 tablets by mouth every 12 hours for 30 days. 120 tablet 0 03/25/2011 04/24/2011 gabapentin (NEURONTIN) 600 mg tablet Take 600 mg by mouth 3 times daily. 09/05/2011 MULTIVITAMIN ORAL Take 1 tablet by mouth daily. 03/25/2011 05/14/2011 lidocaine (LIDODERM) 5 %(700 mg/patch)Indications:Ri ght shoulder pain Place 1 patch onto the skin every 24 hours. 30 patch 0 03/25/2011 05/09/2011 hydrochlorothiazide (HYDRODIURIL) 12.5 mg tablet 12.5 MG = 1 Tablet(s), PO, Twice daily 04/18/2010 10/09/2015 documented as of this encounter Plan of Treatment Not on file documented as of this encounter Procedures Procedure Name Priority Date/Time Associated Diagnosis Comments US RETROPERITONEAL COMPLETE Routine 04/02/2011 10:23 AM EDT Urolithiasis documented in this encounter Results * US retroperitoneal complete (04/02/2011 10:23 AM EDT) Anatomical Region Laterality Modality Abdomen Ultrasound 04/02/2011 10:2 3 AM EDT Narrative 04/02/2011 10:27 AM EDT ?Adult Renal Report ? (Signed Final 04/02/2011 10:26 am) Patient Info ID: ? [id number] ? : ??[birth year] (35 yrs) Name: ? BARBI IVEY ? Visit Date: 04/02/2011 10:20 am Procedures URETRO - Retroperitoneal Complete - [id number] ? [id number] Indications Urolithiasis Right Kidney Size (cm) ?L: [...] Final 04/02/2011 10:26 am) Patient Info ID: [id number] : [birth year] (35 yrs) Name: BARBI IVEY Visit Date: 04/02/2011 10:20 am Procedures URETRO - Retroperitoneal Complete - [id number] Indications Urolithiasis Right Kidney Size (cm) L: [...] unspecified documented in this encounter Care Teams Die Attacher Relationship Specialty Start Date End Date Jim Wei MD [address] [place] [address] PCP - General 07/23/10 10/08/15 [facility] [address] [address] [place] [address] Novelties Sales RepresentativeQuality Assurance Advisor Medicine 03/26/11 documented as of this encounter
--- OUTSIDE RECORDS SUMMARY | 2024-05-27 02:36 | XMS_ITS | Encounter Summary ---
Author Organization [facility] Address [address] [place] [address] Care Team Providers Care Infrastructure Solutions Architect Name Role Phone Angelica Murphy TINY Primary Care Provider [phone] Reason for Visit * Reason Onset Date Comments Appointment Related 05/12/2022 Encounter Details Date Type Department Care Team (Late st Contact Info) Description 05/12/2022 Telephone [facility] Rehabilitation Therapy - Medical Office Building [address] [place] [address] Saranya Roy, OTR/L [address] [facility] [place] [address] Appointment Related Social History Tobacco Use Types [...] encounter Miscellaneous Notes * Telephone Encounter - Saranya Roy OT - 05/12/20[address] [facility] REHABILITATION THERAPY - MEDICAL OFFICE [address] [address] Occupational Therapy Contact Note Pt reported she was unsure if she has enough visits for the year and did not want to reschedule. Ptto call front end drupal developer to schedule follow up with OT or notify OT of discontinuation/hold status. Saranya Roy OT 05/12/2022 16:06 documented in this encounter Plan of Treatment Not on file documented as of this encounter Visit Diagnoses Not on filedocumented in this encounter Care Teams Infrastructure Solutions Architect Relationship Specialty Start Date End Date Angelica Murphy [place] [address] [place] [address] PCP - General 08/05/21 documented as of this encounter
--- OUTSIDE RECORDS SUMMARY | 2024-05-27 02:36 | XMS_ITS | Encounter Summary ---
Author Organization [facility] Address [facility] [address] [place] [address] Care Team Providers Care Bull Gang Supervisor Name Role Phone Jim Wei MD Primary Care Provider [phone] Reason for Referral * Consultation (Routine) - Complete - Patient Will Schedule External Appt Specialty Diagnoses / Procedures Referred By Stephanie t Referred To Contact Acupuncture Diagnoses Right shoulder pain Jared Almonte MD [facility] [place] [address] Referral ID Status Reason Start Date Expiration Date Visits Requested Visits Authorized [id number] Complete - Patient Will Schedule External Appt Consult, Test & Treat 06/02/2011 2011 8 8 Reason for Visit * Reason Comments Joint Pain Right side Encounter Details Date Type Department Care Team (Late st Contact Info) Description 06/02/2011 9:15 AM EDT Follow[place] [address] Jared Almonte MD [facility] [place] [address] Right shoulder pain (Primary Dx) Discharge Disposition: [...] Sign Reading Time Taken Comments Blood Pressure 137/87 06/02/2011 9:14 AM EDT Pulse 78 06/02/2011 9:14 AM EDT Temperature - - Respiratory Rate - - Oxygen Saturation 100% 06/02/2011 9:14 AM EDT Inhaled Oxygen Concentration - - Weight 78 kg (172 lb) 06/02/2011 9:14 AM EDT Height 165.1 cm (5' 5) 06/02/2011 9:14 AM EDT Body Mass Index 28.62 06/02/2011 9:14 AM EDT documented in this encounter Progress Notes * Huyen Luis RN - 06/02/2011 3:06 PM EDTAddended by: HUYEN LUIS on: 06/02/2011 Modules accepted: Orders * Jared Almonte MD - 06/02/2011 2:10 PM EDTAddended by: JARED ALMONTE on: 06/02/2011 Modules accepted: Orders * Jared Almonte MD - 06/02/2011 10:07 AM EDT Followup for visit for a patient with right shoulder pain following workers compensation injury. Patient finds that if she takes 15 mg of MS Contin in the morning and 30 mg of MS Contin 12 hours later she is doing fairly well. She continues with her Neurontin 3 times a day and is using Lidoderm patches 2 patches at night and sleeping fairly well. She is continuing with her physical therapy and chiropractic therapy. Objective:BP 137/87 Pulse 78 Ht 165.1 cm (5' 5) Wt 78.019 kg (172 lb) BMI 28.62 kg/m2 SpO2 100% Patient is alert awake good interaction good spirits appears more comfortable. Still very tender exquisitely over the scalene muscle. 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 The radiologist did not comment upon this. Plan we'll continue with the current dosages of morphine Neurontin and Lidoderm patches. We'll set up a trigger point injection into the scalene muscle as already scheduled. We will him set up a opioid contract for now eventually that will be taken over by her primary caredoctor. Patient would like to try acupuncture as previously recommended and a referral is written. If symptoms persist despite trigger point injection in the scalene muscle and/or acupuncture therapy will consider a cervical epidural steroid in the future. Followup will be in one month or sooner for the trigger point injection. Approximately 15 minutes of direct qkbs-nx-svki time was spent with the patient which more than 10 minutes were spent reviewing the contract and these treatment options. documented in this encounter Plan of Treatment Scheduled Referrals Name Type Priority Associated Diagnoses Order Schedule REFERRAL FOR ACUPUNCTURE Outpatient Referral Routine Right shoulder pain Ordered: 06/02/2011 documented as of this encounter Procedures Procedure Name Priority Date/Time Associated Diagnosis Comments DRUG SCREEN WITH CONFIRMATION, URINE (SEND OUT) Routine 06/02/2011 10:00 AM EDT Right shoulder pain THC (MARIJUANA), URINE, CONFIRMATION Routine 06/02/2011 10:00 AM EDT documented in this encounter Results * THC (MARIJUANA), URINE, CONFIRMATION (06/02/2011 10:00 AM EDT) U THC Conf ? HI ? Expected Test ? Result ?LO ??Units ??Values Drug of Abuse, THC Conf, U ??GC/MS Confirmation - ? Positive ?THC ??THC Carboxylic Acid ?292 ? ng/mL ??Cutoff: <3 This report is intended for use in clinical monitoring and management of patients. It is not intended for use in employment-relat ed drug testing. Test Performed by: [place] [address] Manager Nursing Home: Lizet Cid, Ph.D. ASTER FREDERICK Urine specimen (specimen) 06/02/2011 10:00 AM EDT 06/02/2011 4:15 PM EDT Jared Almonte MD LAB SEND OUT ORDERAB LES [facility] * Drug Screen with Confirmation, Urine (06/02/2011 10:00 AM EDT) U TATE w/Conf ? HI ? Expected Test ? Result ?LO ??Units ??Values Pain Clinic Drug Screen, U ??Amphetamines ? Negative ?ng/mL ??Cutoff: 1000 ??MDMA (Ecstasy) ? Negative ?ng/mL ??Cutoff: ??500 ??Barbiturates ? Negative ?ng/mL ??Cutoff: ??200 ??Benzodiazepine s ?Negative ?ng/mL ??Cutoff: ??200 ??Cocaine Metabolite ? Negative ?ng/mL ??Cutoff: ??300 ??Methadone ?Negative ?ng/mL ??Cutoff: ??300 ??Opiates ?Positive ?ng/mL ??Cutoff: ??300 ??Phencyclidine ?Negative ?ng/mL ??Cutoff: ?? 25 ??Propoxyphene ? Negative ?ng/mL ??Cutoff: ??300 ??Tetrahydrocann abinols ?Positive ?ng/mL ??Cutoff: ?? 50 Drug confirmation ordered by reflex. ??Ethanol ?Negative ?mg/dL ??Cutoff: ?? 10 ??Confirmation - Opiates ?? Positive ??Codeine ?Negative ?ng/mL ??<100 ??Hydrocodone ?Negative ?ng/mL ??<100 ??Hydromorphone ?148 ? ng/mL ??<100 ??Morphine ? 7652 ?ng/mL ??<100 If heroin use suspected, test 17852, 1-eeia-txrkcb-mo rphine (6-JONA) heroin metabolite, can be added at an additional charge. ??Oxycodone ?Negative ?ng/mL ??<100 ??Oxymorphone ?Negative ?ng/mL ??<100 Test Performed by: [place] [address] Manager Nursing Home: Lizet Cid, Ph.D. ASTER BENAVIDEZJOHNNA Urine specimen (specimen) 06/02/2011 10:00 AM EDT 06/02/2011 4:15 PM EDT Jared Almonte MD URINE ORDERABLES Performing Organization Address City/State/[facility] [place] Phone Number [facility]ER[facility] documented in this encounter Visit Diagnoses Diagnosis Right shoulder pain- Primary Pain in joint, shoulder region documented in this encounter Care Teams Bull Gang Supervisor Relationship Specialty Start Date End Date Jim Wei MD [address] [place] [address] PCP - General 07/23/10 10/08/15 [facility] [address] [address] [place] [address] Editorial CartoonistWool Shearing Supervisor Medicine 03/26/11 documented as of this encounter
--- OUTSIDE RECORDS SUMMARY | 2024-05-27 02:36 | XMS_ITS | Encounter Summary ---
Author Organization [facility] Address [address] [place] [address] Care Team Providers Care Oxyhydrogen Welder Name Role Phone Angelica Murphy TINY Primary Care Provider [phone] Encounter Details Date Type Department Care Team (Late st Contact Info) Description 11/02/2023 Lab Requisition [facility] Pathology & Laboratory Medicine - [facility] [address] [place] [address] Jammie Jameson MD [address] [place] [address] [place] [address] Encounter for other general examination Social History Tobacco Use Types Packs/Day Years [...] Procedure Name Priority Date/Time Associated Diagnosis Comments PAP TEST Today 10/30/2023 12:21 EST Encounter for other general examination HPV DNA DETECTION WITH GENOTYPING, PCR Today 10/30/2023 12:21 EST Encounter for other general examination documented in this encounter Results * HUMAN PAPILLOMAVIRUS (HPV) DETECTION-HIGH RISK TYPES (10/30/2023 12:21 EST) HPV other High Risk types, PCR Negative Negative 11/09/2023 14:59 EDT [facility] Comment:No E6 or E7 mRNA is detected from HPV types 16,18,31,33,35,39,45,51,52,56,58,59,66, and 68 by monotype caster mediated amplification. Pap Test CERVIX UTERI STRUCTURE / Unknown 10/30/2023 12:21 EST 11/05/2023 16:05 EST Jammie Jameson MD MICROBIOLOGY - GENER AL ORDERABLES [facility] [address] [place] [id number] * PAP TEST (10/30/2023 12:21 EST) Specimens A. Cervix and/or Endocervix , ThinPrep Imaging System with Manual Evaluation 11/09/2023 14:59 T [facility] Specimen Adequacy Satisfactory for Evaluation - transformation zone component present 11/09/2023 14:59 T [facility] General Categorization Negative for intraepithelial lesion or malignancy 11/09/2023 14:59 [facility] Attestation . 11/09/2023 14:59 [facility] at 1459 Clinical History See below 11/09/19 24 14:59 EDT [facility] HPV The result for the Human Papillomavirus (HPV) Detection-High Risk Types is Negative. No E6 or E7 mRNA is detected from HPV types 16,18,31,33,35,39 ,45,51,52,56,58,5 9,66, and 68 by monotype caster mediated amplification.Karen ting was performed on specimen [id number] and was resulted on 11/09/2023 1459 EDT by DAXA, LAB INSTRUMENT RESULTS IN 11/09/2023 14:59 EDT [facility] Performing Lab [facility] 11/09/2023 14:59 EDT [facility] Scanned Images 11/09/2023 14:59 EDT [facility] Pap Test CERVIX UTERI STRUCTURE / Unknown 10/30/2023 12:21 EST 11/02/2023 12:37 EST Jammie Jameson MD PATHOLOGY ORDERABLES [facility] [address] [place] [address] documented in this encounter Visit Diagnoses Diagnosis Encounter for other general examination documented in this encounter Care Teams Oxyhydrogen Welder Relationship Specialty Start Date End Date Angelica [place] [address] PCP - General 08/05/21 documented as of this encounter
--- OUTSIDE RECORDS SUMMARY | 2024-05-27 02:36 | XMS_ITS | Encounter Summary ---
Author Organization [facility] Address [address] [place] [address] Care Team Providers Care Precision Farming Specialist Name Role Phone Angelica Murphy TINY Primary Care Provider [phone] Reason for Referral * PT/OT/ST (Routine/Next Available) - Closed Specialty Diagnoses / Procedures Referred By Stephanie price Referred To Contact Diagnoses Arthralgia of left lower leg Farzad Garza MD [address] [place] [address] [address] [place] [address] Referral ID Status Reason Start Date Expiration Date V isits Requested Visits Authorized [id number] Closed Specialty Services Required 07/21/2022 1 1 Question Answer Surgery (and Date): Left Hip Scope, DOS 09/12/2021 Reason for Request: Left Hip Scope, DOS 09/12/21 Comments [facility] [address] [place] [address], [address] [place], [place]?? [address] Phone:?? [phone] Fax:?? [phone] Reason for Visit * Reason Comments Follow-up Encounter Details Date Type Department Care Team (Late st Contact Info) Description 07/21/2022 10:15 EST Office Visit [facility] [address], [address] [place] [address] Farzad Garza MD [address] [address] Arthralgia of left lower leg (Primary Dx) Social History Tobacco Use Types [...] Progress Notes * Farzad Garza MD - 07/21/2022 1015 EST The patient presents today for reevaluation. Over the interval, diagnostic and therapeutic injection was placed. The patient temporary good relief from this injection but her symptoms have returned. Please see prior notes for full HPI. Is interested in surgery at this time given that she has failedimprove or prolonged nonoperative management. She continues to have pain localized over the posterior lateral aspect of the left hip, the deep gluteal region, as well as the deep anterior groin region. MRI has been obtained over the interval andis suspicious for labral tear as well as wear at the chondral labral junction. A 10-point review of systems has been [...] FADIR/mildly positive TAMEKA. Distally neurovascular intact throughout MRI again reviewed which demonstrates an anterior superior labral tear ASSESSMENT: Left hip BETTIE and labral tear PLAN: This patient has met my surgical selection [...] to medical records for scanning to chart I spent a total of 30 minutes on the date of this encounter meeting with the patient and reviewing documentation/coordinating care as described in the above note. Farzad Garza MD 07/21/2022 documented in this encounter Plan of Treatment Scheduled Referrals Name Type Priority Associated Diagnoses Order Schedule AMB CONS/FOLLOW UP PHYSICAL THERAPY - OUTSIDE OF NETWORK Outpatient Referral Routine/Next Available Arthralgia of left lower leg Expected: 08/20/2022 (Approximate), Expires: 07/21/2023 documented as of this encounter Visit Diagnoses Diagnosis Arthralgia of left lower leg- Primary Pain in joint, lower leg documented in this encounter Orders Equipment Count Last Ordered Date First Orde red Date GENERIC ORTHO VENDOR DME 1 07/21/2022 Case Request Count Last Ordered Date First Orde red Date CASE REQUEST OPERATING ROOM 1 07/21/2022 documented in this encounter Care Teams Precision Farming Specialist Relationship Specialty Start Date End Date Angelica Murphy [place] [address] [place] [address] PCP - General 08/05/21 documented as of this encounter
--- OUTSIDE RECORDS SUMMARY | 2024-05-27 02:36 | XMS_ITS | Referral Summary ---
Author Organization [facility] Address [address] [place] [address] Care Team Providers Care Cash Applications Manager Name Role Phone Angelica Murphy TINY Primary Care Provider [phone] Allergies Active Allergy Reactions Criticality Noted Date [...] Overview: Added automatically from request for surgery [id number] Social History Tobacco Use Types Packs/Day Years [...] Sexual Orientation Bisexual 10/17/2020 14 :51 EST Last Filed Vital Signs Vital Sign Reading [...] Body Mass Index 34.6 09/12/2022 0655 EST Functional Status Functional Status Response Date of [...] concentrating, remembering, or making decisions? Yes 08/28/2020 Plan of Treatment Not on file Medical Devices Implanted Type Area General Maintenance Engineer Device Identifier Shelf Expiration Date Model / Serial / Lot [place] Suture Fiberwire 1.8mm Q Fix [id number] - [id number] Implanted:Qty : 1 on 09/12/2022 by Farzad Garza MD at [facility] [place] Left: Hip [employer] [id number] 05/29/2025 [id number] / / [id number] [place] Suture Fiberwire 1.8mm Q Fix [id number] - [id number] Implanted:Qty : 1 on 09/12/2022 by Farzad Garza MD at [facility] [place] Left: Hip [employer] [id number] 05/16/2025 [id number] / / [id number] [place] Suture Fiberwire 1.8mm Q Fix [id number] - [id number] Implanted:Qty : 1 on 09/12/2022 by Farzad Garza MD at [facility] [place] Left: Hip [employer] [id number] 05/16/2025 [id number] / / [id number] Advance Directives For more information, please contact: [phone] * Full Code (Latest Code Status on File) Date Activated Date Inactivated Comments 09/12/2022 6:39 09/12/2022 14:41 Question Answer Comments When the patient has NO PULSE: Full Code / CPR Who Made the Decision? Patient Care Teams Cash Applications Manager Relationship Specialty Start Date End Date [place] [address] PCP - General 08/05/21
--- OUTSIDE RECORDS SUMMARY | 2024-05-27 02:36 | XMS_ITS | Encounter Summary ---
Author Organization [facility] [place] [address] Care Team Providers Care Hoop Puncher Name Role Phone Jim Wei MD Primary Care Provider [phone] Reason for Visit * Reason Onset Date Comments Other 06/02/2011 Encounter Details Date Type Department Care Team (Late st Contact Info) Description 06/02/2011 [place] [id number] Social, Worker, PAVING RAMMER Other Social History Tobacco Use Types Packs/Day [...] encounter Miscellaneous Notes * Telephone Encounter - Shaila Simental MSW - 07/21/2011 11:36 AM EST Comment: correct wc # CCM incorrectly recorded the wc put in beat adjuster's phone number as: [phone] when the Correct phone number for this put in beat adjuster: Bob Jose is: [phone]. Pain clinic RN phoned CCM to relay this error which is now rectified. P: CCM will be available for f/u intervention PRN. 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 Almonte [id number] Current Work Status: OOW since November 2010 Last day worked November 2010 Diagnosis:right shoulder pain Symptoms: shoulder pain, headaches, neck pain Surgery: shoulder surgery Date: 04-25-2011 Surgeon: Dr. Fleming, [facility] Current Treatment Plan: Pt is currently in PT tx 2 x week,and continues to be followed by , and her PCP. Pt is in the process of confirming if PCP will assume the role of prescriber for her pain management tx needs. Other pertinent information: Pt is currently receiving wage replacements from the [employer] insurance, but this only started a few weeks ago, and pt worked up until November 2010. 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 Pt is unsure if and when she will be recontacted by [employer] to take on another home care pt needing VINYL WELDER AND FABRICATOR care. Status of Workers Comp claim: Active and Open Elevator Tender: Not at this time. MMI: No Plan: Dr. Almonte evaluated pt and recommended she be scheduled for the TPI's and trial acupuncture tx. Pt was instructed to continue w/ the PT and chiropractor tx, and continue on the same medication regime. Pt signed a opioid contract today, and left a urine sample w/ the Pain clinic. She is aware of the need for the PCP to assume the role of prescriber, but is unclear when this is supposed to happen. will be sending his notes to PCP, and the plan may be clearer when she f/u at the Pain clinic for the TPI's on 07-02-11. also discussed the potential for a DAVIDSON in the future. [facility] introduced myself to pt explaining my role, and noting plan for me to f/u w/ her wc insurance to translate the tx plan needs, advocating for the Needed authorization. [facility] provided pt w/ my card and a [facility] W[facility] brochure, inviting her to f/u w/me if she incurs any problems w/ the wc authorization needs from today's appt. [facility] made a copy of the prescriptions for the acupuncture and her medication, noting plan to fax such to the insurance. [facility] phoned NCM: Kylee Cm# [phone] relaying the above tx recommendations. [facility] from his last appt, noting that she did not receive it yet. [facility] provided her w/ the f/u appt date for the TPI's noting plan to fax her today's note, wc form, and copy of the prescriptions needing authorization. [facility] relayed plan to f/u w/ pt at the 07-02 appt to assess further needs warranting [facility] intervention,[facility] as needed. P: Fax 's 05-14 and 06-02 notes and wc form to insurance, along w/ copies of prescriptions. CCM will plan to f/u w/ pt a the 07-02 appt to assess further needs warranting CCM intervention, advocating for her tx plan needs and wc benefits accordingly. Follow Up Appt: 07-02-11 Pain Clinic documented in this encounter Plan of Treatment Not on file documented as of this encounter Visit Diagnoses Not on filedocumented in this encounter Care Teams Hoop Puncher Relationship Specialty Start Date End Date Jim Wei MD [address] [place] [address] PCP - General 07/23/10 10/08/15 [facility] [address] [address] [place] [address] Glass Processing WorkerWelding Machine Operator Helper Arc Medicine 03/26/11 documented as of this encounter
--- OUTSIDE RECORDS SUMMARY | 2024-05-27 02:37 | XMS_ITS | Encounter Summary ---
Author Organization [facility] Address [address] [place] [address] Care Team Providers Care Fabric And Accessories Estimator Name Role Phone ySAlex mascorroyoandy BARROS Primary Care Provider + Reason for Referral * Radiology Services (Routine) - Closed Specialty Diagnoses / Procedures Referred By Stephanie t Referred To Contact Diagnoses Polyarthralgia Procedures XR SACROILIAC JOINTS 3 OR MORE VIEWS Audi Smart MD [address] [place] [phone] Referral ID Status Reason Start Date Expiration Date Visits Re quested Visits Authorized [id number] Closed 08/28/2020 1 1 * Radiology Services (Routine) - Closed Specialty Diagnoses / Procedures Referred By Stephanie price Referred To Contact Diagnoses Polyarthralgia Procedures XR CERVICAL SPINE 2-3 VIEWS Audi Smart MD [address] [place] [phone] Referral ID Status Reason Start Date Expiration Date Visits Re quested Visits Authorized [id number] Closed 08/28/2020 1 1 * Radiology Services (Routine) - Closed Specialty Diagnoses / Procedures Referred By Stephanie price Referred To Contact Diagnoses Polyarthralgia Procedures XR LUMBAR SPINE 2-3 VIEWS Audi Smart MD [address] [place] [phone] Referral ID Status Reason Start Date Expiration Date Visits Re quested Visits Authorized [id number] Closed 08/28/2020 1 1 Reason for Visit * Radiology Services (Routine) - Closed Specialty Diagnoses / Procedures Referred By Stephanie price Referred To Contact Diagnoses Polyarthralgia Procedures XR LUMBAR SPINE 2-3 VIEWS Audi Smart MD [address] [place] [phone] Referral ID Status Reason Start Date Expiration Date Visits Re quested Visits Authorized [id number] Closed 08/28/2020 1 1 Encounter Details Date Type Department Care Team (Latest Contact Info) Description 08/28/2020 15:56 EST - 08/28/2020 23:59 EST Hospital [facility] Radiology Xray - [address] [address] Polyarthralgia Discharge Disposition: Home or Self Care Social [...] Exposure Response Date Recorded In the last month, have you been in contact with someone who was confirmed or suspected to have Coronavirus / COVID-19? No / Unsure 08/28/2020 15:56 EST documented as of this encounter Functional [...] tablet Take 5 mg by mouth daily. cholecalciferol, Vitamin D3, 1,000 unit tablet Take 1,000 Units by mouth daily. cyclobenzaprine (FLEXERIL) 10 mg tablet Take 10 mg by mouth 3 times daily. hydrochlorothiazide (HYDRODIURIL) 25 mg tablet Take 25 mg by mouth 2 times daily. POTASSIUM CITRATE ORAL Take 10 mEq by mouth 3 times daily. venlafaxine (EFFEXOR) 75 mg tablet Take 75 mg by mouth daily. documented as of this encounter Discharge Disposition Disposition Code Departure Means Destination Home or Self Care documented in this encounter Plan of Treatment Not on file documented as of this encounter Procedures Procedure Name Priority Date/Time Associated Diagnosis Comments XR SACROILIAC JOINTS 3 OR MORE VIEWS Routine 08/28/2020 16:36 EST Polyarthralgia XR LUMBAR SPINE 2-3 VIEWS Routine 08/28/2020 16:36 EST Polyarthralgia XR CERVICAL SPINE 2-3 VIEWS Routine 08/28/2020 16:36 EST Polyarthralgia documented in this encounter Results * XR SACROILIAC JOINTS 3 OR MORE VIEWS (08/28/2020 16:36 EST) Anatomical Region Laterality Modality Spine Computed Radiogr aphy 08/28/2020 17:0 7 EST Impressions 08/28/2020 17:07 EST Normal examination. Narrative 08/28/2020 17:07 EST XR SACROILIAC JOINTS 3 OR MORE VIEWS ??08/28/2020 4:00 PM Clinical History/Comments: Chronic low back pain, evaluate for inflammatory vs degenerative sacroiliitis. Findings: Sacroiliac joints bilateral Findings: There is no evidence of fracture, dislocation or bony deformity. Procedure Note Meet Arroyo MD - 08/28/2020 XR SACROILIAC JOINTS 3 OR MORE VIEWS 08/28/2020 4:00 PM Clinical History/Comments: Chronic low back pain, evaluate for inflammatory vs degenerativesacroiliitis. Findings: Sacroiliac joints bilateral Findings: There is no evidence of fracture, dislocation or bony deformity. IMPRESSION Normal examination. Audi Smart MD [facility] DIAGNOSTIC IMAGI NG ORDERABLES * XR CERVICAL SPINE 2-3 VIEWS (08/28/2020 16:36 EST) Anatomical Region Laterality Modality Computed Radiogr aphy 08/28/2020 17:0 4 EST Narrative 08/28/2020 17:04 EST XR CERVICAL SPINE 2-3 VIEWS ??08/28/2020 4:00 PM Clinical History/Comments: Chronic neck pain. Findings: Two-view cervical spine 2 views of the cervical spine shows good alignment of vertebral bodies. No fracture or subluxation is seen. Procedure Note Meet Arroyo MD - 08/28/2020 XR CERVICAL SPINE 2-3 VIEWS 08/28/2020 4:00 PM Clinical History/Comments: Chronic neck pain. Findings: Two-view cervical spine 2 views of the cervical spine shows good alignmentof vertebral bodies. No fracture or subluxation is seen. Audi Smart MD [facility] DIAGNOSTIC IMAGI NG ORDERABLES * XR LUMBAR SPINE 2-3 VIEWS (08/28/2020 16:36 EST) Anatomical Region Laterality Modality Spine Computed Radiogr aphy 08/28/2020 17:0 6 EST Narrative 08/28/2020 17:06 EST XR LUMBAR SPINE 2-3 VIEWS ??08/28/2020 4:00 PM Clinical History/Comments: Chronic low back pain, evaluate for inflammatory vs degenerative. Findings: Three-view lumbar spine No comparison films Mild degenerative disc changes are noted throughout the lumbar spine. Mild facet arthropathy is noted from the lumbar 4 to the S1 level. Deformity of the anterior superior endplate of the lumbar 4 vertebral body is seen. This is most consistent with the presence of a limbus vertebral body, a normal variant. Arterial calcifications of the abdominal aorta are noted. Procedure Note Meet Arroyo MD - 08/28/2020 XR LUMBAR SPINE 2-3 VIEWS 08/28/2020 4:00 PM Clinical History/Comments: Chronic low back pain, evaluate for inflammatory vs degenerative. Findings: Three-view lumbar spine No comparison films Mild degenerative disc changes are noted throughout the lumbar spine. Mildfacet arthropathy is noted from the lumbar 4 to the S1 level. Deformity of the anterior superior endplate of the lumbar 4 vertebral bodyis seen. This is most consistent with the presence of a limbus vertebralbody, a normal variant. Arterial calcifications of the abdominal aorta are noted. Audi Smart MD [facility] DIAGNOSTIC IMAGI NG ORDERABLES documented in this encounter Visit Diagnoses Diagnosis Polyarthralgia Pain in joint, multiple sites documented in this encounter Care Teams Fabric And Accessories Estimator Relationship Specialty Start Date End Date Arlen Ryan ND [address] [place] [phone] PCP - General 02/21/20 08/04/21 documented as of this encounter
--- OUTSIDE RECORDS SUMMARY | 2024-05-27 02:37 | XMS_ITS | Encounter Summary ---
Author Organization [facility] Address [address] [place] [address] Care Team Providers Care Cad Cam Programmer Name Role Phone Angelica Murphy TINY Primary Care Provider [phone] Encounter Details Date Type Department Care Team (Late st Contact Info) Description 03/06/2022 Orders Only [facility] Comprehensive Pain Program - [address] [place] [address] Nikko Olivas MD [address] [place] [address] Chronic pain syndrome (Primary Dx) Social History Tobacco Use Types [...] as of this encounter Visit Diagnoses Diagnosis Chronic pain syndrome- Primary documented in this encounter Care Teams Cad Cam Programmer Relationship Specialty Start Date End Date Angelica Murphy FNP [address] [facility] [address] PCP - General 08/05/21 documented as of this encounter
--- OUTSIDE RECORDS SUMMARY | 2024-05-27 02:37 | XMS_ITS | Encounter Summary ---
Author Organization [facility] Address [address] [place] [address] Care Team Providers Care Gunnery/Ordnance Officer Name Role Phone SheriblakeAlex mascorrohanie FIORELLA Primary Care Provider + Reason for Visit * Reason Onset Date Comments Results 09/07/2020 Encounter Details Date Type Department Care Team (Late st Contact Info) Description 09/07/2020 Telephone [facility] Rheumatology & Immunology - [address] [address] Audi Smart MD [address] [place] [address], [address] [place] [address] Results Social History Tobacco Use Types Packs/Day [...] encounter Miscellaneous Notes * Telephone Encounter - Samantha Mcgrath RN - 09/10/2020 0950 EST Labs from 08/28 faxed to the provider as requested by pt. * Telephone Encounter - William Mccabe - 09/07/2020 0949 EST Patient calling to request that lab results from 08/28/[address] Murphy at [facility]. FYI. documented in this encounter Plan of Treatment Not on file documented as of this encounter Visit Diagnoses Not on filedocumented in this encounter Care Teams Gunnery/Ordnance Officer Relationship Specialty Start Date End Date Arlen Ryan ND [address] [place] [phone] PCP - General 02/21/20 08/04/21 documented as of this encounter
--- OUTSIDE RECORDS SUMMARY | 2024-05-27 02:37 | XMS_ITS | Encounter Summary ---
Author Organization [facility] Address [address] [place] [address] Care Team Providers Care Shafting Worker Name Role Phone Angelica Murphy TINY Primary Care Provider [phone] Encounter Details Date Type Department Care Team (Late st Contact Info) Description 08/07/[address] [facility] Nephrology - [address] [id number] Zulema Rodriguez MD [address] [place] [address], [address] [place] [address] Social History Tobacco Use Types Packs/Day Years [...] Procedure Name Priority Date/Time Associated Diagnosis Comments POTASSIUM Routine 01/16/2021 8:30 EDT POTASSIUM Routine 12/18/2020 8:15 EDT POTASSIUM Routine 11/02/2020 9:34 EST VITAMIN D (25,[place]) Routine 10/23/2020 10: 15 EST IBC Routine 10/23/2020 10:15 EST MAGNESIUM Routine 10/23/2020 10:15 EST IRON Routine 10/23/2020 10:15 EST BASIC METABOLIC PANEL (BMP) Routine 10/23/2020 10:15 EST POTASSIUM Routine 07/25/2020 9:43 EST POTASSIUM Routine 07/04/2020 11:45 EST BASIC METABOLIC PANEL (BMP) Routine 06/19/2020 16:00 EDT documented in this encounter Results * POTASSIUM (01/16/2021 8:30 EDT) Potassium, External 3.6 [facility] Blood VENOUS BLOOD / Unknown 01/16/2021 8:30 EDT Historical Provider CHEMISTRY & BLOOD GAS ORDERABLES [facility] * POTASSIUM (12/18/2020 8:15 EDT) Potassium, External 3.3 [facility] Blood VENOUS BLOOD / Unknown 12/18/2020 8:15 EDT Historical Provider CHEMISTRY & BLOOD GAS ORDERABLES [facility] * POTASSIUM (11/02/2020 9:34 EST) Potassium, External 3.6 [facility] Blood VENOUS BLOOD / Unknown 11/02/2020 9:34 EST Historical Provider CHEMISTRY & BLOOD GAS ORDERABLES [facility] * VITAMIN D (25,[place]) (10/23/2020 10:15 EST) 25OH Vitamin D Tot, External 24.9 [facility] Blood VENOUS BLOOD / Unknown 10/23/2020 10:15 EST Historical Provider CHEMISTRY & BLOOD GAS ORDERABLES [facility] * IRON (10/23/2020 10:15 EST) Iron, External [facility] Blood VENOUS BLOOD / Unknown 10/23/2020 10:15 EST Historical Provider CHEMISTRY & BLOOD GAS ORDERABLES [facility] * IBC (10/23/2020 10:15 EST) TIBC, External [address] [facility] Blood VENOUS BLOOD / Unknown 10/23/2020 10:15 EST Historical Provider CHEMISTRY & BLOOD GAS ORDERABLES [facility] * MAGNESIUM (10/23/2020 10:15 EST) Magnesium, External 1.9 [facility] Blood VENOUS BLOOD / Unknown 10/23/2020 10:15 EST Historical Provider CHEMISTRY & BLOOD GAS ORDERABLES [facility] * BASIC METABOLIC PANEL (BMP) (10/23/2020 10:15 EST) GFR, Calculated, External >=60 [facility] Glucose, Serum, External 97 [facility] Calculated Calcium, External [facility] BUN, External 15 [facility] Calcium, External 9.1 [facility] Chloride, External 101 [facility] CO2, External 28.9 [facility] Creatinine, External 0.7 [facility] Fasting?, External [facility] Potassium, External 2.9 [facility] Sodium, External 140 [facility] Blood VENOUS BLOOD / Unknown 10/23/2020 10:15 EST Historical Provider CHEMISTRY & BLOOD GAS ORDERABLES Performing Organization Address [facility]/ZIP Co de Phone Number [facility] * POTASSIUM (07/25/2020 9:43 EST) Potassium, External 3.6 [facility] Blood VENOUS BLOOD / Unknown 07/25/2020 9:43 EST Historical Provider CHEMISTRY & BLOOD GAS ORDERABLES Performing Organization Address City/[facility]/ZIP Co de Phone Number [facility] * POTASSIUM (07/04/2020 11:45 EST) Potassium, External 3.2 [facility] Blood VENOUS BLOOD / Unknown 07/04/2020 11:45 EST Historical Provider CHEMISTRY & BLOOD GAS ORDERABLES [facility] * BASIC METABOLIC PANEL (BMP) (06/19/2020 16:00 EDT) GFR, Calculated, External >=60 [facility] Glucose, Serum, External 101 [facility] Calculated Calcium, External [facility] BUN, External 12 [facility] Calcium, External 9.6 [facility] Chloride, External 102 [facility] CO2, External 31.1 [facility] Creatinine, External 0.84 [facility] Fasting?, External [facility] Potassium, External 2.9 [facility] Sodium, External 140 [facility] Blood VENOUS BLOOD / Unknown 06/19/2020 16:00 EDT Historical Provider MD CHEMISTRY & BLOOD GAS ORDERABLES [facility] documented in this encounter Visit Diagnoses Not on filedocumented in this encounter Care Teams Shafting Worker Relationship Specialty Start Date End Date Angelica Murphy [place] [address] PCP - General 08/05/21 documented as of this encounter
--- OUTSIDE RECORDS SUMMARY | 2024-05-27 02:37 | XMS_ITS | Encounter Summary ---
Author Organization [facility] Address [address] [place] [address] Care Team Providers Care Development Associate Name Role Phone Jim Wei MD Primary Care Provider Un available Encounter Details Date Type Department Care Team (Latest Contact Info) Description 10/25/2015 9:09 EST - 10/25/2015 23:59 EST Hospital Encounter [address] [address] Unknown, Provider, Discharge Disposition: Home or Self Care Social History Tobacco Use Types Packs/Day Years Used Date Smoking Tobacco: Never Assessed Sex and Gender Information Value Date Recorded Sex Assigned at Female 10/17/2020 14:51 EST Gender Identity Female 08/28/2020 15:56 EST Sexual Orientation Bisexual 10/17/2020 14 :51 EST documented as of this encounter Medications at Time of Discharge Medication Sig Dispensed Refills Start Date End Date hydrochlorothiazide (HYDRODIURIL) 25 mg tablet Take 25 mg by mouth 2 times daily. POTASSIUM CITRATE ORAL Take 10 mEq by mouth 3 times daily. amitriptyline (ELAVIL) 50 mg tablet Take 50 mg by mouth at bedtime. 01/30/2011 08/28/2020 gabapentin (NEURONTIN) 300 mg capsule Take 300 mg by mouth at bedtime as needed. 01/30/2011 08/28/2020 Multivitamins with Minerals Tab Take 1 Tab by mouth daily. 08/28/2020 oxycodone-acetaminophen (PERCOCET) 5-325 mg per tablet Take 1 Tab by mouth every 4 hours as needed. 08/28/2020 documented as of this encounter Discharge Disposition Disposition Code Departure Means Destination Home or Self Residential documented in this encounter Plan of Treatment Not on file documented as of this encounter Visit Diagnoses Not on filedocumented in this encounter Care Teams Development Associate Relationship Specialty Start Date End Date Jim Wei MD PCP - General 08/11/11 02/20/20 documented as of this encounter
--- OUTSIDE RECORDS SUMMARY | 2024-05-27 02:37 | XMS_ITS | Encounter Summary ---
Author Organization [facility] Address [address] [place] [address] Care Team Providers Care Estate Planner Name Role Phone Angelica Murphy TINY Primary Care Provider [phone] Reason for Visit * Reason Comments Chronic Pain Encounter Details Date Type Department Care Team (Latest Contact Info) Description 04/22/2022 11:00 EDT Office Visit [facility] Comprehensive Pain Program - [address] [place] [address] Julia Montez, PhD [address] [place] [address] [address] [place] [address] Anxiety about health (Primary Dx); [...] Progress Notes * Julia Montez, PhD - 04/22/2022 1100 EDT Comprehensive Pain Program Psychotherapy Appointment Provided information about clinical hypnosis, dispelling myths, and sharing empirically validated uses of hypnosis to help manage acute and chronic pain. After learning about clinical hypnosis and having opportunity to address any questions or concerns, verbal consent was provided to proceed with clinical hypnosis experience as part of our session. SUBJECTIVE: Shared that she went to [place] last week, feeling good about doing something she enjoys. Described electric cooccurrence that go through her right side when she lies down. She added that her lower back is the most painful. She described having a rotten spot in her back. Clinical Hypnosis Experience Treatment Focus for today's session: To be able to channel the electricity out and to not suffer somuch with her pain. Clinical Hypnosis Experience lasting 15-30 minutes. Discussed imagery and sensations that are most relaxing and elicited areas of life for desired improvement. Peaceful place, river/moving water and garden, like a jungle (chicken coop, barn). Dominant sense(s) appeared to be visual, audio. Relaxing imagery: Elicitation: eyes open close Intensification: solicited symbol of peace [stefan]. Body relaxation. Suggestions related to: solicited color of comfort [blue]. Cleansing, purifying water originating from greater source, moving through her nervous system. Ability to divert this comforting water whereit's needed. Water as nourishment. Reported experience: Reported feeling relaxed and appeared to experience time distortion, which is common trance phenomenon. Level of alertness pre--hypnosis (0, asleep to 100, normal):80 Level of alertness post-hypnosis (0, asleep to 100, normal):90 Level of Pain [0-10] Pre: 8 Level of Pain [0-10] Post: 7 OBJECTIVE: Arrived: prompt Session length: 55 minutes. Regarding response to hypnosis: appeared relaxed and comfortable throughout experience . ASSESSMENT: Diagnostic Impression: ICD-10-CM ICD-9-CM 1. Anxiety about health F41.8 300.09 2. Chronic pain syndrome G89.4 338.4 Treatment Process: fully engaged Obstacles to treatment: n/a Rationale for frequency and duration of therapy: Clinical hypnosis is offered in the context of time-limited treatment at the comprehensive pain program. Participants can continue to schedule clinical hypnosis if desired in future sessions, to help manage pain, develop healthy habits, reduce stress, and facilitate desired treatment outcomes. Recommendations: Listen to recording made during session, to practice deep relaxation skills and reinforce useful suggestions. PLAN: Continue with additional sessions, as desired. documented in this encounter Plan of Treatment Not on file documented as of this encounter Visit Diagnoses Diagnosis Anxiety about health- Primary Chronic pain syndrome documented in this encounter Care Teams Estate Planner Relationship Specialty Start Date End Date Angelica Murphy FNP [place] [address] PCP - General 08/05/21 documented as of this encounter
--- OUTSIDE RECORDS SUMMARY | 2024-05-27 02:37 | XMS_ITS | Encounter Summary ---
Author Organization [facility] Address [address] [place] [address] Care Team Providers Care Automatic Paint Sprayer Operator Name Role Phone Arlen Ryan ND Primary Care Provider + Reason for Visit * Reason Onset Date Comments Labs Only 10/24/2020 Encounter Details Date Type Department Care Team ([facility] st Contact Info) Description 10/24/2020 Telephone [facility] Primary Care [address] [facility] Floor [place], [place] [id number] Arlen Ryan ND [address] [place] [phone] Labs Only Social History Tobacco Use Types Packs/Day Years [...] encounter Miscellaneous Notes * Telephone Encounter - Jillian Carranza - 10/24/2020 0809 EST [facility] received via fax patients lab results from [facility]. Scanned into patientLeftronic. Had OV with Dr Benny Urias on 10/17/20 for a new patient consult. documented in this encounter Plan of Treatment Not on file documented as of this encounter Visit Diagnoses Not on filedocumented in this encounter Care Teams Automatic Paint Sprayer Operator Relationship Specialty Start Date End Date Arlen Ryan ND [address] [place] [phone] PCP - General 02/21/20 08/04/21 documented as of this encounter
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
--- OUTSIDE RECORDS SUMMARY | 2024-05-27 02:37 | XMS_ITS | Encounter Summary ---
Author Organization [facility] Address [address] [place] [address] Care Team Providers Care J2Ee Consultant Name Role Phone Angelica Murphy TINY Primary Care Provider [phone] Reason for Visit * Reason Comments Chronic Pain Encounter Details Date Type Department Care Team (Latest Contact Info) Description 03/04/2022 13:15 EDT Group Visit [facility] Comprehensive Pain Program - [address] [place] [address] Julia Montez, PhD [address] [place] [address] [address] [place] [address] Anxiety about health (Primary Dx); [...] syndrome documented in this encounter Care Teams J2Ee Consultant Relationship Specialty Start Date End Date Angelica [place] [address] PCP - General 08/05/21 documented as of this encounter
--- OUTSIDE RECORDS SUMMARY | 2024-05-27 02:37 | XMS_ITS | Encounter Summary ---
Author Organization [facility] Address [address] [place] [address] Care Team Providers Care Supervisor/Port Director Name Role Phone Angelica Murphy TINY Primary Care Provider [phone] Reason for Visit * Reason Onset Date Comments Appointment Related 04/24/2022 Encounter Details Date Type Department Care Team (Late st Contact Info) Description 04/24/[address] [address] Physical, Therapy Appointment Related Social History Tobacco Use Types [...] encounter Miscellaneous Notes * Telephone Encounter - Nubia Barker - 04/24/[address] [address] A call was placed to [facility] offering a physical therapy appointment the week of 04/28/22. A message was left with our office phone number for patient to call. Nubia Barker 04/24/2022 11:16 documented in this encounter Plan of Treatment Not on file documented as of this encounter Visit Diagnoses Not on filedocumented in this encounter Care Teams Supervisor/Port Director Relationship Specialty Start Date End Date Angelica Murphy FNP [place] [address] PCP - General 08/05/21 documented as of this encounter
--- OUTSIDE RECORDS SUMMARY | 2024-05-27 02:37 | XMS_ITS | Encounter Summary ---
Author Organization [facility] Address [address] [place] [address] Care Team Providers Care Car Retarder Operator Name Role Phone Angelica Murphy TINY Primary Care Provider [phone] Encounter Details Date Type Department Care Team (Late st Contact Info) Description 03/11/2022 Documentation Visit [facility] Comprehensive Pain Program [place] [address] Geoff Mcconnell, PT [address] [place] [phone] Social History Tobacco Use Types Packs/Day Years [...] as of this encounter Progress Notes * Geoff Mcconnell, PT - 03/11/2022 1902 EDT REHABILITATION THERAPIES [facility] COMPREHENSIVE PAIN PROGRAM - [place] [address] [place] [address] Physical Therapy Contact Note Barbi Stephani Ivey attended the education course, Introduction to the Pain Protection System on 03/11/2022 as part of [facility] group of the Comprehensive Pain Program (CPP). Topics introduced and discussed include central nervous system, peripheral nervous system, nociception, sensitization, and neurop lasticity in relation to chronic pain. There was no charge for the visit. GEOFF MCCONNELL, PT 03/11/2022 19:02 documented in this encounter Plan of Treatment Not on file documented as of this encounter Visit Diagnoses Not on filedocumented in this encounter Care Teams Car Retarder Operator Relationship Specialty Start Date End Date [place] [address] PCP - General 08/05/21 documented as of this encounter
--- OUTSIDE RECORDS SUMMARY | 2024-05-27 02:37 | XMS_ITS | Encounter Summary ---
Author Organization [facility] Address [address] [place] [address] Care Team Providers Care Camp Head Counselor Name Role Phone Jim Wei MD Primary Care Provider Un available Encounter Details Date Type Department Care Team (Late st Contact Info) Description 09/19/[address] [facility] Lab - Main [address] [id number] Naga Bhatti MD Social History Tobacco Use Types Packs/Day Years Used Date Smoking Tobacco: Never Assessed Sex and Gender Information Value Date Recorded Sex Assigned at Female 10/17/2020 14:51 EST Gender Identity Female 08/28/2020 15:56 EST Sexual Orientation Bisexual 10/17/2020 14 :51 EST documented as of this encounter Plan of Treatment Not on file documented as of this encounter Procedures Procedure Name Priority Date/Time Associated Diagnosis Comments TSH Routine 09/19/2016 11:21 EST documented in this encounter Results * TSH (09/19/2016 11:21 EST) [place] [facility] [place] [facility] 2.81 0.35 - 5.50 uIU/mL 09/19/2016 12:21 EST [facility] 09/19/2016 11:2 1 EST 09/19/2016 11:21 EST Narrative [facility] - 09/19/2016 12:21 EST Does PT Have a Latex Allergy? NO Naga Bhatti MD CHEMISTRY & BLOOD GA S ORDERABLES [facility] documented in this encounter Visit Diagnoses Not on filedocumented in this encounter Care Teams Camp Head Counselor Relationship Specialty Start Date End Date Jim Wei MD PCP - General 08/11/11 02/20/20 documented as of this encounter
--- OUTSIDE RECORDS SUMMARY | 2024-05-27 02:37 | XMS_ITS | Encounter Summary ---
Author Organization [facility] Address [address] [place] [address] Care Team Providers Care Payable Manager Name Role Phone Jim Wei MD Primary Care Provider Un available Encounter Details Date Type Department Care Team (Latest Contact Info) Description 03/21/2016 9:26 EDT - 03/21/2016 23:59 EDT Hospital Encounter [address] [address] Unknown, Provider, Discharge Disposition: Home or Self [...] Code Departure Means Destination Home or Self [facility]it[facility] documented in this encounter Plan of Treatment Not on file documented as of this encounter Visit Diagnoses Not on filedocumented in this encounter Care Teams Payable Manager Relationship Specialty Start Date End Date Jim Wei MD PCP - General 08/11/11 02/20/20 documented as of this encounter
--- OUTSIDE RECORDS SUMMARY | 2024-05-27 02:37 | XMS_ITS | Encounter Summary ---
Author Organization [facility] Address [address] [place] [address] Care Team Providers Care Engagement Manager Name Role Phone Arlen Ryan ND Primary Care Provider + Angelica Murphy Primary Care Provider [phone] Encounter Details Date Type Department Care Team (Late st Contact Info) Description 02/21/2020 Results Only Imaging [facility] [place] Radiology Results [address] [place], [place] [address] Arlen Ryan ND [address] [place] [address] Social History Tobacco Use Types Packs/Day Years [...] Name Priority Date/Time Associated Diagnosis Comments XR HIPS BILATERAL 3-4 VIEWS, OPTIONAL PELVIS 02/21/2020 10:49 EDT documented in this encounter Results * XR HIPS BILATERAL 3-4 VIEWS, OPTIONAL PELVIS (02/21/2020 10:49 EDT) Anatomical Region Laterality Modality Bilateral Computed Radiogr aphy 02/21/2020 10:4 6 EDT Narrative 02/21/2020 10:49 EDT ? EXAM: RADIOLOGY/HIPS BILAT 4 VIEWS W PELV EX. D/ (0936) ? CLINICAL INFORMATION: ? M25.551, M25.552 BILATERAL HIP PAIN ? M53.3 LEFT SI JOINT PAIN ? INDICATION: M25.551, M25.552 BILATERAL HIP PAIN, M53.3 LEFT SI JOINT ? PAIN BILATERAL HIP PAIN, LEFT SI JOINT PAIN ? TECHNIQUE: ??AP view of the pelvis and 2 views of both hips ? COMPARISON: Right hip radiograph 02/27/2017 ? FINDINGS: Both hip joints spaces are preserved. No acute fracture or ? acute osseous abnormality is detected. The bony pelvis is intact. The ? sacroiliac joints appear normal. There is mild degenerative ? spondylosis at L3-4. ? IMPRESSION: ? 1. No acute osseous abnormality. ? 2. Hip joint spaces preserved. ? 3. Sacroiliac joints appear normal. ? REPORT SIGNED IN OTHER VENDOR SYSTEM 02/21/2020 ?Reported By: Saqib Garg MD ? CC: ? Transcribed Date/Time: 02/21/2020 (1508) ? Car Escort: ? Printed Date/Time: 02/21/2020 (4578) ? PAGE 1 ? Signed Report ? Procedure Note Saqib Garg MD - 02/21/2020 EXAM: RADIOLOGY/HIPS BILAT 4 VIEWS W PELV EX. D/ (0936) CLINICAL INFORMATION: M25.551, M25.552 BILATERAL HIP PAIN M53.3 LEFT SI JOINT PAIN INDICATION: M25.551, M25.552 BILATERAL HIP PAIN, M53.3 LEFT SIJOINT PAIN BILATERAL HIP PAIN, LEFT SI JOINT PAIN TECHNIQUE: AP view of the pelvis and 2 views of both hips COMPARISON: Right hip radiograph 02/27/2017 FINDINGS: Both hip joints spaces are preserved. No acute fractureor acute osseous abnormality is detected. The bony pelvis is intact.The sacroiliac joints appear normal. There is mild degenerative spondylosis at L3-4. IMPRESSION: 1. No acute osseous abnormality. 2. Hip joint spaces preserved. 3. Sacroiliac joints appear normal. REPORT SIGNED IN OTHER VENDOR SYSTEM 02/21/2020 Reported By: Saqib Garg MD CC: Transcribed Date/Time: 02/21/2020 (1049) Car Escort: Printed Date/Time: 02/21/2020 (1048) PAGE 1 Signed Report Arlen Ryan ND IMG DIAGNOSTIC I MAGING ORDERABLES documented in this encounter Visit Diagnoses Not on filedocumented in this encounter Care Teams Engagement Manager Relationship Specialty Start Date End Date Arlen Ryan ND [address] [place] [phone] PCP - General 02/21/20 08/04/21 Angelica Murphy FNP [address] [place] [address] [place] [address] PCP - General 08/05/21 documented as of this encounter
--- OUTSIDE RECORDS SUMMARY | 2024-05-27 02:37 | XMS_ITS | Encounter Summary ---
Author Organization [facility] Address [address] [place] [address] Care Team Providers Care Manager Of Business Name Role Phone Angelica Murphy TINY Primary Care Provider [phone] Reason for Visit * Reason Comments Chronic Pain Encounter Details Date Type Department Care Team (Latest Contact Info) Description 04/08/2022 10:00 EDT Office Visit [facility] Comprehensive Pain Program - [address] [place] [address] Julia Montez, PhD [address] [place] [address] [address] [place] [address] Anxiety about health (Primary Dx); [...] Progress Notes * Julia Montez, PhD - 04/08/2022 1000 EDT Comprehensive Pain Program Eye Movement Desensitization and Reprocessing (EMDR) Preparation SUBJECTIVE: After providing information about EMDR and addressing questions and concerns, was eager to begin EMDR, as this treatment approach had not been tried in the past and was receptive to learning about the methodology, which is different than traditional talk therapy. To prepare for EMDR treatment, we focused on strategies to decrease emotional distress that may surface during or in between sessions. Barbi understood and demonstrated the nonverbal stop signal,learned about imagery strategies to contain or compartmentalize thoughts, memories, or feelings that were not useful at any given time and to help create a greater sense of calm and security. Container cue word: jar (wide mouth) When practicing using the container strategy, reported distress level decreased by using container with and without slow bilateral stimulation. Secure place cue word: [place] Metaphor: train When asked about which areas to target, responded she would like to get unstuck emotionally. Encouraged creation of memory timeline, especially those prior to age 10 if possible, and prior to age 20, making note of both positive and negative events that formed the person they are today. OBJECTIVE: Arrived: promptly Session length: 55 minutes. Regarding Barbi's response to bilateral stimulation: appeared to effectively respond to tactile/visual bilateral stimulation via electronic pulsers with lights and stated a preference for tactile bilateral stimulation. Preferred tempo: 7 speed, 5 intensity. EMDR INFORMED CONSENT: The concept of Eye Movement Desensitization and Reprocessing (EMDR) was described to the patient. Patient has been informed of anticipated benefits and possible risks. Patient understands informationprovided regarding EMDR, has had the opportunity to ask questions, and all questions have been answered to patient's satisfaction. Patient consents to EMDR treatment, with review of consent form and verbal consent provided during telehealth visits and a signature obtained and scanned to chart during in-person visits. Education: Topics: Discussed unique aspects of EMDR, to enable an informed decision regarding treatment consent. Methods: verbal and visual Taught to: patient Barriers: none Outcomes: verbalized understanding ASSESSMENT: Diagnostic Impression: ICD-10-CM ICD-9-CM 1. Anxiety about health F41.8 300.09 2. Chronic pain syndrome G89.4 338.4 Treatment Process: fully engaged Obstacles to treatment: n/a Rationale for frequency and duration of therapy: we are proceeding with a brief course of EMDR treatment (duration to be determined), as a pain protocol has been proven to be effective in treating chronic pain with and without a traumatic onset. She can also address emotional trauma, which can influence the experience of chronic pain. Recommendations: Proceed with 2-3 EMDR sessions to enable Barbi to observe efficacy of treatment method. Homework: Practice using container strategy, with slow butterfly tapping. Practice going to calm, secure place daily. PLAN: Continue with short-term course of EMDR treatment, depending on schedule capacity, unless Barbi wants to discontinue and/or convert to another form of time-limited treatment that may include Cognitive-Behavioral Treatment And/or Acceptance and Commitment Therapy. If additional sessions are needed, Barbi may choose to work with an EMDR psychotherapist in the community. documented in this encounter Plan of Treatment Not on file documented as of this encounter Visit Diagnoses Diagnosis Anxiety about health- Primary Chronic pain syndrome documented in this encounter Care Teams Manager Of Business Relationship Specialty Start Date End Date Angelica Murphy [place] [address] PCP - General 08/05/21 documented as of this encounter
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
--- OUTSIDE RECORDS SUMMARY | 2024-05-27 02:37 | XMS_ITS | Encounter Summary ---
Author Organization [facility] Address [address] [place] [address] Care Team Providers Care Photogravure Press Operator Name Role Phone Angelica Murphy TINY Primary Care Provider [phone] Reason for Visit * Reason Onset Date Comments Appointment Related 03/07/2022 Encounter Details Date Type Department Care Team (Late st Contact Info) Description 03/07/2022 Telephone [facility] Rehabilitation Therapy - Medical Office Building [address] [place] [address] [phone] Therapy, Physical Appointment Related Social History Tobacco [...] * Telephone Encounter - Gerri Peterson - 03/07/2022 1049 EDT [facility] REHABILITATION THERAPY - MEDICAL OFFICE BUILDING [address] [place] [phone] Telephone Intake Information for Scheduling NEW Patients for Therapy Script/referral: In EPIC Referral date: 03/06/22 Referring Provider: rosanne hall md Diagnosis: CPP Primary Insurance: [place] Medicaid ACO plan- REFERRAL REQUIRED. No extension process required If Medicaid (age 21+): Have you been seen for therapy since August of this year? Yes; By whom? PATIENT UNSURE OF NAME; How many visits have you had since August of this year? UNSURE, THINKS ABOUT 15 - Notified patient that that Medicaid will only cover 30 total therapy visits (PT, OT,and LAST CLEANER combined) between August and August 30 of this year. If the patient has [id number] visits already, further therapy may not be covered by their insurance. Notes: ASKED PATIENT TO ARRIVE EARLY FOR PAPERWORK. PATIENT IS TRYING TO LINE ALL APPOINTMENTS UP WITH CPP APPOINTMENTS DUE TO TRAVEL DISTANCE Gerri Peterson 03/07/2022 documented in this encounter Plan of Treatment Not on file documented as of this encounter Visit Diagnoses Not on filedocumented in this encounter Care Teams Photogravure Press Operator Relationship Specialty Start Date End Date Angelica Murphy [place] [address] PCP - General 08/05/21 documented as of this encounter
--- OUTSIDE RECORDS SUMMARY | 2024-05-27 02:37 | XMS_ITS | Encounter Summary ---
Author Organization [facility] Address [address] [place] [address] Care Team Providers Care Mix Crusher Operator Name Role Phone SyAlex mascorrohanie FIROELLA Primary Care Provider + Encounter Details Date Type Department Care Team (Late st Contact Info) Description 08/28/2020 17:00 EST Phlebotomy Only [facility] Center 2 Phlebotomy [address], [place] [id number] Bookkeeping Service Sales Agent, Acc Phlebotomy Positive NOLAN (antinuclear antibody); Polyarthralgia Social History Tobacco Use Types Packs/Day Years [...] Procedure Name Priority Date/Time Associated Diagnosis Comments SS-B (LA) ANTIBODY, IGG Routine 08/28/2020 16:57 EST Positive NOLAN (antinuclear antibody) ZZHN SSA ANTIBODIES BY LEBRON Routine 08/28/2020 16:57 EST Positive NOLAN (antinuclear antibody) SM (GUTIERREZ) ANTIBODY, IGG Routine 08/28/2020 16:57 EST Positive NOLAN (antinuclear antibody) CCP ANTIBODIES Routine 08/28/2020 16:57 EST Polyarthralgia CUSTOMER SUPPORT ASSISTANT ANTIBODY, IGG Routine 08/28/2020 16: 57 EST Positive NOLAN (antinuclear antibody) DOUBLE STRANDED DNA ANTIBODY, IGG Routine 08/28/2020 16:57 EST Positive NOLAN (antinuclear antibody) RHEUMATOID FACTOR Routine 08/28/2020 16: 57 EST Polyarthralgia THYROID ANTIBODIES Routine 08/28/2020 16 :57 EST Positive NOLAN (antinuclear antibody) documented in this encounter Results * THYROID ANTIBODIES (08/28/2020 16:57 EST) Anti-Thyroglobulin 26 <=60 U/mL 2019 19:11 EST [facility] Thyroperoxidase Ab <28 <=60 U/mL 2019 19:11 EST [facility] Blood VENOUS BLOOD / Unknown Venipuncture / Unknown 08/28/2020 16:57 EST 08/28/2020 17:49 EST Audi Smart MD CHEMISTRY & BLOOD GA S ORDERABLES [facility] [address] [place] [address] * CCP ANTIBODIES (08/28/2020 16:57 EST) CCP Antibodies <2.5 <5.0 U/mL 08/29/2020 8:24 EST [facility] Blood VENOUS BLOOD / Unknown Venipuncture / Unknown 08/28/2020 16:57 EST 08/28/2020 17:49 EST Audi Smart MD IMMUNOLOGY AND SEROL OGY ORDERABLES Performing Organization Address City/[facility] Co de Phone Number [facility] [address] [place] [address] * RHEUMATOID FACTOR (08/28/2020 16:57 EST) Rheumatoid Factor <8.6 <12.0 IU/mL 08/28/2020 18:26 EST [facility] Blood VENOUS BLOOD / Unknown Venipuncture / Unknown 08/28/2020 16:57 EST 08/28/2020 17:49 EST Audi Smart MD CHEMISTRY & BLOOD GA S ORDERABLES Performing Organization Address [facility] de Phone Number [facility] [address] [place] [address] * SSB ANTIBODIES BY LEBRON (08/28/2020 16:57 EST) SSB Antibody 3.2 <20.0 Units 08/30/2020 13:42 EST [facility] Comment: ? Negative: <20.0 Units ? Weak Positive: 20.0 - 39.9 Units ? Moderate Positive: 40.0 - 80.0 Units ? Strong Positive: >80.0 Units Results were obtained with the [employer] QUANTA Lite SS-B LEBRON. ??SS-B values obtained with different manufacturers' assay methods may not be used interchangeably. ??The magnitude of the reported IgG levels cannot be correlated to an endpoint titer. Blood VENOUS BLOOD / Unknown Venipuncture / Unknown 08/28/2020 16:57 EST 08/28/2020 17:49 EST Audi Smart MD IMMUNOLOGY AND SEROL OGJesusita ORDERABLES Performing Organization Address [facility] de Phone Number [facility] [address] [place] [address] * SSA ANTIBODIES BY LEBRON (08/28/2020 16:57 EST) SSA Antibody 1.9 <20.0 Units 08/30/2020 13:40 EST [facility] Comment: ? Negative: <20.0 Units ? Weak Positive: 20.0 - 39.9 Units ? Moderate Positive: 40.0 - 80.0 Units ? Strong Positive: >80.0 Units Results were obtained with the [employer] QUANTA Lite SS-A LEBRON. ??SS-A values obtained with different manufacturers' assay methods may not be used interchangeably. ??The magnitude of the reported IgG levels cannot be correlated to an endpoint titer. Blood VENOUS BLOOD / Unknown Venipuncture / Unknown 08/28/2020 16:57 EST 08/28/2020 17:49 EST Audi Smart MD IMMUNOLOGY AND SEROL JEAN ORDERABLES Performing Organization Address [facility] de Phone Number [facility] [address] [place] [address] * CUSTOMER SUPPORT ASSISTANT ANTIBODIES BY LEBRON (08/28/2020 16:57 EST) CUSTOMER SUPPORT ASSISTANT Antibody 2.2 <20.0 Units 08/30/2020 13:45 EST [facility] Comment: ? Negative: <20.0 Units ? Weak Positive: 20.0 - 39.9 Units ? Moderate Positive: 40.0 - 80.0 Units ? Strong Positive: >80.0 Units Results were obtained with the [employer] Quanta Lite CUSTOMER SUPPORT ASSISTANT LEBRON. CUSTOMER SUPPORT ASSISTANT values obtained with different family sociologist's assay methods may not be used interchangeaby. ??The magnitude of the reported IgG levels cannot be be correlated to an endpoint titer. A positive result in the Quanta Lite CUSTOMER SUPPORT ASSISTANT LEBRON indicates the presence of antibodies reactive with the CUSTOMER SUPPORT ASSISTANT/Sm complex but cannot distinguish between anti-Sm and anti-CUSTOMER SUPPORT ASSISTANT activity. Blood VENOUS BLOOD / Unknown Venipuncture / Unknown 08/28/2020 16:57 EST 08/28/2020 17:49 EST Audi Smart MD IMMUNOLOGY AND SEROL JEAN ORDERABLES Performing Organization Address [facility] de Phone Number [facility] [address] [place] [address] * SM (GUTIERREZ) ANTIBODY (08/28/2020 16:57 EST) SM (Gutierrez) Antibody 2.2 <20.0 Units 08/30/2020 13:44 EST [facility] Comment: ? Negative: <20.0 Units ? Weak Positive: 20.0 - 39.9 Units ? Moderate Positive: 40.0 - 80.0 Units ? Strong Positive: >80.0 Units Results were obtained with the [employer] QUANTA Lite Sm LEBRON. ??Sm values obtained with different manufacturers' assay methods may not be used interchangeably. ??The magnitude of the reported IgG levels cannot be correlated to an endpoint titer. Blood VENOUS BLOOD / Unknown Venipuncture / Unknown 08/28/2020 16:57 EST 08/28/2020 17:49 EST Audi Smart MD IMMUNOLOGY AND SEROL OGJesusita ORDERABLES Performing Organization Address [facility] de Phone Number [facility] [address] [place] [address] * ANTI DNA (DOUBLE STRANDED) (08/28/2020 16:57 EST) Anti-DNA (Double Stranded) <12.3 <30.0 IU/mL 08/30/2020 12:00 EST [facility] Comment: ? Negative: ??<30.0 IU/mL ? Borderline Positive: ??30.0 - 75.0 IU/mL ? Positive: ??>75.0 IU/mL Results were obtained with the [employer] SystemsA Lite dsDNA SC LEBRON assay on the Nervogrid DSX. Blood VENOUS BLOOD / Unknown Venipuncture / Unknown 08/28/2020 16:57 EST 08/28/2020 17:49 EST Audi Smart MD IMMUNOLOGY AND ARLENE PENA ORDERABLES Performing Organization Address City/State/[facility] Co de Phone Number [facility] [address] [place] [address] documented in this encounter Visit Diagnoses Diagnosis Positive NOLAN (antinuclear antibody) Other and unspecified nonspecific immunological findings Polyarthralgia Pain in joint, multiple sites documented in this encounter Care Teams Mix Crusher Operator Relationship Specialty Start Date End Date Arlen Ryan ND [address] [place] [phone] PCP - General 02/21/20 08/04/21 documented as of this encounter
--- OUTSIDE RECORDS SUMMARY | 2024-05-27 02:37 | XMS_ITS | Encounter Summary ---
Author Organization [facility] Address [address] [place] [address] Care Team Providers Care Bill Poster Installer Name Role Phone SheriblakeAlex mascorrohanie FIORELLA Primary Care Provider + Encounter Details Date Type Department Care Team (Latest Contact Info) Description 08/28/2020 Travel Social History Tobacco Use Types Packs/Day [...] on filedocumented in this encounter Care Teams Bill Poster Installer Relationship Specialty Start Date End Date Arlen Ryan ND [address] [place] [phone] PCP - General 02/21/20 08/04/21 documented as of this encounter
--- OUTSIDE RECORDS SUMMARY | 2024-05-27 02:37 | XMS_ITS | Encounter Summary ---
Author Organization [facility] Address [address] [place] [address] Care Team Providers Care Outlet Manager Name Role Phone Jim Wei MD Primary Care Provider Un available Encounter Details Date Type Department Care Team (Late st Contact Info) Description 09/19/2016 Historical Results Only [facility] - Main [address] [id number] Naga Bhatti MD Social History Tobacco Use [...] Procedure Name Priority Date/Time Associated Diagnosis Comments T4 FREE Routine 09/19/2016 11:21 EST documented in this encounter Results * T4 FREE (09/19/2016 11:21 EST) FREE [address] 0.99 0.89 - 1.76 ng/dL 09/19/2016 12:21 EST [facility] 09/19/2016 11:2 1 EST 09/19/2016 11:21 EST Narrative [facility] - 09/19/2016 12:21 EST Does PT Have a Latex Allergy? NO Naga Bhatti MD CHEMISTRY & BLOOD GA S ORDERABLES [facility] documented in this encounter Visit Diagnoses Not on filedocumented in this encounter Care Teams Outlet Manager Relationship Specialty Start Date End Date Jim Wei MD PCP - General 08/11/11 02/20/20 documented as of this encounter
--- OUTSIDE RECORDS SUMMARY | 2024-05-27 02:37 | XMS_ITS | Encounter Summary ---
Author Organization [facility] Address [address] [place] [address] Care Team Providers Care Air/Ocean Export Clerk Name Role Phone Jim Wei MD Primary Care Provider Un available Encounter Details Date Type Department Care Team (Late st Contact Info) Description 10/20/2018 Historical Results Only [facility] Lab - [address] [id number] Naga Bhatti MD Social History Tobacco Use [...] Procedure Name Priority Date/Time Associated Diagnosis Comments HPV DNA DETECTION WITH GENOTYPING, PCR Routine 10/20/2018 9:33 EST PAP TEST Routine 10/20/2018 documented in this encounter Results * HUMAN PAPILLOMAVIRUS (HPV) DETECTION-HIGH RISK TYPES (10/20/2018 9:33 EST) HPV other High Risk types, PCR NEG 10/25/2018 15:51 EST [facility] Comment: Negative for HPV types 16, 18, 31, 33, 35, 39, 45, 51, 52, 56, 58, 59, 66, 68. Method: Cervista HPV HR (High Risk) DNA test. 10/20/2018 9:33 EST 10/21/2018 9:33 EST Naga Bhatti MD MICROBIOLOGY - GENER AL ORDERABLES [facility] * PAP TEST (10/20/2018) 10/20/2018 10/21/2018 9:3 3 EST Narrative [facility] - 10/26/2018 13:56 EST ----- ------- Name: BARBI IVEY ?: [birth year] ?Age/Sex: 43/F ?Unit#: [id number] ? Loc: AGO ? Status: REG POV ?? Reg Date: 10/20/18 ? Pt.Phone Number: ? ----- ------- Specimen: [id number] ? STATUS: SOUT ?Spec Date:10/20/18 ? Physician Copies: ?Naga Bhatti MD ? Tissues: ? Cervical/Endo Pap ?Taran Ryan CPT: 56916 ?? Units: ??1 ----- ------- ? CYTOLOGY DIAGNOSIS SPECIMEN ADEQUACY: ?Satisfactory for evaluation. Transformation zone component present. GENERAL CATEGORIZATION: ?Negative for Intraepithelial Lesion or Malignancy DESCRIPTIVE DIAGNOSIS: ? Negative for Intraepithelial Lesion or Malignancy. ----- ------- ?HPV DNA RESULTS ? LABORATORY ?? Date ? Time Test ?Result ?? Flag ?Normal Range ?? 10/20/18 0933 HPV DNA RESULT ??NEG ? Negative for HPV types 16, 18, 31, 33, 35, 39, 45, 51, 52, ? 56, 58, 59, 66, 68. ? Method: Cervista HPV HR (High Risk) DNA test. ----- ------- ORDER QUERIES: LMP: 03/2018 ??- 03/2018 ? N Post ? N ??PREVIOUS ATYPICAL: N BCP/HRT? N Rad Rx? N IUD? N ??PAP PLUS HPV? Y ??REFLEX TO HR-HPV IF ASCUS N REFLEX TO HPV 16/18 IF HPV POS/PAP NEG N HPV REGARDLESS? Y ??RFLX HPV IF LSIL ?? Signed Marcia Ospina CT(ASCP) 10/26/18 By the signature above, the attending physician certifies that he/she has personally conducted a gross and/or microscopic examination of the described specimens and rendered or confirmed the above diagnosis. Test Performed by [facility], [address] [address] Glove Operator: Azalea Tanner MD PHD ----- ------- Naga Bhatti MD PATHOLOGY ORDERABLES Performing Organization Address City/State/[facility] Co de Phone Number [facility] documented in this encounter Visit Diagnoses Not on filedocumented in this encounter Care Teams Air/Ocean Export Clerk Relationship Specialty Start Date End Date Jim Wei MD PCP - General 08/11/11 02/20/20 documented as of this encounter
--- OUTSIDE RECORDS SUMMARY | 2024-05-27 02:37 | XMS_ITS | Encounter Summary ---
Author Organization [facility] Address [address] [place] [address] Care Team Providers Care Loom Setter Fourdrinier Name Role Phone Angelica Murphy TINY Primary Care Provider [phone] Reason for Visit * Reason Comments Chronic Pain Encounter Details Date Type Department Care Team (Latest Contact Info) Description 04/29/2022 13:15 EDT Group Visit [facility] Comprehensive Pain Program - [address] [place] [address] Julia Montez, PhD [address] [place] [address] [address] [place] [address] Anxiety about health (Primary Dx); [...] encounter Miscellaneous Notes * Group Note - Julia Montez, PhD - 04/29/2022 1315 EDT Date: 04/29/2022 Start Time: 13:15 End Time: 14:45 Comprehensive Pain Program [facility] Session 10 of 12 90-minute group Number of participants: 5 (5 in person and 0 virtual) Topic: Acceptance and Inner Guidance Session Goals: 1. Learn about tools useful to allow and make room for difficult thoughts and/or feelings 2. Explore the costs and benefits of avoidance 3. Recognize guidance offered by emotions 4. Identify healthy strategies to cope with anxiety, sadness, and anger Individual Notes Arrival: prompt Participation throughout session: engaged During check in, she stated that she has had a rough week. She had a cortisone shot in her hip and has been unable to sit for the past two days. Discussed metaphors related to acceptance and opening up to experiences and situations out of one'scontrol. Reviewed a handout with various terms that can be used as an alternative to acceptance of difficult thoughts, emotions, and physical sensations. Obstacles to treatment: n/a Diagnostic impression: ICD-10-CM ICD-9-CM 1. Anxiety about health F41.8 300.09 2. Chronic pain syndrome G89.4 338.4 Rationale for frequency and duration of therapy: Treatment at [facility] includes participating in this 12-week Acceptance and Commitment Therapy group program. Participation in additional individual and group therapies is strongly encouraged for optimal treatment. Home Practice Suggestions: ? Complete self?portrait to share next week during our opening ???Gallery Walk?? ? Record in gratitude journal daily (3 things that are different from previous days) ? Daily relaxation practice and/or mindfulness ____ minutes a day ? Take committed action by doing something that matters to you at least once this week documented in this encounter Plan of Treatment Not on file documented as of this encounter Visit Diagnoses Diagnosis Anxiety about health- Primary Chronic pain syndrome documented in this encounter Care Teams Loom Setter Fourdrinier Relationship Specialty Start Date End Date Angelica [place] [address] PCP - General 08/05/21 documented as of this encounter
--- OUTSIDE RECORDS SUMMARY | 2024-05-27 02:37 | XMS_ITS | Encounter Summary ---
Author Organization [facility] Address [address] [place] [address] Care Team Providers Care Commercial Singer Name Role Phone Angelica Murphy TINY Primary Care Provider [phone] Reason for Visit * Reason Comments Chronic Pain Encounter Details Date Type Department Care Team (Latest Contact Info) Description 04/01/2022 13:15 EDT Group Visit [facility] Comprehensive Pain Program - [facility] [address] [place] [address] Abdoulaye Riley, [facility] [address] [place] [address] Anxiety about health (Primary Dx); [...] encounter Miscellaneous Notes * Group Note - Abdoulaye Riley, [facility] - 04/01/2022 1315 EDT Date: 04/01/2022 Start Time: 13:15 End Time: 14:45 Comprehensive Pain Program [facility] Session 6 of 12 Number of participants: 7 Topic: Mindfulness and Relaxation Session Goals: 1. Review use of pain diary 2. Learn about the role of mindfulness and relaxation as it relates to coping with chronic pain 3. Understand the differences and similarities between mindfulness and relaxation 4. Determine how to overcome obstacles to a daily mindfulness or relaxation practice 5. Experience mindfulness and relaxation practice Rationale for frequency and duration of therapy: Treatment at [facility] includes participating in this 12-week Acceptance and Commitment Therapy group program. Participation in additional individual and group therapies is strongly encouraged for optimal treatment. Recommendations for the upcoming week: Home Practice: * Record in pain diary 3 consistent times a day, paying attention briefly to thoughts and noticing action taken. * Record in gratitude journal daily (3 reasons you are grateful, different from previous days) * Daily relaxation practice and/or mindfulness 2-5 minutes a day * Choose one activity to engage in (related to one of your intentions) at least once this week Individual Notes: Arrival: prompt Participation throughout session: engaged and quiet , but more talkative toward the end. During a brief check-in, Barbi indicated that she was struggling by rating her current mood stateas 1 out of 5. Was engaged in discussion about chronic stress, the role of relaxation training and mindfulness, and the interconnectedness with chronic pain. She shared that she had a positive focus in getting her son ready for college. Process: Obstacles to treatment: n/a Diagnostic impression: ICD-10-CM ICD-9-CM 1. Anxiety about health F41.8 300.09 2. Chronic pain syndrome G89.4 338.4 Rationale for frequency and duration of therapy: Treatment at [facility] includes participating in this 12-week Acceptance and Commitment Therapy group program. Participation in additional individual and group therapies is strongly encouraged for optimal treatment. Recommendations for the upcoming week: Home Practice: ??? Record in pain diary 3 consistent times a day ??? Record in gratitude journal daily (3 reasons you are grateful, different from previous days) ??? Daily relaxation practice and/or mindfulness ___ minutes a day ??? Choose one activity to engage in (related to one of your intentions) at least once this week ??? Complete MidPoint Check worksheet Present - Full Group documented in this encounter Plan of Treatment Not on file documented as of this encounter Visit Diagnoses Diagnosis Anxiety about health- Primary Chronic pain syndrome documented in this encounter Care Teams Commercial Singer Relationship Specialty Start Date End Date Angelica [place] [address] PCP - General 08/05/21 documented as of this encounter
--- OUTSIDE RECORDS SUMMARY | 2024-05-27 02:37 | XMS_ITS | Encounter Summary ---
Author Organization [facility] Address [address] [place] [address] Care Team Providers Care Editor Sound Name Role Phone MarquesAngelica avelar TINY Primary Care Provider [phone] Reason for Visit * Laboratory Services (Routine/Next Available) - Order Cancelled Specialty Diagnoses / Procedures Referred By Stephanie price Referred To Contact Diagnoses Hypokalemia Procedures BASIC METABOLIC PANEL (BMP) Zulema Rodriguez MD [address] [place] [address], [address] [place] [address] Referral ID Status Reason Start Date Expiration Date V isits Requested Visits Authorized [id number] Order Cancelled 08/05/2021 6 6 Encounter Details Date Type Department Care Team ([facility] Contact Info) Description 08/05/2021 11:15 EST Phlebotomy Only [facility] Laboratory Services - [address] [address] Fishing Guide, [facility] Lab Hypokalemia Social History Tobacco Use Types Packs/Day [...] Procedure Name Priority Date/Time Associated Diagnosis Comments POTASSIUM, URINE RANDOM Routine 08/05/2021 11:27 EST Hypokalemia OSMOLALITY Routine 08/05/2021 11:27 EST Hypokalemia PHOSPHORUS Routine 08/05/2021 11:27 EST Hypokalemia OSMOLALITY, URINE Routine 08/05/2021 11: 27 EST Hypokalemia MAGNESIUM Routine 08/05/2021 11:27 EST Hypokalemia BASIC METABOLIC PANEL (BMP) Routine 08/05/2021 11:27 EST Hypokalemia documented in this encounter Results * MAGNESIUM (08/05/2021 11:27 EST) Magnesium 1.9 1.7 - 2.8 mg/dL 08/05/2021 12:44 EST [facility] Blood VENOUS BLOOD / Unknown Venipuncture / Unknown 08/05/2021 11:27 EST 08/05/2021 11:27 EST Zulema Rodriguez MD CHEMISTRY & BLOOD GA S ORDERABLES [facility] [address] [place] [address] * PHOSPHORUS (08/05/2021 11:27 EST) Phosphorus 3.1 2.5 - 4.5 mg/dL 08/05/2021 12:44 EST [facility] Blood VENOUS BLOOD / Unknown Venipuncture / Unknown 08/05/2021 11:27 EST 08/05/2021 11:27 EST Zulema Rodriguez MD CHEMISTRY & BLOOD GA S ORDERABLES Performing Organization Address [facility]/ZIP Co de Phone Number [facility] [address] [place] [address] * OSMOLALITY (08/05/2021 11:27 EST) Osmolality, Serum 282 275 - 295 mOsm/kg 08/05/2021 13:05 EST [facility] Blood VENOUS BLOOD / Unknown Venipuncture / Unknown 08/05/2021 11:27 EST 08/05/2021 11:27 EST Zulema Rodriguez MD CHEMISTRY & BLOOD GA S ORDERABLES Performing Organization Address [facility] Co de Phone Number [facility] [address] [place] [address] * OSMOLALITY, URINE (08/05/2021 11:27 EST) Osmolality, Urine 248 150-1,150 mOsm/kg 08/05/2021 12:31 EST [facility] Urine URINE SPECIMEN COLLECTION, CLEAN CATCH / Unknown Urine Collect / Unknown 08/05/2021 11:27 EST 08/05/2021 11:27 EST Zulema Rodriguez MD URINALYSIS ORDERABLE S Performing Organization Address City/[facility] Co de Phone Number [facility] [address] [place] [address] * POTASSIUM, URINE RANDOM (08/05/2021 11:27 EST) Potassium, Urine 25.8 See Note mmol/L 08/05/2021 12:35 EST [facility] Comment: NOTE: Reference range has not been established for potassium concentration in random urine specimens. Urine URINE SPECIMEN COLLECTION, CLEAN CATCH / Unknown Urine Collect / Unknown 08/05/2021 11:27 EST 08/05/2021 11:27 EST Zulema Rodriguez MD URINALYSIS ORDERABLE S Performing Organization Address City/[facility]/ZIP Co de Phone Number [facility] [address] [place] [address] * (ABNORMAL) BASIC METABOLIC PANEL (BMP) (08/05/2021 11:27 EST) Sodium 136 136 - 145 mmol/L 08/05/2021 12:44 [facility] Potassium 3.4(L) 3.5 - 5.0 mmol/L 08/05/2021 12:44 [facility] Chloride 99 96 - 110 mmol/L 08/05/2021 12:44 [facility] CO2 Total 28 22 - 32 mmol/L 08/05/2021 12:44 [facility] Anion Gap 9 8 - 16 08/05/2021 12:44 [facility] Glucose 91 70 - 100 mg/dL 08/05/2021 12:44 [facility] Calcium 9.6 8.5 - 10.5 mg/dL 08/05/2021 12:44 [facility] BUN 13 10 - 26 mg/dL 08/05/2021 12:44 [facility] Creatinine 0.79 0.52 - 1.04 mg/dL 08/05/2021 12:44 [facility] eGFR 90 >60 mL/min/1.73 m2 08/05/2021 12:44 [facility] Blood VENOUS BLOOD / Unknown Venipuncture / Unknown 08/05/2021 11:27 EST 08/05/2021 11:27 EST Zulema Rodriguez MD CHEMISTRY & BLOOD GA S ORDERABLES Performing Organization Address [facility] Co de Phone Number [facility] [address] [place] [address] documented in this encounter Visit Diagnoses Diagnosis Hypokalemia Hypopotassemia documented in this encounter Care Teams Editor Sound Relationship Specialty Start Date End Date Angelica [place] [address] PCP - General 08/05/21 documented as of this encounter
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
--- OUTSIDE RECORDS SUMMARY | 2024-05-27 02:37 | XMS_ITS | Encounter Summary ---
Author Organization [facility] Address [address] [place] [address] Care Team Providers Care Research Worker Encyclopedia Name Role Phone Angelica Murphy TINY Primary Care Provider [phone] Reason for Visit * Reason Onset Date Comments Appointment Related 03/27/2022 Encounter Details Date Type Department Care Team (Late st Contact Info) Description 03/27/[address] [phone] Therapy, Physical Appointment Related Social History Tobacco [...] * Telephone Encounter - Nubia Barker - 03/27/[address]22 [address] [address] Telephone Intake Information for Scheduling NEW Patients for Therapy Diagnosis: G89.4 (ICD-10-CM) - 338.4 (ICD-9-CM) - Chronic pain syndrome Date Scheduled: 05/15/2022 Cycle Consultant needed? No [place]- [place]FERRAL REQUIRED.Medicaid (age 21+):Have you been seen for therapy since August first of this year? No No extension process required Secondary Insurance: None Notes: Patient declined being added to the wait list. Nubia Barker 03/27/2022 documented in this encounter Plan of Treatment Not on file documented as of this encounter Visit Diagnoses Not on filedocumented in this encounter Care Teams Research Worker Encyclopedia Relationship Specialty Start Date End Date Angelica Murphy [place] [address] PCP - General 08/05/21 documented as of this encounter
--- OUTSIDE RECORDS SUMMARY | 2024-05-27 02:37 | XMS_ITS | Encounter Summary ---
Author Organization [facility] Address [address] [place] [address] Care Team Providers Care Regional Controller Name Role Phone Jim Wei MD Primary Care Provider Un available Encounter Details Date Type Department Care Team (Late st Contact Info) Description 03/21/2016 Historical Results Only [facility] Radiology Results [address] [place], [place] [address] Naga Bhatti MD Social History Tobacco Use [...] Procedure Name Priority Date/Time Associated Diagnosis Comments MA BREAST SCREENING MALACHI BILATERAL 03/21/2016 11:07 EDT documented in this encounter Results * MA BREAST SCREENING MALACHI BILATERAL (03/21/2016 11:07 EDT) Anatomical Region Laterality Modality Breast Bilateral Other 03/21/2016 11:0 7 EDT Narrative 03/24/2016 10:47 EDT ? EXAM: MAMMOGRAM/MAMMO BILATERAL SCREEN W ??EX. D/ (1107) ? CLINICAL INFORMATION: ? Z12.31 SCREENING MAMMO FOR MALIGNANT NEOPLASM ? OF BREAST ? TECHNIQUE: ??Full field digital whole breast 2D (C-view) and 3D CC and ? MLO views of both breasts were obtained. CAD technology was utilized. ? INDICATION: ??Screening ? FINDINGS: ??The fibroglandular patterns of the breasts are normal. ? There has been no change when compared to previous mammograms and ? there is no mammographic evidence of cancer. The breasts are of fatty ? density. ? FINAL ASSESSMENT: ??BILATERAL BREAST - Category 1 - Negative. Routine ?mammographic follow-up is recommended. ? These results will be communicated to your patient via a lay letter ? from Radiology. ??If any additional imaging is needed we will contact ? your patient directly. ? SNR:kad ?Reported By: Capo Thao MD ? CC: ? Transcribed Date/Time: 03/24/2016 (1047) ? Coffee Shop Manager: LANI ? Printed Date/Time: 02/10/2019 (2036) ? PAGE 1 ? Signed Report ? Procedure Note Capo Thao MD - 07/06/2019 EXAM: MAMMOGRAM/MAMMO BILATERAL SCREEN W EX. D/ (1107) CLINICAL INFORMATION: Z12.31 SCREENING MAMMO FOR MALIGNANT NEOPLASM OF BREAST TECHNIQUE: Full field digital whole breast 2D (C-view) and 3D CCand MLO views of both breasts were obtained. CAD technology wasutilized. INDICATION: Screening FINDINGS: The fibroglandular patterns of the breasts are normal. There has been no change when compared to previous mammograms and there is no mammographic evidence of cancer. The breasts are offatty density. FINAL ASSESSMENT: BILATERAL BREAST - Category 1 - Negative.Routine mammographic follow-up is recommended. These results will be communicated to your patient via a lay letter from Radiology. If any additional imaging is needed we willcontact your patient directly. SNR:kad Reported By: Capo Thao MD CC: Transcribed Date/Time: 03/24/2016 (1047) Coffee Shop Manager: LANI Printed Date/Time: 02/10/2019 (6850) PAGE 1 Signed Report Naga Bhatti MD IMG MAMMOGRAPHY PAIGE KUMAR documented in this encounter Visit Diagnoses Not on filedocumented in this encounter Care Teams Regional Controller Relationship Specialty Start Date End Date Jim Wei MD PCP - General 08/11/11 02/20/20 documented as of this encounter
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
--- OUTSIDE RECORDS SUMMARY | 2024-05-27 02:37 | XMS_ITS | Encounter Summary ---
Author Organization [facility] Address [address] [place] [address] Care Team Providers Care Second Worker Name Role Phone Jim Wei MD Primary Care Provider Un available Encounter Details Date Type Department Care Team (Latest Contact Info) Description 02/27/2017 11:07 EDT - 02/27/2017 23:59 EDT Hospital Encounter [address] [address] Unknown, Provider, Discharge Disposition: Home or Self [...] Code Departure Means Destination Home or Self [place] documented in this encounter Plan of Treatment Not on file documented as of this encounter Visit Diagnoses Not on filedocumented in this encounter Care Teams Second Worker Relationship Specialty Start Date End Date Jim Wei MD PCP - General 08/11/11 02/20/20 documented as of this encounter
--- OUTSIDE RECORDS SUMMARY | 2024-05-27 02:37 | XMS_ITS | Encounter Summary ---
Author Organization [facility] Address [address] [place] [address] Care Team Providers Care Resident Care Aid Name Role Phone Syjustenledy Arlen BARROS Primary Care Provider + Angelica Murphy Primary Care Provider [phone] Reason for Visit * Reason Onset Date Comments Appointment Related 04/09/2021 Encounter Details Date Type Department Care Team (Late st Contact Info) Description 04/09/2021 Telephone [facility] Nephrology - [address] [address] Unknown, Provider, Appointment Related Social History Tobacco Use Types [...] encounter Miscellaneous Notes * Telephone Encounter - Faraz Alford - 04/10/2021 0925 EDT 2nd attempt to schedule LMOM. * Telephone Encounter - Faraz Alford - 04/09/2021 1505 EDT LMOM looking to schedule NPV apt. Please assign to referral. documented in this encounter Plan of Treatment Not on file documented as of this encounter Visit Diagnoses Not on filedocumented in this encounter Care Teams Resident Care Aid Relationship Specialty Start Date End Date Arlen Ryan ND [address] [place] [phone] PCP - General 02/21/20 08/04/21 Angelica Murphy FNP [address] [place] [id number] PCP - General 08/05/21 documented as of this encounter
--- OUTSIDE RECORDS SUMMARY | 2024-05-27 02:37 | XMS_ITS | Encounter Summary ---
Author Organization [facility] Address [address] [place] [address] Care Team Providers Care Finance Broker Name Role Phone Angelica Murphy TINY Primary Care Provider [phone] Reason for Visit * Reason Comments Other New patient visit fo r hypokalemia in a 45-yo female with PMH for fibromyalgia, chronic fatigue, Lyme disease, last treated in 2015 ??3 months antibiotics + herbals, followed by herbals and nephrolithiasis. Listed meds include oral potassium citrate, 25 mg/d of hydrochlorothiazide and Amiloride, 5 mg/d. * Consult (Routine/Next Available) - Specialty Report Received Specialty Diagnoses / Procedures Referred By Stephanie price Referred To Contact Nephrology Diagnoses Hypokalemia Hypomagnesemia Benny Urias MD [facility] [address] [place] [id number] Referral ID Status Reason Start Date Expiration Date Visits Requested Visits Authorized [id number] Specialty Report Received Specialty Services Required 04/06/2021 1 1 Encounter Details Date Type Department Care Team (Late st Contact Info) Description 08/05/2021 10:20 EST Office Visit [facility] Nephrology - [address] [id number] Zulema Rodriguez MD [address] [place] [address], [address] [place] [address] Hypokalemia (Primary Dx) Social History Tobacco Use [...] :51 EST documented as of this encounter Last Filed Vital Signs Vital Sign Reading Time Taken Comments Blood Pressure 125/57 08/05/2021 1014 EST Pulse 82 08/05/2021 1014 EST Temperature - - Respiratory Rate - - Oxygen Saturation - - Inhaled Oxygen Concentration - - Weight 82.6 kg (182 lb) 08/05/2021 1014 EST Height 162.6 cm (5' 4) 08/05/2021 1014 EST Body Mass Index 31.24 08/05/2021 1014 EST documented in this encounter Functional Status [...] this encounter Patient Instructions * Patient Instructions* Zulema Rodriguez MD - 08/05/2021 10:20 EST Lab work here at [facility] labs. Then BMP every 2 months. documented in this encounter Progress Notes * Zulema Rodriguez MD - 08/05/2021 1020 EST NEW NEPHROLOGY CONSULT OFFICE VISIT NOTE SUBJECTIVE New patient visit for hypokalemia in a 45-yo female with PMH for fibromyalgia, chronic fatigue, Lyme disease, last treated in 2015 with reported 3 months antibiotics + herbals, followed by herbals, and nephrolithiasis. Listed meds include oral potassium citrate, 25 mg/d of hydrochlorothiazide and Amiloride, 5 mg/d. 08/04/2021 No chief complaint on file. HPI As above. She reported that low potassium has been a problem for 19 years and has had to take potassium citrate supplements datng back to when she was . She had been followed by [facility] Nephrology. She has been otherwise asymptomatic. She had been on hydrochlorothiazide and K citrate since 2008. She has had to take potassium chloride tablets. She has been on the Amiloride since 2012 - this was started for the low potassium. The high BP started with the son when she had pre-eclampsia - in 2000 -2001. She did not do well with Lisinopril (too low BP) and she did not tolerate Metoprolol. She stated that the potassium has only been checked about 4x this year - the last was probably doneabout 4 months ago - [facility] ([facility] lab is her lab. No vomiting, no diarrhea; Weight is holding steady or actually dropping a little bit. She was hospitalized in 2008 with kidney stone and kidney infection with potassium in the low 2s. She narrated that the low potassium antedated starting hydrochlorothiazide. Low potassium actually dated back to 2001. She has had recurrent oxalate stones - the last recurrence was in 2015 and on the left side and it had to be removed surgically by a posterior approach. [facility] She was placed on low oxalate diet. She drinks usually about 2L a day - shetries taking up to 3L/d. For pain, she takes Duloxetine, Flexeril and Naltrexone. She also takes Advil - NSAIDs. There is no problem list on file for this patient. Past Medical History: Diagnosis Date ??? Anxiety and depression ??? Lyme disease ??? Nephrolithiasis Past Surgical History: Procedure Laterality Date ??? CARPAL TUNNEL RELEASE Right ??? SHOULDER SURGERY Right Current Outpatient Medications Medication ??? aMILoride (MIDAMOR) 5 mg tablet ??? cholecalciferol, Vitamin D3, 1,000 unit tablet ??? cyclobenzaprine (FLEXERIL) 10 mg tablet ??? hydrochlorothiazide (HYDRODIURIL) 25 mg tablet ??? POTASSIUM CITRATE ORAL ??? venlafaxine (EFFEXOR) 75 mg tablet No current facility-administered medications for this visit. Allergies Allergen Reactions ??? Penicillins Hives Social History Tobacco Use ??? Smoking status: Never Smoker ??? Smokeless tobacco: Never Used Substance Use Topics ??? Alcohol use: Yes Comment: Occasionally 1-2 drinks in a month ??? Drug use: Yes Types: Marijuana Family History Problem Relation Age of Onset ??? Hypertension Mother ??? Heart Disease Mother Atrial Fibrillation REVIEW OF SYSTEMS A ten point ROS was performed and was negative except for pertinent positives in the HPI. LMP 08/28/2017 General appearance: alert, cooperative, no distress Head: Normocephalic, without obvious abnormality, atraumatic Abdomen: No hepatosplenomegaly. Mental Status: awake and alert; oriented to person, place, and time Extremities: No edema. Zulema Rodriguez MD 08/04/2021 11:13 Lab Results Component Value Date K 3.5 07/11/2002 NA 138 07/11/2002 CL 110 07/11/2002 CO2 23 (L) 07/11/2002 AST 21 07/11/2002 ALT 29 07/11/2002 CREATININE 0.6 (L) 07/11/2002 Lab Results Component Value Date WBC 7.97 07/11/2002 RBC 3.55 (L) 07/11/2002 HGB 11.5 (L) 07/11/2002 HCT 32.7 (L) 07/11/2002 MCV 92 07/11/2002 MCH 32.3 07/11/2002 MCHC 35.0 07/11/2002 RDWCV 13.0 07/11/2002 PLT 173 07/11/2002 Lab Results Component Value Date WBCU None seen 07/11/2002 RBCU 5 to 10 07/11/2002 SQUAEPIU None seen 07/11/2002 RENEPIU None seen 07/11/2002 BACTERIA None seen 07/11/2002 CRYST None seen 07/11/2002 LABCAST None seen 07/11/2002 UACOMMENT 07/11/2002 Microscopic results are unreliable on urines unrefrig >2hrs or refrig >8hrs. Lab Results Component Value Date COLOR Yellow 07/11/2002 CLARITYU Clear 07/11/2002 GLUCOSEU Norm 07/11/2002 BILIRUBINUR Neg 07/11/2002 KETONES Neg 07/11/2002 LABSPEC <1.005 (L) 07/11/2002 BLOODU Mod (A) 07/11/2002 PHUR 7.0 07/11/2002 PROTEINUA Neg 07/11/2002 UROBILINOGEN Norm 07/11/2002 NITRITE Neg 07/11/2002 LEUKESTER Neg 07/11/2002 ASSESSMENT & PLAN Hypokalemia - New patient visit for hypokalemia in a 45-yo female with PMH for fibromyalgia, chronic fatigue, Lyme disease, last treated in 2016 with reported 3 months antibiotics + herbals, followedby herbals, and nephrolithiasis. Listed meds include oral potassium citrate, 25 mg/d of hydrochlorothiazide and Amiloride, 5 mg/d. No recent labs - To get BMP, UA and urine potassium/Osmolality to calculate TTKG. Increased dietary intake of potassium and continued potassium supplementation will be the plan her with more frequent testing. To get BMP with serum osmolality, magnesium, PTH, phosphorus, urine potassium and urine osmolality. Kidney stones - The relationship between hypoakalemia and kidney stones is unclear. To continue increased water intake as already advised. Potassium citrate is also for kidney stone prophylaxis. HTN - This is controlled on current medications. Given her non-tolerance of ACEI, Lisinopril and Metoprolol, we will not be changing BP meds. ADDENDUM 08/06/2021: The potassium level from 08/05/2021 was 3.4 mmol/L. The plan is as stated above. Creatinine is normal at 0.79 mg/dL. documented in this encounter Plan of Treatment Not on file documented as of this encounter Results * MAGNESIUM (08/05/2021 11:27 EST) Magnesium 1.9 1.7 - 2.8 mg/dL 08/05/2021 12:44 EST [facility] Blood VENOUS BLOOD / Unknown Venipuncture / Unknown 08/05/2021 11:27 EST 08/05/2021 11:27 EST Zulema Rodriguez MD CHEMISTRY & BLOOD GA S ORDERABLES Performing Organization Address City/[facility]/ZIP Co de Phone Number [facility] [address] [place] [address] * PHOSPHORUS (08/05/2021 11:27 EST) Phosphorus 3.1 2.5 - 4.5 mg/dL 08/05/2021 12:44 EST [facility] Blood VENOUS BLOOD / Unknown Venipuncture / Unknown 08/05/2021 11:27 EST 08/05/2021 11:27 EST Zulema Rodriguez MD CHEMISTRY & BLOOD GA S ORDERABLES Performing Organization Address [facility] Co de Phone Number [facility] [address] [place] [address] * OSMOLALITY (08/05/2021 11:27 EST) Osmolality, Serum 282 275 - 295 mOsm/kg 08/05/2021 13:05 EST [facility] Blood VENOUS BLOOD / Unknown Venipuncture / Unknown 08/05/2021 11:27 EST 08/05/2021 11:27 EST Zulema Rodriguez MD CHEMISTRY & BLOOD GA S ORDERABLES Performing Organization Address [facility] Co de Phone Number [facility] [address] [place] [address] * OSMOLALITY, URINE (08/05/2021 11:27 EST) Osmolality, Urine 248 150-1,150 mOsm/kg 08/05/2021 12:31 EST [facility] Urine URINE SPECIMEN COLLECTION, CLEAN CATCH / Unknown Urine Collect / Unknown 08/05/2021 11:27 EST 08/05/2021 11:27 EST Zulema Rodriguez MD URINALYSIS ORDERABLE S Performing Organization Address City/[facility]/ZIP Co de Phone Number [facility] [address] [place] [address] * POTASSIUM, URINE RANDOM (08/05/2021 11:27 EST) Potassium, Urine 25.8 See Note mmol/L 08/05/2021 12:35 [facility] Comment: NOTE: Reference range has not been established for potassium concentration in random urine specimens. Urine URINE SPECIMEN COLLECTION, CLEAN CATCH / Unknown Urine Collect / Unknown 08/05/2021 11:27 EST 08/05/2021 11:27 EST Zulema Rodriguez MD URINALYSIS ORDERABLE S [facility] [address] [place] [address] * (ABNORMAL) BASIC METABOLIC PANEL (BMP) (08/05/2021 11:27 EST) Sodium 136 136 - 145 mmol/L 08/05/2021 12:44 [facility] Potassium 3.4(L) 3.5 - 5.0 mmol/L 08/05/2021 12:44 [facility] Chloride 99 96 - 110 mmol/L 08/05/2021 12:44 [facility] CO2 Total 28 22 - 32 mmol/L 08/05/2021 12:44 [facility] Anion Gap 9 8 - 16 08/05/2021 12:44 [facility] Glucose 91 70 - 100 mg/dL 08/05/2021 12:44 [facility] Calcium 9.6 8.5 - 10.5 mg/dL 08/05/2021 12:44 [facility] BUN 13 10 - 26 mg/dL 08/05/2021 12:44 [facility] Creatinine 0.79 0.52 - 1.04 mg/dL 08/05/2021 12:44 [facility] eGFR 90 >60 mL/min/1.73 m2 08/05/2021 12:44 [facility] Blood VENOUS BLOOD / Unknown Venipuncture / Unknown 08/05/2021 11:27 EST 08/05/2021 11:27 EST Zulema Rodriguez MD CHEMISTRY & BLOOD GA S ORDERABLES [facility] [address] [place] [address] documented in this encounter Visit Diagnoses Diagnosis Hypokalemia- Primary Hypopotassemia documented in this encounter Historical Medications * This list may reflect changes made after this encounter. Medication Sig Dispensed Refills Start Date End Date LORazepam (ATIVAN) 0.5 mg tablet Take 0.5 mg by mouth as needed for Anxiety. UNABLE TO FIND Med Name: Mitochondrial take 3 caps daily naltrexone HCl (NALTREXONE ORAL) Take 6 mg by mouth daily. added in this encounter Care Teams Finance Broker Relationship Specialty Start Date End Date Angelica Murphy FNP [place] [address] PCP - General 08/05/21 documented as of this encounter
--- OUTSIDE RECORDS SUMMARY | 2024-05-27 02:37 | XMS_ITS | Encounter Summary ---
Author Organization [facility] Address [address] [place] [address] Care Team Providers Care Telemetry Monitor Name Role Phone Angelica Murphy TINY Primary Care Provider [phone] Reason for Visit * Reason Comments Chronic Pain Encounter Details Date Type Department Care Team (Latest Contact Info) Description 02/18/2022 13:15 EDT Group Visit [facility] Comprehensive Pain Program - [address] [place] [address] Julia Montez, PhD [address] [place] [address] [address] [place] [address] Anxiety about health (Primary Dx); [...] Group Note - Julia Montez, PhD - 02/18/2022 1315 EDT Date: 02/18/2022 Start Time: 13:15 End Time: 14:45 Comprehensive Pain Program [facility] Session 1 of 12 90-minute group Number of participants: 8 (8 in person and 0 virtual) Topic: Orientation Session Goals: 1. Make introductions, set group norms, begin establishing rapport 2. Learn about integrative treatment approach at [facility] 3. Review program expectations and logistics 4. Address questions about getting started Individual Notes: Arrival: prompt Participation throughout session: engaged Barbi stated she has migraine headaches, fibromyalgia, and Lyme disease. When asked to share a fun fact about self, she shared that she is from [facility] and has ducks, including 8 duckling's recently born. Engaged in a discussion about generating group norms. Agreed to maintain confidentiality of personal information shared during group. Obstacles to treatment: n/a Diagnostic impression: ICD-10-CM ICD-9-CM 1. Anxiety about health F41.8 300.09 2. Chronic pain syndrome G89.4 338.4 Rationale for frequency and duration of therapy: Treatment at [facility] includes participating in this 12-week Acceptance and Commitment Therapy group program. Participation in additional individual and group therapies is strongly encouraged for optimal treatment. Recommendations for the upcoming week: Home Practice: * If haven't already, complete and return Pre-Treatment Questionnaire and Treatment Agreement * For additional reference: obtain a copy of book ???Living Beyond Your Pain?? by Ani and Kaci * Review integrative treatment recommendations sheet and call [phone] to schedule desired appointments * Schedule appointment (preferably 30 min.) with your PCP for 2-3 weeks after graduation documented in this encounter Plan of Treatment Not on file documented as of this encounter Visit Diagnoses Diagnosis Anxiety about health- Primary Chronic pain syndrome documented in this encounter Care Teams Telemetry Monitor Relationship Specialty Start Date End Date Angelica Murphy FNP [address] [facility] [place] [address] PCP - General 08/05/21 documented as of this encounter
--- OUTSIDE RECORDS SUMMARY | 2024-05-27 02:37 | XMS_ITS | Encounter Summary ---
Author Organization [facility] Address [address] [place] [address] Care Team Providers Care Cosmetology Educator Name Role Phone SyjustensagarkaitlinjesuAlexArlen ND Primary Care Provider + Reason for Visit * Reason Onset Date Comments Appointment Related 08/09/2020 Appointment Related 08/10/2020 Encounter Details Date Type Department Care Team (Late st Contact Info) Description 08/09/2020 Telephone [facility] Rheumatology & Immunology - [address] [phone] Audi Smart MD [address] [place] [address], [address] [place] [address] Appointment Related; Appointment Related Social History Tobacco Use Types Packs/Day Years Used Date Smoking Tobacco: Never Assessed Interpersonal Safety Answer Date Record ed Physically [...] 15:56 EST documented as of this encounter Miscellaneous Notes * Telephone Encounter - Alexa Serrato - 08/10/2020 1244 EST Called patient and moved appt to 08/28 * Telephone Encounter - William Mccabe - 08/10/2020 0822 EST Patient called to reschedule 09/07 appt sooner. Symptoms worsening. Please advise. * Telephone Encounter - Daisy Benavidez - 08/09/2020 1345 EST Patient is calling to ask if she can reschedule her 09/07/20 appt sooner based on the new referral sent on 08/02, located in her Scans. Patient stated her symptoms are worsening and she would like to beseen rio. Please call back to advise. documented in this encounter Plan of Treatment Not on file documented as of this encounter Visit Diagnoses Not on filedocumented in this encounter Care Teams Cosmetology Educator Relationship Specialty Start Date End Date Arlen Ryan ND [address] [place] [phone] PCP - General 02/21/20 08/04/21 documented as of this encounter
--- OUTSIDE RECORDS SUMMARY | 2024-05-27 02:37 | XMS_ITS | Encounter Summary ---
Author Organization [facility] Address [address] [place] [address] Care Team Providers Care Slps Name Role Phone SyAlex mascorroyoandy BARROS Primary Care Provider + Reason for Referral * Radiology Services (Routine) - Closed Specialty Diagnoses / Procedures Referred By Stephanie t Referred To Contact Diagnoses Polyarthralgia Procedures XR SACROILIAC JOINTS 3 OR MORE VIEWS Audi Smart MD [address] [place] [phone] Referral ID Status Reason Start Date Expiration Date Visits Re quested Visits Authorized [id number] Closed 08/28/2020 1 1 * Radiology Services (Routine) - Closed Specialty Diagnoses / Procedures Referred By Stephanie price Referred To Contact Diagnoses Polyarthralgia Procedures XR CERVICAL SPINE 2-3 VIEWS Audi Smart MD [address] [place] [phone] Referral ID Status Reason Start Date Expiration Date Visits Re quested Visits Authorized [id number] Closed 08/28/2020 1 1 * Radiology Services (Routine) - Closed Specialty Diagnoses / Procedures Referred By Contac t Referred To Contact Diagnoses Polyarthralgia Procedures XR LUMBAR SPINE 2-3 VIEWS Audi Smart MD [address] [place] [phone] Referral ID Status Reason Start Date Expiration Date Visits Re quested Visits Authorized [id number] Closed 08/28/2020 1 1 Reason for Visit * Reason Comments New Patient Visit Back Pain back pain to top of head Tingling mostly right sided * Referral (Routine) - Receiving Office to Obtain Authorization Specialty Diagnoses / Procedures Referred By Stephanie price Referred To Contact Rheumatology Diagnoses Pain in unspecified joint Raised antibody titer Angelica Murphy FNP [address] [place] [address] [place] [address] [address] [place] [id number] Referral ID Status Reason Start Date Expiration Date Visits Requested Visits Authorized [id number] Receiving Office to Obtain Authorization 1 1 Encounter Details Date Type Department Care Team (Late st Contact Info) Description 08/28/2020 14:00 EST Office Visit [facility] Rheumatology & Immunology - [address] [phone] Audi Smart MD [address] [place] [phone] Positive NOLAN (antinuclear antibody) (Primary Dx); Polyarthralgia; Chronic fatigue; Fibromyalgia Social History Tobacco Use Types Packs/Day Years [...] 15:56 EST documented as of this encounter Last Filed Vital Signs Vital Sign Reading Time Taken Comments Blood Pressure 119/72 08/28/2020 1423 EST Pulse 106 08/28/2020 1423 EST Temperature - - Respiratory Rate - - Oxygen Saturation - - Inhaled Oxygen Concentration - - Weight 85.3 kg (188 lb) 08/28/2020 1423 EST Height 162.6 cm (5' 4) 08/28/2020 1423 EST Body Mass Index 32.27 08/28/2020 1423 EST documented in this encounter Functional Status [...] this encounter Patient Instructions * Patient Instructions* Audi Smart MD - 08/28/2020 14:00 EST It seems less likely that you have any autoimmune disease, however we can get some more lab work toconfirm. - get lab work today (2nd floor) [...] like Lyrica, Cymbalta or Milnacipran for fibromyalgia Return to visit as needed documented in this encounter Progress Notes * Audi Smart MD - 08/28/2020 1400 EST Division of Rheumatology and Clinical Immunology Date of Service: 08/28/20 Reason for Consult: Positive NOLAN, arthralgia Referring Provider: Angelica Murphy FNP History of Present Illness: Barbi Ivey is a 44 y.o. female with PMHx as below. For the past 4-5 years she has had pain in Neck, R shoulder, R elbow, R hip (laterally and groin), R knee. In the past 1 year she has had low back pain. Pain is worse: Mornings, night, with activity Pain is better: Mid day Reports her shoulders looks swollen. Morning Stiffness: 30 minutes Medications tried: Cyclobenzaprine does not help much. She takes Ibuprofen occasionally but does not help. She has not tried PT. Reports fatigue for about 1 year. Reports having brain fog. Reports chronic poor sleep, does not feel refreshed after night's sleep. She has anxiety, depression. Reports abdominal cramps, constipation. Reports some occasional SOB when laying down. Denies NICHOLE. She reports having some skin rash under her breasts. Reports some dry eyes, uses eye drops occasionally. Denies dry mouth. She has gained about 20 pounds in the past 6-12 months. <> Denies nasal crusting, frequent sinusitis, epistaxis, oral ulcers, genital ulcers, cough, hemoptysis. <> Denies h/o malar skin rash, photosensitivity, oral ulcers, serositis (pleuritis, pericarditis), hemolytic anemia, leukopenia/lymphopenia, thrombocytopenia, chronic kidney disease, seizures. Has been 4 times, 2 live births, 2 miscarriages (1st and 3rd, 12 weeks). Denies h/o arterial/venous thrombosis. <> Denies h/o skin thickening/tightening, finger tip ulcers, Raynaud's Phenomenon. <> Denies fever, weight loss. <> Denies h/o Psoriasis, dactylitis, uveitis/eye inflammation. Denies family h/o Psoriasis, Ankylosing Spondylitis, Crohn's disease, Ulcerative colitis. There are no active problems to display for this patient. Current Outpatient Medications Medication Sig ??? aMILoride [...] tablet Take 75 mg by mouth daily. ALLERGIES: Penicillins Past Medical History: Diagnosis Date ??? Anxiety and depression ??? Lyme disease ??? Nephrolithiasis Past Surgical History: Procedure Laterality Date ??? CARPAL TUNNEL RELEASE Right ??? SHOULDER SURGERY Right Family History Problem Relation Age of Onset ??? Hypertension Mother ??? Heart Disease Mother Atrial Fibrillation Social History Socioeconomic History ??? Marital status: Spouse name: Not on file ??? Number of children: Not on file ??? Years of education: Not on file ??? Highest education level: Not on file Occupational History ??? Not on file Social Needs ??? Financial resource strain: Not on file ??? Food insecurity Worry: Not on file Inability: Not on file ??? Transportation needs Medical: Not on file Non-medical: Not on file Tobacco Use ??? Smoking status: Never Smoker ??? Smokeless tobacco: Never Used Substance and Sexual Activity ??? Alcohol use: Yes Comment: Occasionally 1-2 drinks in a month ??? Drug use: Yes Types: Marijuana ??? Sexual activity: Not on file Lifestyle ??? Physical activity Days per week: Not on file Minutes per session: Not on file ??? Stress: Not on file Relationships ??? Social connections Talks on phone: Not on file Gets together: Not on file Attends jewish service: Not on file Active member of club or organization: Not on file Attends meetings of clubs or organizations: Not on file Relationship status: Not on file ??? Intimate partner violence Fear of current or ex partner: Not on file Emotionally abused: Not on file Physically abused: Not on file Forced sexual activity: Not on file Other Topics Concern ??? Not on file Social History Narrative ??? Not on file REVIEW OF SYSTEMS: 10 organ review of system was negative except as in HPI PHYSICAL EXAMINATION: BP 119/72 (BP Cuff Location: Left arm, BP Patient Position: Sitting, BP Cuff Sizes: Adult, regular) Pulse (!) 106 Ht 162.6 cm (64) Wt 85.3 kg (188 lb) LMP 08/28/2017 BMI 32.27 kg/m?? Constitutional: Not in distress Head: Normocephalic Eyes: No erythema. Conjunctiva moist Mouth: No oral ulcers. Mucosa moist. Lymph nodes: No cervical lymphadenopathy Cardiac: Normal rate, rhythm. Normal S1S2, no murmurs Pulmonary: Normal breath sounds on auscultation. Abdominal: No organomegaly, soft, nontender. Neurological: AOx3. Extremity: No edema Skin: no rashes. MSK Exam: Muscle strength: power 5/5 in b/l UE and LE in proximal and distal muscle groups Tender points: Neck: Intact ROM Back: has tenderness through out thoracic and lumbar spine and paraspinal area, B/L SI Joints. Shoulder: Intact ROM. No tenderness, swelling in b/l shoulders. Elbows: Has tenderness in R elbow joint line and R lateral epicondyle. No swelling, erythema, warmth. Wrists: No joint swelling, tenderness, erythema. Intact ROM Hands: has minimal tenderness in R #4 PIP. No swelling. Intact ROM Hips: Intact ROM. Has mild tenderness in R>L greater trochanter. Has minimal pain with external rotation of R hip. Knees, Ankles, Feet: No joint swelling, tenderness, erythema. Intact ROM No skin tightness in hands. No nail pitting or onycholysis No Dactylitis, Enthesitis. Review of Outside Records/Tests: 06/19/20: TSH: 2.5 ESR: 16 CRP: 0.24 mg/dL (normal) Creatinine: 0.84 WBC: 5.4k, Hb: 13.7, Plt: 264k LABS Lab Requisition on 06/19/2020 Component Date Value ??? NOLAN Interpretation 06/19/2020 Positive* ??? NOLAN Titer and Pattern 1 06/19/2020 1:160 Speckled Results for orders placed or performed in visit on 08/28/20 ANTI DNA (DOUBLE STRANDED) Result Value Ref Range Anti-DNA (Double Stranded) <12.3 <30.0 IU/mL SM (GUTIERREZ) ANTIBODY Result Value Ref Range SM (Gutierrez) Antibody 2.2 <20.0 Units COMMISSION SPECIALIST ANTIBODIES BY LEBRON Result Value Ref Range COMMISSION SPECIALIST Antibody 2.2 <20.0 Units SSA ANTIBODIES BY [...] <=60 U/mL Thyroperoxidase Ab <28 <=60 U/mL IMAGING: XR CERVICAL SPINE 2-3 VIEWS 08/28/2020 ?? Clinical History/Comments: Chronic neck pain. ?? Findings: ?? Two-view cervical spine 2 views of the cervical spine shows good alignment of vertebral bodies. No fracture or subluxation is seen. XR LUMBAR SPINE 2-3 VIEWS 08/28/2020 ?? Clinical History/Comments: Chronic low back pain, [...] calcifications of the abdominal aorta are noted. XR SACROILIAC JOINTS 3 OR MORE VIEWS 08/28/2020 ?? Clinical History/Comments: Chronic low back pain, evaluate for inflammatory vs degenerative sacroiliitis. ?? Findings: ?? Sacroiliac joints bilateral ?? Findings: There is no evidence of fracture, dislocation or bony deformity. ?? IMPRESSION Normal examination. Diagnosis / Assessment: ICD-10-CM ICD-9-CM 1. Positive NOLAN (antinuclear antibody) R76.8 795.79 2. Polyarthralgia M25.50 719.49 3. Chronic fatigue R53.82 780.79 4. Fibromyalgia M79.7 729.1 1) Polyarthralgia, Chronic fatigue: Likely Fibromyalgia - history and exam is suggestive of a non-inflammatory etiology of joint pain - less likely to be inflammatory - possible causes: osteoarthritis, fibromyalgia - Work up Labs: - ESR: Normal, CRP: Normal (05/2020) - RF: (-), CCP: (-) 07/2020 - NOLAN: (+) - TSH: Normal (05/2020) - CBC, Cr: Normal (05/2020) - Imaging: - X ray: - C-spine 07/2020: Normal - L-spine: mild degenerative disc and joint disease - SI joints BL: Normal - Mild abnormalities in L-spine does not explain patients symptoms. - has chronic widespread joint pain, chronic fatigue, brain fog, h/o non- refreshing sleep - risk factors for fibromyalgia in this patient: chronic poor non-refreshed sleep, anxiety, depression - referrals to PT, Integrative Medicine - advised regular exercise 2) Positive NOLAN (1:160, Speckled): - patient does not have features suggestive of Lupus - NOLAN is a non-specific test; Though it is positive in SLE and other connective tissue disease, it can also be seen positive in people without any evidence of autoimmune disease. - will check NOLNA subset antibodies (dsDNA, SM, COMMISSION SPECIALIST, SSA, SSB) -> these were negative - sometimes NOLAN is positive due to anti-thyroid antibodies, so I will check them -> these were negative as well. - her low positive NOLAN is unexplained, but not concerning. Recommendations/Evaluation: Patient Instructions It seems less likely that you have any autoimmune disease, however we can get some more lab work toconfirm. - get lab work today (2nd floor) [...] like Lyrica, Cymbalta or Milnacipran for fibromyalgia Return to visit as needed I spent a total of 60 minutes in face to face time with this patient and >50% minutes of that time was spent in counseling and coordination of care as described in the note. Audi Smart MD documented in this encounter Plan of Treatment Not on file documented as of this encounter Results * THYROID ANTIBODIES (08/28/2020 16:57 EST) Anti-Thyroglobulin 26 <=60 U/mL 2019 19:11 EST [facility] Thyroperoxidase Ab <28 <=60 U/mL 2019 19:11 EST [facility] Blood VENOUS BLOOD / Unknown Venipuncture / Unknown 08/28/2020 16:57 EST 08/28/2020 17:49 EST Audi Smart MD CHEMISTRY & BLOOD GA S ORDERABLES Performing Organization Address City/[facility]/ZIP Co de Phone Number [facility] [address] [place] [address] * CCP ANTIBODIES (08/28/2020 16:57 EST) CCP Antibodies <2.5 <5.0 U/mL 08/29/2020 8:24 EST [facility] Blood VENOUS BLOOD / Unknown Venipuncture / Unknown 08/28/2020 16:57 EST 08/28/2020 17:49 EST Audi Smart MD IMMUNOLOGY AND SEROL OGY ORDERABLES Performing Organization Address [facility]/ZIP Co de Phone Number [facility] [address] [place] [address] * RHEUMATOID FACTOR (08/28/2020 16:57 EST) Rheumatoid Factor <8.6 <12.0 IU/mL 08/28/2020 18:26 EST [facility] Blood VENOUS BLOOD / Unknown Venipuncture / Unknown 08/28/2020 16:57 EST 08/28/2020 17:49 EST Audi Smart MD CHEMISTRY & BLOOD GA S ORDERABLES Performing Organization Address City/[facility]/ZIP Co de Phone Number [facility] [address] [place] [address] * SSB ANTIBODIES BY LEBRON (08/28/2020 16:57 EST) SSB Antibody 3.2 <20.0 Units 08/30/2020 13:42 EST [facility] Comment: ? Negative: <20.0 Units ? Weak Positive: 20.0 - 39.9 Units ? Moderate Positive: 40.0 - 80.0 Units ? Strong Positive: >80.0 Units Results were obtained with the [employer] QUANTA Lite SS-B LEBRON. ??SS-B values obtained with different manufacturers' assay methods may not be used interchangeably. ??The magnitude of the reported IgG levels cannot be correlated to an endpoint titer. Blood VENOUS BLOOD / Unknown Venipuncture / Unknown 08/28/2020 16:57 EST 08/28/2020 17:49 EST Audi Smart MD IMMUNOLOGY AND SEROL JEAN ORDERABLES Performing Organization Address City/State/[facility] Co de Phone Number [facility] [address] [place] [address] * SSA ANTIBODIES BY LEBRON (08/28/2020 16:57 EST) SSA Antibody 1.9 <20.0 Units 08/30/2020 13:40 EST [facility] Comment: ? Negative: <20.0 Units ? Weak Positive: 20.0 - 39.9 Units ? Moderate Positive: 40.0 - 80.0 Units ? Strong Positive: >80.0 Units Results were obtained with the [employer] QUANTA Lite SS-A LEBRON. ??SS-A values obtained with different manufacturers' assay methods may not be used interchangeably. ??The magnitude of the reported IgG levels cannot be correlated to an endpoint titer. Blood VENOUS BLOOD / Unknown Venipuncture / Unknown 08/28/2020 16:57 EST 08/28/2020 17:49 EST Audi Smart MD IMMUNOLOGY AND SEROL OGJesusita ORDERABLES Performing Organization Address [facility] de Phone Number [facility] [address] [place] [address] * COMMISSION SPECIALIST ANTIBODIES BY LEBRON (08/28/2020 16:57 EST) COMMISSION SPECIALIST Antibody 2.2 <20.0 Units 08/30/2020 13:45 EST [facility] Comment: ? Negative: <20.0 Units ? Weak Positive: 20.0 - 39.9 Units ? Moderate Positive: 40.0 - 80.0 Units ? Strong Positive: >80.0 Units Results were obtained with the [employer] Quanta Lite COMMISSION SPECIALIST LEBRON. COMMISSION SPECIALIST values obtained with different finisher machine's assay methods may not be used interchangeaby. ??The magnitude of the reported IgG levels cannot be be correlated to an endpoint titer. A positive result in the Quanta Lite COMMISSION SPECIALIST LEBRON indicates the presence of antibodies reactive with the COMMISSION SPECIALIST/Sm complex but cannot distinguish between anti-Sm and anti-COMMISSION SPECIALIST activity. Blood VENOUS BLOOD / Unknown Venipuncture / Unknown 08/28/2020 16:57 EST 08/28/2020 17:49 EST Audi Smart MD IMMUNOLOGY AND SEROL JEAN ORDERABLES Performing Organization Address [facility] de Phone Number [facility] [address] [place] [address] * SM (GUTIERREZ) ANTIBODY (08/28/2020 16:57 EST) SM (Gutierrez) Antibody 2.2 <20.0 Units 08/30/2020 13:44 EST [facility] Comment: ? Negative: <20.0 Units ? Weak Positive: 20.0 - 39.9 Units ? Moderate Positive: 40.0 - 80.0 Units ? Strong Positive: >80.0 Units Results were obtained with the [employer] QUANTA Lite Sm LEBRON. ??Sm values obtained with different manufacturers' assay methods may not be used interchangeably. ??The magnitude of the reported IgG levels cannot be correlated to an endpoint titer. Blood VENOUS BLOOD / Unknown Venipuncture / Unknown 08/28/2020 16:57 EST 08/28/2020 17:49 EST Audi Smart MD IMMUNOLOGY AND SEROL OGJesusita ORDERABLES Performing Organization Address [facility] de Phone Number [facility] [address] [place] [address] * ANTI DNA (DOUBLE STRANDED) (08/28/2020 16:57 EST) [facility] Anti-DNA (Double Stranded) <12.3 <30.0 IU/mL 08/30/2020 12:00 EST [facility] Comment: ? Negative: ??<30.0 IU/mL ? Borderline Positive: ??30.0 - 75.0 IU/mL ? Positive: ??>75.0 IU/mL Results were obtained with the [employer] QUANTA Lite dsDNA SC LEBRON assay on the XGraph DSX. Blood VENOUS BLOOD / Unknown Venipuncture / Unknown 08/28/2020 16:57 EST 08/28/2020 17:49 EST Audi Smart MD IMMUNOLOGY AND SEROL OGJesusita ORDERABLES Performing Organization Address [facility] de Phone Number [facility] [address] [place] [address] * XR SACROILIAC JOINTS 3 OR MORE [...] deformity. IMPRESSION Normal examination. Audi Smart MD [facility]IC IMAGI NG ORDERABLES * XR CERVICAL [...] or subluxation is seen. Audi Smart MD [facility] NG ORDERABLES * XR LUMBAR [...] encounter Visit Diagnoses Diagnosis Positive NOLAN (antinuclear antibody)- Primary Other and unspecified nonspecific immunological findings Polyarthralgia Pain in joint, multiple sites Chronic fatigue Other malaise and fatigue Fibromyalgia Mylagia and myositis, unspecified Polyarthralgia Pain in joint, multiple sites documented in this encounter Discontinued Medications Medication Sig Discontinue Reason Start Date End Da te amitriptyline (ELAVIL) 50 mg tablet Take 50 mg by mouth at bedtime. Therapy completed 01/30/2011 08/28/2020 gabapentin (NEURONTIN) 300 mg capsule Take 300 mg by mouth at bedtime as needed. Therapy completed 01/30/2011 08/28/2020 Multivitamins with Minerals Tab Take 1 Tab by mouth daily. Therapy completed 08/28/2020 oxycodone-acetaminophen (PERCOCET) 5-325 mg per tablet Take 1 Tab by mouth every 4 hours as needed. Therapy completed 08/28/2020 documented as of this encounter Historical Medications * This list may reflect changes made after this encounter. Medication Sig Dispensed Refills Start Date End Date venlafaxine (EFFEXOR) 75 mg tablet Take 75 mg by mouth daily. aMILoride (MIDAMOR) 5 mg tablet Take 5 mg by mouth daily. cholecalciferol, Vitamin D3, 1,000 unit tablet Take 1,000 Units by mouth daily. cyclobenzaprine (FLEXERIL) 10 mg tablet Take 10 mg by mouth 3 times daily. added in this encounter Care Teams Slps Relationship Specialty Start Date End Date Arlen Ryan ND [address] [place] [phone] PCP - General 02/21/20 08/04/21 documented as of this encounter
--- OUTSIDE RECORDS SUMMARY | 2024-05-27 02:37 | XMS_ITS | Encounter Summary ---
Author Organization [facility] Address [address] [place] [address] Care Team Providers Care Retort Cooler Name Role Phone Angelica Murphy TINY Primary Care Provider Reason for Visit * Reason Comments Chronic Pain Encounter Details Date Type Department Care Team (Latest Contact Info) Description 03/28/2022 16:00 EDT Office Visit [facility] Comprehensive Pain Program - [address] [place] [address] Nikko Olivas MD [address] [place] [address] [address] [place] [address] Chronic pain syndrome (Primary Dx) [...] Progress Notes * Nikko Olivas MD - 03/28/2022 1600 EDT COMPREHENSIVE PAIN PROGRAM FOLLOW UP NOTE Barbi is seen today in follow up for management of her Chronic Pain Syndrome. HPI and INTERVAL EVENTS Barbi is enrolled in the [facility] program and has been able to attend all of the meetings except for one when she was camping. It is an hour and a half drive from her place in [place]. Drivinghas recently been a trigger for increased anxiety. This is a new development since the recent sudden of her father. He had been using a chain saw when a branch hit him on the head just 2 monthsago in December. Barbi has some guilt feelings about him since her connection to him had been infrequent. The last time she saw him had been a year, and prior to that it had been 4 years. Driving seems to be the time when she feels the most anxiety. She had to call Violeta to come and get her when she was driving up here for her MRI as she felt she couldn't drive safely anymore on that trip. She feels she has good support in [place]ioleta and they can talk about things that really matter. To help manage the anxiety she is currently taking buspirone 5 mg twice per day which she thinks may be helping. Andher duloxetine has been doubled to 60 mg twice per day. Her prescription ran out for a week but sheis back on it now. With that break in the dosing, she is not yet sure if it is helping her pain much or not. She did get her Medical [facility] card but hasn't used it yet. She has not yet called for an acupuncture appointment. She does have a TENS unit that seemed to help her shoulder pain in the past buthasn't used it recently. Barbi lives with Violeta in the second house on their property with Issa living in the other house. We discussed whether Barbi and Issa desire to stay or are considering divorce. Barbi does find it stressful when Issa comes over to her place. She feels like she always has to beproductive when he is there and that he probably increases her anxiety. 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 Barbi feelslike she could make a life time commitment to Violeta. On top of all the above generators of stress,Barbi's mother has dementia and is starting to get lost. Barbi and her 3 brothers and 1 sister have not yet met to discuss how this will be managed. Mom refuses to consider any moves to assisted living. They have not considered a memory center yet. OBJECTIVE General: Alert, engaged, appropriate, thoughtful. ASSESSMENT/PLAN 1. Barbi has much on her plate. It is understandable why she is having some new symptoms of increased anxiety. I have encouraged her to have some much needed discussions with the people around her-with her siblings regarding mother's dementia, with Issa regarding whether their future includes divorce or staying together, and with Violeta regarding their hopes and plans. A therapist could help guide them but putting off these discussions to a later time does not help her anxiety nor her pain management. 2. If a month-6 weeks trial of duloxetine at 60 mg twice per day hasn't helped her pain she should go back down to her previous level of 60 mg per day. 3. The buspirone needs to be at the ideal spot of not too much (causing fatigue) and too little (not helping her anxiety enough). This may take some additional adjusting. 4. The guilt that she has surrounding her father's needs some attention. Again, a good therapist would be helpful. At the very least, thoughtful conversations with Violeta may help. 5. I encouraged her to consider her TENS unit, an acupuncture visit and consider visiting her dispensary for information. I am happy to see Barbi again if she would find it useful though we usually see patients just once during the compass program. I encourage her to continue her engagement in the [facility] Program. I spent a total of 60 minutes on the date of this encounter meeting with the patient (45 minutes) and reviewing documentation/coordinating care (15 minutes) as described in the above note. No procedures were performed at the time of the visit. Nikko Olivas MD documented in this encounter Plan of Treatment Not on file documented as of this encounter Visit Diagnoses Diagnosis Chronic pain syndrome- Primary documented in this encounter Care Teams Retort Cooler Relationship Specialty Start Date End Date Angelica Murphy FNP [facility] [place] [address] PCP - General 08/05/21 documented as of this encounter
--- OUTSIDE RECORDS SUMMARY | 2024-05-27 02:37 | XMS_ITS | Encounter Summary ---
Author Organization [facility] Address [address] [place] [address] Care Team Providers Care Content Creation Manager Name Role Phone Angelica Murphy TINY Primary Care Provider [phone] Encounter Details Date Type Department Care Team (Latest Contact Info) Description 04/24/2022 Travel Social History Tobacco Use Types Packs/Day [...] on filedocumented in this encounter Care Teams Content Creation Manager Relationship Specialty Start Date End Date Angelica Murphy [place] [address] PCP - General 08/05/21 documented as of this encounter
--- OUTSIDE RECORDS SUMMARY | 2024-05-27 02:37 | XMS_ITS | Encounter Summary ---
Author Organization [facility] Address [address] [place] [address] Care Team Providers Care Legal Transcriptionist Name Role Phone Angelica Murphy TINY Primary Care Provider [phone] Reason for Visit * Reason Comments Pain * Referral (Routine) - Authorization Not Required Specialty Diagnoses / Procedures Referred By Stephanie price Referred To Contact Orthopedic Surgery Diagnoses Pain in left hip Reny Garg, [place] [address] [address] [facility] [address] [place] [address] Referral ID Status Reason Start Date Expiration Date Visits Requested Visits Authorized [id number] Authorization Not Required 1 1 Encounter Details Date Type Department Care Team (Latest Contact Info) Description 04/24/2022 10:45 EDT Office Visit [facility] [address] [place] [address] Grayson Godoy PA-C [address] [facility] [address] [place] [address] Greater trochanteric bursitis of left hip (Primary Dx) Social History Tobacco Use Types [...] 10:59 EDT documented as of this encounter Last Filed Vital Signs Vital Sign Reading Time Taken Comments Blood Pressure - - Pulse 94 04/24/2022 1102 EDT Temperature - - Respiratory Rate - - Oxygen Saturation 97% 04/24/2022 1102 EDT Inhaled Oxygen Concentration - - Weight 83.9 kg (185 lb) 04/24/2022 1102 EDT Height 162.6 cm (5' 4) 04/24/2022 1102 EDT Body Mass Index 31.76 04/24/2022 1102 EDT documented in this encounter Functional Status Functional [...] as of this encounter Progress Notes * Peace Torres MA - 04/24/2022 1045 EDT Barbi is a new patient who presents today for an evaluation of her left hip. Referred from [facility] 04/03/22 per note: has MRI fidnings suspicious of labral tear or partial tear of left hip. Had fall in winter. Progressive pain. Soreness when sitting. Burning when she walks. XR bilateral hips 02/20/22 MRI? Pushed? * Grayson Godoy PA-C - 04/24/2022 1045 EDTAssociated Order(s): Large Joint Injection/Arthrocentesis: L greater trochanteric bursa Post-Procedure Diagnose(s): Greater trochanteric bursitis of left hip CHIEF COMPLAINT: Left hip pain Chief Complaint Patient presents with ??? Left Hip - Pain SUBJECTIVE: Barbi here for evaluation of her left hip pain. She has had some intermittent discomfort to the hip for greater than a year however exacerbation of pain when she slipped and fell on icem[place] spring of this year. Her leg slipped out from under her and she fell hyper flexing the left hipand then fell onto the left hip and hit from her front door. At that time she was able to stand and ambulate but she had considerable pain to the side and back of her hip. Since then she had a trend towards some improvement but has not had complete resolution of all discomfort. Still having pain especially when sitting and driving. Rising from a seated position is often painful. Frequent nocturnal symptoms and painful she lies on the affected side. Pain is localized lateral and posterior and radiates only part way down her leg. Denies any numbness. Seen by primary care and MRI was ordered which showed suspicion for labral tear. The past medical, family and social history have been reviewed in the patient chart. Past Medical History: Diagnosis Date ??? Anxiety [...] No facility-administered medications prior to visit. OBJECTIVE: Pulse 94 Ht 162.6 cm (64) Wt 83.9 kg (185 lb) LMP 08/28/2017 SpO2 97% BMI 31.76 kg/m?? Body mass index is 31.76 kg/m??. On physical exam, the patient is found to be a cooperative female who appears to be alert and oriented x 3. She is well-developed, well-nourished and in no significant distress. Breathing is unlabored. Skin is warm and dry to inspection and palpation. Appears to be neurovascularly intact. Ambulateswith a steady gait. Exam of the left hip there is tenderness over the greater trochanter no swelling, erythema or ecchymosis. Maintains adequate range of motion with flexion, extension, abduction/adduction, internal andexternal rotation however with a flexed hip internal rotation did cause pain on the lateral side ofher hip radiating along the groin. Sahnnon also had slight amount of discomfort in the same region not as significant as the internal rotation. Abduction also cause discomfort lateral and posterior. Negative Casey. Hip flexion with internal rotation did have some mild to moderate discomfort consistentwith piriformis. Straight leg raise intact ASSESSMENT: Left trochanteric bursitis PLAN: We are still waiting for the images and report from her MRI however her signs and symptoms are more consistent with trochanteric bursitis and possible piriformis syndrome and gluteal strain however, cannot thoroughly rule out internal derangement such as labral tear. Diagnostic cortisone injection to the trochanteric bursa was done. She was given referral to physical therapy and follow-up in [address] Garza Procedure: Large Joint Injection/Arthrocentesis: L greater trochanteric bursa on 04/24/2022 10:45 Indications: pain Details: 22 G needle, lateral approach Medications: 3 mL lidocaine (PF) 10 mg/mL (1 %); 40 mg methylPREDNISolone ACETATE 40 mg/mL Outcome: tolerated well, no immediate complications Procedure, treatment alternatives, risks and benefits explained, specific risks discussed. Consent was given by the patient. Immediately prior to procedure a time out was called to verify the correctpatient, procedure, equipment, computer systems support specialist and site/side marked as required. Patient was prepped and draped in the usual sterile fashion. to assess outcome of the injection and therapy. This note was prepared using voice recognition software and the EMR. There may be inadvertent errors and omissions. Jesus Godoy PA-C 04/24/2022 documented in this encounter Plan of Treatment Not on file documented as of this encounter Procedures Procedure Name Priority Date/Time Associated Diagnosis Comments LARGE JOINT INJECTION/ARTHROCE NTESIS Routine 04/24/2022 10:45 EDT Greater trochanteric bursitis of left hip documented in this encounter Results * CT ARTHROCENTESIS ASPIR&/INJ MAJOR JT/BURSA W/O US (04/24/2022 10:45 EDT) Narrative [facility] POINT OF CARE - 04/24/2022 10:45 EDT Grayson Godoy PA-C ? 04/24/2022 12:15 Large Joint Injection/Arthrocentesis: L greater trochanteric bursa on 04/24/2022 10:45 Indications: pain Details: 22 G needle, lateral approach Medications: 3 mL lidocaine (PF) 10 mg/mL (1 %); 40 mg methylPREDNISolone ACETATE 40 mg/mL Outcome: tolerated well, no immediate complications Procedure, treatment alternatives, risks and benefits explained, specific risks discussed. Consent was given by the patient. Immediately prior to procedure a time out was called to verify the correct patient, procedure, equipment, computer systems support specialist and site/side marked as required. Patient was prepped and draped in the usual sterile fashion. Grayson Godoy PA-C PROCEDURE/MINOR PAEZ RGICAL ORDERABLES [facility] POINT OF CARE documented in this encounter Visit Diagnoses Diagnosis Greater trochanteric bursitis of left hip- Primary Enthesopathy of hip region documented in this encounter Administered Medications Inactive Administered Medications - up to 3 most recent administrations Medication Order MAR Action Action Date Dose Rate Site lidocaine (PF) 10 mg/mL (1 %) injection 3 mL 3 mL, other, Once PRN Procedure, 1 dose, Starting on Nithya 04/24/22 at 1045, Until Nithya 04/24/22 at 1045, Routine Given 04/24/2022 10:45 EDT 3 mL methylPREDNISolone ACETATE (DEPO-MEDROL) injection 40 mg 40 mg, intra-articular, Once PRN Procedure, 1 dose, Starting on Nithya 04/24/22 at 1045, Until Nithya 04/24/22 at 1045, Routine Given 04/24/2022 10:45 EDT 40 mg documented in this encounter Historical Medications * This list may reflect changes made after this encounter. Medication Sig Dispensed Refills Start Date End Date busPIRone (BUSPAR) 5 mg tablet Take 5 mg by mouth 2 times daily. 04/16/2022 cellulose, bulk, 100 % powder 03/14/2022 magnesium oxide (MAG-OX) 400 mg (241.3 mg magnesium) tablet TAKE ONE TABLET BY MOUTH EVERY DAY WITH MEALS 04/16/2022 omega-3 fatty acids 1,000 mg capsule capsule Take 1 g by mouth daily. pregabalin (LYRICA) 75 mg capsule 04/22/2022 SUMAtriptan (IMITREX) 100 mg tablet Take by mouth as needed. added in this encounter Care Teams Legal Transcriptionist Relationship Specialty Start Date End Date [place] [address] PCP - General 08/05/21 documented as of this encounter
--- OUTSIDE RECORDS SUMMARY | 2024-05-27 02:37 | XMS_ITS | Encounter Summary ---
Author Organization [facility] Address [address] [place] [address] Care Team Providers Care Flour Blender Name Role Phone Angelica Murphy TINY Primary Care Provider [phone] Reason for Visit * Reason Comments Chronic Pain Encounter Details Date Type Department Care Team (Latest Contact Info) Description 04/22/2022 13:15 EDT Group Visit [facility] Comprehensive Pain Program - [address] [place] [address] Julia Montez, PhD [address] [place] [address] [address] [place] [address] Anxiety about health (Primary Dx); [...] Group Note - Julia Montez, PhD - 04/22/2022 1315 EDT Date: 04/22/2022 Start Time: 13:15 End Time: 14:45 Comprehensive Pain Program COMPASS Living Session 9 of 12 90-minute group Number of participants: 8 (8 in person and 0 virtual) Topic: Building Momentum Session Goals: 1. Introduce Momentum Plan Workbook 2. Identify potential barriers and how to overcome 3. Explore and identify body wisdom 4. Practice mindfulness Individual Notes: Arrival: prompt Participation throughout session: engaged During a brief check-in, Barbi stated that she enjoyed glamping in [facility] last week. Discussed and explored barriers and how to overcome them. Barbi participated in dyad/small group discussion, responding to prompt If my body could talk, what would it say? Treatment Process: Obstacles to treatment: n/a Diagnostic impression: ICD-10-CM ICD-9-CM 1. Anxiety about health F41.8 300.09 2. Chronic pain syndrome G89.4 338.4 Rationale for frequency and duration of therapy: Treatment at [facility] includes participating in this 12-week Acceptance and Commitment Therapy group program. Participation in additional individual and group therapies is strongly encouraged for optimal treatment. Recommendations for the upcoming week: Home Practice: * Continue to identify DARE strategies to address HARD internal barriers * Momentum Plan Workbook: Review to become familiar * Momentum Plan Workbook: Complete pages 6 & 8 * Record in gratitude journal daily (3 things that are different from previous days) * Daily relaxation practice and/or mindfulness ____ minutes a day documented in this encounter Plan of Treatment Not on file documented as of this encounter Visit Diagnoses Diagnosis Anxiety about health- Primary Chronic pain syndrome documented in this encounter Care Teams Flour Blender Relationship Specialty Start Date End Date Angelica Murphy FNP [place] [address] PCP - General 08/05/21 documented as of this encounter
--- OUTSIDE RECORDS SUMMARY | 2024-05-27 02:37 | XMS_ITS | Encounter Summary ---
Author Organization [facility] Address [address] [place] [address] Care Team Providers Care Forming Department End Finder Name Role Phone Jim Wei MD Primary Care Provider Un available Encounter Details Date Type Department Care Team ([facility] st Contact Info) Description 02/27/2017 Historical Results Only [facility] Radiology Results [address] [place] [address] Arlen Ryan, [place] [address] [place] [phone] Social History Tobacco Use Types Packs/Day Years [...] Name Priority Date/Time Associated Diagnosis Comments XR HIP RIGHT 2-3 VIEWS, OPTIONAL PELVIS 02/27/2017 8:21 EDT documented in this encounter Results * XR HIP RIGHT 2-3 VIEWS, OPTIONAL PELVIS (02/27/2017 8:21 EDT) Anatomical Region Laterality Modality Lower Extremities Right Other 02/27/2017 8:21 EDT Narrative 02/27/2017 8:24 EDT ? EXAM: RADIOLOGY/HIP RIGHT 2-3 VIEWS ? EX. D/ (0812) ? CLINICAL INFORMATION: ? M25.551 (R) HIP PAIN ? A/P ?? LATERAL VIEW ? INDICATION: ? M25.551 (R) HIP PAIN: A/P ?? LATERAL VIEW PAIN RIGHT ? HIP ? TECHNIQUE: ??2 views right hip. ? COMPARISON: None. ? FINDINGS: Early right hip acetabular roof marginal osteophyte ? formation is seen. The pubic rami appear intact. The joint space ? appears preserved. The right SI joint is unremarkable. ? IMPRESSION: ? 1. Trace right hip osteoarthritis. ? REPORT SIGNED IN OTHER VENDOR SYSTEM 02/27/2017 ?Reported By: Romel Pandey MD ? CC: ? Transcribed Date/Time: 02/27/2017 (0824) ? Agency Manager: ? Printed Date/Time: 02/14/2019 (0842) ? PAGE 1 ? Signed Report ? Procedure Note Romel Pandey MD - 07/06/2019 EXAM: RADIOLOGY/HIP RIGHT 2-3 VIEWS EX. D/ (0812) CLINICAL INFORMATION: M25.551 (R) HIP PAIN A/P LATERAL VIEW INDICATION: M25.551 (R) HIP PAIN: A/P LATERAL VIEW PAIN RIGHT HIP TECHNIQUE: 2 views right hip. COMPARISON: None. FINDINGS: Early right hip acetabular roof marginal osteophyte formation is seen. The pubic rami appear intact. The joint space appears preserved. The right SI joint is unremarkable. IMPRESSION: 1. Trace right hip osteoarthritis. REPORT SIGNED IN OTHER VENDOR SYSTEM 02/27/2017 Reported By: Romel Pandey MD CC: Transcribed Date/Time: 02/27/2017 (0824) Agency Manager: Printed Date/Time: 02/14/2019 (0801) PAGE 1 Signed Report Arlen Shelby ND IMG DIAGNOSTIC I MAGING ORDERABLES documented in this encounter Visit Diagnoses Not on filedocumented in this encounter Care Teams Forming Department End Finder Relationship Specialty Start Date End Date Jim Wei MD PCP - General 08/11/11 02/20/20 documented as of this encounter
--- OUTSIDE RECORDS SUMMARY | 2024-05-27 02:37 | XMS_ITS | Encounter Summary ---
Author Organization [facility] Address [address] [place] [address] Care Team Providers Care Solar Sales Name Role Phone Angelica Murphy TINY Primary Care Provider [phone] Reason for Visit * Reason Comments Chronic Pain Encounter Details Date Type Department Care Team (Latest Contact Info) Description 02/25/2022 13:15 EDT Group Visit [facility] Comprehensive Pain Program - [address] [place] [address] Julia Montez, PhD [address] [place] [address] [address] [place] [address] Anxiety about health (Primary Dx); [...] Group Note - Julia Montez, PhD - 02/25/2022 1315 EDT Date: 02/25/2022 Start Time: 13:15 End Time: 14:45 Comprehensive Pain Program COMPASS Living Session 2 of 12 90-minute group Number of participants: 8 (8 in person and 0 virtual) Topic: Beginning Your Journey Session Goals: 1. Make introductions, set group norms 2. Learn about Acceptance and Commitment Therapy treatment approach 3. Identify common experiences associated with chronic pain 4. Understand role of pain diary 5. Sign up for at least one individual & one group integrative therapy offered at [facility] Individual Notes: Arrival: prompt Participation throughout session: engaged During a brief check-in, she shared that she has Lyme and fibromyalgia, adding that it is hard to walk. She hopes to be able to decrease pain and function normally as a result of being in this program. Contributed to group's word cloud related to chronic pain associations. Engaged as group generated list of adaptive traits and skills developed as a result of having to cope with chronic pain. Obstacles to treatment: n/a Diagnostic impression: ICD-10-CM ICD-9-CM 1. Anxiety about health F41.8 300.09 2. Chronic pain syndrome G89.4 338.4 Rationale for frequency and duration of therapy: Treatment at [facility] includes participating in this 12-week Acceptance and Commitment Therapy group program. Participation in additional individual and group therapies is strongly encouraged for optimal treatment. Recommendations for the upcoming week: Home Practice: ??? Complete and turn in treatment agreement and pre-COMPASS questionnaire ??? Record in pain diary 3 consistent times a day ??? Read Serenity Creed daily ??? Complete Setting Intentions Worksheet ??? Schedule at least one integrative therapy by calling [phone]. documented in this encounter Plan of Treatment Not on file documented as of this encounter Visit Diagnoses Diagnosis Anxiety about health- Primary Chronic pain syndrome documented in this encounter Care Teams Solar Sales Relationship Specialty Start Date End Date Angelica Murphy FNP [place] [address] PCP - General 08/05/21 documented as of this encounter
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
--- OUTSIDE RECORDS SUMMARY | 2024-05-27 02:37 | XMS_ITS | Encounter Summary ---
Author Organization [facility] Address [address] [place] [address] Care Team Providers Care Animal Damage Control Agent Name Role Phone Angelica Murphy TINY Primary Care Provider [phone] Reason for Visit * Reason Comments Chronic Pain Encounter Details Date Type Department Care Team (Latest Contact Info) Description 04/08/2022 13:15 EDT Group Visit [facility] Comprehensive Pain Program - [address] [place] [address] Julia Montez, PhD [address] [place] [address] [address] [place] [address] Adjustment disorder with anxiety (Primary Dx); Anxiety about health; Chronic pain syndrome Social History Tobacco Use [...] Group Note - Julia Montez, PhD - 04/08/2022 1315 EDT Date: 04/08/2022 Start Time: 13:15 End Time: 14:45 Comprehensive Pain Program [facility]PASS Living Session 7 of 12 90-minute group Number of participants: 8 in person Topic: Mental Yoga Session Goals: 1. Understand the role of mental rules as they relate to choices based on pain 2. Identify effective ways to increase psychological flexibility and reduce suffering 3. Practice using tools useful to increase psychological flexibility 4. Introduce mindfulness technique to practice ???mental yoga?? Individual Notes: Patient arrival: prompt Participation throughout session: engaged During a brief check-in, she shared that she built resilience in the past week by going to [employer] Discussed unhelpful thinking patterns and how to challenge them, replacing with alternative, more helpful thoughts. Acknowledged a tendency toward magnification as an unhelpful thinking pattern. Practiced using unhooking (cognitive defusion) tools with the group using various strategies duringsession. Treatment Process: Obstacles to treatment: n/a Diagnostic impression: ICD-10-CM ICD-9-CM 1. Adjustment disorder with anxiety F43.22 309.24 2. Anxiety about health F41.8 300.09 3. Chronic pain syndrome G89.4 338.4 Rationale for frequency and duration of therapy: Treatment at [facility] includes participating in this 12-week Acceptance and Commitment Therapy group program. Participation in additional individual and group integrative therapies is strongly encouraged for optimal treatment. Recommendations for the upcoming week: Home Practice: 1. Record in thought diary daily to identify thoughts that 'hook you and ways to unhook 2. Complete Mental Rules worksheet 4. Practice any of the mental yoga/cognitive defusion strategies daily 5. Practice using mantra or grounding phrase daily documented in this encounter Plan of Treatment Not on file documented as of this encounter Visit Diagnoses Diagnosis Adjustment disorder with anxiety- Primary Anxiety about health Chronic pain syndrome documented in this encounter Care Teams Animal Damage Control Agent Relationship Specialty Start Date End Date Angelica Murphy FNP [address] [place] [address] PCP - General 08/05/21 documented as of this encounter
--- OUTSIDE RECORDS SUMMARY | 2024-05-27 02:37 | XMS_ITS | Encounter Summary ---
Author Organization [facility] Address [address] [place] [address] Care Team Providers Care Platform Mill Supervisor Name Role Phone SyAlex mascorrohanie FIORELLA Primary Care Provider + Angelica Murphy Primary Care Provider [phone] Encounter Details Date Type Department Care Team (Late st Contact Info) Description 06/20/2020 Lab Requisition [facility] Pathology & Laboratory Medicine - [address] [phone] Outr Resulting Lab, Provider Social History Tobacco [...] Procedure Name Priority Date/Time Associated Diagnosis Comments ANTI NUCLEAR AB (NOLAN), IFA Routine 06/19/2020 16:00 EDT documented in this encounter Results * (ABNORMAL) ANTI NUCLEAR AB (NOLAN), IFA (06/19/2020 16:00 EDT) NOLAN Interpretation Positive(A) Negative 06/21/2020 15:01 EDT [facility] Comment: For titers greater than or equal to 1:160 (except the centromere and nucleolar patterns) it is recommended that specific follow-up autoantibody testing ??(such as for dsDNA and Extractable Nuclear Antigens) be performed on all diffuse and/or speckled patterns NOTE: For add-on testing dsDNA is stable for 7 days refrigerated while Extractable Nuclear Antigens are only stable for 48 hours refrigerated. NOLAN Titer and Pattern 1 1:160 Speckled 06/21/2020 15:01 EDT [facility] Blood VENOUS BLOOD / Unknown 06/19/2020 16:00 EDT 06/20/2020 19:32 EDT Narrative [facility] - 06/21/2020 15:01 EDT Results were obtained with the [employer] NOVA Lite HEp-2 NOLAN Kit by indirect immunofluorescence. Provider Outr Resulting Lab IMMUNOLOGY A ND SEROLOGY ORDERABLES [facility] [address] [place] [address] documented in this encounter Visit Diagnoses Not on filedocumented in this encounter Care Teams Platform Mill Supervisor Relationship Specialty Start Date End Date Arlen Ryan ND [address] [place] [phone] PCP - General 02/21/20 08/04/21 Angelica Murphy [place]NP [facility] [place] [address] PCP - General 08/05/21 documented as of this encounter
--- OUTSIDE RECORDS SUMMARY | 2024-05-27 02:38 | XMS_ITS | Encounter Summary ---
Author Organization [facility] Address [address] [place] [address] Care Team Providers Care Cashier Office Name Role Phone Unavailable Primary Care Provider Unavailabl e Encounter Details Date Type Department Care Team (Late st Contact Info) Description 08/22/2002 13:19 EST Hospital Encounter [facility] - Other [address] [place], [place] [id number] Carlos Goodson MD [address] [place] [id number] Unknown, MD Tito Social History Tobacco Use Types Packs/Day Years [...] 9:53 EST documented as of this encounter Plan of Treatment Not on file documented as of this encounter Procedures Procedure Name Priority Date/Time Associated Diagnosis Comments SURGICAL PATHOLOGY Routine 08/22/2002 0:00 EST documented in this encounter Results * SURGICAL PATHOLOGY (08/22/2002 0:00 EST) Pathology Report: SURGICAL PATHOLOGY REPORT Reports generated via electronic interface contain original data; however they are lacking the format of the original report. Caution should be taken when reading/interpreti ng unformatted reports. Name: ? BARBI IVEY ? Accession #: ? [id number] ? : ? 1975 (Age: 26) ??F ? Collect Date: ? 08/22/2002 ? Location: ? [facility] ? Receive Date: ? 08/22/2002 ? Provider: Carlos GOODSON MD Copy to: ABDOULAYE COOK MD ? Final Pathologic Diagnosis: ? Third trimester cash placenta: 1. 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 3. ?Acute vasculitis of chorionic plate vessels. 4. ?Marked plasma cell deciduitis. Document reviewed and electronically signed by: Cheryl Espana MD Report ??Date: 08/26/2002 13:22 By the signature above, the attending physician certifies that he/she has personally conducted a gross and/or microscopic examination of the described specimens and rendered or confirmed the above diagnosis. Specimen(s) Received: ? [facility] [id number] (4) Clinical History: ? Gross Description: ? Four slides are received for review from [facility] labelled [id number]. ?? End of Report STEVE THAKUR 08/22/2002 08/22/2002 13: 10 EST R Kian Goodson MD PATHOLOGY ORDERABLE S Performing Organization Address City/State/RUST Co de Phone Number [facility] [address] [place] [address] documented in this encounter Visit Diagnoses Not on filedocumented in this encounter
--- OUTSIDE RECORDS SUMMARY | 2024-05-27 02:38 | XMS_ITS | Encounter Summary ---
Author Organization [facility] Address [address] [place] [address] Care Team Providers Care Ict Support Engineer Name Role Phone Jim Wei MD Primary Care Provider Un available Encounter Details Date Type Department Care Team ([facility] st Contact Info) Description 10/25/2015 Historical Results Only [facility] [place] [address] [place] [address] Law Santiago MD [address] [facility] [address] [place], [place] [address] Social History Tobacco Use Types Packs/Day Years [...] Procedure Name Priority Date/Time Associated Diagnosis Comments NM CARD SPECT NUCLEAR STRESS 10/25/2015 10:08 EST documented in this encounter Results * NM CARD SPECT NUCLEAR STRESS (10/25/2015 10:08 EST) Anatomical Region Laterality Modality Chest Nuclear Stress 10/25/2015 10:0 8 EST Narrative 10/26/2015 10:48 EST ? EXAM: NUCLEAR MEDICINE/NUCLEAR STRESS JUAN EX. D/ (1008) ? CLINICAL INFORMATION: ? ATYPICAL CHEST PAIN WITH EKG CHANGES ? *[facility]* ? *[facility]* ? [address] ? [place] [address] ? Myocardial Perfusion Imaging - SPECT ? Thomas protocol ? Date of study: ??10/25/2015 ? *PATIENT PRESENTATION* ? Height: ? 162.6cm (64in ) ? Blood Pressure: ? Weight: ? 86.4kg (190lb ) ? BSA: ?2.01m S 2 ? Ordering physician: Law Santiago ? Impressions: ? - Negative stress test. ? - Normal perfusion by Tc99m Sestamibi Imaging. ? Summary: ? 1. Myocardial perfusion imaging: Moderate size, moderate intensity ?fixed anteroseptal defect. Dense breast shadow noted on raw ?imaging. Defect resolves with attenuation correction. Normal ?anterior wall motion. Defect c/w breast artifact. ? 2. The calculated left ventricular ejection fraction after stress: ?71%. No left ventricular regional motion abnormality. ? Indication: ?? 786.50 Chest Pain, Unspecified. ? History: ??SEEN OVERNIGHT AT [facility] ON 10/05/15 FOR NONEXERTIONAL SHARP ? LEFT SIDED CHEST PAIN THAT RADIATED TO NECK AND BACK. DISCOMFORT WAS ? NOT RESPONSIVE TO NITRO. TREATED WITH ANTACIDS AND NAPROXEN. NEGATIVE ? CARDIAC WORKUP. SINCE THEN, OCC CHEST DISCOMFORT , BUT MUCH LESS ? INTENSE. ? NO PREVIOUS CARDIAC HISTORY. ? Risk factors: Family history of coronary artery disease. Hypertension. ? MEDS: AMILORIDE 5 MG, HCTZ 12.5 MG BID, KCL 10 MEQ BID, LISINOPRIL 2.5 ? MG, NAPROXEN, IMITREX. ? ALLERGIES: PCN. ? Imaging Technique: ? Protocol: ??Thomas protocol. ? PAGE 1 ? Signed Report ? (CONTINUED) ? + +---+ + ? !Stage ?!HR !BP (mmHg) ?? ! ? + +---+ + ? !Baseline supine ?!84 !111/82 (92) ! ? + +---+ + ? !Baseline standing ?!90 !130/80 (97) ! ? + +---+ + ? !Stage I; 1.7mph, 10degrees; 3 min ??!145!155/79 (104)! ? + +---+ + ? !Stage II; 2.5mph, 12degrees; 3 min !185!153/72 (99) ! ? + +---+ + ? !Stage III; 3.4mph, 14degrees; 3 min!187!156/76 (103)! ? + +---+ + ? !Peak stress ?!192! ! ? + +---+ + ? !Recovery; 1 min ?!168!137/84 (102)! ? + +---+ + ? !Recovery; 3 min ?!122!136/85 (102)! ? + +---+ + ? !Recovery; 6 min ?!108!141/86 (104)! ? + +---+ + ? * ? Stress results: ?? Maximal heart rate during stress was 192bpm (107% of ? maximal predicted heart rate). The maximal predicted heart rate was ? 180bpm. The rate-pressure product for the peak heart rate and blood ? pressure was 39949ly Hg/min. ? Stress ECG: ? GOOD EXERCISE JOHANNA- 10 METS( 9 MINUTES IN THOMAS PROTOCOL) ? MAX HR- 192 BPM ? NORMAL BP RESPONSE ? NO ECTOPY ? NO CHEST PAIN ? NO ISCHEMIC ECG CHANGES ? Myocardial perfusion: ?? Imaging information: gated. Moderate size, ? moderate intensity fixed anteroseptal defect. Dense breast shadow ? noted on raw imaging. Defect resolves with attenuation correction. ? Normal anterior wall motion. Defect c/w breast artifact. ? Ventricular Function (Wall Motion): ?? The calculated left ventricular ? ejection fraction after stress: 71%. ?? No left ventricular regional ? motion abnormality. ? Study data: ??Kian Farah MD supervised and was readily available ? during the procedure. This study was interpreted by [facility]. ? Study status: Routine. ? Consent: ??The risks, benefits, and alternatives to the procedure were ? explained to the patient and informed consent was obtained. ? Procedure: ??Initial setup. A baseline ECG was recorded. Surface ECG ? leads and manual cuff blood pressure measurements were monitored. ? Heart sounds: Normal. ? Lung sounds: Normal. ? PAGE 2 ? Signed Report ? (CONTINUED) ? Treadmill exercise testing was performed using the Thomas protocol. The ? patient exercised for 9 min. ? Study completion: ??All catheters inserted during the procedure were ? removed. The patient tolerated the procedure well and was discharged ? from the lab. ? Discharge: ??The patient left the laboratory in stable condition. ? Birthdate: ??Patient birthdate: 1975. ??Sex: ? Gender: female. Study date: ??Study date: 25-Oct-2015. ? Electronically signed by ? Kian Farah MD ? 10/25/2015 13:27 ?Reported By: KIAN FARAH M.D. ? CC: ? Transcribed Date/Time: 10/26/2015 (1048) ? Veterans' Coordinator: LANI ? Printed Date/Time: 02/10/2019 (0833) ? PAGE 3 ? Signed Report ? Procedure Note Kian Farah G - 07/06/2019 EXAM: NUCLEAR MEDICINE/NUCLEAR STRESS JUAN EX. D/ (1008) CLINICAL INFORMATION: ATYPICAL CHEST PAIN WITH EKG CHANGES *[facility]* *[facility]* [address] [place] [address] Myocardial Perfusion Imaging - SPECT Thomas protocol Date of study: 10/25/2015 *PATIENT PRESENTATION* Height: 162.6cm (64in ) Blood Pressure: Weight: 86.4kg (190lb ) BSA: 2.01m S 2 Ordering physician: Law Santiago Impressions: - Negative stress test. - Normal perfusion by Tc99m Sestamibi Imaging. Summary: 1. Myocardial perfusion imaging: Moderate size, moderate intensity fixed anteroseptal defect. Dense breast shadow noted on raw imaging. Defect resolves with attenuation correction. Normal anterior wall motion. Defect c/w breast artifact. 2. The calculated left ventricular ejection fraction after stress: 71%. No left ventricular regional motion abnormality. Indication: 786.50 Chest Pain, Unspecified. History: SEEN OVERNIGHT AT [facility] ON 10/05/15 FOR NONEXERTIONAL SHARP LEFT SIDED CHEST PAIN THAT RADIATED TO NECK AND BACK. DISCOMFORTWAS NOT RESPONSIVE TO NITRO. TREATED WITH ANTACIDS AND NAPROXEN.NEGATIVE CARDIAC WORKUP. SINCE THEN, OCC CHEST DISCOMFORT , BUT MUCH LESS INTENSE. NO PREVIOUS CARDIAC HISTORY. Risk factors: Family history of coronary artery disease.Hypertension. MEDS: AMILORIDE 5 MG, HCTZ 12.5 MG BID, KCL 10 MEQ BID, LISINOPRIL2.5 MG, NAPROXEN, IMITREX. ALLERGIES: PCN. Imaging Technique: Protocol: Thomas kerns. PAGE 1 Signed Report (CONTINUED) + +---+ + !Stage !HR !BP (mmHg) ! + +---+ + !Baseline supine !84 !111/82 (92) ! + +---+ + !Baseline standing !90 !130/80 (97) ! + +---+ + !Stage I; 1.7mph, 10degrees; 3 min !145!155/79 (104)! + +---+ + !Stage II; 2.5mph, 12degrees; 3 min !185!153/72 (99) ! + +---+ + !Stage III; 3.4mph, 14degrees; 3 min!187!156/76 (103)! + +---+ + !Peak stress !192! ! + +---+ + !Recovery; 1 min !168!137/84 (102)! + +---+ + !Recovery; 3 min !122!136/85 (102)! + +---+ + !Recovery; 6 min !108!141/86 (104)! + +---+ + * Stress results: Maximal heart rate during stress was 192bpm (107%of maximal predicted heart rate). The maximal predicted heart rate was 180bpm. The rate-pressure product for the peak heart rate and blood pressure was 95947xl Hg/min. Stress ECG: GOOD EXERCISE JOHANNA- 10 METS( 9 MINUTES IN THOMAS PROTOCOL) MAX HR- 192 BPM NORMAL BP RESPONSE NO ECTOPY NO CHEST PAIN NO ISCHEMIC ECG CHANGES Myocardial perfusion: Imaging information: gated. Moderate size, moderate intensity fixed anteroseptal defect. Dense breast shadow noted on raw imaging. Defect resolves with attenuation correction. Normal anterior wall motion. Defect c/w breast artifact. Ventricular Function (Wall Motion): The calculated leftventricular ejection fraction after stress: 71%. No left ventricular regional motion abnormality. Study data: Kian Farah MD supervised and was readily available during the procedure. This study was interpreted by [facility] Cardiology. Study status: Routine. Consent: The risks, benefits, and alternatives to the procedurewere explained to the patient and informed consent was obtained. Procedure: Initial setup. A baseline ECG was recorded. Surface ECG leads and manual cuff blood pressure measurements were monitored. Heart sounds: Normal. Lung sounds: Normal. PAGE 2 Signed Report (CONTINUED) Treadmill exercise testing was performed using the Thomas protocol.The patient exercised for 9 min. Study completion: All catheters inserted during the procedure were removed. The patient tolerated the procedure well and wasdischarged from the lab. Discharge: The patient left the laboratory in stable condition. Birthdate: Patient birthdate: 1975. Sex: Gender: female. Study date: Study date: 25-Oct-2015. Electronically signed by Kian Farah MD 10/25/2015 13:27 Reported By: KIAN FARAH M.D. CC: Transcribed Date/Time: 10/26/2015 (1048) Veterans' Coordinator: LANI Printed Date/Time: 02/10/2019 (0833) PAGE 3 Signed Report Law Santiago MD CARDIAC NM ORDERABLE S documented in this encounter Visit Diagnoses Not on filedocumented in this encounter Care Teams Ict Support Engineer Relationship Specialty Start Date End Date Jim Wei MD PCP - General 08/11/11 02/20/20 documented as of this encounter
--- OUTSIDE RECORDS SUMMARY | 2024-05-27 02:38 | XMS_ITS | Encounter Summary ---
Author Organization [facility] Address [address] [place] [address] Care Team Providers Care Barrel Leveler Name Role Phone Unavailable Primary Care Provider Unavailabl e Encounter Details Date Type Department Care Team (Late st Contact Info) Description 07/11/2002 18:49 EST Hospital Encounter [facility] [address], [place] [id number] Mary Garg MD [address] [facility] [place] [address] Discharge Disposition: Home or Self Care Social History Tobacco Use Types Packs/Day Years Used Date Smoking Tobacco: Never Assessed Sex and Gender Information Value Date Recorded Sex Assigned at Female 10/17/2020 14:51 EST Gender Identity Female 08/28/2020 15:56 EST Sexual Orientation Bisexual 10/17/2020 14 :51 EST documented as of this encounter Discharge Disposition Disposition Code Departure Means Destination Home or Self Care documented in this encounter Plan of Treatment Not on file documented as of this encounter Procedures Procedure Name Priority Date/Time Associated Diagnosis Comments CREATININE Routine 07/11/2002 20:04 EST HEMAGRAM & DIFF Routine 07/11/2002 20:04 EST FIBRINOGEN Routine 07/11/2002 20:04 EST URIC ACID Routine 07/11/2002 20:04 EST BUN Routine 07/11/2002 20:04 EST ALT Routine 07/11/2002 20:04 EST AST Routine 07/11/2002 20:04 EST ELECTROLYTES Routine 07/11/2002 20:04 EST URINE MICROSCOPIC Routine 07/11/2002 19: 58 EST URINALYSIS WITH MICROSCOPIC IF POSITIVE Routine 07/11/2002 19:58 EST documented in this encounter Results * URIC ACID (07/11/2002 20:04 EST) Uric Acid 4.0 2.2 - 7.7 mg/dl [facility] 07/11/2002 20:0 4 EST 07/11/2002 20:04 EST Mary Garg MD CHEMISTRY & BLOOD GA S ORDERABLES Performing Organization Address [facility] Co de Phone Number [facility] [address] [place] [address] * (ABNORMAL) ELECTROLYTES (07/11/2002 20:04 EST) Sodium 138 136 - 145 mEq/L [facility] Potassium 3.5 3.5 - 5.0 mEq/L [facility] Chloride 110 96 - 110 mEq/L [facility] CO2 23(L) 24 - 30 mEq/L [facility] 07/11/2002 20:0 4 EST 07/11/2002 20:04 EST Mary Garg MD CHEMISTRY & BLOOD GA S ORDERABLES Performing Organization Address City/[facility] Co de Phone Number [facility] [address] [place] [address] * (ABNORMAL) FIBRINOGEN (07/11/2002 20:04 EST) Fibrinogen 606(H) 180 - 433 mg/dl [facility] 07/11/2002 20:0 4 EST 07/11/2002 20:04 EST Mary Garg MD HEMATOLOGY & PF4 ORD ERABLES Performing Organization Address City/[facility]/ZIP Co de Phone Number [facility] [address] [place] [address] * (ABNORMAL) CREATININE (07/11/2002 20:04 EST) Creatinine 0.6(L) 0.7 - 1.5 mg/dl [facility] 07/11/2002 20:0 4 EST 07/11/2002 20:04 EST Mary Garg MD HISTORICAL LAB FOR S Q LOAD Performing Organization Address [facility] de Phone Number [facility] [address] [place] [address] * (ABNORMAL) HEMAGRAM & DIFF (07/11/2002 20:04 EST) WBC 7.97 4.0 - 12.4 K/cmm [facility] RBC 3.55(L) 3.86 - 5.04 M/cmm [facility] Hemoglobin 11.5(L) 11.6 - 15.2 gm/dl [facility] HCT 32.7(L) 34.9 - 44.4 % [facility] MCV 92 81 - 98 fl [facility] MCH 32.3 26.7 - 33.3 pg [facility] MCHC 35.0 32.1 - 35.9 gm/dl [facility] PLT 173 141 - 320 K/cmm [facility] RDW-CV 13.0 11.7 - 14.6 % [facility] % Neutrophils 73.5 45.5 - 79.7 % [facility] % Lymphocytes 14.8(L) 15.0 - 46.8 % [facility] % Monocytes 9.3 1.8 - 12.0 % [facility] % Eosinophils 2.3 0.6 - 6.9 % [facility] % Basophils 0.1(L) 0.2 - 1.4 % [facility] ABS Neutrophils 5.87 2.20 - 8.85 K/cmm [facility] ABS Lymphs 1.18 1.09 - 3.30 K/cmm [facility] ABS Monocytes 0.74 0.1 - 0.8 K/cmm [facility] ABS Eosinophils 0.18 0.03 - 0.61 K/cmm [facility] ABS Basophils 0.00(L) 0.01 - 0.11 K/cmm [facility] Type of Diff: Automated [facility] 07/11/2002 20:0 4 EST 07/11/2002 20:04 EST Mary Garg MD HISTORICAL LAB FOR S Q LOAD Performing Organization Address [facility] de Phone Number [facility] [address] [place] [address] * (ABNORMAL) BUN (07/11/2002 20:04 EST) BUN 3(L) 10 - 26 mg/dl [facility] 07/11/2002 20:0 4 EST 07/11/2002 20:04 EST Mary Garg MD CHEMISTRY & BLOOD GA S ORDERABLES Performing Organization Address [facility] de Phone Number [facility] [address] [place] [address] * AST (07/11/2002 20:04 EST) AST 21 8 - 50 U/L [facility] 07/11/2002 20:0 4 EST 07/11/2002 20:04 EST Mary Garg MD CHEMISTRY & BLOOD GA S ORDERABLES Performing Organization Address [facility] Co de Phone Number [facility] [address] [place] [address] * ALT (07/11/2002 20:04 EST) ALT 29 15 - 75 U/L [facility] 07/11/2002 20:0 4 EST 07/11/2002 20:04 EST Mary Garg MD CHEMISTRY & BLOOD GA S ORDERABLES Performing Organization Address [facility] de Phone Number [facility] [address] [place] [address] * URINE MICROSCOPIC (07/11/2002 19:58 EST) WBC, UA None seen 0 - 5 /HPF [facility] RBC, UA 5 to 10 0 - 5 /HPF [facility] Squam Epithel, UA None seen NS /HPF [facility] Renal Epithel, UA None seen NS /HPF [facility] Bacteria, UA None seen NS /HPF [facility] Crystals, UA None seen /HPF [facility] Hyaline Casts, UA None seen /LPF [facility] UA Comment Microscopic results are unreliable on urines unrefrig >2hrs or refrig >8hrs. [facility] 07/11/2002 19:5 8 EST 07/11/2002 19:58 EST Mary Garg MD URINALYSIS ORDERABLE S Performing Organization Address [facility] Co de Phone Number [facility] [address] [place] [address] * (ABNORMAL) URINALYSIS (07/11/2002 19:58 EST) Color, UA Yellow [facility] Clarity, UA Clear [facility] Glucose, UA Norm NORM [facility] Bilirubin, UA Neg NEG [facility] Ketones, UA Neg NEG [facility] Specific Wallace, Urine <1.005(L) 1.005 - 1.02 [facility] Blood, UA Mod(A) NEG [facility] pH, UA 7.0 5.0 - 9.0 [facility] Protein, UA Neg NEG [facility] Urobilinogen, UA Norm NORM mg/dL [facility] Nitrite, UA Neg NEG [facility] Leuk Esterase Neg NEG [facility] 07/11/2002 19:5 8 EST 07/11/2002 19:58 EST Mary Garg MD URINALYSIS ORDERABLE S Performing Organization Address City/State/[facility] Co de Phone Number [facility] [address] [place] [address] documented in this encounter Visit Diagnoses Not on filedocumented in this encounter
--- OUTSIDE RECORDS SUMMARY | 2024-05-27 02:38 | XMS_ITS | Encounter Summary ---
Author Organization [facility] Address [address] [place] [address] Care Team Providers Care Monotype Machinist Name Role Phone Minh Penaloza MD Primary Care Provider [phone] Reason for Visit * Reason Comments Shoulder Pain Right Encounter Details Date Type Department Care Team (Latest Contact Info) Description 01/30/2011 15:00 EDT Office Visit [facility] Rehabilitation Therapy [address] [address] Sai Jimenez MD [address] [place] [phone] Carpal tunnel syndrome; Bursitis, subacromial/subdelto id Discharge Disposition: Auto Discharge Social History Tobacco Use Types Packs/Day Years Used Date Smoking Tobacco: Never Assessed Sex and Gender Information Value Date Recorded Sex Assigned at Female 10/17/2020 14:51 EST Gender Identity Female 08/28/2020 15:56 EST Sexual Orientation Bisexual 10/17/2020 14 :51 EST documented as of this encounter Discharge Disposition Disposition Code Departure Means Destination Auto Discharge documented in this encounter Progress Notes * Sai Jimenez MD - 01/30/2011 1537 EDT This office note has been dictated. 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 She states on a couple of occasions, she felt pain inthe shoulder, at one point felt a pop occur in her right shoulder. She saw a Dr Broderick for evaluation and treatment. An MRI was performed and I have the verbal report of the MRI. I did not have the actual MRI available for my review. She eventually was referred to Dr Gonzalez and Zoie Appiah 01/02/2011. That evaluation is reviewed, and the patient is here today for my examination and electrodiagnostic testing. For past medical history, problem list and medication list, I refer to her [facility] intake. FAMILY HISTORY: Noncontributory. REVIEW OF SYSTEMS: Please see intake format. This is reviewed with the patient and signed. OBJECTIVE: The patient is a pleasant young woman who is fully cooperative. She is oriented x3. There is no evidence of Génesis's syndrome. She has painful arc of range of motion of the right upper extremity. The biceps, triceps, brachioradialis reflexes are intact. Strength testing shows some essentially give-way type of weakness throughout the arm. There is no scapular winging. Cervical range of motion is slightly painful primarily on the right side of her neck with right lateral flexion, right rotation. She has a negative Spurling. She has a negative Adson, Harvey, and Liliana maneuver. There is tenderness throughout the subdeltoid area. She has quite focal tenderness of her subscapularis. She has a negative hyperflexion maneuver of the elbow. She has a slightly positive carpal compression test at 20 to 30 seconds. No atrophy is noted. In order to investigate the status of her proximal and peripheral nerves, the plan is to do comprehensive electrodiagnostics. NERVE CONDUCTION STUDY: Nerve Distal Latency Evoked Nerve Conduction Comments (NI<3.6) Response Velocity Amplitude Right median motor 4.7 7.5 mV F wave 34.2 msec Right median sensory 4.3 54 mcV Right radial sensory 2.9 41 mcV Right radial motor 2.4 3.7 mV 67 m/s, no change across forearm Right ulnar motor 3.6 7.8 mV 65 m/s, no change across elbow Right ulnar F 31.4 Right cervical-8 stimulation 13.6 msec Proximal NCV greater than 70 m/s Right ulnar sensory 3.4 msec 75 mcV EMG REPORT: A monopolar exploring electrode was used with standard technique. Muscles examined included the right cervical paraspinals, supraspinatus, infraspinatus, trapezius, rhomboid, deltoid, serratus anterior, teres major, biceps, triceps, brachioradialis, pronator teres, flexor carpi ulnaris,extensor indicis proprius, extensor pollicis brevis, abductor pollicis brevis, opponens pollicis, first dorsal interosseous, abductor digiti quinti. FINDINGS: There was trace to 1+ increased insertional activity in the abductor pollicis brevis and opponens pollicis only. All other muscles tested normally. IMPRESSION: This is an abnormal study. 1. The patient has mild to moderate right carpal tunnel syndrome. My impression is that this only accounts for her hand numbness. 2. The ulnar nerve tested normally. 3. The radial nerve tested normally. 4. There was no evidence of thoracic outlet syndrome. 5. There was no evidence of cervical radiculopathy. 6. On her physical exam, she has relatively mild findings of bursitis and tendinitis about the shoulder. I had a discussion with the patient and her , who was present with her during the entire evaluation, regarding the anatomy and some of the standard treatment options and issues. All of her questions were answered. Electronically Signed by Sai Jimenez MD 02/04/2011 09:35 Sai Jimenez MD - Sai Jimenez MD P - HMM Job ID: SM Doc ID: [id number] Ext Doc ID: [id number] cc: Law Santiago MD documented in this encounter Miscellaneous Notes * Scanned Note-Null - Ocean Forwarder, Scan - 01/31/2011 1411 EDTAssociated Order(s): ORDERS - SCANNED documented in this encounter Plan of Treatment Not on file documented as of this encounter Procedures Procedure Name Priority Date/Time Associated Diagnosis Comments ORDERS - SCANNED 01/31/2011 14:1 1 EDT documented in this encounter Results * ORDERS - SCANNED (01/31/2011 14:11 EDT) 01/31/2011 14:1 1 EDT Narrative Procedure Note Ocean Forwarder, Scan - 01/31/2011 14:11 EDT Scan Ocean Forwarder ADMISSION ORDERABLES documented in this encounter Visit Diagnoses Diagnosis Carpal tunnel syndrome Bursitis, subacromial/subdeltoid Other specified disorders of rotator cuff syndrome of shoulder and allied disorders documented in this encounter Historical Medications * This list may reflect changes made after this encounter. Medication Sig Dispensed Refills Start Date End Date POTASSIUM CITRATE ORAL Take 10 mEq by mouth 3 times daily. hydrochlorothiazide (HYDRODIURIL) 25 mg tablet Take 25 mg by mouth 2 times daily. gabapentin (NEURONTIN) 300 mg capsule Take 300 mg by mouth at bedtime as needed. 01/30/2011 08/28/2020 oxycodone-acetaminophen (PERCOCET) 5-325 mg per tablet Take 1 Tab by mouth every 4 hours as needed. 08/28/2020 Multivitamins with Minerals Tab Take 1 Tab by mouth daily. 08/28/2020 amitriptyline (ELAVIL) 50 mg tablet Take 50 mg by mouth at bedtime. 01/30/2011 08/28/2020 added in this encounter Care Teams Monotype Machinist Relationship Specialty Start Date End Date Minh Penaloza MD [address] [place] [address] PCP - General 01/16/11 02/02/11 documented as of this encounter
--- OUTSIDE RECORDS SUMMARY | 2024-05-27 02:38 | XMS_ITS | Encounter Summary ---
Author Organization [facility] Address [address] [place] [address] Care Team Providers Care Front Line Leader Name Role Phone Jim Wei MD Primary Care Provider Un available Encounter Details Date Type Department Care Team (Latest Contact Info) Description 08/12/2011 17:37 EST - 08/12/2011 23:59 EST Hospital Encounter [facility] [address] [place] [address] Jim Wei MD Discharge Disposition: Home or Self Care Social [...] Code Departure Means Destination Home or Self Longterm documented in this encounter Plan of Treatment Not on file documented as of this encounter Visit Diagnoses Not on filedocumented in this encounter Care Teams Front Line Leader Relationship Specialty Start Date End Date Jim Wei MD PCP - General 08/11/11 02/20/20 documented as of this encounter
--- OUTSIDE RECORDS SUMMARY | 2024-05-27 02:38 | XMS_ITS | Continuity of Care Document ---
Author Organization [place] - RADHA SUTHERLAND , Main Office--[place] Address [address] [address] Assessment Encounter Date Assessment Date Assessment LastModified by Organization Details LastModified Time 03/29/2024 03/29/2024 Barbi is a 48 yo female with chonic nasal and sinus congestion and concerns of hip and back and hip pain. I spent 30 min in FTF consult with Barbi today. 5 minutes were spent after the encounter writing treatment plan, closing medical record for this visit. Total time allotted to visit was 35 min. [email or web address] Not available 03/29/2024 12:31:39 Plan of Treatment Reminders Order Date Submit Date Provider Last Modified By Organization Details Last Modified Time Details Appointments RETURN VISIT in Person 2023 10:45A M Not available Not available Not available Lab CMP, serum or plasma 2023 024 [email or web address] [facility] ([facility]), [address] [place] [address] [place], [address], 03/29/2024 12:05:55 Referral None recorded. Procedures None recorded. Surgeries None recorded. Imaging None recorded. Medication Orders loratadin e 10 mg tablet 2023 024 [facility], [address] [place], [address], 03/29/2024 11:49:30 Patient TargetsNo targets recorded. Patient Instructions Encounter Date Encounter Id Patient Instructions Last Modified By Organization Details Last Modified Time 03/29/2024 [id number] Dear Barbi, I was so glad to see you today. Here's the plan: For sinus congestion: Recommending loratadine 10 mg per day. Continued saline nasal rinses (daily) NAC 900 mg twice daily In addition to acupuncture and PT, let's try out minnie chi exercises: 5-minute minnie chi: [email or web address]://www.[email or web address].com/watch?v=[email or web address]&pp=ygUi [email or web address] [email or web address] ZcDakom3UboZ%3D%3 D Longer deannaomidPeter minnie chi: [email or web address]://www.[email or web address].com/watch?v=hI [email or web address]&j=650z& pp=ygUidGFpIGNoaS Hif6BpArNsbD0xZLW sKEN7GOUzDvgoc8Ol cA%3D%3D 15 minute version minnie chi: https://www.[email or web address].com/watch?v=ap [email or web address]&pp=ygUi [email or web address] [email or web address] PgXjder2HioF%3D%3 D [email or web address] Not available 03/29/2024 12:01:46 Reason for Referral Orthopedic Surgeon Referral for Pain of left hip joint MRI findings suspicious for left hip labral tear, please evaluate. Thank you for providing your expertise in evaluating Barbi. She has MRI findings suspicious for labral tear or partial tear of L. hip. S/p fall injury with progressive pain presentation. I have attached a copy of her MRI report here and a recent consult note. Reny Pineda ND Referring Physician: Reny Garg, Naturopathic Medicine, Encounter Date: 04/03/2022 Results Created Date Observation Date Name Description Value Unit Range Abnormal Flag Note LastModifiedBy Organization Detail LastModifiedTime 03/01/20 24 02/29/2024 XR, hip + pelvi s, unila teral , 2 or 3 view No observ ation record ed. [facility] (Radiology) [address] [facility] [place], [address], 03/01/2024 07:28:37 Result Notes None recorded. Procedures Surgical History Date Name Laterality Status Provider Name and Address Organization Details Recorded Time 08/31/19 09 extracorporeal shockwave lithotripsy of calculus of kidney completed Reny Garg ND [address] [place] [address], [address], [phone], [facility] 01/22/2021 10:18:25 08/31/18 99 section completed Reny Garg ND [address] [place] [address], [phone], [facility] 01/22/2021 10:16:37 Wrist arthroscopy/surger y completed Reny Garg [address], [phone], [facility] 01/22/2021 10:19:35 Carpal tunnel surgery completed Reny Garg ND [address] [place] [address], [phone], [facility] 01/22/2021 10:20:19 Imaging Results None recorded. Procedure Notes None recorded. Medical Equipment None Reported. Allergies Allergen ID Allergen Name Allergen Category Reaction Reaction Severity Criticality Documentation Date Start Date Code Code System Note Provider Name and Address Organization Details Recorded Time 301 Medicinal product containin g penicilli n and acting as antibacte rial agent (product) medicatio n hives moderate Not available 01/22/2021 94802 05 SNOMED Reny Garg [address], [address], [phone], [facility] 10:04:10 Medications Name Sig Start Date Stop Date Status Note LastModified by Organization Details LastModified Time Sinuplex by [employer] 2 tablets twice daily 2023 active Not Available Not Available Not Avai lable cyclobenzap rine 10 mg tablet TAKE ONE TABLET BY MOUTH THREE TIMES A DAY NEEDED 01/11 completed Not Available Not Available Not Available methocarbam ol 500 mg tablet TAKE ONE TABLET BY MOUTH FOUR TIMES A DAY 11/01 completed Not Available Not Available Not Available buspirone 5 mg tablet TAKE ONE TABLET BY MOUTH TWICE A DAY active Not Available Not Available No t Available Vitamin B-2 100 mg tablet TAKE FOUR TABLETS BY MOUTH EVERY DAY WITH MEALS 01/11 completed Not Available Not Available Not Available venlafaxine ER 75 mg capsule,ext ended release 24 hr TK 1 C PO QD. 11/01 completed Not Available Not Available Not Available gabapentin 600 mg tablet 06/03 completed Not Available Not Available Not Available nabumetone 750 mg tablet TAKE ONE TABLET BY MOUTH TWICE A DAY FOR 14 DAYS 01/11 completed Not Available Not Available Not Available clindamycin HCl 300 mg capsule TAKE 1 CAPSULE BY MOUTH THREE TIMES DAILY UNTIL FINISHED 04/28 completed Not Available Not Available Not Available tizanidine 4 mg tablet TAKE ONE TABLET BY MOUTH THREE TIMES A DAY NEEDED FOR MUSCLE PAIN/ SPASMS active Not Available Not Available No t Available valacyclovi r 1 gram tablet TAKE ONE TABLET BY MOUTH EVERY 12 HOURS 01/11 completed Not Available Not Available Not Available ondansetron HCl 4 mg tablet TAKE ONE TABLET BY MOUTH EVERY DAY NEEDED FOR NAUSEA 01/11 completed Not Available Not Available Not Available cellulose (bulk) powder 07/07 completed Not Available Not Available Not Available amlodipine 5 mg tablet TAKE ONE TABLET BY MOUTH EVERY DAY active Not Available Not Available No t Available tramadol 50 mg tablet TAKE ONE TABLET BY MOUTH THREE TIMES A DAY active Not Available Not Available No t Available amiloride 5 mg tablet TAKE ONE TABLET BY MOUTH TWICE A DAY active Not Available Not Available No t Available potassium chloride ER 20 mEq tablet,exte nded release(par t/cryst) TAKE 1 TABLET BY MOUTH NOW THEN 1 TABLET AT BEDTIME AND 1 TABLET IN THE MORNING 05/12 completed Not Available Not Available Not Available magnesium oxide 400 mg (241.3 mg magnesium) tablet TAKE ONE TABLET BY MOUTH TWICE A DAY active Not Available Not Available No t Available lorazepam 0.5 mg tablet TAKE 1 TABLET BY MOUTH ONCE A DAY NEEDED FOR EXTREME ANXIETY/P ANIC active Not Available Not Available No t Available potassium citrate ER 10 mEq (1,080 mg) tablet,exte nded release TAKE ONE TABLET BY MOUTH TWICE A DAY 06/16 completed Not Available Not Available Not Available pantoprazol e 40 mg tablet,diamante yed release TAKE ONE TABLET BY MOUTH EVERY DAY active Not Available Not Available No t Available venlafaxine 37.5 mg tablet TAKE 1 TABLET BY MOUTH DAILY 11/01 completed Not Available Not Available Not Available triamcinolo ne acetonide 55 mcg nasal spray aerosol 11/01 completed Not Available Not Available Not Available indomethaci n 25 mg capsule TAKE ONE CAPSULE BY MOUTH THREE TIMES A DAY 01/11 completed Not Available Not Available Not Available hydrochloro thiazide 12.5 mg capsule TAKE ONE CAPSULE BY MOUTH EVERY DAY active Not Available Not Available No t Available riboflavin (vitamin B2) (bulk) powder 01/11 completed Not Available Not Available Not Available gabapentin 300 mg capsule 06/03 completed Not Available Not Available Not Available bisacodyl 5 mg tablet,diamante yed release TAKE ONE TABLET BY MOUTH EVERY DAY active Not Available Not Available No t Available hydrochloro thiazide 25 mg tablet TAKE ONE TABLET BY MOUTH TWICE A DAY 09/29 completed Not Available Not Available Not Available nystatin 100,000 unit/gram topical powder APPLY TO AFFECTED AREA(S) TWO TO THREE TIMES DAILY 07/07 completed Not Available Not Available Not Available polyethylen e glycol 3350 17 gram/dose oral powder MIX 17 GRAMS IN LIQUID AND TAKE BY MOUTH ONCE DAILY 01/11 completed Not Available Not Available Not Available doxycycline hyclate 100 mg tablet TK 1 T PO BID 09/11 completed Not Available Not Available Not Available loratadine 10 mg tablet Take 1 tablet every day by oral route for 30 days. 2023 active Not Available Not Available Not Avai lable oxycodone 5 mg tablet TAKE ONE TABLET BY MOUTH EVERY 4 HOURS NEEDED FOR PAIN 11/01 completed Not Available Not Available Not Available Capsule #3 capsule 07/07 completed Not Available Not Available Not Available duloxetine 30 mg capsule,del ayed release TAKE 1 CAPSULE BY MOUTH DAILY 04/28 completed Not Available Not Available Not Available duloxetine 60 mg capsule,del ayed release TAKE ONE CAPSULE BY MOUTH EVERY DAY active Not Available Not Available No t Available pregabalin 50 mg capsule TAKE ONE CAPSULE BY MOUTH TWICE A DAY 11/01 completed Not Available Not Available Not Available pregabalin 75 mg capsule TAKE ONE CAPSULE BY MOUTH TWICE A DAY 01/11 completed Not Available Not Available Not Available pregabalin 150 mg capsule TAKE ONE CAPSULE BY MOUTH TWICE A DAY 11/01 completed Not Available Not Available Not Available naltrexone HCl (bulk) 100 % powder 04/28 completed Not Available Not Available Not Available silica gel, amorphous synthetic micronized (bulk) 100 % powder 01/11 completed Not Available Not Available Not Available cellulose (bulk) 100 % powder 07/07 completed Not Available Not Available Not Available potassium chloride ER 20 mEq tablet,exte nded release TAKE TWO TABLETS BY MOUTH EVERY DAY active Not Available Not Available No t Available Metamucil 3.4 gram/5.4 gram oral powder Take 1 tsp twice a day by oral route as directed for 30 days. 01/11 completed Not Available Not Available Not Available riboflavin (vitamin B2) 400 mg tablet Take 1 tablet every day by oral route with meals for 30 days. 01/11 completed Not Available Not Available Not Available Vitals None Recorded Social History None recorded. Functional Status None recorded. Mental Status None recorded. Family History Relationship Description Onset Age of this Age Resolved Age Notes LastModified by Organization Details LastModified Time Mother Osteoporosis [email or web address] Not avail able 01/22/2021 10:21:45 Mother Arthritis [email or web address] Not availabl e 01/22/2021 10:27:59 Mother Asthma Not available 0 01/22/2021 10:28:09 Mother Glaucoma [email or web address] Not available 02/28/2021 09:29:49 Mother Heart disease [email or web address] Not available 2020 10:29:17 Mother Cerebrovascu lar accident [email or web address] Not available 10:29:40 Father Alcoholism [email or web address] Not availab le 02/28/2021 09:29:49 Father Gastric ulcer [email or web address] Not available 2020 09:29:49 Maternal Grandmother Diabetes mellitus [email or web address] Not available 2020 10:30:10 Maternal Grandmother Malignant tumor of lung Not available 2020 10:30:21 Sister Gallstone [email or web address] Not availabl e 02/28/2021 09:29:49 Medical History Condition Response Allergies/Hayfever Y Eating Disorder Y Anemia Y Arthritis Y Kidney Stones Y High Cholesterol N Hypertension Y Gynecological HistoryNo gynecological history recorded. Obstetrics History GPAL:G 0 P 0 0 0 0 Past Encounters Encounter ID Performer Location Encounter Start Date Encounter Closed Date Diagnosis/Indication Diagnosis SNOMED-CT Code Diagnosis ICD10 Code [id number] Reny Garg ND Main Office--[facility] [address] [facility] [address] [place] [phone] 03/29/2024 11:26:16 03/29/2024 12:37:15 Seasonal allergic rhinitis 037779005 J30.2 J32.8 Serum pota ssium level below reference range 060525679 R79.0 Pain in lumbar spine 267 360117 M54.51 M25.552 M79.605 Health Concerns Section Related Observation LastModified by Organization Detai ls LastModified Time None Recorded Concern Status LastModified by Organization Details LastModified Time None Recorded Payers Encounter Date Sequence Insurance Name Policy Number Policy Emerson Covered Member ID Emerson Member ID Guarantor Name 03/29/2024 1 [facility] (MEDICAID) Barbi Ivey [id number] Barbi Ivey Notes Date Note Type Note Provider Name and Address Organization Details Recorded Time 03/29/2024 text/html HPI Notes: Misty moss and I met to review XR studies of the hip and lumbosacral spine. The patient reports experiencing pain in the L4 region due to disk space narrowing and degenerative changes from T12 to L5. She has an undigested pill in the bowel loops, raising concerns about absorption. The patient is scheduled to start physical therapy for hip pain on 04-12 at [facility], as no fractures or degenerative changes were found in the hips, suggesting an inflammatory issue. The patient reports poor sleep, waking up 2-3 times a night, sometimes needing to use the bathroom. She believes stress from clearing out her mother's house may be contributing to her sleep issues. The patient's sinuses have not improved, and she has tried Flonase but disliked it due to the smell. She is currently using nasal rinses with saline packets but finds them harsh. The patient reports goopy eyes as an additional allergy symptom. She has tried Sinuplex, but it did not provide relief this time. She is currently using NeilMed saline packets for nasal rinses, which provide minimal relief. She is open to trying N-acetylcysteine (NAC) at a higher dose for its mucolytic effect and [id number]-[id number] Claritin for allergy relief. The patient notes that her allergy symptoms have worsened in the past week due to pollen and blooming plants. She also reports feeling less depressed than a few months ago, attributing the improvement to increased support from her partner. The patient is scheduled for acupuncture and is interested in trying Minnie Chi for her spine and back issues. Reny Garg, ND [address] [facility], [address] [facility], [place], [address], [place] [facility] 03/29/2024 12:36:49 OBGyn Episode No OBEpisode recorded.
--- OUTSIDE RECORDS SUMMARY | 2024-05-27 02:38 | XMS_ITS | Encounter Summary ---
Author Organization [facility] Address [address] [place] [address] Care Team Providers Care Guillotine Operator Name Role Phone Jim Wei MD Primary Care Provider Un available Encounter Details Date Type Department Care Team (Late st Contact Info) Description 02/27/2015 Historical Results Only [facility] Radiology Results [address] [place], [place] [address] Naga Bhatti MD Social History Tobacco Use [...] Diagnosis Comments MA BREAST SCREENING MALACHI BILATERAL 02/27/2015 12:17 EDT documented in this encounter Results * MA BREAST SCREENING MALACHI BILATERAL (02/27/2015 12:17 EDT) Anatomical Region Laterality Modality Breast Bilateral Other 02/27/2015 12:1 7 EDT Narrative 02/28/2015 14:58 EDT ? EXAM: MAMMOGRAM/MAMMO BILATERAL SCREEN W ??EX. D/ (1217) ? CLINICAL INFORMATION: ? SCREENING MAMMO ? TECHNIQUE: ??Full field digital whole breast 2D and 3D CC and MLO views ? of both breasts were obtained. CAD technology was utilized. ? INDICATION: ??Initial screening ? FINDINGS: ??The fibroglandular patterns of the breasts are normal. ? There is no mammographic evidence of cancer. As there are no previous ? studies for comparison it would be advisable for the patient to ? have another mammogram in one year to be certain the breasts are ? stable. ??The breasts are of fatty density. ? FINAL ASSESSMENT: ??BILATERAL BREAST: ??Category 1 - Negative. Routine ?mammographic follow-up is recommended. ? These results will be communicated to your patient via a lay letter ? from Radiology. ??If any additional imaging is needed we will contact ? your patient directly. ? HIGHWAY MAINTENANCE CREW WORKER:kad ?Reported By: Bhupinder Handy MD ? CC: ? Transcribed Date/Time: 02/28/2015 (1458) ? Traveling Auditor: LANI ? Printed Date/Time: 02/07/2019 (8040) ? PAGE 1 ? Signed Report ? Procedure Note Bhupinder Handy MD - 07/05/2019 EXAM: MAMMOGRAM/MAMMO BILATERAL SCREEN W EX. D/ (1217) CLINICAL INFORMATION: SCREENING MAMMO TECHNIQUE: Full field digital whole breast 2D and 3D CC and MLOviews of both breasts were obtained. CAD technology was utilized. INDICATION: Initial screening FINDINGS: The fibroglandular patterns of the breasts are normal. There is no mammographic evidence of cancer. As there are no previous studies for comparison it would be advisable for the patient to have another mammogram in one year to be certain the breasts are stable. The breasts are of fatty density. FINAL ASSESSMENT: BILATERAL BREAST: Category 1 - Negative.Routine mammographic follow-up is recommended. These results will be communicated to your patient via a lay letter from Radiology. If any additional imaging is needed we willcontact your patient directly. HIGHWAY MAINTENANCE CREW WORKER:yue Reported By: Bhupinder Handy MD CC: Transcribed Date/Time: 02/28/2015 (1458) Traveling Auditor: LANI Printed Date/Time: 02/07/2019 (9040) PAGE 1 Signed Report Naga Bhatti MD [facility] MAMMOGRAPHY [facility] documented in this encounter Visit Diagnoses Not on filedocumented in this encounter Care Teams Guillotine Operator Relationship Specialty Start Date End Date Jim Wei MD PCP - General 08/11/11 02/20/20 documented as of this encounter
--- OUTSIDE RECORDS SUMMARY | 2024-05-27 02:38 | XMS_ITS | Encounter Summary ---
Author Organization [facility] Address [address] [place] [address] Care Team Providers Care Wirer Helper Name Role Phone Minh Penaloza MD Primary Care Provider [phone] Law Santiago MD Primary Care Provider [phone] Jim Wei MD Primary Care Provider Un available Encounter Details Date Type Department Care Team (Late st Contact Info) Description 10/14/2010 Historical Results Only [facility] Lab - Main [address] [address] Naga Bhatti MD Social History Tobacco Use [...] Priority Date/Time Associated Diagnosis Comments PAP TEST Routine 10/14/2010 documented in this encounter Results * PAP TEST (10/14/2010) 10/14/2010 10/14/2010 17: 36 EST Narrative [facility] - 10/17/2010 13:46 EST ----- ------- Name: BARBI IVEY Stephani ?: [birth year] ?Age/Sex: 43/F ?Unit#: [id number] ? Loc: AGO ? Status: REG POV ?? Reg Date: 10/14/10 ? Pt.Phone Number: ? ----- ------- Specimen: [id number] ?STATUS: SOUT ?Spec Date:10/14/10 ? Physician Copies: ?Naga Bhatti MD ? Tissues: ? Cervical/Endo Pap ?Jim Wei CPT: 82587 ?? Units: ??1 ----- ------- ? CYTOLOGY DIAGNOSIS SPECIMEN ADEQUACY: ?Satisfactory for evaluation. Transformation zone component ABSENT. GENERAL CATEGORIZATION: ?Negative for Intraepithelial Lesion or Malignancy DESCRIPTIVE DIAGNOSIS: ? Negative for Intraepithelial Lesion or Malignancy. RECOMMENDATIONS/COMMENTS: ?None. ----- ------- ?HPV DNA RESULTS ?? 10/14/10 UNK ??HPV DNA RESULT ??NEG ? Negative for HPV types 16, 18, 31, 33, 35, 39, 45, 51, 52, ? 56, 58, 59, 66, 68. ? Method: Cervista HPV HR (High Risk) DNA test. ----- ------- ORDER QUERIES: LMP: 09/24/10- ? N Post ? N ??PREVIOUS ATYPICAL: N BCP/HRT? N Rad Rx? N IUD? N ??PAP PLUS HPV? Y ??REFLEX TO HR-HPV IF ASCUS ?? REFLEX TO HPV 16/18 IF HPV POS/PAP NEG ?? HPV REGARDLESS?RFLX HPV IF LSIL ?? IF ASCUS DO HPV? N Signed Marcia Ospina CT(ASCP) 10/17/10 By the signature above, the attending physician certifies that he/she has personally conducted a gross and/or microscopic examination of the described specimens and rendered or confirmed the above diagnosis. Test Performed by [facility], [address] [place] [address] New Home Sales Consultant: Azalea Tanner MD PHD ----- ------- Naga Bhatti MD PATHOLOGY ORDERABLES [facility] documented in this encounter Visit Diagnoses Not on filedocumented in this encounter Care Teams Wirer Helper Relationship Specialty Start Date End Date Minh Penaloza MD [address] [place] [address] PCP - General 01/16/11 02/02/11 Law Santiago MD [address] [place] [address] PCP - General 02/03/11 08/10/11 Jim Wei MD PCP - General 08/11/11 02/20/20 documented as of this encounter
--- OUTSIDE RECORDS SUMMARY | 2024-05-27 02:38 | XMS_ITS | Encounter Summary ---
Author Organization [facility] Address [address] [place] [address] Care Team Providers Care Security Trainer Name Role Phone Law Santiago MD Primary Care Provider Encounter Details Date Type Department Care Team (Late st Contact Info) Description 08/05/2011 Results Only Imaging [facility] [phone] Jim Wei MD Social History Tobacco Use Types Packs/Day [...] on filedocumented in this encounter Care Teams Security Trainer Relationship Specialty Start Date End Date Law Santiago MD [address] [place] [address] PCP - General 02/03/11 08/10/11 documented as of this encounter
--- OUTSIDE RECORDS SUMMARY | 2024-05-27 02:38 | XMS_ITS | Encounter Summary ---
Author Organization [facility] Address [address] [place] [address] Care Team Providers Care Account Manager Education Name Role Phone Jim Wei MD Primary Care Provider Un available Encounter Details Date Type Department Care Team (Latest Contact Info) Description 02/27/2015 9:23 EDT - 02/27/2015 23:59 EDT Hospital Encounter [address] [address] Unknown, Provider, Discharge Disposition: Home or Self [...] Code Departure Means Destination Home or Self [facility] documented in this encounter Plan of Treatment Not on file documented as of this encounter Visit Diagnoses Not on filedocumented in this encounter Care Teams Account Manager Education Relationship Specialty Start Date End Date Jim Wei MD PCP - General 08/11/11 02/20/20 documented as of this encounter
--- OUTSIDE RECORDS SUMMARY | 2024-05-27 02:38 | XMS_ITS | Encounter Summary ---
Author Organization [facility] Address [address] [place] [address] Care Team Providers Care Name Plate Stamper Name Role Phone Jim Wei MD Primary Care Provider Un available Encounter Details Date Type Department Care Team (Late st Contact Info) Description 10/25/2013 Historical Results Only [facility] [place] - Main [address] [id number] Naga Bhatti MD Social History Tobacco Use [...] Date/Time Associated Diagnosis Comments PAP TEST Routine 10/25/2013 17:28 EST documented in this encounter Results * PAP TEST (10/25/2013 17:28 EST) 10/25/2013 17:2 8 EST 10/25/2013 17:28 EST Narrative [facility] - 10/28/2013 15:35 EST ----- ------- Name: BARBI IVEY Stephani ?: [birth year] ?Age/Sex: 43/F ?Unit#: [id number] ? Loc: AGO ? Status: REG POV ?? Reg Date: 10/25/13 ? Pt.Phone Number: ? ----- ------- Specimen: [id number] ?STATUS: SOUT ?Spec Date:10/25/13 ? Physician Copies: ?Naga Bhatti MD ? Tissues: ? Cervical/Endo Pap ?Jim Wei CPT: 85965 ?? Units: ??1 ----- ------- ? CYTOLOGY DIAGNOSIS SPECIMEN ADEQUACY: ?Satisfactory for evaluation. Transformation zone component present. GENERAL CATEGORIZATION: ?Negative for Intraepithelial Lesion or Malignancy DESCRIPTIVE DIAGNOSIS: ? Negative for Intraepithelial Lesion or Malignancy. ----- ------- ?HPV DNA RESULTS ?? 10/25/13 1118 HPV DNA RESULT ??NEG ? Negative for HPV types 16, 18, 31, 33, 35, 39, 45, 51, 52, ? 56, 58, 59, 66, 68. ? Method: Cervista HPV HR (High Risk) DNA test. ----- ------- ORDER QUERIES: LMP: 10/24/13- ? N Post ? N ??PREVIOUS ATYPICAL: N BCP/HRT? N Rad Rx? N IUD? N ??PAP PLUS HPV? Y ??REFLEX TO HR-HPV IF ASCUS N REFLEX TO HPV 16/18 IF HPV POS/PAP NEG N HPV REGARDLESS? Y ??RFLX HPV IF LSIL ?? Signed Nadia Hartley CT(ASCP) 10/28/13 By the signature above, the attending physician certifies that he/she has personally conducted a gross and/or microscopic examination of the described specimens and rendered or confirmed the above diagnosis. Test Performed by [facility], [address] [place] [address] Wire Wrapping Machine Operator: Azalea Tanner MD PHD ----- ------- Naga Bhatti MD PATHOLOGY ORDERABLES [facility] documented in this encounter Visit Diagnoses Not on filedocumented in this encounter Care Teams Name Plate Stamper Relationship Specialty Start Date End Date Jim Wei MD PCP - General 08/11/11 02/20/20 documented as of this encounter
--- OUTSIDE RECORDS SUMMARY | 2024-05-27 02:38 | XMS_ITS | Encounter Summary ---
Author Organization [facility] Address [address] [place] [address] Care Team Providers Care Tax Clerk Name Role Phone Law Santiago MD Primary Care Provider [phone] Encounter Details Date Type Department Care Team (Late st Contact Info) Description 07/21/2011 Results Only Imaging [facility] [phone] Jim Wei MD Social History Tobacco Use [...] Procedure Name Priority Date/Time Associated Diagnosis Comments MR EXTREMITY SHOULDER WO CONTRAST 08/12/2011 18:31 EST documented in this encounter Results * MR EXTREMITY SHOULDER WO CONTRAST (08/12/2011 18:31 EST) Anatomical Region Laterality Modality Other 08/12/2011 18:3 1 EST 08/18/2011 9:59 EST Narrative 08/18/2011 9:59 EST MR EXTREMITY RIGHT SHOULDER W/O ??Aug 12, 2011 06:31:00 PM Signs and Symptoms/Comments: ??Old injury. prior films at [facility]. continued pain and decreased ROM Comparison: None available Technique: Axial and coronal proton density weighted, sagittal T1 weighted and axial, sagittal and coronal T2 weighted fat-sat MR images of the right shoulder were obtained. Findings: The muscles and tendons of the rotator cuff are normal. A small blood vessel with perivascular fat is seen within the belly of the infraspinatus muscle, a normal variant. The tendon of the long head of the biceps is normal in appearance and position. The glenoid labrum is normal. The central portion of the glenoid lacks articular cartilage and contains a small bony protuberance. This is the normal bare area of the glenoid with a normal variant, the so-called tubercle of Assaki. Slightly more inferiorly there is subtle hyperintense signal within the articular cartilage of the glenoid (axial image # 18, coronal image # 12). This could relate to partial volume averaging or to early chondrosis. The acromioclavicular joint is normal. Bone marrow signal is unremarkable. Impression: 1. Possible early chondrosis at the glenoid articular surface although artifact from partial volume averaging is likely. Otherwise unremarkable MRI of the right shoulder. 2. No rotator cuff tear seen. 3. No labral tear seen. I have personally reviewed the images and the above interpretation and agree with the findings. Procedure Note Holland Walters MD - 08/18/2011 MR EXTREMITY RIGHT SHOULDER W/O Aug 12, 2011 06:31:00 PM Signs and Symptoms/Comments: Old injury. prior films at [facility]. continued pain and decreased ROM Comparison: None available Technique: Axial and coronal proton density weighted, sagittal T1 weighted and axial, sagittal and coronal T2 weighted fat-sat MR images of the right shoulder were obtained. Findings: The muscles and tendons of the rotator cuff are normal. A small blood vessel with perivascular fat is seen within the belly of the infraspinatus muscle, a normal variant. The tendon of the long head of the biceps is normal in appearance and position. The glenoid labrum is normal. The central portion of the glenoid lacks articular cartilage and contains a small bony protuberance. This is the normal bare area of the glenoid with a normal variant, the so-called tubercle of Assaki. Slightly more inferiorly there is subtle hyperintense signal within the articular cartilage of the glenoid (axial image # 18, coronal image # 12). This could relate to partial volume averaging or to early chondrosis. The acromioclavicular joint is normal. Bone marrow signal is unremarkable. Impression: 1. Possible early chondrosis at the glenoid articular surface although artifact from partial volume averaging is likely. Otherwise unremarkable MRI of the right shoulder. 2. No rotator cuff tear seen. 3. No labral tear seen. I have personally reviewed the images and the above interpretation and agree with the findings. Jim Wei MD IMG MRI ORDERABLE S documented in this encounter Visit Diagnoses Not on filedocumented in this encounter Care Teams Tax Clerk Relationship Specialty Start Date End Date Law Santiago MD [address] [address] PCP - General 02/03/11 08/10/11 documented as of this encounter
--- OUTSIDE RECORDS SUMMARY | 2024-05-27 02:38 | XMS_ITS | Encounter Summary ---
Author Organization [facility] Address [address] [place] [address] Care Team Providers Care Wire Coater Name Role Phone Minh Penaloza MD Primary Care Provider [phone] Law Santiago MD Primary Care Provider [phone] Jim Wei MD Primary Care Provider Un available Encounter Details Date Type Department Care Team (Late st Contact Info) Description 10/16/2009 Historical Results Only [facility] [place] [facility] [place] [address] [address] Naga Bhatti MD Social History Tobacco Use [...] Date/Time Associated Diagnosis Comments PAP TEST Routine 10/16/2009 documented in this encounter Results * PAP TEST (10/16/2009) 10/16/2009 10/17/2009 10: 33 EST Narrative [facility] - 10/18/2009 16:18 EST ----- ------- Name: BARIB IVEY Stephani ?: 73 ?Age/Sex: 43/F ?Unit#: [id number] ? Loc: AGO ? Status: REG POV ?? Reg Date: 10/11/09 ? Pt.Phone Number: ? ----- ------- Specimen: [id number] ?STATUS: SOUT ?Spec Date:10/16/09 ? Physician Copies: ?Naga Bhatti MD ? Tissues: ? Cervical/Endo Pap ? CPT: 54439 ?? Units: ??1 ----- ------- ? CYTOLOGY DIAGNOSIS SPECIMEN ADEQUACY: ?Satisfactory for evaluation. Transformation zone component ABSENT. GENERAL CATEGORIZATION: ?Negative for Intraepithelial Lesion or Malignancy DESCRIPTIVE DIAGNOSIS: ?? Shift in sarita present suggestive of bacterial vaginosis. RECOMMENDATIONS/COMMENTS: ?None. ----- ------- ORDER QUERIES: LMP: 09/19/09- ? N Post ? N ??PREVIOUS ATYPICAL: N BCP/HRT? N Rad Rx? N IUD? N ??PAP PLUS HPV? N ??REFLEX TO HR-HPV IF ASCUS ?? REFLEX TO HPV 16/18 IF HPV POS/PAP NEG ?? HPV REGARDLESS?RFLX HPV IF LSIL ?? IF ASCUS DO HPV? N Signed Fracisco Jeffries CT(ASCP) 10/18/09 ? By the signature above, the attending physician certifies that he/she has personally conducted a gross and/or microscopic examination of the described specimens and rendered or confirmed the above diagnosis. Test Performed by [facility], [address] [facility] [address] Stove Mounter: Azalea Tanner MD PHD ----- ------- Naga Bhatti MD PATHOLOGY ORDERABLES [facility] documented in this encounter Visit Diagnoses Not on filedocumented in this encounter Care Teams Wire Coater Relationship Specialty Start Date End Date Minh Penaloza MD [address] [place] [address] PCP - General 01/16/11 02/02/11 Law Santiago MD [address] [place] [address] PCP - General 02/03/11 08/10/11 Jim Wei MD PCP - General 08/11/11 02/20/20 documented as of this encounter
--- OUTSIDE RECORDS SUMMARY | 2024-05-27 02:38 | XMS_ITS | Encounter Summary ---
Author Organization [facility] Address [address] [place] [address] Care Team Providers Care Electric Freight Car Operator Name Role Phone Law Santiago MD Primary Care Provider [phone] Encounter Details Date Type Department Care Team (Late st Contact Info) Description 07/21/[address] [facility] [phone] Jim Wei MD Social History Tobacco Use [...] on filedocumented in this encounter Care Teams Electric Freight Car Operator Relationship Specialty Start Date End Date Law Santiago MD [address] [place] [address] PCP - General 02/03/11 08/10/11 documented as of this encounter
--- OUTSIDE RECORDS SUMMARY | 2024-05-27 02:38 | XMS_ITS | Encounter Summary ---
Author Organization [facility] Address [address] [place] [address] Care Team Providers Care Surgery Technician Name Role Phone Unavailable Primary Care Provider Unavailabl e Encounter Details Date Type Department Care Team (Latest Contact Info) Description 04/06/2002 11:20 EDT - 04/06/2002 11:59 EDT Hospital Encounter [facility] - Other [address] [place] [address] Benjamin Henson MD [address] [place] [address] Unknown, Provider, Discharge Disposition: Auto Discharge Social History Tobacco Use Types Packs/Day Years Used Date Smoking Tobacco: Never Assessed Sex and Gender Information Value Date Recorded Sex Assigned at Female 10/17/2020 14:51 EST Gender Identity Female 08/28/2020 15:56 EST Sexual Orientation Bisexual 10/17/2020 14 :51 EST documented as of this encounter Discharge Disposition Disposition Code Departure Means Destination Auto Discharge documented in this encounter Plan of Treatment Not on file documented as of this encounter Procedures Procedure Name Priority Date/Time Associated Diagnosis Comments RAD ULTRASOUND Routine 08/12/2002 12:45 EST documented in this encounter Results * RAD ULTRASOUND (08/12/2002 12:45 EST) Anatomical Region Laterality Modality Other 08/12/2002 12:4 5 EST Narrative 05/28/2009 5:48 EDT amnio for abnormal quad Please refer to the separate [facility] report. Procedure Note Theron Kiser MD - 05/28/2009 amnio for abnormal quad Please refer to the separate [facility] report. Mary Garg MD IMG US ORDERABLES documented in this encounter Visit Diagnoses Not on filedocumented in this encounter
[2024-05-27 17:18] LABS: Anion Gap 7.6 mmol/L (3-11); BUN 10 mg/dL (7-18); CO2 30.4 mmol/L (21.0-32.0); CREATININE 0.8 mg/dL (0.55-1.02); Calcium 9.5 mg/dL (8.5-10.1); Chloride 102 mmol/L (98-107); Estimated GFR 90.27 (mL/min/1.73m2); Glucose 52 mg/dL (74-106); Sodium 140 mmol/L (136-145)
[2024-05-27 17:53] LABS: Potassium 2.9 mmol/L (3.5-5.1)
== END 2024-05-27 02:27 | disposition home or self-care (01) ==
LOC: LBO 02:26
PROVIDERS: PCP Physician Assistant; Visit Provider Physician Assistant
DX: E87.6 Hypokalemia (principal)
CPT/HCPCS: 36415; 80048

== ENCOUNTER 2024-06-02 16:38 | Outpatient (REF) | payer MEDICAID, SELFPAY ==
--- OUTSIDE RECORDS SUMMARY | 2024-06-02 16:43 | XMS_ITS | Encounter Summary ---
Author Organization [facility] Address [facility] [place] [address] Care Team Providers Care Rn Document Improvement Name Role Phone Arlen Ryan ND Primary Care Provider + Encounter Details Date Type Department Care Team (Late st Contact Info) Description 03/13/2020 1:30 PM EDT [place] [address] La Real MD [facility] [place] [address] PATIENT NOT SEEN Social History Tobacco Use [...] SEEN documented in this encounter Care Teams Rn Document Improvement Relationship Specialty Start Date End Date Arlen Ryan ND PCP - General Naturopathic Medicine 04/09/16 [facility] [address] [address] [place] [address] Load Haul Dump OperatorPsychiatric Nurse Practitioner Medicine 03/26/11 documented as of this encounter
--- OUTSIDE RECORDS SUMMARY | 2024-06-02 16:43 | XMS_ITS | Encounter Summary ---
Author Organization [facility] Address [facility] [place] [place] [address] Care Team Providers Care Social Work Case Manager Name Role Phone ShelbyAlexArlen FIORELLA Primary Care Provider + Encounter Details Date Type Department Care Team (Late st Contact Info) Description 02/22/2019 [place] [phone] Emeka Hernandez Jr., MD [facility] [place] [place] [address] Social History Tobacco Use Types Packs/Day Years [...] schedule PT for 1 year [facility]heck [facility] withDr Hernandez with [facility] T/P. Looking at 05/10/19. documented in this encounter Plan of Treatment Not on file documented as of this encounter Visit Diagnoses Not on filedocumented in this encounter Care Teams Social Work Case Manager Relationship Specialty Start Date End Date Wawrzyniak, Arlen, ND PCP - General Naturopathic Medicine 04/09/16 [facility] [address] [address] [place] [address] Store Clerk CashierMosaic Floor Layer Medicine 03/26/11 documented as of this encounter
--- OUTSIDE RECORDS SUMMARY | 2024-06-02 16:43 | XMS_ITS | Encounter Summary ---
Author Organization [facility] Address [facility] [address] [place] [address] Care Team Providers Care Outpatient Psychiatrist Name Role Phone Arlen Ryan ND Primary Care Provider + Reason for Visit * Reason Comments Nephrolithiasis Encounter Details Date Type Department Care Team (Late st Contact Info) Description 12/08/2017 10:30 AM EDT [place] [address] Emeka Hernandez Jr., MD [facility] [place] [address] Nephrolithiasis Social History Tobacco Use Types Packs/Day [...] -Ovaltine -lemonade/limeade -tea, brewed (made without peel) -p[place] juice -milk (skim, 2%, whole) -orange soda [...] -kiwi -honeydew -plums -lemon peel -mangoes -prunes -p[place] peel -nectarines -orange peel -papaya -red raspberries [...] sauce -sorrel -spinach -summer squash -sweet potatoes -Guyanese chard -tomato soup -watercress -yams Condiments Low [...] documented in this encounter Care Teams Outpatient Psychiatrist Relationship Specialty Start Date End Date Arlen Ryan ND PCP - General Naturopathic Medicine 04/09/16 [facility] [address] [address] [place] [address] Laundrette OwnerGroup Fitness Manager Medicine 03/26/11 documented as of this encounter
--- OUTSIDE RECORDS SUMMARY | 2024-06-02 16:43 | XMS_ITS | Clinical Summary ---
Author Organization [facility] Address [facility] [place] [address] Care Team Providers Care Rn Rehabilitation Name Role Phone SheriblakeAlex mascorrohanie FIORELLA Primary [...] Problem Noted Date Diagnosed Date Resolved Date custodial current use of opiate analgesic 09/05/2011 10/17/2011 [...] history exists Medical Devices Implanted Type Area Abrasives Sales Representative Device Identifier Shelf Expiration Date Model / Serial / Lot Stent,Contour -[id number] cm ([id number]) - [id number] Implanted:Qty : 1 on 02/01/2015 by Justin Grayson MD at [facility] IMPLANTS Left: Ureter DO NOT USE [employer] - [id number] 10/28/2017 180-156 / / [id number] Explanted Type Area Abrasives Sales Representative Device Identifier Shelf Expiration Date Model / Serial / Lot Stent,Contour -[id number] cm ([id number]) - [id number] Implanted:Qty : 1 on 01/11/2015 by Emeka Hernandez Jr., MD at [facility] Explanted:Qty : 1 on 02/01/2015 by Justin Grayson MD at [facility] IMPLANTS Left: Ureter DO NOT USE [employer] - [id number] 05/14/2017 180-157 / / [id number] Procedures Procedure Name Priority Date/Time Associated Diagnosis Comments HC VENIPUNCTURE STAT 03/13/2020 1:48 PM EDT Nephrolithiasis from Last 3 Months or Most Recently Relevant to Health Maintenance Results * (ABNORMAL) Basic Metabolic Panel (non-fasting) (03/13/2020 1:48 PM EDT) Glucose 91 65 - 199 mg/dL [facility] Comment:Diabetes: >=200 mg/d L plus symptoms Blood Urea Nitrogen 14 8 - 18 mg/dL [facility] Creatinine 0.75 0.70 - 1.20 mg/dL [facility] Sodium 142 135 - 145 mmol/L [facility] Potassium 3.0(Criti dalia) 3.5 - 5.0 mmol/L [facility] Comment: Called by: OCTAVIO, Read back by: janina vazquez, Date/Time:03/13/20 14:41. Please note: ??Patients with WBC >100,000 may have falsely elevated Potassium levels. ??For accurate Potassium quantification in these patients send serum separator tube (gold top) for subsequent determinations. ??Contact the Clinical Chemistry Laboratory if there are any questions. Chloride 102 98 - 107 mmol/L [facility] Carbon Dioxide 31 22 - 31 mmol/L [facility] Anion Gap 9 5 - 15 mmol/L [facility] Calcium 9.5 8.5 - 10.5 mg/dL [facility] Est Glomerular Filtration Rate 96 >=60 mL/min/1. 73 m?? [facility] Comment: The eGFR was calculated using the CKD-EPI equation. As with all creatinine based estimates of kidney function, eGFR values calculated with the CKD-EPI equation are not accurate in patients with acute kidney failure, extremes of body mass or the acutely ill. http://[employer] eGFR 112 >=60 mL/min/1. 73 m?? [facility] Comment: The eGFR was calculated using the CKD-EPI equation. As with all creatinine based estimates of kidney function, eGFR values calculated with the CKD-EPI equation are not accurate in patients with acute kidney failure, extremes of body mass or the acutely ill. http://[employer] Blood specimen (specimen) 03/13/2020 1:48 PM EDT 03/13/2020 1:56 PM EDT Narrative Resulting Agency Comment Spec In Lab Emeka Hernandez Jr., MD CHEMISTRY ORDERABL ES [facility] [place] [place] [address] from Last 3 Months or Most Recently Relevant to Health Maintenance Advance Directives * Full Code (Latest Code Status on File) Date Activated Date Inactivated Comments 02/01/2015 10:42 AM 02/02/2015 7:22 PM Question Answer Comments Does patient have decision m aking capacity? Yes, order is based on Patient wishes. Care Teams Rn Rehabilitation Relationship Specialty Start Date End Date Arlen Ryan ND PCP - General Naturopathic Medicine 04/09/16 [facility] [address] [address] [place] [address] District Customs DirectorDirector Of Casino Marketing Medicine 03/26/11
--- OUTSIDE RECORDS SUMMARY | 2024-06-02 16:43 | XMS_ITS | Encounter Summary ---
Author Organization [facility] Address [facility] [address] [place] [address] Care Team Providers Care Felt Cutter Name Role Phone Arlen Ryan ND Primary Care Provider + Encounter Details Date Type Department Care Team (Latest Contact Info) Description 12/08/2017 8:19 AM EDT - 12/08/2017 11:59 PM EDT Hospital En[place] [address] Sowmya Hernandez Jr., MD [facility] [place] [address] Nephrolithiasis Discharge Disposition: Home Social History Tobacco [...] 09:18 am) PATIENT INFO: ID #: ? [id number] ?: ??[birth year] (42 yrs) Name: ? BARBI IVEY ?Visit Date: 12/08/2017 08:56 am PERFORMED BY: Performed By: ? Jennie Celaya RDMS Attending: ?Kashif MILNER, Laurie Cooper Referred By: ?SOWMYA HERNANDEZ JR Location: ? [place] SERVICE(S) PROVIDED: ??URETRO - Retroperitoneal Complete - [id number] ? [id number] INDICATIONS: ??? stones COMPARISON: US: 02/11/17 RIGHT [...] 12/08/2017 09:18 am) PATIENT INFO: ID #: [id number] : [birth year] (42 yrs) Name: BARBI IVEY Visit Date: 12/08/2017 08:56 am PERFORMED BY: Performed By: Jennie Celaya RDMS Attending: Laurie Rowland MD Referred By: SOWMYA HERNANDEZ JR Location: [place] SERVICE(S) PROVIDED: URETRO - Retroperitoneal Complete - [id number] INDICATIONS: ? stones COMPARISON: US: 02/11/17 RIGHT [...] kidney documented in this encounter Care Teams Felt Cutter Relationship Specialty Start Date End Date Arlen Ryan ND PCP - General Naturopathic Medicine 04/09/16 [facility] [address] [address] [place] [address] Life Skills Coordinator VolunteerHydrological Technical Officer Medicine 03/26/11 documented as of this encounter
--- OUTSIDE RECORDS SUMMARY | 2024-06-02 16:43 | XMS_ITS | Encounter Summary ---
Author Organization [facility] Address [facility] [address] [place] [address] Care Team Providers Care Risk Management Intern Name Role Phone Arlen Ryan ND Primary Care Provider + Encounter Details Date Type Department Care Team (Late st Contact Info) Description 07/27/2017 [place] [phone] Emeka Hernandez Jr., MD [facility] [place] [address] Social History Tobacco Use Types Packs/Day Years [...] discuss this and her diet.Pt transferred to [facility] to schedule an appointment. documented in this encounter Plan of Treatment Not on file documented as of this encounter Visit Diagnoses Not on filedocumented in this encounter Care Teams Risk Management Intern Relationship Specialty Start Date End Date Arlen Ryan ND PCP - General Naturopathic Medicine 04/09/16 [facility] [address] [address] [place] [address] Gasoline Service AttendantWaste Management Recycling Technician Medicine 03/26/11 documented as of this encounter
--- OUTSIDE RECORDS SUMMARY | 2024-06-02 16:43 | XMS_ITS | Encounter Summary ---
Author Organization [facility] Address [facility] [place] [address] Care Team Providers Care Privacy Attorney Name Role Phone Arlen Ryan ND Primary Care Provider + Encounter Details Date Type Department Care Team (Late st Contact Info) Description 12/08/2017 11:00 AM EDT [place] [address] Pramod Gregory MD [facility] [place] [address] Nephrolithiasis Social History Tobacco Use Types Packs/Day [...] 11:24 AM EDT) Neutrophil % 55.9 % [facility] Neutrophil Absolute 4.13 1.70 - 6.10 x10(3)/[facility] Lymph % 31.9 % [facility] Lymphocytes Abs 2.4 0.9 - 3.2 x10(3)/[facility] Monocyte % 9.1 % [facility] Monocyte Abs 0.7 0.3 - 0.9 x10(3)/[facility] Eos % 2.2 % [facility] Eosinophils Abs 0.2 0.0 - 0.4 x10(3)/[facility] Basophil % 0.8 % [facility] Baso Absolute 0.1 0.0 - 0.1 x10(3)/[facility] [place]ature Gran % 0.10 % [facility] Comment: Immature granulocytes(IG's)percentage and absolute count will include metamyelocytes, myelocytes, and promyelocytes. Blood smears from CBCs yielding IG's will be scanned manually for concordance. If this scan disagrees with the automated IG or if promyelocytes are noted, a manual differential will be performed. Immature Gran Absolute 0.01 0.00 - 0.04 x10(3)/[facility] LABOR[facility] Blood specimen (specimen) 12/08/2017 11:24 AM EDT 12/08/2017 11:29 AM EDT Narrative Resulting Agency Comment Spec In Lab Pramod Gregory MD HEMATOLOGY ORDERABLE S [facility] [place] [address] * Hemogram (12/08/2017 11:24 AM EDT) White Blood Cell 7.4 4.0 - 9.5 x10(3)/[facility] Red Blood Cell 4.62 4.00 - 5.21 x10(6)/[facility] Hemoglobin 14.5 11.7 - 15.5 gm/dL [facility] Hematocrit 42.4 35.7 - 45.8 % [facility] Mean Cell Volume 91.8 82.6 - 94.4 fL [facility] Mean Cell Hemoglobin 31.4 27.1 - 32.0 pg [facility] Mean Cell Hemoglobin Concentration 34.2 31.7 - 35.0 gm/dL [facility] Platelet 255 145 - 357 x10(3)/[facility] RDW Standard Deviation 42.5 37.0 - 46.0 fL [facility] RDW coefficient of variation 12.7 11.5 - 14.1 % [facility] Mean Platelet Volume 11.3 7.6 - 12.9 fL [facility] NRBC% auto 0.0 % [facility] NRBC Absolute 0.000 0.000 - 0.000 x10(3)/[facility] Blood specimen (specimen) 12/08/2017 11:24 AM EDT 12/08/2017 11:29 AM EDT Narrative Resulting Agency Comment Spec In Lab Pramod Gregory MD HEMATOLOGY ORDERABLE S Performing Organization Address City/[facility]/ZIP Co de Phone Number [facility] [place] [address] * Magnesium (12/08/2017 11:24 AM EDT) Magnesium 0.78 0.69 - 1.07 mmol/L [facility] Blood specimen (specimen) 12/08/2017 11:24 AM EDT 12/08/2017 11:29 AM EDT Narrative Resulting Agency Comment Spec In Lab Pramod Gregory MD CHEMISTRY ORDERABLES Performing Organization Address [facility]/ZIP Co de Phone Number [facility] [place] [address] * (ABNORMAL) Basic Metabolic Panel (non-fasting) (12/08/2017 11:24 AM EDT) Glucose 93 65 - 199 mg/dL [facility] Comment:Diabetes: >=200 mg/d L plus symptoms Blood Urea Nitrogen 14 8 - 18 mg/dL [facility] Creatinine 0.71 0.70 - 1.20 mg/dL [facility] Sodium 141 135 - 145 mmol/L [facility] Potassium 3.4(L) 3.5 - 5.0 mmol/L [facility] Comment: Please note: ??Patients with WBC >100,000 may have falsely elevated Potassium levels. ??For accurate Potassium quantification in these patients send serum separator tube (gold top) for subsequent determinations. ??Contact the Clinical Chemistry Laboratory if there are any questions. Chloride 97(L) 98 - 107 mmol/L [facility] Carbon Dioxide 30 22 - 31 mmol/L [facility] Anion Gap 14 5 - 15 mmol/L [facility] Calcium 9.3 8.5 - 10.5 mg/dL [facility] Est Glomerular Filtration Rate >60 >=60 [facility] Comment: The reported eGFR should be multiplied by 1.2 for patients. The MDRD is not an appropriate measure of renal function for patients with body mass extremes or in patients with acute kidney failure. http://Siving Egil [place].Valensum/DHnkdep http://ImagineOptix/DHMCnkf Blood specimen (specimen) 12/08/2017 11:24 AM EDT 12/08/2017 11:29 AM EDT Narrative Resulting Agency Comment Spec In Lab Pramod Gregory MD CHEMISTRY ORDERABLES [facility] [place] [address] documented in this encounter Visit Diagnoses Diagnosis Nephrolithiasis Calculus of kidney documented in this encounter Care Teams Privacy Attorney Relationship Specialty Start Date End Date Arlen Ryan ND PCP - General Naturopathic Medicine 04/09/16 [facility] [address] [address] [place] [address] RooferObservation Nurse Medicine 03/26/11 documented as of this encounter
--- OUTSIDE RECORDS SUMMARY | 2024-06-02 16:43 | XMS_ITS | Encounter Summary ---
Author Organization [facility] [place] [address] Care Team Providers Care Brake Repairer Air Name Role Phone Arlen Ryan ND Primary Care Provider + Encounter Details Date Type Department Care Team (Late st Contact Info) Description 03/16/2020 [place] [phone] David Mcneill LPN Social History Tobacco Use [...] on filedocumented in this encounter Care Teams Brake Repairer Air Relationship Specialty Start Date End Date Arlen Ryan ND PCP - General Naturopathic Medicine 04/09/16 [facility] [address] [address] [place] [address] Driver ExaminerSales Assistant Institutional Sales Medicine 03/26/11 documented as of this encounter
--- OUTSIDE RECORDS SUMMARY | 2024-06-02 16:43 | XMS_ITS | Encounter Summary ---
Author Organization [facility] Address [facility] Maribeth mu[address] [address] Care Team Providers Care Landfill Gas Collection Operator Name Role Phone Arlen Ryan ND Primary Care Provider + Encounter Details Date Type Department Care Team (Latest Contact Info) Description 03/13/2020 11:25 AM EDT - 03/13/2020 11:59 PM EDT Hospital En[place] [address] Sowmya Hernandez Jr., MD [facility] [address] Nephrolithiasis Discharge Disposition: Home Social History Tobacco [...] 12:08 pm) PATIENT INFO: ID #: ? [id number] ?: ??[birth year] (44 yrs)(F) Name: ? BARBI IVEY ?Visit Date: 03/13/2020 11:49 am PERFORMED BY: Performed By: ? Karen Arellano RDMS Attending: ?Kashif MILNER, Laurie Cooper Resident: ? Heber MILNER, Zoie Padron Referred By: ?SOWMYA HERNANDEZ JR Location: ? Lane SERVICE(S) PROVIDED: ??URETRO - Retroperitoneal Complete - [id number] ? [id number] INDICATIONS: ???stones, ? hydronephrosis RIGHT KIDNEY: Size [...] 03/13/2020 12:08 pm) PATIENT INFO: ID #: [id number] : [birth year] (44 yrs)(F) Name: BARBI IVEY Visit Date: 03/13/2020 11:49 am PERFORMED BY: Performed By: Karen Arellano RDMS Attending: Laurie Rowland MD Resident: Zoie Buck MD Referred By: SOWMYA HERNANDEZ JR Location: Lane SERVICE(S) PROVIDED: URETRO - Retroperitoneal Complete - [id number] INDICATIONS: ?stones, ? hydronephrosis RIGHT KIDNEY: Size [...] signed by: Laurie Rowland MD, [facility] ([phone]), at 03/13/2020 12:02 PM Laurie Rowland, Staff Physician Electronically Signed Final Report 03/13/2020 12:08 pm Sowmya Hernandez Jr., MD IMG US GEN ORDERAB LES documented in this encounter Visit Diagnoses Diagnosis Nephrolithiasis Calculus of kidney documented in this encounter Care Teams Landfill Gas Collection Operator Relationship Specialty Start Date End Date Arlen Ryan ND PCP - General Naturopathic Medicine 04/09/16 [facility] [address] [address] [place] [address] Wet Milling Wheel OperatorHeavy Duty Truck Mechanic Medicine 03/26/11 documented as of this encounter
--- OUTSIDE RECORDS SUMMARY | 2024-06-02 16:43 | XMS_ITS | Encounter Summary ---
Author Organization [facility] Address [facility] Maribeth mu[address] [address] Care Team Providers Care Account Executive Key Accounts Name Role Phone Arlen Ryan ND Primary Care Provider + Reason for Visit * Reason Comments Nephrolithiasis Encounter Details Date Type Department Care Team (Late st Contact Info) Description 03/13/2020 1:00 PM EDT [place] [address] Emeka Hernandez Jr., MD [facility] [place] [address] Nephrolithiasis Social History Tobacco Use Types Packs/Day [...] EDT) Glucose 91 65 - 199 mg/dL [facility] Comment:Diabetes: >=200 mg/d L plus symptoms Blood Urea Nitrogen 14 8 - 18 mg/dL [facility] Creatinine 0.75 0.70 - 1.20 mg/dL [facility] Sodium 142 135 - 145 mmol/L [facility] Potassium 3.0(Criti dalia) 3.5 - 5.0 mmol/L [facility] Comment: Called by: OCTAVIO, Read back by: janina vazquez, Date/Time:03/13/20 14:41. Please note: ??Patients with WBC >100,000 may have falsely elevated Potassium levels. ??For accurate Potassium quantification in these patients send serum separator tube (gold top) for subsequent determinations. ??Contact the Clinical Chemistry Laboratory if there are any questions. Chloride 102 98 - 107 mmol/L [facility] Carbon Dioxide 31 22 - 31 mmol/L [facility] Anion Gap 9 5 - 15 mmol/L [facility] Calcium 9.5 8.5 - 10.5 mg/dL [facility] Est Glomerular Filtration Rate 96 >=60 mL/min/1. 73 m?? [facility] Comment: The eGFR was calculated using the CKD-EPI equation. As with all creatinine based estimates of kidney function, eGFR values calculated with the CKD-EPI equation are not accurate in patients with acute kidney failure, extremes of body mass or the acutely ill. http://PNMsoft/[facility] – OKLAHOMA CITYnkf eGFR 112 >=60 mL/min/1. 73 m?? [facility] Comment: The eGFR was calculated using the CKD-EPI equation. As with all creatinine based estimates of kidney function, eGFR values calculated with the CKD-EPI equation are not accurate in patients with acute kidney failure, extremes of body mass or the acutely ill. http://PNMsoft/[facility] – OKLAH[place] CITYnkf Blood specimen (specimen) 03/13/2020 1:48 PM EDT 03/13/2020 1:56 PM EDT Narrative Resulting Agency Comment Spec In Lab Emeka Hernandez Jr., MD CHEMISTRY ORDERABL ES [facility] [place] [address] * _Urinalysis with microscopic (03/13/2020 1:38 PM EDT) Glucose, Urine Dipstick Negative Negative mg/dL [facility] Protein, Urine Dipstick Negative Negative mg/dL [facility] Bilirubin, Urine Dipstick Negative Negative mg/dL [facility] Comment: Clinical correlation required for positive Urine Bilirubin results as false positive may occur with some drugs and drug related products. If a false positive is suspected a serum total bilirubin should be considered if clinically indicated. Urobilinogen, Urine Dipstick Normal Normal mg/dL [facility] pH, Urn (dipstick) 7.5 5.0 - 8.0 [facility] Blood, Urine Dipstick Negative Negative mg/dL [facility] Ketone, Urine Dipstick Negative Negative mg/dL [facility] Nitrite, Urine Dipstick Negative Negative [facility] Leukocytes, Urine Dipstick Negative Negative [facility] Appearance, Urine Dipstick Clear Clear [facility] Specific [place] Urine Automated 1.013 1.006 - 1.030 [facility] Color, Urine Dipstick Yellow Yellow [facility] RBC, Urine 2 0 - 4 /HPF [facility] WBC, Urine 0 0 - 5 /HPF [facility] Hyaline Casts, Urine 1 0 - 2 /LPF [facility] Urine specimen (specimen) 03/13/2020 1:38 PM EDT 03/13/2020 2:57 PM EDT Narrative Resulting Agency Comment Spec In Lab Emeka Hernandez Jr., MD URINE ORDERABLES Performing Organization Address [facility] Co de Phone Number [facility] [place] [address] * (ABNORMAL) Urine culture Clean Catch Urine (03/13/2020 1:38 PM EDT) Urine Culture 10,000-49,000 cfu/ml mixed mucosal sarita Note: Culture shows multiple bacterial species suggesting mucosal contamination. If symptoms continue to indicate urinary tract infection, submit a new specimen. (A) [facility] Urine specimen obtained by clean catch procedure (specimen) 03/13/2020 1:38 PM EDT 03/13/2020 3:57 PM EDT Narrative Resulting Agency Comment Spec In Lab Emeka Hernandez Jr., MD MICROBIOLOGY - GEN ERAL ORDERABLES Performing Organization Address City/[facility] Co de Phone Number [facility] [place] [address] documented in this encounter Visit Diagnoses Diagnosis Nephrolithiasis Calculus of kidney documented in this encounter Care Teams Account Executive Key Accounts Relationship Specialty Start Date End Date Arlen Ryan ND PCP - General Naturopathic Medicine 04/09/16 [facility] [address] [address] [place] [address] Smooth Stucco ResurfacerDetective Youth Bureau Medicine 03/26/11 documented as of this encounter
--- OUTSIDE RECORDS SUMMARY | 2024-06-02 16:43 | XMS_ITS | Encounter Summary ---
Author Organization [facility] Address [facility] Maribeth muñoz [place] [address] Care Team Providers Care Housekeeping Worker Name Role Phone Arlen Ryan ND Primary Care Provider + Encounter Details Date Type Department Care Team (Latest Contact Info) Description 05/10/2019 3:25 PM EDT - 05/10/2019 11:59 PM EDT Hospital En[place] [address] Sowmya Hernandez Jr., MD [facility] [place] [address] Nephrolithiasis Discharge Disposition: Home Social History Tobacco [...] 04:03 pm) PATIENT INFO: ID #: ? [id number] ?: ??[birth year] (43 yrs) Name: ? BARBI IVEY ?Visit Date: 05/10/2019 03:40 pm PERFORMED BY: Performed By: ? Drea MARURFO, ??Lyn Attending: ?Darren MILNER, Sweetie Mendoza Referred By: ?SOWMYA HERNANDEZ Location: ? [place] SERVICE(S) PROVIDED: ??URETRO - Retroperitoneal Complete - [id number] ? [id number] INDICATIONS: ??stones RIGHT KIDNEY: Size (cm) ?L: [...] 05/10/2019 04:03 pm) PATIENT INFO: ID #: [id number] : [birth year] (43 yrs) Name: BARBI IVEY Visit Date: 05/10/2019 03:40 pm PERFORMED BY: Performed By: Lyn Shepard RDMS Attending: Sweetie Banks MD Referred By: SOWMYA HERNANDEZ Location: [place] SERVICE(S) PROVIDED: URETRO - Retroperitoneal Complete - [id number] INDICATIONS: stones RIGHT KIDNEY: Size (cm) L: [...] Electronically Signed Final Report 05/10/2019 04:03 pm Sowmay Hernandez Jr., MD IMG US GEN ORDERAB LES documented in this encounter Visit Diagnoses Diagnosis Nephrolithiasis Calculus of kidney documented in this encounter Care Teams Housekeeping Worker Relationship Specialty Start Date End Date Arlen Ryan ND PCP - General Naturopathic Medicine 04/09/16 [facility] [address] [address] [place] [address] Photographic ColoristMaterial Yard Clerk Medicine 03/26/11 documented as of this encounter
--- OUTSIDE RECORDS SUMMARY | 2024-06-02 16:43 | XMS_ITS | Encounter Summary ---
Author Organization [facility] [address] Care Team Providers Care Resourcing Consultant Name Role Phone Arlen Ryan ND Primary Care Provider + Encounter Details Date Type Department Care Team (Late st Contact Info) Description 02/22/2019 [place] [address] David Mcneill LPN Nephrolithiasis Social History Tobacco [...] 04:03 pm) PATIENT INFO: ID #: ? [id number] ?: ??[birth year] (43 yrs) Name: ? CECILE IVEY ?Visit Date: 05/10/2019 03:40 pm PERFORMED BY: Performed By: ? Drea MARRUFO, ??Lyn Attending: ?Darren MILNER, Sweetie Mendoza Referred By: ?SOWMYA HERNANDEZ JR Location: ? [place] SERVICE(S) PROVIDED: ??URETRO - Retroperitoneal Complete - [id number] ? [id number] INDICATIONS: ??stones RIGHT KIDNEY: Size (cm) ?L: [...] 05/10/2019 04:03 pm) PATIENT INFO: ID #: [id number] : [birth year] (43 yrs) Name: CECILE IVEY Visit Date: 05/10/2019 03:40 pm PERFORMED BY: Performed By: Lyn Shepard RDMS Attending: Sweetie Banks MD Referred By: SOWMYA HERNANDEZ Location: [place] SERVICE(S) PROVIDED: URETRO - Retroperitoneal Complete - [id number] INDICATIONS: stones RIGHT KIDNEY: Size (cm) L: [...] 05/10/2019 04:03 pm Sowmya Hernandez Jr., MD [facility] GEN ORDERAB LES documented in this encounter Visit Diagnoses Diagnosis Nephrolithiasis Calculus of kidney Nephrolithiasis Calculus of kidney documented in this encounter Care Teams Resourcing Consultant Relationship Specialty Start Date End Date NancyArlen villafana FIORELLA PCP - General Naturopathic Medicine 04/09/16 [facility] [address] [address] [place] [address] Entry Level Automotive TechnicianGuest Relations Executive Medicine 03/26/11 documented as of this encounter
--- OUTSIDE RECORDS SUMMARY | 2024-06-02 16:43 | XMS_ITS | Encounter Summary ---
Author Organization [facility] Address [facility] [place] [address] Care Team Providers Care Director Oracle Retail Name Role Phone Arlen Ryan ND Primary Care Provider + Encounter Details Date Type Department Care Team (Late st Contact Info) Description 06/02/2019 [place] [address] Emeka Hernandez Jr., MD [facility] [place] [address] Social History Tobacco Use Types Packs/Day Years [...] on filedocumented in this encounter Care Teams Director Oracle Retail Relationship Specialty Start Date End Date Arlen Ryan ND PCP - General Naturopathic Medicine 04/09/16 [facility] [address] [address] [place] [address] Neurology ManagerTeacher Of The Emotionally Disturbed Medicine 03/26/11 documented as of this encounter
--- OUTSIDE RECORDS SUMMARY | 2024-06-02 16:43 | XMS_ITS | Encounter Summary ---
Author Organization [facility] Address [facility] [address] [place] [address] Care Team Providers Care Oil Pumper Name Role Phone Arlen Ryan ND Primary Care Provider + Encounter Details Date Type Department Care Team (Late st Contact Info) Description 05/10/2019 5:00 PM EDT [place] [address] La Real MD [facility] [place] [address] Nephrolithiasis; Hypertension, unspecified type; Hypokalemia Social History [...] of seeing your patient Barbi Ivey 1975 [id number] Chief Complaint: This is a multidisciplinary metabolic [...] Hypopotassemia documented in this encounter Care Teams Oil Pumper Relationship Specialty Start Date End Date Arlen Ryan ND PCP - General Naturopathic Medicine 04/09/16 [facility] [address] [address] [place] [address] GeneticistManager Financial Services Medicine 03/26/11 documented as of this encounter
--- OUTSIDE RECORDS SUMMARY | 2024-06-02 16:43 | XMS_ITS | Encounter Summary ---
Author Organization [facility] Address [facility] Maribeth mu[address] [address] Care Team Providers Care Asset Management Coordinator Name Role Phone Arlen Ryan ND Primary Care Provider + Reason for Visit * Reason Comments Nephrolithiasis Encounter Details Date Type Department Care Team (Late st Contact Info) Description 05/10/2019 4:30 PM EDT [place] [address] Sowmya Hernandez Jr., MD [facility] [place] [address] Nephrolithiasis Social History Tobacco Use Types Packs/Day [...] below. Electronically signed by: Laurie Rowland MD, [facility] ([phone]), at 03/13/2020 12:02 PM ?Laurie Rowland, Staff Physician Electronically Signed Final Report ?? 03/13/2020 12:08 pm Narrative 03/13/2020 12:09 PM EDT Renal ? (Signed Final 03/13/2020 12:08 pm) PATIENT INFO: ID #: ? [id number] ?: ??[birth year] (44 yrs)(F) Name: ? CECILE IVEY ?Visit Date: 03/13/2020 11:49 am PERFORMED BY: Performed By: ? Karen Arellano RDMS Attending: ?Kashif MILNER, Laurie Cooper Resident: ? Heber MILNER, Zoie Padron Referred By: ?SOWMYA HERNANDEZ JR Location: ? [place] SERVICE(S) PROVIDED: ??URETRO - Retroperitoneal Complete - [id number] ? [id number] INDICATIONS: ???stones, ? hydronephrosis RIGHT KIDNEY: Size [...] 03/13/2020 12:08 pm) PATIENT INFO: ID #: [id number] : [birth year] (44 yrs)(F) Name: CECILE IVEY Visit Date: 03/13/2020 11:49 am PERFORMED BY: Performed By: Karen Arellano RDMS Attending: Laurie Rowland MD Resident: Zoie Buck MD Referred By: SOWMYA HERNANDEZ JR Location: [place] SERVICE(S) PROVIDED: URETRO - Retroperitoneal Complete - [id number] INDICATIONS: ?stones, ? hydronephrosis RIGHT KIDNEY: Size [...] 03/13/2020 12:08 pm Sowmya Hernandez Jr., MD [facility] GEN ORDERAB LES documented in this encounter Visit Diagnoses Diagnosis Nephrolithiasis Calculus of kidney Nephrolithiasis Calculus of kidney documented in this encounter Care Teams Asset Management Coordinator Relationship Specialty Start Date End Date AlisaAlex lopezFIORELLA pitt PCP - General Naturopathic Medicine 04/09/16 [facility] [address] [address] [place] [address] Gun Barrel FinisherSoil Biology Teacher Medicine 03/26/11 documented as of this encounter
--- OUTSIDE RECORDS SUMMARY | 2024-06-02 16:44 | XMS_ITS | Encounter Summary ---
Author Organization [facility] Address [facility] [place] [address] Care Team Providers Care Rubber Molder Name Role Phone Jim Wei MD Primary Care Provider [phone] Encounter Details Date Type Department Care Team (Late st Contact Info) Description 02/01/2015 7:37 AM EDT Anesthesia Event [place] [address] Jocelynn Aguilar MD [facility] [address] [place] [address] Yoav Arnett, [facility] [place] [address] Anesthesia Record Procedure Summary Procedure Name Responsible [...] ; drainage bag to dependent drainage; 24 Latvian Beverly Catheter Inserted ; 02/02/15; 0935 02/01/15 [...] performed by Emeka Hernandez Jr., MD at [facility] MAIN OR History Substance Use Topics [...] regular Pulmonary Assessment: (-) wheezes [facility]: Patient is wearing No contact(s). IV [...] mg documented in this encounter Care Teams Rubber Molder Relationship Specialty Start Date End Date Jim Wei MD [address] [place] [address] PCP - General 07/23/10 10/08/15 [facility] [address] [address] [place] [address] Service Unit OperatorSaw Superintendent Medicine 03/26/11 documented as of this encounter
--- OUTSIDE RECORDS SUMMARY | 2024-06-02 16:44 | XMS_ITS | Encounter Summary ---
[facility] Organization [facility] Address [facility] [address] [place] [address] Care Team Providers Care Branch Maker Name Role Phone Jim Wei MD Primary Care Provider [phone] Encounter Details Date Type Department Care Team (Late st Contact Info) Description 01/11/2015 2:43 PM EDT - 01/11/2015 4:03 PM EDT Surgery [place] [id number] Sowmya Ingram Jr., MD [facility] [place] [address] CYSTO, STENT PLACEMENT (WRVU 2.82) Social History [...] to urinate please call our office at [phone] before 5PM or [phone] after hours. Ureteral Stent Patients: You have [...] side pain, you should call our office [phone] before 5PM or [phone] afterhours. Stent removal: The stent will be exchanged at the time of your stone surgery, February 01. Call Doctor for: Please call if you have copious blood in your urine, severe back or side pain, pain not controlled by pain medications, persistent nausea and vomiting, or for any fevers greater dxfn696.3 F. The number for questions is [phone] before 5 PM weekdays and [phone] after 5 PM and weekends. Pain Medication: [...] Jr., MD - 01/11/2015 9:01 PM EDT [facility] Operative Note Patient Name: Barbi Ivey : [id number] MR#: [id number] Case Date: 01/11/2015 Surgeon: Surgeon(s) and Role: [...] with a Pollack catheter, we shot a relief cook fluoroscopy which clearly identified a large stone in the collecting system, we advanced the Pollack up to 28 cm at which length it was in the collecting system. We performed a pyelogram to identify a non-hydronephrotic but highly branching collecting system. We then placed a GlideWire through the Pollack, removed the Pollack and then placed a 7 Scottish variable stent under fluoroscopic assisted guidance. Drainage was observed and good curl in the bladder. We emptied the bladder and concluded the case. * Brief Op Note - Sowmya Ingram Jr., MD - 01/11/2015 2:36 PM EDT Brief Operative Note Patient Name: Barbi Ivey : [id number] MR#: [id number] Case Date: 01/11/2015 Surgeon: Surgeon(s) and Role: [...] Ordered By: SOWMYA INGRAM JR ? MR#: [id number] ?LOC: ??SDP ? /Sex: ??1975 (39 years), [...] on Nithya 01/11/15 at 1516, Until Nithya 15 at [...] Routine documented in this encounter Care Teams Branch Maker Relationship Specialty Start Date End Date Jim Wei MD [address] [place] [address] PCP - General 07/23/10 10/08/15 [facility] [address] [address] [place] [address] PrescriptionistFurniture Upholsterer Apprentice Medicine 03/26/11 documented as of this encounter
--- OUTSIDE RECORDS SUMMARY | 2024-06-02 16:44 | XMS_ITS | Encounter Summary ---
Author Organization [facility] Address [facility] [address] [address] Care Team Providers Care Opthalmic Tech Name Role Phone Arlen Ryan FIORELLA Primary Care Provider + Encounter Details Date Type Department Care Team (Late st Contact Info) Description 04/09/2016 Orders Only Nephrology [place] [address] Marlene Caputo MD [facility] [place] [address] Hypokalemia Social History Tobacco Use Types Packs/Day [...] intervals supplied above were not validated at [facility]. Results from pediatric patients should be interpreted [...] the following links into your internet browser. [email or web address] Blood specimen (specimen) 04/09/2016 11:57 AM EDT 04/09/2016 12:22 PM EDT Narrative Resulting Agency Comment Spec In Lab Matthew Melvin MD CHEMISTRY ORDERAB LES [facility] [place] [address] documented in this encounter Visit Diagnoses Diagnosis Hypokalemia Hypopotassemia documented in this encounter Care Teams Opthalmic Tech Relationship Specialty Start Date End Date WawrzynkaitlinArlen nails ND PCP - General Naturopathic Medicine 04/09/16 [facility] [address] [address] [place] [address] Geothermal Sheet Metal WorkerJob Compositor Medicine 03/26/11 documented as of this encounter
--- OUTSIDE RECORDS SUMMARY | 2024-06-02 16:44 | XMS_ITS | Encounter Summary ---
Author Organization [facility] Address [facility] [address] [place] [address] Care Team Providers Care Flight Operations Coordinator Name Role Phone Jim Wei MD Primary Care Provider [phone] Reason for Visit * Reason Comments Nephrolithiasis Encounter Details Date Type Department Care Team (Late st Contact Info) Description 04/24/2015 10:00 AM EDT [place] [address] Sowmya Ingram Jr., MD [facility] [place] [address] Recurrent nephrolithiasis Discharge Disposition: Home Social History [...] 01:37 pm) Patient Info ID #: ? [id number] ?: ??[birth year] (39 yrs) Name: ? BARBI IVEY ?Visit Date: 10/09/2015 01:18 pm Performed By Performed By: ? Saranya Love RDMS Attending: ?Johana MILNER, Arlen Ruth Associate: ?Leslie MILNER, Kian Cooper Referred By: ?SOWMYA INGRAM MD Service(s) Provided ??URETRO - Retroperitoneal Complete - [id number] ? [id number] Indications ??? new stone grwth Comparison Renal/bladder [...] 10/09/2015 01:37 pm) Patient Info ID #: [id number] : [birth year] (39 yrs) Name: BARBI IVEY Visit Date: 10/09/2015 01:18 pm Performed By Performed By: Saranya Love RDMS Attending: Arlen Vaughn MD Associate: Kian Nelson MD Referred By: SOWMYA INGRAM MD Service(s) Provided URETRO - Retroperitoneal Complete - [id number] Indications ? new stone grwth Comparison Renal/bladder [...] kidney documented in this encounter Care Teams Flight Operations Coordinator Relationship Specialty Start Date End Date Jim Wei MD [address] [place] [address] PCP - General 07/23/10 10/08/15 [facility] [address] [address] [place] [address] Raw Stock Dyeing Machine TenderRn Intern Medicine 03/26/11 documented as of this encounter
--- OUTSIDE RECORDS SUMMARY | 2024-06-02 16:44 | XMS_ITS | Encounter Summary ---
Author Organization [facility] [place] [address] Care Team Providers Care Chorus Master Name Role Phone Jim Wei MD Primary Care Provider [phone] Reason for Referral * Diagnostic Test (Routine) - Closed Specialty Diagnoses / Procedures Referred By Contac t Referred To Contact Radiology Diagnoses History of kidney stones Hematuria Procedures CT Abdomen & Pelvis Wo Contrast (GENERIC) Mahad Mccullough MD [facility] [place] [address] [facility] [place] [address] Referral ID Status Reason Start Date Expiration Date V isits Requested Visits Authorized [id number] Closed Specialty Service Requested 07/24/2015 10/22/2015 1 1 Reason for Visit * Reason Comments Hematuria Nephrolithiasis Encounter Details Date Type Department Care Team (Late st Contact Info) Description 07/24/2015 11:40 AM EST [place] [address] Sowmya Ingram Jr., MD [facility] [place] [address] History of kidney stones; Hematuria Social History [...] unspecified documented in this encounter Care Teams Chorus Master Relationship Specialty Start Date End Date Jim Wei MD [address] [place] [address] PCP - General 07/23/10 10/08/15 [facility] [address] [address] [place] [address] Steel MelterDiffusion Operator Medicine 03/26/11 documented as of this encounter
--- OUTSIDE RECORDS SUMMARY | 2024-06-02 16:44 | XMS_ITS | Encounter Summary ---
Author Organization [facility] Address [facility] [address] mu[address] [place] [address] Care Team Providers Care Sock Ironer Name Role Phone Belem Mike MD Primary Care Provider [phone] Encounter Details Date Type Department Care Team (Latest Contact Info) Description 02/01/2015 6:08 AM EDT - 02/02/2015 5:20 PM EDT Hospital Encounter [place] [address] Emeka Hernandez Jr., MD [facility] [place] [address] Discharge Disposition: Home Social History Tobacco Use [...] Barbi Ivey Patient Age: 39 y.o. Language: Lebanese Race: White Ethnicity: Not nor Admit date: [...] this became worse so she went to [facility] ED where a CT scan showed a >2 cm branched stone (partial staghorn). Shewas discharged with ibuprofen which has partially helped with her pain. Her pain is very movement associated, but currently she is comfortable. Hospital Course: Patient was admitted electively to [facility] via the same day surgery program and [...] longer draining. The number for questions is [phone] before 5 PM weekdays and [phone] after 5 PM and weekends. Activity: Gradually [...] (acetaminophen) or Ibuprofen (Advil, Motrin) as directed [id number]. Take any prescriptions as directed. Follow up Appointments: Follow-up appointment will be scheduled with Dr. Hernandez in 2-3 weeks for a hospital check and stent removal. Appointment will be mailed to you. Please call [phone] (clinic number for appointments) to confirm date [...] Phone 02/22/2015 11:30 AM UROLOGY, PROCEDURE Urology [phone] 02/22/2015 11:40 AM Emeka Hernandez Jr., MD [facility] [phone] 06/13/2015 1:00 PM Matthew Melvin MD Nephrology [phone] 06/13/2015 1:30 PM Emeka Hernandez Jr., MD Urology [phone] Follow-Up: Future Appointments Date Time Provider Department Center 02/22/2015 11:30 AM UROLOGY, PROCEDURE [facility] 02/22/2015 11:40 AM Emeka Hernandez Jr., MD [facility] None 06/13/2015 1:00 PM Matthew Melvin MD [facility] 06/13/2015 1:30 PM Emeka Hernandez Jr., MD [facility] Primary Care Provider: BELEM MIKE MD [phone] Follow-up Recommendations for Providers: Please see discharge [...] was managed by the Urology Team at [facility]. If you have any questions or concerns, please feel free to contact us. Provider Contact Information: Urology Clinic: [facility] (after business hours): documented in this encounter [...] longer draining. The number for questions is [phone] before 5 PM weekdays and [phone] after 5 PM and weekends. Activity: Gradually [...] (acetaminophen) or Ibuprofen (Advil, Motrin) as directed [id number]. Take any prescriptions as directed. Follow up Appointments: Follow-up appointment will be scheduled with Dr. Hernandez in 2-3 weeks for a hospital check and stent removal. Appointment will be mailed to you. Please call [phone] (clinic number for appointments) to confirm date [...] RN - 02/02/2015 9:43 AM EDT Urology [facility] 0969 removed neph tube min bleeding at site uro-bag applied by [facility]AM[employer] [facility] Pt now OOB in chair -- escalante [...] Only c/o soreness to L flank area. EQUIPMENT STERILIZER initiated w/teaching provided. L flank drsg remains [...] this became worse so she went to [facility] ED where a CT scan showed [...] pain. Genitourinary: S. Saprophiticus UTI diagnosed at [facility] Past medical history: HTN, urolithiasis. Past [...] studies: I independently reviewed the CT from [facility]. 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 She will also have engine manager consultation today as well. documented in this encounter Miscellaneous Notes * Plan of Care - Evelyn Waters RN - 02/02/2015 4:20 PM EDT Problem: General Plan of Care Goal: Plan of Care Review Outcome: Outcome (s) achieved Date Met: 02/02/15 02/02/15 2349 Coping/Psychosocial Response Interventions Plan of Care Reviewed [...] health or care? answered by nurses and DIVIDING MACHINE OPERATOR Goal: Fall Prevention-Safe Patient Handling Outcome: Outcome [...] Operative Note Patient Name: Barbi Ivey : [id number] MR#: [id number] Case Date: 02/01/2015 Surgeon: Surgeon(s) and Role: [...] FR variable length stent, left 24 Fr Sabine Pollack catheter Disposition: awakened from anesthesia, extubated [...] a super-stiff wire. We then used an 8/10-Ugandan dilator to dilate a tract down into the kidney over the super-stiff wire. We removed the inner 8-Ugandan sheath and placed another glidewire down through [...] mapping pyelogram was performed, and then a 7-Ugandan variable-length ureteral stent was placed down into the bladder over a glidewire with a curl in the collecting system. She had a final retrograde showing some extravasation through the lower pole. We then placed a 24-Ugandan Sabine catheter on a Pollack through it before [...] NOTE: OUTCOME SUMMARY: Pt.'s pain controlled with EQUIPMENT STERILIZER but also 5mg's oxycodone,pain averaged 6/10-but 4/10 when oxycodone used in addition to EQUIPMENT STERILIZER. Pt. Had zofran overnight for ongoing nausea. [...] Frida ESCOBEDO in PACU. Patient arrived to [facility] via bed. Is drowsybut appropriate when awakened and able to answer questions. Dressing is CDI. Neph tube and escalante patent and draining pink/red tinged urine. Able to use EQUIPMENT STERILIZER appropriately. PLAN MOVING FORWARD: POC reviewed, oriented to call choe system. Using EQUIPMENT STERILIZER. Taking ice chips. INDIVIDUALIZED FALL PREVENTION: Assistance: [...] Operative Note Patient Name: Barbi Ivey : [id number] MR#: [id number] Case Date: 02/01/2015 Surgeon: Surgeon(s) and Role: [...] MD HEMATOLOGY ORDERAB LES Performing Organization Address City/[facility]/ZIP Co de Phone Number CERNER TOMMIEENNIUM [...] intervals supplied above were not validated at [facility]. Results from pediatric patients should be interpreted [...] the following links into your internet browser. [email or web address] Blood specimen (specimen) 02/02/2015 3:30 AM EDT [...] Emeka Hernandez Jr., MD [facility]EMATOLOGY ORDERAB LES [facility] MILLENNIUM * (ABNORMAL) Basic Metabolic Panel (non-fasting) (02/01/2015 10:38 AM EDT) [facility] Glucose 117 65 - 199 mg/dL CERNER MILLENNIUM Comment:Diabetes: >=200 mg/d L plus symptoms Blood Urea Nitrogen 12 8 - 18 mg/dL CERNER MILLENNIUM Creatinine 0.68(L) 0.70 - 1.20 mg/dL CERNER MILLENNIUM Comment: Please note that the pediatric reference intervals supplied above were not validated at [facility]. Results from pediatric patients should be interpreted [...] the following links into your internet browser. [email or web address] Blood specimen (specimen) 02/01/2015 10:38 AM EDT [...] ??Comment calcium carbonate present Test Performed by: [place] [address] Freight Sales Broker: Foreign Guerrero II, M.D., Ph.D. ASTER FREDERICK [...] BANK LAB ORD ERABLES Performing Organization Address City/[facility] Co de Phone Number ASTER FREDERICK * ABO/Rh Typing (02/01/2015 6:31 AM EDT) ABORH Type O Neg ASTER FREDERICK Blood specimen (specimen) 02/01/2015 6:31 AM EDT 02/01/2015 6:38 AM EDT Narrative Resulting Agency Comment Spec In Lab Emeka Hernandez Jr., MD BLOOD BANK LAB ORD ERABLES Performing Organization Address City/[facility] Co de Phone Number ASTER FREDERICK [...] EDT 12.5 mg HYDROmorphone (DILAUDID) 1 mg/mL EQUIPMENT STERILIZER 30 mL Intravenous, EQUIPMENT STERILIZER ONLY, Starting on Nithya 02/01/15 at 1100, [...] 01/31/2015 02/01/2015 02/02/2015 HYDROmorphone (DILAUDID) 1 mg/mL EQUIPMENT STERILIZER 30 mL (CANCELED) Intravenous, EQUIPMENT STERILIZER ONLY, Starting on Nithya 02/01/15 at 1100, [...] Unit) documented in this encounter Care Teams Sock Ironer Relationship Specialty Start Date End Date Belem Mike MD [address] [place] [address] PCP - General 07/23/10 10/08/15 [facility] [address] [address] [place] [address] Flat FinisherManager Floor Medicine 03/26/11 documented as of this encounter
--- OUTSIDE RECORDS SUMMARY | 2024-06-02 16:44 | XMS_ITS | Encounter Summary ---
Author Organization [facility] Address [facility] [address]ib[address] [place] [address] Care Team Providers Care Etcher Machine Name Role Phone Law Santiago MD Primary Care Provider [phone] Reason for Visit * Reason Comments Nephrolithiasis Encounter Details Date Type Department Care Team (Late st Contact Info) Description 10/09/2015 2:00 PM EST Office [place] [address] Sowmya Hernandez Jr., MD [facility] [place] [address] Nephrolithiasis Social History Tobacco Use Types Packs/Day [...] or a leafy green salad, water S: Chase or Banana, dried fruit - Based on [...] for now unless symptoms arise. Plan repeat miguela ngel jessica/s in 6-9 months,sooner prn. Regarding hypercalciuria, [...] 01:47 pm) PATIENT INFO: ID #: ? [id number] ?: ??[birth year] (40 yrs) Name: ? CECILE IVEY ?Visit Date: 04/09/2016 10:02 am PERFORMED BY: Performed By: ? Marilee Vyas RDMS Attending: ?Johana MILNER, Arlen Ruth Referred By: ?SOWMYA HERNANDEZ MD SERVICE(S) PROVIDED: ??URETRO - Retroperitoneal Complete - [id number] ? [id number] INDICATIONS: ??? stone growth COMPARISON: Renal/bladder ultrasound [...] distended, normal contour : Procedure Note Arlen aVughn MD - 04/09/2016 Renal (Signed Final 04/09/2016 01:47 pm) PATIENT INFO: ID #: [id number] : [birth year] (40 yrs) Name: CECILE IVEY Visit Date: 04/09/2016 10:02 am PERFORMED BY: Performed By: Marilee Vyas RDMS Attending: Arlen Vaughn MD Referred By: SOWMYA HERNANDEZ MD SERVICE(S) PROVIDED: URETRO - Retroperitoneal Complete - [id number] INDICATIONS: ? stone growth COMPARISON: Renal/bladder ultrasound [...] kidney documented in this encounter Care Teams Etcher Machine Relationship Specialty Start Date End Date Law Santiago MD PCP - General Family Medicine 10/09/15 04/08/16 [facility] [address] [address] [place] [address] Audiovisual TechDriver Utility Worker Medicine 03/26/11 documented as of this encounter
--- OUTSIDE RECORDS SUMMARY | 2024-06-02 16:44 | XMS_ITS | Encounter Summary ---
Author Organization [facility] Address [facility] [place] [address] Care Team Providers Care Technical Product Manager Name Role Phone Arlen Ryan ND Primary Care Provider + Reason for Visit * Reason Onset Date Comments Medication Refill 11/24/2016 Encounter Details Date Type Department Care Team (Late st Contact Info) Description 11/24/2016 Refill Nephrology [place] [address] Matthew Melvin MD [facility] [place] [address] Social History Tobacco Use Types Packs/Day Years [...] on filedocumented in this encounter Care Teams Technical Product Manager Relationship Specialty Start Date End Date Arlen Ryan ND PCP - General Naturopathic Medicine 04/09/16 [facility] [address] [address] [place] [address] Toolmaker Grade ThreeHoop Punch And Coiler Operator Helper Medicine 03/26/11 documented as of this encounter
--- OUTSIDE RECORDS SUMMARY | 2024-06-02 16:44 | XMS_ITS | Encounter Summary ---
Author Organization [facility] Address [facility] [address] [place] [address] Care Team Providers Care Health Equipment Servicer Name Role Phone Jim Wei MD Primary Care Provider [phone] Encounter Details Date Type Department Care Team (Latest Contact Info) Description 04/09/2015 2:28 PM EDT - 04/09/2015 11:59 PM EDT Hospital En[place] [address] CLINIC, Sowmya Baez Jr., MD [facility] [place] [address] Kidney stone on left side Discharge Disposition: [...] ? pm) Patient Info ID #: ? [id number] ?: ??[birth year] (39 yrs) Name: ? BARBI FRANCISCOIR ?Visit Date: 04/09/2015 02:41 pm Performed By Performed By: ?Sam MARRUFO, Diamond Attending: ? David MILNER, Tracy Cooper Referred By: ? SOWMYA HERNANDEZ MD Service(s) Provided ??URETRO - Retroperitoneal Complete - [id number] ? 47692 Indications ??? hydro or stone Right Kidney [...] 04/09/2015 02:46 pm) Patient Info ID #: [id number] : [birth year] (39 yrs) Name: BARBI IVEY Visit Date: 04/09/2015 02:41 pm Performed By Performed By: Diamond Vargas RDMS Attending: Tracy Hernandez MD Referred By: SOWMYA HERNANDEZ MD Service(s) Provided URETRO - Retroperitoneal Complete - [id number] Indications ? hydro or stone Right Kidney [...] Signed Final Report 04/09/2015 02:46 pm Sowmya Hernandez Jr., MD IMG US GEN ORDERAB LES documented in this encounter Visit Diagnoses Diagnosis Kidney stone on left side Calculus of kidney documented in this encounter Care Teams Health Equipment Servicer Relationship Specialty Start Date End Date Jim Wei MD [address] [place] [address] PCP - General 07/23/10 10/08/15 [facility] [address] [address] [place] [address] Cardiovascular Invasive SpecialistUniversal Grinder Tool Medicine 03/26/11 documented as of this encounter
--- OUTSIDE RECORDS SUMMARY | 2024-06-02 16:44 | XMS_ITS | Encounter Summary ---
Author Organization [facility] Address [facility] [address]ib[address] mu[address] [place] [address] Care Team Providers Care Batch Heat Treat Operator Name Role Phone Jim Wei MD Primary Care Provider [phone] Reason for Visit * Reason Comments Nephrolithiasis Encounter Details Date Type Department Care Team (Latest Contact Info) Description 02/22/2015 11:40 AM EDT Procedure [place] [address] Sowmya Ingram Jr., MD [facility] [place] [address] Kidney stone on left side (Primary Dx) [...] to void please call our office at [phone] before 5PM or [phone] after hours. Please call if: * you have copious blood in your urine * fevers greater than 101.3 F * you are unable to void The number for questions is [phone] before 5 PM weekdays and [phone] after 5 PM and weekends. Follow-up: With [...] ? pm) Patient Info ID #: ? [id number] ?: ??[birth year] (39 yrs) Name: ? BARBI IVEY ?Visit Date: 04/09/2015 02:41 pm Performed By Performed By: ?Diamond Vargas RDMS Attending: ? David MILNER, Tracy Cooper Referred By: ? SOWMYA INGRAM MD Service(s) Provided ??URETRO - Retroperitoneal Complete - [id number] ? [id number] Indications ??? hydro or stone Right Kidney [...] 04/09/2015 02:46 pm) Patient Info ID #: [id number] : [birth year] (39 yrs) Name: BARBI IVEY Visit Date: 04/09/2015 02:41 pm Performed By Performed By: Diamond Vargas RDMS Attending: Tracy Hernandez MD Referred By: SOWMYA INGRAM MD Service(s) Provided URETRO - Retroperitoneal Complete - [id number] Indications ? hydro or stone Right Kidney [...] kidney documented in this encounter Care Teams Batch Heat Treat Operator Relationship Specialty Start Date End Date Jim Wei MD [address] [place] [address] PCP - General 07/23/10 10/08/15 [facility] [address] [address] [place] [address] Gate TenderHot Saw Operator Medicine 03/26/11 documented as of this encounter
--- OUTSIDE RECORDS SUMMARY | 2024-06-02 16:44 | XMS_ITS | Encounter Summary ---
Author Organization [facility] Address [facility] [place] [address] Care Team Providers Care Organizational Development Specialist Name Role Phone Arlen Ryan ND Primary Care Provider + Reason for Visit * Reason Onset Date Comments Medication Refill 12/18/2016 Encounter Details Date Type Department Care Team (Late st Contact Info) Description 12/18/2016 [place] [address] Emeka Hernandez Jr., MD [facility] [place] [address] Nephrolithiasis Social History Tobacco Use Types Packs/Day [...] kidney documented in this encounter Care Teams Organizational Development Specialist Relationship Specialty Start Date End Date Arlen Ryan ND PCP - General Naturopathic Medicine 04/09/16 [facility] [address] [address] [place] [address] Photoengraving PrinterPlate Hanger Medicine 03/26/11 documented as of this encounter
--- OUTSIDE RECORDS SUMMARY | 2024-06-02 16:44 | XMS_ITS | Encounter Summary ---
Author Organization [facility] [place] [address] Care Team Providers Care Camera Control Operator Name Role Phone Jim Wei MD Primary Care Provider [phone] Encounter Details Date Type Department Care Team (Late st Contact Info) Description 01/11/2015 1:32 PM EDT Anesthesia [place] [address] Jocelynn Aguilar MD [facility] [place] [address] Anoop Hernandez MD [facility] [place] [address] Anesthesia Record Procedure Summary Procedure Name Responsible [...] 1346; metacarpal vein right (top of hand); ghic-rqk-anxyud catheter system; 20 gauge, 1 in length; [...] Notes * Anesthesia Postprocedure Evaluation - Anoop Hernandez MD - 01/11/2015 3:41 PM EDT Patient: [...] full Cardiovascular Assessment: Pulmonary Assessment: [facility] Assessment: [facility]: Anesthesia Plan: ASA 2 general, with [...] mg documented in this encounter Care Teams Camera Control Operator Relationship Specialty Start Date End Date Jim Wei MD [address] [place] [address] PCP - General 07/23/10 10/08/15 [facility] [address] [address] [place] [address] Filter Cloth MakerClerical Production Worker Medicine 03/26/11 documented as of this encounter
--- OUTSIDE RECORDS SUMMARY | 2024-06-02 16:44 | XMS_ITS | Encounter Summary ---
Author Organization [facility] Address [facility] [address] [place] [address] Care Team Providers Care Sales Driver Name Role Phone Arlen Ryan ND Primary Care Provider + Encounter Details Date Type Department Care Team (Latest Contact Info) Description 02/11/2017 8:55 AM EDT - 02/11/2017 11:59 PM EDT Hospital [place] [address] Sowmya Hernandez Jr., MD [facility] [place] [address] Nephrolithiasis Discharge Disposition: Home Social History Tobacco [...] 09:44 am) PATIENT INFO: ID #: ? [id number] ?: ??[birth year] (41 yrs) Name: ? BARBI IVEY ?Visit Date: 02/11/2017 09:20 am PERFORMED BY: Performed By: ? Maryam MARRUFO, ??Patrizia Attending: ?Darren MILNER, Sweetie Mendoza Resident: ? Ang Rivero DO Referred By: ?SOWMYA HERNANDEZ JR Location: ? [place] SERVICE(S) PROVIDED: ??URETRO - Retroperitoneal Complete - [id number] ? [id number] INDICATIONS: ??? stones COMPARISON: Ultrasound: 04/09/16 RIGHT [...] 02/11/2017 09:44 am) PATIENT INFO: ID #: [id number] : [birth year] (41 yrs) Name: BARBI IVEY Visit Date: 02/11/2017 09:20 am PERFORMED BY: Performed By: Patrizia Francisco RDMS Attending: Sweetie Banks MD Resident: Ang Rivero DO Referred By: SOWMYA HERNANDEZ JR Location: [place] SERVICE(S) PROVIDED: URETRO - Retroperitoneal Complete - [id number] INDICATIONS: ? stones COMPARISON: Ultrasound: 04/09/16 RIGHT [...] kidney documented in this encounter Care Teams Sales Driver Relationship Specialty Start Date End Date Arlen Ryan ND PCP - General Naturopathic Medicine 04/09/16 [facility] [address] [address] [place] [address] Transport CoordinatorKnife Glazer Medicine 03/26/11 documented as of this encounter
--- OUTSIDE RECORDS SUMMARY | 2024-06-02 16:44 | XMS_ITS | Encounter Summary ---
Author Organization [facility] [place] [address] Care Team Providers Care Appliance Painter And Refinisher Name Role Phone Jim Wei MD Primary Care Provider [phone] Encounter Details Date Type Department Care Team (Late st Contact Info) Description 02/02/2015 [place] [phone] Kourtney Clark MD [facility] [place] [address] Social History Tobacco Use Types Packs/Day Years [...] on filedocumented in this encounter Care Teams Appliance Painter And Refinisher Relationship Specialty Start Date End Date Jim Wei MD [address] [place] [address] PCP - General 07/23/10 10/08/15 [facility] [address] [address] [place] [address] Survey Operations DirectorManager Wastewater Medicine 03/26/11 documented as of this encounter
--- OUTSIDE RECORDS SUMMARY | 2024-06-02 16:44 | XMS_ITS | Encounter Summary ---
[place] [address] Care Team Providers Care Operations Section Manager Name Role Phone Arlen Ryan ND Primary Care Provider + Reason for Visit * Reason Onset Date Comments Medication Refill 03/27/2017 Encounter Details Date Type Department Care Team (Late st Contact Info) Description 03/27/2017 Refill [place]ph[place] [address] Fran Dhillon, [facility] [place] [address] Nephrolithiasis Social History Tobacco Use Types Packs/Day [...] kidney documented in this encounter Care Teams Operations Section Manager Relationship Specialty Start Date End Date Arlen Ryan ND PCP - General Naturopathic Medicine 04/09/16 [facility] [address] [address] [place] [address] Internal Medicine SpecialistManager Technical Training Medicine 03/26/11 documented as of this encounter
--- OUTSIDE RECORDS SUMMARY | 2024-06-02 16:44 | XMS_ITS | Encounter Summary ---
Author Organization [facility] Address [facility] [address] mu[address] [place] [address] Care Team Providers Care Aircraft Structural Repair Mechanic Name Role Phone Law Santiago MD Primary Care Provider [phone] Encounter Details Date Type Department Care Team (Latest Contact Info) Description 10/09/2015 12:58 PM EST - 10/09/2015 11:59 PM [facility] Hospital [place] [address] Sowmya Hernandez Jr., MD [facility] [place] [address] Recurrent nephrolithiasis Discharge Disposition: Home Social History [...] 01:37 pm) Patient Info ID #: ? [id number] ?: ??[birth year] (39 yrs) Name: ? BARBI IVEY ?Visit Date: 10/09/2015 01:18 pm Performed By Performed By: ? Saranya Love RDMS Attending: ?Johana MILNER, Arlen Ruth Associate: ?Leslie MILNER, Kian Cooper Referred By: ?SOWMYA HERNANDEZ MD Service(s) Provided ??URETRO - Retroperitoneal Complete - [id number] ? [id number] Indications ??? new stone grwth Comparison Renal/bladder [...] 10/09/2015 01:37 pm) Patient Info ID #: [id number] : [birth year] (39 yrs) Name: BARBI IVEY Visit Date: 10/09/2015 01:18 pm Performed By Performed By: Saranya Love RDMS Attending: Arlen Vaughn MD Associate: Kian Nelson MD Referred By: SOWMYA HERNANDEZ MD Service(s) Provided URETRO - Retroperitoneal Complete - [id number] Indications ? new stone grwth Comparison Renal/bladder [...] kidney documented in this encounter Care Teams Aircraft Structural Repair Mechanic Relationship Specialty Start Date End Date Law Santiago MD PCP - General Family Medicine 10/09/15 04/08/16 [facility] [address] [address] [place] [address] Upkeep MechanicRefrigerator Tester Medicine 03/26/11 documented as of this encounter
--- OUTSIDE RECORDS SUMMARY | 2024-06-02 16:44 | XMS_ITS | Encounter Summary ---
Author Organization [facility] [place] [address] Care Team Providers Care Sales Correspondent Name Role Phone Jim Wei MD Primary Care Provider [phone] Encounter Details Date Type Department Care Team (Late st Contact Info) Description 02/08/[address] [place] [address] Romel Pedersen MD [facility] [place] [address] Social History Tobacco Use Types Packs/Day Years [...] on filedocumented in this encounter Care Teams Sales Correspondent Relationship Specialty Start Date End Date Jim Wei MD [address] [place], [place] [id number] PCP - General 07/23/10 10/08/15 [facility] [address] [address] [place] [address] Sales And Service RepresentativeDirector Microbiology Medicine 03/26/11 documented as of this encounter
--- OUTSIDE RECORDS SUMMARY | 2024-06-02 16:44 | XMS_ITS | Encounter Summary ---
Author [facility] [place] [address] Care Team Providers Care Mission Manager Name Role Phone Arlen Ryan ND Primary Care Provider + Reason for Visit * Reason Onset Date Comments Medication Refill 01/08/2017 Encounter Details Date Type Department Care Team (Late st Contact Info) Description 01/08/2017 Refill Nephrology [place] [address] Matthew Melvin MD [facility] [place] [address] Nephrolithiasis Social History Tobacco Use Types Packs/Day [...] kidney documented in this encounter Care Teams Mission Manager Relationship Specialty Start Date End Date Arlen Ryan ND PCP - General Naturopathic Medicine 04/09/16 [facility] [address] [address] [place] [address] Crosscutter Rolled GlassFurnace Packer Medicine 03/26/11 documented as of this encounter
--- OUTSIDE RECORDS SUMMARY | 2024-06-02 16:44 | XMS_ITS | Encounter Summary ---
Author Organization [facility] Address [facility] [address] [place] [address] Care Team Providers Care Fermentation Engineer Name Role Phone Arlen Ryan ND Primary Care Provider + Reason for Visit * Reason Comments Nephrolithiasis Encounter Details Date Type Department Care Team (Late st Contact Info) Description 04/09/2016 11:00 AM EDT Office [place] [address] Sowmya Hernandez Jr., MD [facility] [place] [address] Nephrolithiasis Social History Tobacco Use Types Packs/Day [...] 09:44 am) PATIENT INFO: ID #: ? [id number] ?: ??[birth year] (41 yrs) Name: ? BARBI FRANCISCOIR ?Visit Date: 02/11/2017 09:20 am PERFORMED BY: Performed By: ? Maryam MARRUFO, ??Patrizia Attending: ?Darren MILNER, Sweetie Mendoza Resident: ? Ang Rivero DO Referred By: ?SOWMYA HERNANDEZ JR Location: ? [place] SERVICE(S) PROVIDED: ??URETRO - Retroperitoneal Complete - [id number] ? 32058 INDICATIONS: ??? stones COMPARISON: Ultrasound: 04/09/16 RIGHT [...] 02/11/2017 09:44 am) PATIENT INFO: ID #: [id number] : [birth year] (41 yrs) Name: BARBI IVEY Visit Date: 02/11/2017 09:20 am PERFORMED BY: Performed By: Patrizia Francisco RDMS Attending: Sweetie Banks MD Resident: Ang Rivero DO Referred By: SOWMYA HERNANDEZ JR Location: [place] SERVICE(S) PROVIDED: URETRO - Retroperitoneal Complete - [id number] INDICATIONS: ? stones COMPARISON: Ultrasound: 04/09/16 RIGHT [...] kidney documented in this encounter Care Teams Fermentation Engineer Relationship Specialty Start Date End Date Arlen Ryan ND PCP - General Naturopathic Medicine 04/09/16 [facility] [address] [address] [place] [address] Trimmer LoaderBrick Shader Medicine 03/26/11 documented as of this encounter
--- OUTSIDE RECORDS SUMMARY | 2024-06-02 16:44 | XMS_ITS | Encounter Summary ---
Author Organization [facility] Address [facility] [address] [place] [address] Care Team Providers Care Band Top Maker Name Role Phone Belem Mike MD Primary Care Provider [phone] Encounter Details Date Type Department Care Team (Late st Contact Info) Description 02/01/2015 7:30 AM EDT - 02/01/2015 11:58 AM EDT [place] [phone] Emeka Hernandez Jr., MD [facility] [place] [address] NEPHROLITHOTOMY, (PCNL) PERCUTANEOUS, COMPLEX (EG STONE > [...] Barbi Ivey Patient Age: 39 y.o. Language: Mauritian Race: White Ethnicity: Not nor Admit date: [...] this became worse so she went to [facility] ED where a CT scan showed a >2 cm branched stone (partial staghorn). Shewas discharged with ibuprofen which has partially helped with her pain. Her pain is very movement associated, but currently she is comfortable. Hospital Course: Patient was admitted electively to [facility] via the same day surgery program and [...] longer draining. The number for questions is [phone] before 5 PM weekdays and [phone] after 5 PM and weekends. Activity: Gradually [...] (acetaminophen) or Ibuprofen (Advil, Motrin) as directed [id number]. Take any prescriptions as directed. Follow up Appointments: Follow-up appointment will be scheduled with Dr. Hernandez in 2-3 weeks for a hospital check and stent removal. Appointment will be mailed to you. Please call [phone] (clinic number for appointments) to confirm date [...] Phone 02/22/2015 11:30 AM UROLOGY, PROCEDURE Urology [phone] 02/22/2015 11:40 AM Emeka Hernandez Jr., MD [facility] [phone] 06/13/2015 1:00 PM Matthew Melvin MD Nephrology [phone] 06/13/2015 1:30 PM Emeka Hernandez Jr., MD Urology [phone] Follow-Up: Future Appointments Date Time Provider Department Center 02/22/2015 11:30 AM UROLOGY, PROCEDURE [facility] 02/22/2015 11:40 AM Emeka Hernandez Jr., MD [facility] None 06/13/2015 1:00 PM Matthew Melvin MD [facility] 06/13/2015 1:30 PM Emeka Hernandez Jr., MD [facility] Primary Care Provider: BELEM MIKE MD [phone] Follow-up Recommendations for Providers: Please see discharge [...] managed by the Urology Team at [facility]. If you have any questions or concerns, please feel free to contact us. Provider Contact Information: Urology Clinic: [facility] (after business hours): documented in this encounter [...] longer draining. The number for questions is [phone] before 5 PM weekdays and [phone] after 5 PM and weekends. Activity: Gradually [...] (acetaminophen) or Ibuprofen (Advil, Motrin) as directed [id number]. Take any prescriptions as directed. Follow up Appointments: Follow-up appointment will be scheduled with Dr. Hernandez in 2-3 weeks for a hospital check and stent removal. Appointment will be mailed to you. Please call [phone] (clinic number for appointments) to confirm date [...] RN - 02/02/2015 9:43 AM EDT Urology SCADA OPERATOR 0900 removed neph tube min bleeding at site uro-bag applied by SCADA OPERATOR Pt now OOB in chair -- escalante in place -- will monitor Pt alcides procedure well. Pre med with 5mg oxy PO and 4mg Zofran PO * Frida iPnon RN - 02/01/2015 10:28 AM EDT 1015-Arrival to PACU via bed form OR. Monitors on & alarms set appropriately. Drowsy but arouseable. Reoriented to all surroundings. VSS. L nephrostomy tube c/d/i-draining bloody fluid. Per MD, ok if this 'clots' off. Should call service if notice increase bloody output. Esclaante cath draining clear bloody urine. Denies pain at present. 1030-STAT labs drawn & sent as ordered. 1130-Resting. Arouses easily. States nausea resolved. Only c/o soreness to L flank area. SQL TECH initiated w/teaching provided. L flank drsg remains [...] this became worse so she went to [facility] ED where a CT scan showed [...] pain. Genitourinary: S. Saprophiticus UTI diagnosed at [facility] Past medical history: HTN, urolithiasis. Past [...] studies: I independently reviewed the CT from [facility]. 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 She will also have hose finisher consultation today as well. documented in this encounter Miscellaneous Notes * Plan of Care - Evelyn Waters RN - 02/02/2015 4:20 PM EDT Problem: General Plan of Care Goal: Plan of Care Review Outcome: Outcome (s) achieved Date Met: 02/02/15 02/02/15 9595 Coping/Psychosocial Response Interventions Plan of Care Reviewed [...] health or care? answered by nurses and RECYCLING WORKER Goal: Fall Prevention-Safe Patient Handling Outcome: Outcome [...] Operative Note Patient Name: Barbi Ivey : [id number] MR#: [id number] Case Date: 02/01/2015 Surgeon: Surgeon(s) and Role: [...] a super-stiff wire. We then used an 8/10-Gabonese dilator to dilate a tract down into the kidney over the super-stiff wire. We removed the inner 8-Gabonese sheath and placed another glidewire down through [...] mapping pyelogram was performed, and then a 7-Gabonese variable-length ureteral stent was placed down into the bladder over a glidewire with a curl in the collecting system. She had a final retrograde showing some extravasation through the lower pole. We then placed a 24-Gabonese Beverly catheter on a Pollack through it [...] NOTE: OUTCOME SUMMARY: Pt.'s pain controlled with SQL TECH but also 5mg's oxycodone,pain averaged 6/10-but 4/10 when oxycodone used in addition to SQL TECH. Pt. Had zofran overnight for ongoing nausea. [...] Frida ESCOBEDO in PACU. Patient arrived to [facility] via bed. Is drowsybut appropriate when awakened and able to answer questions. Dressing is CDI. Neph tube and escalante patent and draining pink/red tinged urine. Able to use SQL TECH appropriately. PLAN MOVING FORWARD: POC reviewed, oriented to call choe system. Using SQL TECH. Taking ice chips. INDIVIDUALIZED FALL PREVENTION: Assistance: [...] provide * Brief Op Note - Justin Grayosn - 02/01/2015 10:18 AM EDT Brief Operative Note Patient Name: Barbi Ivey : [id number] MR#: [id number] Case Date: 02/01/2015 Surgeon: Surgeon(s) and Role: [...] 02/01/2015 6:31 AM EDT TYPE AND SCREEN ([facility]/CGP/GREG) STAT 02/01/2015 6:31 AM EDT documented in [...] MD HEMATOLOGY ORDERAB LES Performing Organization Address [facility] Co de Phone Number CERNER MILLENNIUM * [...] MD HEMATOLOGY ORDERAB LES Performing Organization Address City/[facility]/ZIP Co de Phone Number CERINES REILLYENNIUM * (ABNORMAL) Basic Metabolic Panel (non-fasting) (02/02/2015 3:30 AM EDT) [facility] Glucose 123 65 - 199 mg/dL CERNER MILLENNIUM Comment:Diabetes: >=200 mg/d L plus symptoms Blood Urea Nitrogen 6(L) 8 - 18 mg/dL CERNER MILLENNIUM Creatinine 0.63(L) 0.70 - 1.20 mg/dL CERNER MILLENNIUM Comment: Please note that the pediatric reference intervals supplied above were not validated at [facility]. Results from pediatric patients should be interpreted [...] following links into your internet browser. [email or web address]/[email or web address] [email or web address] ASSOCIATIONnkf Blood specimen (specimen) 02/02/2015 3:30 AM EDT 02/02/2015 4:06 AM EDT Narrative Resulting Agency Comment Spec In Lab Emeka Hernandez Jr., MD CHEMISTRY ORDERABL ES [facility] * SCAN DOC: IMPLANTABLE [...] MILLENNIUM * Hemogram (02/01/2015 10:38 AM EDT) [facility] White Blood Cell 6.2 4.0 - 10.0 [...] Emeka Hernandez Jr., MD HEMATOLOGY ORDERAB LES [facility] * (ABNORMAL) Basic Metabolic Panel (non-fasting) (02/01/2015 10:38 AM EDT) [facility] Glucose 117 65 - 199 mg/dL CERNER MILLENNIUM Comment:Diabetes: >=200 mg/d L plus symptoms Blood Urea Nitrogen 12 8 - 18 mg/dL [facility] MILLENNIUM Creatinine 0.68(L) 0.70 - 1.20 mg/dL CERNER MILLENNIUM Comment: Please note that the pediatric reference intervals supplied above were not validated at [facility]. Results from pediatric patients should be interpreted in conjunction to the patient's age, height and muscle mass. Sodium 143 135 - 145 mmol/L [facility] MILLENNIUM Potassium 3.6 3.5 - 5.0 [...] the following links into your internet browser. [email or web address] Blood specimen (specimen) 02/01/2015 10:38 AM EDT [...] ??Comment calcium carbonate present Test Performed by: [place] [address] Investigative Agent: Foreign Guerrero II, M.D., Ph.D. ASTER FREDERICK Calculus specimen (specimen) Other / Unknown 02/01/2015 9:50 AM EDT 02/01/2015 11:29 AM EDT Narrative Resulting Agency Comment Spec In Lab Emeka Hernandez Jr., MD LAB SEND OUT ORDER JU Performing Organization Address [facility] Co de Phone Number ASTER FREDERICK * Antibody screen (02/01/2015 6:31 AM EDT) Ab Screen Interp Negative ASTER FREDERICK Expires at 2359 on: [id number] ASTER FREDERICK Blood specimen (specimen) 02/01/2015 6:31 AM EDT 02/01/2015 6:38 AM EDT Narrative Resulting Agency Comment Spec In Lab Emeka Hernandez Jr., MD BLOOD BANK LAB ORD ERABLES Performing Organization Address [facility] de Phone Number ASTER FREDERICK * ABO/Rh Typing (02/01/2015 6:31 AM EDT) ABORH Type O Neg ASTER FREDERICK Blood specimen (specimen) 02/01/2015 6:31 AM EDT 02/01/2015 6:38 AM EDT Narrative Resulting Agency Comment Spec In Lab Emeka Hernandez Jr., MD BLOOD BANK LAB ORD ERABLES Performing Organization Address [facility] Co de Phone Number ASTER FREDERICK documented [...] EDT 12.5 mg HYDROmorphone (DILAUDID) 1 mg/mL SQL TECH 30 mL Intravenous, SQL TECH ONLY, Starting on Nithya 02/01/15 at 1100, [...] 01/31/2015 02/01/2015 02/02/2015 HYDROmorphone (DILAUDID) 1 mg/mL SQL TECH 30 mL (CANCELED) Intravenous, SQL TECH ONLY, Starting on Nithya 02/01/15 at 1100, [...] Unit) documented in this encounter Care Teams Band Top Maker Relationship Specialty Start Date End Date Belem Mike MD [address] [place] [address] PCP - General 07/23/10 10/08/15 [facility] [address] [address] [place] [address] Sports Team ManagerReimbursement Auditor Medicine 03/26/11 documented as of this encounter
--- OUTSIDE RECORDS SUMMARY | 2024-06-02 16:44 | XMS_ITS | Encounter Summary ---
Author Organization [facility] Address [facility] Maribeth muñ[place] [address] Care Team Providers Care Security Trainer Name Role Phone Arlen Ryan ND Primary Care Provider + Encounter Details Date Type Department Care Team (Late st Contact Info) Description 04/09/2016 11:30 AM EDT [place] [address] Matthew Melvin MD [facility] [address] Nephrolithiasis; Hypokalemia Social History Tobacco Use Types [...] Caputo MD - 04/09/2016 11:30 AM EDT [facility] Nephrology/Metabolic renal stone Follow Up Barbi Ivey [id number] 1975 ID: 40 y.o. female for follow [...] Caputo MD Nephrology Fellow ROSANNE LOPEZ MD [address] [address] * Matthew Melvin MD - 04/09/2016 11:30 [...] intervals supplied above were not validated at [facility]. Results from pediatric patients should [...] the following links into your internet browser. [email or web address] Blood specimen (specimen) 04/09/2016 11:57 AM EDT 04/09/2016 12:22 PM EDT Narrative Resulting Agency Comment Spec In Lab Matthew Melvin MD CHEMISTRY ORDERAB LES [facility] [place] [address] documented in this encounter Visit Diagnoses Diagnosis Nephrolithiasis Calculus of kidney Hypokalemia Hypopotassemia documented in this encounter Care Teams Security Trainer Relationship Specialty Start Date End Date Arlen Ryan ND PCP - General Naturopathic Medicine 04/09/16 [facility] [address] [address] [place] [address] General Manager FoodDust Brush Assembler Medicine 03/26/11 documented as of this encounter
--- OUTSIDE RECORDS SUMMARY | 2024-06-02 16:44 | XMS_ITS | Encounter Summary ---
Author Organization [facility] Marib[address] mu[address] [address] Care Team Providers Care Window Shade Cloth Sewer Name Role Phone Arlen Ryan ND Primary Care Provider + Reason for Visit * Reason Comments Kidney Stone Encounter Details Date Type Department Care Team (Late st Contact Info) Description 02/11/2017 10:30 AM EDT Office [place] [address] Matthew Melvin MD [facility] [place] [address] Kidney stones; Hypokalemia Social History Tobacco Use [...] Fran Dhillon, - 02/11/2017 10:30 AM EDT [facility] Nephrology/Hypertension Follow Up Barbi Ivey [id number] 1975 Patient seen in follow-up of nephrolithiasis. [...] w/ Dr. Olegario Dhillon, DO Nephrology Fellow [facility] [place]len [place], [place] [address] * Matthew Melvin MD - 02/11/2017 10:30 [...] EDT) Glucose 89 65 - 199 mg/dL [facility] Comment:Diabetes: >=200 mg/d L plus symptoms Blood Urea Nitrogen 16 8 - 18 mg/dL [facility] Creatinine 0.78 0.70 - 1.20 mg/dL [facility] Comment: Please note that the pediatric reference intervals supplied above were not validated at [facility]. Results from pediatric patients should be interpreted in conjunction to the patient's age, height and muscle mass. Sodium 137 135 - 145 mmol/L [facility] Potassium 3.4(L) 3.5 - 5.0 mmol/L [facility] Comment: Please note: ??Patients with WBC >100,000 may have falsely elevated Potassium levels. ??For accurate Potassium quantification in these patients send serum separator tube (gold top) for subsequent determinations. ??Contact the Clinical Chemistry Laboratory if there are any questions. Chloride 95(L) 98 - 107 mmol/L [facility] Carbon Dioxide 28 22 - 31 mmol/L [facility] Anion Gap 14 5 - 15 mmol/L [facility] Calcium 9.2 8.5 - 10.5 mg/dL [facility] Est Glomerular Filtration Rate >60 >=60 [facility] Comment: This estimated GFR (eGFR) [...] the following links into your internet browser. [email or web address] Blood specimen (specimen) 02/11/2017 11:08 AM EDT 02/11/2017 11:11 AM EDT Narrative Resulting Agency Comment Spec In Lab Matthew Melvin MD CHEMISTRY ORDERAB LES [facility] [address] [place] [address] documented in this encounter Visit Diagnoses Diagnosis Kidney stones Calculus of kidney Hypokalemia Hypopotassemia documented in this encounter Care Teams Window Shade Cloth Sewer Relationship Specialty Start Date End Date Arlen Ryan ND PCP - General Naturopathic Medicine 04/09/16 [facility] [address] [address] [place] [address] Casting Wheel OperatorPersonnel Associate Medicine 03/26/11 documented as of this encounter
--- OUTSIDE RECORDS SUMMARY | 2024-06-02 16:44 | XMS_ITS | Encounter Summary ---
[place] [address] Care Team Providers Care Technical Assoc Name Role Phone Arlen Ryan ND Primary Care Provider + Reason for Visit * Reason Onset Date Comments Medication Refill 04/09/2016 Encounter Details Date Type Department Care Team (Late st Contact Info) Description 04/09/2016 Refill Nephrology [place] [address] Marlene Caputo MD [facility] [place] [address] Social History Tobacco Use Types Packs/Day Years [...] filedocumented in this encounter Care Teams Technical Assoc Relationship Specialty Start Date End Date Arlen Ryan ND PCP - General Naturopathic Medicine 04/09/16 [facility] [address] [address] [place] [address] Manager Market IntelligenceBed Control Specialist Medicine 03/26/11 documented as of this encounter
--- OUTSIDE RECORDS SUMMARY | 2024-06-02 16:44 | XMS_ITS | Encounter Summary ---
Author Organization [facility] [place] [address] Care Team Providers Care Poured Wall Foreman Name Role Phone Jim Wei MD Primary Care Provider [phone] Encounter Details Date Type Department Care Team (Late st Contact Info) Description 02/06/2015 [place] [address] Kourtney Clark MD [facility] [place] [address] Social History Tobacco Use Types Packs/Day Years [...] on filedocumented in this encounter Care Teams Poured Wall Foreman Relationship Specialty Start Date End Date Jim Wei MD [address] [place] [address] PCP - General 07/23/10 10/08/15 [facility] [address] [address] [place] [address] Fisher Trawl NetRotational Moulding Operator Medicine 03/26/11 documented as of this encounter
--- OUTSIDE RECORDS SUMMARY | 2024-06-02 16:44 | XMS_ITS | Encounter Summary ---
Author Organization [facility] Address [facility] Maribeth muñoz [place] [address] Care Team Providers Care General Manager Road Production Name Role Phone Rosanne Lopez MD Primary Care Provider [phone] Reason for Visit * Reason Comments Nephrolithiasis Encounter Details Date Type Department Care Team (Late st Contact Info) Description 10/09/2015 2:30 PM EST [place] [address] Matthew Melvin MD [facility] [address] Nephrolithiasis Social History Tobacco Use Types Packs/Day [...] 2:13 PM EST Nephrology/Hypertension Clinic Follow-up Note [id number] ID: 39 y.o.year-old female for follow up [...] Location PULSE 98 TEMPERATURE RESPIRATIONS 16 Height (Argentine) 5' 4 Height (Metric) 162.6 cm Weight (Argentine) 190 lbs Weight (Metric) 86.183 kg BODY [...] kidney documented in this encounter Care Teams General Manager Road Production Relationship Specialty Start Date End Date Rosanne Lopez MD PCP - General Family Medicine 10/09/15 04/08/16 [facility] [address] [address] [place] [address] Manufacturing Maintenance ManagerEducation Diagnostician Medicine 03/26/11 documented as of this encounter
--- OUTSIDE RECORDS SUMMARY | 2024-06-02 16:44 | XMS_ITS | Encounter Summary ---
Author Organization [place] [address] Care Team Providers Care Patient Clerical Assistant Name Role Phone Jim Wei MD Primary Care Provider [phone] Encounter Details Date Type Department Care Team (Late st Contact Info) Description 01/14/2015 [place] [address] Anoop Li MD [facility] [place] [address] Social History Tobacco Use Types Packs/Day Years [...] on filedocumented in this encounter Care Teams Patient Clerical Assistant Relationship Specialty Start Date End Date Jim Wei MD [address] [place] [address] PCP - General 07/23/10 10/08/15 [facility] [address] [address] [place] [address] Helicopter Crew ChiefAir Purifier Servicer Medicine 03/26/11 documented as of this encounter
--- OUTSIDE RECORDS SUMMARY | 2024-06-02 16:44 | XMS_ITS | Encounter Summary ---
Author Organization [facility] Address [facility] Maribeth mu[address] [address] Care Team Providers Care Cereal Chemist Name Role Phone Arlen Ryan ND Primary Care Provider + Encounter Details Date Type Department Care Team (Latest Contact Info) Description 04/09/2016 9:14 AM EDT - 04/09/2016 11:59 PM EDT Hospital [place] [address] Sowmya Hernandez Jr., MD [facility] [place] [address] Nephrolithiasis Discharge Disposition: Home Social History Tobacco [...] 01:47 pm) PATIENT INFO: ID #: ? [id number] ?: ??[birth year] (40 yrs) Name: ? BARBI IVEY ?Visit Date: 04/09/2016 10:02 am PERFORMED BY: Performed By: ? Marilee Vyas RDMS Attending: ?Johana MILNER, Arlen Ruth Referred By: ?SOWMYA HERNANDEZ MD SERVICE(S) PROVIDED: ??URETRO - Retroperitoneal Complete - [id number] ? [id number] INDICATIONS: ??? stone growth COMPARISON: Renal/bladder ultrasound [...] 04/09/2016 01:47 pm) PATIENT INFO: ID #: [id number] : [birth year] (40 yrs) Name: BARBI IVEY Visit Date: 04/09/2016 10:02 am PERFORMED BY: Performed By: Marilee Vyas RDMS Attending: Arlen Vaughn MD Referred By: SOWMYA HERNANDEZ MD SERVICE(S) PROVIDED: URETRO - Retroperitoneal Complete - [id number] INDICATIONS: ? stone growth COMPARISON: Renal/bladder ultrasound [...] kidney documented in this encounter Care Teams Cereal Chemist Relationship Specialty Start Date End Date Arlen Ryan ND PCP - General Naturopathic Medicine 04/09/16 [facility] [address] [address] [place] [address] Retail Management KeyholderTraditional Chinese Herbalist Medicine 03/26/11 documented as of this encounter
--- OUTSIDE RECORDS SUMMARY | 2024-06-02 16:44 | XMS_ITS | Encounter Summary ---
Author Organization [place] [address] Care Team Providers Care Professor In Family Studies Name Role Phone Jim Wei MD Primary Care Provider [phone] Reason for Referral * Diagnostic Test (Routine) - Closed Specialty Diagnoses / Procedures Referred By Contac t Referred To Contact Radiology Diagnoses History of kidney stones Hematuria Procedures CT Abdomen & Pelvis Wo Contrast (GENERIC) Mahad Mccullough MD [facility] [place] [address] [facility] [place] [address] Referral ID Status Reason Start Date Expiration Date V isits Requested Visits Authorized [id number] Closed Specialty Service Requested 07/24/2015 10/22/2015 1 1 Reason for Visit * Diagnostic Test (Routine) - Closed Specialty Diagnoses / Procedures Referred By Contac t Referred To Contact Radiology Diagnoses History of kidney stones Hematuria Procedures CT Abdomen & Pelvis Wo Contrast (GENERIC) Mahad Mccullough MD [facility] [place] [address] [facility] [place] [address] Referral ID Status Reason Start Date Expiration Date V isits Requested Visits Authorized [id number] Closed Specialty Service Requested 07/24/2015 10/22/2015 1 1 Encounter Details Date Type Department Care Team (Latest Contact Info) Description 07/24/2015 1:55 PM EST - 07/24/2015 11:59 PM EST Hospital Encounter CT Scan at [facility] [place] [address] Emeka Hernandez Jr., MD [facility] [place] [address] History of kidney stones; Hematuria Discharge Disposition: [...] unspecified documented in this encounter Care Teams Professor In Family Studies Relationship Specialty Start Date End Date Jim Wei MD [address] [place] [address] PCP - General 07/23/10 10/08/15 [facility] [address] [address] [place] [address] American Sign Language InterpreterImaging Nurse Medicine 03/26/11 documented as of this encounter
--- OUTSIDE RECORDS SUMMARY | 2024-06-02 16:44 | XMS_ITS | Encounter Summary ---
Author Organization [facility] Address [facility] Marib[address] mu[address] [address] Care Team Providers Care Silicator Name Role Phone Arlen Ryan ND Primary Care Provider + Reason for Visit * Reason Comments Nephrolithiasis Encounter Details Date Type Department Care Team (Late st Contact Info) Description 02/11/2017 10:00 AM EDT [place] [address] Sowmya Hernandez Jr., MD [facility] [place] [address] Nephrolithiasis Social History Tobacco Use Types Packs/Day [...] 09:18 am) PATIENT INFO: ID #: ? [id number] ?: ??[birth year] (42 yrs) Name: ? BARBI IVEY ?Visit Date: 12/08/2017 08:56 am PERFORMED BY: Performed By: ? Jennie Celaya RDMS Attending: ?Kashif MILNER, Laurie J. Referred By: ?SOWMYA HERNANDEZ Location: ? [place] SERVICE(S) PROVIDED: ??URETRO - Retroperitoneal Complete - [id number] ? [id number] INDICATIONS: ??? stones COMPARISON: US: 02/11/17 RIGHT [...] 12/08/2017 09:18 am) PATIENT INFO: ID #: [id number] : [birth year] (42 yrs) Name: BARBI IVEY Visit Date: 12/08/2017 08:56 am PERFORMED BY: Performed By: Jennie Celaya RDMS Attending: Laurie Rowland MD Referred By: SOWMYA HERNANDEZ JR Location: [place] SERVICE(S) PROVIDED: URETRO - Retroperitoneal Complete - [id number] INDICATIONS: ? stones COMPARISON: US: 02/11/17 RIGHT [...] kidney documented in this encounter Care Teams Silicator Relationship Specialty Start Date End Date Arlen Ryan ND PCP - General Naturopathic Medicine 04/09/16 [facility] [address] [address] [place] [address] Health Informatics SpecialistSolder Sprayer Medicine 03/26/11 documented as of this encounter
--- OUTSIDE RECORDS SUMMARY | 2024-06-02 16:45 | XMS_ITS | Encounter Summary ---
Author Organization [facility] Address [facility] Maribeth muñ[place] [address] Care Team Providers Care Agronomy Advisor Name Role Phone Belem Mike MD Primary Care Provider [phone] Reason for Visit * Reason Comments Nephrolithiasis Encounter Details Date Type Department Care Team (Latest Contact Info) Description 03/16/2013 11:00 AM EDT [place] [address] Matthew Melvin MD [facility] [place] [address] Nephrolithiasis (Primary Dx); Hypokalemia Discharge Disposition: Home [...] 12:15 PM EDT Nephrology/Hypertension Clinic Follow-up Note [id number] ID: 37 y.o.year-old female for follow up [...] DIASTOLIC 92 PULSE 73 RESPIRATIONS 16 Height (South Sudanese) 5' 4 Height (Metric) 162.6 cm Weight ([place]ese) 162 lbs Weight (Metric) 73.483 kg BODY [...] Range: 8.5-10.5 mg/dL 9.3 24 hour urine ([facility], 02/09/13): volume 2.7 liters, calcium 292, oxalate [...] Metabolic Panel (non-fasting) (03/16/2013 11:11 AM EDT) [facility] Glucose 78 60 - 199 mg/dL [facility] Comment:Diabetes: >=200 mg/d L plus symptoms Blood Urea Nitrogen 12 8 - 18 mg/dL [facility] Creatinine 0.60(L) 0.70 - 1.20 mg/dL [facility] Comment: Please note that the pediatric reference intervals supplied above were not validated at [facility]. Results from pediatric patients should [...] MD CHEMISTRY ORDERAB LES Performing Organization Address City/State/[facility] Co de Phone Number [facility] documented in this encounter Visit Diagnoses Diagnosis Nephrolithiasis- Primary Calculus of kidney Hypokalemia Hypopotassemia documented in this encounter Care Teams Agronomy Advisor Relationship Specialty Start Date End Date Belem Mike MD [address] [place] [address] PCP - General 07/23/10 10/08/15 [facility] [address] [address] [place] [address] It AdminLay Out Carpenter Medicine 03/26/11 documented as of this encounter
--- OUTSIDE RECORDS SUMMARY | 2024-06-02 16:45 | XMS_ITS | Encounter Summary ---
Author Organization [facility] Address [facility] Maribeth muñ[place] [address] Care Team Providers Care Truck Driver Heavy Name Role Phone Jim Wei MD Primary Care Provider [phone] Encounter Details Date Type Department Care Team (Late st Contact Info) Description 09/08/2012 Orders [place] [address] Emeka Hernandez Jr., MD [facility] [place] [address] Calculus of kidney (Primary Dx) Social History [...] EST) Glucose 85 60 - 199 mg/dL [facility]ILL[facility]UM Comment:Diabetes: >=200 mg/d L plus symptoms Blood Urea Nitrogen 10 8 - 18 mg/dL [facility] Creatinine 0.71 0.70 - 1.20 mg/dL [facility] Comment: Please note that the pediatric reference intervals supplied above were not validated at [facility]. Results from pediatric [...] ORDERABL ES Performing Organization Address City/State/ZIP Co ca Phone Number [facility] documented in this encounter Visit Diagnoses Diagnosis Calculus of kidney- Primary documented in this encounter Care Teams Truck Driver Heavy Relationship Specialty Start Date End Date Jim Wei MD [address] [place] [address] PCP - General 07/23/10 10/08/15 [facility] [address] [address] [place] [address] Passenger Service RepresentativeRegistered Medical Assistant Medicine 03/26/11 documented as of this encounter
--- OUTSIDE RECORDS SUMMARY | 2024-06-02 16:45 | XMS_ITS | Encounter Summary ---
Author Organization [facility] Address [facility] Maribeth muñ[place] [address] Care Team Providers Care Refrigeration Plant Operator Name Role Phone Jim Wei MD Primary Care Provider [phone] Reason for Visit * Reason Comments Nephrolithiasis Encounter Details Date Type Department Care Team (Late st Contact Info) Description 10/11/2013 2:20 PM [place] [address] Sowmya Ingram Jr., MD [facility] [place] [address] Urolithiasis (Primary Dx) Discharge Disposition: Home Social [...] documented in this encounter Progress Notes * oSwmya Ingram Jr., MD - 10/11/2013 3:15 PM [...] and 0.24) Serum Chemistry Studies: (07/14/13 -- [facility]) serum Ca--8.5; potassium 3.5 Impression/Plan: 1)Urolithiasis -- [...] 01/11/2014 01:57 pm) Patient Info ID: ? [id number] ? : [birth year] (38 yrs) Name: ? BARBI IVEY ? Visit Date: 01/11/2014 01:20 pm Performed By Performed By: ?Rashel MARRUFO, Pam Associate: ? Goodman MILNER, Mahad Attending: ? Jennifer MILNER, Alvarado Ruth Referred By: ? SOWMYA INGRAM MD Service(s) Provided URETRO - Retroperitoneal Complete - [id number] ? [id number] Indications History of kidney stones Comparison CT [...] Final 01/11/2014 01:57 pm) Patient Info ID: [id number] : [birth year] (38 yrs) Name: BARBI IVEY Visit Date: 01/11/2014 01:20 pm Performed By Performed By: Pam Kiser RDMS Associate: Mahad Judge MD Attending: Alvarado Rodriguez MD Referred By: SOWMYA INGRAM MD Service(s) Provided URETRO - Retroperitoneal Complete - [id number] Indications History of kidney stones Comparison CT [...] EDT) Glucose 97 60 - 199 mg/dL [facility] Comment:Diabetes: >=200 mg/d L plus symptoms Blood Urea Nitrogen 11 8 - 18 mg/dL [facility] Creatinine 0.79 0.70 - 1.20 mg/dL [facility] Comment: Please note that the pediatric reference intervals supplied above were not validated at [facility]. Results from pediatric [...] unspecified documented in this encounter Care Teams Refrigeration Plant Operator Relationship Specialty Start Date End Date Jim Wei MD [address] [place] [address] PCP - General 07/23/10 10/08/15 [facility] [address] [address] [place] [address] Die ForgerMicrosoft Office Instructor Medicine 03/26/11 documented as of this encounter
--- OUTSIDE RECORDS SUMMARY | 2024-06-02 16:45 | XMS_ITS | Encounter Summary ---
Author Organization [facility] Address [facility] Maribeth muñ[place] [address] Care Team Providers Care Manager Operations Research Name Role Phone Jim Wei MD Primary Care Provider [phone] Reason for Visit * Reason Comments Nephrolithiasis Encounter Details Date Type Department Care Team (Latest Contact Info) Description 03/16/2013 11:30 AM EDT [place] [address] CLINIC, Emeka Baez Jr., MD [facility] [place] [address] Nephrolithiasis (Primary Dx) Discharge Disposition: Home Social [...] may be related to hypernatriuria--will see Lori oR for dietary consultation. * Denis Garcia - 03/16/2013 7:44 AM EDT See note documented in this encounter Plan of Treatment Not on file documented as of this encounter Visit Diagnoses Diagnosis Nephrolithiasis- Primary Calculus of kidney documented in this encounter Care Teams Manager Operations Research Relationship Specialty Start Date End Date Jim Wei MD [address] [place] [address] PCP - General 07/23/10 10/08/15 [facility] [address] [address] [place] [address] Wet Primer Powder BlenderSewage Disposal Worker Medicine 03/26/11 documented as of this encounter
--- OUTSIDE RECORDS SUMMARY | 2024-06-02 16:45 | XMS_ITS | Encounter Summary ---
Author Organization [facility] [place] [address] Care Team Providers Care Aviation Survival Technician Name Role Phone Jim Wei MD Primary Care Provider [phone] Encounter Details Date Type Department Care Team (Late st Contact Info) Description 01/11/2014 12:57 PM EDT - 01/11/2014 11:59 PM EDT Hospital [place] [address] Urolithiasis Social History Tobacco Use Types Packs/Day [...] 01/11/2014 01:57 pm) Patient Info ID: ? [id number] ? : [birth year] (38 yrs) Name: ? BARBI IVEY ? Visit Date: 01/11/2014 01:20 pm Performed By Performed By: ?Rashel MARRUFO, Pam Associate: ? Goodman MILNER, Mahad Attending: ? Jennifer MILNER, Alvarado Ruth Referred By: ? SOWMYA HERNANDEZ MD Service(s) Provided URETRO - Retroperitoneal Complete - [id number] ? [id number] Indications History of kidney stones Comparison CT [...] Final 01/11/2014 01:57 pm) Patient Info ID: [id number] : [birth year] (38 yrs) Name: BARBI IVEY Visit Date: 01/11/2014 01:20 pm Performed By Performed By: Pam Kiser RDMS Associate: Mahad Judge MD Attending: Alvarado Rodriguez MD Referred By: SOWMYA HERNANDEZ MD Service(s) Provided URETRO - Retroperitoneal Complete - [id number] Indications History of kidney stones Comparison CT [...] unspecified documented in this encounter Care Teams Aviation Survival Technician Relationship Specialty Start Date End Date Jim Wei MD [address] [address] PCP - General 07/23/10 10/08/15 [facility] [address] [address] [place] [address] Geoscience Laboratory TechnicianCan Dryer Medicine 03/26/11 documented as of this encounter
--- OUTSIDE RECORDS SUMMARY | 2024-06-02 16:45 | XMS_ITS | Encounter Summary ---
Author Organization [facility] Address [facility] [place] [address] Care Team Providers Care Stock Counter Name Role Phone Jim Wei MD Primary Care Provider [phone] Encounter Details Date Type Department Care Team (Latest Contact Info) Description 01/10/2015 9:16 AM EDT - 01/10/2015 11:59 PM EDT Hospital [place] [address] Nephrolithiasis Social History Tobacco Use Types Packs/Day [...] ? am) Patient Info ID #: ? [id number] ?: ??[birth year] (39 yrs) Name: ? BARBI IVEY ?Visit Date: 01/10/2015 09:31 am Performed By Performed By: ?George Singletary RDMS Attending: ? Bob MILNER, Meet Lundy Referred By: ? SOWMYA HERNANDEZ MD Service(s) Provided ??URETRO - Retroperitoneal Complete - [id number] ? [id number] Indications ??? stone growth Comparison Outside CT [...] 01/10/2015 10:21 am) Patient Info ID #: [id number] : [birth year] (39 yrs) Name: BARBI IVEY Visit Date: 01/10/2015 09:31 am Performed By Performed By: George Singletary RDMS Attending: Meet Rojas MD Referred By: SOWMYA HERNANDEZ MD Service(s) Provided URETRO - Retroperitoneal Complete - [id number] Indications ? stone growth Comparison Outside CT [...] kidney documented in this encounter Care Teams Stock Counter Relationship Specialty Start Date End Date Jim Wei MD [address] [place] [address] PCP - General 07/23/10 10/08/15 [facility] [address] [address] [place] [address] Leaf BlenderCupola Patcher Medicine 03/26/11 documented as of this encounter
--- OUTSIDE RECORDS SUMMARY | 2024-06-02 16:45 | XMS_ITS | Encounter Summary ---
Author Organization [facility] Address [facility] [address] mu[address] [address] Care Team Providers Care Creeler Name Role Phone Jim Wei MD Primary Care Provider [phone] Encounter Details Date Type Department Care Team (Late st Contact Info) Description 03/17/2013 Orders Only [place] [address] Matthew Melvin MD [facility] [place] [address] Hypokalemia (Primary Dx) Social History Tobacco Use [...] Aldosterone (DECEMBER) 22(H) <=21 ng/dL Stephani [facility] Comment: Reference range based on upright A.M. collection from subjects on ad lewis sodium uptake. Test Performed by: [address] [address] Altitude Chamber Technician: Charles Zimmerman III, M.D. Blood specimen (specimen) 03/23/2013 8:05 AM EDT 03/23/2013 9:08 AM EDT Narrative Resulting Agency Comment Spec In Lab Matthew Melvin MD LAB SEND OUT PAIGE KUMAR Performing Organization Address [facility] de Phone Number [facility] * Renin Activity (03/23/2013 8:05 AM EDT) Renin Activity (DECEMBER) 3.6 ng/ml/hr [facility] Comment: -- REFERENCE VALUE -- (Peripheral vein specimen) Na-deplete, upright: ??Mean: 10.8 ??Range: 2.9-24 Na-replete, upright: ??Mean: 1.9 ??Range: <=0.6-4.3 Test Performed by: [address] [address] Altitude Chamber Technician: Charles Zimmerman III, M.D. Blood specimen (specimen) 03/23/2013 8:05 AM EDT 03/23/2013 9:08 AM EDT Narrative Resulting Agency Comment Spec In Lab Matthew Melvin MD LAB SEND OUT PAIGE TELLEZJOVANNI Performing Organization Address [facility] de Phone Number [facility] documented in this encounter Visit Diagnoses Diagnosis Hypokalemia- Primary Hypopotassemia documented in this encounter Care Teams Creeler Relationship Specialty Start Date End Date Jim Wei MD [address] [place] [address] PCP - General 07/23/10 10/08/[address] [facility] [address] [address] [place] [address] Social Services CounselorMotor Coach Bus Driver Medicine 03/26/11 documented as of this encounter
--- OUTSIDE RECORDS SUMMARY | 2024-06-02 16:45 | XMS_ITS | Encounter Summary ---
Author Organization [facility] Address [facility] [address] [place] [address] Care Team Providers Care Red Cross Executive Director Name Role Phone Jim Wei MD Primary Care Provider [phone] Encounter Details Date Type Department Care Team (Late st Contact Info) Description 01/05/2015 [place] [address] Emeka Hernandez Jr., MD [facility] [place] [address] Social History Tobacco Use Types Packs/Day Years [...] a Non-reportable exam Emeka Hernandez Jr., MD [facility] FILM LIBRARY O RDERABLES documented in this encounter Visit Diagnoses Not on filedocumented in this encounter Care Teams Red Cross Executive Director Relationship Specialty Start Date End Date Jim Wei MD [address] [place] [address] PCP - General 07/23/10 10/08/15 [facility] [address] [address] [place] [address] Blueprinting And Photocopy SupervisorPharmacy Analyst Medicine 03/26/11 documented as of this encounter
--- OUTSIDE RECORDS SUMMARY | 2024-06-02 16:45 | XMS_ITS | Encounter Summary ---
Author Organization [facility] Address [facility] [address] [place] [address] Care Team Providers Care Delivery Technician Name Role Phone Jim Wei MD Primary Care Provider [phone] Encounter Details Date Type Department Care Team (Latest Contact Info) Description 09/08/2012 2:17 PM EST - 09/08/2012 4:54 PM [facility] Hospital Encounter [place] [address] CLINIC, DR ESTEVEZ Calculus of kidney Social [...] 09/08/2012 03:20 pm) Patient Info ID: ? [id number] ? : ??[birth year] (36 yrs) Name: ? BARBI IVEY ? Visit Date: 09/08/2012 02:50 pm Performed By Performed By: ?Patrizia Francisco [facility] Associate: ? Davie Parra MD Attending: ? Meet Rojas MD Referred By: ? SOWMYA HERNANDEZ MD Service(s) Provided URETRO - Retroperitoneal Complete - [id number] ? [id number] Indications History of stones Comparison Ultrasound: 03/16/12 [...] Final 09/08/2012 03:20 pm) Patient Info ID: [id number] : [birth year] (36 yrs) Name: BARBI IVEY Visit Date: 09/08/2012 02:50 pm Performed By Performed By: Patrizia Francisco [facility] Associate: Davie Parra MD Attending: Meet Rojas MD. Referred By: SOWMYA HERNANDEZ MD Service(s) Provided URETRO - Retroperitoneal Complete - [id number] Indications History of stones Comparison Ultrasound: 03/16/12 [...] kidney documented in this encounter Care Teams Delivery Technician Relationship Specialty Start Date End Date Jim Wei MD [address] [place] [address] PCP - General 07/23/10 10/08/15 [facility] [address] [address] [place] [address] Staff AccountantUpper Shaper Medicine 03/26/11 documented as of this encounter
--- OUTSIDE RECORDS SUMMARY | 2024-06-02 16:45 | XMS_ITS | Encounter Summary ---
Author Organization [facility] Address [facility] [address] [place] [address] Care Team Providers Care Legal Executive Assistant Name Role Phone Jim Wei MD Primary Care Provider [phone] Reason for Visit * Reason Onset Date Comments Flank Pain 07/21/2013 Encounter Details Date Type Department Care Team (Late st Contact Info) Description 07/21/2013 [place] [address] Nura Ramirez MD [facility] [place] [address] Flank Pain Social History Tobacco Use Types [...] on filedocumented in this encounter Care Teams Legal Executive Assistant Relationship Specialty Start Date End Date Jim Wei MD [address] [place] [address] PCP - General 07/23/10 10/08/15 [facility] [address] [address] [place] [address] Braid CutterChief Technology Officer Medicine 03/26/11 documented as of this encounter
--- OUTSIDE RECORDS SUMMARY | 2024-06-02 16:45 | XMS_ITS | Encounter Summary ---
Author Organization [facility] Address [facility] [place] [address] Care Team Providers Care Coin Machine Collector Name Role Phone Jim Wei MD Primary Care Provider [phone] Encounter Details Date Type Department Care Team (Late st Contact Info) Description 01/09/2015 Notes [place] [address] Kourtney Clark MD [facility] [place] [address] Social History Tobacco Use Types Packs/Day Years [...] on filedocumented in this encounter Care Teams Coin Machine Collector Relationship Specialty Start Date End Date Jim Wei MD [address] [place], [place] [address] PCP - General 07/23/10 10/08/15 [facility] [address] [address] [place] [address] Hands AssemblerAgronomy Research Manager Medicine 03/26/11 documented as of this encounter
--- OUTSIDE RECORDS SUMMARY | 2024-06-02 16:45 | XMS_ITS | Encounter Summary ---
Author Organization [facility] Address [facility] [place] [address] Care Team Providers Care Cement Truck Loader Name Role Phone Jim Wei MD Primary Care Provider [phone] Encounter Details Date Type Department Care Team (Late st Contact Info) Description 01/09/2015 [place] [address] Kourtney Clark MD [facility] [address] Social History Tobacco Use Types Packs/Day Years [...] her antibiotic called into [facility] in [place], [place]. documented in this encounter Plan of Treatment Not on file documented as of this encounter Visit Diagnoses Not on filedocumented in this encounter Care Teams Cement Truck Loader Relationship Specialty Start Date End Date Jim Wei MD [address] [place] [address] PCP - General 07/23/10 10/08/15 [facility] [address] [address] [place] [address] It Program ManagerDirect Support Professional Medicine 03/26/11 documented as of this encounter
--- OUTSIDE RECORDS SUMMARY | 2024-06-02 16:45 | XMS_ITS | Encounter Summary ---
Author Organization [facility] Address [facility] [address] [place] [address] Care Team Providers Care Continuous Pillowcase Cutter Name Role Phone Belem Mike MD Primary Care Provider [phone] Reason for Visit * Reason Comments Nephrolithiasis Encounter Details Date Type Department Care Team (Late st Contact Info) Description 01/10/2015 11:00 AM EDT [place] [address] Matthew De La Rosa MD [facility] [place] [address] Romeo Macias MD [facility] [place] [address] Nephrolithiasis Discharge Disposition: Home Social History Tobacco [...] of this encounter Progress Notes * Matthew De La Rosa MD - 01/10/2015 3:31 PM EDT The relevant details regarding Cecile C Loni were reviewed with Dr. Macias. The assessment [...] AM EDT Nephrology/Hypertension/Metabolic Stone Clinic Follow-up Note [id number] ID: 39 y.o.year-old female for follow up [...] cm Height in inches 5' 4 Weight (Croatian) 172 lbs Weight (Metric) 78 kg BMI [...] 100 01/10/2015 CO2 24 01/10/2015 Results for CECILE IVEY ( ) as of 01/12/2014 10:24 [...] Dr. Olegario Macias MD Nephrology Fellow Pager #[phone] CC: BELEM MIKE MD @PCPADD@ documented in this encounter Miscellaneous Notes * Addendum Note - Matthew De La Rosa MD - 01/10/2015 3:38 PM EDTAddended by: MATTHEW DE LA ROSA on: 01/10/2015 03:38 PM Modules accepted: Level of Service * Addendum Note - Lorenzo Castellon - 01/10/2015 11:34 AM EDTAddended by: LORENZO CASTELLON on: 01/10/2015 11:34 AM Modules accepted: [...] Metabolic Panel (non-fasting) (01/10/2015 11:37 AM EDT) [facility] Glucose 91 60 - 199 mg/dL CERNER MILLENNIUM Comment:Diabetes: >=200 mg/d L plus symptoms Blood Urea Nitrogen 11 8 - 18 mg/dL CERNER MILLENNIUM Creatinine 0.71 0.70 - 1.20 mg/dL CERNER MILLENNIUM Comment: Please note that the pediatric reference intervals supplied above were not validated at [facility]. Results from pediatric patients should [...] the following links into your internet browser. [email or web address] Blood specimen (specimen) 01/10/2015 11:37 AM EDT 01/10/2015 11:50 AM EDT Narrative Resulting Agency Comment Spec In Lab Matthew De La Rosa MD CHEMISTRY ORDERAB LES [facility] documented in this encounter Visit Diagnoses Diagnosis Nephrolithiasis Calculus of kidney documented in this encounter Care Teams Continuous Pillowcase Cutter Relationship Specialty Start Date End Date Belem Mike MD [address] [place] [address] PCP - General 07/23/10 10/08/15 [facility] [address] [address] [place] [address] Remote Control AssemblerFlower Picker Medicine 03/26/11 documented as of this encounter
--- OUTSIDE RECORDS SUMMARY | 2024-06-02 16:45 | XMS_ITS | Encounter Summary ---
Author Organization [facility] Address [facility] [place] [address] Care Team Providers Care Knitted Cloth Examiner Name Role Phone Jim Wei MD Primary Care Provider [phone] Encounter Details Date Type Department Care Team (Latest Contact Info) Description 03/16/2013 10:10 AM EDT - 03/16/2013 11:59 PM EDT Hospital Encounter [place] [address] Calculus of kidney Social History Tobacco Use [...] 03/16/2013 11:16 am) Patient Info ID: ? [id number] ? : ??[birth year] (37 yrs) Name: ? BARBI IVEY ? Visit Date: 03/16/2013 10:53 am Performed By Performed By: ?Maryam SHARMAID, ??Patrizia Associate: ? Abhinav MILNER, Peter Mathew Attending: ? Arlen Vaughn MD Referred By: ? SOWMYA HERNANDEZ MD Service(s) Provided URETRO - Retroperitoneal Complete - [id number] ? [id number] Indications History of kidney stones Comparison CT [...] Final 03/16/2013 11:16 am) Patient Info ID: [id number] : [birth year] (37 yrs) Name: BARBI IVEY Visit Date: 03/16/2013 10:53 am Performed By Performed By: Patrizia Francisco RDMS Associate: Peter La MD Attending: Arlen Vaughn MD Referred By: SOWMYA HERNANDEZ MD Service(s) Provided URETRO - Retroperitoneal Complete - [id number] Indications History of kidney stones Comparison CT [...] kidney documented in this encounter Care Teams Knitted Cloth Examiner Relationship Specialty Start Date End Date Jim Wei MD [address] [place] [address] PCP - General 07/23/10 10/08/15 [facility] [address] [address] [place] [address] Ore FielderRail Car Painter/Sandblaster Medicine 03/26/11 documented as of this encounter
--- OUTSIDE RECORDS SUMMARY | 2024-06-02 16:45 | XMS_ITS | Encounter Summary ---
Author Organization [facility] Address [facility] [address] [place] [address] Care Team Providers Care Spa Concierge Name Role Phone Jim Wei MD Primary Care Provider [phone] Reason for Visit * Reason Comments Nephrolithiasis Encounter Details Date Type Department Care Team (Late st Contact Info) Description 01/10/2015 10:30 AM EDT Office [place] [address] CLINIC, Emeka Baez Jr., MD [facility] [place] [address] Renal calculus, left Discharge Disposition: Home Social [...] this became worse so she went to [facility] ED where a CT scan showed [...] pain. Genitourinary: S. Saprophiticus UTI diagnosed at [facility] Past medical history: HTN, urolithiasis. Past [...] studies: I independently reviewed the CT from [facility]. 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 She will also have pleater hand consultation today as well. documented in this encounter Plan of Treatment Not on file documented as of this encounter Visit Diagnoses Diagnosis Renal calculus, left Calculus of kidney documented in this encounter Care Teams Spa Concierge Relationship Specialty Start Date End Date Jim Wei MD [address] [place] [address] PCP - General 07/23/10 10/08/15 [facility] [address] [address] [place] [address] Segment Block LayerFlattening Machine Operator Medicine 03/26/11 documented as of this encounter
--- OUTSIDE RECORDS SUMMARY | 2024-06-02 16:45 | XMS_ITS | Encounter Summary ---
Author Organization [facility] Address [facility] [address] [place] [address] Care Team Providers Care News Copy Editor Name Role Phone Jim Wei MD Primary Care Provider [phone] Encounter Details Date Type Department Care Team (Latest Contact Info) Description 09/08/2012 4:55 PM EST - 09/08/2012 11:59 PM [facility] Hospital En[place] [address] Emeka Hernandez Jr., MD [facility] [place] [address] Discharge Disposition: Home Social History Tobacco Use [...] on filedocumented in this encounter Care Teams News Copy Editor Relationship Specialty Start Date End Date Jim Wei MD [address] [place] [address] PCP - General 07/23/10 10/08/15 [facility] [address] [address] [place] [address] Clinical Study ManagerLead Printer Medicine 03/26/11 documented as of this encounter
--- OUTSIDE RECORDS SUMMARY | 2024-06-02 16:45 | XMS_ITS | Encounter Summary ---
Author Organization [facility] Address [facility] [address] [place] [address] Care Team Providers Care Roofing Subcontractor Name Role Phone Jim Wei MD Primary Care Provider [phone] Reason for Visit * Reason Onset Date Comments Results 10/14/2012 Encounter Details Date Type Department Care Team (Late st Contact Info) Description 10/14/2012 Telephone Nephrology [place] [address] Matthew Melvin MD [facility] [place] [address] Results Social History Tobacco Use Types Packs/Day [...] recent lab results. Blood work done at [facility] on 09/24/12 showed normal electrolytes ([id number], potassium 4, chloride 103, CO2 27.6 mmol/l); [...] on filedocumented in this encounter Care Teams Roofing Subcontractor Relationship Specialty Start Date End Date Jim Wei MD [address] [place] [address] PCP - General 07/23/10 10/08/15 [facility] [address] [address] [place] [address] End PackerHealth Director Medicine 03/26/11 documented as of this encounter
--- OUTSIDE RECORDS SUMMARY | 2024-06-02 16:45 | XMS_ITS | Encounter Summary ---
[place] [address] Care Team Providers Care Scalping Machine Operator Name Role Phone Jim Wei MD Primary Care Provider [phone] Encounter Details Date Type Department Care Team (Late st Contact Info) Description 12/21/2013 External Results [place] [address] Social History Tobacco Use Types Packs/Day Years [...] on filedocumented in this encounter Care Teams Scalping Machine Operator Relationship Specialty Start Date End Date Jim Wei MD [address] [place] [address] PCP - General 07/23/10 10/08/15 [facility] [address] [address] [place] [address] Chief Analytics OfficerFraming Carpenter Medicine 03/26/11 documented as of this encounter
--- OUTSIDE RECORDS SUMMARY | 2024-06-02 16:45 | XMS_ITS | Encounter Summary ---
Author Organization [place] [address] Care Team Providers Care Refrigeration Service Inspector Name Role Phone Jim Wei MD Primary Care Provider [phone] Encounter Details Date Type Department Care Team (Latest Contact Info) Description 09/08/2012 4:55 PM [facility] Hospital [place] [address] Calculus of kidney Social History Tobacco Use [...] kidney documented in this encounter Care Teams Refrigeration Service Inspector Relationship Specialty Start Date End Date Jim Wei MD [address] [place] [address] PCP - General 07/23/10 10/08/15 [facility] [address] [address] [place] [address] Pressing Machine TenderSaloon Keeper Medicine 03/26/11 documented as of this encounter
--- OUTSIDE RECORDS SUMMARY | 2024-06-02 16:45 | XMS_ITS | Encounter Summary ---
Author Organization [facility] Address [facility] [place] [address] Care Team Providers Care Systems Engineer Name Role Phone Belem Mike MD Primary Care Provider [phone] Encounter Details Date Type Department Care Team (Late st Contact Info) Description 01/11/2014 1:30 PM EDT Follow-[place] [address] Sai Raphael MD [facility] [place] [address] Nephrolithiasis (Primary Dx); Hypocitraturia Discharge Disposition: Home [...] PM EDT Nephrology/Hypertension/Metabolic Stone Clinic Follow-up Note [id number] ID: 38 y.o.year-old female for follow up [...] cm Height in inches 5' 4 Weight (Indian) 172 lbs Weight (Metric) 78 kg BMI [...] No range found 3.6 24 hour urine ([facility], 02/09/13): volume 2.7 liters, calcium 292, [...] 1 month (lab requisition form sent to [facility], [facility] per pt'srequest) -encouraged to drink water >3 liters/day -stressed on low oxalate diet -repeat litho link study before her next visit in 6 months time Seen and d/w Dr Ijeoma Fields Nephrology Fellow Pager #[phone] CC: BELEM MIKE MD @PCPADD@ documented in this encounter Plan of Treatment Not on file documented as of this encounter Visit Diagnoses Diagnosis Nephrolithiasis- Primary Calculus of kidney Hypocitraturia Other nonspecific finding on examination of urine documented in this encounter Care Teams Systems Engineer Relationship Specialty Start Date End Date Belem Mike MD [address] [place] [address] PCP - General 07/23/10 10/08/15 [facility] [address] [address] [place] [address] Photographic Equipment InspectorStreet Contractor Medicine 03/26/11 documented as of this encounter
--- OUTSIDE RECORDS SUMMARY | 2024-06-02 16:45 | XMS_ITS | Encounter Summary ---
Author Organization [facility] Address [facility] [address] [place] [address] Care Team Providers Care Seismic Engineer Name Role Phone Jim Wei MD Primary Care Provider [phone] Encounter Details Date Type Department Care Team (Late st Contact Info) Description 01/09/2015 [place] [address] Kourtney Clark MD [facility] [place] [address] Social History Tobacco Use Types Packs/Day Years [...] patient to discuss urine culture results From [facility] on 01/05/2015. Patient is having [...] on filedocumented in this encounter Care Teams Seismic Engineer Relationship Specialty Start Date End Date Jim Wei MD [address] [place] [address] PCP - General 07/23/10 10/08/15 [facility] [address] [address] [place] [address] Hand Flatwork FinisherAgronomy Professor Medicine 03/26/11 documented as of this encounter
--- OUTSIDE RECORDS SUMMARY | 2024-06-02 16:45 | XMS_ITS | Encounter Summary ---
Author Organization [facility] Address [facility] [address] [place] [address] Care Team Providers Care Table Top Tile Setter Name Role Phone Jim Wei MD Primary Care Provider [phone] Encounter Details Date Type Department Care Team (Late st Contact Info) Description 03/28/2013 Telephone [place] [address] Matthew Melvin MD [facility] [place] [address] Social History Tobacco Use Types Packs/Day Years [...] on filedocumented in this encounter Care Teams Table Top Tile Setter Relationship Specialty Start Date End Date Jim Wei MD [address] [place] [address] PCP - General 07/23/10 10/08/15 [facility] [address] [address] [place] [address] Soldering InspectorPattern Checker Medicine 03/26/11 documented as of this encounter
--- OUTSIDE RECORDS SUMMARY | 2024-06-02 16:45 | XMS_ITS | Encounter Summary ---
Author Organization [facility], [facility] Address [facility] [address] [place] [address] Care Team Providers Care Tire Mold Engraver Name Role Phone Jim Wei MD Primary Care Provider [phone] Encounter Details Date Type Department Care Team (Late st Contact Info) Description 03/29/2013 Orders Only Nephrology [place] [address] Mtathew Melvin MD [facility] [place] [address] Hypokalemia (Primary Dx) Social History Tobacco Use [...] Hypopotassemia documented in this encounter Care Teams Tire Mold Engraver Relationship Specialty Start Date End Date Jim Wei MD [address] [place], [place] [address] PCP - General 07/23/10 10/08/15 [facility] [address] [address] [place] [address] Vehicle TechnicianDirector Case Management Medicine 03/26/11 documented as of this encounter
--- OUTSIDE RECORDS SUMMARY | 2024-06-02 16:45 | XMS_ITS | Encounter Summary ---
Author Organization [facility] Address [facility] Marib[address] mu[address] [address] Care Team Providers Care Funeral Counselor Name Role Phone Jim Wei MD Primary Care Provider [phone] Encounter Details Date Type Department Care Team (Latest Contact Info) Description 01/11/2015 1:08 PM EDT - 01/11/2015 4:00 PM EDT Hospital Encounter [place] [address] Sowmya Ingram Jr., MD [facility] [place] [address] Discharge Disposition: Home Social History Tobacco Use [...] to urinate please call our office at [phone] before 5PM or [phone] after hours. Ureteral Stent Patients: You have [...] side pain, you should call our office [phone] before 5PM or [phone] afterhours. Stent removal: The stent will be exchanged at the time of your stone surgery, February 01. Call Doctor for: Please call if you have copious blood in your urine, severe back or side pain, pain not controlled by pain medications, persistent nausea and vomiting, or for any fevers greater ppni934.3 F. The number for questions is [phone] before 5 PM weekdays and [phone] after 5 PM and weekends. Pain Medication: [...] Jr., MD - 01/11/2015 9:01 PM EDT [facility] Operative Note Patient Name: Cecile Ivey : [id number] MR#: [id number] Case Date: 01/11/2015 Surgeon: Surgeon(s) and Role: [...] with a Pollack catheter, we shot a endoscopy nurse fluoroscopy which clearly identified a large stone in the collecting system, we advanced the Pollack up to 28 cm at which length it was in the collecting system. We performed a pyelogram to identify a non-hydronephrotic but highly branching collecting system. We then placed a GlideWire through the Pollack, removed the Pollack and then placed a 7 Comoran variable stent under fluoroscopic assisted guidance. Drainage was observed and good curl in the bladder. We emptied the bladder and concluded the case. * Brief Op Note - Sowmya Ingram Jr., MD - 01/11/2015 2:36 PM EDT Brief Operative Note Patient Name: Cecile Ivey : [id number] MR#: [id number] Case Date: 01/11/2015 Surgeon: Surgeon(s) and Role: [...] Ordered By: SOWMYA INGRAM JR ? MR#: [id number] ?LOC: ??SDP ? /Sex: ??1975 (39 years), [...] Routine documented in this encounter Care Teams Funeral Counselor Relationship Specialty Start Date End Date Jim Wei MD [address] [place] [address] PCP - General 07/23/10 10/08/15 [facility] [address] [address] [place] [address] Street Light Servicer HelperConceptor Medicine 03/26/11 documented as of this encounter
--- OUTSIDE RECORDS SUMMARY | 2024-06-02 16:45 | XMS_ITS | Encounter Summary ---
Author Organization [facility] Address [facility] [place] [address] Care Team Providers Care Forward Air Controller/Air Officer Name Role Phone Jim Wei MD Primary Care Provider [phone] Encounter Details Date Type Department Care Team (Latest Contact Info) Description 07/20/2013 1:21 PM EST - 07/20/2013 11:59 PM EST Hospital Encounter XRay at [address] [place] [address] Nephrolithiasis Social History Tobacco Use Types Packs/Day [...] 09/08/2012. ? 3. IVP 07/11/2009. Technique Precontrast matlab developer view of the kidneys, ureter, and bladder [...] A/P 09/08/2012. 3. IVP 07/11/2009. Technique Precontrast matlab developer view of the kidneys, ureter, and bladder [...] mLs documented in this encounter Care Teams Forward Air Controller/Air Officer Relationship Specialty Start Date End Date Jim Wei MD [address] [place] [address] PCP - General 07/23/10 10/08/15 [facility] [address] [address] [place] [address] Credit Department ManagerSock Knitter Medicine 03/26/11 documented as of this encounter
--- OUTSIDE RECORDS SUMMARY | 2024-06-02 16:45 | XMS_ITS | Encounter Summary ---
Author Organization [facility] Address [facility] [address] [place] [address] Care Team Providers Care Ecological Technical Officer Name Role Phone Jim Wei MD Primary Care Provider [phone] Reason for Visit * Reason Comments Follow-up Encounter Details Date Type Department Care Team (Late st Contact Info) Description 09/08/2012 3:00 PM EST [place] [address] Sowmya Hernandez Jr., MD [facility] [place] [address] Calculus of kidney (Primary Dx) Discharge Disposition: [...] 03/16/2013 11:16 am) Patient Info ID: ? [id number] ? : [birth year] (37 yrs) Name: ? CECILE IVEY ? Visit Date: 03/16/2013 10:53 am Performed By Performed By: ?Maryam [facility], ??Patrizia Associate: ? Abhinav MILNER, Peter Mathew Attending: ? Johana MILNER, Arlen Ruth Referred By: ? SOWMYA HERNANDEZ MD Service(s) Provided URETRO - Retroperitoneal Complete - [id number] ? [id number] Indications History of kidney stones Comparison CT [...] Final 03/16/2013 11:16 am) Patient Info ID: [id number] : [birth year] (37 yrs) Name: CECILE IVEY Visit Date: 03/16/2013 10:53 am Performed By Performed By: Patrizia Francisco RDMS Associate: Peter aL MD Attending: Arlen Vaughn MD Referred By: SOWMYA HERNANDEZ MD Service(s) Provided URETRO - Retroperitoneal Complete - [id number] Indications History of kidney stones Comparison CT [...] (09/08/2012 3:24 PM EST) [facility] Glucose 85 60 - 199 mg/dL CERNER [...] MD CHEMISTRY ORDERABL ES Performing Organization Address City/State/[facility] Co vt Phone Number [facility] documented in this encounter Visit Diagnoses Diagnosis Calculus of kidney- Primary Calculus of kidney Calculus of kidney documented in this encounter Care Teams Ecological Technical Officer Relationship Specialty Start Date End Date Jim Wei MD [address] [place] [address] PCP - General 07/23/10 10/08/[address] [facility] [address] [address] [place] [address] Head CounselorPaint Stripper Medicine 03/26/11 documented as of this encounter
--- OUTSIDE RECORDS SUMMARY | 2024-06-02 16:45 | XMS_ITS | Encounter Summary ---
Author Organization [facility] Address [facility] [address] [place] [address] Care Team Providers Care Help Desk Operator Name Role Phone Jim Wei MD Primary Care Provider [phone] Encounter Details Date Type Department Care Team (Latest Contact Info) Description 03/23/2013 7:43 AM EDT - 03/23/2013 11:59 PM EDT Hospital [place] [address] Matthew Melvin MD [facility] [place] [address] Hypokalemia Discharge Disposition: Home Social History Tobacco [...] Aldosterone (03/23/2013 8:05 AM EDT) Pathologist [facility] Aldosterone (DECEMBER) 22(H) <=21 ng/dL [facility] Comment: Reference range based on upright A.M. collection from subjects on ad lewis sodium uptake. Test Performed by: [place] [address] Grain Elevator Operator: Charles Zimmerman III, M.D. Blood specimen (specimen) 03/23/2013 8:05 AM EDT 03/23/2013 9:08 AM EDT Narrative Resulting Agency Comment Spec In Lab Matthew Melvin MD LAB SEND OUT PAIGE KUMAR [facility] Organization Address City/State/ZIP Co de Phone Number [facility] * Renin Activity (03/23/2013 8:05 AM EDT) [facility] Renin Activity (DECEMBER) 3.6 ng/ml/hr [facility] Comment: -- REFERENCE VALUE -- (Peripheral vein specimen) Na-deplete, upright: ??Mean: 10.8 ??Range: 2.9-24 Na-replete, upright: ??Mean: 1.9 ??Range: <=0.6-4.3 Test Performed by: [address] [address] Grain Elevator Operator: Charles R. Cockerill, III, M.D. Blood specimen (specimen) 03/23/2013 8:05 AM EDT 03/23/2013 9:08 AM EDT Narrative Resulting Agency Comment Spec In Lab Matthew Melvin MD LAB SEND OUT PAIGE KUMAR Performing Organization Address City/State/[facility] Co ct Phone Number [facility] documented in this encounter Visit Diagnoses Diagnosis Hypokalemia Hypopotassemia documented in this encounter Care Teams Help Desk Operator Relationship Specialty Start Date End Date Jim Wei MD [address] [place] [address] PCP - General 07/23/10 10/08/15 [facility] [address] [address] [place] [address] Metal MinerAssociate Merchant Medicine 03/26/11 documented as of this encounter
--- OUTSIDE RECORDS SUMMARY | 2024-06-02 16:45 | XMS_ITS | Encounter Summary ---
Author Organization [facility] Address [facility] [place] [address] Care Team Providers Care Lead Java J2Ee Developer Name Role Phone Belem Mike MD Primary Care Provider [phone] Encounter Details Date Type Department Care Team (Late st Contact Info) Description 07/12/2014 11:00 AM EST [place] [address] Pramod Gregory MD [facility] [place] [address] Nephrolithiasis Discharge Disposition: Home Social History Tobacco [...] AM EST Nephrology/Hypertension/Metabolic Stone Clinic Follow-up Note [id number] ID: 38 y.o.year-old female for follow up [...] hypotension ??? Penicillins Hives Subjective: Bilateral juan antonio pains within the past week. It is [...] cm Height in inches 5' 4 Weight (Urdu) 172 lbs Weight (Metric) 78 kg BMI [...] Gregory. Romeo Macias MD Nephrology Fellow Pager #[phone] CC: BELEM MIKE MD @[email or web address]@ documented in this encounter Plan of Treatment Not on file documented as of this encounter Visit Diagnoses Diagnosis Nephrolithiasis Calculus of kidney documented in this encounter Care Teams Lead Java J2Ee Developer Relationship Specialty Start Date End Date Belem Mike MD [address] [place] [address] PCP - General 07/23/10 10/08/15 [facility] [address] [address] [place] [address] Kaiako Kura Kaupapa MaoriQuality Assurance Clerk Medicine 03/26/11 documented as of this encounter
--- OUTSIDE RECORDS SUMMARY | 2024-06-02 16:45 | XMS_ITS | Encounter Summary ---
[place] [address] Care Team Providers Care Asbestos Worker Helper Name Role Phone Jim Wei MD Primary Care Provider [phone] Encounter Details Date Type Department Care Team (Latest Contact Info) Description 07/20/2013 10:23 AM EST - 07/20/2013 1:20 PM [facility] Hospital [place] [address] Nephrolithiasis Social History Tobacco Use Types Packs/Day [...] kidney documented in this encounter Care Teams Asbestos Worker Helper Relationship Specialty Start Date End Date Jim Wei MD [address] [place] [address] PCP - General 07/23/10 10/08/15 [facility] [address] [address] [place] [address] Supervisor Quality ControlSalesperson Flying Squad Medicine 03/26/11 documented as of this encounter
--- OUTSIDE RECORDS SUMMARY | 2024-06-02 16:45 | XMS_ITS | Encounter Summary ---
Author Organization [facility] Address [facility] [address] mu[address] [address] Care Team Providers Care Seismograph Chief Name Role Phone Jim Wei MD Primary Care Provider [phone] Encounter Details Date Type Department Care Team (Late st Contact Info) Description 02/01/2014 [place] [address] Emeka Hernandez Jr., MD [facility] [place] [address] Social History Tobacco Use Types Packs/Day Years [...] Smith LPN - 02/01/2014 9:31 AM EDT [place] laboratory calls today reporting that the order for BMP from Rashard Raphael and David is unreadable. New order printed and faxed. documented in this encounter Plan of Treatment Not on file documented as of this encounter Visit Diagnoses Diagnosis History of kidney stones- Primary Personal history of urinary calculi documented in this encounter Care Teams Seismograph Chief Relationship Specialty Start Date End Date Jim Wei MD [address] [place] [address] PCP - General 07/23/10 10/08/15 [facility] [address] [address] [place] [address] Cook Fast FoodRental Sales Agent Medicine 03/26/11 documented as of this encounter
--- OUTSIDE RECORDS SUMMARY | 2024-06-02 16:45 | XMS_ITS | Encounter Summary ---
Author Organization [facility] Address [facility] [place] [address] Care Team Providers Care Assistant Professor Of Art Name Role Phone Jim Wei MD Primary Care Provider [phone] Encounter Details Date Type Department Care Team (Late st Contact Info) Description 07/12/2014 9:30 AM EST - 07/12/2014 11:59 PM [facility] Hospital [place] [address] Urolithiasis Social History Tobacco Use Types Packs/Day [...] ? pm) Patient Info ID #: ? [id number] ?: ??[birth year] (38 yrs) Name: ? BARBI Stephani IVEY ?Visit Date: 07/12/2014 10:21 am Performed By Performed By: ?George Singletary RDMS Associate: ? Reagan Goetz MD Attending: ? Arlen Vaughn MD Referred By: ? SOWMYA HERNANDEZ MD Service(s) Provided ??URETRO - Retroperitoneal Complete - [id number] ? [id number] Indications ??? new stones Comparison Renal/bladder ultrasound [...] 07/12/2014 12:24 pm) Patient Info ID #: [id number] : [birth year] (38 yrs) Name: BARBI IVEY Visit Date: 07/12/2014 10:21 am Performed By Performed By: George Singletary RDMS Associate: Reagan Goetz MD Attending: Arlen Vaughn MD Referred By: SOWMYA HERNANDEZ MD Service(s) Provided URETRO - Retroperitoneal Complete - [id number] Indications ? new stones Comparison Renal/bladder ultrasound [...] unspecified documented in this encounter Care Teams Assistant Professor Of Art Relationship Specialty Start Date End Date Jim Wei MD [address] [place] [address] PCP - General 07/23/10 10/08/15 [facility] [address] [address] [place] [address] Model DresserDungeon Master Medicine 03/26/11 documented as of this encounter
--- OUTSIDE RECORDS SUMMARY | 2024-06-02 16:45 | XMS_ITS | Encounter Summary ---
Author Organization [facility] Address [facility] Maribeth muñoz [place] [address] Care Team Providers Care Innersole Maker Name Role Phone Jim Wei MD Primary Care Provider [phone] Reason for Visit * Reason Comments Nephrolithiasis Encounter Details Date Type Department Care Team (Late st Contact Info) Description 07/20/2013 9:30 AM EST [place] [address] Sowmya Ingram Jr., MD [facility] [place] [address] Nephrolithiasis (Primary Dx); Calculus of kidney Discharge [...] independently reviewed her renal u/s report from [facility], with results of right hydronephrosis without definite [...] and 0.24) Serum Chemistry Studies: (07/14/13 -- [facility]) serum Ca--8.5; potassium 3.5 Impression/Plan: 1)Urolithiasis [...] 09/08/2012. ? 3. IVP 07/11/2009. Technique Precontrast bridge painter helper view of the kidneys, ureter, and bladder [...] A/P 09/08/2012. 3. IVP 07/11/2009. Technique Precontrast bridge painter helper view of the kidneys, ureter, and bladder [...] Ordered By: SOWMYA INGRAM JR ? MR#: [id number] ?LOC: ??5B ? /Sex: ??1975 (37 years), [...] intervals supplied above were not validated at [facility]. Results from pediatric patients should be interpreted [...] the following links into your internet browser. http://www.Arboribusdep.nih.gov/lab-evaluation.shtml http://www.kidney.org/professionals/ Blood specimen (specimen) 07/20/2013 12:55 PM EST 07/20/2013 1:02 PM EST Narrative Resulting Agency Comment Spec In Lab Sowmya Ingram Jr., MD CHEMISTRY ORDERABL ES Performing Organization Address [facility] Co de Phone Number CERNER [...] Urine Dipstick Clear Clear CERNER MILLENNIUM Specific [place] Urine Automated 1.009 1.002 - 1.030 CERNER [...] Jr., MD URINE ORDERABLES Performing Organization Address [facility] Co de Phone Number CERNER [...] kidney documented in this encounter Care Teams Innersole Maker Relationship Specialty Start Date End Date Jim Wei MD [address] [place] [address] PCP - General 07/23/10 10/08/15 [facility] [address] [address] [place] [address] Dieing Out Machine OperatorHead Lineman Medicine 03/26/11 documented as of this encounter
--- OUTSIDE RECORDS SUMMARY | 2024-06-02 16:45 | XMS_ITS | Encounter Summary ---
Author Organization [facility] Address [facility] Marib[address] mu[address] [address] Care Team Providers Care Printed Circuit Boards Plasma Etcher Name Role Phone Jim Wei MD Primary Care Provider [phone] Encounter Details Date Type Department Care Team (Late st Contact Info) Description 07/18/2013 [place] [address] Emeka Hernandez Jr., MD [facility] [place] [address] Social History Tobacco Use Types Packs/Day Years [...] on filedocumented in this encounter Care Teams Printed Circuit Boards Plasma Etcher Relationship Specialty Start Date End Date Jim Wei MD [address] [place] [address] PCP - General 07/23/10 10/08/15 [facility] [address] [address] [place] [address] Lumber RackerMonogram Technician Medicine 03/26/11 documented as of this encounter
--- OUTSIDE RECORDS SUMMARY | 2024-06-02 16:45 | XMS_ITS | Encounter Summary ---
Author Organization [facility] Address [facility] Marib[address] mu[address] [address] Care Team Providers Care Forestry Technician Name Role Phone Jim Wei MD Primary Care Provider [phone] Encounter Details Date Type Department Care Team (Late st Contact Info) Description 09/08/2012 3:30 [place] [address] Matthew Melvin MD [facility] [address] Hypokalemia (Primary Dx) Social History Tobacco Use [...] 3:27 PM EST Nephrology/Hypertension Clinic Follow-up Note [id number] ID: 36 y.o.year-old female for follow up [...] blood. Most recent 24 hour urine data ([facility], 01/29/12): volume 2 liters, calcium 121, oxalate [...] Hypopotassemia documented in this encounter Care Teams Forestry Technician Relationship Specialty Start Date End Date Jim Wei MD [address] [place] [address] PCP - General 07/23/10 10/08/15 [facility] [address] [address] [place] [address] Stone Belt SanderNeedle Valve Operator Medicine 03/26/11 documented as of this encounter
--- OUTSIDE RECORDS SUMMARY | 2024-06-02 16:45 | XMS_ITS | Encounter Summary ---
Author Organization [facility] Address [facility] Maribeth muñoz [place] [address] Care Team Providers Care Traffic Control Signaler Name Role Phone Jim Wei MD Primary Care Provider [phone] Encounter Details Date Type Department Care Team (Late st Contact Info) Description 03/29/2013 Telephone Nephrology [place] [address] Matthew Melvin MD [facility] [place] [address] Social History Tobacco Use Types Packs/Day Years [...] on filedocumented in this encounter Care Teams Traffic Control Signaler Relationship Specialty Start Date End Date Jim Wei MD [address] [place] [address] PCP - General 07/23/10 10/08/15 [facility] [address] [address] [place] [address] Cook PressureCar Supervisor Medicine 03/26/11 documented as of this encounter
--- OUTSIDE RECORDS SUMMARY | 2024-06-02 16:45 | XMS_ITS | Encounter Summary ---
Author Organization [facility] [place] [address] Care Team Providers Care Instructor Technical Training Name Role Phone Jim Wei MD Primary Care Provider [phone] Encounter Details Date Type Department Care Team (Late st Contact Info) Description 01/08/2015 [place] [address] Justin Grayson MD [facility] [place] [address] Social History Tobacco Use Types Packs/Day Years [...] in two days on 01/10. Went to [facility] ED on Thursday due to left flank pain and was told she had a quarter of an inch kidney stone flopping around in her kidney. Sent home on ibuprofen. Will as [facility] to electronically send us the images and will call her when I have had a chance to review them. documented in this encounter Plan of Treatment Not on file documented as of this encounter Visit Diagnoses Not on filedocumented in this encounter Care Teams Instructor Technical Training Relationship Specialty Start Date End Date Jim Wei MD [address] [place] [address] PCP - General 07/23/10 10/08/15 [facility] [address] [address] [place] [address] Lorry WeigherRadiation Control Worker Medicine 03/26/11 documented as of this encounter
--- OUTSIDE RECORDS SUMMARY | 2024-06-02 16:45 | XMS_ITS | Encounter Summary ---
Author Organization [facility] Address [facility] Marib[address] mu[address] [address] Care Team Providers Care Brazing Machine Tender Name Role Phone Jim Wei MD Primary Care Provider [phone] Encounter Details Date Type Department Care Team (Late st Contact Info) Description 01/10/2015 Orders Only [place] [address] Matthew Melvin MD [facility] [place] [address] Nephrolithiasis Social History Tobacco Use Types Packs/Day [...] Metabolic Panel (non-fasting) (01/10/2015 11:37 AM EDT) [facility] Glucose 91 60 - 199 mg/dL [facility] Comment:Diabetes: >=200 mg/d L plus symptoms Blood Urea Nitrogen 11 8 - 18 mg/dL [facility] Creatinine 0.71 0.70 - 1.20 mg/dL CERNER MILLENNIUM Comment: Please note that the pediatric reference intervals supplied above were not validated at [facility]. Results from pediatric [...] the following links into your internet browser. [email or web address]/DHnkdep [email or web address] Blood specimen (specimen) 01/10/2015 11:37 AM EDT 01/10/2015 11:50 AM EDT Narrative Resulting Agency Comment Spec In Lab Matthew Melvin MD CHEMISTRY ORDERAB LES [facility] documented in this encounter Visit Diagnoses Diagnosis Nephrolithiasis Calculus of kidney documented in this encounter Care Teams Brazing Machine Tender Relationship Specialty Start Date End Date Jim Wei MD [address] [place] [address] PCP - General 07/23/10 10/08/15 [facility] [address] [address] [place] [address] Officer Medicine 03/26/11 documented as of this encounter
--- OUTSIDE RECORDS SUMMARY | 2024-06-02 16:45 | XMS_ITS | Encounter Summary ---
Author Organization [facility] Address [facility] Maribeth muñ[place] [address] Care Team Providers Care Secretary Of Police Name Role Phone Jim Wei MD Primary Care Provider [phone] Reason for Visit * Reason Comments Nephrolithiasis Encounter Details Date Type Department Care Team (Late st Contact Info) Description 01/11/2014 2:00 PM EDT [place] [address] CLINIC, Sowmya Baez Jr., MD [facility] [place] [address] Urolithiasis (Primary Dx) Discharge Disposition: Home Social [...] Most recent 24h urine (12/21/13) scanned into [facility] -- notable for low urine volume (<2liters) [...] ? pm) Patient Info ID #: ? [id number] ?: ??[birth year] (38 yrs) Name: ? BARBI IVEY ?Visit Date: 07/12/2014 10:21 am Performed By Performed By: ?George Singletary RDMS Associate: ? Reagan Goetz MD Attending: ? Johana MILNER, Arlen Ruth Referred By: ? SOWMYA INGRAM MD Service(s) Provided ??URETRO - Retroperitoneal Complete - [id number] ? [id number] Indications ??? new stones Comparison Renal/bladder ultrasound [...] 07/12/2014 12:24 pm) Patient Info ID #: [id number] : [birth year] (38 yrs) Name: BARBI IVEY Visit Date: 07/12/2014 10:21 am Performed By Performed By: George Singletary RDMS Associate: Reagan Goetz MD Attending: Arlen Vaughn MD Referred By: SOWMYA INGRAM MD Service(s) Provided URETRO - Retroperitoneal Complete - [id number] Indications ? new stones Comparison Renal/bladder ultrasound [...] Ordered By: SOWMYA INGRAM JR ? MR#: [id number] ?LOC: ??5B ? /Sex: ??1975 (38 years), [...] Metabolic Panel (non-fasting) (01/11/2014 12:48 PM EDT) [facility] Glucose 97 60 - 199 mg/dL CERNER MILLENNIUM Comment:Diabetes: >=200 mg/d L plus symptoms Blood Urea Nitrogen 11 8 - 18 mg/dL CERNER MILLENNIUM Creatinine 0.79 0.70 - 1.20 mg/dL CERNER MILLENNIUM Comment: Please note that the pediatric reference intervals supplied above were not validated at [facility]. Results from pediatric patients should be interpreted [...] Sowmya Ingram Jr., MD CHEMISTRY ORDERABL ES [facility] documented in this encounter Visit Diagnoses Diagnosis Urolithiasis- Primary Urinary calculus, unspecified Urolithiasis Urinary calculus, unspecified documented in this encounter Care Teams Secretary Of Police Relationship Specialty Start Date End Date Jim Wei MD [address] [place] [address] PCP - General 07/23/10 10/08/15 [facility] [address] [address] [place] [address] Postal InspectorPrepared Foods Team Leader Medicine 03/26/11 documented as of this encounter
--- OUTSIDE RECORDS SUMMARY | 2024-06-02 16:45 | XMS_ITS | Encounter Summary ---
Author Organization [facility] Address [facility] Marib[address] mu[address] [address] Care Team Providers Care Crib Tender Name Role Phone Jim Wei MD Primary Care Provider [phone] Reason for Visit * Reason Comments Nephrolithiasis Encounter Details Date Type Department Care Team (Latest Contact Info) Description 07/12/2014 10:30 AM EST Office [place] [address] CLINIC, Sowmya Baez Jr., MD [facility] [place] [address] Nephrolithiasis Discharge Disposition: Home Social History Tobacco [...] ? am) Patient Info ID #: ? [id number] ?: ??[birth year] (39 yrs) Name: ? BARBI Styles GILBERT ?Visit Date: 01/10/2015 09:31 am Performed By Performed By: ?George Singletary RDMS Attending: ? Bob MILNER, Meet Lundy Referred By: ? SOWMYA INGRAM MD Service(s) Provided ??URETRO - Retroperitoneal Complete - [id number] ? [id number] Indications ??? stone growth Comparison Outside CT [...] 01/10/2015 10:21 am) Patient Info ID #: [id number] : [birth year] (39 yrs) Name: BARBI IVEY Visit Date: 01/10/2015 09:31 am Performed By Performed By: George Singletary RDMS Attending: Meet Rojas MD Referred By: SOWMYA INGRAM MD Service(s) Provided URETRO - Retroperitoneal Complete - [id number] Indications ? stone growth Comparison Outside CT [...] 01/10/2015 10:21 am Sowmya Ingram Jr., MD [facility] GEN ORDERAB LES * Urine culture Clean Catch Urine (07/12/2014 1:19 PM EST) Urine Culture ? Patient Name: BARBI IVEY ? Ordered By: SOWMYA INGRAM JR ? MR#: [id number] ?LOC: ??5B ? /Sex: ?? 5 (38 [...] Jr., MD MICROBIOLOGY - GEN [facility]AL [facility]ABLES [facility] * (ABNORMAL) Urinalysis with microscopic (07/12/2014 1:19 [...] Urine Dipstick Cloudy(A) Clear CERNER MILLENNIUM Specific [place] Urine Automated 1.011 1.002 - 1.030 CERNER [...] kidney documented in this encounter Care Teams Crib Tender Relationship Specialty Start Date End Date Jim Wei MD [address] [place] [address] PCP - General 07/23/10 10/08/15 [facility] [address] [address] [place] [address] Manager WeldingFood Assembler Commissary Kitchen Medicine 03/26/11 documented as of this encounter
--- OUTSIDE RECORDS SUMMARY | 2024-06-02 16:45 | XMS_ITS | Encounter Summary ---
Author Organization [facility] Address [facility] [address] [place] [address] Care Team Providers Care Survey Party Chief Name Role Phone Jim Wei MD Primary Care Provider [phone] Encounter Details Date Type Department Care Team (Late st Contact Info) Description 01/13/2014 [place] [phone] Nubia Perez MD [facility] [place] [address] Social History Tobacco Use Types Packs/Day Years [...] on filedocumented in this encounter Care Teams Survey Party Chief Relationship Specialty Start Date End Date Jim Wei MD [address] [place] [address] PCP - General 07/23/10 10/08/15 [facility] [address] [address] [place] [address] Soft Mud MolderPyridine Recovery Operator Medicine 03/26/11 documented as of this encounter
--- OUTSIDE RECORDS SUMMARY | 2024-06-02 16:45 | XMS_ITS | Encounter Summary ---
Author Organization [facility] Address [facility] Maribeth mu[address] [address] Care Team Providers Care Metaphysics Teacher Name Role Phone Jim Wei MD Primary Care Provider [phone] Encounter Details Date Type Department Care Team (Latest Contact Info) Description 03/16/2013 Orders Only [place] [phone] Matthew Melvin MD [facility] [place] [address] Nephrolithiasis (Primary Dx) Social History Tobacco Use [...] Metabolic Panel (non-fasting) (03/16/2013 11:11 AM EDT) [facility] Glucose 78 60 - 199 mg/dL CERNER MILLENNIUM Comment:Diabetes: >=200 mg/d L plus symptoms Blood Urea Nitrogen 12 8 - 18 mg/dL [facility] MILLEN[facility]UM Creatinine 0.60(L) 0.70 - 1.20 mg/dL CERNER MILLENNIUM Comment: Please note that the pediatric reference intervals supplied above were not validated at [facility]. Results from pediatric patients [...] kidney documented in this encounter Care Teams Metaphysics Teacher Relationship Specialty Start Date End Date Jim Wei MD [address] [place] [address] PCP - General 07/23/10 10/08/15 [facility] [address] [address] [place] [address] Roving CarrierAmbulatory Care Nurse Medicine 03/26/11 documented as of this encounter
--- OUTSIDE RECORDS SUMMARY | 2024-06-02 16:46 | XMS_ITS | Encounter Summary ---
Author Organization [facility] Address [address] [place] [address] Care Team Providers Care Manager Math Name Role Phone Angelica Murphy TINY Primary Care Provider [phone] Reason for Visit * Reason Onset Date Comments Physical Therapy 09/17/2022 Encounter Details Date Type Department Care Team (Late st Contact Info) Description 09/17/2022 Telephone [facility] Orthopedics & Sport Medicine [address] [place] [address] Zoie Lovell, FANNY Physical Therapy [...] on filedocumented in this encounter Care Teams Manager Math Relationship Specialty Start Date End Date Angelica [place] [address] PCP - General 08/05/21 documented as of this encounter
--- OUTSIDE RECORDS SUMMARY | 2024-06-02 16:46 | XMS_ITS | Encounter Summary ---
[place] [address] Care Team Providers Care Manager Non Profit Name Role Phone Jim Wei MD Primary Care Provider [phone] Reason for Visit * Reason Onset Date Comments Post Procedure Call 06/17/2011 Encounter Details Date Type Department Care Team (Late st Contact Info) Description 06/17/2011 Telephone [place] [address] Huyen Luis RN Post Procedure Call Social [...] filedocumented in this encounter Care Teams Manager Non Profit Relationship Specialty Start Date End Date Jim Wei MD [address] [place] [address] PCP - General 07/23/10 10/08/15 [facility] [address] [address] [place] [address] Manager SummerLead Advisor Medicine 03/26/11 documented as of this encounter
--- OUTSIDE RECORDS SUMMARY | 2024-06-02 16:46 | XMS_ITS | Encounter Summary ---
Author Organization [facility] Address [address] [place] [address] Care Team Providers Care Horse Trainer Name Role Phone Angelica Murphy TINY Primary Care Provider [phone] Reason for Referral * Radiology Services (Routine/Next Available) - Authorization Not Required Specialty Diagnoses / Procedures Referred By Stephanie price Referred To Contact Diagnoses Radial styloid tenosynovitis (de quervain) Procedures [place] C-ARM WITH IMAGES [place] C-ARM MINI WITH IMAGES Sagar José MD [address] [place] [address] [facility] Referral ID Status Reason Start Date Expiration Date Visits Requested Visits Authorized [id number] Authorization Not Required 09/11/2022 1 1 Reason for Visit * Auth/Cert (Routine) Specialty Diagnoses / Procedures Referred By Stephanie price Referred To Contact Diagnoses Arthralgia of left lower leg Arthralgia of left lower leg [M25.562] Procedures [place] ARTHROSCOPY HIP W/LABRAL REPAIR [place] ARTHROSCOPY HIP W/ACETABULOPLASTY [place] HIP SCOPE/REMV BODY,SYNOVECTOMY [place] HIP SCOPE/REMV BODY,PLASTY/RESECTN ARTHROSCOPY W/ LABRAL REPAIR ARTHROSCOPY HIP W/ACETABULOPLASTY ARTHROSCOPY, HIP, SURGICAL; W/SYNOVECTOMY CHONDROPLASTY, HIP, ARTHROSCOPIC Referral ID Status Reason Start Date Expiration Date Visits Re quested Visits Authorized [id number] 1 1 Encounter Details Date Type Department Care Team (Latest Contact Info) Description 09/12/2022 6:27 EST - 09/12/2022 23:59 EST Hospital Encounter [facility] Xray [address] [place] [address] Radial styloid tenosynovitis (de quervain) Discharge Disposition: [...] quervain) documented in this encounter Care Teams Horse Trainer Relationship Specialty Start Date End Date Angelica Murphy FNP [address] [place] [address] PCP - General 08/05/21 documented as of this encounter
--- OUTSIDE RECORDS SUMMARY | 2024-06-02 16:46 | XMS_ITS | Encounter Summary ---
[place] [address] Care Team Providers Care Ornamental Ironworking Supervisor Name Role Phone Belem Mike MD Primary Care Provider [phone] Reason for Visit * Reason Comments Joint Pain Encounter Details Date Type Department Care Team ([facility] Contact Info) Description 09/05/2011 11:45 AM EST [place] [address] Angelina Medina, SEAM TAPER MACHINE [address] [facility] [address]1 [place] [address] Right shoulder pain; halfway current use of [...] 40 minutes with 25 minutes spent in [id number] education and counseling regarding options for managing [...] (SEND OUT) Routine 09/05/2011 1:00 PM EST tank terminal gauger current use of opiate analgesic documented in [...] employment-relate d drug testing. Test Performed by: Heidi Shaulis [address] [address] Clock And Watch Hands Mounter: Lizet Cid, Ph.D. [facility] Urine specimen (specimen) 09/05/2011 1:00 PM EST 09/05/2011 1:56 PM EST Nacho Almonte MD URINE ORDERABLES Performing Organization Address City/State/ZIP Co sd Phone Number [facility] documented in this encounter Visit Diagnoses Diagnosis Right shoulder pain Pain in joint, shoulder region halfway current use of opiate analgesic Encounter for long-term (current) use of other medications documented in this encounter Care Teams Ornamental Ironworking Supervisor Relationship Specialty Start Date End Date Belem Mike MD [address] [place] [address] PCP - General 07/23/10 10/08/15 [facility] [address] [address] [place] [address] Clerk ManagerProfessor/Nurse Anesthetist Medicine 03/26/11 documented as of this encounter
--- OUTSIDE RECORDS SUMMARY | 2024-06-02 16:46 | XMS_ITS | Encounter Summary ---
Author Organization [facility] Address [address] [place] [address] Care Team Providers Care Enamel Machine Operator Name Role Phone Angelica Murphy TINY Primary Care Provider [phone] Reason for Visit * Auth/Cert (Routine) Specialty Diagnoses / Procedures Referred By Stephanie price Referred To Contact Diagnoses Arthralgia of left lower leg Arthralgia of left lower leg [M25.562] Procedures [place] ARTHROSCOPY HIP W/LABRAL REPAIR [place] ARTHROSCOPY HIP W/ACETABULOPLASTY [place] HIP SCOPE/REMV BODY,SYNOVECTOMY [place] HIP SCOPE/REMV BODY,PLASTY/RESECTN ARTHROSCOPY W/ LABRAL REPAIR ARTHROSCOPY HIP W/ACETABULOPLASTY ARTHROSCOPY, HIP, SURGICAL; W/SYNOVECTOMY CHONDROPLASTY, HIP, ARTHROSCOPIC Referral ID Status Reason Start Date Expiration Date Visits Re quested Visits Authorized [id number] 1 1 Encounter Details Date Type Department Care Team (Late st Contact Info) Description 09/12/2022 7:46 EST Anesthesia Event [facility] Operating Room [address] [place] [address] Carlos Gold MD [address] [place] [address] Gibran Clements MD [address] [place] [address] Anesthesia Record Procedure Summary Procedure [...] Details Placement Removal Wound 09/12/22; 724; Inci aprker; Anterior, Left; Hip; Y; Full thickness 09/12/22 0725 by Kecia Walters RN Peripheral IV 09/12/22; 0723; 20; Posterior, Right; Hand; Inserted by RN; 1; None; 2% Chlorhexidine with IPA; 09/12/22; 1215; Per order; No complications 09/12/22 0723 by Ann Perez RN 09/12/22 1215 by Sahara Glover RN Non-Surgical Airway 09/12/22; 0801 (shekhar lau via procedure documentation); 09/12/22; 0903 09/12/22 0801 [...] [facility] Vit[facility] Value Taken Time BP 97/57 09/12/22 [...] Evaluation - Carlos Gold MD - 09/11/2022 0856 EST Anesthesia Preprocedure Evaluation Patient Medical History, [...] SURGERY Right Past Anesthetics 02/01/15 urology at [facility] Mask Ventilation: Easy (1); ETT Type: Cuffed, [...] EST documented in this encounter Results * [place] AN ELECTIVE ENDOTRACHEAL AIRWAY (09/12/2022 7:54 EST) Narrative [facility] POINT OF CARE - 09/12/2022 7:54 [...] Cuffed: yes Successful intubation technique: video laryngoscopy [facility] Facilitating devices/methods: intubating stylet Endotracheal tube insertion [...] mg documented in this encounter Care Teams Enamel Machine Operator Relationship Specialty Start Date End Date Angelica Murphy F[place] [address] PCP - General 08/05/21 documented as of this encounter
--- OUTSIDE RECORDS SUMMARY | 2024-06-02 16:46 | XMS_ITS | Encounter Summary ---
[place] [address] Care Team Providers Care Superintendent Stations Name Role Phone Jim Wei MD Primary Care Provider [phone] Reason for Visit * Reason Onset Date Comments Post Procedure Call 06/17/2011 Encounter Details Date Type Department Care Team (Late st Contact Info) Description 06/17/2011 Telephone [place] [address] Huyen Luis RN Post Procedure Call Social [...] Miscellaneous Notes * Telephone Encounter - Huyen uLis RN - 06/17/2011 3:45 PM EDT I have attempted without success to contact this patient by phone to return their call. Message left for patient to call back regarding her response. documented in this encounter Plan of Treatment Not on file documented as of this encounter Visit Diagnoses Not on filedocumented in this encounter Care Teams Superintendent Stations Relationship Specialty Start Date End Date Jim Wei MD [address] [place] [address] PCP - General 07/23/10 10/08/15 [facility] [address] [address] [place] [address] Curve Saw OperatorKnitting Machine Tender Medicine 03/26/11 documented as of this encounter
--- OUTSIDE RECORDS SUMMARY | 2024-06-02 16:46 | XMS_ITS | Encounter Summary ---
Author Organization [facility] Address [address] [place] [address] Care Team Providers Care Metal Bench Patternmaker Name Role Phone Angelica Murphy TINY Primary Care Provider [phone] Encounter Details Date Type Department Care Team (Late st Contact Info) Description 06/26/2023 Lab Requisition [facility] Pathology & Laboratory Medicine - [facility] [address] [place] [address] Vilma Prasad, DO [address] [place], [place] [id number] Diverticulosis of large intestine without perforation or [...] management options, if applicable. 07/01/2023 14:46 EDT [facility] Final Diagnosis A. SMALL INTESTINE, [...] - Reactive squamous mucosa. 07/01/2023 14:46 EDT [facility] Diagnosis Comment ANTIBODY(CLONE)(BLOCK ):RESULT H pylori (Rabbit Monoclonal (SP48), [place]) (E1): Negative NOTE: One or more of [...] performance characteristics have been determined by [facility] and/or by the referring laboratory. The [...] high complexity clinical laboratory testing. 07/01/2023 14:46 [facility] Attestation By the signature below, the attending physician certifies that they have 1) personally conducted a gross and/or microscopic examination of the described specimen(s), and/or personally interpreted the results of laboratory testing of the described specimen(s), and 2) personally rendered or confirmed the above diagnosis. 07/01/2023 14:46 [facility] at 1446 Clinical History Gastritis, GERD, diverticulosis; clinical diagnosis code: K21.9, M79.7, I10, J30.9, G43.909, A69.20, Z12.11, K57.30 07/01/2023 14:46 [facility] Gross Description A. Received in [...] NATO LUCIANO(ASCP) 06/29/2023 7:39 07/01/2023 14:46 EDT [facility] Performing Lab [facility] 07/01/2023 14:46 EDT [facility] Scanned Images 07/01/2023 14:46 EDT [facility] Tissue ESOPHAGEAL STRUCTURE / Unknown [...] 17:33 EDT Vilma Prasad DO PATHOLOGY ORDERABLES [facility] [address] [place] [address] documented in this encounter Visit Diagnoses Diagnosis Diverticulosis of large intestine without perforation or abscess without bleeding Diverticulosis of colon (without mention of hemorrhage) Encounter for screening for malignant neoplasm of colon Special screening for malignant neoplasms, colon Lyme disease, unspecified Allergic rhinitis, unspecified Fibromyalgia Mylagia and myositis, unspecified Gastro-esophageal reflux disease without esophagitis Esophageal reflux documented in this encounter Care Teams Metal Bench Patternmaker Relationship Specialty Start Date End Date Angelica Murphy [place] [address] PCP - General 08/05/21 documented as of this encounter
--- OUTSIDE RECORDS SUMMARY | 2024-06-02 16:46 | XMS_ITS | Encounter Summary ---
Author Organization [facility] Address [facility] [address] [place] [address] Care Team Providers Care 3D Modeler Name Role Phone Jim Wei MD Primary Care Provider [phone] Reason for Visit * Reason Comments Medication Refill Encounter Details Date Type Department Care Team (Late st Contact Info) Description 05/09/2011 [place] [address] Nacho Almonte MD [facility] [place] [address] Right shoulder pain (Primary Dx) Social History [...] Refill Request Phone Note Patient: Barbi Ivey [id number] Received call from Barbi Ivey requesting refill [...] she have further questions or concerns. Deana Perez LPN documented in this encounter Plan of Treatment Not on file documented as of this encounter Visit Diagnoses Diagnosis Right shoulder pain- Primary Pain in joint, shoulder region documented in this encounter Care Teams 3D Modeler Relationship Specialty Start Date End Date Jim Wei MD [address] [place] [address] PCP - General 07/23/10 10/08/15 [facility] [address] [address] [place] [address] Coke Crane OperatorHardwood Finisher Medicine 03/26/11 documented as of this encounter
--- OUTSIDE RECORDS SUMMARY | 2024-06-02 16:46 | XMS_ITS | Encounter Summary ---
Author Organization [facility] Address [facility] [address] [place] [address] Care Team Providers Care Diesel Engine Mechanic Apprentice Name Role Phone Jim Wei MD Primary Care Provider [phone] Encounter Details Date Type Department Care Team (Late st Contact Info) Description 06/16/2011 Orders [place] [address] Nacho Almonte MD [facility] [place] [address] Social History Tobacco Use Types Packs/Day Years [...] is a non-reportable exam. Nacho Almonte MD [facility] FILM LIBRARY ORD ERABLES RAD [address] [facility] [place] [address] documented in this encounter Visit Diagnoses Not on filedocumented in this encounter Care Teams Diesel Engine Mechanic Apprentice Relationship Specialty Start Date End Date Jim Wei MD [address] [place] [address] PCP - General 07/23/10 10/08/15 [facility] [address] [address] [place] [address] Head Of CytogeneticsCubing Machine Tender Medicine 03/26/11 documented as of this encounter
--- OUTSIDE RECORDS SUMMARY | 2024-06-02 16:46 | XMS_ITS | Encounter Summary ---
Author Organization [facility] Address [address] [place] [address] Care Team Providers Care Irrigator Gravity Flow Name Role Phone Angelica Murphy TINY Primary Care Provider [phone] Encounter Details Date Type Department Care Team [...] on filedocumented in this encounter Care Teams Irrigator Gravity Flow Relationship Specialty Start Date End Date Angelica [place] [address] PCP - General 08/05/21 documented as of this encounter
--- OUTSIDE RECORDS SUMMARY | 2024-06-02 16:46 | XMS_ITS | Encounter Summary ---
Author Organization [facility] Address [facility] [address] [address] Care Team Providers Care Recruitment Assistant Name Role Phone Jim Wei MD Primary Care Provider [phone] Reason for Referral * Consultation (Routine) - Complete - Patient Will Schedule External Appt Specialty Diagnoses / Procedures Referred By Stephanie t Referred To Contact Acupuncture Diagnoses Right shoulder pain Jared Almonte MD [facility] [place] [address] Referral ID Status Reason Start Date Expiration Date Visits Requested Visits Authorized [id number] Complete - Patient Will Schedule External Appt Consult, Test & Treat 06/02/2011 2011 8 8 Reason for Visit * Reason Comments Joint Pain Right side Encounter Details Date Type Department Care Team (Late st Contact Info) Description 06/02/2011 9:15 AM EDT Follow-Up [place] [address] Jared Almonte MD [facility] [place] [address] Right shoulder pain (Primary Dx) Discharge Disposition: [...] point injection. Approximately 15 minutes of direct yaeo-hs-yjpm time was spent with the patient which [...] ed drug testing. Test Performed by: [place] [address] Stoker Installer: Lizet Cid, Ph.D. ASTER FREDERICK Urine specimen (specimen) 06/02/2011 10:00 AM EDT 06/02/2011 4:15 PM EDT Jared Alomnte MD LAB SEND OUT ORDERAB LES ASTER [...] ?ng/mL ??<100 If heroin use suspected, test 36009, 9-ooku-pbyvty-mo rphine (6-JONA) heroin metabolite, can be added at an additional charge. ??Oxycodone ?Negative ?ng/mL ??<100 ??Oxymorphone ?Negative ?ng/mL ??<100 Test Performed by: [place] [address] Stoker Installer: iLzet Cid, Ph.D. ASTER BENAVIDEZJOHNNA Urine specimen (specimen) 06/02/2011 10:00 AM EDT 06/02/2011 4:15 PM EDT Jared Almonte MD URINE ORDERABLES Performing Organization Address City/State/[place] Phone Number ASTER FREDERICK documented in this encounter Visit Diagnoses Diagnosis Right shoulder pain- Primary Pain in joint, shoulder region documented in this encounter Care Teams Recruitment Assistant Relationship Specialty Start Date End Date Jim Wei MD [address] [place] [address] PCP - General 07/23/10 10/08/15 [facility] [address] [address] [place] [address] Vocational CoordinatorStack Clerk Medicine 03/26/11 documented as of this encounter
--- OUTSIDE RECORDS SUMMARY | 2024-06-02 16:46 | XMS_ITS | Encounter Summary ---
Author Organization [facility] [place] [address] Care Team Providers Care Remote Sensing Scientist Name Role Phone Jim Wei MD Primary Care Provider [phone] Encounter Details Date Type Department Care Team (Late st Contact Info) Description 04/02/2011 9:46 AM EDT - 04/02/2011 11:59 PM EDT Hospital En[place] [address] Urolithiasis Social History Tobacco Use Types Packs/Day [...] 04/02/2011 10:26 am) Patient Info ID: ? [id number] ? : ??[birth year] (35 yrs) Name: ? BARBI IVEY ? Visit Date: 04/02/2011 10:20 am Procedures URETRO - Retroperitoneal Complete - [id number] ? [id number] Indications Urolithiasis Right Kidney Size (cm) ?L: [...] Final 04/02/2011 10:26 am) Patient Info ID: [id number] : [birth year] (35 yrs) Name: BARBI IVEY Visit Date: 04/02/2011 10:20 am Procedures URETRO - Retroperitoneal Complete - [id number] Indications Urolithiasis Right Kidney Size (cm) L: [...] unspecified documented in this encounter Care Teams Remote Sensing Scientist Relationship Specialty Start Date End Date Jim Wei MD [address] [place] [address] PCP - General 07/23/10 10/08/15 [facility] [address] [address] [place] [address] Fitness And Wellness DirectorConsumer Lender Medicine 03/26/11 documented as of this encounter
--- OUTSIDE RECORDS SUMMARY | 2024-06-02 16:46 | XMS_ITS | Encounter Summary ---
[place] [address] Care Team Providers Care Fur Cutter Name Role Phone Jim Wei MD Primary Care Provider [phone] Encounter Details Date Type Department Care Team (Late st Contact Info) Description 08/06/2011 Abstract [place] [address] Benigno Montilla MD [facility] [place] [address] Social History Tobacco Use Types Packs/Day Years [...] on filedocumented in this encounter Care Teams Fur Cutter Relationship Specialty Start Date End Date Jim Wei MD [address] [place] [address] PCP - General 07/23/10 10/08/15 [facility] [address] [address] [place] [address] Laundry AgentTherapist Phys Medicine 03/26/11 documented as of this encounter
--- OUTSIDE RECORDS SUMMARY | 2024-06-02 16:46 | XMS_ITS | Encounter Summary ---
Author Organization [facility] Address [facility] [address] [place] [place] [address] Care Team Providers Care Landscaping And Groundskeeping Laborer Name Role Phone Jim Wei MD Primary Care Provider [phone] Reason for Visit * Reason Comments Nephrolithiasis Encounter Details Date Type Department Care Team (Late st Contact Info) Description 03/16/2012 9:40 AM EDT [place] [address] Sowmya Ingram Jr., MD [facility] [place] [address] Calculus of kidney; History of kidney stones [...] EDT) Glucose 84 60 - 199 mg/dL [facility] Comment:Diabetes: >=200 mg/d L plus symptoms Blood Urea Nitrogen 13 8 - 18 mg/dL [facility] Creatinine 0.69(L) 0.70 - 1.20 mg/dL [facility] Comment: Please note that the pediatric reference intervals supplied above were not validated at [facility]. Results from pediatric patients should be interpreted [...] Sowmya Ingram Jr., MD CHEMISTRY ORDERABL ES [facility] * Urine culture Clean Catch Urine (03/16/2012 11:15 AM EDT) Urine Culture ? Patient Name: CECILE IVEY ? Ordered By: SOWMYA INGRAM JR ? MR#: [id number] ?LOC: ??5B ? /Sex: ?? 5 (36 [...] above were not validated at [facility]. Results from pediatric patients should be interpreted [...] Ingram Jr., MD CHEMISTRY ORDERABL ES [facility] documented in this encounter Visit Diagnoses Diagnosis Calculus of kidney History of kidney stones Personal history of urinary calculi documented in this encounter Care Teams Landscaping And Groundskeeping Laborer Relationship Specialty Start Date End Date Jim Wei MD [address] [place] [address] PCP - General 07/23/10 10/08/15 [facility] [address] [address] [place] [address] In Service Education TeacherNursing Unit Clerk Medicine 03/26/11 documented as of this encounter
--- OUTSIDE RECORDS SUMMARY | 2024-06-02 16:46 | XMS_ITS | Encounter Summary ---
Author Organization [facility] Address [facility] [address] [place] [address] Care Team Providers Care Journalism Teacher Name Role Phone Jim Wei MD Primary Care Provider [phone] Reason for Visit * Reason Comments Right Shoulder Pain Encounter Details Date Type Department Care Team (Late st Contact Info) Description 05/14/2011 8:45 AM EDT [place] [address] Nacho Almonte MD [facility] [place] [address] Right shoulder pain (Primary Dx) Discharge Disposition: [...] We spent approximately 25 minutes of direct hvlq-pa-oisf time with the patient and her case [...] region documented in this encounter Care Teams Journalism Teacher Relationship Specialty Start Date End Date Jim Wei MD [address] [place] [address] PCP - General 07/23/10 10/08/15 [facility] [address] [address] [place] [address] Global Creative ChairmanPublic Address Servicer Medicine 03/26/11 documented as of this encounter
--- OUTSIDE RECORDS SUMMARY | 2024-06-02 16:46 | XMS_ITS | Encounter Summary ---
Author Organization [facility] Address [facility] [place] [address] Care Team Providers Care Capping Machine Operator Name Role Phone Jim Wei MD Primary Care Provider [phone] Encounter Details Date Type Department Care Team (Late st Contact Info) Description 06/16/2011 Orders Only [place] [address] Nacho Almonte MD [facility] [place] [place] [address] Social History Tobacco Use Types Packs/Day Years [...] on filedocumented in this encounter Care Teams Capping Machine Operator Relationship Specialty Start Date End Date Jim Wei MD [address] [place] [address] PCP - General 07/23/10 10/08/15 [facility] [address] [address] [place] [address] Mail Sorter And DeliveryAircraft Engine Installer Medicine 03/26/11 documented as of this encounter
--- OUTSIDE RECORDS SUMMARY | 2024-06-02 16:46 | XMS_ITS | Clinical Summary ---
Author Organization [facility] Address [address] [place] [address] Care Team Providers Care Residential Roofer Helper Name Role Phone Angelica Murphy TINY Primary Care Provider [phone] Allergies Active Allergy Reactions Criticality Noted Date [...] Overview: Added automatically from request for surgery [id number] Surgical History Surgery Date Site/Laterality Comments SHOULDER [...] season) 2023 Medical Devices Implanted Type Area Funeral Driver Device Identifier Shelf Expiration Date Model / Serial / Lot Qulin Suture Fiberwire 1.8mm Q Fix [id number] - [id number] Implanted:Qty : 1 on 09/12/2022 by Farzad Garza MD at [facility] Qulin Left: Hip [employer] [id number] 05/29/2025 [id number] / / [id number] Qulin Suture Fiberwire 1.8mm Q Fix [id number] - [id number] Implanted:Qty : 1 on 09/12/2022 by Farzad Garza MD at [facility] Qulin Left: Hip [employer] [id number] 05/16/2025 [id number] / / [id number] Qulin Suture Fiberwire 1.8mm Q Fix [id number] - [id number] Implanted:Qty : 1 on 09/12/2022 by Farzad Garza MD at [facility] Qulin Left: Hip [employer] [id number] 05/16/2025 [id number] / / [id number] Advance Directives For more information, please contact: [phone] * Full Code (Latest Code Status on File) Date Activated Date Inactivated Comments 09/12/2022 6:39 09/12/2022 14:41 Question Answer Comments When the patient has NO PULSE: Full Code / CPR Who Made the Decision? Patient Care Teams Residential Roofer Helper Relationship Specialty Start Date End Date Angel[place] [address] PCP - General 08/05/21
--- OUTSIDE RECORDS SUMMARY | 2024-06-02 16:46 | XMS_ITS | Encounter Summary ---
Author Organization [place] [address] Care Team Providers Care Parole Hearing Officer Name Role Phone Jim Wei MD Primary Care Provider [phone] Reason for Visit * Reason Onset Date Comments Other 06/02/2011 Encounter Details Date Type Department Care Team (Late st Contact Info) Description 06/02/2011 [place] [address] Social, Worker, CHEMICAL LABORATORY TECHNICIAN Other Social History Tobacco Use Types Packs/Day [...] wc # CCM incorrectly recorded the wc machine adjuster's phone number as: [phone] when the Correct phone number for this machine adjuster: Bob Jose is: [phone]. Pain clinic RN phoned CCM to relay this error which is now rectified. P: CCM will be available for f/u intervention PRN. 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 Almonte [id number] Current Work Status: OOW since November 2010 Last day worked November 2010 Diagnosis:right shoulder pain Symptoms: shoulder pain, headaches, neck pain Surgery: shoulder surgery Date: 04-25-2011 Surgeon: Dr. Fleming, [facility] Current Treatment Plan: Pt is currently in PT tx 2 x week,and continues to be followed by , and her PCP. Pt is in the process of confirming if PCP will assume the role of prescriber for her pain management tx needs. Other pertinent information: Pt is currently receiving wage replacements from the [employer] insurance, but this only started a few weeks ago, and pt worked up until November 2010. 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 Pt is unsure if and when she will be recontacted by [employer] to take on another home care pt needing BUFFING LINE SET UP WORKER care. Status of Workers Comp claim: Active and Open Community Theater Actor: Not at this time. MMI: No Plan: [...] potential for a DAVIDSON in the future. [facility] introduced myself to pt explaining my role, and noting plan for me to f/u w/ her wc insurance to translate the tx plan needs, advocating for the Needed authorization. [facility] provided pt w/ my card and a [facility] WCC brochure, inviting her to f/u w/me if she incurs any problems w/ the wc authorization needs from today's appt. [facility] made a copy of the prescriptions for the acupuncture and her medication, noting plan to fax such to the insurance. [facility] phoned NCM: Kylee Cm# [phone] relaying the above tx recommendations. [facility] requested 's note from his last appt, noting that she did not receive it yet. [facility] provided her w/ the f/u appt date for the TPI's noting plan to fax her today's note, wc form, and copy of the prescriptions needing authorization. [facility] relayed plan to f/u w/ pt at the 07-02 appt to assess further needs warranting CCM intervention,[facility]iting [facility] prior to that appt [...] on filedocumented in this encounter Care Teams Parole Hearing Officer Relationship Specialty Start Date End Date Jim Wei MD [address] [place] [address] PCP - General 07/23/10 10/08/[address] [facility] [address] [address] [place] [address] Financial Institution Vice PresidentAudio Engineer Medicine 03/26/11 documented as of this encounter
--- OUTSIDE RECORDS SUMMARY | 2024-06-02 16:46 | XMS_ITS | Encounter Summary ---
[place] [address] Care Team Providers Care Hazardous Waste Remover Name Role Phone Jim Wei MD Primary Care Provider [phone] Encounter Details Date Type Department Care Team (Late st Contact Info) Description 04/01/2011 [place] [address] Samina Figueroa, RN Social History Tobacco Use [...] on filedocumented in this encounter Care Teams Hazardous Waste Remover Relationship Specialty Start Date End Date Jim Wei MD [address] [place] [address] PCP - General 07/23/10 10/08/15 [facility] [address] [address] [place] [address] Production HardenerGeographic Information System Analyst Medicine 03/26/11 documented as of this encounter
--- OUTSIDE RECORDS SUMMARY | 2024-06-02 16:46 | XMS_ITS | Encounter Summary ---
[place] [address] Care Team Providers Care Manager Express Name Role Phone Jim Wei MD Primary Care Provider [phone] Encounter Details Date Type Department Care Team (Late st Contact Info) Description 07/21/2011 Notes [place] [address] Alisha Alcala RN Social History Tobacco Use [...] EST PA request faxed from Emile Celestin [facility] for Cymbalta prescribed by Dr. Almonte for Ms. Ivey's shoulder pain. Unable to reach her electrical contacts adjuster, Mr. Garcia, as the number was incorrect. Call placed to her sample case porter, Kylee Otoole, and she will call for the PA. She also gave me Mr. Garcia's correct number and I will contact Flory Simental to amend her note. documented in this encounter Plan of Treatment Not on file documented as of this encounter Visit Diagnoses Not on filedocumented in this encounter Care Teams Manager Express Relationship Specialty Start Date End Date Jim Wei MD [address] [place] [address] PCP - General 07/23/10 10/08/15 [facility] [address] [address] [place] [address] Personal Care WorkerTube Blower Medicine 03/26/11 documented as of this encounter
--- OUTSIDE RECORDS SUMMARY | 2024-06-02 16:46 | XMS_ITS | Encounter Summary ---
Author Organization [facility] Address [facility] [address] [place] [address] Care Team Providers Care State Superintendent Of Schools Name Role Phone Jim Wei MD Primary Care Provider [phone] Encounter Details Date Type Department Care Team (Late st Contact Info) Description 05/28/2011 Notes [place] [address] Nacho Almonte MD [facility] [place] [address] Social History Tobacco Use Types Packs/Day Years [...] on filedocumented in this encounter Care Teams State Superintendent Of Schools Relationship Specialty Start Date End Date Jim Wei MD [address] [place] [address] PCP - General 07/23/10 10/08/15 [facility] [address] [address] [place] [address] Patriot Missile Air Defense ArtilleryTurn Supervisor Medicine 03/26/11 documented as of this encounter
--- OUTSIDE RECORDS SUMMARY | 2024-06-02 16:46 | XMS_ITS | Encounter Summary ---
Author Organization [facility] Address [facility] [place] [address] Care Team Providers Care Financial Advisor Name Role Phone Arlen Ryan ND Primary Care Provider + Encounter Details Date Type Department Care Team (Late st Contact Info) Description 07/11/2009 Orders Only Urology at [facility] [place] [address] Emeka Hernandez Jr., MD [facility] [place] [place] [address] Social History Tobacco Use Types Packs/Day Years [...] (07/11/2009 9:29 AM EST) Surgical Pathology Report [id number] ? Location: [facility] The signing pathologist has (i) examined [...] The Report of Stone Analysis, order # [id number], has been received from the [facility], [address], [place], [place] [address]. For the full text of the [place] report please refer to Non-DH Documentation Pathology in the Clinical Information System (CIS). ASTER FREDERICK 07/11/2009 9:29 AM EST Emeka Hernandez Jr., MD PATHOLOGY/CYTOLOGY ORDERABLES ASTER FREDERICK documented in this encounter Visit Diagnoses Not on filedocumented in this encounter Care Teams Financial Advisor Relationship Specialty Start Date End Date Arlen Ryan ND PCP - General Naturopathic Medicine 04/09/16 [facility] [address] [address] [place] [address] Natural Resource OfficerSupervisor Floor Assembly Medicine 03/26/11 documented as of this encounter
--- OUTSIDE RECORDS SUMMARY | 2024-06-02 16:46 | XMS_ITS | Encounter Summary ---
Author Organization [facility] Address [address] [place] [address] Care Team Providers Care Spine Nurse Name Role Phone Angelica Murphy TINY Primary Care Provider [phone] Encounter Details Date Type Department Care Team (Late st Contact Info) Description 04/08/2023 Lab Requisition [facility] Pathology & Laboratory Medicine - [facility] [address] [place] [address] Outr Resulting Lab, Provider Social History Tobacco [...] Lyme Ab Negative Negative 04/09/2023 10:52 EDT [facility] Blood VENOUS BLOOD / Unknown 04/08/2023 10:46 EDT 04/08/2023 21:35 EDT Provider Outr Resulting Lab IMMUNOLOGY A ND SEROLOGY ORDERABLES [facility] [address] [place] [address] documented in this encounter Visit Diagnoses Not on filedocumented in this encounter Care Teams Spine Nurse Relationship Specialty Start Date End Date Angelica Murphy [place] [address] [place] [address] PCP - General 08/05/21 documented as of this encounter
--- OUTSIDE RECORDS SUMMARY | 2024-06-02 16:46 | XMS_ITS | Encounter Summary ---
Author Organization [facility] Address [facility] [address] [address] Care Team Providers Care Wheel Roller Name Role Phone Jim Wei MD Primary Care Provider [phone] Encounter Details Date Type Department Care Team (Late st Contact Info) Description 03/16/2012 [place] [address] Emeka Hernandez Jr., MD [facility] [place] [address] Calculus of kidney (Primary Dx) Social History [...] Metabolic Panel (non-fasting) (03/16/2012 9:21 AM EDT) [facility] Glucose 90 60 - 199 mg/dL [facility] Comment:Diabetes: >=200 mg/d L plus symptoms Blood Urea Nitrogen 11 8 - 18 mg/dL [facility] Creatinine 0.73 0.70 - 1.20 mg/dL [facility] Comment: Please note that the pediatric reference intervals supplied above were not validated at [facility]. Results from pediatric patients should be interpreted [...] MD CHEMISTRY ORDERABL ES Performing Organization Address City/State/[facility] Co la Phone Number [facility] documented in this encounter Visit Diagnoses Diagnosis Calculus of kidney- Primary documented in this encounter Care Teams Wheel Roller Relationship Specialty Start Date End Date Jim Wei MD [address] [place] [address] PCP - General 07/23/10 10/08/15 [facility] [address] [address] [place] [address] Quality Control AssistantMedical Office Asst Medicine 03/26/11 documented as of this encounter
--- OUTSIDE RECORDS SUMMARY | 2024-06-02 16:46 | XMS_ITS | Encounter Summary ---
Author Organization [facility] Address [address] [place] [address] Care Team Providers Care Director Of Estate Name Role Phone Angelica Murphy TINY Primary Care Provider [phone] Reason for Referral * PT/OT/ST (Routine/Next Available) - Closed Specialty Diagnoses / Procedures Referred By Stephanie price Referred To Contact Diagnoses S/P hip arthroscopy Farzad Garza MD [address] [place] [id number] Referral ID Status Reason Start Date Expiration Date V isits Requested Visits Authorized [id number] Closed Specialty Services Required 09/25/2022 1 1 Question Answer Reason for Request: s/p left hip scope SITE Nishant Shrestha PT [phone] Reason for Visit * Reason Onset Date Comments Referral Request 09/25/2022 Encounter Details Date Type Department Care Team (Late st Contact Info) Description 09/25/2022 Telephone [facility] Orthopedics & Sport Medicine [address] [place] [address] Farzad Garza MD [address] [id number] Referral Request Social History Tobacco Use Types [...] Notes * Telephone Encounter - Maria L Kiesr LPN - 09/25/2022 1334 EST Nishant Shrestha PT called [facility] asking for a referral be sent. [...] Primary documented in this encounter Care Teams Director Of Estate Relationship Specialty Start Date End Date Angel[place] [address] PCP - General 08/05/21 documented as of this encounter
--- OUTSIDE RECORDS SUMMARY | 2024-06-02 16:46 | XMS_ITS | Encounter Summary ---
Author Organization [facility] Address [address] [place] [address] Care Team Providers Care Business Info Consultant Name Role Phone Angelica Murphy TINY Primary Care Provider [phone] Encounter Details Date Type Department Care Team (Late st Contact Info) Description 11/02/2023 Lab Requisition [facility] Pathology & Laboratory Medicine - [facility] [address] [place] [address] Jammie Jameson MD [address] [place] [address] [place] [address] Encounter for other general examination [...] types, PCR Negative Negative 11/09/2023 14:59 EDT [facility] Comment:No E6 or E7 mRNA is detected from HPV types 16,18,31,33,35,39,45,51,52,56,58,59,66, and 68 by rubber stamp dies inspector mediated amplification. Pap Test CERVIX UTERI STRUCTURE / Unknown 10/30/2023 12:21 EST 11/05/2023 16:05 EST Jammie Jameson MD MICROBIOLOGY - GENER AL ORDERABLES [facility] [address] [place] [address] * PAP TEST (10/30/2023 12:21 EST) Specimens A. Cervix and/or Endocervix , ThinPrep Imaging System with Manual Evaluation 11/09/2023 14:59 T [facility] Specimen Adequacy Satisfactory for Evaluation - transformation zone component present 11/09/2023 14:59 T [facility] General Categorization Negative for intraepithelial lesion or malignancy 11/09/2023 14:59 [facility] Attestation . 11/09/2023 14:59 [facility] at 1459 Clinical History See below 11/09/19 24 14:59 EDT [facility] HPV The result for the Human Papillomavirus (HPV) Detection-High Risk Types is Negative. No E6 or E7 mRNA is detected from HPV types 16,18,31,33,35,39 ,45,51,52,56,58,5 9,66, and 68 by rubber stamp dies inspector mediated amplification.Karen ting was performed on specimen [id number] and was resulted on 11/09/2023 1459 EDT by DAXA, LAB INSTRUMENT RESULTS IN 11/09/2023 14:59 EDT [facility] Performing Lab [facility] 11/09/2023 14:59 EDT [facility] Scanned Images 11/09/2023 14:59 EDT [facility] Pap Test CERVIX UTERI STRUCTURE / Unknown 10/30/2023 12:21 EST 11/02/2023 12:37 EST Jammie Jameson MD PATHOLOGY ORDERABLES [facility] [address] [place] [address] documented in this encounter Visit Diagnoses Diagnosis Encounter for other general examination documented in this encounter Care Teams Business Info Consultant Relationship Specialty Start Date End Date Angelica Murphy [place] [address] PCP - General 08/05/21 documented as of this encounter
--- OUTSIDE RECORDS SUMMARY | 2024-06-02 16:46 | XMS_ITS | Encounter Summary ---
[place] [address] Care Team Providers Care Lube Man Name Role Phone Jim Wei MD Primary Care Provider [phone] Reason for Visit * Reason Comments Other Encounter Details Date Type Department Care Team (Late st Contact Info) Description 06/11/2011 Telephone [place] [address] Shaunna Westbrook RN Other Social History Tobacco [...] Procedure Information Phone Note Patient: Barbi Ivey [id number] Barbi Ivey called today requesting information about [...] on filedocumented in this encounter Care Teams Lube Man Relationship Specialty Start Date End Date Jim Wei MD [address] [place] [address] PCP - General 07/23/10 10/08/15 [facility] [address] [address] [place] [address] Filter Plant SupervisorCardiovascular Specialist Medicine 03/26/11 documented as of this encounter
--- OUTSIDE RECORDS SUMMARY | 2024-06-02 16:46 | XMS_ITS | Encounter Summary ---
Author Organization [facility] Address [address] [place] [address] Care Team Providers Care Mixing And Molding Machine Operator Name Role Phone Angelica Murphy TINY Primary Care Provider [phone] Encounter Details Date Type Department Care Team [...] on filedocumented in this encounter Care Teams Mixing And Molding Machine Operator Relationship Specialty Start Date End Date Angelica Murphy [place] [address] PCP - General 08/05/21 documented as of this encounter
--- OUTSIDE RECORDS SUMMARY | 2024-06-02 16:46 | XMS_ITS | Referral Summary ---
Author Organization [facility] Address [address] [place] [address] Care Team Providers Care Senior Sustainability Consultant Name Role Phone Angelica Murphy TINY Primary Care Provider [phone] Allergies Active Allergy Reactions Criticality Noted Date [...] Overview: Added automatically from request for surgery [id number] Social History Tobacco Use Types Packs/Day Years [...] on file Medical Devices Implanted Type Area Industrial Painter Device Identifier Shelf Expiration Date Model / Serial / Lot Dewitt Suture Fiberwire 1.8mm Q Fix [id number] - [id number] Implanted:Qty : 1 on 09/12/2022 by Farzad Garza MD at [facility] Dewitt Left: Hip [employer] [id number] 05/29/2025 [id number] / / [id number] Dewitt Suture Fiberwire 1.8mm Q Fix [id number] - [id number] Implanted:Qty : 1 on 09/12/2022 by Farzad Garza MD at [facility] Dewitt Left: Hip [employer] [id number] 05/16/2025 [id number] / / [id number] Dewitt Suture Fiberwire 1.8mm Q Fix [id number] - [id number] Implanted:Qty : 1 on 09/12/2022 by Farzad Garza MD at [facility] Dewitt Left: Hip [employer] [id number] 05/16/2025 [id number] / / [id number] Advance Directives For more information, please contact: [phone] * Full Code (Latest Code Status on File) Date Activated Date Inactivated Comments 09/12/2022 6:39 09/12/2022 14:41 Question Answer Comments When the patient has NO PULSE: Full Code / CPR Who Made the Decision? Patient Care Teams Senior Sustainability Consultant Relationship Specialty Start Date End Date Angel[place] [address] PCP - General 08/05/21
--- OUTSIDE RECORDS SUMMARY | 2024-06-02 16:46 | XMS_ITS | Encounter Summary ---
Author Organization [facility] Address [facility] [address] [place] [address] Care Team Providers Care Tool Crib Clerk Name Role Phone Jim Wei MD Primary Care Provider [phone] Reason for Visit * Reason Comments Cervicalgia Encounter Details Date Type Department Care Team (Late st Contact Info) Description 06/16/2011 7:30 AM EDT Office [place] [address] Nacho Almonte MD [facility] [place] [address] Muscle spasms of head or neck (Primary [...] Post -Procedure Pain Log Patient: Barbi Ivey [id number] It is important for you to keep [...] 2. 3. Patient states they have a otr flatbed driver to transport after procedure? Yes 4. [...] spasms muscle. Haresh Judge, pain medicine fellow 3566 documented in this encounter Miscellaneous Notes * Miscellaneous - Con, Chicle Grinder Feeder - 06/25/2011 8:33 AM EDT documented in [...] mg documented in this encounter Care Teams Tool Crib Clerk Relationship Specialty Start Date End Date Jim Wei MD [address] [place] [address] PCP - General 07/23/10 10/08/15 [facility] [address] [address] [place] [address] Science EditorHose Cementer Medicine 03/26/11 documented as of this encounter
--- OUTSIDE RECORDS SUMMARY | 2024-06-02 16:46 | XMS_ITS | Encounter Summary ---
Author Organization [facility] Address [facility] [address] [place] [address] Care Team Providers Care Enrollment Management Manager Name Role Phone Jim Wei MD Primary Care Provider [phone] Reason for Visit * Reason Comments Bursitis thoracic right side Encounter Details Date Type Department Care Team (Late st Contact Info) Description 03/25/2011 1:15 PM EDT Office [place] [address] Nacho Almonte MD [facility] [place] [address] Right shoulder pain (Primary Dx) Discharge Disposition: [...] encounter Miscellaneous Notes * Miscellaneous - Con, Card Puncher - 04/03/2011 3:05 PM EDT documented in this encounter Plan of Treatment Not on file documented as of this encounter Visit Diagnoses Diagnosis Right shoulder pain- Primary Pain in joint, shoulder region documented in this encounter Care Teams Enrollment Management Manager Relationship Specialty Start Date End Date Jim Wei MD [address] [place] [address] PCP - General 07/23/10 10/08/15 documented as of this encounter
--- OUTSIDE RECORDS SUMMARY | 2024-06-02 16:46 | XMS_ITS | Encounter Summary ---
Author Organization [facility] Address [facility] [address] [place] [address] Care Team Providers Care Soil Analyst Name Role Phone Jim Wei MD Primary Care Provider [phone] Reason for Visit * Reason Comments Right Shoulder Pain Cervicalgia Encounter Details Date Type Department Care Team (Late st Contact Info) Description 10/17/2011 11:45 AM EST [place] [address] Nacho Almonte MD [facility] [place] [address] Right shoulder pain (Primary Dx) Discharge Disposition: [...] We spent approximately 25 minutes of direct utwg-wv-qrza time with the patient and her of [...] region documented in this encounter Care Teams Soil Analyst Relationship Specialty Start Date End Date Jim Wei MD [address] [place] [address] PCP - General 07/23/10 10/08/15 [facility] [address] [address] [place] [address] Direct Care StafferUser Experience Developer Medicine 03/26/11 documented as of this encounter
--- OUTSIDE RECORDS SUMMARY | 2024-06-02 16:46 | XMS_ITS | Encounter Summary ---
Author Organization [facility] Address [address] [place] [address] Care Team Providers Care Physician Practice Consultant Name Role Phone Angelica Murphy TINY Primary Care Provider [phone] Reason for Visit * Auth/Cert (Routine) Specialty Diagnoses / Procedures Referred By Stephanie price Referred To Contact Diagnoses Arthralgia of left lower leg Arthralgia of left lower leg [M25.562] Procedures CO ARTHROSCOPY HIP W/LABRAL REPAIR CO ARTHROSCOPY HIP W/ACETABULOPLASTY CO HIP SCOPE/REMV BODY,SYNOVECTOMY CO HIP SCOPE/REMV BODY,PLASTY/RESECTN ARTHROSCOPY W/ LABRAL REPAIR ARTHROSCOPY HIP W/ACETABULOPLASTY ARTHROSCOPY, HIP, SURGICAL; W/SYNOVECTOMY CHONDROPLASTY, HIP, ARTHROSCOPIC Referral ID Status Reason Start Date Expiration Date Visits Re quested Visits Authorized [id number] 1 1 Encounter Details Date Type Department Care Team (Late st Contact Info) Description 09/12/2022 7:30 EST - 09/12/2022 9:50 EST Surgery [facility] Operating Room [address] [place] [address] Farzad Garza MD [address] [facility] [address] [place] [address] ARTHROSCOPY W/ LABRAL REPAIR [71047 (CPT??)] Surgery Details Date/Time Status Location OR Service Patient Class Case Cl ass Case Type Trauma Case? 09/12/22 0730 Posted [facility] OR OR 02 [facility] H - Elective Panel 1 [...] additional Tylenol if on Vicodin, Percocet, or Belton unless instructed to by a doctor No [...] Code Departure Means Destination Home or Self Long-Term documented in this encounter H&P Notes * [...] facility-administered medications prior to visit. ? OBJECTIVE: [facility] 08/28/2017 On physical exam, the patient [...] OF : 73 SURGEON: Latrice Garza MD PACK PRESS OPERATOR: Taylor Tovar DATE OF SURGERY: 09/12/22 PREOPERATIVE [...] A parallel capsulotomy was performed with the Andreafski blade approximately 1 cm distal labrum to [...] at the end the case. A skilled presser first was necessary to complete the procedure in [...] (Removed) Implants Type Name Action Serial No. Dickens ANCHOR SUTURE FIBERWIRE 1.8MM Q FIX [id number] - [id number] Implanted Dickens ANCHOR SUTURE FIBERWIRE 1.8MM Q FIX [id number] - [id number] Implanted Dickens ANCHOR SUTURE FIBERWIRE 1.8MM Q FIX [id number] - [id number] Implanted Staff: Regional Trainer: Kecia Walters RN Lead Burner Apprentice: Azalea Erickson Relief Regional Trainer: Stefania Meraz RN OR TECH: Brenna Hoyt Program Associate: Taylor Tovar Indications: Barbi Ivey is an [...] EST) 09/17/2022 12:2 9 EST Scan 2 Sanitation Officer PROCEDURE/MINOR JIGAR GICAL ORDERABLES documented in this [...] hives but no anaphylaxis symptoms-Gila Gold MD aware)0785 (Given - Provider: Carlos Gold MD) diazePAM [...] er: Farzad Garza MD - Comment: lot: [id number] exp: 02/2023) chlorhexidine gluconate 2 % cloth [...] 09/12/2022 documented in this encounter Care Teams Physician Practice Consultant Relationship Specialty Start Date End Date Angelica Murphy FNP [facility] [address] PCP - General 08/05/21 documented as of this encounter
--- OUTSIDE RECORDS SUMMARY | 2024-06-02 16:46 | XMS_ITS | Encounter Summary ---
Author Organization [facility] Address [facility] [address] [place] [address] Care Team Providers Care Pairer Name Role Phone Jim Wei MD Primary Care Provider [phone] Encounter Details Date Type Department Care Team (Late st Contact Info) Description 01/07/2011 [place] [address] Emeka Hernandez Jr., MD [facility] [place] [place] [address] Urolithiasis (Primary Dx) Social History Tobacco Use [...] 04/02/2011 10:26 am) Patient Info ID: ? [id number] ? : [birth year] (35 yrs) Name: ? BARBI IVEY ? Visit Date: 04/02/2011 10:20 am Procedures URETRO - Retroperitoneal Complete - [id number] ? [id number] Indications Urolithiasis Right Kidney Size (cm) ?L: [...] Final 04/02/2011 10:26 am) Patient Info ID: [id number] : [birth year] (35 yrs) Name: BARBI IVEY Visit Date: 04/02/2011 10:20 am Procedures URETRO - Retroperitoneal Complete - [id number] Indications Urolithiasis Right Kidney Size (cm) L: [...] unspecified documented in this encounter Care Teams Pairer Relationship Specialty Start Date End Date Jim Wei MD [address] [place] [address] PCP - General 07/23/10 10/08/15 documented as of this encounter
--- OUTSIDE RECORDS SUMMARY | 2024-06-02 16:46 | XMS_ITS | Encounter Summary ---
Author Organization [facility] Address [facility] [address] Care Team Providers Care Speech Therapist Early Intervention Name Role Phone Jim Wei MD Primary Care Provider [phone] Encounter Details Date Type Department Care Team (Late st Contact Info) Description 09/11/2010 Orders Only [place] [address] Nacho Almonte MD [facility] [place] [address] Social History Tobacco Use Types Packs/Day Years [...] FILM LIBRARY ORD ERABLES [facility] [address] [facility] [place] [address] documented in this encounter Visit Diagnoses Not on filedocumented in this encounter Care Teams Speech Therapist Early Intervention Relationship Specialty Start Date End Date Jim Wei MD [address] [place] [address] PCP - General 07/23/10 10/08/15 [facility] [address] [address] [place] [address] Patient Support PartnerWool Supplier Medicine 03/26/11 documented as of this encounter
--- OUTSIDE RECORDS SUMMARY | 2024-06-02 16:46 | XMS_ITS | Encounter Summary ---
[place] [address] Care Team Providers Care Shell Sorter Name Role Phone Jim Wei MD Primary Care Provider [phone] Reason for Visit * Reason Onset Date Comments Post Procedure Call 06/19/2011 Encounter Details Date Type Department Care Team (Late st Contact Info) Description 06/19/2011 Telephone [place] [address] Katelyn Quinn RN Post Procedure Call Social [...] Center Post-Procedure Phone Note Patient: Barbi Ivey [id number] Post-procedure phone call from patient to report [...] on filedocumented in this encounter Care Teams Shell Sorter Relationship Specialty Start Date End Date Jmi Wei MD [address] [place] [address] PCP - General 07/23/10 10/08/15 [facility] [address] [address] [place] [address] Flight Operations Dispatch ClerkRivet Heater Gas Medicine 03/26/11 documented as of this encounter
--- OUTSIDE RECORDS SUMMARY | 2024-06-02 16:46 | XMS_ITS | Encounter Summary ---
Author Organization [facility] Address [facility] [address] [place] [address] Care Team Providers Care Programs Manager Name Role Phone Jim Wei MD Primary Care Provider [phone] Reason for Visit * Reason Comments Nephrolithiasis urolithiasis Encounter Details Date Type Department Care Team (Late st Contact Info) Description 04/02/2011 11:00 AM EDT [place] [address] CLINIC, Sowmya Baez Jr., MD [facility] [place] [address] History of kidney stones (Primary Dx) Discharge [...] 03/16/2012 12:06 pm) Patient Info ID: ? [id number] ? : ??[birth year] (36 yrs) Name: ? BARBI IVEY ? Visit Date: 03/16/2012 11:56 am Performed By Performed By: ?Chantale Jack RDMS Attending: ? Bob MILNER, Meet Lundy Referred By: ? SOWMYA INGRAM MD Service(s) Provided URETRO - Retroperitoneal Complete - [id number] ? 72582 Indications ? stones, ?hydro Right Kidney Size [...] Final 03/16/2012 12:06 pm) Patient Info ID: [id number] : [birth year] (36 yrs) Name: BARBI IVEY Visit Date: 03/16/2012 11:56 am Performed By Performed By: Chantale Jack [facility] Attending: Meet Rojas MD Referred By: SOWMYA INGRAM MD Service(s) Provided URETRO - Retroperitoneal Complete - [id number] Indications ? stones, ?hydro Right Kidney Size [...] 03/16/2012 12:06 pm Sowmya Ingram Jr., MD [facility] US GEN ORDERAB LES * (ABNORMAL) Basic [...] Ordered By: SOWMYA INGRAM JR ? MR#: [id number] ?LOC: ??5B ? /Sex: ?? 5 (35 [...] calculi documented in this encounter Care Teams Programs Manager Relationship Specialty Start Date End Date Jim Wei MD [address] [place] [address] PCP - General 07/23/10 10/08/15 [facility] [address] [address] [place] [address] Pulmonologist IntensivistCompress Machine Operator Medicine 03/26/11 documented as of this encounter
--- OUTSIDE RECORDS SUMMARY | 2024-06-02 16:46 | XMS_ITS | Encounter Summary ---
Author Organization [facility] Address [facility] [address] [place] [address] Care Team Providers Care Visual Basic Programmer Name Role Phone Jim Wei MD Primary Care Provider [phone] Reason for Referral * Psychiatric (Routine) - Closed by system - Referral Specialty Diagnoses / Procedures Referred By Contac t Referred To Contact Psychiatry Diagnoses Right shoulder pain Nacho Almonte MD [facility] [place] [address] Ana Mckeon, PhD [facility] [place] [address] Referral ID Status Reason Start Date Expiration Date Visits Requested Visits Authorized [id number] Closed by system - Referral Consult, Test & Treat 1 01/14/2012 1 1 * Rehabilitation (Routine) - Complete - Unable to Contact Patient Specialty Diagnoses / Procedures Referred By Contac t Referred To Contact Orthopaedics Diagnoses Right shoulder pain Nacho Almonte MD [facility] [place] [address] [facility] [address] [place] [address] Referral ID Status Reason Start Date Expiration Date Visits Requested Visits Authorized [id number] Complete - Unable to Contact Patient Consult, Test & Treat 1 01/14/2012 1 1 Reason for Visit * Reason Comments Other f/u Encounter Details Date Type Department Care Team (Late st Contact Info) Description 07/18/2011 12:45 PM EST Follow-[place] [address] Nacho Almonte MD [facility] [place] [address] Right shoulder pain (Primary Dx) Discharge Disposition: [...] discussion was held with the patient and child support case officer concerning the INDIO report. In fact we spent some 19 minutes counseling this patient in this 25 minute direct vvvk-eg-czyi visit. The INDIO examiner has determined that [...] engage the patient in a intensive functional oriental orthodox program. I am therefore referring her for evaluation to see if she is a candidate for the functional oriental orthodox program at [facility]. Finally this condition has been going on long enough that I believe there will be some degree of chronic residual problem with pain and function for a long time afterwards I think the functional oriental orthodox program will get her back to his [...] was discussed with the patient and the child support case officer we are going to proceed ahead as [...] region documented in this encounter Care Teams Visual Basic Programmer Relationship Specialty Start Date End Date Jim Wei MD [address] [place] [address] PCP - General 07/23/10 10/08/15 [facility] [address] [address] [place] [address] Catcher PlugTherapist'S Assistant Medicine 03/26/11 documented as of this encounter
--- OUTSIDE RECORDS SUMMARY | 2024-06-02 16:46 | XMS_ITS | Encounter Summary ---
Author Organization [facility] Address [facility] [place] [address] Care Team Providers Care Automatic Fancy Machine Operator Name Role Phone Jim Wei MD Primary Care Provider [phone] Encounter Details Date Type Department Care Team (Latest Contact Info) Description 03/16/2012 9:22 AM EDT - 03/16/2012 11:59 PM EDT Hospital [place] [address] History of kidney stones Social History Tobacco [...] 03/16/2012 12:06 pm) Patient Info ID: ? [id number] ? : [birth year] (36 yrs) Name: ? BARBI IVEY ? Visit Date: 03/16/2012 11:56 am Performed By Performed By: ?Chantale Jack RDMS Attending: ? Bob MILNER, Meet Lundy Referred By: ? SOWMYA HERNANDEZ MD Service(s) Provided URETRO - Retroperitoneal Complete - [id number] ? [id number] Indications ? stones, ?hydro Right Kidney Size [...] Final 03/16/2012 12:06 pm) Patient Info ID: [id number] : [birth year] (36 yrs) Name: BARBI IVEY Visit Date: 03/16/2012 11:56 am Performed By Performed By: Chantale Jack [facility] Attending: Meet Rojas MD Referred By: SOWMYA HERNANDEZ MD Service(s) Provided URETRO - Retroperitoneal Complete - [id number] Indications ? stones, ?hydro Right Kidney Size [...] calculi documented in this encounter Care Teams Automatic Fancy Machine Operator Relationship Specialty Start Date End Date Jim Wei MD [address] [place] [address] PCP - General 07/23/10 10/08/15 [facility] [address] [address] [place] [address] System ProgrammerEpic Ambulatory Specialists Medicine 03/26/11 documented as of this encounter
--- OUTSIDE RECORDS SUMMARY | 2024-06-02 16:46 | XMS_ITS | Encounter Summary ---
Author Organization [facility] Address [facility] Maribeth muñ[place] [address] Care Team Providers Care Business Development Name Role Phone Jim Wei MD Primary Care Provider [phone] Reason for Visit * Reason Comments Nephrolithiasis Encounter Details Date Type Department Care Team (Late st Contact Info) Description 06/22/2012 10:40 AM EDT [place] [address] Sowmya Ingram Jr., MD [facility] [place] [address] Calculus of kidney; History of kidney stones [...] 09/08/2012 03:20 pm) Patient Info ID: ? [id number] ? : ??[birth year] (36 yrs) Name: ? CECILE IVEY ? Visit Date: 09/08/2012 02:50 pm Performed By Performed By: ?Patrizia Francisco RDMS Associate: ? Aida MILNER, [place] Attending: ? eMet Rojas MD Referred By: ? SOWMYA INGRAM MD Service(s) Provided URETRO - Retroperitoneal Complete - [id number] ? [id number] Indications History of stones Comparison Ultrasound: 03/16/12 [...] Final 09/08/2012 03:20 pm) Patient Info ID: [id number] : [birth year] (36 yrs) Name: CECILE IVEY Visit Date: 09/08/2012 02:50 pm Performed By Performed By: Patrizia Francisco [facility] Associate: Davie Parra MD Attending: Meet Rojas MD Referred By: SOWMYA INGRAM MD Service(s) Provided URETRO - Retroperitoneal Complete - [id number] Indications History of stones Comparison Ultrasound: 03/16/12 [...] by the attending Sowmya Ingram Jr., MD [facility] GEN ORDERAB LES * (ABNORMAL) Basic Metabolic Panel (non-fasting) (06/22/2012 9:24 AM EDT) Glucose 84 60 - 199 mg/dL CERNER MILLENNIUM Comment:Diabetes: >=200 mg/d L plus symptoms Blood Urea Nitrogen 13 8 - 18 mg/dL CERNER MILLENNIUM Creatinine 0.69(L) 0.70 - 1.20 mg/dL CERNER MILLENNIUM Comment: Please note that the pediatric reference intervals supplied above were not validated at [facility]. Results from pediatric patients should be interpreted [...] MD CHEMISTRY ORDERABL ES Performing Organization Address City/State/[facility] Co de Phone Number [facility] documented in this encounter Visit Diagnoses Diagnosis Calculus of kidney History of kidney stones Personal history of urinary calculi Calculus of kidney documented in this encounter Care Teams Business Development Relationship Specialty Start Date End Date Jim Wei MD [address] [place] [address] PCP - General 07/23/10 10/08/15 [facility] [address] [address] [place] [address] Hand StripperWagon Drill Operator Medicine 03/26/11 documented as of this encounter
--- OUTSIDE RECORDS SUMMARY | 2024-06-02 16:46 | XMS_ITS | Encounter Summary ---
Author Organization [facility] Address [address] [place] [address] Care Team Providers Care Operations Vice President Name Role Phone Angelica Murphy TINY Primary Care Provider [phone] Reason for Visit * Reason Comments Post-OP Follow Up Encounter Details Date Type Department Care Team (Late st Contact Info) Description 09/22/2022 9:45 EST Post-op Visit [facility] Orthopedics & Sport Medicine [address] [place] [address] Farzad Garza MD [address] [facility] [address] [place], [place] [id number] Left hip pain (Primary Dx) Social History [...] documented as of this encounter Care Teams Operations Vice President Relationship Specialty Start Date End Date Angelica Murphy [place] [address] PCP - General 08/05/21 documented as of this encounter
--- OUTSIDE RECORDS SUMMARY | 2024-06-02 16:47 | XMS_ITS | Encounter Summary ---
Author Organization [facility] Address [address] [place] [address] Care Team Providers Care Optical Systems Engineer Name Role Phone Angelica Murphy TINY Primary Care Provider [phone] Encounter Details Date Type Department Care Team (Late st Contact Info) Description 03/11/2022 Documentation Visit [facility] Comprehensive Pain Program - [place] [address] Geoff Mcconnell, PT [address] [place] [id number] Social History Tobacco Use Types Packs/Day Years [...] PT - 03/11/2022 1902 EDT REHABILITATION THERAPIES [facility] COMPREHENSIVE PAIN PROGRAM - [place] [address] [place] [address] Physical Therapy Contact Note Barbi Stephani Ivey [...] on filedocumented in this encounter Care Teams Optical Systems Engineer Relationship Specialty Start Date End Date [place] [address] PCP - General 08/05/21 documented as of this encounter
--- OUTSIDE RECORDS SUMMARY | 2024-06-02 16:47 | XMS_ITS | Encounter Summary ---
Author Organization [facility] Address [address] [place] [address] Care Team Providers Care Director Hospice Operations Name Role Phone Angelica Murphy TINY Primary Care Provider [phone] Reason for Visit * Reason Onset Date Comments Appointment Related 05/12/2022 Encounter Details Date Type Department Care Team (Late st Contact Info) Description 05/12/2022 Telephone [facility] Rehabilitation Therapy - Medical Office Building [address] [place] [phone] Therapy, Physical Appointment Related Social History Tobacco [...] filedocumented in this encounter Care Teams Director Hospice Operations Relationship Specialty Start Date End Date Angelica Murphy [place] [address] PCP - General 08/05/21 documented as of this encounter
--- OUTSIDE RECORDS SUMMARY | 2024-06-02 16:47 | XMS_ITS | Encounter Summary ---
Author Organization [facility] Address [address] [place] [address] Care Team Providers Care Commercial Tire Service Technician Name Role Phone SyAlex mascorrohanie FIORELLA Primary Care Provider + Reason for Visit * Reason Onset Date Comments Results 09/07/2020 Encounter Details Date Type Department Care Team (Late st Contact Info) Description 09/07/2020 Telephone [facility] Rheumatology & Immunology - [address] [address] Audi Smart MD [address] [place] [address], [address] [place] [address] Results Social History Tobacco Use [...] 08/28/[address] Murphy at [facility]. FYI. documented in this encounter Plan of Treatment Not on file documented as of this encounter Visit Diagnoses Not on filedocumented in this encounter Care Teams Commercial Tire Service Technician Relationship Specialty Start Date End Date Arlen Ryan ND [address] [place] [phone] PCP - General 02/21/20 08/04/21 documented as of this encounter
--- OUTSIDE RECORDS SUMMARY | 2024-06-02 16:47 | XMS_ITS | Encounter Summary ---
Author Organization [facility] Address [address] [place] [address] Care Team Providers Care Water Control Station Engineer Name Role Phone MarquesAngelica avelar TINY Primary Care Provider [phone] Reason for Visit * Laboratory Services (Routine/Next Available) - Order Cancelled Specialty Diagnoses / Procedures Referred By Stephanie price Referred To Contact Diagnoses Hypokalemia Procedures BASIC METABOLIC PANEL (BMP) Zulema Rodriguez MD [address] [place] [address], [address] [place] [address] Referral ID Status Reason Start Date Expiration Date V isits Requested Visits Authorized [id number] Order Cancelled 08/05/2021 6 6 Encounter Details Date Type Department Care Team ([facility] Contact Info) Description 08/05/2021 11:15 EST Phlebotomy Only [facility] Laboratory Services - [address] [address] Survey Worker, [facility] Lab Hypokalemia Social History Tobacco [...] 1.7 - 2.8 mg/dL 08/05/2021 12:44 EST [facility] Blood VENOUS BLOOD / Unknown Venipuncture / Unknown 08/05/2021 11:27 EST 08/05/2021 11:27 EST Zulema Rodriguez MD CHEMISTRY & BLOOD GA S ORDERABLES [facility] [address] [place] [address] * PHOSPHORUS (08/05/2021 11:27 EST) Phosphorus 3.1 2.5 - 4.5 mg/dL 08/05/2021 12:44 EST [facility] Blood VENOUS BLOOD / Unknown Venipuncture / Unknown 08/05/2021 11:27 EST 08/05/2021 11:27 EST Zulema Rodriguez MD CHEMISTRY & BLOOD GA S ORDERABLES Performing Organization Address [facility]/ZIP Co de Phone Number [facility] [address] [place] [address] * OSMOLALITY (08/05/2021 11:27 EST) Osmolality, Serum 282 275 - 295 mOsm/kg 08/05/2021 13:05 EST [facility] Blood VENOUS BLOOD / Unknown Venipuncture / Unknown 08/05/2021 11:27 EST 08/05/2021 11:27 EST Zulema Rodriguez MD CHEMISTRY & BLOOD GA S ORDERABLES Performing Organization Address [facility] Co de Phone Number [facility] [address] [place] [address] * OSMOLALITY, URINE (08/05/2021 11:27 EST) Osmolality, Urine 248 150-1,150 mOsm/kg 08/05/2021 12:31 EST [facility] Urine URINE SPECIMEN COLLECTION, CLEAN CATCH / Unknown Urine Collect / Unknown 08/05/2021 11:27 EST 08/05/2021 11:27 EST Zulema Rodriguez MD URINALYSIS ORDERABLE S Performing Organization Address City/[facility] Co de Phone Number [facility] [address] [place] [address] * POTASSIUM, URINE RANDOM (08/05/2021 11:27 EST) Potassium, Urine 25.8 See Note mmol/L 08/05/2021 12:35 EST [facility] Comment: NOTE: Reference range has not been established for potassium concentration in random urine specimens. Urine URINE SPECIMEN COLLECTION, CLEAN CATCH / Unknown Urine Collect / Unknown 08/05/2021 11:27 EST 08/05/2021 11:27 EST Zulema Rodriguez MD URINALYSIS ORDERABLE S Performing Organization Address City/[facility]/ZIP Co de Phone Number [facility] [address] [place] [address] * (ABNORMAL) BASIC METABOLIC PANEL (BMP) (08/05/2021 11:27 EST) Sodium 136 136 - 145 mmol/L 08/05/2021 12:44 [facility] Potassium 3.4(L) 3.5 - 5.0 mmol/L 08/05/2021 12:44 [facility] Chloride 99 96 - 110 mmol/L 08/05/2021 12:44 [facility] CO2 Total 28 22 - 32 mmol/L 08/05/2021 12:44 [facility] Anion Gap 9 8 - 16 08/05/2021 12:44 [facility] Glucose 91 70 - 100 mg/dL 08/05/2021 12:44 [facility] Calcium 9.6 8.5 - 10.5 mg/dL 08/05/2021 12:44 [facility] BUN 13 10 - 26 mg/dL 08/05/2021 12:44 [facility] Creatinine 0.79 0.52 - 1.04 mg/dL 08/05/2021 12:44 [facility] eGFR 90 >60 mL/min/1.73 m2 08/05/2021 12:44 [facility] Blood VENOUS BLOOD / Unknown Venipuncture / Unknown 08/05/2021 11:27 EST 08/05/2021 11:27 EST Zulema Rodriguez MD CHEMISTRY & BLOOD GA S ORDERABLES Performing Organization Address [facility] Co de Phone Number [facility] [address] [place] [address] documented in this encounter Visit Diagnoses Diagnosis Hypokalemia Hypopotassemia documented in this encounter Care Teams Water Control Station Engineer Relationship Specialty Start Date End Date Angelica Murphy FNP [place] [address] PCP - General 08/05/21 documented as of this encounter
--- OUTSIDE RECORDS SUMMARY | 2024-06-02 16:47 | XMS_ITS | Encounter Summary ---
Author Organization [facility] Address [address] [place] [address] Care Team Providers Care Aquatic Scientist Name Role Phone Angelica Murphy TINY Primary Care Provider [phone] Reason for Visit * Radiology Services (Routine/Next Available) - Authorization Not Required Specialty Diagnoses / Procedures Referred By Stephanie price Referred To Contact Diagnoses Left hip pain Procedures FL GUIDED LOCALIZATION, ASPIRATION, INJECTION, BIOPSY Farzad Garza MD [address] [place] [address] [facility] Referral ID Status Reason Start Date Expiration Date Visits Requested Visits Authorized [id number] Authorization Not Required 05/19/2022 1 1 Encounter Details Date Type Department Care Team (Latest Contact Info) Description 06/06/2022 13:44 EDT - 06/06/2022 23:59 EDT Hospital Encounter [facility] Xray [address] [place] [address] Discharge Disposition: Home or Self Care Social [...] Hip documented in this encounter Care Teams Aquatic Scientist Relationship Specialty Start Date End Date Angelica [place] [address] PCP - General 08/05/21 documented as of this encounter
--- OUTSIDE RECORDS SUMMARY | 2024-06-02 16:47 | XMS_ITS | Encounter Summary ---
Author Organization [facility] Address [address] [place] [address] Care Team Providers Care Drinking Water Technician Name Role Phone Sysuzannejesu Arlen FIORELLA Primary Care Provider + Reason for Visit * Reason Comments New Patient Visit * Consult (Routine) - Order Cancelled Specialty Diagnoses / Procedures Referred By Stephanie price Referred To Contact General Internal Medicine Diagnoses Chronic fatigue Fibromyalgia Polyarthralgia Audi Smart MD [address] [facility], [address] [place] [address] [facility] [address] [place] [address] Referral ID Status Reason Start Date Expiration Date Visits Requested Visits Authorized [id number] Order Cancelled Specialty Services Required 0 1 1 Encounter Details Date Type Department Care Team (Latest Contact Info) Description 10/17/2020 13:00 EST Initial consult [facility] Primary [facility] [address] [place] [address] Benny Urias MD Fibromyalgia (Primary Dx); Chronic [...] FOOD SENSITIVITY testing to my office at [address] [place], [place] [id number] We will review these at our next [...] and printed at the following link ?? https://cdn.GLIIF/wp-content/uploads//wb-xisdf-cagy-inflammatory- q-myk-fdma-pyramid-print.pdf ?? Simply take a look to see [...] daily- check the label for this information [employer] is a good product NOW is [...] As demonstrated by Dr Rasheeda Roach Dog [email or web address] BELLY BREATHING In a comfortable laying down [...] Rheumatology: Dr Smart PCP Angelica Farias, [place] The concept of ???Telemedicine?? has been [...] 2016 ?? Chronic lyme- was treated by [facility] ?? 3 antibiotics +supplements x [...] ?? 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 [...] and torso hurts / cramps, can't to machine operator hop picker legs and keepgoing ?? Going up stairs also hurts / cramps ?? Less difficulty on a flat Has an appointment for PT in October [facility] Lyme Anxiety, depression Nephrolithiasis Meds [...] daily Fruit- 4-5 daily Cheese- cheddar daily [place]- once per week, occl tuna steak Physical [...] Range SM (Gutierrez) Antibody 2.2 <20.0 Units WOOD PROCESSING WORKER ANTIBODIES BY LEBRON Result Value Ref Range WOOD PROCESSING WORKER Antibody 2.2 <20.0 Units SSA ANTIBODIES BY [...] seasonal job, caring for toddler at home, xgjkes-vc-fwz passed ?? [place] burnt out by the end of the summer Fatigue persists ?? Hard to walk to [place] 1/4 mile ?? Inclines are the hardest- whole buttock and torso hurts / cramps, can't to machine operator hop picker legs and keepgoing ?? Going up stairs also hurts / cramps; less difficulty on a flat Current sx also include ?? Muscle aches, joint pain, back pain ?? Daily headaches occur on top of forehead, on top of head, back of head, with shoulder and neck tension ?? 3-5 migraines per month ?? No period since age 40 [place] well 2.5 years ago PMH significant for [...] FOOD SENSITIVITY testing to my office at [address] [place] [address] We will review these at our next [...] and printed at the following link ?? https://cdn.GLIIF/wp-content/uploads//ek-kqdyh-xihb-inflammatory- d-xpo-pynz-pyramid-print.pdf ?? Simply take a look to see [...] daily- check the label for this information [employer] is a good product NOW is also [...] As demonstrated by Dr Rasheeda Roach Dog [email or web address]-[email or web address] BELLY BREATHING In a comfortable laying down [...] deficiency documented in this encounter Care Teams Drinking Water Technician Relationship Specialty Start Date End Date Arlen Ryan ND [address] [place] [phone] PCP - General 02/21/20 08/04/21 documented as of this encounter
--- OUTSIDE RECORDS SUMMARY | 2024-06-02 16:47 | XMS_ITS | Encounter Summary ---
Author Organization [facility] Address [address] [place] [address] Care Team Providers Care Parking Enforcement Technician Name Role Phone Angelica Murphy TINY Primary Care Provider [phone] Encounter Details Date Type Department Care Team [...] on filedocumented in this encounter Care Teams Parking Enforcement Technician Relationship Specialty Start Date End Date Angelica Murphy [place] [address] PCP - General 08/05/21 documented as of this encounter
--- OUTSIDE RECORDS SUMMARY | 2024-06-02 16:47 | XMS_ITS | Encounter Summary ---
Author Organization [facility] Address [address] [place] [address] Care Team Providers Care Lumber Grader Name Role Phone Angelica Murphy TINY Primary Care Provider [phone] Encounter Details Date Type Department Care Team (Late st Contact Info) Description 03/06/2022 Orders Only [facility] Comprehensive Pain Program - [address] [place] [address] Nikko Olivas MD [address] [place] [address] Chronic pain syndrome (Primary Dx) [...] Primary documented in this encounter Care Teams Lumber Grader Relationship Specialty Start Date End Date Angelica Murphy FNP [address] [place] [address] PCP - General 08/05/21 documented as of this encounter
--- OUTSIDE RECORDS SUMMARY | 2024-06-02 16:47 | XMS_ITS | Encounter Summary ---
Author Organization [facility] Address [address] [place] [address] Care Team Providers Care Night Shift Manager Name Role Phone Angelica Murphy TINY Primary Care Provider [phone] Reason for Visit * Reason Comments Chronic Pain Encounter Details Date Type Department Care Team (Latest Contact Info) Description 04/01/2022 13:15 EDT Group Visit [facility] Comprehensive Pain Program - [facility] [address] [place] [address] Abdoulaye Riley, [facility] [address] [place] [address] Anxiety about health (Primary Dx); [...] Notes * Group Note - Abdoulaye Riley, [facility] - 04/01/2022 1315 EDT Date: 04/01/2022 Start Time: 13:15 End Time: 14:45 Comprehensive Pain Program [facility] Session 6 of 12 Number of [...] frequency and duration of therapy: Treatment at [facility] includes participating in this [...] frequency and duration of therapy: Treatment at [facility] includes participating in this [...] syndrome documented in this encounter Care Teams Night Shift Manager Relationship Specialty Start Date End Date Angelica Murphy [place] [address] PCP - General 08/05/21 documented as of this encounter
--- OUTSIDE RECORDS SUMMARY | 2024-06-02 16:47 | XMS_ITS | Encounter Summary ---
Author Organization [facility] Address [address] [place] [address] Care Team Providers Care Receiving And Processing Supervisor Name Role Phone Angelica Murphy TINY Primary Care Provider [phone] Reason for Visit * Reason Onset Date Comments Appointment Related 03/07/2022 Encounter Details Date Type Department Care Team (Late st Contact Info) Description 03/07/2022 Telephone [facility] Rehabilitation Therapy - Medical Office Building [address] [place] [phone] Therapy, Physical Appointment Related Social History Tobacco [...] - Gerri Peterson - 03/07/2022 1049 EDT [facility] REHABILITATION THERAPY - MEDICAL OFFICE BUILDING [address] [place] [address] Telephone Intake Information for Scheduling NEW Patients [...] cover 30 total therapy visits (PT, OT,and PROCESS CONTROL SUPERVISOR combined) between August and August 30 of this year. If the patient has visits already, further therapy may not be covered by their insurance. Notes: ASKED PATIENT TO ARRIVE EARLY FOR PAPERWORK. PATIENT IS TRYING TO LINE ALL APPOINTMENTS UP WITH CPP APPOINTMENTS DUE TO TRAVEL DISTANCE Gerri Peterson 03/07/2022 documented in this encounter Plan of Treatment Not on file documented as of this encounter Visit Diagnoses Not on filedocumented in this encounter Care Teams Receiving And Processing Supervisor Relationship Specialty Start Date End Date Angelica Murphy [place] [address] PCP - General 08/05/21 documented as of this encounter
--- OUTSIDE RECORDS SUMMARY | 2024-06-02 16:47 | XMS_ITS | Encounter Summary ---
Author Organization [facility] Address [address] [place] [address] Care Team Providers Care Restorative Coordinator Name Role Phone Angelica Murphy TINY Primary Care Provider [phone] Reason for Visit * Reason Comments Chronic Pain Encounter Details Date Type Department Care Team (Latest Contact Info) Description 03/28/2022 16:00 EDT Office Visit [facility] Comprehensive Pain Program - [address] [place] [address] Nikko Olivas MD [address] [place] [address] [address] [place] [address] Chronic pain syndrome (Primary Dx) [...] a half drive from her place in [place]. Drivinghas recently been a trigger for increased [...] Primary documented in this encounter Care Teams Restorative Coordinator Relationship Specialty Start Date End Date Angelica Murphy FNP [facility] [place] [address] PCP - General 08/05/21 documented as of this encounter
--- OUTSIDE RECORDS SUMMARY | 2024-06-02 16:47 | XMS_ITS | Encounter Summary ---
Author Organization [facility] Address [address] [place] [address] Care Team Providers Care Residential Support Worker Name Role Phone Angelica Murphy TINY Primary Care Provider [phone] Reason for Visit * Reason Comments Other [...] Nephrology Diagnoses Hypokalemia Hypomagnesemia Benny Urias MD [facility] [address] [place] [address] Referral ID Status Reason Start Date Expiration Date Visits Requested Visits Authorized [id number] Specialty Report Received Specialty Services Required 04/06/2021 1 1 Encounter Details Date Type Department Care Team (Late st Contact Info) Description 08/05/2021 10:20 EST Office Visit [facility] Nephrology - [address] [id number] Zulema Rodriguez MD [address] [place] [address], Level 2 [place] [address] Hypokalemia (Primary Dx) Social History [...] 08/05/2021 10:20 EST Lab work here at [facility] labs. Then BMP every 2 months. documented [...] was . She had been followed by [facility] Nephrology. She has been otherwise asymptomatic. She [...] was probably doneabout 4 months ago - [facility] ([facility] lab is her lab. No vomiting, no [...] posterior approach. [facility]. [facility] on [...] 1.7 - 2.8 mg/dL 08/05/2021 12:[address] [facility] Blood VENOUS BLOOD / Unknown Venipuncture / Unknown 08/05/2021 11:27 EST 08/05/2021 11:27 EST Zulema Rodriguez MD CHEMISTRY & BLOOD GA S ORDERABLES Performing Organization Address City/[facility]/ZIP Co de Phone Number [facility] [address] [place] [address] * PHOSPHORUS (08/05/2021 11:27 EST) Phosphorus 3.1 2.5 - 4.5 mg/dL 08/05/2021 12:[address] [facility] Blood VENOUS BLOOD / Unknown Venipuncture / Unknown 08/05/2021 11:27 EST 08/05/2021 11:27 EST Zulema Rodriguez MD CHEMISTRY & BLOOD GA S ORDERABLES Performing Organization Address [facility] Co de Phone Number [facility] [address] [place] [address] * OSMOLALITY (08/05/2021 11:27 EST) Osmolality, Serum 282 275 - 295 mOsm/kg 08/05/2021 13:[address] [facility] Blood VENOUS BLOOD / Unknown Venipuncture / Unknown 08/05/2021 11:27 EST 08/05/2021 11:27 EST Zulema Rodriguez MD CHEMISTRY & BLOOD GA S ORDERABLES Performing Organization Address [facility] Co de Phone Number [facility] [address] [place] [address] * OSMOLALITY, URINE (08/05/2021 11:27 EST) Osmolality, Urine 248 150-1,150 mOsm/kg 08/05/2021 12:[address] [facility] Urine URINE SPECIMEN COLLECTION, CLEAN CATCH / Unknown Urine Collect / Unknown 08/05/2021 11:27 EST 08/05/2021 11:27 EST Zulema Rodriguez MD URINALYSIS ORDERABLE S Performing Organization Address City/[facility]/ZIP Co de Phone Number [facility] [address] [place] [address] * POTASSIUM, URINE RANDOM (08/05/2021 11:27 EST) Potassium, Urine 25.8 See Note mmol/L 08/05/2021 12:[address] [facility] Comment: NOTE: Reference range has not been established for potassium concentration in random urine specimens. Urine URINE SPECIMEN COLLECTION, CLEAN CATCH / Unknown Urine Collect / Unknown 08/05/2021 11:27 EST 08/05/2021 11:27 EST Zulema Rodriguez MD URINALYSIS ORDERABLE S [facility] [address] [place] [address] * (ABNORMAL) BASIC METABOLIC PANEL (BMP) (08/05/2021 11:27 EST) Sodium 136 136 - 145 mmol/L 08/05/2021 12:[address] [facility] Potassium 3.4(L) 3.5 - 5.0 mmol/L 08/05/2021 12:[address] [facility] Chloride 99 96 - 110 mmol/L 08/05/2021 12:[address] [facility] CO2 Total 28 22 - 32 mmol/L 08/05/2021 12:[address] [facility] Anion Gap 9 8 - 16 08/05/2021 12:[address] [facility] Glucose 91 70 - 100 mg/dL 08/05/2021 12:[address] [facility] Calcium 9.6 8.5 - 10.5 mg/dL 08/05/2021 12:[address] [facility] BUN 13 10 - 26 mg/dL 08/05/2021 12:[address] [facility] Creatinine 0.79 0.52 - 1.04 mg/dL 08/05/2021 12:[address] [facility] eGFR 90 >60 mL/min/1.73 m2 08/05/2021 12:[address] [facility] Blood VENOUS BLOOD / Unknown Venipuncture / Unknown 08/05/2021 11:27 EST 08/05/2021 11:27 EST Zulema Rodriguez MD CHEMISTRY & BLOOD GA S ORDERABLES [facility] [address] [place] [address] documented in this encounter Visit Diagnoses Diagnosis [...] daily. added in this encounter Care Teams Residential Support Worker Relationship Specialty Start Date End Date Angelica Murphy [place] [place] [address] PCP - General 08/05/21 documented as of this encounter
--- OUTSIDE RECORDS SUMMARY | 2024-06-02 16:47 | XMS_ITS | Encounter Summary ---
Author Organization [facility] Address [address] [place] [address] Care Team Providers Care Physical Optics Teacher Name Role Phone Angelica Murphy TINY Primary Care Provider [phone] Reason for Visit * Reason Onset Date Comments Appointment Related 05/12/2022 Encounter Details Date Type Department Care Team (Late st Contact Info) Description 05/12/2022 Telephone [facility] Rehabilitation Therapy - Medical Office Building [address] [place] [address] Saranya [place], OTR/L [address] [facility] [place] [address] Appointment Related Social History Tobacco [...] Saranya [place] OT - 05/12/2022 1606 EDT [facility] REHABIL[facility]ATION THERAPY - MEDICAL OFFICE [address] [address] Occupational Therapy Contact Note Pt reported she was unsure if she has enough visits for the year and did not want to reschedule. Ptto call front office manager to schedule follow up with OT or notify OT of discontinuation/hold status. Saranya [place] OT 05/12/2022 16:06 documented in this encounter Plan of Treatment Not on file documented as of this encounter Visit Diagnoses Not on filedocumented in this encounter Care Teams Physical Optics Teacher Relationship Specialty Start Date End Date Angelica Murphy FNP [address] [place] [address] PCP - General 08/05/21 documented as of this encounter
--- OUTSIDE RECORDS SUMMARY | 2024-06-02 16:47 | XMS_ITS | Encounter Summary ---
Author Organization [facility] Address [address] [place] [address] Care Team Providers Care Wind Farm Designer Name Role Phone Angelica Murphy TINY Primary Care Provider [phone] Reason for Visit * Reason Comments Chronic Pain Encounter Details Date Type Department Care Team (Latest Contact Info) Description 04/22/2022 11:00 EDT Office Visit [facility] Comprehensive Pain Program - [address] [place] [address] Julia Montez, PhD [address] [place] [address] [address] [place] [address] Anxiety about health (Primary Dx); [...] session. SUBJECTIVE: Shared that she went to [place] last week, feeling good about doing something [...] syndrome documented in this encounter Care Teams Wind Farm Designer Relationship Specialty Start Date End Date Angelica [place] [address] PCP - General 08/05/21 documented as of this encounter
--- OUTSIDE RECORDS SUMMARY | 2024-06-02 16:47 | XMS_ITS | Encounter Summary ---
Author Organization [facility] Address [address] [place] [address] Care Team Providers Care Cable Wirer Name Role Phone Angelica Murphy TINY Primary Care Provider [phone] Reason for Referral * Radiology Services (Routine/Next Available) - Authorization Not Required Specialty Diagnoses / Procedures Referred By Stephanie price Referred To Contact Diagnoses Left hip pain Procedures FL GUIDED LOCALIZATION, ASPIRATION, INJECTION, BIOPSY Farzad Garza MD [address] [address] [facility] Referral ID Status Reason Start Date Expiration Date Visits Requested Visits Authorized [id number] Authorization Not Required 05/19/2022 1 1 Reason for Visit * Reason Comments Follow-up Encounter Details Date Type Department Care Team (Late st Contact Info) Description 05/19/2022 11:30 EDT Office Visit [facility] Orthopedics & Sport Medicine [address], [address] [place] [address] Farzad Garza MD [address] [facility] [address] [place] [address] Left hip pain (Primary Dx) Social [...] notes for full HPI from our physician assistant golf course superintendent. At her last assessment, greater trochanteric bursal [...] thigh documented in this encounter Care Teams Cable Wirer Relationship Specialty Start Date End Date Angelica Murphy [place] [address] PCP - General 08/05/21 documented as of this encounter
--- OUTSIDE RECORDS SUMMARY | 2024-06-02 16:47 | XMS_ITS | Encounter Summary ---
Author Organization [facility] Address [address] [place] [address] Care Team Providers Care Manager Membership Name Role Phone Angelica Murphy TINY Primary Care Provider [phone] Reason for Visit * Reason Comments Chronic Pain Encounter Details Date Type Department Care Team (Latest Contact Info) Description 04/08/2022 13:15 EDT Group Visit [facility] Comprehensive Pain Program - [address] [place] [address] Julia Montez, PhD [address] [place] [address] [address] [place] [address] Adjustment disorder with anxiety (Primary [...] in the past week by going to [employer] Discussed unhelpful thinking patterns and how to [...] frequency and duration of therapy: Treatment at [facility] includes participating in this 12-week Acceptance [...] documented in this encounter Care Teams Manager Membership Relationship Specialty Start Date End Date Angelica Murphy FNP [address] [facility] [place] [address] PCP - General 08/05/21 documented as of this encounter
--- OUTSIDE RECORDS SUMMARY | 2024-06-02 16:47 | XMS_ITS | Encounter Summary ---
Author Organization [facility] Address [address] [place] [address] Care Team Providers Care Money Room Teller Name Role Phone Syjustenledy Arlen BARROS Primary Care Provider + Angelica Murphy Primary Care Provider Reason for Visit * Reason Onset Date Comments Appointment Related 04/09/2021 Encounter Details Date Type Department Care Team (Late st Contact Info) Description 04/09/2021 Telephone [facility] Nephrology - [address] [address] Unknown, Provider, Appointment Related Social [...] on filedocumented in this encounter Care Teams Money Room Teller Relationship Specialty Start Date End Date Arlen Ryan ND [address] [place] [phone] PCP - General 02/21/20 08/04/21 Angelica Murphy FNP [address] [place] [address] PCP - General 08/05/21 documented as of this encounter
--- OUTSIDE RECORDS SUMMARY | 2024-06-02 16:47 | XMS_ITS | Encounter Summary ---
Author Organization [facility] Address [address] [place] [address] Care Team Providers Care Creative/Art Director Name Role Phone Angelica Murphy TINY Primary Care Provider [phone] Reason for Visit * Reason Comments Chronic Pain Encounter Details Date Type Department Care Team (Latest Contact Info) Description 04/29/2022 13:15 EDT Group Visit [facility] Comprehensive Pain Program - [address] [place] [address] Julia Montez, PhD [address] [place] [address] [address] [place] [address] Anxiety about health (Primary Dx); [...] syndrome documented in this encounter Care Teams Creative/Art Director Relationship Specialty Start Date End Date Angelica Murphy [place] [address] PCP - General 08/05/21 documented as of this encounter
--- OUTSIDE RECORDS SUMMARY | 2024-06-02 16:47 | XMS_ITS | Encounter Summary ---
Author Organization [facility] Address [address] [place] [address] Care Team Providers Care Diamond Sizer And Sorter Name Role Phone Angelica Murphy TINY Primary Care Provider [phone] Reason for Visit * Reason Onset Date Comments Appointment Related 04/24/2022 Encounter Details Date Type Department Care Team (Late st Contact Info) Description 04/24/[address] [address] Physical, Therapy Appointment Related Social History Tobacco [...] - Nubia Barker - 04/24/2022 [address] [address] A call was placed to [facility] offering a physical therapy appointment the week of 04/28/22. A message was left with our office phone number for patient to call. Nubia Barker 04/24/2022 11:16 documented in this encounter Plan of Treatment Not on file documented as of this encounter Visit Diagnoses Not on filedocumented in this encounter Care Teams Diamond Sizer And Sorter Relationship Specialty Start Date End Date Angelica Murphy [place] [place] [address] PCP - General 08/05/21 documented as of this encounter
--- OUTSIDE RECORDS SUMMARY | 2024-06-02 16:47 | XMS_ITS | Encounter Summary ---
Author Organization [facility] Address [address] [place] [address] Care Team Providers Care Bolt Threader Name Role Phone Angelica Murphy TINY Primary Care Provider Encounter Details Date Type Department Care Team (Late st Contact Info) Description 08/07/2021 Abstract [facility] Nephrology - [address] [id number] Zulema Rodriguez MD [address] [place] [address], [address] [place] [address] Social History Tobacco Use Types [...] POTASSIUM (01/16/2021 8:30 EDT) Potassium, External 3.6 [facility] Blood VENOUS BLOOD / Unknown 01/16/2021 8:30 EDT Historical Provider CHEMISTRY & BLOOD GAS ORDERABLES [facility] * POTASSIUM (12/18/2020 8:15 EDT) Potassium, External 3.3 [facility] Blood VENOUS BLOOD / Unknown 12/18/2020 8:15 EDT Historical Provider CHEMISTRY & BLOOD GAS ORDERABLES [facility] * POTASSIUM (11/02/2020 9:34 EST) Potassium, External 3.6 [facility] Blood VENOUS BLOOD / Unknown 11/02/2020 9:34 EST Historical Provider CHEMISTRY & BLOOD GAS ORDERABLES [facility] * VITAMIN D (25,OH) (10/23/2020 10:15 EST) 25OH Vitamin D Tot, External 24.9 [facility] Blood VENOUS BLOOD / Unknown 10/23/2020 10:15 EST Historical Provider CHEMISTRY & BLOOD GAS ORDERABLES [facility] * IRON (10/23/2020 10:15 EST) Iron, External 76 [facility] Blood VENOUS BLOOD / Unknown 10/23/2020 10:15 EST Historical Provider CHEMISTRY & BLOOD GAS ORDERABLES [facility] * IBC (10/23/2020 10:15 EST) TIBC, External 314 [facility] Blood VENOUS BLOOD / Unknown 10/23/2020 10:15 EST Historical Provider CHEMISTRY & BLOOD GAS ORDERABLES [facility] * MAGNESIUM (10/23/2020 10:15 EST) Magnesium, External 1.9 [facility] Blood VENOUS BLOOD / Unknown 10/23/2020 10:15 EST Historical Provider CHEMISTRY & BLOOD GAS ORDERABLES [facility] * BASIC METABOLIC PANEL (BMP) (10/23/2020 10:15 EST) GFR, Calculated, External >=60 [facility] Glucose, Serum, External 97 [facility] Calculated Calcium, External [facility] BUN, External 15 [facility] Calcium, External 9.1 [facility] Chloride, External 101 [facility] CO2, External 28.9 [facility] Creatinine, External 0.7 [facility] Fasting?, External [facility] Potassium, External 2.9 [facility] Sodium, External 140 [facility] Blood VENOUS BLOOD / Unknown 10/23/2020 10:15 EST Historical Provider CHEMISTRY & BLOOD GAS ORDERABLES Performing Organization Address [facility]/ZIP Co de Phone Number [facility] * POTASSIUM (07/25/2020 9:43 EST) Potassium, External 3.6 [facility] Blood VENOUS BLOOD / Unknown 07/25/2020 9:43 EST Historical Provider CHEMISTRY & BLOOD GAS ORDERABLES Performing Organization Address City/[facility]/ZIP Co de Phone Number [facility] * POTASSIUM (07/04/2020 11:45 EST) Potassium, External 3.2 [facility] Blood VENOUS BLOOD / Unknown 07/04/2020 11:45 EST Historical Provider CHEMISTRY & BLOOD GAS ORDERABLES [facility] * BASIC METABOLIC PANEL (BMP) (06/19/2020 16:00 EDT) GFR, Calculated, External >=60 [facility] Glucose, Serum, External 101 [facility] Calculated Calcium, External [facility] BUN, External 12 [facility] Calcium, External 9.6 [facility] Chloride, External 102 [facility] CO2, External 31.1 [facility] Creatinine, External 0.84 [facility] Fasting?, External [facility] Potassium, External 2.9 [facility] Sodium, External 140 [facility] Blood VENOUS BLOOD / Unknown 06/19/2020 16:00 EDT Historical Provider MD CHEMISTRY & BLOOD GAS ORDERABLES [facility] documented in this encounter Visit Diagnoses Not on filedocumented in this encounter Care Teams Bolt Threader Relationship Specialty Start Date End Date Angelica Murphy [place] [place] [address] PCP - General 08/05/21 documented as of this encounter
--- OUTSIDE RECORDS SUMMARY | 2024-06-02 16:47 | XMS_ITS | Encounter Summary ---
Author Organization [facility] Address [address] [place] [address] Care Team Providers Care Vice Admiral Name Role Phone Angelica Murphy TINY Primary Care Provider [phone] Reason for Visit * Reason Comments Chronic Pain Encounter Details Date Type Department Care Team (Latest Contact Info) Description 05/13/2022 10:00 EDT Office Visit [facility] Comprehensive Pain Program - [address] [place] [address] Julia Montez, PhD [address] [place] [address] [address] [place] [address] Anxiety about health (Primary Dx); [...] syndrome documented in this encounter Care Teams Vice Admiral Relationship Specialty Start Date End Date Angelica Murphy [place] [address] PCP - General 08/05/21 documented as of this encounter
--- OUTSIDE RECORDS SUMMARY | 2024-06-02 16:47 | XMS_ITS | Encounter Summary ---
Author Organization [facility] Address [address] [place] [address] Care Team Providers Care Beef Splitter Name Role Phone Angelica Murphy TINY Primary Care Provider [phone] Encounter Details Date Type Department Care Team [...] on filedocumented in this encounter Care Teams Beef Splitter Relationship Specialty Start Date End Date Angelica Murphy [place] [address] PCP - General 08/05/21 documented as of this encounter
--- OUTSIDE RECORDS SUMMARY | 2024-06-02 16:47 | XMS_ITS | Encounter Summary ---
Author Organization [facility] Address [address] [place] [address] Care Team Providers Care Ramp Service Employee Name Role Phone Angelica Murphy TINY Primary Care Provider [phone] Reason for Visit * Reason Comments Chronic Pain * Consult (See Order Priority) - Specialty Report Received Specialty Diagnoses / Procedures Referred By Stephanie price Referred To Contact Psychiatry Diagnoses Fibromyalgia Other chronic pain Chronic fatigue History of Lyme disease Benny Urias MD [facility] Comprehensive Pain [address] [place] [address] Referral ID Status Reason Start Date Expiration Date Visits Requested Visits Authorized [id number] Specialty Report Received Specialty Services Required 11/13/2021 1 1 Encounter Details Date Type Department Care Team (Latest Contact Info) Description 12/19/2021 10:00 EDT Office Visit [facility] Comprehensive Pain Program - [facility] [place] [address] Nikko Olivas MD [address] [facility] [address] [place] [address] Chronic pain syndrome (Primary Dx) [...] low as $25 at [facility] in [place], or she may be able to find [...] her stress was incr easing as her 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 Barbi [...] summer of 2020 she got a new water resource specialist who started her on a new protocol [...] unit Yoga * Support Group * [facility] [place] [facility] Other Would you be interested [...] Meloxicam Celecoxib Naproxen Diclofenac Narcotic Some opioids 9404-3210 for neck injury. Tapentadol Codeine Hydrocodone Morphine [...] very short walks. Recreational interests: go to [employer], run errands with Violeta, go outside if able Exercise: walk on treadmill twice per week Kinesiophobia Screening Questions (3 adapted from [place] Scale of Kinesiophobia) Barbi responded yes to [...] suicidal ideation. 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 Living Situation Barbi lives in [place] with her , Issa, with partner Violeta, [...] low as $25 at [facility] in [place], or she may be able to find [...] and Medical Cannabis Class while involved at [facility]. - I would recommend that Barbi explore the following while involved at [facility]: Psychologically Informed PT, OT, Yoga, EMDR, Hypnosis, Medical Consult, Nutrition Consult, Sleep Well Class, Medical Cannabis Class and [facility] [place] [facility] - In addition, we will have an Integrative Intake Review with the transdisciplinary team at [facility], and will provide treatment recommendations to [...] Olivas MD 12/16/2021 17:19 Comprehensive Pain Program [facility] documented in this encounter Plan of Treatment Not on file documented as of this encounter Visit Diagnoses Diagnosis Chronic pain syndrome- Primary documented in this encounter Care Teams Ramp Service Employee Relationship Specialty Start Date End Date nAgelica Murphy [place] [address] PCP - General 08/05/21 documented as of this encounter
--- OUTSIDE RECORDS SUMMARY | 2024-06-02 16:47 | XMS_ITS | Encounter Summary ---
Author Organization [facility] Address [address] [place] [address] Care Team Providers Care Claims Support Specialist Name Role Phone Angelica Murphy TINY Primary Care Provider [phone] Reason for Visit * Reason Comments Chronic Pain Encounter Details Date Type Department Care Team (Latest Contact Info) Description 02/18/2022 13:15 EDT Group Visit [facility] Comprehensive Pain Program - [address] [place] [address] Julia Montez, PhD [address] [place] [address] [address] [place] [address] Anxiety about health (Primary Dx); [...] 2. Learn about integrative treatment approach at [facility] 3. Review program expectations and logistics 4. Address questions about getting started Individual Notes: Arrival: prompt Participation throughout session: engaged Barbi stated she has migraine headaches, fibromyalgia, and Lyme disease. When asked to share a fun fact about self, she shared that she is from [facility] and has ducks, including 8 duckling's recently born. Engaged in a discussion about generating group norms. Agreed to maintain confidentiality of personal information shared during group. Obstacles to treatment: n/a Diagnostic impression: ICD-10-CM ICD-9-CM 1. Anxiety about health F41.8 300.09 2. Chronic pain syndrome G89.4 338.4 Rationale for frequency and duration of therapy: Treatment at [facility] includes participating in this 12-week Acceptance [...] Review integrative treatment recommendations sheet and call [phone] to schedule desired appointments * Schedule appointment (preferably 30 min.) with your PCP for 2-3 weeks after graduation documented in this encounter Plan of Treatment Not on file documented as of this encounter Visit Diagnoses Diagnosis Anxiety about health- Primary Chronic pain syndrome documented in this encounter Care Teams Claims Support Specialist Relationship Specialty Start Date End Date Angelica Murphy FNP [address] [address] PCP - General 08/05/21 documented as of this encounter
--- OUTSIDE RECORDS SUMMARY | 2024-06-02 16:47 | XMS_ITS | Encounter Summary ---
Author Organization [facility] Address [address] [place] [address] Care Team Providers Care Installer Helper Name Role Phone Angelica Murphy TINY Primary Care Provider [phone] Reason for Visit * Reason Comments Pain * Referral (Routine) - Authorization Not Required Specialty Diagnoses / Procedures Referred By Stephanie price Referred To Contact Orthopedic Surgery Diagnoses Pain in left hip Reny Garg, ND [address] [address] [facility] [address], [address] [place] [address] Referral ID Status Reason Start Date Expiration Date Visits Requested Visits Authorized [id number] Authorization Not Required 1 1 Encounter Details Date Type Department Care Team (Latest Contact Info) Description 04/24/2022 10:45 EDT Office Visit [facility] Orthopedics & Sport Medicine [address], [address] [place] [address] Grayson Godoy PA-C [address] [facility] [address] [place] [address] Greater trochanteric bursitis of left [...] evaluation of her left hip. Referred from [facility] 04/03/22 per note: has MRI fidnings [...] side ofher hip radiating along the groin. Shannon also had slight amount of discomfort in [...] called to verify the correctpatient, procedure, equipment, it desktop support technician and site/side marked as required. Patient was [...] hip documented in this encounter Results * [place] ARTHROCENTESIS ASPIR&/INJ MAJOR JT/BURSA W/O US (04/24/2022 [...] to verify the correct patient, procedure, equipment, it desktop support technician and site/side marked as required. Patient was [...] needed. added in this encounter Care Teams Installer Helper Relationship Specialty Start Date End Date [place] [address] PCP - General 08/05/21 documented as of this encounter
--- OUTSIDE RECORDS SUMMARY | 2024-06-02 16:47 | XMS_ITS | Encounter Summary ---
Author Organization [facility] Address [address] [place] [address] Care Team Providers Care Greenhouse Transplanter Name Role Phone Angelica Murphy TINY Primary Care Provider [phone] Reason for Visit * Auth/Cert (Routine) Specialty Diagnoses / Procedures Referred By Stephanie price Referred To Contact Diagnoses Arthralgia of left lower leg Arthralgia of left lower leg [M25.562] Procedures OH ARTHROSCOPY HIP W/LABRAL REPAIR [place] ARTHROSCOPY HIP W/ACETABULOPLASTY OH HIP SCOPE/REMV BODY,SYNOVECTOMY OH HIP SCOPE/REMV BODY,PLASTY/RESECTN ARTHROSCOPY W/ LABRAL REPAIR ARTHROSCOPY HIP W/ACETABULOPLASTY ARTHROSCOPY, HIP, SURGICAL; W/SYNOVECTOMY CHONDROPLASTY, HIP, ARTHROSCOPIC Referral ID Status Reason Start Date Expiration Date Visits Re quested Visits Authorized [id number] 1 1 Encounter Details Date Type Department Care Team (Late st Contact Info) Description 09/12/2022 6:26 EST - 09/12/2022 12:[address] [facility] Operating Room [address] [place] [address] Farzad Garza MD [address] [place] [address] Discharge Disposition: Home or Self Care Social [...] additional Tylenol if on Vicodin, Percocet, or [place] unless instructed to by a doctor No [...] Code Departure Means Destination Home or Self Jail documented in this encounter H&P Notes * [...] facility-administered medications prior to visit. ? OBJECTIVE: [facility] 08/28/2017 On physical exam, the patient is [...] OF : 73 SURGEON: Latrice Garza MD OSD CLERK: Taylor oTvar DATE OF SURGERY: 09/12/22 PREOPERATIVE DIAGNOSIS: 1. [...] A parallel capsulotomy was performed with the Dysart blade approximately 1 cm distal labrum to [...] at the end the case. A skilled intellectual property legal assistant was necessary to complete the procedure [...] - 09/12/2022 0930 EST Date: 09/12/2022 Location: [facility] [place] Name: Barbi Ivey, : 1975, [...] (Removed) Implants Type Name Action Serial No. [place] ANCHOR SUTURE FIBERWIRE 1.8MM Q FIX [id number] - [id number] Implanted [place] ANCHOR SUTURE FIBERWIRE 1.8MM Q FIX [id number] - [id number] Implanted [place] ANCHOR SUTURE FIBERWIRE 1.8MM Q FIX [id number] - [id number] Implanted Staff: Hair Preparer: Kecia Walters RN Horse Wrangler: Azalea Erickson Relief Hair Preparer: Stefania Meraz RN OR TECH: Brenna Hoyt Extension Work Instructor: Taylor Tovar Indications: Barbi Ivey is an [...] EST) 09/17/2022 12:2 9 EST Scan 2 Ornamenter Hand PROCEDURE/MINOR JIGAR GICAL ORDERABLES documented in this [...] er: Farzad Garza MD - Comment: lot: [id number] exp: 02/2023) chlorhexidine gluconate 2 % cloth [...] 09/12/2022 documented in this encounter Care Teams Greenhouse Transplanter Relationship Specialty Start Date End Date [place] [address] PCP - General 08/05/21 documented as of this encounter
--- OUTSIDE RECORDS SUMMARY | 2024-06-02 16:47 | XMS_ITS | Encounter Summary ---
Author Organization [facility] Address [address] [place] [address] Care Team Providers Care Regrinder Operator Name Role Phone Angelica Murphy TINY Primary Care Provider [phone] Reason for Visit * Reason Comments Follow-up Encounter Details Date Type Department Care Team (Late st Contact Info) Description 11/13/2021 10:00 EDT Office Visit [facility] [address] [facility] Second Floor [place], [place] [id number] Benny Urias MD Fibromyalgia (Primary Dx); Other chronic pain; [...] classes, and others. ?? For more information: [email or web address]/medcenter/liyzmbacymy-zux-ihtahrxz/comprehensive- pain-program The will call in a prescription for LDN to the [facility] if you decide on this option (if your PCP is unable to refill your prior Rx through the [facility] in [place]) Of you chose this option I will [...] you- at the dose ordered- by the [facility] on [facility] in [place] ??? The dose is SIGNIFICANTLY lower than [...] to be convinced not hydrochlorothiazide [facility] [place] it was hereditary Rx labs every 2months Continued K replacement, amiloride Continued hydrochlorothiazide for BP control given intolerance of other medications Continued Lyme treatment- with Dr Reny Marroquin ND- at [place], [place] Western Blot IgG 02/05/21 positive However [...] to Rx up to 4.5 mg through [facility] if needed- states cost (30/month) [...] classes, and others. ?? For more information: https://www.[facility].org/medcenter/nmzjienevlo-jzk-xzuwmlnj/comprehensive- pain-program I will call in a prescription for LDN to the [facility] if you decide on this option (if your PCP is unable to refill your prior Rx through the [facility] in [place]) If you chose this option I will [...] you- at the dose ordered- by the [facility] on [facility] in [place] ??? The dose is SIGNIFICANTLY lower than [...] daily. added in this encounter Care Teams Regrinder Operator Relationship Specialty Start Date End Date Angelica uMrphy FNP [address] [place] [address] PCP - General 08/05/21 documented as of this encounter
--- OUTSIDE RECORDS SUMMARY | 2024-06-02 16:47 | XMS_ITS | Encounter Summary ---
Author Organization [facility] Address [address] [place] [address] Care Team Providers Care Abap Developer Name Role Phone Angelica Murphy TINY Primary Care Provider [phone] Reason for Visit * Reason Comments Chronic Pain Encounter Details Date Type Department Care Team (Latest Contact Info) Description 05/20/2022 10:00 EDT Office Visit [facility] Comprehensive Pain Program - [address] [place] [address] Julia Montez, PhD [address] [place] [address] [address] [place] [address] Anxiety about health (Primary Dx); [...] syndrome documented in this encounter Care Teams Abap Developer Relationship Specialty Start Date End Date Angelica Murphy [place] [address] [place] [address] PCP - General 08/05/21 documented as of this encounter
--- OUTSIDE RECORDS SUMMARY | 2024-06-02 16:47 | XMS_ITS | Encounter Summary ---
Author Organization [facility] Address [address] [place] [address] Care Team Providers Care Voice Data Communications Engineer Name Role Phone Angelica Murphy TINY Primary Care Provider [phone] Reason for Visit * Reason Comments Chronic Pain Encounter Details Date Type Department Care Team (Latest Contact Info) Description 04/08/2022 10:00 EDT Office Visit [facility] Comprehensive Pain Program - [address] [place] [address] Julia Montez, PhD [address] [place] [address] [address] [place] [address] Anxiety about health (Primary Dx); [...] syndrome documented in this encounter Care Teams Voice Data Communications Engineer Relationship Specialty Start Date End Date Angelica Murphy [place] [address] PCP - General 08/05/21 documented as of this encounter
--- OUTSIDE RECORDS SUMMARY | 2024-06-02 16:47 | XMS_ITS | Encounter Summary ---
Author Organization [facility] Address [address] [place] [address] Care Team Providers Care Reo Asset Manager Name Role Phone Arlen Ryan FIORELLA Primary Care Provider + Reason for Visit * Reason Comments Follow-up Encounter Details Date Type Department Care Team (Late st Contact Info) Description 04/03/2021 15:[address] [facility] Primary Care [address] [facility] Second Floor [place], [place] [id number] Benny Urias MD Hypokalemia (Primary Dx); Hypomagnesemia [...] ?? I have placed a REFERRAL TO [facility] RENAL department to reassess; it has been several years since you were last seen by them ON REVIEW OF YOUR Qardio ALLERGIX IGG FOOD SENSITIVITY PANEL Milk is [...] solids Whey Yogurt DAIRY FREE SUBSTITUTES INCLUDE [place] mild, coconut milk, soy milk- organic is recommended To help you get started, [employer] is a great resource for diet information ?? Https://Green Phosphor/?s=dairy+free FOLLOW UP IN 2-3 MONTHS- please call [...] ?? Working with Reny Marroquin ND- at [place], [place] Lyme Western Blot IgG 02/05/21 positive Discussed treatment options w/ Dr Marroquin- for current Lyme sx with h/o infection Herbals started- Biocidin LSF + mitochondrial NRG ([employer]) ?? After 2 weeks- doing better Was [...] HPI Objective: LMP 08/28/2017 Physical Exam PHONE Qardio ALLERGIX PROFILE 01/20/21 collection +2-3 moderate sensitivity to Milk Assessment: Barbi returns today for integrative follow up. First seen 10/17/20 for help with chronic fatigue, FM This flare began in summer 2018- during a period of significant stress ?? 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 [place] burnt out by the end of the [...] ?? I have placed a REFERRAL TO [facility] RENAL department to reassess; it has been [...] solids Whey Yogurt DAIRY FREE SUBSTITUTES INCLUDE [place] mild, coconut milk, soy milk- organic is recommended To help you get started, [employer] is a great resource for diet information ?? Https://Green Phosphor/?s=dairy+free FOLLOW UP IN 2-3 MONTHS- please call [...] metabolism documented in this encounter Care Teams Reo Asset Manager Relationship Specialty Start Date End Date Arlen Ryan ND [address] [place] [phone] PCP - General 02/21/20 08/04/21 documented as of this encounter
--- OUTSIDE RECORDS SUMMARY | 2024-06-02 16:47 | XMS_ITS | Encounter Summary ---
Author Organization [facility] Address [address] [place] [address] Care Team Providers Care Garden Consultant Name Role Phone Arlen Ryan ND Primary Care Provider + Reason for Visit * Reason Onset Date Comments Labs Only 10/24/2020 Encounter Details Date Type Department Care Team ([facility] st Contact Info) Description 10/24/2020 Telephone [facility] [address] [facility], Second Floor [place], [place] [id number] Arlen Ryan ND [address] [place] [phone] Labs Only Social History Tobacco Use Types [...] received via fax patients lab results from [facility]. Scanned into patientMeaningo. Had OV with Dr Benny Urias on 10/17/20 for a new patient consult. documented in this encounter Plan of Treatment Not on file documented as of this encounter Visit Diagnoses Not on filedocumented in this encounter Care Teams Garden Consultant Relationship Specialty Start Date End Date Arlen Ryan ND [address] [place] [phone] PCP - General 02/21/20 08/04/21 documented as of this encounter
--- OUTSIDE RECORDS SUMMARY | 2024-06-02 16:47 | XMS_ITS | Encounter Summary ---
Author Organization [facility] Address [address] [place] [address] Care Team Providers Care Sales Office Manager Name Role Phone Angelica Murphy TINY Primary Care Provider [phone] Reason for Referral * PT/OT/ST (Routine/Next Available) - Closed Specialty Diagnoses / Procedures Referred By Stephanie price Referred To Contact Diagnoses Arthralgia of left lower leg Farzad Garza MD [address] [place] [address] [address] [place] [address] Referral ID Status Reason Start Date Expiration Date V isits Requested Visits Authorized [id number] Closed Specialty Services Required 07/21/2022 1 1 Question Answer Surgery (and Date): Left Hip Scope, DOS 09/12/2021 Reason for Request: Left Hip Scope, DOS 09/12/21 Comments [facility] [address] [place] [address], [address] [place], [place]?? [address] Phone:?? [phone] Fax:?? [phone] Reason for Visit * Reason Comments Follow-up Encounter Details Date Type Department Care Team (Late st Contact Info) Description 07/21/2022 10:15 EST Office Visit [facility]ics [facility] Medicine [address], [address] [place] [address] Farzad Garza MD [address] [address] Arthralgia of left lower leg (Primary Dx) [...] 07/21/2022 documented in this encounter Care Teams Sales Office Manager Relationship Specialty Start Date End Date Angelica Murphy [place] [address] PCP - General 08/05/21 documented as of this encounter
--- OUTSIDE RECORDS SUMMARY | 2024-06-02 16:47 | XMS_ITS | Encounter Summary ---
Author Organization [facility] Address [address] [place] [address] Care Team Providers Care Escalator Installer Name Role Phone Angelica Murphy TINY Primary Care Provider [phone] Reason for Visit * Reason Onset Date Comments Appointment Related 03/27/2022 Encounter Details Date Type Department Care Team (Late st Contact Info) Description 03/27/[address] [id number] Therapy, Physical Appointment Related Social History Tobacco [...] - Nubia Barker - 03/27/[address]22 [address] [address] Telephone Intake Information for Scheduling NEW Patients for Therapy Diagnosis: G89.4 (ICD-10-CM) - 338.4 (ICD-9-CM) - Chronic pain syndrome Date Scheduled: 05/15/2022 Professor Of Management needed? No Primary Insurance: Medicaid [place] Medicaid [...] on filedocumented in this encounter Care Teams Escalator Installer Relationship Specialty Start Date End Date Angelica Murphy [place] [address] PCP - General 08/05/21 documented as of this encounter
--- OUTSIDE RECORDS SUMMARY | 2024-06-02 16:47 | XMS_ITS | Encounter Summary ---
Author Organization [facility] Address [address] [place] [address] Care Team Providers Care Escrow Representative Name Role Phone Angelica Murphy TINY Primary Care Provider [phone] Encounter Details Date Type Department Care Team [...] on filedocumented in this encounter Care Teams Escrow Representative Relationship Specialty Start Date End Date Angelica Murphy [place] [address] PCP - General 08/05/21 documented as of this encounter
--- OUTSIDE RECORDS SUMMARY | 2024-06-02 16:47 | XMS_ITS | Encounter Summary ---
Author Organization [facility] Address [address] [place] [address] Care Team Providers Care Loading Unit Operator Name Role Phone Angelica Murphy TINY Primary Care Provider [phone] Reason for Visit * Reason Onset Date Comments DME 09/02/2022 Encounter Details Date Type Department Care Team (Late st Contact Info) Description 09/02/2022 Telephone [facility] Orthopedics & Sport Medicine [address] [place] [address] Zoie Lovell, FANNY DME Social [...] on filedocumented in this encounter Care Teams Loading Unit Operator Relationship Specialty Start Date End Date Angelica Murphy [place] [address] PCP - General 08/05/21 documented as of this encounter
--- OUTSIDE RECORDS SUMMARY | 2024-06-02 16:47 | XMS_ITS | Encounter Summary ---
Author Organization [facility] Address [address] [place] [address] Care Team Providers Care Stereo Equipment Salesperson Name Role Phone Angelica Murphy TINY Primary Care Provider [phone] Reason for Visit * Reason Comments Chronic Pain Encounter Details Date Type Department Care Team (Latest Contact Info) Description 04/22/2022 13:15 EDT Group Visit [facility] Comprehensive Pain Program - [address] [place] [address] Julia Montez, PhD [address] [place] [address] [address] [place] [address] Anxiety about health (Primary Dx); [...] Barbi stated that she enjoyed glamping in [facility] last week. Discussed and explored barriers and [...] syndrome documented in this encounter Care Teams Stereo Equipment Salesperson Relationship Specialty Start Date End Date Angelica Murphy F[place] [facility] [address] PCP - General 08/05/21 documented as of this encounter
--- OUTSIDE RECORDS SUMMARY | 2024-06-02 16:47 | XMS_ITS | Encounter Summary ---
Author Organization [facility] Address [address] [place] [address] Care Team Providers Care Power Line Lineman Name Role Phone Arlen Ryan FIORELLA Primary Care Provider + Reason for Visit * Reason Comments Follow-up Encounter Details Date Type Department Care Team (Latest Contact Info) Description 12/26/2020 14:[address] [facility] Primary Care [address] [facility], Second Floor [place], [place] [id number] Benny Urias MD Chronic fatigue (Primary Dx); [...] T3, free T4 ?? Cortisol level [employer] ALLERGIX TEST KIT WILL BE SENT TO [...] on how to conduct the test; call [employer] Service or message me with any questions you may have ?? Once completed and returned it will take ~15 days for results to be released ?? We will review results at your next scheduled visit, and use the results to create a targeted elimination diet for you FOOD SENSITIVITIES TESTED IN THE ALLERGIX PROFILE INCLUDE ??? [place], aspergillus, beef, cantaloupe, cashew, chicken, corn, crab, [...] FOR YOU Dr Reny Marroquin ND- at [facility] [email or web address] A REFERRAL TO [facility] ([facility]) will be placed AT [...] PT twice a week-regular and pool therapy [place] chronic Lyme eval would be helpful Food sensitivity testing- IgG- 2016 ?? Positives to milk dairy, chicken eggs, sugar cane, bananas, pineapples, amarynth, cabbage, carrots, celery, tomato, mushroom and raddish ?? Eliminated for >1 year- felt really good- digestively Supplements ?? Was already on magnesium- PCP- 400 mg bid ?? Added O3- [employer] ?? 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 [place] burnt out by the end of the summer ?? Fatigue persists ?? Hard to walk to mailbox 1/4 mile ?? Inclines are the hardest- whole buttock and torso hurts / cramps, can't to orange picker machine operator legs and keepgoing ?? Going up stairs [...] T3, free T4 ?? Cortisol level [employer] ALLERGIX TEST KIT WILL BE SENT TO [...] on how to conduct the test; call [employer] Service or message me with any questions you may have ?? Once completed and returned it will take ~15 days for results to be released ?? We will review results at your next scheduled visit, and use the results to create a targeted elimination diet for you FOOD SENSITIVITIES TESTED IN THE ALLERGIX PROFILE INCLUDE ??? [place], aspergillus, beef, cantaloupe, cashew, chicken, corn, crab, [...] FOR YOU Dr Reny Marroquin ND- at [facility] [email or web address] A REFERRAL TO [facility] ([facility]) will be placed AT [...] deficiency documented in this encounter Care Teams Power Line Lineman Relationship Specialty Start Date End Date Arlen Ryan ND [address] [place] [address] [place] [phone] PCP - General 02/21/20 08/04/21 documented as of this encounter
--- OUTSIDE RECORDS SUMMARY | 2024-06-02 16:47 | XMS_ITS | Encounter Summary ---
Author Organization [facility] Address [address] [place] [address] Care Team Providers Care Site Surveyor Name Role Phone Angelica Murphy TINY Primary Care Provider [phone] Encounter Details Date Type Department Care Team [...] on filedocumented in this encounter Care Teams Site Surveyor Relationship Specialty Start Date End Date Angelica Murphy [place] [address] PCP - General 08/05/21 documented as of this encounter
--- OUTSIDE RECORDS SUMMARY | 2024-06-02 16:47 | XMS_ITS | Encounter Summary ---
Author Organization [facility] Address [address] [place] [address] Care Team Providers Care Cage Shift Manager Name Role Phone Angelica Murphy TINY Primary Care Provider Reason for Visit * Reason Comments Chronic Pain Encounter Details Date Type Department Care Team (Latest Contact Info) Description 02/25/2022 13:15 EDT Group Visit [facility] Comprehensive Pain Program - [address] [place] [address] Julia Montez, PhD [address] [place] [address] [address] [place] [address] Anxiety about health (Primary Dx); [...] at least one integrative therapy by calling [phone]. documented in this encounter Plan of Treatment Not on file documented as of this encounter Visit Diagnoses Diagnosis Anxiety about health- Primary Chronic pain syndrome documented in this encounter Care Teams Cage Shift Manager Relationship Specialty Start Date End Date Angelica Murphy FNP [place] [facility] [place] [address] PCP - General 08/05/21 documented as of this encounter
--- OUTSIDE RECORDS SUMMARY | 2024-06-02 16:47 | XMS_ITS | Encounter Summary ---
Author Organization [facility] Address [address] [place] [address] Care Team Providers Care Skill Labor Name Role Phone Angelica Murphy TINY Primary Care Provider Reason for Visit * Reason Comments Chronic Pain Encounter Details Date Type Department Care Team (Latest Contact Info) Description 03/04/2022 13:15 EDT Group Visit [facility] Comprehensive Pain Program - [address] [place] [address] Julia Montez, PhD [address] [place] [address] [address] [place] [address] Anxiety about health (Primary Dx); [...] syndrome documented in this encounter Care Teams Skill Labor Relationship Specialty Start Date End Date Angelica Murphy [place] [address] PCP - General 08/05/21 documented as of this encounter
--- OUTSIDE RECORDS SUMMARY | 2024-06-02 16:47 | XMS_ITS | Encounter Summary ---
Author Organization [facility] Address [address] [place] [address] Care Team Providers Care Nursing Professor Name Role Phone Angelica Murphy TINY Primary Care Provider [phone] Reason for Visit * Reason Comments Chronic Pain Encounter Details Date Type Department Care Team (Latest Contact Info) Description 05/13/2022 13:15 EDT Group Visit [facility] Comprehensive Pain Program - [address] [place] [address] Julia Montez, PhD [address] [place] [address] [address] [place] [address] Anxiety about health (Primary Dx); [...] Group Note - Julia Montez, PhD - 05/13/2022 1725 EDT Date: 05/13/2022 Start Time: 13:15 End [...] encouraged to schedule a momentum meeting at [facility], if not already completed, to assist in the transition back to the primary snf. Ongoing Home Practice: ??? Review Momentum Plan Workbook ??? Use My GamePlan Application Infrastructure Engineer to set specific goals and track related activities ??? Schedule one-on-one health coaching session to help complete GamePlan Application Infrastructure Engineer and/or Momentum Plan Workbook ??? Bring Momentum [...] anxiety documented in this encounter Care Teams Nursing Professor Relationship Specialty Start Date End Date Angelica Murphy [place] [address] PCP - General 08/05/21 documented as of this encounter
--- OUTSIDE RECORDS SUMMARY | 2024-06-02 16:48 | XMS_ITS | Encounter Summary ---
Author Organization [facility] Address [address] [place] [address] Care Team Providers Care Senior Technical Architect Name Role Phone Law Santigao MD Primary Care Provider [phone] Encounter Details Date Type Department Care Team (Late st Contact Info) Description 07/21/2011 Results Only Imaging [facility] [place] [phone] Jim Wei MD Social History Tobacco Use [...] and Symptoms/Comments: ??Old injury. prior films at [facility]. continued pain and decreased ROM Comparison: None [...] and Symptoms/Comments: Old injury. prior films at [facility]. continued pain and decreased ROM Comparison: None [...] filedocumented in this encounter Care Teams Senior Technical Architect Relationship Specialty Start Date End Date Law Santiago MD [address] [address] PCP - General 02/03/11 08/10/11 documented as of this encounter
--- OUTSIDE RECORDS SUMMARY | 2024-06-02 16:48 | XMS_ITS | Encounter Summary ---
Author Organization [facility] Address [address] [place] [address] Care Team Providers Care Botany Teacher Name Role Phone SyAlex mascorroyoandy BARROS Primary Care Provider + Reason for Referral * Radiology Services (Routine) - Closed Specialty Diagnoses / Procedures Referred By Stephanie t Referred To Contact Diagnoses Polyarthralgia Procedures XR SACROILIAC JOINTS 3 OR MORE VIEWS Audi Smart MD [address] [place] [phone] Referral ID Status Reason Start Date Expiration Date Visits Re quested Visits Authorized [id number] Closed 08/28/2020 1 1 * Radiology Services (Routine) - Closed Specialty Diagnoses / Procedures Referred By Stephanie price Referred To Contact Diagnoses Polyarthralgia Procedures XR CERVICAL SPINE 2-3 VIEWS Audi Smart MD [address] [place] [phone] Referral ID Status Reason Start Date Expiration Date Visits Re quested Visits Authorized [id number] Closed 08/28/2020 1 1 * Radiology Services (Routine) - Closed Specialty Diagnoses / Procedures Referred By Stephanie price Referred To Contact Diagnoses Polyarthralgia Procedures XR LUMBAR SPINE 2-3 VIEWS Audi Smart MD [address] [place] [phone] Referral ID Status Reason Start Date Expiration Date Visits Re quested Visits Authorized [id number] Closed 08/28/2020 1 1 Reason for Visit * Radiology Services (Routine) - Closed Specialty Diagnoses / Procedures Referred By Stephanie price Referred To Contact Diagnoses Polyarthralgia Procedures XR LUMBAR SPINE 2-3 VIEWS Audi Smart MD [address] [place] [phone] Referral ID Status Reason Start Date Expiration Date Visits Re quested Visits Authorized [id number] Closed 08/28/2020 1 1 Encounter Details Date Type Department Care Team (Latest Contact Info) Description 08/28/2020 15:56 EST - 08/28/2020 23:59 EST Hospital Encounter [facility] Radiology Xray - [address] [address] Polyarthralgia Discharge Disposition: Home or Self Care [...] deformity. IMPRESSION Normal examination. Audi Smart MD [facility] IMAGI NG ORDERABLES * XR CERVICAL [...] or subluxation is seen. Audi Smart MD [facility] IMAGI NG ORDERABLES * XR LUMBAR [...] sites documented in this encounter Care Teams Botany Teacher Relationship Specialty Start Date End Date Arlen Ryan ND [address] [place] [phone] PCP - General 02/21/20 08/04/21 documented as of this encounter
--- OUTSIDE RECORDS SUMMARY | 2024-06-02 16:48 | XMS_ITS | Encounter Summary ---
Author Organization [facility] Address [address] [place] [address] Care Team Providers Care Qa Test Analyst Name Role Phone Jim Wei MD Primary Care Provider Un available Encounter Details Date Type Department Care Team (Latest Contact Info) Description 08/12/2011 17:37 EST - 08/12/2011 23:59 EST Hospital Encounter [facility] [address] [place] [address] Jim Wei MD Discharge Disposition: Home or [...] Code Departure Means Destination Home or Self Fdc documented in this encounter Plan of Treatment Not on file documented as of this encounter Visit Diagnoses Not on filedocumented in this encounter Care Teams Qa Test Analyst Relationship Specialty Start Date End Date Jim Wei MD PCP - General 08/11/11 02/20/20 documented as of this encounter
--- OUTSIDE RECORDS SUMMARY | 2024-06-02 16:48 | XMS_ITS | Encounter Summary ---
Author Organization [facility] Address [address] [place] [address] Care Team Providers Care Clearance Rep Name Role Phone Jim Wei MD Primary Care Provider Un available Encounter Details Date Type Department Care Team (Late st Contact Info) Description 09/19/2016 Historical Results Only [facility] - Main [address] [address] Naga Bhatti MD Social History Tobacco Use [...] (09/19/2016 11:21 EST) THYROID [facility] - [facility] 2.81 0.35 - 5.50 uIU/mL 09/19/2016 12:21 EST [facility] 09/19/2016 11:2 1 EST 09/19/2016 11:21 EST Narrative [facility] - 09/19/2016 12:21 EST Does PT Have a Latex Allergy? NO Naga Bhatti MD CHEMISTRY & BLOOD GA S ORDERABLES [facility] documented in this encounter Visit Diagnoses Not on filedocumented in this encounter Care Teams Clearance Rep Relationship Specialty Start Date End Date Jim Wei MD PCP - General 08/11/11 02/20/20 documented as of this encounter
--- OUTSIDE RECORDS SUMMARY | 2024-06-02 16:48 | XMS_ITS | Encounter Summary ---
Author Organization [facility] Address [address] [place] [address] Care Team Providers Care Observatory Director Name Role Phone Law Santiago MD Primary Care Provider [phone] Encounter Details Date Type Department Care Team (Late st Contact Info) Description 08/05/2011 Results Only Imaging [facility] [phone] Jim Wei MD Social History Tobacco Use [...] on filedocumented in this encounter Care Teams Observatory Director Relationship Specialty Start Date End Date Law Santiago MD [address] [facility] [address] [place] [address] PCP - General 02/03/11 08/10/11 documented as of this encounter
--- OUTSIDE RECORDS SUMMARY | 2024-06-02 16:48 | XMS_ITS | Encounter Summary ---
Author Organization [facility] Address [address] [place] [address] Care Team Providers Care General Manager In Training Name Role Phone Jim Wei MD Primary Care Provider Un available Encounter Details Date Type Department Care Team (Late st Contact Info) Description 02/27/2015 Historical Results Only [facility] Radiology Results [address] [place], [place] [address] Naga Bhatti MD Social History Tobacco Use [...] will contact ? your patient directly. ? ORIGINATION SPECIALIST:kad ?Reported By: Bhupinder Handy MD ? CC: ? Transcribed Date/Time: 02/28/2015 (1458) ? Pipeman: LANI ? Printed Date/Time: 02/07/2019 (2720) ? PAGE 1 ? Signed Report ? [...] is needed we willcontact your patient directly. ORIGINATION SPECIALIST:yue Reported By: Bhupinder Handy MD CC: Transcribed Date/Time: 02/28/2015 (1458) Pipeman: LANI Printed Date/Time: 02/07/2019 (9253) PAGE 1 Signed Report Naga Bhatti MD IMG MAMMOGRAPHY PAIGE KUMAR documented in this encounter Visit Diagnoses Not on filedocumented in this encounter Care Teams General Manager In Training Relationship Specialty Start Date End Date Jim Wei MD PCP - General 08/11/11 02/20/20 documented as of this encounter
--- OUTSIDE RECORDS SUMMARY | 2024-06-02 16:48 | XMS_ITS | Encounter Summary ---
Author Organization [facility] Address [address] [place] [address] Care Team Providers Care Hand Ii Cutter Name Role Phone Mihn Penaloza MD Primary Care Provider [phone] Reason for Visit * Reason Comments Shoulder Pain Right Encounter Details Date Type Department Care Team (Latest Contact Info) Description 01/30/2011 15:00 EDT Office Visit [facility] Rehabilitation Therapy [address] [address] Sai Jimenez MD [address] [place] [phone] Carpal tunnel syndrome; Bursitis, subacromial/subdelto id Discharge [...] - HMM Job ID: SM Doc ID: [id number] Ext Doc ID: [id number] cc: Law Santiago MD documented in this encounter Miscellaneous Notes * Scanned Note-Null - Ged Preparation Teacher, Scan - 01/31/2011 1411 EDTAssociated Order(s): ORDERS - SCANNED documented in this encounter Plan of Treatment Not on file documented as of this encounter Procedures Procedure Name Priority Date/Time Associated Diagnosis Comments ORDERS - SCANNED 01/31/2011 14:1 1 EDT documented in this encounter Results * ORDERS - SCANNED (01/31/2011 14:11 EDT) 01/31/2011 14:1 1 EDT Narrative Procedure Note Ged Preparation Teacher, Scan - 01/31/2011 14:11 EDT Scan Ged Preparation Teacher ADMISSION ORDERABLES documented in this encounter Visit [...] 08/28/2020 added in this encounter Care Teams Hand Ii Cutter Relationship Specialty Start Date End Date Minh Penaloza MD [address] [place] [address] PCP - General 01/16/11 02/02/11 documented as of this encounter
--- OUTSIDE RECORDS SUMMARY | 2024-06-02 16:48 | XMS_ITS | Encounter Summary ---
Author Organization [facility] Address [address] [place] [address] Care Team Providers Care Field Operations Manager Name Role Phone SyAlex mascorroyoandy BARROS Primary Care Provider + Reason for Referral * Radiology Services (Routine) - Closed Specialty Diagnoses / Procedures Referred By Stephanie t Referred To Contact Diagnoses Polyarthralgia Procedures XR SACROILIAC JOINTS 3 OR MORE VIEWS Audi Smart MD [address] [place] [phone] Referral ID Status Reason Start Date Expiration Date Visits Re quested Visits Authorized [id number] Closed 08/28/2020 1 1 * Radiology Services (Routine) - Closed Specialty Diagnoses / Procedures Referred By Stephanie price Referred To Contact Diagnoses Polyarthralgia Procedures XR CERVICAL SPINE 2-3 VIEWS Audi Smart MD [address] [place] [phone] Referral ID Status Reason Start Date Expiration Date Visits Re quested Visits Authorized [id number] Closed 08/28/2020 1 1 * Radiology Services (Routine) - Closed Specialty Diagnoses / Procedures Referred By Contac t Referred To Contact Diagnoses Polyarthralgia Procedures XR LUMBAR SPINE 2-3 VIEWS Audi Smart MD [address] [place] [phone] Referral ID Status Reason Start Date Expiration Date Visits Re quested Visits Authorized [id number] Closed 08/28/2020 1 1 Reason for Visit * Reason Comments New Patient Visit Back Pain back pain to top of head Tingling mostly right sided * Referral (Routine) - Receiving Office to Obtain Authorization Specialty Diagnoses / Procedures Referred By Stephanie price Referred To Contact Rheumatology Diagnoses Pain in unspecified joint Raised antibody titer Angelica Murphy FNP [address] [place] [address] [place] [address] [address] [place] [address] Referral ID Status Reason Start Date Expiration Date Visits Requested Visits Authorized [id number] Receiving Office to Obtain Authorization 1 1 Encounter Details Date Type Department Care Team (Late st Contact Info) Description 08/28/2020 14:00 EST Office Visit [facility] Rheumatology & Immunology - [address] [id number] Audi Smart MD [address] [place] [phone] Positive NOLAN (antinuclear antibody) (Primary Dx); [...] file Gets together: Not on file Attends adventist service: Not on file Active member of [...] Range SM (Gutierrez) Antibody 2.2 <20.0 Units SECURITIES RESEARCH ANALYST ANTIBODIES BY LEBRON Result Value Ref Range SECURITIES RESEARCH ANALYST Antibody 2.2 <20.0 Units SSA ANTIBODIES BY [...] evidence of autoimmune disease. - will check NOLAN subset antibodies (dsDNA, SM, SECURITIES RESEARCH ANALYST, SSA, SSB) -> these were negative - [...] Anti-Thyroglobulin 26 <=60 U/mL 2019 19:11 EST [facility] Thyroperoxidase Ab <28 <=60 U/mL 2019 19:11 EST [facility] Blood VENOUS BLOOD / Unknown Venipuncture / Unknown 08/28/2020 16:57 EST 08/28/2020 17:49 EST Audi Smart MD CHEMISTRY & BLOOD GA S ORDERABLES Performing Organization Address City/[facility]/ZIP Co de Phone Number [facility] [address] [place] [address] * CCP ANTIBODIES (08/28/2020 16:57 EST) CCP Antibodies <2.5 <5.0 U/mL 08/29/2020 8:24 EST [facility] Blood VENOUS BLOOD / Unknown Venipuncture / Unknown 08/28/2020 16:57 EST 08/28/2020 17:49 EST Audi Smart MD IMMUNOLOGY AND SEROL OGY ORDERABLES Performing Organization Address [facility]/ZIP Co de Phone Number [facility] [address] [place] [address] * RHEUMATOID FACTOR (08/28/2020 16:57 EST) Rheumatoid Factor <8.6 <12.0 IU/mL 08/28/2020 18:26 EST [facility] Blood VENOUS BLOOD / Unknown Venipuncture / Unknown 08/28/2020 16:57 EST 08/28/2020 17:49 EST Audi Smart MD CHEMISTRY & BLOOD GA S ORDERABLES Performing Organization Address City/[facility]/ZIP Co de Phone Number [facility] [address] [place] [address] * SSB ANTIBODIES BY LEBRON (08/28/2020 16:57 EST) SSB Antibody 3.2 <20.0 Units 08/30/2020 13:42 EST [facility] Comment: ? Negative: <20.0 [...] AND SEROL JEAN ORDERABLES Performing Organization Address City/State/[facility] Co de Phone Number [facility] [address] [place] [address] * SSA ANTIBODIES BY LEBRON (08/28/2020 16:57 EST) SSA Antibody 1.9 <20.0 Units 08/30/2020 13:40 EST [facility] Comment: ? Negative: <20.0 [...] AND SEROL OGJesusita ORDERABLES Performing Organization Address [facility] de Phone Number [facility] [address] [place] [address] * SECURITIES RESEARCH ANALYST ANTIBODIES BY LEBRON (08/28/2020 16:57 EST) SECURITIES RESEARCH ANALYST Antibody 2.2 <20.0 Units 08/30/2020 13:45 EST [facility] Comment: ? Negative: <20.0 Units ? Weak Positive: 20.0 - 39.9 Units ? Moderate Positive: 40.0 - 80.0 Units ? Strong Positive: >80.0 Units Results were obtained with the [employer] Quanta Lite SECURITIES RESEARCH ANALYST LEBRON. SECURITIES RESEARCH ANALYST values obtained with different talcer's assay methods may not be used interchangeaby. ??The magnitude of the reported IgG levels cannot be be correlated to an endpoint titer. A positive result in the Quanta Lite SECURITIES RESEARCH ANALYST LEBRON indicates the presence of antibodies reactive with the SECURITIES RESEARCH ANALYST/Sm complex but cannot distinguish between anti-Sm and anti-SECURITIES RESEARCH ANALYST activity. Blood VENOUS BLOOD / Unknown Venipuncture / Unknown 08/28/2020 16:57 EST 08/28/2020 17:49 EST Audi Smart MD IMMUNOLOGY AND SEROL JEAN ORDERABLES Performing Organization Address [facility] de Phone Number [facility] [address] [place] [address] * SM (GUTIERREZ) ANTIBODY (08/28/2020 16:57 EST) SM (Gutierrez) Antibody 2.2 <20.0 Units 08/30/2020 13:44 EST [facility] Comment: ? Negative: <20.0 [...] AND SEROL OGJesusita ORDERABLES Performing Organization Address [facility] de Phone Number [facility] [address] [place] [address] * ANTI DNA (DOUBLE STRANDED) (08/28/2020 16:57 EST) [facility] Anti-DNA (Double Stranded) <12.3 <30.0 IU/mL 08/30/2020 12:00 EST [facility] Comment: ? Negative: ??<30.0 IU/mL ? Borderline Positive: ??30.0 - 75.0 IU/mL ? Positive: ??>75.0 IU/mL Results were obtained with the [employer] QUANTA Lite dsDNA SC LEBRON assay on the [employer] DS[employer]. Blood VENOUS BLOOD / Unknown Venipuncture / Unknown 08/28/2020 16:57 EST 08/28/2020 17:49 EST Audi Smart MD IMMUNOLOGY AND SEROL OGJesusita ORDERABLES Performing Organization Address [facility] de Phone Number [facility] [address] [place] [address] * XR SACROILIAC JOINTS 3 OR MORE [...] deformity. IMPRESSION Normal examination. Audi Smart MD [facility] DIAGNOSTIC IMAGI NG ORDERABLES [...] or subluxation is seen. Audi Smart MD [facility] DIAGNOSTIC IMAGI NG ORDERABLES [...] daily. added in this encounter Care Teams Field Operations Manager Relationship Specialty Start Date End Date Arlen Ryan ND [address] [place] [phone] PCP - General 02/21/20 08/04/21 documented as of this encounter
--- OUTSIDE RECORDS SUMMARY | 2024-06-02 16:48 | XMS_ITS | Continuity of Care Document ---
Author Organization [place] - RADHA SUTHERLAND , Main Office--[place] Address [address] [address] Assessment Encounter Date Assessment Date Assessment LastModified [...] time allotted to visit was 35 min. [email or web address] Not available 03/29/2024 12:31:39 Plan of Treatment Reminders Order Date Submit Date Provider Last Modified By Organization Details Last Modified Time Details Appointments RETURN VISIT in Person 2023 09:15A M Not available Not available Not available Lab CMP, serum or plasma 2023 024 [email or web address] [facility] ([facility]), [address] [place] [address] [place], [address], 03/29/2024 12:05:55 Referral None recorded. Procedures None recorded. Surgeries None recorded. Imaging None recorded. Medication Orders loratadin e 10 mg tablet 2023 024 [facility], [address] [place], [address], 03/29/2024 11:49:30 Patient TargetsNo targets recorded. Patient Instructions Encounter Date Encounter Id Patient Instructions Last Modified By Organization Details Last Modified Time 03/29/2024 [id number] Dear Barbi, I was so glad to see you today. Here's the plan: For sinus congestion: Recommending loratadine 10 mg per day. Continued saline nasal rinses (daily) NAC 900 mg twice daily In addition to acupuncture and PT, let's try out minnie chi exercises: 5-minute minnie chi: https://www.[employer].com/watch?v=Q6 aZ-VQWWFM&pp=ygUi lOGmQUCfuVJae5UdF jDqjA2wCFUtEBM0YT OcPzpkb8JeoC%3D%3 D Longer deannaomidPeter minnie chi: https://www.[employer].com/watch?v=hI OHGrYCEJ4&g=533k& pp=ygUidGFpIGNoaS Fan4NjKkPjtM6jNJP nAOB0ZVBwLtybo0Fq cA%3D%3D 15 minute version minnie chi: https://www.[employer].com/watch?v=ap IffYvzuS0&pp=ygUi pUIdLTXqhJZgi5LeR dIpgO9rBYWxNYT7EA EcDgycq6FclY%3D%3 D Not available 03/29/2024 12:01:46 Reason for Referral [...] 3 view No observ ation record ed. [facility] (Radiology) [address] [facility] [place], [address], 03/01/2024 07:28:37 Result Notes None recorded. Procedures Surgical History Date Name Laterality Status Provider Name and Address Organization Details Recorded Time 08/31/19 09 extracorporeal shockwave lithotripsy of calculus of kidney completed Reny Garg ND [address] [place] [address], [address], [phone], [facility] 01/22/2021 10:18:25 08/31/18 99 section completed Reny Garg ND [address] [place] [address], [address], [facility] 01/22/2021 10:16:37 Wrist arthroscopy/surger y completed Reny Garg [address], [address], [facility] 01/22/2021 10:19:35 Carpal tunnel surgery completed Reny Garg ND [address] [place] [address], [address], [facility] 01/22/2021 10:20:19 Imaging Results None recorded. Procedure Notes None recorded. Medical Equipment None Reported. Allergies Allergen ID Allergen Name Allergen Category Reaction Reaction Severity Criticality Documentation Date Start Date Code Code System Note Provider Name and Address Organization Details Recorded Time 301 Medicinal product containin g penicilli n and acting as antibacte rial agent (product) medicatio n hives moderate Not available 01/22/2021 03768 05 SNOMED Reny Garg [address], [address], [address], [facility] 10:04:10 Medications Name Sig Start Date Stop [...] THREE TIMES A DAY NEEDED FOR MUSCLE SPASM/CANDICE N active Not Available Not Available No t [...] by Organization Details LastModified Time Mother Osteoporosis [email or web address] Not avail able 01/22/2021 10:21:45 Mother Arthritis [email or web address] Not availabl e 01/22/2021 10:27:59 Mother Asthma [email or web address] Not available 0 01/22/2021 10:28:09 Mother Glaucoma [email or web address] Not available 02/28/2021 09:29:49 Mother Heart disease Not available 2020 10:29:17 Mother Cerebrovascu lar accident [email or web address] Not available 10:29:40 Father Alcoholism [email or web address] Not availab le 02/28/2021 09:29:49 Father Gastric ulcer ssuzette Not available 2020 09:29:49 Maternal Grandmother Diabetes mellitus [email or web address] Not available 2020 10:30:10 Maternal Grandmother Malignant [...] Code 6818 Reny Garg ND Main Office--[facility] [address] [facility] [address] [place] [address] 03/29/2024 11:26:16 03/29/2024 12:37:15 Seasonal allergic rhinitis [id number] J30.2 J32.8 Serum pota ssium level below reference range 387481137 R79.0 Pain in lumbar spine 267 934728 M54.51 M25.552 M79.605 Health Concerns Section Related Observation LastModified by Organization Detai ls LastModified Time None Recorded Concern Status LastModified by Organization Details LastModified Time None Recorded Payers Encounter Date Sequence Insurance Name Policy Number Policy Emerson Covered Member ID Emerson Member ID Guarantor Name 03/29/2024 1 [facility] (MEDICAID) Barbi Ivey [id number] Barbi Ivey Notes Date Note Type Note [...] therapy for hip pain on 04-12 at [facility], as no fractures or degenerative changes [...] higher dose for its mucolytic effect and vshr-vjk-sizfnpm Claritin for allergy relief. The patient notes [...] and back issues. Reny Garg, ND [address] [facility], [address] [facility], [place], [address], [place] [employer] [employer] 03/29/2024 12:36:49 OBGyn Episode No OBEpisode recorded.
--- OUTSIDE RECORDS SUMMARY | 2024-06-02 16:48 | XMS_ITS | Encounter Summary ---
Author Organization [facility] Address [address] [place] [address] Care Team Providers Care Nurse Midwife Name Role Phone Minh Penaloza MD Primary Care Provider [phone] Law Santiago MD Primary Care Provider [phone] Jim Wei MD Primary Care Provider Un available Encounter Details Date Type Department Care Team (Late st Contact Info) Description 10/16/2009 Historical Results Only [facility] Lab - Main [address] [address] Naga Bhatti MD Social History Tobacco Use [...] (10/16/2009) 10/16/2009 10/17/2009 10: 33 EST Narrative [facility] - 10/18/2009 16:18 EST ----- ------- Name: BARBI IVEY Stephani ?: [birth year] ?Age/Sex: 43/F ?Unit#: [id number] ? Loc: AGO ? Status: REG POV ?? Reg Date: 10/11/09 ? Pt.Phone Number: ? ----- ------- Specimen: [id number] ?STATUS: SOUT ?Spec Date:10/16/09 ? Physician Copies: ?Naga Bhatti MD ? Tissues: ? Cervical/Endo Pap ? CPT: 48214 ?? Units: ??1 ----- ------- ? CYTOLOGY [...] confirmed the above diagnosis. Test Performed by [facility], [address] [facility], [place] [address] Nurse Anesthetist: Azalea Tanner MD PHD ----- ------- Naga Bhatti MD PATHOLOGY ORDERABLES [facility] documented in this encounter Visit Diagnoses Not on filedocumented in this encounter Care Teams Nurse Midwife Relationship Specialty Start Date End Date Minh Penaloza MD [address] [place] [address] PCP - General 01/16/11 02/02/11 Law Santiago MD [address] [place] [address] PCP - General 02/03/11 08/10/11 Jim Wei MD PCP - General 08/11/11 02/20/20 documented as of this encounter
--- OUTSIDE RECORDS SUMMARY | 2024-06-02 16:48 | XMS_ITS | Encounter Summary ---
Author Organization [facility] Address [address] [place] [address] Care Team Providers Care Parole Agent Name Role Phone Jim Wei MD Primary Care Provider Un available Encounter Details Date Type Department Care Team ([facility] st Contact Info) Description 10/25/[address] [facility] [place] Radiology Results [address] [place] [address] Law Santiago MD [address] [facility] [address] [place], [place] [address] Social History Tobacco Use Types Packs/Day Years [...] CHEST PAIN WITH EKG CHANGES ? *[facility]* ? *[facility]* ? [address] ? [place] [address] ? Myocardial Perfusion Imaging - SPECT ? [...] Pain, Unspecified. ? History: ??SEEN OVERNIGHT AT [facility] ON 10/05/15 FOR NONEXERTIONAL SHARP ? [...] heart rate and blood ? pressure was 22237gt Hg/min. ? Stress ECG: ? GOOD EXERCISE [...] was interpreted by [facility]. ? Study status: Routine. ? [...] CC: ? Transcribed Date/Time: 10/26/2015 (1048) ? Sign Maintenance: LANI ? Printed Date/Time: 02/10/2019 (0833) ? PAGE 3 ? Signed Report ? Procedure Note Kian aFrah G - 07/06/2019 EXAM: NUCLEAR MEDICINE/NUCLEAR STRESS JUAN EX. D/ (1008) CLINICAL INFORMATION: ATYPICAL CHEST PAIN WITH EKG CHANGES *[facility]* *[facility]* [address] [place] [address] Myocardial Perfusion Imaging - SPECT Thomas protocol [...] Chest Pain, Unspecified. History: SEEN OVERNIGHT AT [facility] ON 10/05/15 FOR NONEXERTIONAL SHARP LEFT [...] peak heart rate and blood pressure was 78526kv Hg/min. Stress ECG: GOOD EXERCISE JOHANNA- 10 [...] procedure. This study was interpreted by [facility]. Study status: Routine. Consent: The risks, [...] FARAH M.D. CC: Transcribed Date/Time: 10/26/2015 (1048) Sign Maintenance: LANI Printed Date/Time: 02/10/2019 (0833) PAGE 3 Signed Report Law Santiago MD CARDIAC NM ORDERABLE S documented in this encounter Visit Diagnoses Not on filedocumented in this encounter Care Teams Parole Agent Relationship Specialty Start Date End Date Jim Wei MD PCP - General 08/11/11 02/20/20 documented as of this encounter
--- OUTSIDE RECORDS SUMMARY | 2024-06-02 16:48 | XMS_ITS | Encounter Summary ---
Author Organization [facility] Address [address] [place] [address] Care Team Providers Care Practice Managers Name Role Phone Unavailable Primary Care Provider Unavailabl e Encounter Details Date Type Department Care Team (Late st Contact Info) Description 08/22/2002 13:19 EST Hospital Encounter [facility] - Other [address] [place] [address] Carlos Goodson MD [address] [place] [address] Unknown, MD Tito Social History Tobacco Use [...] ? BARBI IVEY ? Accession #: ? [id number] ? : ? 1975 (Age: 26) ??F [...] confirmed the above diagnosis. Specimen(s) Received: ? [facility] [id number] (4) Clinical History: ? Gross Description: ? Four slides are received for review from [facility] labelled [id number]. ?? End of Report TSEVE THAKUR 08/22/2002 08/22/2002 13: 10 EST R Kian Goodson MD PATHOLOGY ORDERABLE S Performing Organization Address City/State/[facility] Co de Phone Number [facility] [address] [place] [address] documented in this encounter Visit Diagnoses Not on filedocumented in this encounter
--- OUTSIDE RECORDS SUMMARY | 2024-06-02 16:48 | XMS_ITS | Encounter Summary ---
Author Organization [facility] Address [address] [place] [address] Care Team Providers Care Phonograph Cartridge Assembler Name Role Phone Jim Wei MD Primary Care Provider Un available Encounter Details Date Type Department Care Team (Late st Contact Info) Description 09/19/2016 Historical Results Only [facility] Lab - Main [address] [address] Naga Bhatti MD Social History Tobacco Use [...] * T4 FREE (09/19/2016 11:21 EST) FREE [address] 0.99 0.89 - 1.76 ng/dL 09/19/2016 12:21 EST [facility] 09/19/2016 11:2 1 EST 09/19/2016 11:21 EST Narrative [facility] - 09/19/2016 12:21 EST Does PT Have a Latex Allergy? NO Naga Bhatti MD CHEMISTRY & BLOOD GA S ORDERABLES [facility] documented in this encounter Visit Diagnoses Not on filedocumented in this encounter Care Teams Phonograph Cartridge Assembler Relationship Specialty Start Date End Date Jim Wei MD PCP - General 08/11/11 02/20/20 documented as of this encounter
--- OUTSIDE RECORDS SUMMARY | 2024-06-02 16:48 | XMS_ITS | Encounter Summary ---
Author Organization [facility] Address [address] [place] [address] Care Team Providers Care Casework Specialist Name Role Phone Minh Penaloza MD Primary Care Provider [phone] Law Santiago MD Primary Care Provider [phone] Jim Wei MD Primary Care Provider Un available Encounter Details Date Type Department Care Team (Late st Contact Info) Description 10/14/2010 Historical Results Only [facility] - Main [address] [address] Naga Bhatti MD Social History Tobacco Use [...] (10/14/2010) 10/14/2010 10/14/2010 17: 36 EST Narrative [facility] - 10/17/2010 13:46 EST ----- ------- Name: BARBI IVEY Stephani ?: [birth year] ?Age/Sex: 43/F ?Unit#: [id number] ? Loc: AGO ? Status: REG POV ?? Reg Date: 10/14/10 ? Pt.Phone Number: ? ----- ------- Specimen: [id number] ?STATUS: SOUT ?Spec Date:10/14/10 ? Physician Copies: ?Naga Bhatti MD ? Tissues: ? Cervical/Endo Pap ?Jim Wei CPT: 65778 ?? Units: ??1 ----- ------- ? CYTOLOGY [...] confirmed the above diagnosis. Test Performed by [facility], [address] [place] [address] Elevator Repair Mechanic: Azalea Tanner MD PHD ----- ------- Naga Bhatti MD PATHOLOGY ORDERABLES [facility] documented in this encounter Visit Diagnoses Not on filedocumented in this encounter Care Teams Casework Specialist Relationship Specialty Start Date End Date Minh Penaloza MD [address] [place] [address] PCP - General 01/16/11 02/02/11 Law Santiago MD [address] [place] [address] PCP - General 02/03/11 08/10/11 Jim Wei MD PCP - General 08/11/11 02/20/20 documented as of this encounter
--- OUTSIDE RECORDS SUMMARY | 2024-06-02 16:48 | XMS_ITS | Encounter Summary ---
Author Organization [facility] Address [address] [place] [address] Care Team Providers Care Level Vial Curvature Gauger Name Role Phone Jim Wei MD Primary Care Provider Un available Encounter Details Date Type Department Care Team (Late st Contact Info) Description 03/21/2016 Historical Results Only [facility] Radiology Results [address] [place], [place] [address] Naga Bhatti MD Social History Tobacco Use [...] CC: ? Transcribed Date/Time: 03/24/2016 (1047) ? Security Program Manager: LANI ? Printed Date/Time: 02/10/2019 (2036) [...] Thao MD CC: Transcribed Date/Time: 03/24/2016 (1047) Security Program Manager: LANI Printed Date/Time: 02/10/2019 (8778) PAGE 1 Signed Report Naga Bhatti MD IMG MAMMOGRAPHY [facility] documented in this encounter Visit Diagnoses Not on filedocumented in this encounter Care Teams Level Vial Curvature Gauger Relationship Specialty Start Date End Date Jim Wei MD PCP - General 08/11/11 02/20/20 documented as of this encounter
--- OUTSIDE RECORDS SUMMARY | 2024-06-02 16:48 | XMS_ITS | Data Portability ---
Author Organization [place] - [facility], Historical Import Interface Address [address] [place] [address] Assessment Encounter Date Assessment Date Assessment LastModified by Organization Details LastModified Time 01/27/2023 01/27/2023 [email or web address] ReviewedDOS: 01.27.2023 Tx: MEGAN, FMX, Caries Risk Assessment?? NV1: EXT #9 & #19 w/ DCP 1 hr type 2?? NV3: #6-MF & #8-MIF w/ DCP 1 hr type 1?? NV2: #14-MO &?? EXT #3, 4, 13 root tips?? w/ DCP 1 hr type 1?? NV4: Impression for partial denture w/ DCP 30 mins type 2?? NHV: SGI?? Completed Procedures D0210 - Intraoral - comprehensive series of radiographic images D0150 - Comprehensive oral evaluation - new or established patient D0603 - Caries risk assessment and documentation, with a finding of high risk Pt presents to clinic for MEGAN w/CC: ? I have a few broken teeth and this filling fell out here in the front? reports mild sensitivity. ?? HPI: Last seen Oct?? MdHx Update:No changes ? Habits:?? - Diet: good/fair ? drinks mainly water, coffee and tea with no sugar, only cream. Will have a diet coke a few times a few?? - Homecare: fair/poor-brushe s PM, sometimes in the AM. Rarely flossing. Stressed brushing 2x/day, and daily flossing. ? OCS:?? - IOE: WNL?? - EOE: WNL? Radiographic Exam: FMX?? - Reviewed radiographs ?? - Radiographic calculus: None - ??Root tips and gross caries generally. PARL on teeth #9 and #19 ?? Occlusion:?? - Class:II? OB:75%? OJ:7mm ?? - TMJ:WNL ?? - Max opening: WNL ? Hard Tissue Exam?? See chart for existing ? #3-root tips-EXT?? #4-root tips- EXT ?? #6-MF caries?? #8-MIF caries ?? #9-caries to pulp, abscess-RCT/CRN or EXT ?? #13-root tip-EXT?? #14-MO caries?? #19-nonrestorabl e-EXT?? #30-B caries?? #32-root tips-EXT ?? - Caries risk: lowhigh? Periodontal Exam:?? - Color: Gering?? - Stippled?? - Papilla: pointed?? - Plaque: generalized moderate ?? - Calculus: generalized moderate ?? - Diagonsis: Pending STEMMER MACHINE, plaque induced gingivitis, Generalized/Loca lized acute/chronic mild/moderate/se jessica periodontitis? Discussion:?? - Reviewed findings, tx options, risks, benefits, and potential consequences of no tx which pt understood. Addressed all pt's questions and concerns. Obtained informed consent for listed tx.?? - Went over prognosis for #9, pt choses to EXT and do partial denture for maxillary.?? - Provided SFS upon leaving.?? - Reviewed partial denture process. Discussed that ideally will extract max teeth and do restorations before making partial. Pt weary about going without front tooth for some time but demonstrates understanding and agrees to that process - Encouraged good diet and habits and changes to be made to lower caries risk ?? Tx Plan:?? 1. Extract teeth #9 and #19 2. #6 and #8 fillings 3. #14 filling and max root tips 4. Max upper partial ?? Assisted by: Saranya Chery DDS *Any part of this clinical note that is out of place or in disorder is due to an ongoing autosave error that has not been fixed by [place]*?? , 2:36 PM. I attest that the treatment rendered today is completed and treatment met the standard of care. , 9:45 AM. [email or web address] Not available 02/03/2023 14:11:19 02/13/2023 02/13/2023 DOS: ??02.13.2023 Tx: Simple Ext #9 & #19?? NV2: #6-MF & #8-MIF w/ DCP 1 hr type 1?? NV1: #14-MO &?? EXT #3, 4, 13 root tips?? w/ DCP 1 hr type 1?? NV3: Impression for partial denture w/ DCP 30 mins type 2?? NHV: SGI? Completed Procedures D7140 - Extraction, erupted tooth or exposed root (elevation and/or forceps removal) Teeth: 9 19 CC: present for planned extraction appt. #9 broke 5 days ago, has had sensitivity/thro bbing.?? Hx:??No changes?? BP:??128/79 P:??66 ? 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 Recommended tx: EXT #9 & #19? Discussion:?? - Reviewed the findings of today's limited exam. Explained the diagnosis and recommended tx.?? - Risks, benefits and alternatives to tx were discussed.?? - All of the pt's questions were answered. ? Informed pt of findings, tx options, risks benefits and potential consequences on no tx which pt understood. Addressed all pt? s questions and concerns. Informed consent obtained for ? Consent forms reviewed and signed?? Radiograph available ?? Anesthesia:?? 20% Benzocaine topical anesthesia?? 2 carp 4% Articaine w/1:200k epi via local infiltration ? Procedure: ?? Elevate and deliver with elevators and forceps without complications ?? Socket curetted?? Copious irrigation with saline?? No sinus communication detected?? No nerve visualized ?? All adjacent teeth intact ?? B/L pressure applied to socket?? No sutures necessary ?? Gauze placed ?? Good hemostasis achieved.? P/O instructions given written and verbally, which pt understood ?? Pain Management: 600mg ibuprofen, 500mg acetaminophen q6h PRN pain ?? Pt tolerated procedure well, Pt was discharged in stable condition; alert, oriented and ambulatory? Felt Coverer: Saranya Chery DDS , 11:32 AM. I attest that the treatment rendered today is completed and treatment met the standard of care. , 9:18 AM. [email or web address] Not available 02/25/2023 15:42:57 03/25/2023 03/25/2023 DOS: ??03.25.2023 Tx: Simple Ext #3, 4, 13 NV2: #6-MF & #8-MIF w/ DCP 1 hr type 1?? NV1: #14-MO w/ DCP 1 hr type 1?? NV3: Impression for partial denture w/ DCP 30 mins type 2?? NHV: SGI? Completed Procedures D7140 - Extraction, erupted tooth or exposed root (elevation and/or forceps removal) Teeth: 3 4 13 CC: present for planned extraction appt, stated some soreness in #9 ext area.?? Hx:??No changes?? BP:??128/89 P:??77 ? Diagnosis:??xenia ined root tips #3, 4, 13?? Recommended tx: EXT #3, 4, 13? Discussion:?? - Reviewed the findings of today's limited exam. Explained the diagnosis and recommended tx.?? - Risks, benefits and alternatives to tx were discussed.?? - All of the pt's questions were answered. ?? #9 ext site healing within normal limits? Informed pt of findings, tx options, risks benefits and potential consequences on no tx which pt understood. Addressed all pt? s questions and concerns. Informed consent obtained for ? Consent forms reviewed and signed?? Radiograph available ?? Anesthesia:?? 20% Benzocaine topical anesthesia?? 2 carp 4% Articaine w/1:200k epi via local infiltration ? Procedure: ?? Elevate and deliver with elevators and forceps without complications ?? Removed with root picks/elevators with no complications.?? Socket curetted?? Copious irrigation with saline?? No sinus communication detected?? All adjacent teeth intact ?? B/L pressure applied to socket?? No sutures necessary ?? Gauze placed ?? Good hemostasis achieved.?? Removed bone spur in #16 area * ?? P/O instructions given written and verbally, which pt understood ?? Pain Management: 600mg ibuprofen, 500mg acetaminophen q6h PRN pain ?? Pt tolerated procedure well, Pt was discharged in stable condition; alert, oriented and ambulatory? Felt Coverer: Saranya Chery DDS , 1:25 PM. I attest that the treatment rendered today is completed and treatment met the standard of care. , 2:51 PM. [email or web address] Not available 03/30/2023 15:07:15 04/30/2023 04/30/2023 DOS: 04/30/2023 NV: #14-MO and ext #12 1 hr W/ DCP type 1 NHV: SGI Tx: Comp flg ??#8-MIFL #11-ML CC: No complaints related to #8 and #11, although pt is feeling discomfort in the socket of #9 and reports pimples on maxillary anterior gingiva Pt presents for planned islam HHx review: No sig changes? Discussion:?? - Risks and benefits of filling discussed?? - Reviewed risk of post op sensitivity and possibility of tooth needing further treatment in the future?? - All questions answered and pt demonstrates understanding? Dx: #8 smooth surface caries to dentin, #11 ??smooth surface caries to dentin ?? Anesthesia:?? 20% Benzocaine topical anesthesia ?? 1 carp 4% Articaine w/1:200 epi via infiltration ?? Prep:?? - Caries removed, extended less than fci into dentin?? - Outline form achieved? Procedure: ?? - Isolation: cotton rolls, suction - Matrix: Clear?? - 40% Phosphoric acid etch placed for 20 sec w/brush and rinsed for 20 sec?? - Scotch[place] scrubbed into tooth, dried, and cured?? -Filtek Shade:A3.5 , placed per manufacture instruction? Finish:?? - Baptism smoothed and contoured and polished?? - Checked contact, margins and occl?? - Pt notes that bite feels normal and that there is nothing rough or sharp to their tongue?? - Pt. tolerated procedure well, satisfied with comfort ?? - Pt. understands POI? Personal Note: Has 6 year old son and 21 year old son ?? Assisted by: ??Annalisa Chery DDS Completed Procedures D2332 - Resin-based composite - three surfaces, anterior Teeth: 11 (MLD) D2335 - Resin-based composite - four or more surfaces or involving incisal angle (anterior) Teeth: 8 (MIFL) , 9:49 AM. I attest that the treatment rendered today is completed and treatment met the standard of care. , 4:28 PM. Amendment: This clinical note was amended by Rafa Chery DDS on 06/16/2023, 7:45 AM. [email or web address] Not available 06/16/2023 09:07:50 05/19/2023 05/19/2023 Date??05/19/2023 ?? Tx: Comp Flg ??#14-MO and Simple Ext #12 ?? NV:??Ops #30-B and ext #32 1hr w/DCP?? NHV:??SGI ?? CC:??I have had a pimple above the tooth that needs to be removed. HHx review: No sig changes? Discussion:?? - Risks and benefits of filling discussed?? - Reviewed risk of post op sensitivity and possibility of tooth needing further treatment in the future?? - All questions answered and pt demonstrates understanding?? - Pt notes pimple around where tooth #9 was taken out, no fistula noted today but noted that there is an uneven ridge of bone that the patient may be feeling as a bump. Discussed with patient and otherwise normal healing ?? Dx: #14 smooth surface caries to dentin, #12- Caries to pulp ?? Anesthesia:?? 20% Benzocaine topical anesthesia ?? 2 carp 4% Articaine w/1:200 epi via infiltration ?? Prep:?? - Caries removed, extended fci into dentin?? - Outline form achieved? Procedure: ?? - Isolation: cotton rolls, suction, Bite block, dry angle?? - Matrix:Tofflemir e - 40% Phosphoric acid etch placed for 20 sec w/brush and rinsed for 20 sec?? - Scotchbond [place] scrubbed into tooth, dried, and cured?? - Beautiful Flow A2, ?? Filtek Shade:A2 , placed per manufacture instruction? Finish:?? - Baptism smoothed and contoured and polished?? - Checked contact, margins and occl?? - Pt notes that bite feels normal and that there is nothing rough or sharp to their tongue?? - Pt. tolerated procedure well, satisfied with comfort ?? - Pt. understands POI? Consent forms reviewed and signed?? Radiograph available ? Procedure: ?? Elevate and deliver with elevators and forceps without complications ?? Socket curetted?? Copious irrigation with saline?? No sinus communication detected?? All adjacent teeth intact ?? B/L pressure applied to socket?? No sutures necessary ?? Gauze placed ?? Good hemostasis achieved.? P/O instructions given written and verbally, which pt understood ?? Pain Management: 600mg ibuprofen, 500mg acetaminophen q6h PRN pain ?? Assisted by: ? Camille Chery DDS Completed Procedures D2392 - Resin-based composite - two surfaces, posterior Teeth: 14 (MO) D7140 - Extraction, erupted tooth or exposed root (elevation and/or forceps removal) Teeth: 12 , 1:29 PM. I attest that the treatment rendered today is completed and treatment met the standard of care. , 2:12 PM. [email or web address] Not available 07/06/2023 14:13:07 Plan of Treatment Reminders Order Date Submit Date Provider Last Modified By Organization Details Last Modified Time Details Appointments None record ed. Lab None record ed. Referral None record ed. Procedures None record ed. Surgeries None record ed. Imaging None record ed. Medication Orders None record ed. Patient TargetsNo targets recorded. Patient InstructionsNo instructions recorded. Reason for Referral None Reported. Medical Equipment None Reported. Medications Name Sig Start Date Stop Date Status Note LastModified by Organization Details LastModified Time cyclobenzaprine 10 mg tablet TAKE ONE TABLET BY MOUTH THREE TIMES A DAY NEEDED active Not Available Not Available No t Available buspirone 5 mg tablet TAKE ONE TABLET BY MOUTH TWICE A DAY active Not Available Not Available No t Available tizanidine 4 mg tablet TAKE 1 TABLET BY MOUTH 3 TIMES A DAY NEEDED FOR MUSLCE SPASMS active Not Available Not Available No t Available amiloride 5 mg tablet TAKE ONE TABLET BY MOUTH EVERY DAY active Not Available Not Available No t Available magnesium oxide 400 mg (241.3 mg magnesium) tablet TAKE 1 TABLET BY MOUTH TWICE DAILY active Not Available Not Available No t Available potassium citrate ER 10 mEq (1,080 mg) tablet,extended release TAKE ONE TABLET BY MOUTH TWICE A DAY active Not Available Not Available No t Available bisacodyl 5 mg tablet,delayed release TAKE ONE TABLET BY MOUTH EVERY DAY active Not Available Not Available No t Available hydrochlorothia zide 25 mg tablet TAKE ONE TABLET BY MOUTH TWICE A DAY active Not Available Not Available No t Available polyethylene glycol 3350 17 gram/dose oral powder MIX 17 GRAMS IN LIQUID AND TAKE BY MOUTH ONCE DAILY active Not Available Not Available No t Available duloxetine 60 mg capsule,delayed release TAKE ONE CAPSULE BY MOUTH EVERY DAY active Not Available Not Available No t Available pregabalin 150 mg capsule TAKE ONE CAPSULE BY MOUTH TWICE A DAY active Not Available Not Available No t Available potassium chloride ER 20 mEq tablet,extended release TAKE TWO TABLETS BY MOUTH EVERY DAY active Not Available Not Available No t Available Vitals None Recorded Social History None recorded. Functional Status None recorded. Mental Status None recorded. Family History Nothing Reported. Medical History No medical history recorded. Gynecological HistoryNo gynecological history recorded. Obstetrics History GPAL:G 0 P 0 0 0 0 Past Encounters Encounter ID Performer Location Encounter Start Date Encounter Closed Date Diagnosis/Indication Diagnosis SNOMED-CT Code Diagnosis ICD10 Code [id number] Dental [address] [place] [address] 01/27/2023 11:20:55 02/03/2023 14:11:20 [id number] [facility] [address] [facility] [place] [address] 02/13/2023 10:35:16 02/25/2023 15:42:57 [id number] Dental [address] [place] [address] 03/25/2023 10:24:29 03/30/2023 15:07:16 [id number] Dental [address] [place] [address] 04/30/2023 08:30:03 06/16/2023 09:07:55 [id number] Dental [address] [place] [address] 05/19/2023 12:11:16 07/06/2023 14:13:09 Health Concerns Section Related Observation LastModified by Organization Detai ls LastModified Time None Recorded Concern Status LastModified by Organization Details LastModified Time None Recorded Advance Directives Directive None Recorded Payers Encounter Date Sequence Insurance Name Policy Number Policy Emerson Covered Member ID Emerson Member ID Guarantor Name 01/27/2023 *SELF PAY* Barbi Anair Barbi Anair 01/27/2023 [employer] (MOVED TO HOLD) Barbi Anair [id number] Barbi Anair 02/13/2023 *SELF PAY* Barbi Anair Barbi Anair 02/13/2023 [employer] (MOVED TO HOLD) Barbi Anair [id number] Barbi Anair 03/25/2023 *SELF PAY* Barbi Anair Barbi Anair 03/25/2023 [employer] (MOVED TO HOLD) Barbi Anair [id number] Barbi Anair 04/30/2023 *SELF PAY* Barbi Anair Barbi Anair 04/30/2023 [employer] (MOVED TO HOLD) Barbi Anair [id number] Barbi Anair 05/19/2023 *SELF PAY* Barbi Anair Barbi Anair 05/19/2023 [employer] (MOVED TO HOLD) Barbi Anair [id number] Barbi Anair OBGyn Episode No OBEpisode recorded.
--- OUTSIDE RECORDS SUMMARY | 2024-06-02 16:48 | XMS_ITS | Encounter Summary ---
Author Organization [facility] Address [address] [place] [address] Care Team Providers Care Sock Boarder Name Role Phone Jim Wei MD Primary Care Provider Un available Encounter Details Date Type Department Care Team (Latest Contact Info) Description 02/27/2017 11:07 EDT - 02/27/2017 23:59 EDT Hospital Encounter [address] [id number] Unknown, Provider, Discharge Disposition: Home or Self [...] Code Departure Means Destination Home or Self Snf documented in this encounter Plan of Treatment Not on file documented as of this encounter Visit Diagnoses Not on filedocumented in this encounter Care Teams Sock Boarder Relationship Specialty Start Date End Date Jim Wei MD PCP - General 08/11/11 02/20/20 documented as of this encounter
--- OUTSIDE RECORDS SUMMARY | 2024-06-02 16:48 | XMS_ITS | Encounter Summary ---
Author Organization [facility] Address [address] [place] [address] Care Team Providers Care Scientific Programmer Analyst Name Role Phone Jim Wei MD Primary Care Provider Un available Encounter Details Date Type Department Care Team ([facility] st Contact Info) Description 02/27/2017 Historical Results Only [facility] Radiology Results [address] [place] [address] Ar[place], [place] [address] [place] [phone] Social History Tobacco Use Types Packs/Day Years [...] CC: ? Transcribed Date/Time: 02/27/2017 (0824) ? Windows 7 Deployment Lead: ? Printed Date/Time: 02/14/2019 (0842) ? PAGE [...] Pandey MD CC: Transcribed Date/Time: 02/27/2017 (0824) Windows [employer] Deployment Lead: Printed Date/Time: 02/14/2019 (0884) PAGE 1 Signed Report Arlen Shelby [place] IMG DIAGNOSTIC I MAGING ORDERABLES documented in this encounter Visit Diagnoses Not on filedocumented in this encounter Care Teams Scientific Programmer Analyst Relationship Specialty Start Date End Date Jim Wei MD PCP - General 08/11/11 02/20/20 documented as of this encounter
--- OUTSIDE RECORDS SUMMARY | 2024-06-02 16:48 | XMS_ITS | Encounter Summary ---
Author Organization [facility] Address [address] [place] [address] Care Team Providers Care Concrete Mason Name Role Phone SyAlex mascorrohanie FIORELLA Primary Care Provider + Encounter Details Date Type Department Care Team (Late st Contact Info) Description 08/28/2020 17:00 EST Phlebotomy Only [facility] 2 Phlebotomy [address] [place], [place] [id number] Linux Admin, Acc Phlebotomy Positive NOLAN (antinuclear antibody); Polyarthralgia [...] CCP ANTIBODIES Routine 08/28/2020 16:57 EST Polyarthralgia HEARING SCREEN COORDINATOR ANTIBODY, IGG Routine 08/28/2020 16: 57 EST Positive NOLAN (antinuclear antibody) DOUBLE STRANDED DNA ANTIBODY, IGG Routine 08/28/2020 16:57 EST Positive NOLAN (antinuclear antibody) RHEUMATOID FACTOR Routine 08/28/2020 16: 57 EST Polyarthralgia THYROID ANTIBODIES Routine 08/28/2020 16 :57 EST Positive NOLAN (antinuclear antibody) documented in this encounter Results * THYROID ANTIBODIES (08/28/2020 16:57 EST) Anti-Thyroglobulin 26 <=60 U/mL 2019 19:11 EST [facility] Thyroperoxidase Ab <28 <=60 U/mL 2019 19:11 EST [facility] Blood VENOUS BLOOD / Unknown Venipuncture / Unknown 08/28/2020 16:57 EST 08/28/2020 17:49 EST Audi Smart MD CHEMISTRY & BLOOD GA S ORDERABLES [facility] [address] [place] [address] * CCP ANTIBODIES (08/28/2020 16:57 EST) CCP Antibodies <2.5 <5.0 U/mL 08/29/2020 8:24 EST [facility] Blood VENOUS BLOOD / Unknown Venipuncture / Unknown 08/28/2020 16:57 EST 08/28/2020 17:49 EST Audi Smart MD IMMUNOLOGY AND SEROL OGY ORDERABLES Performing Organization Address City/[facility] Co de Phone Number [facility] [address] [place] [address] * RHEUMATOID FACTOR (08/28/2020 16:57 EST) Rheumatoid Factor <8.6 <12.0 IU/mL 08/28/2020 18:26 EST [facility] Blood VENOUS BLOOD / Unknown Venipuncture / Unknown 08/28/2020 16:57 EST 08/28/2020 17:49 EST Audi Smart MD CHEMISTRY & BLOOD GA S ORDERABLES Performing Organization Address [facility] de Phone Number [facility] [address] [place] [address] * SSB ANTIBODIES BY LEBRON (08/28/2020 16:57 EST) SSB Antibody 3.2 <20.0 Units 08/30/2020 13:42 EST [facility] Comment: ? Negative: <20.0 Units ? Weak Positive: 20.0 - 39.9 Units ? Moderate Positive: 40.0 - 80.0 Units ? Strong Positive: >80.0 Units Results were obtained with the [employer] QUANTA Lite SS-B LEBRON. ??SS-B values obtained with different manufacturers' assay methods may not be used interchangeably. ??The magnitude of the reported IgG levels cannot be correlated to an endpoint titer. Blood VENOUS BLOOD / Unknown Venipuncture / Unknown 08/28/2020 16:57 EST 08/28/2020 17:49 EST Audi Smart MD IMMUNOLOGY AND SEROL OGJesusita ORDERABLES Performing Organization Address [facility] de Phone Number [facility] [address] [place] [address] * SSA ANTIBODIES BY LEBRON (08/28/2020 16:57 EST) SSA Antibody 1.9 <20.0 Units 08/30/2020 13:40 EST [facility] Comment: ? Negative: <20.0 Units ? Weak Positive: 20.0 - 39.9 Units ? Moderate Positive: 40.0 - 80.0 Units ? Strong Positive: >80.0 Units Results were obtained with the [employer] QUANTA Lite SS-A LEBRON. ??SS-A values obtained with different manufacturers' assay methods may not be used interchangeably. ??The magnitude of the reported IgG levels cannot be correlated to an endpoint titer. Blood VENOUS BLOOD / Unknown Venipuncture / Unknown 08/28/2020 16:57 EST 08/28/2020 17:49 EST Audi Smart MD IMMUNOLOGY AND SEROL JEAN ORDERABLES Performing Organization Address [facility] de Phone Number [facility] [address] [place] [address] * HEARING SCREEN COORDINATOR ANTIBODIES BY LEBRON (08/28/2020 16:57 EST) HEARING SCREEN COORDINATOR Antibody 2.2 <20.0 Units 08/30/2020 13:45 EST [facility] Comment: ? Negative: <20.0 Units ? Weak Positive: 20.0 - 39.9 Units ? Moderate Positive: 40.0 - 80.0 Units ? Strong Positive: >80.0 Units Results were obtained with the [employer] Quanta Lite HEARING SCREEN COORDINATOR LEBRON. HEARING SCREEN COORDINATOR values obtained with different scraper operator's assay methods may not be used interchangeaby. ??The magnitude of the reported IgG levels cannot be be correlated to an endpoint titer. A positive result in the Quanta Lite HEARING SCREEN COORDINATOR LEBRON indicates the presence of antibodies reactive with the HEARING SCREEN COORDINATOR/Sm complex but cannot distinguish between anti-Sm and anti-HEARING SCREEN COORDINATOR activity. Blood VENOUS BLOOD / Unknown Venipuncture / Unknown 08/28/2020 16:57 EST 08/28/2020 17:49 EST Audi Smart MD IMMUNOLOGY AND SEROL JEAN ORDERABLES Performing Organization Address [facility] de Phone Number [facility] [address] [place] [address] * SM (GUTIERREZ) ANTIBODY (08/28/2020 16:57 EST) SM (Gutierrez) Antibody 2.2 <20.0 Units 08/30/2020 13:44 EST [facility] Comment: ? Negative: <20.0 Units ? Weak Positive: 20.0 - 39.9 Units ? Moderate Positive: 40.0 - 80.0 Units ? Strong Positive: >80.0 Units Results were obtained with the [employer] QUANTA Lite Sm LEBRON. ??Sm values obtained with different manufacturers' assay methods may not be used interchangeably. ??The magnitude of the reported IgG levels cannot be correlated to an endpoint titer. Blood VENOUS BLOOD / Unknown Venipuncture / Unknown 08/28/2020 16:57 EST 08/28/2020 17:49 EST Audi Smart MD IMMUNOLOGY AND SEROL OGJesusita ORDERABLES Performing Organization Address [facility] de Phone Number [facility] [address] [place] [address] * ANTI DNA (DOUBLE STRANDED) (08/28/2020 16:57 EST) Anti-DNA (Double Stranded) <12.3 <30.0 IU/mL 08/30/2020 12:00 EST [facility] Comment: ? Negative: ??<30.0 IU/mL ? Borderline Positive: ??30.0 - 75.0 IU/mL ? Positive: ??>75.0 IU/mL Results were obtained with the [employer] Lite dsDNA SC LEBRON assay on the [employer] DSX. Blood VENOUS BLOOD / Unknown Venipuncture / Unknown 08/28/2020 16:57 EST 08/28/2020 17:49 EST Audi Smart MD IMMUNOLOGY AND ARLENE PENA ORDERABLES Performing Organization Address City/State/[facility] Co de Phone Number [facility] [address] [place] [address] documented in this encounter Visit Diagnoses Diagnosis Positive NOLAN (antinuclear antibody) Other and unspecified nonspecific immunological findings Polyarthralgia Pain in joint, multiple sites documented in this encounter Care Teams Concrete Mason Relationship Specialty Start Date End Date Arlen Ryan ND [address] [place] [phone] PCP - General 02/21/20 08/04/21 documented as of this encounter
--- OUTSIDE RECORDS SUMMARY | 2024-06-02 16:48 | XMS_ITS | Encounter Summary ---
Author Organization [facility] Address [address] [place] [address] Care Team Providers Care Extension Work Director Name Role Phone Arlen Ryan ND Primary Care Provider + Angelica Murphy Primary Care Provider Encounter Details Date Type Department Care Team (Late st Contact Info) Description 02/21/2020 Results Only Imaging [facility] Rad[facility] Results [address] [place], [place] [address] Arlen Ryan ND [address] [place] [address] Social History Tobacco Use Types [...] MD ? CC: ? Transcribed Date/Time: 02/21/2020 (9890) ? Vegetable Packer: ? Printed Date/Time: 02/21/2020 (5889) ? PAGE 1 ? Signed Report ? [...] Garg MD CC: Transcribed Date/Time: 02/21/2020 (1049) Vegetable Packer: Printed Date/Time: 02/21/2020 (1047) PAGE 1 Signed Report Arlen Ryan ND IMG DIAGNOSTIC I MAGING ORDERABLES documented in this encounter Visit Diagnoses Not on filedocumented in this encounter Care Teams Extension Work Director Relationship Specialty Start Date End Date Arlen yRan ND [address] [place] [phone] PCP - General 02/21/20 08/04/21 Angelica Murphy FNP [address] [place] [address] [place] [address] PCP - General 08/05/21 documented as of this encounter
--- OUTSIDE RECORDS SUMMARY | 2024-06-02 16:48 | XMS_ITS | Encounter Summary ---
Author Organization [facility] Address [address] [place] [address] Care Team Providers Care Molded Goods Spot Picker Name Role Phone Unavailable Primary Care Provider Unavailabl e Encounter Details Date Type Department Care Team (Late st Contact Info) Description 07/11/2002 18:49 EST Hospital Encounter [facility] [address] [place], [place] [phone] Mary Garg MD [address] [facility], [address] [place] [address] Discharge Disposition: Home or Self [...] BLOOD GA S ORDERABLES Performing Organization Address [facility] Co de Phone Number [facility] [address] [place] [address] * (ABNORMAL) ELECTROLYTES (07/11/2002 20:04 EST) Sodium 138 136 - 145 mEq/L [facility] Potassium 3.5 3.5 - 5.0 mEq/L [facility] Chloride 110 96 - 110 mEq/L [facility] CO2 23(L) 24 - 30 mEq/L [facility] 07/11/2002 20:0 4 EST 07/11/2002 20:04 EST Mary Garg MD CHEMISTRY & BLOOD GA S ORDERABLES Performing Organization Address City/[facility] Co de Phone Number [facility] [address] [place] [address] * (ABNORMAL) FIBRINOGEN (07/11/2002 20:04 EST) Fibrinogen 606(H) 180 - 433 mg/dl [facility] 07/11/2002 20:0 4 EST 07/11/2002 20:04 EST Mary Garg MD HEMATOLOGY & PF4 ORD ERABLES Performing Organization Address City/[facility]/ZIP Co de Phone Number [facility] [address] [place] [address] * (ABNORMAL) CREATININE (07/11/2002 20:04 EST) Creatinine 0.6(L) 0.7 - 1.5 mg/dl [facility] 07/11/2002 20:0 4 EST 07/11/2002 20:04 EST Mary Garg MD HISTORICAL LAB FOR S Q LOAD Performing Organization Address [facility] de Phone Number [facility] [address] [place] [address] * (ABNORMAL) HEMAGRAM & DIFF (07/11/2002 20:04 [...] Lymphs 1.18 1.09 - 3.30 K/cmm [facility] ABS Monocytes 0.74 0.1 - 0.8 K/cmm [facility] ABS Eosinophils 0.18 0.03 - 0.61 K/cmm [facility] ABS Basophils 0.00(L) 0.01 - 0.11 K/cmm [facility] Type of Diff: Automated [facility] 07/11/2002 20:0 4 EST 07/11/2002 20:04 EST Mary Garg MD HISTORICAL LAB FOR S Q LOAD Performing Organization Address [facility] de Phone Number [facility] [address] [place] [address] * (ABNORMAL) BUN (07/11/2002 20:04 EST) BUN 3(L) 10 - 26 mg/dl [facility] 07/11/2002 20:0 4 EST 07/11/2002 20:04 EST Mary Garg MD CHEMISTRY & BLOOD GA S ORDERABLES Performing Organization Address [facility] de Phone Number [facility] [address] [place] [address] * AST (07/11/2002 20:04 EST) AST 21 8 - 50 U/L [facility] 07/11/2002 20:0 4 EST 07/11/2002 20:04 EST Mary Garg MD CHEMISTRY & BLOOD GA S ORDERABLES Performing Organization Address [facility] Co de Phone Number [facility] [address] [place] [address] * ALT (07/11/2002 20:04 EST) ALT 29 15 - 75 U/L [facility] 07/11/2002 20:0 4 EST 07/11/2002 20:04 EST Mary Garg MD CHEMISTRY & BLOOD GA S ORDERABLES Performing Organization Address [facility] de Phone Number [facility] [address] [place] [address] * URINE MICROSCOPIC (07/11/2002 19:58 EST) WBC, [...] MD URINALYSIS ORDERABLE S Performing Organization Address [facility] Co de Phone Number [facility] [address] [place] [address] * (ABNORMAL) URINALYSIS (07/11/2002 19:58 EST) Color, UA Yellow [facility] Clarity, UA Clear [facility] Glucose, UA Norm NORM [facility] Bilirubin, UA Neg NEG [facility] Ketones, UA Neg NEG [facility] Specific [place], Urine <1.005(L) 1.005 - 1.02 [facility] Blood, UA Mod(A) NEG [facility] pH, UA 7.0 5.0 - 9.0 [facility] Protein, UA Neg NEG [facility] Urobilinogen, UA Norm NORM mg/dL [facility] Nitrite, UA Neg NEG [facility] Leuk Esterase Neg NEG [facility] 07/11/2002 19:5 8 EST 07/11/2002 19:58 EST Mary Garg MD URINALYSIS ORDERABLE S Performing Organization Address City/State/[facility] Co de Phone Number [facility] [address] [place] [address] documented in this encounter Visit Diagnoses Not on filedocumented in this encounter
--- OUTSIDE RECORDS SUMMARY | 2024-06-02 16:48 | XMS_ITS | Encounter Summary ---
Author Organization [facility] Address [address] [place] [address] Care Team Providers Care Sewing Machine Operator Floorperson Name Role Phone Jim Wei MD Primary Care Provider Un available Encounter Details Date Type Department Care Team (Latest Contact Info) Description 02/27/2015 9:23 EDT - 02/27/2015 23:59 EDT Hospital Encounter [address] [address] Unknown, Provider, Discharge Disposition: Home or Self [...] Code Departure Means Destination Home or Self Retirement documented in this encounter Plan of Treatment Not on file documented as of this encounter Visit Diagnoses Not on filedocumented in this encounter Care Teams Sewing Machine Operator Floorperson Relationship Specialty Start Date End Date Jim Wei MD PCP - General 08/11/11 02/20/20 documented as of this encounter
--- OUTSIDE RECORDS SUMMARY | 2024-06-02 16:48 | XMS_ITS | Encounter Summary ---
Author Organization [facility] Address [address] [place] [address] Care Team Providers Care Aircraft Hydraulic Equipment Mechanic Name Role Phone SyAlex mascorrohanie FIORELLA Primary Care Provider + Angelica Murphy Primary Care Provider Encounter Details Date Type Department Care Team (Late st Contact Info) Description 06/20/2020 Lab Requisition [facility] [place] [facility] Medicine - [address] [phone] Outr Resulting Lab, Provider Social History Tobacco [...] NOLAN Interpretation Positive(A) Negative 06/21/2020 15:01 EDT [facility] Comment: For titers greater [...] Pattern 1 1:160 Speckled 06/21/2020 15:01 EDT [facility] Blood VENOUS BLOOD / Unknown 06/19/2020 16:00 EDT 06/20/2020 19:32 EDT Narrative [facility] - 06/21/2020 15:01 EDT Results were obtained with the [employer] NOVA Lite HEp-2 NOLAN Kit by indirect immunofluorescence. Provider Outr Resulting Lab IMMUNOLOGY A ND SEROLOGY ORDERABLES [facility] [address] [place] [address] documented in this encounter Visit Diagnoses Not on filedocumented in this encounter Care Teams Aircraft Hydraulic Equipment Mechanic Relationship Specialty Start Date End Date Arlen Ryan ND [address] [place] [phone] PCP - General 02/21/20 08/04/21 Angelica Murphy FNP [facility] [place] [address] PCP - General 08/05/21 documented as of this encounter
--- OUTSIDE RECORDS SUMMARY | 2024-06-02 16:48 | XMS_ITS | Encounter Summary ---
Author Organization [facility] Address [address] [place] [address] Care Team Providers Care Supply Manager Name Role Phone SyAlex mascorrohanie FIORELLA Primary [...] on filedocumented in this encounter Care Teams Supply Manager Relationship Specialty Start Date End Date Arlen Ryan ND [address] [place] [phone] PCP - General 02/21/20 08/04/21 documented as of this encounter
--- OUTSIDE RECORDS SUMMARY | 2024-06-02 16:48 | XMS_ITS | Encounter Summary ---
Author Organization [facility] Address [address] [place] [address] Care Team Providers Care Drafter Civil (Cad) Name Role Phone Law Santiago MD Primary Care Provider [phone] Encounter Details Date Type Department Care Team (Late st Contact Info) Description 07/21/2011 Results Only Imaging [facility] [phone] Jim Wei MD Social History Tobacco Use [...] on filedocumented in this encounter Care Teams Drafter Civil (Cad) Relationship Specialty Start Date End Date Law Santiago MD [address] [place] [address] PCP - General 02/03/11 08/10/11 documented as of this encounter
--- OUTSIDE RECORDS SUMMARY | 2024-06-02 16:48 | XMS_ITS | Encounter Summary ---
Author Organization [facility] Address [address] [place] [address] Care Team Providers Care Certified Nursing Assistant Instructor Name Role Phone Jim Wei MD Primary Care Provider Un available Encounter Details Date Type Department Care Team (Latest Contact Info) Description 10/25/2015 9:09 EST - 10/25/2015 23:59 EST Hospital Encounter [address] [address] Unknown, Provider, Discharge Disposition: Home or Self [...] on filedocumented in this encounter Care Teams Certified Nursing Assistant Instructor Relationship Specialty Start Date End Date Jim Wei MD PCP - General 08/11/11 02/20/20 documented as of this encounter
--- OUTSIDE RECORDS SUMMARY | 2024-06-02 16:48 | XMS_ITS | Encounter Summary ---
Author Organization [facility] Address [address] [place] [address] Care Team Providers Care Chief Executive Name Role Phone Jim Wei MD Primary Care Provider Un available Encounter Details Date Type Department Care Team (Latest Contact Info) Description 03/21/2016 9:26 EDT - 03/21/2016 23:59 EDT Hospital Encounter [address] [address] Unknown, Provider, Discharge Disposition: Home or Self [...] Code Departure Means Destination Home or Self [facility] documented in this encounter Plan of Treatment Not on file documented as of this encounter Visit Diagnoses Not on filedocumented in this encounter Care Teams Chief Executive Relationship Specialty Start Date End Date Jim Wei MD PCP - General 08/11/11 02/20/20 documented as of this encounter
--- OUTSIDE RECORDS SUMMARY | 2024-06-02 16:48 | XMS_ITS | Encounter Summary ---
Author Organization [facility] Address [address] [place] [address] Care Team Providers Care Family Educator Name Role Phone Jim Wei MD Primary Care Provider Un available Encounter Details Date Type Department Care Team (Late st Contact Info) Description 10/20/2018 Historical Results Only [facility] - [address] [phone] Naga Bhatti MD Social History Tobacco Use [...] Risk types, PCR NEG 10/25/2018 15:51 EST [facility] Comment: Negative for HPV types 16, 18, 31, 33, 35, 39, 45, 51, 52, 56, 58, 59, 66, 68. Method: Cervista HPV HR (High Risk) DNA test. 10/20/2018 9:33 EST 10/21/2018 9:33 EST Naga Bhatti MD MICROBIOLOGY - GENER AL ORDERABLES [facility] * PAP TEST (10/20/2018) 10/20/2018 10/21/2018 9:3 3 EST Narrative [facility] - 10/26/2018 13:56 EST ----- ------- Name: BARBI IVEY ?: [birth year] ?Age/Sex: 43/F ?Unit#: [id number] ? Loc: AGO ? Status: REG POV ?? Reg Date: 10/20/18 ? Pt.Phone Number: ? ----- ------- Specimen: [id number] ? STATUS: SOUT ?Spec Date:10/20/18 ? Physician Copies: ?Naga Bhatti MD ? Tissues: ? Cervical/Endo Pap ?Taran Ryan CPT: 66398 ?? Units: ??1 ----- ------- ? CYTOLOGY [...] confirmed the above diagnosis. Test Performed by [facility], [address] [address] [place]: Azalea Tanner MD PHD ----- ------- Naga Bhatti MD PATHOLOGY ORDERABLES Performing Organization Address City/State/[facility] Co de Phone Number [facility] documented in this encounter Visit Diagnoses Not on filedocumented in this encounter Care Teams Family Educator Relationship Specialty Start Date End Date Jim Wei MD PCP - General 08/11/11 02/20/20 documented as of this encounter
--- OUTSIDE RECORDS SUMMARY | 2024-06-02 16:48 | XMS_ITS | Encounter Summary ---
Author Organization [facility] Address [address] [place] [address] Care Team Providers Care Stone Setter Name Role Phone Syjustensagarkaitlinjesu Arlen BARROS Primary Care Provider + Reason for Visit * Reason Onset Date Comments Appointment Related 08/09/2020 Appointment Related 08/10/2020 Encounter Details Date Type Department Care Team (Late st Contact Info) Description 08/09/2020 Telephone [facility] Rheumatology & Immunology - [address] [phone] Audi Smart MD [address] [place] [address], [address] [place] [address] Appointment Related; Appointment Related Social [...] on filedocumented in this encounter Care Teams Stone Setter Relationship Specialty Start Date End Date Arlen Ryan ND [address] [place] [phone] PCP - General 02/21/20 08/04/21 documented as of this encounter
--- OUTSIDE RECORDS SUMMARY | 2024-06-02 16:48 | XMS_ITS | Encounter Summary ---
Author Organization [facility] Address [address] [place] [address] Care Team Providers Care Body Shop Worker Name Role Phone Unavailable Primary Care Provider Unavailabl e Encounter Details Date Type Department Care Team (Latest Contact Info) Description 04/06/2002 11:20 EDT - 04/06/2002 11:59 EDT Hospital Encounter [facility] - Other [address] [place] [address] Benjamin Henson MD [address] [place] [address] Unknown, Provider, Discharge Disposition: Auto Discharge Social [...]
--- OUTSIDE RECORDS SUMMARY | 2024-06-02 16:48 | XMS_ITS | Encounter Summary ---
Author Organization [facility] Address [address] [place] [address] Care Team Providers Care Auditing Control Clerk Name Role Phone Jim Wei MD Primary Care Provider Un available Encounter Details Date Type Department Care Team (Late st Contact Info) Description 10/25/2013 Historical Results Only [facility] - Main [address] [phone] Naga Bhatti MD Social History Tobacco Use [...] 17:2 8 EST 10/25/2013 17:28 EST Narrative [facility] - 10/28/2013 15:35 EST ----- ------- Name: BARBI IVEY Stephani ?: [birth year] ?Age/Sex: 43/F ?Unit#: [id number] ? Loc: AGO ? Status: REG POV ?? Reg Date: 10/25/13 ? Pt.Phone Number: ? ----- ------- Specimen: [id number] ?STATUS: SOUT ?Spec Date:10/25/13 ? Physician Copies: ?Naga Bhatti MD ? Tissues: ? Cervical/Endo Pap ?Jim Wei CPT: 10015 ?? Units: ??1 ----- ------- ? CYTOLOGY [...] confirmed the above diagnosis. Test Performed by [facility], [address] [place] [address] Relationship Assoc: Azalea Tanner MD PHD ----- ------- Naga Bhatti MD PATHOLOGY ORDERABLES [facility] documented in this encounter Visit Diagnoses Not on filedocumented in this encounter Care Teams Auditing Control Clerk Relationship Specialty Start Date End Date Jim Wei MD PCP - General 08/11/11 02/20/20 documented as of this encounter
[2024-06-02 18:20] LABS: Anion Gap 10.6 mmol/L (3-11); BUN 12 mg/dL (7-18); CO2 24.4 mmol/L (21.0-32.0); CREATININE 0.8 mg/dL (0.55-1.02); Calcium 9.5 mg/dL (8.5-10.1); Chloride 102 mmol/L (98-107); Estimated GFR 90.27 (mL/min/1.73m2); Glucose 85 mg/dL (74-106); Potassium 3.5 mmol/L (3.5-5.1); Sodium 137 mmol/L (136-145)
== END 2024-06-02 16:39 | disposition home or self-care (01) ==
LOC: NCHCN 16:38
PROVIDERS: PCP Physician Assistant; Visit Provider Physician Assistant
DX: E87.6 Hypokalemia (principal)
CPT/HCPCS: 80048

== ENCOUNTER 2024-09-29 13:57 | Outpatient (REF) | payer MEDICAID, SELFPAY ==
[2024-09-29 16:07] LABS: Anion Gap 11.9 mmol/L (3-11); BUN 10 mg/dL (7-18); CO2 24.1 mmol/L (21.0-32.0); CREATININE 0.8 mg/dL (0.55-1.02); Calcium 9.2 mg/dL (8.5-10.1); Chloride 106 mmol/L (98-107); Estimated GFR 90.27 (mL/min/1.73m2); Glucose 102 mg/dL (74-106); Potassium 3.4 mmol/L (3.5-5.1); Sodium 142 mmol/L (136-145)
== END 2024-09-29 13:58 | disposition home or self-care (01) ==
LOC: NCHCN 13:57
PROVIDERS: PCP Physician Assistant; Visit Provider Physician Assistant
DX: I10 Essential (primary) hypertension (principal)
CPT/HCPCS: 80048

== ENCOUNTER 2025-02-01 13:00 | Outpatient (REF) | payer MEDICAID, SELFPAY ==
[2025-02-01 16:04] LABS: Anion Gap 10.6 mmol/L (3-11); BUN 13 mg/dL (7-18); CO2 26.4 mmol/L (21.0-32.0); CREATININE 0.6 mg/dL (0.55-1.02); Calcium 9.3 mg/dL (8.5-10.1); Chloride 105 mmol/L (98-107); Estimated GFR 109.28 (mL/min/1.73m2); Glucose 107 mg/dL (74-106); Potassium 3.7 mmol/L (3.5-5.1); Sodium 142 mmol/L (136-145)
== END 2025-02-01 13:01 | disposition home or self-care (01) ==
LOC: NCHCN 13:00
PROVIDERS: PCP Physician Assistant; Visit Provider Physician Assistant
DX: I10 Essential (primary) hypertension (principal)
CPT/HCPCS: 80048

== ENCOUNTER 2025-04-19 19:12 | Emergency (ER) | payer MEDICAID, SELFPAY ==
[2025-04-19 19:13] VITALS: BP 144/83; PULSE 94; RESP 18; TEMP 36.9; O2SAT 95
[2025-04-19] MEDS: Lidocaine 1% Pres-Free 5 ML VIAL IJ (20:00)
--- NOTE | 2025-04-19 20:11 | W.ED.GENAD ---
Discharge Plan Disposition Patient Disposition: Home Condition: Stable Discharge Details Clinical Impression: Laceration of finger of right hand Primary Care Provider: Aníbal Christopher ED Provider: Kate Luciano Home Meds and New Rx's Prescriptions: No Action duloxetine 60 mg capsule,delayed release(DR/EC) 60 mg PO DAILY pantoprazole 40 mg tablet,delayed release (DR/EC) See Rx Instructions .ROUTE .COMPLEX Qty: 30 12RF Dose Instruction: TAKE ONE TABLET BY MOUTH EVERY DAY Rx Instructions: TAKE ONE TABLET BY MOUTH EVERY DAY buspirone 10 mg tablet 5 mg PO BID amitriptyline 10 mg tablet 10 mg PO QHS tizanidine 4 mg tablet 4 mg PO TID PRN lorazepam 0.5 mg tablet 0.5 mg PO DAILY PRN amlodipine 10 mg tablet 10 mg PO DAILY lisinopril 5 mg tablet 5 mg PO DAILY albuterol sulfate 90 mcg/actuation HFA aerosol inhaler 2 puff inhalation Q4H PRN ProAir RespiClick 90 mcg/actuation aerosol powdr breath activated 2 inh inhalation Q4H PRN potassium chloride [Klor-Con M10] 10 MEQ tablet,ER particles/crystals 20 meq PO DAILY Qty: 90 0RF magnesium oxide 400 MG capsule 800 mg PO DAILY Qty: 90 0RF Discharge Instructions Instructions: Laceration Repair With Stitches ED Additional Instructions: You were seen in the emergency department today for evaluation of a laceration sustained while cutting an avocado. In our department he had a full physical examination performed and there is no sign that you damaged any of the tendons, nerves, or blood vessels. Your wound was repaired with stitches, these need to come out in 7 to 10 days. I have provided you with the splint to wear to prevent excessive motion of the finger. Please keep the area clean and dry, it is okay to wash your hands with soap and water, just pat dry gently and place a bandage with antibiotic ointment over it, changing it at least once per day. You can use Tylenol and ibuprofen as needed for management of pain. Please follow-up with your primary care provider in the next few days to discuss this visit and any symptoms that change, worsen, or persist. Thank you for allowing us to be part of your care. HPI General Mode of arrival: ambulatory. Date/Time Provider Initiated Documentation: 04/19/25 19:21. Limitations to Documentation: no limitations. Information obtained by: patient, family and old records reviewed. HPI Narrative: This is a 49-year-old female patient without significant past medical history presenting for a finger laceration. The patient was in her normal state of health until just prior to arrival, she was cutting an avocado when the knife slipped and she sustained a laceration to the palmar aspect of her right index finger. She is left-hand dominant, states that she did not injure any other part of her body, denies numbness, tingling, or weakness distal to the injury. Reports that her last tetanus shot was within the last 5 years. She has not taken any medications for management of pain Related Data Home Medications ?Medication ?Instructions ?Recorded ?Confirmed magnesium oxide 800 mg (2 x 400 mg magnesium) PO 10/06/15 04/19/25 DAILY #90 caps potassium chloride 10 mEq 20 meq (2 x 10 mEq) PO DAILY ##90 10/06/15 04/19/25 tablet,extended release(part/cryst) (Klor-Con M) duloxetine 60 mg capsule,delayed 60 mg PO DAILY 11/07/20 04/19/25 release pantoprazole 40 mg tablet,delayed See Rx Instructions .Route 06/30/24 04/19/25 release .COMPLEX #30 tabs albuterol sulfate 90 mcg/actuation 2 puff inhalation Q4H PRN 03/31/25 04/19/25 aerosol inhaler albuterol sulfate 90 mcg/actuation 2 inh inhalation Q4H PRN 03/31/25 04/19/25 breath activated powder inhaler (ProAir RespiClick) amitriptyline 10 mg tablet 10 mg PO QHS 03/31/25 04/19/25 amlodipine 10 mg tablet 10 mg PO DAILY 03/31/25 04/19/25 buspirone 10 mg tablet 5 mg PO BID 03/31/25 04/19/25 lisinopril 5 mg tablet 5 mg PO DAILY 03/31/25 04/19/25 lorazepam 0.5 mg tablet 0.5 mg PO DAILY PRN 03/31/25 04/19/25 tizanidine 4 mg tablet 4 mg PO TID PRN 03/31/25 04/19/25 Previous Rx's ?Medication ?Instructions ?Recorded magnesium oxide 800 mg (2 x 400 mg magnesium) PO 10/06/15 DAILY #90 caps potassium chloride 10 mEq 20 meq (2 x 10 mEq) PO DAILY ##90 10/06/15 tablet,extended release(part/cryst) (Klor-Con M) pantoprazole 40 mg tablet,delayed See Rx Instructions .Route 06/30/24 release .COMPLEX #30 tabs Allergies Allergy/AdvReac Type Severity Reaction Status Date / Time amoxicillin Allergy Mild Hives Verified 04/19/25 19:18 sulfamethoxazole (From Allergy Mild hives Verified 04/19/25 19:18 Bactrim) trimethoprim (From Bactrim) Allergy Mild hives Verified 04/19/25 19:18 Milk Containing Products Allergy Unknown stomache Verified 04/19/25 19:18 (Dairy) issues adhesive Allergy rash/bliste Verified 04/19/25 19:18 rs Penicillins Allergy Hives Verified 04/19/25 19:18 eggplant Allergy Skin Rash Uncoded 04/19/25 19:18 peppers Allergy Skin Rash Uncoded 04/19/25 19:18 potatoes Allergy Skin Rash Uncoded 04/19/25 19:18 tomatoes Allergy Skin Rash Uncoded 04/19/25 19:18 General Stated Complaint: Laceration PJ: 4 Exam Narrative Exam Narrative: Gen: Awake and alert, in no apparent distress HEENT: Non-icteric sclera Neck: Supple Lungs: No apparent respiratory distress, normal respiratory effort. CV: Appears well perfused Abdomen: Non-distended MSK: Moves 4 extremities without apparent limitation in ROM. The patient has full range of motion of the affected right index finger, as well as full resisted flexion and extension. Tendon is not visible, subcutaneous tissue well-preserved overlying deep structures on exploration of the 1-1/2 cm laceration on the palmar aspect of the right index finger just distal to the MCP crease. Brisk capillary refill and preserved sensation distal to the laceration. Skin: Visualized skin without rashes, cyanosis. Neuro: Normal Gait, no obvious focal deficits or facial asymmetry. Speaks in full, clear sentences. Psych: Appropriate for situation. Course Vital Signs Vital signs: Vital Signs Temperature 36.9 C 04/19/25 19:13 Pulse 94 H 04/19/25 19:13 Respiratory Rate 18 04/19/25 19:13 Blood Pressure 144/83 H 04/19/25 19:13 Pulse Oximetry 95 04/19/25 19:13 Temperature 36.9 C 04/19/25 19:13 Temperature Source Temporal Artery Scan 04/19/25 19:13 Pulse 94 H 04/19/25 19:13 Respiratory Rate 18 04/19/25 19:13 Blood Pressure 144/83 H 04/19/25 19:13 Pulse Oximetry 95 04/19/25 19:13 Oxygen Delivery Method Room Air 04/19/25 19:13 Oxygen Flow Rate 0 04/19/25 19:13 Pain Level 6 04/19/25 19:13 Procedure Laceration Laceration 1: Date of Procedure: 04/19/25 Time of procedure: 21:00 Provider that performed the procedure: Kate Luciano Standard Time Out Performed: No Patient Consented: Verbally Site: hand Side (If applicable): right Description: linear Depth: simple, single layer Local anesthetic: Lidocaine 1% Amount of anesthesia used (mL): 2 Pre-repair:: wound explored, irrigated extensively and deep structures intact Skin layer closed with: nylon Suture size: 5-0 Number of sutures:: 5 Technique: simple, interrupted Complications: None Medical Decision Making This is a 49-year-old female patient presenting for evaluation of a finger laceration. Differential includes but is not limited to laceration, exam is less for tendon or ligamentous injury, no evidence of neurovascular derangement. Mechanism less concerning for fracture or foreign body. We repaired the laceration as noted above, and placed the patient in a finger splint to prevent excessive motion which could dislodge sutures. The wound was thoroughly cleansed and has no evidence of superinfection that would warrant oral antibiosis. The patient was counseled on wound care, sutures to be removed in 7 to 10 days. At this time, the patient has had a full medical evaluation and is safe for discharge to home. They are hemodynamically stable, ambulatory, and tolerating PO. They are understanding of the follow-up plan and return precautions. They left our facility without incident. Kate Luciano MD [facility] All Active Problems (Updated 04/19/25 @ 20:12 by Kate Luciano MD) Laceration of finger of right hand (Acute) Otalgia, left ear (Acute) Diverticula of colon (Acute) GERD (gastroesophageal reflux disease) (Chronic) Fibromyalgia (Acute) Contusion of elbow (Acute) Medical History (Updated 04/19/25 @ 20:12 by Kate Luciano MD) HLD (hyperlipidemia) Hypokalemia Anxiety disorder Liver disease Low back pain Pain of left hip joint Eating disorder Screening for malignant neoplasm of colon performed Colon cancer screening Aftercare following right shoulder joint replacement surgery Hypertension Allergic rhinitis Neck pain Migraine headache Nephrolithiasis Lumbar radiculitis Lyme disease Abnormal EKG Mitral insufficiency Arthralgia Positive antinuclear antibody Hip pain Fibromyalgia Hot flashes, menopausal Depression Hx of fracture of finger RRF Surgical History (Updated 03/31/25 @ 09:22 by Zoraida Lopez, FANNY) History of carpal tunnel release right History of arthroscopy of right shoulder History of arthroscopy of hip left History of D&C x2 after [facility] and [facility] H/O laparoscopy BTL 08/10/2003 [facility] History of colonoscopy (~05/2023) History of esophagogastroduodenoscopy (~05/2023) Biopies taken H/O: section 1998, 2001 H/O right wrist surgery Family History (Updated 03/31/25 @ 09:23 by Zoraida Lopez RN) Mother Heart attack Hypertension Heart failure Other Heart disease Hyperlipidemia Osteoporosis Stroke Thyroid disorder Social History (Updated 10/30/23 @ 17:30 by Jammie Jameson MD) Smoking/Tobacco Use Status: Never Smoking risk assessment performed?: Yes Alcohol Intake: current Alcohol Intake frequency: holidays/special occasions only Details: Not since taking gabapentin Drug use: Daily Substance use type: marijuana Household members: spouse, significant other and children Housing: house Number of Children: 3 current occupation: Not Employed Current gender identity: female What type of physical activity do you participate in: walking and independent ambulation Seatbelt use: always Do you feel safe at home: Yes Do you feel safe in your relationship?: Yes Female Reproductive History Menstrual Age of Menarche: 12 Menopause type: natural Date of menopause: 08/31/17 History History 4 Para 2 Hx # Term Pregnancies 1 Multiple births Hx # Pregnancies 1 Ectopic pregnancies AB induced Hx Number of Living Children 2 AB spontaneous 2 Past Pregnancies Del. Date GA/Weeks # Preg Succ Route Wgt Sex Labor Lgth Anesthesia Location Prov Complic Unknown 8 No Unknown 13 No 02/20/99 No Yes Female [facility] 08/16/02 36 No Yes Male [facility] [place] Delivery Date: Last Updated by: Jammie Jameson MD [facility] - D&C Delivery Date: Last Updated by: Jammie Jameson MD [facility] - D&C
== END 2025-04-19 20:22 | disposition home or self-care (01) ==
PROVIDERS: Emergency Provider Emergency Medicine; PCP Physician Assistant
DX: S61.210A Laceration without foreign body of right index finger without damage to nail, initial encounter (principal); W26.0XXA Contact with knife, initial encounter
CPT/HCPCS: 12001; J2003

== ENCOUNTER 2025-05-17 15:30 | Outpatient (REF) | payer MEDICAID, SELFPAY ==
[2025-05-17 16:18] LABS: ALT 28 U/L (14-59); AST 24 U/L (15-37); Albumin 4.0 g/dL (3.4-5.0); Alkaline Phosphatase 111 U/L (46-116); Anion Gap 14.3 mmol/L (3-11); BUN 18 mg/dL (7-18); Bilirubin, Total 0.4 mg/dL (0.2-1.0); CO2 22.7 mmol/L (21.0-32.0); Calcium 9.0 mg/dL (8.5-10.1); Calculated LDL 163 mg/dL (<100); Chloride 105 mmol/L (98-107); Cholesterol 241 mg/dL (<200); Estimated GFR 105.30 (mL/min/1.73m2); Glucose 79 mg/dL (74-106); HDL Cholesterol 55 mg/dL (>or=50); Potassium 4.1 mmol/L (3.5-5.1); Sodium 142 mmol/L (136-145); Total Protein 7.0 g/dL (6.4-8.2); Triglyceride 119 mg/dL (<150)
== END 2025-05-17 15:31 | disposition home or self-care (01) ==
LOC: NCHCN 15:30
PROVIDERS: PCP Physician Assistant; Visit Provider Physician Assistant
DX: E78.5 Hyperlipidemia, unspecified (principal)
CPT/HCPCS: 80053; 80061